=== PATIENT | female | born 1990 | race Caucasian/White ===

== ENCOUNTER 2019-09-05 18:17 | Emergency (ER) | payer BC, OTHER, SELFPAY ==
[2019-09-05 18:22] VITALS: BP 125/71; PULSE 98; RESP 18; TEMP 36.4; O2SAT 100
--- NOTE | 2019-09-05 18:31 | ED.GENADULT ---
HPI - General Adult General Chief complaint: Unspecified Stated complaint: Lupus Rash Pain Time Seen by Provider: 09/05/19 18:31 Source: patient Mode of arrival: ambulatory Limitations: no limitations History of Present Illness HPI narrative: Patient is a 29 yo female with a history of Lupus who presents to the ED for bilateral elbow rash and itching. Patient reports she used to be on Plaquenil for her SLE and has been on steroid bursts intermittently. Pt has been without her medications or reliable Rheumatology follow up since start of pandemic as office of Dr. Varma at [facility] has been moved to mostly tele health visits. Patient without any fever cough, shortness of breath, chest pain. She is reporting some right hand pain in her index finger without trauma to the hand. No redness, swelling, rash. No difficulty with movement. No weakness. Related Data Allergies Allergy/AdvReac Type Severity Reaction Status Date / Time amoxicillin Allergy Unknown Rash Verified 09/05/19 18:35 metoclopramide Allergy Unknown Other Verified 09/05/19 18:35 STATES SENSITIVE TO LOTS OF AdvReac Unknown Unknown Uncoded 09/05/19 18:35 MEDS Review of Systems Review of Systems: Narrative: CONSTITUTIONAL: Denies fever CARDIOVASCULAR: Denies chest pain RESPIRATORY: Denies cough or dyspnea. GASTROINTESTINAL: Denies abdominal pain SKIN: Reports bilateral elbow rash MUSCULOSKELETAL: Denies back pain NEUROLOGIC: Denies headache [facility] Past Medical History Medical History (Updated 09/05/19 @ 18:47 by Milka Sewell MD) Anxiety Depression Lupus Pancreatitis Pulmonary embolism Seizure Surgical History Surgical History (Updated 09/05/19 @ 18:43 by Milka Sewell MD) History of cholecystectomy Social History Social History (Updated 09/05/19 @ 18:43 by Milka Sewell MD) Smoking status: Never smoker Alcohol intake: never Substance use: never Gender identity (if verbalized by the patient): Female Exam Narrative: Exam Narrative: GENERAL: Awake, alert, conversant HEAD: Normocephalic, atraumatic. EYES: PERRLA and EOMI. ENT: Nares clear, no rhinorrhea or epistaxis. Mucous membranes moist. NECK: Supple. CHEST: No respiratory distress, breathing even and non labored HEART: Regular rate, sinus rhythm ABDOMEN:Non distended, non tender EXTREMITIES: Normal range of motion. No edema. Intact sensation in the right hand median, ulnar, radial nerve. 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 No deficits. No deformity. SKIN: Warm, dry, mild erythema to bilateral elbows, maculopapular rash, possibly early psoriasis versus eczematous changes. No herpetic lesions, blistering. Range of motion of the elbows without pain. NEURO:No focal deficits. Alert and oriented x3 Course Course Emergency Course: Patient presented for evaluation of rash and hand pain. Pain is atraumatic, exam is notable for bilateral elbow rash that seems most concerning for eczematous rash versus psoriatic rash and is probably likely related to the patient's lupus history. Patient has no sign of anaphylaxis or cellulitis. Patient is neurovascularly intact without injury or deformity. I reviewed the patient's laboratory work-up, she has been on Plaquenil in the past and we will restart this that she is currently on a's medication, we also start patient on a steroid burst and advised her she the importance of following up with her lupus doctor, Dr. Varma at [facility]. Vital Signs Vital signs: Vital Signs Temperature 36.4 C L 09/05/19 18:22 Pulse Rate 98 09/05/19 18:22 Respiratory Rate 18 09/05/19 18:22 Blood Pressure 125/71 09/05/19 18:22 Pulse Oximetry 100 09/05/19 18:22 Temperature 36.4 C L 09/05/19 18:22 Pulse Rate 98 09/05/19 18:22 Respiratory Rate 18 09/05/19 18:22 Blood Pressure 125/71 09/05/19 18:22 Pulse Oximetry 100 09/05/19 18:22 Medical Decision Making Vital Signs Vital Signs: Vital Signs Temperature 36.4 C L
[2019-09-05] MEDS: methylPREDNISolone SOD SUCC 125 MG VIAL IM (19:07)
== END 2019-09-05 19:12 | disposition home or self-care (01) ==
PROVIDERS: Emergency Provider Emergency Medicine
DX: R21 Rash and other nonspecific skin eruption (principal); M32.19 Other organ or system involvement in systemic lupus erythematosus; Z86.711 Personal history of pulmonary embolism
CPT/HCPCS: 96372; 99283; J2930

== ENCOUNTER 2019-11-09 21:03 | Emergency (ER) | payer BC, OTHER, SELFPAY ==
--- NOTE | ~2019-11-09 | CT_ITS ---
EXAMINATION: CTA chest PE abdomen pel EXAM DATE: 11/09/2019 22:18 INDICATION: Right flank pain. TECHNIQUE: Spiral CTA of the chest (pulmonary arteries) was performed with 100 cc Omnipaque 350 intr avenous contrast injection. Images were acquired during the pulmonary arterial phase. Coronal maxi mum intensity projection 3D-reconstructions were created by the technologist on dedicated workstation . Axial, coronal and sagittal reformatted images were reviewed. Spiral CT of the abdomen and pelvis was then performed with the same intravenous contrast injection. Axial, coronal and sagittal reform atted images were reviewed. The dose-length product (DLP) for this examination was 607.91 mGy-cm. T he exposure was tailored according to patient size (auto mA exposure control), and iterative reconst ruction (ASIR) was used as additional dose reduction technique. Correlation is made to CT abdomen pel vis 2014. FINDINGS: CHEST: Pulmonary arteries are well opacified and without intraluminal filling defects. No thoracic aortic dissection. Several small pulmonary nodules up to about 4 mm likely postinfectious. There i s trace right pleural effusion. Tracheobronchial tree is patent. There is no mediastinal, hilar or axillary lymphadenopathy. There is no pneumothorax. Heart normal in size. No evidence of coron melissa arterial calcification. ABDOMEN PELVIS: The liver, spleen, adrenal glands and pancreas are unremarkable. There are cholecyst ectomy clips. Previously seen biliary common bile duct stent has been removed. Portal and splenic vei ns are patent. Kidneys enhance symmetrically. There is no hydronephrosis. Numerous small renal cyst s bilaterally. No suspicious renal lesions. There is an IVC filter without evidence of thrombus below . The uterus is anteverted and morphologically normal. Previously seen IUD has been removed. Physiol ogic right ovarian cyst. The bladder is unremarkable. There is a lymph node just deep to the left inguinal canal measuring 1.5 x 1.2 cm, the largest lymph node identified. Other scattered pelvic lymp h nodes upper limits of normal in size. Nodes have increased in conspicuity, size compared to 2014. The appendix is normal. The stomach and small bowel are unremarkable. There is expected amount of c olonic stool. No free intraperitoneal gas. There are no osteoblastic or osteolytic lesions identi fied. IMPRESSION: 1. No pulmonary emboli or acute intra-abdominal findings. 2. Single mildly enlarged left external iliac lymph node, with other scattered bilateral pelvic lymp h nodes and axillary lymph nodes upper limits of normal in size. Probably reactive. Optional follow- up [address] pelvis. 3. Several small pulmonary nodules likely postinfectious. Optional one-year follow-up low-dose chest CT. Reviewed, dictated and finalized at location A. IMPRESSION: 1. No pulmonary emboli or acute intra-abdominal findings. 2. Single mildly enlarged left external iliac lymph node, with other scattered bilateral pelvic lymph nodes and axillary lymph nodes upper limits of normal i n size. Probably reactive. Optional follow-up [address] pelvis. 3. Several small pulmonary nodules likely postinfectious. Optional one-year fo llow-up low-dose chest CT.
[2019-11-09 21:08] VITALS: BP 115/75; PULSE 78; RESP 20; TEMP 37.1; O2SAT 100
[2019-11-09 21:27] LABS: Basophils Percent Auto 0.5 % (0.2-1.2); Eosinophils Absolute Auto 0.1 K/mm3 (0-0.3); Eosinophils Percent Auto 1.1 % (0-4.4); Hematocrit 35.1 % (37.0-47.0); Hemoglobin 12.2 g/dL (12.0-15.0); Immature Granulocyte Absolute 0.02 K/mm3 (0.00-0.031); Immature Granulocyte Percent A 0.4 % (0-0.5); Lymphocytes Absolute Auto 1.76 K/mm3 (0.9-3.2); Mean Corpuscular HGB Conc 34.8 g/dl (32-36); Mean Corpuscular Hemoglobin 29.3 pg (26-34); Mean Corpuscular Volume 84.4 fl (80-100); Mean Platelet Volume 10.1 fl (7.4-10.4); Monocytes Absolute Auto 0.5 K/mm3 (0.1-0.6); Monocytes Percent Auto 9.3 % (2.6-8.5); Neutrophils Absolute Auto 3.3 K/mm3 (1.3-6.7); Neutrophils Percent Auto 57.7 % (45.5-73.1); Platelet Count Result 237 k/mm3 (150-375); Red Blood Count 4.16 M/mm3 (4.2-5.4); Red Cell Distribution Width 13.7 % (11.5-14.5); White Blood Count 5.7 K/mm3 (4.5-10.0)
[2019-11-09 21:31] LABS: Add Urine Microscopic? YES; Appearance Urine Clear (Clear); Bacteria Urine Trace /hpf; Bilirubin Urine Negative (Negative); Blood Urine Negative (Negative); Color Urine Yellow (Yellow); Glucose Urine UA Negative (Negative); Ketones Urine Negative (Negative); Leukocyte Esterase Ur Negative LEU/UL (Negative); Mucus Urine Moderate /lpf; Nitrate Urine Negative (Negative); Protein Urine 1+ mg/dL (Negative); RBC Urine 0-2 /hpf (0-2); Specific Grav Ur 1.029 (1.001-1.035); Squamous Epithelial Cell Urine Few /hpf (Few)
--- NOTE | 2019-11-09 21:31 | ED.ABDPAIN ---
HPI - Abdominal Pain General Chief Complaint: Abdominal Pain Stated Complaint: R FLANK PAIN Time Seen by Provider: 11/09/19 21:08 Source: RN notes reviewed History of Present Illness HPI narrative: Patient presents emergency department from home for flank pain. Patient states the pain began yesterday. Pain is located in the right flank described as sharp and stabbing in nature does not radiate. States the pain does improve when she lays down she denies any fevers or chills abdominal pain nausea vomiting diarrhea or any other symptoms. Patient does states she has a history of lupus and pulmonary embolism back in 2012 is no longer on blood thinners. States she took no pain medication today Related Data Allergies Allergy/AdvReac Type Severity Reaction Status Date / Time amoxicillin Allergy Unknown Rash Verified 09/05/19 18:35 metoclopramide Allergy Unknown Other Verified 09/05/19 18:35 STATES SENSITIVE TO LOTS OF AdvReac Unknown Unknown Uncoded 09/05/19 18:35 MEDS Review of Systems Review of Systems: Narrative: Gen.: Denies fevers or chills ENT: Denies congestion Respiratory: Denies shortness of breath or cough CV: Denies chest pain or palpitations GI: Denies abdominal pain nausea, emesis or diarrhe reports right flank pain denies burning, urgency, frequency or hematuria Musculoskeletal: Denies back pain or muscle pain Neuro: Denies numbness, tingling, weakness or focal weakness Skin: Denies rash Except as documented, all other systems reviewed and negative [facility] Past Medical History Medical History Anxiety Depression Lupus Pancreatitis Pulmonary embolism Seizure Surgical History Surgical History (Updated 09/05/19 @ 18:43 by Milka Sewell MD) History of cholecystectomy Social History Social History Smoking status: Never smoker Alcohol intake: never Substance use: never Gender identity (if verbalized by the patient): Female Exam Narrative: Exam Narrative: APPEARANCE: No acute distress, nontoxic, resting in bed EYES: EOMI HEENT: Normocephalic, atraumatic, OMM RESPIRATORY: No respiratory distress Clear to auscultation bilaterally with no rhonchi wheezing or rales. CARDIOVASCULAR: Regular rate and rhythm without murmurs rubs or gallops. ABDOMINAL: Soft, nontender, nondistended, no rebound or guarding tender in right flank no overlying rash Back: Normal MUSCULOSKELETAl: Moves all extremities. No clubbing, cyanosis or edema. NEURO: Awake and alert. Following commands, speech normal, no focal deficits SKIN:: Warm, dry. No rashes lesions or abrasions PSYCHIATRIC: Normal affect/mood, Course Course Emergency Course: Following CT scan again reexamined no tenderness in right lower quadrant believe this is musculoskeletal at this time Discussed with patient results of workup and diagnosis. Discussed need for follow-up with primary care, proper use of medication, and reasons to return to the emergency department. Patient understands and agrees to current treatment plan Vital Signs Vital signs: Vital Signs Temperature 98.8 F 11/09/19 21:08 Pulse Rate 78 11/09/19 21:08 Respiratory Rate 20 11/09/19 21:08 Blood Pressure 115/75 11/09/19 21:08 Pulse Oximetry 100 11/09/19 21:08 Temperature 98.8 F 11/09/19 21:08 Pulse Rate 78 11/09/19 23:23 Respiratory Rate 16 11/09/19 23:23 Blood Pressure 122/74 11/09/19 23:23 Pulse Oximetry 98 11/09/19 23:23 MDM - Abdominal Pain Lab Data Result diagrams: 11/09/19 21:21 11/09/19 21:21 Labs: Lab Results 11/09/19 11/09/19 11/09/19 Range/Units 21:21 21:21 21:21 WBC 5.7 (4.5-10.0) K/mm3 RBC 4.16 L (4.2-5.4) M/mm3 Hgb 12.2 (12.0-15.0) g/dL Hct 35.1 L (37.0-47.0) % MCV 84.4 (80-100) fl MCH 29.3 (26-34) pg MCHC 34.8 (32-36) g/dl RDW 13.7 (11.5-14.5)
--- NOTE | 2019-11-09 21:33 | ECG_ITS ---
Measurements Intervals [place] Rate: 72 P: 36 [place]: 140 QRS: 43 QRSD: 90 T: 29 QT: 389 QTc: 428 Interpretive Statements SINUS RHYTHM POSSIBLE LEFT ATRIAL ENLARGEMENT INCOMPLETE RIGHT BUNDLE BRANCH BLOCK BORDERLINE T WAVE ABNORMALITY- ANTERIOR LEADS BORDERLINE ECG Electronically Signed On 11-10-2019 7:33:04 CDT by Rina Mallory D.O.
[2019-11-09 21:38] LABS: Alanine Aminotransferase 39 U/L (4-35); Albumin Level 4.6 g/dL (3.5-5.1); Alkaline Phosphatase 64 U/L (38-126); Anion Gap 11.8 mmol/L (7-16); Aspartate Amino Transferase 49 U/L (14-36); Blood Urea Nitrogen 11 mg/dL (7-17); Calcium 9.3 mg/dL (8.4-10.2); Carbon Dioxide 27 mmol/L (22-30); Chloride 101 mmol/L (98-107); Estimated CRCL calculation 125 ml/min; Estimated Glomerular Filt Rate > 60; Glucose 102 mg/dL (65-105); Lipase 148 U/L (23-300); Potassium 3.8 mmol/L (3.4-5.0); Sodium 136 mmol/L (137-145)
[2019-11-09 21:48] LABS: INR 0.9; Partial Thromboplastin Time 27.5 SECONDS (22.3-36.8); Prothrombin Time 12.2 Seconds (11.1-14.7)
[2019-11-09] MEDS: ONDANSETRON INJ 4 MG/2 ML VIAL IV PUSH (22:31)
[2019-11-09] MEDS: MORPHINE SULFATE 4 MG/ML INJ IV PUSH (23:20)
[2019-11-09 23:23] VITALS: BP 122/74; PULSE 78; RESP 16; O2SAT 98
[2019-11-10 00:14] VITALS: BP 118/73; PULSE 81; RESP 16; O2SAT 99
== END 2019-11-10 00:15 | disposition home or self-care (01) ==
PROVIDERS: Emergency Provider Emergency Medicine
DX: R10.9 Unspecified abdominal pain (principal); Z86.711 Personal history of pulmonary embolism; R94.31 Abnormal electrocardiogram [ECG] [EKG]; I45.10 Unspecified right bundle-branch block
CPT/HCPCS: 36415; 71275; 74177; 80053; 81001; 81025; 83690; 85025; 85610; 85730; 93005; 96365; 96375; 99284; J0131; J2270; J2405; Q9967

== ENCOUNTER 2019-11-18 01:00 | Emergency (ER) | payer BC, OTHER, SELFPAY ==
--- NOTE | ~2019-11-18 | CT_ITS ---
EXAMINATION: CT soft tissue neck w con DATE: 11/18/2019 03:05 INDICATION: Right-sided neck pain. TECHNIQUE: Computed tomography (CT) of the neck was performed with 75 mL Omnipaque-350 intravenous co ntrast. Automated exposure control and iterative reconstruction technique were employed. The dose-nora gth product was 365.26 mGy-cm. COMPARISON: Chest CT 11/09/2019 FINDINGS: The palatine tonsils and lingual tonsils are enlarged. The epiglottis is normal. There are no pathologically enlarged lymph nodes. Tooth 5 is broken. There are carious lesions in teeth 3, 4, 1 9, and 20. IMPRESSION: 1. Enlarged palatine and lingual tonsils. No abscess. 2. Dental disease. Reviewed, dictated and finalized at location B.
[2019-11-18 01:03] VITALS: BP 114/73; PULSE 81; RESP 15; TEMP 37.3; O2SAT 100
--- NOTE | 2019-11-18 01:59 | ED.GENADULT ---
HPI - General Adult General Chief complaint: Ear Stated complaint: Intense ear pain Time Seen by Provider: 11/18/19 01:55 History of Present Illness HPI narrative: Patient presents with severe pain under and beneath her right ear. She also has a bad sore throat particularly on the right. She is never had a peritonsillar abscess. Started a couple days. She has had no fever chills or sweats. She has a hard time swallowing. Touching on the outside or swallowing makes it worse. She has lupus and she is on Plaquenil. 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. She is not on prednisone currently. She does not smoke cigarettes, drinks some alcohol, and does some marijuana. 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 Onset (ago): day(s) Location: neck Radiation: non-radiation Severity: severe Severity scale (1-10): 8 Quality: aching Pain Consistency: constant Relieving factors: none Exacerbating factors: other (Swallowing or palpitation) Associated symptoms: denies other symptoms Related Data Allergies Allergy/AdvReac Type Severity Reaction Status Date / Time amoxicillin Allergy Unknown Rash Verified 11/18/19 01:11 metoclopramide Allergy Unknown Other Verified 11/18/19 01:11 STATES SENSITIVE TO LOTS OF AdvReac Unknown Unknown Uncoded 11/18/19 01:11 MEDS Review of Systems Review of Systems: Narrative: CONSTITUTIONAL: Denies fever, chills, or sweats. EYES: Denies visual changes, redness, or discharge. ENT: Denies rhinorrhea, congestion, but does have sore throat, and ear pain. CARDIOVASCULAR: Denies chest pain, palpitations, or edema. RESPIRATORY: Denies cough or dyspnea. GASTROINTESTINAL: Denies abdominal pain, nausea, vomiting, or diarrhea. GENITOURINARY: Denies dysuria or hematuria. SKIN: Denies rash or itching. MUSCULOSKELETAL: Denies back pain, joint pain, or myalgia. NEUROLOGIC: Denies headache, numbness, or weakness. . All systems reviewed & are unremarkable except as noted in HPI and below PMFSH Past Medical History Medical History Anxiety Depression Lupus Pancreatitis Pulmonary embolism Seizure Surgical History Surgical History History of cholecystectomy Social History Social History Smoking status: Never smoker Alcohol intake: never Substance use: never Gender identity (if verbalized by the patient): Female Exam Narrative: Exam Narrative: GENERAL: Well-appearing, well-nourished, crying. HEAD: Normocephalic, atraumatic. EYES: PERRLA and EOMI. ENT: Nares clear, no rhinorrhea or epistaxis. Mucous membranes moist. Cannot see very well if the right soft palate is greater than the left. Tenderness beneath and behind the ear on the neck. NECK: Supple. CHEST: Clear to auscultation. No respiratory distress. HEART: Regular rate and rhythm. No murmur heard. Normal peripheral pulses. ABDOMEN: Soft, nontender, nondistended, normal active bowel sounds. EXTREMITIES: Normal range of motion. No edema. SKIN: Warm, dry, no rash. NEURO: No focal deficits. Alert and oriented x3. PSYCH: Sad and crying. Course Reevaluation(s) Reevaluation #1: Went in to tell the patient that there is no peritonsillar abscess. She does have tonsillitis. She tells me that she gets hives with amoxicillin. We will give clindamycin. She asked for a day off work. Date: 11/18/19 Time: 03:28 Vital Signs Vital signs: Vital Signs Temperature 99.2 F 11/18/19 01:03 Pulse Rate 81 11/18/19 01:03 Respiratory Rate 15 11/18/19 01:03 Blood Pressure 114/73 11/18/19 01:03 Pulse Oximetry 100 11/18/19 01:03 Temperature 99.2 F 11/18/19 01:03 Pulse Rate 81 11/18/19 01:03 Respiratory Rate 15 11/18/19 01:03 Blood Pressure 114/73 11/18/19 01:03 Pulse Oximetry 100 11/18/19 01:03 Medical Decision Making Medical Records Medical records rev
[2019-11-18] MEDS: MORPHINE SULFATE 4 MG/ML INJ IV PUSH (02:17)
[2019-11-18] MEDS: SODIUM CHLORIDE 0.9% IV 1,000 ML 999 ML IV CONT (02:18)
[2019-11-18 02:30] LABS: Basophils Percent Auto 0.2 % (0.2-1.2); Eosinophils Absolute Auto 0.1 K/mm3 (0-0.3); Eosinophils Percent Auto 1.5 % (0-4.4); Hematocrit 30.9 % (37.0-47.0); Hemoglobin 10.8 g/dL (12.0-15.0); Immature Granulocyte Absolute 0.02 K/mm3 (0.00-0.031); Immature Granulocyte Percent A 0.4 % (0-0.5); Lymphocytes Percent Auto 25.1 % (18.3-44.2); Mean Corpuscular Hemoglobin 29.3 pg (26-34); Mean Corpuscular Volume 83.7 fl (80-100); Mean Platelet Volume 10.2 fl (7.4-10.4); Monocytes Absolute Auto 0.5 K/mm3 (0.1-0.6); Monocytes Percent Auto 8.9 % (2.6-8.5); Neutrophils Absolute Auto 3.3 K/mm3 (1.3-6.7); Neutrophils Percent Auto 63.9 % (45.5-73.1); Platelet Count Result 233 k/mm3 (150-375); Red Blood Count 3.69 M/mm3 (4.2-5.4); Red Cell Distribution Width 13.3 % (11.5-14.5); White Blood Count 5.2 K/mm3 (4.5-10.0)
[2019-11-18 02:42] LABS: Lactic Acid 0.9 mmol/L (0.7-2.1)
[2019-11-18 02:43] LABS: Alanine Aminotransferase 31 U/L (4-35); Albumin Level 4.1 g/dL (3.5-5.1); Alkaline Phosphatase 70 U/L (38-126); Anion Gap 8 mmol/L (8-16); Aspartate Amino Transferase 41 U/L (14-36); Bilirubin,Total 0.6 mg/dL (0.2-1.3); Blood Urea Nitrogen 8 mg/dL (7-17); Calcium 9.1 mg/dL (8.4-10.2); Carbon Dioxide 23 mmol/L (22-30); Chloride 105 mmol/L (98-107); Estimated CRCL calculation 151 ml/min; Estimated Glomerular Filt Rate > 60; Glucose 109 mg/dL (65-105); Potassium 3.3 mmol/L (3.4-5.0); Sodium 136 mmol/L (137-145)
[2019-11-18] MEDS: CLINDAMYCIN HCL 150 MG CAP 300 MG PO (03:37)
[2019-11-18 03:40] VITALS: BP 122/79; PULSE 85; RESP 18; TEMP 36.8; O2SAT 98
== END 2019-11-18 03:41 | disposition home or self-care (01) ==
PROVIDERS: Emergency Provider Emergency Medicine
DX: J03.90 Acute tonsillitis, unspecified (principal); Z86.711 Personal history of pulmonary embolism
CPT/HCPCS: 36415; 70491; 80053; 83605; 85025; 87040; 87081; 87880; 96361; 96374; 99284; A9270; J2270; J7030; Q9967

== ENCOUNTER 2019-11-27 17:23 | Emergency (ER) | payer BC, OTHER, SELFPAY ==
--- NOTE | ~2019-11-27 | US_ITS ---
EXAMINATION: US pelvic complete w TV DATE: 11/27/2019 18:20 INDICATION: Low back and pelvic pain. TECHNIQUE: Multiple transabdominal and endovaginal sonographic images of the pelvis were obtained. COMPARISON: CT abdomen and pelvis dated 12/08/2013 FINDINGS: The anteverted uterus measures 6.5 x 3.9 x 4.3 cm. The endometrial complex measures 6 mm in thicknes s. A couple tiny nabothian cysts at the cervix. The right ovary measures 3.3 x 2.1 x 2.1 cm. The left ovary measures 3.0 x 2.4 x 2.6 cm. Bilateral anechoic ovarian cysts/follicles measuring 2.3 cm in th e left and 1.7 cm on the right. There is normal vascular flow in the ovaries. There is no free fluid in the pelvis. IMPRESSION: 1. Normal pelvic ultrasound. Reviewed, dictated and finalized at location A.
--- NOTE | ~2019-11-27 | CT_ITS ---
EXAMINATION: CT abdomen pelvis w con DATE: 11/27/2019 19:13 INDICATION: Left-sided abdominal and pelvic pain. TECHNIQUE: Computed tomography (CT) of the abdomen and pelvis was performed with 100 mL Omnipaque-350 intravenous contrast. Automated exposure control and iterative reconstruction technique were employe d. The dose-length product was 384.55 mGy-cm. COMPARISON: 11/09/2019 FINDINGS: Lung bases are clear. Heart size is normal. Indeterminate calcification along the inferior wall of th e right ventricle, unclear whether atherosclerotic or myocardial. No pericardial effusion. Cholecyste ctomy clips at the gallbladder fossa. Liver, spleen and bilateral adrenal glands are normal. There is likely inflammatory haziness to the fat surrounding the bilateral renal pelvises sees and ureters varner ggesting ascending urinary tract infections with pyelitis. Consider multiple bilateral low-attenuatio n renal cysts. Localized fatty atrophy to the tail of the pancreas with surrounding stranding which m ay represent sequela of prior pancreatitis cannot exclude acute interstitial pancreatitis. Infrarenal IVC filter. Bowels including the appendix are normal. Bilateral ovarian cysts/follicles measuring up to 2.2 cm on the left. Anteverted uterus is normal. Additional mild haziness surrounding the was nor mal-appearing bladder consistent with cystitis. No free intraperitoneal gas or fluid. No pathological ly enlarged abdominal or pelvic lymphadenopathy. Bones are unremarkable. IMPRESSION: 1. Inflammatory haziness to the fat surrounding the bladder, bilateral ureters and renal pelvises see s consistent with ascending urinary tract infection including cystitis and bilateral pyelitis. Correl ate with urinalysis. 2. Subtle stranding at the site of fatty atrophy of the tail of the pancreas likely sequela of chroni c pancreatitis although could not exclude acute pancreatitis. Correlate with clinical history and wit h amylase and lipase levels. Reviewed, dictated and finalized at location A. IMPRESSION: 1. Inflammatory haziness to the fat surrounding the bladder, bilateral ureters and renal pelvises sees consistent with ascending urinary tract infection inclu ding cystitis and bilateral pyelitis. Correlate with urinalysis. 2. Subtle stranding at the site of fatty atrophy of the tail of the pancreas karlos marrero sequela of chronic pancreatitis although could not exclude acute pancreati tis. Correlate with clinical history and with amylase and lipase levels.
[2019-11-27 17:45] VITALS: BP 104/64; PULSE 73; RESP 16; TEMP 36.7; O2SAT 98
--- NOTE | 2019-11-27 18:07 | ED.ABDPAIN ---
HPI - Abdominal Pain General Chief Complaint: Vaginal Bleeding <Holly Barkley PA-C - Last Filed: 11/27/19 21:28> Stated Complaint: Cyst On Ovary, Vag Bleeding <GARRETT Soto Last Filed: 11/27/19 21:28> Time Seen by Provider: 11/27/19 17:33 <Holly Barkley PA-C - Last Filed: 11/27/19 21:28> Source: patient <GARRETT Soto Last Filed: 11/27/19 21:28> Mode of arrival: ambulatory <GARRETT Soto Last Filed: 11/27/19 21:28> Limitations: no limitations <GARRETT Soto Last Filed: 11/27/19 21:28> History of Present Illness HPI narrative: This is a 29 year old female that presents to the ER for left lower back/pelvic pain since last night. Reports she started having vaginal spotting today. Reports she had just gotten off of her period. Reports dysuria. Denies fever, nausea, vomiting. <Holly Barkley PA-C - Last Filed: 11/27/19 21:28> Related Data Allergies/Adverse Reactions: Allergies Allergy/AdvReac Type Severity Reaction Status Date / Time amoxicillin Allergy Unknown Rash Verified 11/27/19 17:51 metoclopramide Allergy Unknown Other Verified 11/27/19 17:51 STATES SENSITIVE TO LOTS OF AdvReac Unknown Unknown Uncoded 11/18/19 01:11 MEDS <Holly Barkley PA-C - Last Filed: 11/27/19 21:28> Review of Systems Review of Systems: Narrative: CONSTITUTIONAL: Denies fever GASTROINTESTINAL: Reports abdominal/pelvic pain. Denies nausea, vomiting GENITOURINARY: Reports dysuria. Denies hematuria. MUSCULOSKELETAL: Reports back pain <GARRETT Soto Last Filed: 11/27/19 21:28> All systems reviewed & are unremarkable except as noted in HPI and below <GARRETT Soto Last Filed: 11/27/19 21:28> [facility], [facility] Social History Social History: Social History Smoking status: Never smoker Alcohol intake: never Substance use: never Gender identity (if verbalized by the patient): Female <Holly Barkley PA-C - Last Filed: 11/27/19 21:28> Exam Narrative: Exam Narrative: GENERAL: Well-appearing, well-nourished, and in no acute distress. HEAD: Normocephalic, atraumatic. EYES: EOMI. CHEST: Clear to auscultation. No respiratory distress. No wheezes rales or rhonchi HEART: Regular rate and rhythm. No murmur heard. Normal peripheral pulses. ABDOMEN: Soft, nondistended, normal active bowel sounds. Mild tenderness to palpation to the LLQ, without guarding. No CVA tenderness. EXTREMITIES: Normal range of motion. No edema. Strength equal in bilateral lower extremities (5/5) SKIN: Warm, dry, no rash. NEURO: No focal deficits. Alert and oriented x3. PSYCH: Normal mood and affect PELVIC: Normal external genitalia. Normal appearing cervix with mild white discharge. No CMT <Holly Barkley PA-C - Last Filed: 11/27/19 21:28> Course Vital Signs Vital signs: Vital Signs Temperature 36.7 C 11/27/19 17:45 Pulse Rate 73 11/27/19 17:45 Respiratory Rate 16 11/27/19 17:45 Blood Pressure 104/64 11/27/19 17:45 Pulse Oximetry 98 11/27/19 17:45 Temperature 36.8 C 11/27/19 21:41 Pulse Rate 78 11/27/19 21:41 Respiratory Rate 16 11/27/19 21:41 Blood Pressure 106/72 11/27/19 21:41 Pulse Oximetry 100 11/27/19 21:41 <Holly Barkley PA-C - Last Filed: 11/27/19 21:28> Vital Signs Temperature 36.7 C 11/27/19 17:45 Pulse Rate 73 11/27/19 17:45 Respiratory Rate 16 11/27/19 17:45 Blood Pressure 104/64 11/27/19 17:45 Pulse Oximetry 98 11/27/19 17:45 Temperature 36.8 C 11/27/19 21:41 Pulse Rate 78 11/27/19 21:41 Respiratory Rate 16 11/27/19 21:41 Blood Pressure 106/72 11/27/19 21:41 Pulse Oximetry 100 11/27/19 21:41 <Milka Sewell MD - Last Filed: 11/27/19 21:46> MDM - Abdominal Pain MDM Narrative Medical decision making narrative: Patient presents to the emergency department for left sided flank/abdomi
[2019-11-27] MEDS: SODIUM CHLORIDE 0.9% IV 1,000 ML 999 ML IV CONT (18:25)
[2019-11-27 18:30] LABS: Hematocrit 33.2 % (37.0-47.0); Hemoglobin 11.4 g/dL (12.0-15.0); Mean Corpuscular HGB Conc 34.3 g/dl (32-36); Mean Corpuscular Hemoglobin 29.3 pg (26-34); Mean Corpuscular Volume 85.3 fl (80-100); Mean Platelet Volume 10.3 fl (7.4-10.4); Platelet Count Result 245 k/mm3 (150-375); Red Blood Count 3.89 M/mm3 (4.2-5.4); Red Cell Distribution Width 13.9 % (11.5-14.5); White Blood Count 5.6 K/mm3 (4.5-10.0)
[2019-11-27 18:35] LABS: Add Urine Microscopic? YES; Appearance Urine Cloudy (Clear); Bacteria Urine 2+ /hpf; Bilirubin Urine Negative (Negative); Blood Urine 2+ (Negative); Color Urine Yellow (Yellow); Glucose Urine UA Negative (Negative); Ketones Urine Negative (Negative); Leukocyte Esterase Ur 2+ LEU/UL (Negative); Mucus Urine Rare /lpf; Nitrate Urine Positive (Negative); Protein Urine 2+ mg/dL (Negative); RBC Urine 21-50 /hpf (0-2); Specific Grav Ur 1.019 (1.001-1.035); Squamous Epithelial Cell Urine Occasional /hpf (Few); Urobilinogen Urine Negative mg/dL (<2.0); WBC Urine >75 /hpf
[2019-11-27 18:40] LABS: Prothrombin Time 12.4 Seconds (11.1-14.7)
[2019-11-27 18:41] LABS: Partial Thromboplastin Time 27.5 SECONDS (22.3-36.8)
[2019-11-27 18:43] LABS: Anion Gap 9 mmol/L (8-16); Blood Urea Nitrogen 11 mg/dL (7-17); Calcium 9.4 mg/dL (8.4-10.2); Carbon Dioxide 27 mmol/L (22-30); Chloride 105 mmol/L (98-107); Estimated CRCL calculation 124 ml/min; Estimated Glomerular Filt Rate > 60; Glucose 89 mg/dL (65-105); Potassium 3.8 mmol/L (3.4-5.0); Sodium 141 mmol/L (137-145)
[2019-11-27 18:48] LABS: Band Neutrophils Percent 3 % (0-6); Lymphocytes Absolute Manual 1.45 K/mm3 (1.1-4.5); Monocytes Absolute Manual 0.28 K/mm3 (0.1-0.90); Monocytes Percent Manual 5 % (3-9); Neutrophils Absolute Manual 3.86 K/mm3 (1.7-7.2); Neutrophils Percent Manual 66 % (46-73); Platelet Estimate Adequate (Adequate); Total Cells Counted 100
[2019-11-27 19:00] LABS: Beta HCG Quantitative < 2.39 mIU/ML
[2019-11-27] MEDS: ONDANSETRON INJ 4 MG/2 ML VIAL IV PUSH (19:22)
[2019-11-27] MEDS: MORPHINE SULFATE 4 MG/ML INJ IV PUSH (19:22)
[2019-11-27] MEDS: diphenhydrAMINE HCl INJ 50 MG/ML VIAL 25 MG IV PUSH (19:35)
--- NOTE | 2019-11-27 19:46 | PC.NURSE ---
pt c/o itching after morphine given, notified, benadryl IV given as ordered. pt stated immediate relief.
[2019-11-27 19:47] LABS: Lipase 82 U/L (23-300)
[2019-11-27 21:41] VITALS: BP 106/72; PULSE 78; RESP 16; TEMP 36.8; O2SAT 100
== END 2019-11-27 21:41 | disposition home or self-care (01) ==
PROVIDERS: Physician Assistant; Emergency Provider Emergency Medicine
DX: N12 Tubulo-interstitial nephritis, not specified as acute or chronic (principal)
CPT/HCPCS: 36415; 74177; 76830; 76856; 80048; 81001; 81025; 81479; 83690; 84702; 85025; 85610; 85730; 86850; 86860; 86870; 86880; 86900; 86901; 86902; 86970; 86978; 87070; 87077; 87086; 87088; 87186; 87491; 87591; 87808; 96365; 96367; 96375; 99284; J0131; J1200; J1956; J2270; J2405; J7030; Q9967

== ENCOUNTER 2019-12-13 18:16 | Emergency (ER) | payer BC, OTHER, SELFPAY ==
--- NOTE | ~2019-12-13 | CT_ITS ---
EXAMINATION: CTA chest DATE: 12/13/2019 21:54 INDICATION: Dizziness. Lupus. History of seizures. TECHNIQUE: Computed tomography angiography (CTA) of the chest was performed with 100 mL Omnipaque-350 intravenous contrast timed to evaluate the pulmonary arteries. Coronal maximum intensity projection 3D-reconstructions were created by the technologist. Automated exposure control and iterative reconst ruction technique were employed. Exam dose: 238.56 mGy-cm total exam DLP. COMPARISON: 11/09/2019 CTA chest abdomen pelvis 12/12/2021 view chest FINDINGS: There is diagnostic contrast enhancement of the pulmonary arteries and no evidence of pulmo nary embolism. The included portion of the thyroid gland is unremarkable. No hilar or mediastinal mass lesion or lym phadenopathy. No thoracic aortic aneurysm or dissection. Infrarenal IVC filter. Normal morphology of the adrenal glands. No renal mass lesion is evident. Status post cholecystectomy. The spleen measures within upper limits of normal size at 11.5 cm height, with 14 cm being upper limi ts of normal. Normal caliber of the abdominal aorta. 3 mm nodule along the lateral aspect of the greater fissure, right lower lobe, series 4 image 45. Calcified 5 mm nodule at the lateral aspect of the left greater fissure (series 4 image 62). Small calcified left lower lobe peripheral pulmonary granuloma (image 63). No pulmonary infiltrate or consolidation. IMPRESSION: No evidence of pulmonary embolism IVC filter Status post cholecystectomy Reviewed, dictated and finalized at [facility]. Reviewed, dictated and finalized at [facility].
--- NOTE | ~2019-12-13 | XR_ITS ---
XR chest 2V DATE: 12/13/2019 20:23 INDICATION: Dizziness. Nausea and vomiting. Lupus. History of seizures. TECHNIQUE: PA and lateral views COMPARISON: 11/09/2019 CT pulmonary scan 12/06/2012 two-view chest FINDINGS: IVC filter device is noted Status post cholecystectomy. Borderline heart size. No hilar or mediastinal enlargement. No pulmonary infiltrate or consolidation, pleural effusion or pulmonary vascular congestion or pneumo thorax. IMPRESSION: Borderline heart size No active pulmonary disease IVC filter Status post cholecystectomy Reviewed, dictated and finalized at [facility].
--- NOTE | 2019-12-13 18:25 | ECG_ITS ---
Measurements Intervals [place] Rate: 80 P: 40 [place]: 131 QRS: 28 QRSD: 86 T: 7 QT: 371 QTc: 428 Interpretive Statements SINUS RHYTHM BORDERLINE ST-T WAVE ABNORMALITY- ANT/INF LEADS BASELINE ARTIFACT- V5 BORDERLINE ECG Electronically Signed On 12-14-2019 6:44:46 CDT by Rian Mallory D.O.
[2019-12-13 18:26] VITALS: BP 109/77; PULSE 84; RESP 16; TEMP 36.7; O2SAT 99
--- NOTE | 2019-12-13 18:40 | PC.NURSE ---
unable to draw pt's blood x 2 attempts
--- NOTE | 2019-12-13 19:59 | ED.DIZZY ---
HPI - Dizziness General Chief Complaint: Dizziness Stated Complaint: dizziness, near syncope Time Seen by Provider: 12/13/19 19:43 Source: patient Mode of arrival: ambulatory Limitations: no limitations History of Present Illness HPI Narrative: This patient is a 29 year old female who presents for evaluation of dizzinesss. Patient reports she developed dizziness with nasuea and vomiting around 4 pm today. She reports her dizziness is worse with standing and if she would have stood up longer she would have passed out. She reports lower back pain, headache, nausea and sob with her dizziness. She is also concerned that she started her menstrual cycle 1 week early and it has been heavier than normal. She reports going through 2 super tampons in 4 hours. MD elicited complaint: dizziness and lightheadedness Onset (ago): hour(s) Timing: sudden onset Context: change in body position Related Data Allergies Allergy/AdvReac Type Severity Reaction Status Date / Time amoxicillin Allergy Unknown Rash Verified 12/13/19 18:48 metoclopramide Allergy Unknown Other Verified 12/13/19 18:48 sulfamethoxazole Allergy Unknown Verified 12/13/19 20:02 [From Bactrim] trimethoprim [From Bactrim] Allergy Unknown Verified 12/13/19 20:02 Review of Systems Review of Systems: All systems reviewed & are unremarkable except as noted in HPI and below Constitutional: Constitutional: Denies chills and Denies fever(s) Eyes: Eyes: Reports change in vision ENT: Reports dizziness and Denies sore throat Cardiovascular: Cardiovascular: Denies chest pain and Denies radiating jaw, neck or arm pain Respiratory: Respiratory: Denies cough and Reports dyspnea Gastrointestinal: Gastrointestinal: Denies abdominal pain, Reports nausea and Denies vomiting Genitourinary: Genitourinary: Reports abnormal vaginal bleeding Musculoskeletal: Musculoskeletal: Reports back pain Neurologic: Reports dizziness and Reports headache(s) [facility] Social History Social History Smoking status: Never smoker Alcohol intake: never Substance use: never Gender identity (if verbalized by the patient): Female Exam Narrative: Exam Narrative: GENERAL: Well-appearing, well-nourished, and in no acute distress. HEAD: Normocephalic, atraumatic EYES: PERRLA and EOMI, conjunctiva clear without discharge, no nystagmus EARS: TM's clear bilaterally without erythema or dullness NOSE: Nares clear, no rhinorrhea or epistaxis THROAT:Mucous membranes moist, Oropharynx normal without erythema, exudate, peritonsillar swelling or fluctuance NECK: Supple, without lymphadenopathy or mass RESPIRATORY: No respiratory distress, Airway patent, Respirations non-labored, Clear to auscultation without rales, rhonchi or wheeze HEART: Regular rate and rhythm. No murmur heard. Normal peripheral pulses. ABDOMEN: Soft, nontender, nondistended, normal active bowel sounds. No masses. No rebound or guarding, No organomegaly. EXTREMITIES: No edema, normal strength with full range of motion. SKIN: Warm, dry, normal color without rash NEURO: Alert and oriented x3. CN 2-12 grossly intact. No focal deficits.normal finger to nose. normal gait PSYCH: Normal mood and affect. Course Reevaluation(s) Reevaluation #1: PAtient has been ambulating to the bathroom with out difficulty. Evaluation has been unremarkable. Date: 12/13/19 Time: 23:05 Vital Signs Vital signs: Vital Signs Temperature 98.1 F 12/13/19 18:26 Pulse Rate 84 12/13/19 18:26 Respiratory Rate 16 12/13/19 18:26 Blood Pressure 109/77 12/13/19 18:26 Pulse Oximetry 99 12/13/19 18:26 Temperature 98.1 F 12/13/19 18:26 Pulse Rate 68 12/13/19 23:05 Respiratory Rate 15 12/13/19 23:05 Blood Pressure 123/88 12/13/19 23:05 Pulse Oximetry 97 12/13/19 23:05 MDM - Dizziness Lab Data Attestation: I reviewed the patient's lab results. Result diagr
[2019-12-13 20:05] VITALS: BP 121/80; BP 128/73; PULSE 69; PULSE 70
[2019-12-13 20:06] VITALS: BP 111/84; PULSE 77
[2019-12-13 20:12] LABS: Basophils Percent Auto 0.6 % (0.2-1.2); Eosinophils Absolute Auto 0.1 K/mm3 (0-0.3); Eosinophils Percent Auto 1.5 % (0-4.4); Hematocrit 36.4 % (37.0-47.0); Hemoglobin 12.3 g/dL (12.0-15.0); Immature Granulocyte Absolute 0.01 K/mm3 (0.00-0.031); Immature Granulocyte Percent A 0.2 % (0-0.5); Lymphocytes Absolute Auto 1.49 K/mm3 (0.9-3.2); Lymphocytes Percent Auto 27.8 % (18.3-44.2); Mean Corpuscular HGB Conc 33.8 g/dl (32-36); Mean Corpuscular Hemoglobin 28.9 pg (26-34); Mean Corpuscular Volume 85.6 fl (80-100); Mean Platelet Volume 10.1 fl (7.4-10.4); Monocytes Absolute Auto 0.4 K/mm3 (0.1-0.6); Monocytes Percent Auto 7.3 % (2.6-8.5); Neutrophils Absolute Auto 3.4 K/mm3 (1.3-6.7); Neutrophils Percent Auto 62.6 % (45.5-73.1); Platelet Count Result 261 k/mm3 (150-375); Red Blood Count 4.25 M/mm3 (4.2-5.4); Red Cell Distribution Width 13.7 % (11.5-14.5); White Blood Count 5.4 K/mm3 (4.5-10.0)
[2019-12-13 20:27] LABS: Partial Thromboplastin Time 28.6 SECONDS (22.3-36.8); Prothrombin Time 12.7 Seconds (11.1-14.7)
[2019-12-13 20:29] LABS: Add Urine Microscopic? YES; Appearance Urine Clear (Clear); Bacteria Urine Trace /hpf; Bilirubin Urine Negative (Negative); Blood Urine 2+ (Negative); Color Urine Yellow (Yellow); Glucose Urine UA Negative (Negative); Ketones Urine Negative (Negative); Leukocyte Esterase Ur Negative LEU/UL (Negative); Mucus Urine Few /lpf; Nitrate Urine Negative (Negative); Protein Urine 1+ mg/dL (Negative); RBC Urine 0-2 /hpf (0-2); Specific Grav Ur 1.024 (1.001-1.035); Squamous Epithelial Cell Urine Occasional /hpf (Few); Urobilinogen Urine Negative mg/dL (<2.0); WBC Urine 0-3 /hpf
[2019-12-13 20:30] LABS: D Dimer 0.71 ug/mL (<0.48)
--- NOTE | 2019-12-13 20:44 | PC.NURSE ---
CALL RECEIVED FROM LAB. STATES GREEN TOP NEEDS TO BE REDRAWN. AUTOMATIC BEADING LATHE OPERATOR AT BEDSIDE TO DRAW BLOOD
[2019-12-13] MEDS: ONDANSETRON INJ 4 MG/2 ML VIAL IV PUSH (20:52)
[2019-12-13] MEDS: LACTATED RINGERS 1,000 ML 999 ML IV CONT ×2 (20:52→22:09)
[2019-12-13 20:57] VITALS: BP 111/71; PULSE 60; RESP 20; O2SAT 100
[2019-12-13 21:14] LABS: Alanine Aminotransferase 38 U/L (4-35); Albumin Level 4.7 g/dL (3.5-5.1); Alkaline Phosphatase 81 U/L (38-126); Anion Gap 9 mmol/L (8-16); Aspartate Amino Transferase 54 U/L (14-36); Bilirubin,Total 0.8 mg/dL (0.2-1.3); Blood Urea Nitrogen 7 mg/dL (7-17); Calcium 9.5 mg/dL (8.4-10.2); Carbon Dioxide 27 mmol/L (22-30); Chloride 100 mmol/L (98-107); Estimated CRCL calculation 127 ml/min; Estimated Glomerular Filt Rate > 60; Glucose 92 mg/dL (65-105); Potassium 3.7 mmol/L (3.4-5.0); Sodium 136 mmol/L (137-145)
[2019-12-13 22:10] VITALS: BP 121/71; PULSE 78; RESP 20; O2SAT 100
[2019-12-13 23:05] VITALS: BP 123/88; PULSE 68; RESP 15; O2SAT 97
== END 2019-12-13 23:05 | disposition home or self-care (01) ==
PROVIDERS: Emergency Medicine; Emergency Provider General Practice
DX: R42 Dizziness and giddiness (principal); R94.31 Abnormal electrocardiogram [ECG] [EKG]
CPT/HCPCS: 36415; 71046; 71275; 80053; 81001; 81025; 85025; 85380; 85610; 85730; 93005; 96361; 96374; 99284; J2405; J7120; Q9967

== ENCOUNTER 2020-02-24 10:41 | Emergency (ER) | payer OTHER, SELFPAY ==
[2020-02-24 10:47] VITALS: BP 115/60; PULSE 79; RESP 16; TEMP 35.9; O2SAT 100
--- NOTE | 2020-02-24 11:59 | ED.BACK ---
HPI - Back Pain/Injury General Chief Complaint: Back Pain/Injury Stated Complaint: back pain Time Seen by Provider: 02/24/20 11:32 History of Present Illness HPI Narrative: Right lower back pain for a few days. radiates around to the RLQ and down the back of the right leg. Worse when lying on that side. Better with nothing. She has never had this pain before. No weakness, numbness, dysuria, fever, trauma. Related Data Allergies Allergy/AdvReac Type Severity Reaction Status Date / Time amoxicillin Allergy Unknown Rash Verified 02/24/20 11:34 metoclopramide Allergy Unknown Other Verified 02/24/20 11:34 sulfamethoxazole Allergy Unknown Verified 02/24/20 11:34 [From Bactrim] trimethoprim [From Bactrim] Allergy Unknown Verified 02/24/20 11:34 Review of Systems Review of Systems: All systems reviewed & are unremarkable except as noted in HPI and below Constitutional: Constitutional: Denies chills, Denies fever(s) and Denies weakness Cardiovascular: Cardiovascular: Denies chest pain Respiratory: Respiratory: Denies dyspnea Gastrointestinal: Gastrointestinal: Denies abdominal pain, Denies nausea and Denies vomiting Genitourinary: Genitourinary: Denies hematuria and Denies dysuria Musculoskeletal: Musculoskeletal: Reports back pain Neurologic: Denies dizziness, Denies focal weakness, Denies numbness and Denies weakness PMFSH Past Medical History Medical History Anxiety Depression Lupus Pancreatitis Pulmonary embolism Seizure Surgical History Surgical History History of cholecystectomy Social History Social History Smoking status: Never smoker Alcohol intake: never Substance use: never Gender identity (if verbalized by the patient): Female Exam Const: General: healthy appearing, no acute distress and alert Nutritional Appearance: well nourished Orientation/consciousness: patient oriented x3 HENMT: Head: normal to inspection Resp: Effort & Inspection: normal respiratory effort Auscultation: clear to auscultation bilaterally Cardio: Rate: regular rate Rhythm: regular rhythm GI: GI Palp: Yes Soft to palpation and Yes Tenderness to palpation present (GI) (minimal suprapubic tenderness) Back/Spine/Pelvis: Other: Tenderness in right gluteal muscles. Straight leg raise negative bilaterally Skin: General skin exam: normal color Rashes: no rashes Wounds: no wounds Neuro: General: patient oriented x3, moves all extremities and CN's II-XI intact bilaterally Speech: normal speech Gait exam (Neuro): Normal gait present Other: 5/5 strength throughout Extrem: General: normal to inspection and edema Course Vital Signs Vital signs: Vital Signs Temperature 35.9 C L 02/24/20 10:47 Pulse Rate 79 02/24/20 10:47 Respiratory Rate 16 02/24/20 10:47 Blood Pressure 115/60 02/24/20 10:47 Pulse Oximetry 100 02/24/20 10:47 Temperature 35.9 C L 02/24/20 10:47 Pulse Rate 79 02/24/20 10:47 Respiratory Rate 16 02/24/20 10:47 Blood Pressure 115/60 02/24/20 10:47 Pulse Oximetry 100 02/24/20 10:47 MDM - Back Pain/Injury MDM Narrative Medical decision making narrative: UA negative. Exam benign. I will start symptomatic treatment. Differential Diagnosis Differential diagnosis: Likely sciatica, strain of lumbar region and pyelonephritis Medical Records Attestation: I reviewed the patient's medical records. Lab Data Attestation: I reviewed the patient's lab results. Labs: Lab Results 02/24/20 Range/Units 12:07 Urine Color Yellow (Yellow) Urine Appearance Clear (Clear) Urine pH 6.0 (5.0-9.0) Ur Specific [place] 1.021 (1.001-1.035) Urine Protein 1+ H (Negative) mg/dL Urine Glucose (UA) Negative (Negative) mg/dL Urine Ketones Negative (Negative) mg/dL Ur Blood (Man) Nega
[2020-02-24] MEDS: KETOROLAC (*BKC) 60 MG/2 ML VIAL IM (12:07)
[2020-02-24] MEDS: CYCLOBENZAPRINE HCL 10 MG TABLET PO (12:11)
[2020-02-24 12:21] LABS: Add Urine Microscopic? YES; Appearance Urine Clear (Clear); Bilirubin Urine Negative (Negative); Blood Urine Negative (Negative); Color Urine Yellow (Yellow); Glucose Urine UA Negative (Negative); Ketones Urine Negative (Negative); Leukocyte Esterase Ur Negative LEU/UL (Negative); Mucus Urine Moderate /lpf; Nitrate Urine Negative (Negative); Protein Urine 1+ mg/dL (Negative); RBC Urine 0-2 /hpf (0-2); Specific Grav Ur 1.021 (1.001-1.035); Squamous Epithelial Cell Urine Few /hpf (Few); Urobilinogen Urine Negative mg/dL (<2.0)
--- NOTE | 2020-02-24 14:09 | PC.NURSE ---
pt noted to be angry about lack of testing, explained to pt, that urine has destiny sent for testing. pt angry with dx, it was explained that s/s were typical of provider dx pt angry on dc from emergency room explained to pt what to expect over next couple of weeks TO BE DISCHARGED FROM ED, STABLE AT THIS TIME, AWARE TOF DC INSTRUCTIONS AND FOLLOW UP REQUESTS. HAD ALL QUESTIONS ANSWERED PRIOR TO LEAVING THE ED. UNDERSTANDS ALL PRESCRIBED MEDICATIONS. AMBULATORY OUT OF ED.
== END 2020-02-24 14:01 | disposition home or self-care (01) ==
PROVIDERS: Emergency Provider Emergency Medicine
DX: S39.012A Strain of muscle, fascia and tendon of lower back, initial encounter (principal); Z86.711 Personal history of pulmonary embolism; X58.XXXA Exposure to other specified factors, initial encounter
CPT/HCPCS: 81001; 96372; 99283; A9270; J1885

== ENCOUNTER 2020-04-26 13:03 | Emergency (ER) | payer OTHER, SELFPAY ==
--- NOTE | ~2020-04-26 | US_ITS ---
EXAMINATION: US OB <= 14 weeks fetus DATE: 04/26/2020 13:53 INDICATION: Low back pain during first trimester of . TECHNIQUE: Real-time pelvic ultrasound utilizing both a transvaginal and transabdominal probe was pe rformed. The interpreting radiologist was not present for the study. COMPARISON: None. FINDINGS: The uterus measures 8.0 x 4.1 x 5.6 cm. There is an intrauterine gestational sac. A-2 mm yolk sac is identified but no pole yet apparent. The sac diameter measures 8, which correlates with an est imated gestational age of 5 weeks and 3 days. The right ovary measures 2.2 x 2.7 x 2.3 cm. The left ovary measures 2.2 x 1.7 x 1.2 cm. Symmetric fl ow identified at both ovaries on color Doppler. There is no free fluid in the pelvis. IMPRESSION: 1. Single intrauterine gestational sac with yolk sac but no discernible pole yet apparent likel y due to early stage of . 2. Gestational age by ultrasound of 5 weeks 3 day(s) +/- 3 day(s) with ultrasound estimated date of delivery ([place]) of 12/24/2020. Reviewed, dictated and finalized at location [facility]. [facility] IMPRESSION: 1. Single intrauterine gestational sac with yolk sac but no discernible p ole yet apparent likely due to early stage of . 2. Gestational age by ultrasound of 5 weeks 3 day(s) +/- 3 day(s) with ultraso und estimated date of delivery ([place]) of 12/24/2020.
[2020-04-26 13:11] VITALS: BP 138/76; PULSE 86; RESP 14; TEMP 36.2; O2SAT 100
--- NOTE | 2020-04-26 13:42 | ED.GENADULT ---
HPI - General Adult General Chief complaint: Back Pain/Injury Stated complaint: back pain Time Seen by Provider: 04/26/20 13:21 Source: patient Mode of arrival: ambulatory Limitations: no limitations History of Present Illness HPI narrative: A 29-year-old female comes into the emergency department after referral from a local urgent care center. She states that she went there for low back pain. A test was performed and she was found to be . Patient was referred here for further evaluation secondary to possible ectopic . Patient states that she just found out she was today, notes that her last period was in mid March. She denies any vaginal bleeding or pelvic pain at this time just refers to her low back as a source of her pain. She denies any radiation of this pain. Related Data Allergies Allergy/AdvReac Type Severity Reaction Status Date / Time amoxicillin Allergy Unknown Rash Verified 04/26/20 13:11 metoclopramide Allergy Unknown Other Verified 04/26/20 13:11 sulfamethoxazole Allergy Unknown Verified 04/26/20 13:11 [From Bactrim] trimethoprim [From Bactrim] Allergy Unknown Verified 04/26/20 13:11 Review of Systems Review of Systems: Narrative: CONSTITUTIONAL: Denies fever, chills, or sweats. EYES: Denies visual changes, redness, or discharge. ENT: Denies rhinorrhea, congestion, sore throat, or otalgia. CARDIOVASCULAR: Denies chest pain, palpitations, or edema. RESPIRATORY: Denies cough or dyspnea. GASTROINTESTINAL: Denies abdominal pain, nausea, vomiting, or diarrhea. GENITOURINARY: Denies dysuria or hematuria. SKIN: Denies rash or itching. MUSCULOSKELETAL: Denies joint pain or myalgia. Endorses back pain. NEUROLOGIC: Denies headache, numbness, dizziness, or weakness. PSYCHIATRIC: Denies anxiety or depression. [facility] Past Medical History Medical History Anxiety Depression Lupus Pancreatitis Pulmonary embolism Seizure Surgical History Surgical History History of cholecystectomy (Unknown) Social History Social History Smoking status: Never smoker Alcohol intake: never Substance use: never Gender identity (if verbalized by the patient): Female Exam Narrative: Exam Narrative: GENERAL: Well-appearing, well-nourished, and in no acute distress. HEAD: Normocephalic, atraumatic. EYES: PERRLA and EOMI. ENT: Nares clear, no rhinorrhea or epistaxis. Mucous membranes moist. Oropharynx without tonsillar hypertrophy exudate or other lesions. Bilateral TMs pearly barber nonbulging NECK: Supple. No adenopathy or masses. No carotid bruits or JVD CHEST: Clear to auscultation. No respiratory distress. No wheezes rales or rhonchi HEART: Regular rate and rhythm. No murmur heard. Normal peripheral pulses. ABDOMEN: Soft, nontender, nondistended, normal active bowel sounds. EXTREMITIES: Normal range of motion. No edema. SKIN: Warm, dry, no rash. NEURO: No focal deficits. Alert and oriented x3. PSYCH: Normal mood and affect. Course Reevaluation(s) Reevaluation #1: Patient reevaluated and provided care update. Informed her of her intrauterine, early gestation. No heart tone definitively seen however this is likely due to early gestation. Patient counseled on pelvic rest. Encouraged to use only Tylenol for low back pain and encouraged to stay away from NSAIDs such as ibuprofen or naproxen. Time: 14:46 Vital Signs Vital signs: Vital Signs Temperature 36.2 C L 04/26/20 13:11 Pulse Rate 86 04/26/20 13:11 Respiratory Rate 14 04/26/20 13:11 Blood Pressure 138/76 04/26/20 13:11 Pulse Oximetry 100 04/26/20 13:11 Temperature 36.2 C L 04/26/20 13:11 Pulse Rate 86 04/26/20 13:11 Respiratory Rate 14 04/26/20 13:11 Blood Pressure 138/76 04/26/20 13:11 Pulse Oximetry 100 04/26/20 13:11
[2020-04-26 14:12] LABS: Basophils Percent Auto 0.5 % (0.2-1.2); Eosinophils Absolute Auto 0.1 K/mm3 (0-0.3); Eosinophils Percent Auto 2.6 % (0-4.4); Hematocrit 35.8 % (37.0-47.0); Hemoglobin 12.3 g/dL (12.0-15.0); Immature Granulocyte Absolute 0.02 K/mm3 (0.00-0.031); Immature Granulocyte Percent A 0.5 % (0-0.5); Lymphocytes Absolute Auto 1.43 K/mm3 (0.9-3.2); Lymphocytes Percent Auto 36.5 % (18.3-44.2); Mean Corpuscular HGB Conc 34.4 g/dl (32-36); Mean Corpuscular Hemoglobin 29.1 pg (26-34); Mean Corpuscular Volume 84.8 fl (80-100); Mean Platelet Volume 9.7 fl (7.4-10.4); Monocytes Absolute Auto 0.4 K/mm3 (0.1-0.6); Monocytes Percent Auto 8.9 % (2.6-8.5); Platelet Count Result 214 k/mm3 (150-375); Red Blood Count 4.22 M/mm3 (4.2-5.4); White Blood Count 3.9 K/mm3 (4.5-10.0)
[2020-04-26 14:18] LABS: Add Urine Microscopic? YES; Appearance Urine Clear (Clear); Bacteria Urine Trace /hpf; Bilirubin Urine Negative (Negative); Blood Urine Negative (Negative); Color Urine Yellow (Yellow); Glucose Urine UA Negative (Negative); Ketones Urine Negative (Negative); Leukocyte Esterase Ur Negative LEU/UL (Negative); Mucus Urine Few /lpf; Nitrate Urine Negative (Negative); Protein Urine 2+ mg/dL (Negative); RBC Urine 0-2 /hpf (0-2); Specific Grav Ur 1.025 (1.001-1.035); Squamous Epithelial Cell Urine Few /hpf (Few); Urobilinogen Urine Negative mg/dL (<2.0); WBC Urine 0-3 /hpf
[2020-04-26 14:23] LABS: Platelet Estimate Adequate (Adequate)
[2020-04-26 14:24] LABS: Anion Gap 7 mmol/L (8-16); Atypical Lymphocytes Present; Blood Urea Nitrogen 9 mg/dL (7-17); Calcium 9.3 mg/dL (8.4-10.2); Carbon Dioxide 22 mmol/L (22-30); Chloride 107 mmol/L (98-107); Estimated CRCL calculation 129 ml/min; Estimated Glomerular Filt Rate > 60; Glucose 92 mg/dL (65-105); Potassium 4.2 mmol/L (3.4-5.0); Sodium 136 mmol/L (137-145)
[2020-04-26 14:54] VITALS: BP 128/68; PULSE 84; RESP 14; O2SAT 98
== END 2020-04-26 14:54 | disposition home or self-care (01) ==
PROVIDERS: Emergency Provider Emergency Medicine
DX: O9A.211 Injury, poisoning and certain other consequences of external causes complicating pregnancy, first trimester (principal); S39.012A Strain of muscle, fascia and tendon of lower back, initial encounter; Z86.711 Personal history of pulmonary embolism; Z3A.01 Less than 8 weeks gestation of pregnancy; X58.XXXA Exposure to other specified factors, initial encounter
CPT/HCPCS: 36415; 76801; 80048; 81001; 84702; 85025; 86850; 86880; 86900; 86901; 86902; 99284

== ENCOUNTER 2020-07-09 14:58 | Emergency (ER) | payer OTHER, SELFPAY ==
[2020-07-09] VITALS (12 sets, daily range): BP systolic 116–122; BP diastolic 67–77; PULSE 91–108; RESP 18–36; TEMP 36.8; O2SAT 99–100
--- NOTE | ~2020-07-09 | XR_ITS ---
EXAMINATION: XR chest 2V 07/09/2020 15:24 INDICATION: Midsternal chest pain PROCEDURE: 2 view chest COMPARISON: Comparison to multiple prior studies sequentially, with oldest reviewed study dated 10/02. FINDINGS: The lungs are clear. The cardiomediastinal silhouette is within normal limits. There are no pleural effusions. There is no pneumothorax suspected. IMPRESSION: 1: NO ACUTE CARDIOPULMONARY DISEASE. Reviewed, dictated and finalized at location [facility].
--- NOTE | 2020-07-09 15:10 | ECG_ITS ---
Measurements Intervals [place] Rate: 100 P: 48 CA: 121 QRS: 20 QRSD: 89 T: 5 QT: 352 QTc: 455 Interpretive Statements SINUS TACHYCARDIA NONSPECIFIC T-WAVE ABNORMALITY- ANT/INF LEADS BASELINE ARTIFACT- I, II, III, V4-V6 BORDERLINE ECG Electronically Signed On 07-09-2020 17:17:36 CDT by Rian Mallory D.O.
[2020-07-09 15:18] LABS: Basophils Percent Auto 0.2 % (0.2-1.2); Eosinophils Absolute Auto 0.1 K/mm3 (0-0.3); Eosinophils Percent Auto 2.2 % (0-4.4); Hematocrit 30.4 % (37.0-47.0); Hemoglobin 10.4 g/dL (12.0-15.0); Immature Granulocyte Absolute 0.03 K/mm3 (0.00-0.031); Immature Granulocyte Percent A 0.6 % (0-0.5); Lymphocytes Absolute Auto 1.14 K/mm3 (0.9-3.2); Lymphocytes Percent Auto 23.3 % (18.3-44.2); Mean Corpuscular HGB Conc 34.2 g/dl (32-36); Mean Corpuscular Hemoglobin 29.9 pg (26-34); Mean Corpuscular Volume 87.4 fl (80-100); Mean Platelet Volume 9.6 fl (7.4-10.4); Monocytes Absolute Auto 0.3 K/mm3 (0.1-0.6); Monocytes Percent Auto 5.9 % (2.6-8.5); Neutrophils Absolute Auto 3.3 K/mm3 (1.3-6.7); Neutrophils Percent Auto 67.8 % (45.5-73.1); Platelet Count Result 255 k/mm3 (150-375); Red Blood Count 3.48 M/mm3 (4.2-5.4); White Blood Count 4.9 K/mm3 (4.5-10.0)
[2020-07-09 15:28] LABS: INR 0.9; Prothrombin Time 12.2 Seconds (11.1-14.7)
[2020-07-09 15:29] LABS: Partial Thromboplastin Time 29.6 SECONDS (22.3-36.8)
[2020-07-09 15:35] LABS: Anion Gap 6 mmol/L (8-16); Blood Urea Nitrogen 6 mg/dL (7-17); Calcium 8.7 mg/dL (8.4-10.2); Carbon Dioxide 24 mmol/L (22-30); Chloride 108 mmol/L (98-107); Estimated CRCL calculation 161 ml/min; Estimated Glomerular Filt Rate > 60; Glucose 90 mg/dL (65-105); Potassium 3.5 mmol/L (3.4-5.0); Sodium 138 mmol/L (137-145)
[2020-07-09 15:47] LABS: Troponin I < 0.012 ng/mL (0.000-0.034)
--- NOTE | 2020-07-09 15:48 | ED.CHESTPAIN ---
HPI - Chest Pain General Chief Complaint: Chest Pain Stated Complaint: Chest Pain Time Seen by Provider: 07/09/20 15:16 Source: patient and family Limitations: no limitations History of Present Illness HPI narrative: Patient is 30 years old white female with 2-hour ago with sharp pain across the chest, worse with deep breathing and certain movement, better if she remaining still. Patient did not take any pain medication since. Patient is 16 weeks , history of systemic lupus, and pulmonary embolism 2012, stopped blood thinner at 2014, started on Lovenox once a day for the last 12 weeks. History of seizure. Patient does not smoke or drink, uses marijuana occasionally. 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[facility] [employer] Related Data Home Medications Medication Instructions Recorded Confirmed enoxaparin 07/09/20 21-iron fu-folic acid tablet PO 07/09/20 [ Complete] sertraline mg 07/09/20 Allergies Allergy/AdvReac Type Severity Reaction Status Date / Time amoxicillin Allergy Unknown Rash Verified 07/09/20 15:10 metoclopramide Allergy Unknown Other Verified 07/09/20 15:10 sulfamethoxazole Allergy Unknown Verified 07/09/20 15:10 [From Bactrim] trimethoprim [From Bactrim] Allergy Unknown Verified 07/09/20 15:10 Review of Systems Review of Systems: Narrative: CONSTITUTIONAL: Denies fever, chills, or sweats. EYES: Denies visual changes, redness, or discharge. ENT: Denies rhinorrhea, congestion, sore throat, or otalgia. CARDIOVASCULAR: Denies chest pain, palpitations, or edema. RESPIRATORY: Denies cough or dyspnea. GASTROINTESTINAL: Denies abdominal pain, nausea, vomiting, or diarrhea. GENITOURINARY: Denies dysuria or hematuria. SKIN: Denies rash or itching. MUSCULOSKELETAL: Denies back pain, joint pain, or myalgia. NEUROLOGIC: Denies headache, numbness, or weakness. PSYCHIATRIC: Denies anxiety or depression. [facility] Past Medical History Medical History Anxiety Depression Lupus Pancreatitis Pulmonary embolism Seizure Surgical History Surgical History History of cholecystectomy (Unknown) Social History Social History Smoking status: Never smoker Alcohol intake: never Substance use: never Gender identity (if verbalized by the patient): Female Exam Narrative: Exam Narrative: General appearance: Well-developed, well-nourished Skin: Normal color Head: Normocephalic, nontraumatic Eyes: Clear conjunctiva ENT: Oropharynx normal, ears normal, nose normal Neck: Supple, nontender Chest and respiratory: Airway patent, no respiratory distress, no accessory muscle use, diffuse tenderness across the chest with light palpation, no bruises, no rash Heart: Regular rate/rhythm Abdomen: Soft, nontender, no organomegaly, quiet bowel sounds Vascular: Normal peripheral pulses, normal capillary refill. Musculoskeletal: Normal range of motion, nontender back Neurologic: Alert and oriented ?3, WHARFINGER CHIEF is normal as tested, no gross motor deficit Course Course Emergency Course: Stable Consultations Consultation #1: DR BEE. Transferred to [facility], women evaluation unit. Date: 07/09/20 Time: 18:05 Vital Signs Vital signs: Vital Signs Temperature 36.8 C 07/09/20 15:16 Pulse Rate 98 07/09/20 15:16 Respiratory Rate 28 H 07/09/20 15:16 Blood Pressure 118/74 07/09/20 15:16 Pulse Oximetry 100 07/09/20 15:16 Temperature 36.8 C 07/09/20 15:16 Pulse Rate 98 07/09/20 15:19 Respiratory Rate 28 H 07/09/20 1
[2020-07-09 16:46] LABS: CRP 0.9 mg/dL (<1.0)
[2020-07-09 16:47] LABS: Erythrocyte Sedimentation Rate 82 mm/hr (0-20)
[2020-07-09] MEDS: MORPHINE SULFATE (*CRX) 4 MG/ML INJ IV PUSH (18:35)
[2020-07-09] MEDS: ONDANSETRON INJ 4 MG/2 ML VIAL IV PUSH (18:35)
[2020-07-09] MEDS: ENOXAPARIN 80 MG/0.8 ML SYRINGE SUB-Q (18:35)
--- NOTE | 2020-07-09 19:15 | PC.NURSE ---
[facility] has arrived
--- NOTE | 2020-07-09 19:25 | PC.NURSE ---
To [place] via [facility].
[2020-07-09 19:29] LABS: Troponin I < 0.012 ng/mL (0.000-0.034)
== END 2020-07-09 19:28 | disposition short-term general hospital (02) ==
PROVIDERS: Emergency Provider Emergency Medicine
DX: O26.892 Other specified pregnancy related conditions, second trimester (principal); R07.9 Chest pain, unspecified; O99.891 Other specified diseases and conditions complicating pregnancy; M32.9 Systemic lupus erythematosus, unspecified; Z87.11 Personal history of peptic ulcer disease; F41.9 Anxiety disorder, unspecified; F32.9 Major depressive disorder, single episode, unspecified; O99.342 Other mental disorders complicating pregnancy, second trimester; Z3A.16 16 weeks gestation of pregnancy; R00.0 Tachycardia, unspecified; R94.31 Abnormal electrocardiogram [ECG] [EKG]
CPT/HCPCS: 36415; 71046; 80048; 84484; 85025; 85610; 85652; 85730; 86140; 93005; 96372; 96374; 96375; 99285; J1650; J2270; J2405

== ENCOUNTER 2020-11-14 12:20 | Emergency (ER) | payer OTHER, SELFPAY ==
--- NOTE | ~2020-11-14 | US_ITS ---
EXAMINATION: US venous doppler UE RT DATE: 11/14/2020 14:35 INDICATION: Right upper limb swelling and pain. TECHNIQUE: Grayscale ultrasound images without and with compression and Doppler ultrasound images of the right upper extremity veins were obtained. COMPARISON: None. FINDINGS: The visualized portions of the right internal jugular vein, subclavian vein, axillary vein, brachial veins, basilic vein, radial vein, and ulnar vein are patent. There is thrombus in right cephalic vein . IMPRESSION: 1. No deep venous thrombosis. 2. Thrombus in right cephalic vein, which is a superficial vein. Reviewed, dictated and finalized at location A.
--- NOTE | ~2020-11-14 | XR_ITS ---
EXAMINATION: XR chest 1V DATE: 11/14/2020 14:47 INDICATION: Chest pain. TECHNIQUE: A single frontal view of the chest was obtained. COMPARISON: Chest 2 views 07/09/2020, chest CT 12/13/2019 FINDINGS: The chest demonstrates clear lungs without pneumonia, pleural effusion, or pneumothorax. Th e heart size is normal. IMPRESSION: 1. No acute cardiopulmonary disease. Reviewed, dictated and finalized at location A.
[2020-11-14 12:22] VITALS: BP 127/62; PULSE 120; RESP 20; TEMP 37; O2SAT 100
[2020-11-14 13:38] VITALS: BP 118/76; PULSE 112; RESP 18; TEMP 36.4; O2SAT 99
--- NOTE | 2020-11-14 14:09 | ECG_ITS ---
Measurements Intervals [place] Rate: 106 P: 48 UT: 170 QRS: 29 QRSD: 94 T: -5 QT: 350 QTc: 465 Interpretive Statements SINUS TACHYCARDIA BORDERLINE ST-T WAVE ABNORMALITY- ANTEROLAT/INF LEADS BASELINE ARTIFACT- V3-V4 ABNORMAL ECG Electronically Signed On 11-14-2020 16:55:58 CDT by Rian Mallory D.O.
--- NOTE | 2020-11-14 14:12 | ED.GENADULT ---
HPI - General Adult General Chief complaint: Extremity Injury, Upper Stated complaint: RIGHT WRIST SWELLING Time Seen by Provider: 11/14/20 12:51 Source: patient Mode of arrival: ambulatory Limitations: no limitations History of Present Illness HPI narrative: Patient presents for evaluation of swelling and redness to the right forearm. She noted some redness in the affected area last evening. Today she woke from sleep and noticed progressively worsening swelling in the affected area. She has a history of a PE in 2012 at which time she was anticoagulated. She states she is currently , 34 weeks gestation. She is under the management of high risk group at [facility]. During her previous she was placed on Lovenox therapy. She has been on 40 mg of Lovenox subcutaneously daily during this . On Monday of this week she experienced some contractions so went to the women's evaluation center at [place]. She was monitored there and her Lovenox was switched to heparin as previously planned for the end of her . Unfortunately, patient has not been able to administer heparin since Monday of this week as the pharmacy did not have syringes available for her. Of note, she reports sternal chest pain as of today, still present. She also has some shortness of breath but is unable to discern whether this is related to her . She also indicates that she had an IV placed in the area of the swelling and redness Related Data Home Medications Medication Instructions Recorded Confirmed 21-iron fu-folic acid tablet PO 07/09/20 [ Complete] sertraline mg 07/09/20 heparin (porcine) 11/14/20 prochlorperazine maleate 11/14/20 Allergies Allergy/AdvReac Type Severity Reaction Status Date / Time amoxicillin Allergy Severe Hives Verified 11/14/20 13:48 metoclopramide Allergy Severe Other Verified 11/14/20 13:48 sulfamethoxazole Allergy Severe Confusion Verified 11/14/20 13:48 [From Bactrim] trimethoprim [From Bactrim] Allergy Severe Confusion Verified 11/14/20 13:48 iron AdvReac Severe Vomiting Verified 11/14/20 13:48 Review of Systems Review of Systems: CONSTITUTIONAL: Denies fever, chills, or sweats. EYES: Denies visual changes, redness, or discharge. ENT: Denies rhinorrhea, congestion, sore throat, or otalgia. CARDIOVASCULAR: Reports chest pain. Denies palpitations RESPIRATORY: Reports SOB. Denies cough GASTROINTESTINAL: Denies abdominal pain, nausea, vomiting, or diarrhea. GENITOURINARY: Denies dysuria or hematuria. SKIN: Reports redness to right forearm MUSCULOSKELETAL: Reports swelling and pain in right forerm. Denies back pain NEUROLOGIC: Denies headache, numbness, dizziness, or weakness. PSYCHIATRIC: Denies anxiety or depression. [facility] Past Medical History Medical History Anxiety Depression Lupus Pancreatitis Pulmonary embolism Seizure Surgical History Surgical History History of cholecystectomy (Unknown) Family History Family History Grandparent DVT (deep venous thrombosis) Social History Social History Smoking status: Never smoker Alcohol intake: never Substance use: never Gender identity (if verbalized by the patient): Female Sexual Orientation (if Verbalized by the Patient): Straight or Heterosexual Spiritual care concerns: No Exam Narrative: GENERAL: Well-appearing, well-nourished, and in no acute distress. HEAD: Normocephalic, atraumatic. EYES: PERRLA and EOMI. ENT: Nares clear, no rhinorrhea or epistaxis. Mucous membranes moist. Oropharynx without tonsillar hypertrophy exudate or other lesions. Bilateral TMs pearly barber nonbulging NECK: Supple. No adenopathy or masses. No carotid brui
[2020-11-14 15:31] LABS: Hematocrit 29.9 % (37.0-47.0); Hemoglobin 9.5 g/dL (12.0-15.0); Mean Corpuscular HGB Conc 31.8 g/dl (32-36); Mean Corpuscular Hemoglobin 27.6 pg (26-34); Mean Corpuscular Volume 86.9 fl (80-100); Mean Platelet Volume 9.7 fl (7.4-10.4); Platelet Count Result 235 k/mm3 (150-375); Red Blood Count 3.44 M/mm3 (4.2-5.4); Red Cell Distribution Width 18.3 % (11.5-14.5); White Blood Count 7.3 K/mm3 (4.5-10.0)
[2020-11-14 15:41] LABS: INR 0.9; Prothrombin Time 11.9 Seconds (11.1-14.7)
[2020-11-14 15:42] LABS: Partial Thromboplastin Time 28.4 SECONDS (22.3-36.8)
[2020-11-14 15:43] LABS: Alanine Aminotransferase 25 U/L (4-35); Albumin Level 3.2 g/dL (3.5-5.1); Alkaline Phosphatase 93 U/L (38-126); Anion Gap 8 mmol/L (8-16); Aspartate Amino Transferase 61 U/L (14-36); Bilirubin,Total 0.4 mg/dL (0.2-1.3); Blood Urea Nitrogen 3 mg/dL (7-17); Calcium 8.4 mg/dL (8.4-10.2); Carbon Dioxide 17 mmol/L (22-30); Chloride 107 mmol/L (98-107); Estimated CRCL calculation 153 ml/min; Estimated Glomerular Filt Rate > 60; Glucose 82 mg/dL (65-110); Potassium 3.5 mmol/L (3.4-5.0); Sodium 132 mmol/L (137-145)
[2020-11-14 15:46] LABS: Band Neutrophils Percent 12 % (0-6); Lymphocytes Absolute Manual 0.65 K/mm3 (1.1-4.5); Monocytes Absolute Manual 0.43 K/mm3 (0.1-0.90); Monocytes Percent Manual 6 % (3-9); Neutrophils Percent Manual 73 % (46-73); Platelet Estimate Adequate (Adequate); Total Cells Counted 100
--- NOTE | 2020-11-14 15:50 | PC.NURSE ---
OB RN finished non-stress test, reports that baby did well. No contractions noted.
[2020-11-14 15:54] LABS: Troponin I < 0.012 ng/mL (0.000-0.034)
[2020-11-14 17:06] VITALS: BP 114/70; PULSE 100; RESP 18; O2SAT 97
== END 2020-11-14 17:08 | disposition home or self-care (01) ==
PROVIDERS: Emergency Provider Nurse Practitioner
DX: O99.413 Diseases of the circulatory system complicating pregnancy, third trimester (principal); I82.611 Acute embolism and thrombosis of superficial veins of right upper extremity; Z86.711 Personal history of pulmonary embolism; O99.343 Other mental disorders complicating pregnancy, third trimester; F41.9 Anxiety disorder, unspecified; F32.9 Major depressive disorder, single episode, unspecified; R00.0 Tachycardia, unspecified; R94.31 Abnormal electrocardiogram [ECG] [EKG]; Z3A.34 34 weeks gestation of pregnancy
CPT/HCPCS: 36415; 71045; 80053; 84484; 85025; 85610; 85730; 93005; 93971; 99284

== ENCOUNTER 2020-12-12 15:00 | Emergency (ER) | payer OTHER, SELFPAY ==
[2020-12-12 15:04] VITALS: BP 118/69; PULSE 92; RESP 18; TEMP 37; O2SAT 100
--- NOTE | 2020-12-12 16:43 | PC.NURSE ---
patient states that the wait is too long and stated she was leaving
== END 2020-12-12 16:43 | disposition left against medical advice (07) ==
LOC: ANHED 16:54
DX: R10.9 Unspecified abdominal pain (principal)
CPT/HCPCS: 99199

== ENCOUNTER 2021-03-19 14:40 | Emergency (ER) | payer OTHER, SELFPAY ==
--- NOTE | ~2021-03-19 | CT_ITS ---
EXAMINATION: CT abdomen pelvis w con EXAM DATE: 03/19/2021 17:22 INDICATION: L abd pain . TECHNIQUE: Spiral CT of the abdomen and pelvis was performed following intravenous injection of 100 m L Omnipaque 350. Axial, coronal and sagittal images of the abdomen and pelvis were reviewed. The do se-length product (DLP) for this examination was 361.13 mGy-cm. The exposure was tailored according to patient size (auto mA exposure control), and iterative reconstruction (ASIR) was used as additiona l dose reduction technique. Comparison is made to prior examination from 11/27/2019. FINDINGS: The liver, spleen, adrenal glands and pancreas are unremarkable. Gallbladder not identifie d, patient likely has had cholecystectomy. Portal and splenic veins are patent. Kidneys enhance sym metrically. There is no hydronephrosis. Multiple renal cysts, and hypodensities which are too small to characterize by CT but statistically most likely cysts. The uterus is anteverted and morphologica lly normal. The bladder is unremarkable. There is no retroperitoneal or pelvic lymphadenopathy. Probable section scar. The appendix is normal. The stomach and small bowel are unremarkable. There is expected amount of c olonic stool. No free intraperitoneal gas. The heart is normal in size. There are no pericardial or pleural effusions. Several bibasilar nodules unchanged, granulomata. There are no osteoblastic or osteolytic lesions identified. IVC filter. IMPRESSION: 1. No acute intra-abdominal findings. Reviewed, dictated and finalized at location A. F STOCKER
[2021-03-19 15:07] VITALS: BP 102/63; PULSE 88; RESP 18; TEMP 36.6; O2SAT 99
--- NOTE | 2021-03-19 15:55 | ED.BACK ---
HPI - Back Pain/Injury General Chief Complaint: Back Pain/Injury Stated Complaint: flank pain Time Seen by Provider: 03/19/21 15:42 Source: RN notes reviewed History of Present Illness HPI Narrative: Patient presents emergency department from home for right flank pain. Patient states the pain began approximately 3 weeks ago and was initially intermittent but has become more consistent over the past several days the pain radiates around to the right side the abdomen is described as sharp and stabbing. She denies fever chills chest pain, shortness of breath nausea vomiting diarrhea or any other symptoms. States she took Tylenol at home this morning with minimal relief Related Data Home Medications Medication Instructions Recorded Confirmed 21-iron fu-folic acid tablet PO 07/09/20 [ Complete] sertraline mg 07/09/20 heparin (porcine) 11/14/20 prochlorperazine maleate 11/14/20 Allergies Allergy/AdvReac Type Severity Reaction Status Date / Time amoxicillin Allergy Severe Hives Verified 11/14/20 13:48 metoclopramide Allergy Severe Other Verified 11/14/20 13:48 sulfamethoxazole Allergy Severe Confusion Verified 11/14/20 13:48 [From Bactrim] trimethoprim [From Bactrim] Allergy Severe Confusion Verified 11/14/20 13:48 iron AdvReac Severe Vomiting Verified 11/14/20 13:48 Review of Systems Review of Systems: Gen.: Denies fevers or chills ENT: Denies congestion Respiratory: Denies shortness of breath or cough CV: Denies chest pain or palpitations GI: See HPI denies burning, urgency, frequency or hematuria Musculoskeletal: Denies back pain or muscle pain Neuro: Denies numbness, tingling, weakness or focal weakness Skin: Denies rash Except as documented, all other systems reviewed and negative PMF Past Medical History Medical History Anxiety Depression Lupus Pancreatitis Pulmonary embolism Seizure Surgical History Surgical History History of cholecystectomy (Unknown) Family History Family History Grandparent DVT (deep venous thrombosis) Social History Social History Smoking status: Never smoker Alcohol intake: never Substance use: never Gender identity (if verbalized by the patient): Female Sexual Orientation (if Verbalized by the Patient): Straight or Heterosexual Spiritual care concerns: No Exam Narrative: APPEARANCE: No acute distress, nontoxic, resting in bed HEENT: Normocephalic, atraumatic, OMM RESPIRATORY: No respiratory distress, clear to auscultation bilaterally with no rhonchi wheezing or rales CARDIOVASCULAR: RRR s murmur ABDOMINAL: Soft nondistended tender palpation right quadrant right lower quadrant no tenderness in left lower quadrant left lower quadrant no rebound or guarding MUSCULOSKELETAl: Moves all extremities. No clubbing, cyanosis or edema. NEURO: Awake and alert. Following commands, speech normal, no focal deficits SKIN:: Warm, dry. Normal Color PSYCHIATRIC: Normal affect/mood Course Course Emergency Course: Patient states that they are feeling much better at this time. States abdominal pain has improved repeat abdominal exam shows the patient's abdomen to be soft with no surgical abdomen present discussed with patient results of workup and diagnosis. Discussed need for follow-up with primary care physician, reasons to return to the emergency department in proper use of medication. Patient understands and agrees to current treatment plan Vital Signs Vital signs: Vital Signs Temperature 98 F 03/19/21 15:07 Pulse Rate 88 03/19/21 15:07 Respiratory Rate 18 03/19/21 15:07 Blood Pressure 102/63 03/19/21 15:07 Pulse Oximetry 99 03/19/21 15:07 Temperature 98 F 03/19/21 16:47 Pulse Rate 88 03/10
[2021-03-19 16:02] LABS: Basophils Percent Auto 0.5 % (0.2-1.2); Eosinophils Absolute Auto 0.2 K/mm3 (0-0.3); Eosinophils Percent Auto 3.7 % (0-4.4); Hematocrit 35.1 % (37.0-47.0); Hemoglobin 11.9 g/dL (12.0-15.0); Immature Granulocyte Absolute 0.01 K/mm3 (0.00-0.031); Immature Granulocyte Percent A 0.2 % (0-0.5); Lymphocytes Absolute Auto 1.45 K/mm3 (0.9-3.2); Lymphocytes Percent Auto 35.5 % (18.3-44.2); Mean Corpuscular HGB Conc 33.9 g/dl (32-36); Mean Corpuscular Hemoglobin 29.5 pg (26-34); Mean Corpuscular Volume 87.1 fl (80-100); Mean Platelet Volume 9.4 fl (7.4-10.4); Monocytes Absolute Auto 0.3 K/mm3 (0.1-0.6); Monocytes Percent Auto 8.1 % (2.6-8.5); Neutrophils Absolute Auto 2.1 K/mm3 (1.3-6.7); Platelet Count Result 299 k/mm3 (150-375); Red Blood Count 4.03 M/mm3 (4.2-5.4); Red Cell Distribution Width 13.2 % (11.5-14.5); White Blood Count 4.1 K/mm3 (4.5-10.0)
[2021-03-19] MEDS: KETOROLAC 30 MG/ML VIAL (*BKC) IV PUSH (16:17)
[2021-03-19] MEDS: SODIUM CHLORIDE 0.9% IV 1,000 ML 999 ML IV CONT (16:17)
[2021-03-19 16:21] LABS: Add Urine Microscopic? NO; Appearance Urine Clear (Clear); Bilirubin Urine Negative (Negative); Blood Urine Negative (Negative); Color Urine Yellow (Yellow); Glucose Urine UA Negative (Negative); Ketones Urine Negative (Negative); Leukocyte Esterase Ur Negative LEU/UL (Negative); Nitrate Urine Negative (Negative); Protein Urine Negative (Negative); Specific Grav Ur 1.019 (1.001-1.035); Urobilinogen Urine Negative mg/dL (<2.0)
[2021-03-19 16:47] VITALS: TEMP 36.6
[2021-03-19 17:06] LABS: Alanine Aminotransferase 34 U/L (4-35); Albumin Level 4.5 g/dL (3.5-5.1); Alkaline Phosphatase 85 U/L (38-126); Anion Gap 10 mmol/L (8-16); Aspartate Amino Transferase 35 U/L (14-36); Bilirubin,Total 0.4 mg/dL (0.2-1.3); Blood Urea Nitrogen 10 mg/dL (7-17); Calcium 9.1 mg/dL (8.4-10.2); Carbon Dioxide 22 mmol/L (22-30); Chloride 102 mmol/L (98-107); Estimated CRCL calculation 101 ml/min; Estimated Glomerular Filt Rate > 60; Glucose 85 mg/dL (65-110); Lipase 53 U/L (23-300); Potassium 3.6 mmol/L (3.4-5.0); Sodium 134 mmol/L (137-145)
--- NOTE | 2021-03-19 17:13 | PC.NURSE ---
Patient to radiology.
[2021-03-19 18:24] VITALS: BP 119/83; PULSE 82; RESP 18; O2SAT 98
== END 2021-03-19 18:52 | disposition home or self-care (01) ==
PROVIDERS: Emergency Provider Emergency Medicine
DX: R10.31 Right lower quadrant pain (principal); F41.9 Anxiety disorder, unspecified; F32.A Depression, unspecified; Z86.711 Personal history of pulmonary embolism
CPT/HCPCS: 36415; 74177; 80053; 81003; 81025; 83690; 85025; 96361; 96374; 99284; J1885; J7030; Q9967

== ENCOUNTER 2021-07-26 22:26 | Emergency (ER) | payer OTHER, SELFPAY ==
[2021-07-26 22:28] VITALS: BP 137/95; PULSE 75; RESP 19; TEMP 36.6; O2SAT 98
--- NOTE | 2021-07-26 23:06 | ED.BACK ---
HPI - Back Pain/Injury General Chief Complaint: Back Pain/Injury Stated Complaint: right lower back pain Time Seen by Provider: 07/26/21 22:47 Source: patient and RN notes reviewed Mode of arrival: ambulatory Limitations: no limitations History of Present Illness HPI Narrative: 31-year-old female with history of kidney stones presenting to the emerge department for evaluation of lower back pain. Patient states over the last 2 days she has had worsening lower back pain. Patient has been taking Tylenol and ibuprofen for this with no significant improvement. 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 Patient denies any falls or injuries. Patient denies any eliciting event. Patient reports bilateral low back pain that does not radiate to her legs. Patient denies any associated nausea or vomiting. Patient denies any pain with urination. Patient denies any abdominal pain. Patient denies any loss of bowel or bladder control. Patient is tearful upon arrival to the ED secondary to her back pain. Related Data Home Medications Medication Instructions Recorded Confirmed 21-iron fu-folic acid tablet PO 07/09/20 [ Complete] sertraline mg 07/09/20 heparin (porcine) 11/14/20 prochlorperazine maleate 11/14/20 Allergies Allergy/AdvReac Type Severity Reaction Status Date / Time amoxicillin Allergy Severe Hives Verified 07/26/21 22:27 metoclopramide Allergy Severe Other Verified 07/26/21 22:27 sulfamethoxazole Allergy Severe Confusion Verified 07/26/21 22:27 [From Bactrim] trimethoprim [From Bactrim] Allergy Severe Confusion Verified 07/26/21 22:27 iron AdvReac Severe Vomiting Verified 07/26/21 22:27 Review of Systems Review of Systems: CONSTITUTIONAL: Denies fever, chills, or sweats. EYES: Denies visual changes, redness, or discharge. ENT: Denies rhinorrhea, congestion, sore throat, or otalgia. CARDIOVASCULAR: Denies chest pain, palpitations, or edema. RESPIRATORY: Denies cough or dyspnea. GASTROINTESTINAL: Denies abdominal pain, nausea, vomiting, or diarrhea. GENITOURINARY: Denies dysuria or hematuria. SKIN: Denies rash or itching. MUSCULOSKELETAL: Back pain NEUROLOGIC: Denies headache, numbness, or weakness. [facility] Past Medical History Medical History Anxiety Depression Lupus Pancreatitis Pulmonary embolism Seizure Surgical History Surgical History History of cholecystectomy (Unknown) Family History Family History Grandparent DVT (deep venous thrombosis) Social History Social History Smoking status: Never smoker Alcohol intake: never Substance use: never Gender identity (if verbalized by the patient): Female Sexual Orientation (if Verbalized by the Patient): Straight or Heterosexual Spiritual care concerns: No Exam Narrative: APPEARANCE: Tearful HEAD: normocephalic, atraumatic. EYES: PERRLA/EOMI, conjunctivae clear. NECK: Supple. No adenopathy, no masses. RESPIRATORY: Airway patent, respirations nonlabored. Clear to auscultation bilaterally, no rales, rhonchi, wheezing. CARDIOVASCULAR: Regular rate and rhythm without murmurs rubs or gallops. ABDOMINAL: Soft, nontender, nondistended, normal bowel sounds MUSCULOSKELETAL: Paraspinal muscle tenderness to palpation. No midline deformity or step-offs. No ecchymosis. NEURO: Alert. Cranial nerves II through XII intact. Grossly intact. SKIN: Warm, dry. Normal Color Course Course Emergency Course: Patient did have some improvement with her pain with the medications. No blood in her urine, return for ureteral calculi as the cause of her pain. Patient was educated on pain control at home. All questions concerns were addressed. Patient was comfortable with the plan for discharge and close follow-up.
[2021-07-26] MEDS: CYCLOBENZAPRINE HCL 10 MG TABLET PO (23:44)
[2021-07-26] MEDS: HYDROcodone/acetaminophen (*CRX) 5-325 MG TABLET 1 TAB PO (23:44)
[2021-07-27 00:16] LABS: Appearance Urine Slightly Cloudy (Clear); Bilirubin Urine 1+ (Negative); Color Urine Yellow (Yellow); Glucose Urine UA Negative (Negative); Ketones Urine Trace mg/dL (Negative); Leukocyte Esterase Ur Negative LEU/UL (Negative); Nitrate Urine Negative (Negative); Protein Urine 2+ mg/dL (Negative); Specific Grav Ur >= 1.030 (1.001-1.035); Urobilinogen Urine 0.2 mg/dL (<2.0); pH Urine 5.5 (5.0-9.0)
[2021-07-27 00:19] LABS: Bacteria Urine Trace /hpf; Mucus Urine Moderate /lpf; RBC Urine 0-2 /hpf (0-2); Squamous Epithelial Cell Urine Few /hpf (Few)
[2021-07-27 00:23] LABS: Add Urine Microscopic? YES; Blood Urine Trace (Negative)
[2021-07-27 01:30] VITALS: BP 123/88; PULSE 96; RESP 18; O2SAT 98
== END 2021-07-27 01:30 | disposition home or self-care (01) ==
PROVIDERS: Emergency Provider Emergency Medicine
DX: M54.50 Low back pain, unspecified (principal); F41.9 Anxiety disorder, unspecified; F32.A Depression, unspecified; Z87.442 Personal history of urinary calculi; Z86.711 Personal history of pulmonary embolism
CPT/HCPCS: 81001; 81025; 99283; A9270

== ENCOUNTER 2021-12-22 15:51 | Emergency (ER) | payer OTHER, SELFPAY ==
[2021-12-22 16:00] VITALS: BP 97/60; PULSE 99; RESP 16; TEMP 36.2; O2SAT 100
--- NOTE | 2021-12-22 17:31 | ED.FEMALEGU ---
HPI - Female Genitourinary General Chief complaint: Urogenital-Female Stated complaint: uti Time Seen by Provider: 12/22/21 16:30 Source: patient, RN notes reviewed and old records reviewed Mode of arrival: ambulatory Limitations: no limitations History of Present Illness HPI Narrative: 31-year-old female who presents to express care with complaints of 2 day history of burning with urination, painful urination with some back pain. Patient denies any fevers, chills or sweats. Patient has history of Lupus and is followed at [facility] by Dr Varma. Patient also is requesting test. MD elicited complaint: dysuria and UTI Pertinent past history: other (UTI's) Onset (ago): day(s) (2) Related Data Home Medications Medication Instructions Recorded Confirmed aripiprazole 5 mg tablet 5 mg PO DIRECTED 12/22/21 12/22/21 azathioprine 50 mg tablet 50 mg PO DIRECTED 12/22/21 12/22/21 buspirone 5 mg tablet 5 mg PO DAILY 12/22/21 12/22/21 dextroamphetamine-amphetamine ER 30 mg PO DAILY 12/22/21 12/22/21 30 mg 24hr capsule,extend release hydroxychloroquine 200 mg tablet 200 mg PO DIRECTED 12/22/21 12/22/21 Allergies Allergy/AdvReac Type Severity Reaction Status Date / Time amoxicillin Allergy Severe Hives Verified 07/26/21 22:27 metoclopramide Allergy Severe Other Verified 07/26/21 22:27 sulfamethoxazole Allergy Severe Confusion Verified 07/26/21 22:27 [From Bactrim] trimethoprim [From Bactrim] Allergy Severe Confusion Verified 07/26/21 22:27 iron AdvReac Severe Vomiting Verified 07/26/21 22:27 Review of Systems Review of Systems: CONSTITUTIONAL: Denies fever, chills, or sweats. EYES: Denies visual changes, redness, or discharge. ENT: Denies rhinorrhea, congestion, sore throat, or otalgia. CARDIOVASCULAR: Denies chest pain, palpitations, or edema. RESPIRATORY: Denies cough or dyspnea. GASTROINTESTINAL: Denies abdominal pain, nausea, vomiting, or diarrhea. GENITOURINARY: positive for dysuria no visible hematuria. SKIN: Denies rash or itching. MUSCULOSKELETAL: Denies back pain, joint pain, or myalgia, positive for CVA tenderness ilaterally NEUROLOGIC: Denies headache, numbness, or weakness. PSYCHIATRIC: positive for history of anxiety or depression. All systems reviewed & are unremarkable except as noted in HPI and below PMFSH Past Medical History Medical History (Updated 12/23/21 @ 00:00 by Jaun Tony) Anxiety Depression Lupus Pancreatitis Pulmonary embolism Seizure Surgical History Surgical History (Updated 12/24/21 @ 15:44 by Milka Olguin NP) History of cholecystectomy (Unknown) Previous section Family History Family History Grandparent DVT (deep venous thrombosis) Social History Social History Smoking status: Never smoker Alcohol intake: never Substance use: never Gender identity (if verbalized by the patient): Female Sexual Orientation (if Verbalized by the Patient): Straight or Heterosexual Spiritual care concerns: No Comments At time of signature, agree with nursing past medical, surgical, social and family history. There is no relevant family history pertinent to the presenting complaint Exam Narrative: GENERAL: Well-appearing, well-nourished, and in no acute distress. HEAD: Normocephalic, atraumatic. EYES: PERRLA and EOMI. ENT: Nares clear, no rhinorrhea or epistaxis. Mucous membranes moist.TM's normal with good light reflex, throat pink with no lesions or exudates or tonsil swelling. NECK: Supple.no lymphadenopathy CHEST: Clear to auscultation. No respiratory distress.SAO2 100% on room air HEART: Regular rate and rhythm. No murmur heard. Normal peripheral pulses. ABDOMEN: Soft, perineal tenderness, no abdominal pain, nondistended, normal active bowel sounds.positive for CVA tenderness EXTREMITIES: Normal range of motion. No edema. SKIN: Warm,
== END 2021-12-22 17:51 | disposition home or self-care (01) ==
PROVIDERS: Emergency Provider Registered Nurse
DX: O23.40 Unspecified infection of urinary tract in pregnancy, unspecified trimester (principal); N39.0 Urinary tract infection, site not specified; Z3A.00 Weeks of gestation of pregnancy not specified; O99.891 Other specified diseases and conditions complicating pregnancy; M32.9 Systemic lupus erythematosus, unspecified; O99.340 Other mental disorders complicating pregnancy, unspecified trimester; F41.9 Anxiety disorder, unspecified
CPT/HCPCS: 81003; 81025; 87086; 99213; G0463

== ENCOUNTER 2022-05-12 09:16 | Emergency (ER) | payer OTHER, SELFPAY ==
[2022-05-12 09:26] VITALS: BP 122/87; PULSE 72; RESP 16; TEMP 36.6; O2SAT 100
--- NOTE | 2022-05-12 09:46 | ED.FEMALEGU ---
HPI - Female Genitourinary General Chief complaint: Urogenital-Female Stated complaint: back pain Time Seen by Provider: 05/12/22 09:46 Source: patient, RN notes reviewed and old records reviewed Mode of arrival: ambulatory Limitations: no limitations History of Present Illness HPI Narrative: 31-year-old female who presents to [facility] Care with complaints of lower back pain for about 3 weeks with some burning with urination and also some white vaginal discharge. Patient reports that she has history of kidney stones and also UTI's. Patient reports that she had kidney stone in April and was seen at [facility] and she passed it. Patient reports that she had urine and labs [facility] and she had no blood in her urine shown on her labs. Patient has history of Lupus and sees specialist at [facility] Dr Varma for her Lupus which patient states was diagnosed when she was 16 years old.Information about STD testing reviewed with patient and she wishes to go to facility where she can get comprehensive testing done states no unprotected intercourse since January but was told by previous partner of possible chlamydia. MD elicited complaint: UTI Pertinent past history: recurrent UTIs and other (kidney stone,lupus) Onset (ago): week(s) (3weeks) Location of symptoms: urethra and flank Related Data Home Medications Medication Instructions Recorded Confirmed azathioprine 50 mg tablet 50 mg PO DIRECTED 12/22/21 05/12/22 dextroamphetamine-amphetamine ER 30 mg PO DAILY 12/22/21 05/12/22 30 mg 24hr capsule,extend release hydroxychloroquine 200 mg tablet 200 mg PO DIRECTED 12/22/21 05/12/22 lurasidone 40 mg tablet (Latuda) 40 mg DAILY 05/12/22 05/12/22 quetiapine 25 mg tablet 25 mg DAILY 05/12/22 05/12/22 Allergies Allergy/AdvReac Type Severity Reaction Status Date / Time amoxicillin Allergy Severe Hives Verified 05/12/22 09:35 metoclopramide Allergy Severe Other Verified 05/12/22 09:35 sulfamethoxazole Allergy Severe Confusion Verified 05/12/22 09:35 [From Bactrim] trimethoprim [From Bactrim] Allergy Severe Confusion Verified 05/12/22 09:35 lamotrigine Allergy Hives Verified 05/12/22 09:35 iron AdvReac Severe Vomiting Verified 05/12/22 09:35 Review of Systems Review of Systems: CONSTITUTIONAL: Denies fever, chills, or sweats. CARDIOVASCULAR: Denies chest pain, palpitations, or edema. RESPIRATORY: Denies cough or dyspnea. GASTROINTESTINAL: Denies abdominal pain, nausea, vomiting, or diarrhea. GENITOURINARY: Reports dysuria,no frequency, urgency. Reports flank pain bilateral no hematuria.white vaginal discharge SKIN: Denies rash or itching. MUSCULOSKELETAL: Denies back pain or myalgia. positive for CVA tenderness NEUROLOGIC: Denies headache All systems reviewed & are unremarkable except as noted in HPI and below PMFSH Past Medical History Medical History (Updated 05/13/22 @ 00:01 by Jaun Tony) Anxiety Depression Lupus Pancreatitis Pulmonary embolism Seizure Surgical History Surgical History (Updated 12/24/21 @ 15:44 by Milka Olguin NP) History of cholecystectomy (Unknown) Previous section Family History Family History Grandparent DVT (deep venous thrombosis) Social History Social History Smoking status: Never smoker Alcohol intake: never Substance use: never Gender identity (if verbalized by the patient): Female Sexual Orientation (if Verbalized by the Patient): Straight or Heterosexual Spiritual care concerns: No Comments At time of signature, agree with nursing past medical, surgical, social and family history. There is no relevant family history pertinent to the presenting complaint Exam Narrative: GENERAL: Well-appearing, well-nourished, and in no acute distress. HEAD: Normocephalic, atraumatic. NECK: Supple. no lymphadenopathy CHEST: Clear to auscultation. No res
== END 2022-05-12 10:21 | disposition home or self-care (01) ==
PROVIDERS: Emergency Provider Registered Nurse
DX: N39.0 Urinary tract infection, site not specified (principal); Z86.711 Personal history of pulmonary embolism; F32.A Depression, unspecified; M32.9 Systemic lupus erythematosus, unspecified; F90.9 Attention-deficit hyperactivity disorder, unspecified type
CPT/HCPCS: 81003; 87086; 99213; G0463

== ENCOUNTER 2022-11-05 12:53 | Emergency (ER) | payer OTHER, SELFPAY ==
--- NOTE | ~2022-11-05 | CT_ITS ---
EXAMINATION: CT brain wo con DATE: 11/05/2022 14:49 INDICATION: fall . TECHNIQUE: Computed tomography (CT) of the head was performed without intravenous contrast. The mA wa s adjusted according to patient size. Iterative reconstruction technique was employed. The dose-lengt h product was 529.67 mGy-cm. COMPARISON: 08/08/2018. FINDINGS: No acute intracranial hemorrhage or extra-axial fluid collection. No hydrocephalus, mass, or herniation. No acute ischemic infarct. Unremarkable dural venous sinus attenuation. No acute osseous abnormality. The aerated spaces are clear. Prominent bilateral basal ganglia calcifications. IMPRESSION: No acute intracranial process. Reviewed, dictated and finalized at location K.
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
[2022-11-05 12:55] VITALS: BP 126/89; PULSE 107; RESP 18; TEMP 36.8; O2SAT 100
[2022-11-05] MEDS: KETOROLAC 30 MG/ML VIAL (*BKC) IM (14:39)
[2022-11-05] MEDS: ONDANSETRON HCL ODT 4 MG TABLET PO (14:39)
[2022-11-05] MEDS: ACETAMINOPHEN 500 MG TABLET 1000 MG PO (14:39)
[2022-11-05] MEDS: CYCLOBENZAPRINE HCL 10 MG TABLET PO (14:40)
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
[2022-11-05 15:55] LABS: Appearance Urine Cloudy (Clear); Bacteria Urine Rare /hpf; Bilirubin Urine Negative (Negative); Blood Urine Negative (Negative); Color Urine Dark Yellow (Yellow); Glucose Urine UA Negative (Negative); Ketones Urine Trace mg/dL (Negative); Leukocyte Esterase Ur 1+ LEU/UL (Negative); Nitrate Urine Negative (Negative); Non Pathogenic Casts 0-2; Protein Urine Trace mg/dL (Negative); RBC Urine 0-2 /hpf (0-2); Specific Grav Ur 1.023 (1.001-1.035); Squamous Epithelial Cell Urine Few /hpf (Few)
[2022-11-05 16:06] LABS: Add Urine Microscopic? YES
== END 2022-11-05 17:39 | disposition home or self-care (01) ==
PROVIDERS: Emergency Provider Nurse Practitioner Family
DX: S06.0X0A Concussion without loss of consciousness, initial encounter (principal); S80.212A Abrasion, left knee, initial encounter; N39.0 Urinary tract infection, site not specified; F41.9 Anxiety disorder, unspecified; F32.A Depression, unspecified; Z86.711 Personal history of pulmonary embolism; Z90.49 Acquired absence of other specified parts of digestive tract; Y04.8XXA Assault by other bodily force, initial encounter
CPT/HCPCS: 70450; 73564; 81001; 81025; 87086; 87088; 96372; 99284; A9270; J1885

== ENCOUNTER 2022-11-13 12:07 | Emergency (ER) | payer OTHER, SELFPAY ==
[2022-11-13] VITALS (13 sets, daily range): BP systolic 97–134; BP diastolic 70–92; PULSE 92–113; RESP 16–25; TEMP 36.6–37; O2SAT 96–100
--- NOTE | ~2022-11-13 | XR_ITS ---
Left Hand Technique: PA, oblique, and lateral views were obtained. Clinical History: Pain Findings: There is a probable oblique, nondisplaced fracture of the fourth metacarpal shaft. No other fracture or dislocation seen. Joint spaces are preserved. Dorsal soft tissue swelling the hand noted . Impression: Probable oblique, nondisplaced fracture the fourth metacarpal shaft. Dorsal soft tissue swelling. Reviewed, dictated and finalized at location . Impression: Probable oblique, nondisplaced fracture the fourth metacarpal shaft. Dorsal soft tissue swelling.
[2022-11-13 12:58] LABS: Basophils Percent Auto 0.1 % (0.2-1.2); Hematocrit 28.3 % (37.0-47.0); Hemoglobin 9.2 g/dL (12.0-15.0); Immature Granulocyte Absolute 0.03 K/mm3 (0.00-0.031); Immature Granulocyte Percent A 0.3 % (0-0.5); Lymphocytes Absolute Auto 0.42 K/mm3 (0.9-3.2); Lymphocytes Percent Auto 4.2 % (18.3-44.2); Mean Corpuscular HGB Conc 32.5 g/dl (32-36); Mean Corpuscular Hemoglobin 25.8 pg (26-34); Mean Corpuscular Volume 79.3 fl (80-100); Mean Platelet Volume 10.3 fl (7.4-10.4); Monocytes Absolute Auto 0.5 K/mm3 (0.1-0.6); Monocytes Percent Auto 4.9 % (2.6-8.5); Neutrophils Percent Auto 90.5 % (45.5-73.1); Platelet Count Result 250 k/mm3 (150-375); Red Blood Count 3.57 M/mm3 (4.2-5.4); Red Cell Distribution Width 16.6 % (11.5-14.5); White Blood Count 9.9 K/mm3 (4.5-10.0)
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
[2022-11-13 13:08] LABS: Alanine Aminotransferase 20 U/L (6-35); Albumin Level 4.5 g/dL (3.5-5.1); Alkaline Phosphatase 70 U/L (38-126); Anion Gap 15 mmol/L (8-16); Aspartate Amino Transferase 28 U/L (14-36); Bilirubin,Total 0.5 mg/dL (0.2-1.3); Blood Urea Nitrogen 10 mg/dL (7-17); Calcium 9.6 mg/dL (8.4-10.2); Carbon Dioxide 16 mmol/L (22-30); Chloride 110 mmol/L (98-107); Estimated CRCL calculation 103 ml/min; Estimated Glomerular Filt Rate > 60; Glucose 99 mg/dL (65-110); Potassium 3.3 mmol/L (3.4-5.0); Sodium 141 mmol/L (137-145)
[2022-11-13 13:09] LABS: Acetaminophen < 10 ug/mL (10-30); Salicylate < 1.0 mg/dL (2-20)
[2022-11-13 13:09] LABS: Bacteria Urine None Seen /hpf; Need Manual Microscopic Reviewed; Non Pathogenic Casts 0-2; RBC Urine >100 /hpf (0-2); Squamous Epithelial Cell Urine Few /hpf (Few); WBC Urine 0-5 /hpf
[2022-11-13 13:09] LABS: Ethanol < 10 mg/dL (<10)
[2022-11-13 13:12] LABS: Appearance Urine Cloudy (Clear); Bilirubin Urine Negative (Negative); Blood Urine 3+ (Negative); Color Urine Orange (Yellow); Glucose Urine UA Negative (Negative); Ketones Urine Negative (Negative); Leukocyte Esterase Ur 1+ LEU/UL (Negative); Nitrate Urine Negative (Negative); Protein Urine 2+ mg/dL (Negative); Specific Grav Ur 1.019 (1.001-1.035)
[2022-11-13 13:16] LABS: Amphetamine Screen Urine Positive (Negative); Barbiturate Screen Urine Negative (Negative); Benzodiazepines Screen Urine Negative (Negative); Cannabinoid Screen Urine Positive (Negative); Cocaine Screen Urine Negative (Negative); Methadone Screen Urine Negative (Negative); Opiate Screen Urine Negative (Negative); Phencyclidine Screen Urine Negative (Negative)
[2022-11-13 13:17] LABS: Add Urine Microscopic? YES
--- NOTE | 2022-11-13 13:21 | PC.NURSE ---
PT'S FATHER PATRICIA ESPOSITO CALLED [phone]. HE IS AWARE OF PT BEING HERE FOR EVALUATION AND STATES WILL COME UP TO BE WITH HER LATER THIS AFTERNOON.
[2022-11-13 13:35] LABS: Influenza A QL RT-PCR Negative (Negative); Influenza B QL RT-PCR Negative (Negative); SARS-CoV-2 RNA PCR Negative (Negative)
[2022-11-13 13:43] LABS: Thyroid Stimulating Hormone 0.909 uIU/mL (0.465-4.680)
--- NOTE | 2022-11-13 13:51 | ECG_ITS ---
Measurements Intervals [place] Rate: 106 P: 62 OR: 156 QRS: 53 QRSD: 97 T: -3 QT: 369 QTc: 492 Interpretive Statements SINUS TACHYCARDIA POSSIBLE LEFT ATRIAL ENLARGEMENT [-0.1mV P WAVE IN V1/V2] POSSIBLE RIGHT VENTRICULAR CONDUCTION DELAY [RSR (QR) IN V1/V2] NONSPECIFIC ST & T-WAVE ABNORMALITY ABNORMAL RHYTHM ECG COMPARED TO ECG 11/14/2020 15:12:36 No significant change Electronically Signed On 11-13-2022 14:55:50 CDT by Renee Pringle M.D.
--- NOTE | 2022-11-13 18:25 | PC.NURSE ---
Patient becoming agitated. EDP made aware. Patient agreeable to PO medication. VORB from Dr. Hernandez for 0.5mg ativan received.
[2022-11-13] MEDS: LORazepam (*CRX) 0.5 MG TABLET PO (18:35)
--- NOTE | 2022-11-13 19:54 | PC.NURSE ---
Pt has been medically cleared per EDP David
[2022-11-13 20:30] LABS: Magnesium 1.6 mg/dL (1.6-2.3)
--- NOTE | 2022-11-13 20:35 | PC.NURSE ---
Pt uncooperative with [place] Screening questions, but states she does not have any thoughts of hurting herself. Able to be redirected.
--- NOTE | 2022-11-13 20:46 | PC.NURSE ---
Chart refaxed to [facility] per request.
--- NOTE | 2022-11-13 21:19 | PC.NURSE ---
Received call from [facility], spoke with Ranjana, who states pts acuity is too high for available beds.
--- NOTE | 2022-11-14 01:11 | PC.NURSE ---
Pt has been accepted to [facility], with accepting physician Dr. Cummings. Pt can arrive at accepting facility after 10am on 11/14/2022. Nurse to nurse report can be called at [phone] after 8am.
--- NOTE | 2022-11-14 04:49 | PC.NURSE ---
Pt /o L hand pain. EDP notified.
--- NOTE | 2022-11-14 06:32 | PC.NURSE ---
This RN received call from [facility], who states they are rescinding the bed for pt due to pt not being voluntary. Can call intake tool machine shop supervisor at [phone] after 8am to speak about the issue further
--- NOTE | 2022-11-14 07:15 | PC.NURSE ---
This RN assumed care of pt from DANILO Coy at this time.
[2022-11-14 07:42] VITALS: BP 115/77; PULSE 101; RESP 22; TEMP 37.6; O2SAT 100
--- NOTE | 2022-11-14 11:22 | PC.NURSE ---
Christine rivera/ [facility] called to ask records to be faxed to [facility] at [phone] due to fax issues with previous fax number given. Full records faxed at this time by this RN as requested.
[2022-11-14 12:50] VITALS: BP 106/70; PULSE 72; RESP 20; TEMP 37.5; O2SAT 99
[2022-11-14] MEDS: POTASSIUM CHLORIDE 20 MEQ ER TABLET PO (13:24)
== END 2022-11-14 15:27 ==
PROVIDERS: Emergency Medicine; Emergency Provider Emergency Medicine
DX: T50.902A Poisoning by unspecified drugs, medicaments and biological substances, intentional self-harm, initial encounter (principal); F32.A Depression, unspecified; F29 Unspecified psychosis not due to a substance or known physiological condition; S62.355A Nondisplaced fracture of shaft of fourth metacarpal bone, left hand, initial encounter for closed fracture; Z20.822 Contact with and (suspected) exposure to COVID-19; F41.9 Anxiety disorder, unspecified; Z86.711 Personal history of pulmonary embolism; Z90.49 Acquired absence of other specified parts of digestive tract; R00.0 Tachycardia, unspecified; R94.31 Abnormal electrocardiogram [ECG] [EKG]; X58.XXXA Exposure to other specified factors, initial encounter
CPT/HCPCS: 36415; 73130; 80053; 80307; 81001; 81025; 83735; 84443; 85025; 87636; 93005; 99285; A9270

== ENCOUNTER 2022-11-27 11:01 | Emergency (ER) | payer OTHER, SELFPAY ==
--- NOTE | ~2022-11-27 | XR_ITS ---
EXAMINATION: XR hand LT min 3V DATE: 11/27/2022 11:33 INDICATION: Left hand pain. TECHNIQUE: 4 views of left hand were obtained. COMPARISON: Left hand radiographs 11/14/2022 FINDINGS: Bone alignment is normal. There is a nondisplaced oblique fracture of diaphysis of fourth m etacarpal. Joint spaces are normal. IMPRESSION: 1. Unchanged nondisplaced oblique fracture of diaphysis of fourth metacarpal. Reviewed, dictated and finalized at location A.
[2022-11-27 11:02] VITALS: BP 117/74; PULSE 87; RESP 16; TEMP 36.3; O2SAT 99
[2022-11-27] MEDS: KETOROLAC (*BKC) 60 MG/2 ML VIAL IM (12:12)
--- NOTE | 2022-11-27 12:16 | ED.UPPEXIN ---
HPI - Extremity Injury (Upper) General Chief Complaint: Extremity Injury, Upper Stated Complaint: re-injnured left hand injury Time Seen by Provider: 11/27/22 11:30 Source: patient and old records reviewed Mode of arrival: ambulatory Limitations: no limitations History of Present Illness HPI narrative: Patient is a 72-year-old female who presents to the ED with report of left hand pain. Patient reports she was diagnosed with a fracture of her left fourth metacarpal on 11/13. She was placed in an ulnar gutter splint at that time. She has since followed up with Dr. Medina with plastics/hand surgery. She was given a removable ulnar gutter splint that she has been doing well with. Last night patient did not have her splint on and tripped. She tried catching herself with her left hand and complains of worsening pain to her left hand since then. She is concerned she worsened the fracture. She was unable to put her splint back on due to the swelling. Denies any other injuries. Denies numbness or tingling. She has not taken anything for pain today. Related Data Home Medications Medication Instructions Recorded Confirmed azathioprine 50 mg tablet 50 mg PO DAILY 12/22/21 11/21/22 dextroamphetamine-amphetamine ER 30 mg PO DAILY 12/22/21 11/21/22 30 mg 24hr capsule,extend release hydroxychloroquine 200 mg tablet 300 mg PO DAILY 12/22/21 11/21/22 lurasidone 40 mg tablet (Latuda) 40 mg DAILY 05/12/22 11/21/22 quetiapine 25 mg tablet 50 mg PO PRN PRN (Drug) Ingestion 05/12/22 11/21/22 gabapentin 100 mg capsule 100 mg PO TID 11/14/22 11/21/22 prazosin 1 mg capsule 1 mg PO DAILY 11/14/22 11/21/22 quetiapine 200 mg tablet 400 mg PO HS 11/14/22 11/21/22 Allergies Allergy/AdvReac Type Severity Reaction Status Date / Time amoxicillin Allergy Severe Hives Verified 11/21/22 09:24 metoclopramide Allergy Severe Other Verified 11/21/22 09:24 sulfamethoxazole Allergy Severe Confusion Verified 11/21/22 09:24 [From Bactrim] trimethoprim [From Bactrim] Allergy Severe Confusion Verified 11/21/22 09:24 lamotrigine Allergy Hives Verified 11/21/22 09:24 iron AdvReac Severe Vomiting Verified 11/21/22 09:24 Review of Systems Review of Systems: CONSTITUTIONAL: Denies fever, chills, or sweats. MUSCULOSKELETAL: See HPI. NEUROLOGIC: Denies tingling, numbness, or weakness. All systems reviewed & are unremarkable except as noted in HPI and below PMFSH Past Medical History Medical History Anxiety Depression Lupus Pancreatitis Pulmonary embolism Seizure Surgical History Surgical History History of cholecystectomy (Unknown) Previous section Family History Family History Grandparent DVT (deep venous thrombosis) Social History Social History Smoking status: Never smoker Alcohol intake: never Substance use: never Substance use type: marijuana and methamphetamine Lack of Transportation: No Lack of Food: Never True Current Housing: I Have Housing Concerned About Future Housing: No Difficulty Paying Gas/Electric Bills: No Difficulty Paying for Meds: No Currently Unemployed: No Education: High School Diploma/GED Difficulty w/ Childcare or Family Care: No Gender identity (if verbalized by the patient): Female Sexual Orientation (if Verbalized by the Patient): Straight or Heterosexual Spiritual care concerns: No Exam Narrative: GENERAL: Well appearing, obese with BMI of 30.0, non-toxic, in no acute distress. HEAD: Normocephalic, atraumatic. NECK: Supple. No adenopathy, no masses. RESPIRATORY: Airway patent, respirations nonlabored. CARDIOVASCULAR: Regular rate and rhythm without murmurs, rubs, or gallops. Radial pulses 2+ and equal bilaterally. MUSCU
== END 2022-11-27 12:39 | disposition home or self-care (01) ==
PROVIDERS: Emergency Provider Physician Assistant
DX: S62.355D Nondisplaced fracture of shaft of fourth metacarpal bone, left hand, subsequent encounter for fracture with routine healing (principal); F41.9 Anxiety disorder, unspecified; F32.A Depression, unspecified; Z86.711 Personal history of pulmonary embolism; Z90.49 Acquired absence of other specified parts of digestive tract; X58.XXXS Exposure to other specified factors, sequela
CPT/HCPCS: 29125; 73130; 96372; 99284; J1885

== ENCOUNTER 2022-12-02 17:27 | Emergency (ER) | payer OTHER, SELFPAY ==
[2022-12-02 17:45] VITALS: BP 149/80; PULSE 107; RESP 16; TEMP 37.5; O2SAT 98
--- NOTE | 2022-12-02 18:02 | ED.DENTAL ---
HPI - Dental/Oral General Chief complaint: Dental/Oral Stated complaint: Dental Pain Time Seen by Provider: 12/02/22 18:00 Source: patient, RN notes reviewed and old records reviewed Mode of arrival: ambulatory Limitations: no limitations History of Present Illness HPI Narrative: 32 year old female who presents to express care with complaints of awakening about 2 hours ago with severe dental pain.Patient is crying holding her jaw and reports severe pain to the right lower molar which is broken and also has redness and swelling of gum around tooth. Patient is very dramatic about her pain but has not taken anything over the counter. Patient reports that she has a dentist she thinks she can get into next week.Patient seen in ED on the for fracture of left 4th metacarpal and patient not wearing splint swelling of hand noted. Patient reports that she needs an antibiotic. MD Complaint: tooth pain Location: Tooth # (30) Onset (ago): hour(s) (severe for past 2 hours) Duration: constant Severity scale (1-10): 10 Treatment prior to arrival: none Related Data Home Medications Medication Instructions Recorded Confirmed azathioprine 50 mg tablet 50 mg PO DAILY 12/22/21 12/02/22 dextroamphetamine-amphetamine ER 30 mg PO DAILY 12/22/21 12/02/22 30 mg 24hr capsule,extend release hydroxychloroquine 200 mg tablet 300 mg PO DAILY 12/22/21 12/02/22 lurasidone 40 mg tablet (Latuda) 40 mg DAILY 05/12/22 12/02/22 quetiapine 25 mg tablet 50 mg PO PRN PRN (Drug) Ingestion 05/12/22 12/02/22 gabapentin 100 mg capsule 100 mg PO TID 11/14/22 12/02/22 prazosin 1 mg capsule 1 mg PO DAILY 11/14/22 12/02/22 quetiapine 200 mg tablet 400 mg PO HS 11/14/22 12/02/22 levothyroxine 50 mcg tablet 50 mcg PO DAILY 12/02/22 12/02/22 lorazepam 1 mg tablet See Rx Instructions .Route .COMPLEX 12/02/22 12/02/22 magnesium oxide 400 mg (241.3 mg 400 mg PO DAILY 12/02/22 12/02/22 magnesium) tablet topiramate 25 mg tablet 25 mg PO BID 12/02/22 12/02/22 Allergies Allergy/AdvReac Type Severity Reaction Status Date / Time amoxicillin Allergy Severe Hives Verified 12/02/22 17:36 metoclopramide Allergy Severe Other Verified 12/02/22 17:36 sulfamethoxazole Allergy Severe Confusion Verified 12/02/22 17:36 [From Bactrim] trimethoprim [From Bactrim] Allergy Severe Confusion Verified 12/02/22 17:36 lamotrigine Allergy Hives Verified 12/02/22 17:36 iron AdvReac Severe Vomiting Verified 12/02/22 17:36 Review of Systems Review of Systems: CONSTITUTIONAL: Denies fever, chills, or sweats. ENT: Denies rhinorrhea, congestion, sore throat, or otalgia. Reports dental pain right lower molar crying CARDIOVASCULAR: Denies chest pain, palpitations, or edema. RESPIRATORY: Denies cough or dyspnea. SKIN: Denies rash or itching. MUSCULOSKELETAL: Denies myalgia.pain to left dorsal 4th metacarpal from recent fracture stated not wearing splint. NEUROLOGIC: Denies headache All systems reviewed & are unremarkable except as noted in HPI and below PMFSH Past Medical History Medical History (Updated 12/04/22 @ 11:30 by Milak Olguin NP) Anxiety Bipolar 1 disorder, mixed, moderate Depression Lupus Pancreatitis Pulmonary embolism Seizure Surgical History Surgical History History of cholecystectomy (Unknown) Previous section Family History Family History Grandparent DVT (deep venous thrombosis) Social History Social History Smoking status: Never smoker Alcohol intake: never Substance use: never Substance use type: marijuana and methamphetamine Lack of Transportation: No Lack of Food: Never True Current Housing: I Have Housing Concerned About Future Housing: No Difficulty Paying Gas/Electric Bills: No Difficulty Paying for Meds: No Currently Unemployed: No Education: High
== END 2022-12-02 18:23 | disposition home or self-care (01) ==
PROVIDERS: Emergency Provider Registered Nurse
DX: K04.7 Periapical abscess without sinus (principal); S02.5XXA Fracture of tooth (traumatic), initial encounter for closed fracture; X58.XXXA Exposure to other specified factors, initial encounter; F31.9 Bipolar disorder, unspecified; F41.9 Anxiety disorder, unspecified; Z86.711 Personal history of pulmonary embolism; G40.909 Epilepsy, unspecified, not intractable, without status epilepticus
CPT/HCPCS: 99213; G0463

== ENCOUNTER 2023-01-31 05:44 | Emergency (ER) | payer OTHER, SELFPAY ==
[2023-01-31 05:44] VITALS: BP 134/72; PULSE 126; RESP 22; TEMP 37; O2SAT 99
--- NOTE | 2023-01-31 06:07 | ED.GENADULT ---
HPI - General Adult General Chief complaint: Dental/Oral Stated complaint: L lower dental pain Time Seen by Provider: 01/31/23 06:01 History of Present Illness HPI narrative: Patient is a 32-year-old female who presents the emergency department with chief complaint of dental pain. The patient reports that she has a tooth that she needs to have a root canal on but reports that she has been unable to afford the root canal. Patient denies fever denies trismus reports the area is exquisitely painful and her lower mandible is slightly swollen Related Data Home Medications Medication Instructions Recorded Confirmed azathioprine 50 mg tablet 50 mg PO DAILY 12/22/21 12/05/22 dextroamphetamine-amphetamine ER 30 mg PO DAILY 12/22/21 12/05/22 30 mg 24hr capsule,extend release hydroxychloroquine 200 mg tablet 300 mg PO DAILY 12/22/21 12/05/22 lurasidone 40 mg tablet (Latuda) 40 mg DAILY 05/12/22 12/05/22 quetiapine 25 mg tablet 50 mg PO PRN PRN (Drug) Ingestion 05/12/22 12/05/22 gabapentin 100 mg capsule 100 mg PO TID 11/14/22 12/05/22 prazosin 1 mg capsule 1 mg PO DAILY 11/14/22 12/05/22 quetiapine 200 mg tablet 400 mg PO HS 11/14/22 12/05/22 levothyroxine 50 mcg tablet 50 mcg PO DAILY 12/02/22 12/05/22 lorazepam 1 mg tablet See Rx Instructions .Route .COMPLEX 12/02/22 12/05/22 magnesium oxide 400 mg (241.3 mg 400 mg PO DAILY 12/02/22 12/05/22 magnesium) tablet topiramate 25 mg tablet 25 mg PO BID 12/02/22 12/05/22 Allergies Allergy/AdvReac Type Severity Reaction Status Date / Time amoxicillin Allergy Severe Hives Verified 12/05/22 09:45 metoclopramide Allergy Severe Other Verified 12/05/22 09:45 sulfamethoxazole Allergy Severe Confusion Verified 12/05/22 09:45 [From Bactrim] trimethoprim [From Bactrim] Allergy Severe Confusion Verified 12/05/22 09:45 lamotrigine Allergy Hives Verified 12/05/22 09:45 iron AdvReac Severe Vomiting Verified 12/05/22 09:45 Review of Systems Review of Systems: A 10 system review of systems was completed on the patient and is negative except for what is stated in the HPI. Nursing and ancillary documentation was reviewed. [facility] Past Medical History Medical History Anxiety Bipolar 1 disorder, mixed, moderate Depression Lupus Pancreatitis Pulmonary embolism Seizure Surgical History Surgical History History of cholecystectomy (Unknown) Previous section Family History Family History Grandparent DVT (deep venous thrombosis) Social History Social History Smoking status: Never smoker Alcohol intake: never Substance use: never Substance use type: marijuana and methamphetamine Lack of Transportation: No Lack of Food: Never True Current Housing: I Have Housing Concerned About Future Housing: No Difficulty Paying Gas/Electric Bills: YES Difficulty Paying for Meds: No Currently Unemployed: No Education: High School Diploma/GED Difficulty w/ Childcare or Family Care: No Gender identity (if verbalized by the patient): Female Sexual Orientation (if Verbalized by the Patient): Straight or Heterosexual Spiritual care concerns: No Exam Narrative: GENERAL: Well-appearing, well-nourished, and in no acute distress. HEAD: Normocephalic, atraumatic. EYES: PERRLA and EOMI. ENT: Nares clear, no rhinorrhea or epistaxis. Mucous membranes moist. There is swelling present in the lower mandible, there is no fluctuance no crepitance no necrotic tissue. There are multiple carious teeth NECK: Supple. CHEST: Clear to auscultation. No respiratory distress. HEART: Regular rate and rhythm. No murmur heard. Normal peripheral pulses. ABDOMEN: Soft, nontender, nondistended, normal active bowel sounds. EXTREMITIES: N
[2023-01-31] MEDS: CLINDAMYCIN HCL 150 MG CAP 300 MG PO (06:12)
[2023-01-31] MEDS: HYDROcodone/acetaminophen (*CRX) 5-325 MG TABLET 1 TAB PO (06:12)
== END 2023-01-31 06:25 | disposition home or self-care (01) ==
PROVIDERS: Emergency Provider Emergency Medicine
DX: K04.7 Periapical abscess without sinus (principal); F41.9 Anxiety disorder, unspecified; F32.A Depression, unspecified
CPT/HCPCS: 99283; A9270

== ENCOUNTER 2023-03-07 15:57 | Emergency (ER) | payer OTHER, SELFPAY ==
--- NOTE | 2023-03-07 16:04 | ED.NAVMDI ---
HPI - Nausea/Vomiting/Diarrhea General Chief complaint: Nausea/Vomiting/Diarrhea Stated complaint: throwing up,diarrhea,stomach pains Time Seen by Provider: 03/07/23 16:50 Source: patient and RN notes reviewed Mode of arrival: ambulatory Limitations: no limitations History of Present Illness HPI Narrative: 32-year-old female presents with concern for 5 day history of nausea, vomiting, diarrhea, stomach cramping. She reports epigastric cramping before she has diarrhea. She reports she has been having diarrhea for 5 days and started vomiting today. She reports she is drinking fluids and is urinating a normal amount. She denies fever, aches, chills. Denies any known sick contacts. Reports she took Pepto-Bismol but it did not work so she is not taking. Reports normal menstrual periods, her last menstrual period was 2 weeks ago MD elicited complaint: nausea, vomiting and diarrhea Related Data Home Medications Medication Instructions Recorded Confirmed azathioprine 50 mg tablet 50 mg PO DAILY 12/22/21 03/07/23 dextroamphetamine-amphetamine ER 10 mg PO DAILY 12/22/21 03/07/23 30 mg 24hr capsule,extend release hydroxychloroquine 200 mg tablet 300 mg PO DAILY 12/22/21 03/07/23 lurasidone 40 mg tablet (Latuda) 40 mg DAILY 05/12/22 03/07/23 quetiapine 25 mg tablet 50 mg PO PRN PRN (Drug) Ingestion 05/12/22 03/07/23 prazosin 1 mg capsule 1 mg PO DAILY 11/14/22 03/07/23 levothyroxine 50 mcg tablet 50 mcg PO DAILY 12/02/22 03/07/23 lorazepam 1 mg tablet See Rx Instructions .Route .COMPLEX 12/02/22 03/07/23 topiramate 25 mg tablet 25 mg PO BID 12/02/22 03/07/23 Allergies Allergy/AdvReac Type Severity Reaction Status Date / Time amoxicillin Allergy Severe Hives Verified 03/07/23 16:26 lamotrigine Allergy Severe Hives Verified 03/07/23 16:26 metoclopramide Allergy Severe Other Verified 03/07/23 16:26 sulfamethoxazole Allergy Severe Confusion Verified 03/07/23 16:26 [From Bactrim] trimethoprim [From Bactrim] Allergy Severe Confusion Verified 03/07/23 16:26 iron AdvReac Severe Vomiting Verified 03/07/23 16:26 Review of Systems Review of Systems: CONSTITUTIONAL: Denies malaise, chills, sweats, or fever. ENT: Denies rhinorrhea, congestion, sinus pain, otalgia or sore throat. CARDIOVASCULAR: Denies chest pain, palpitations, or edema. RESPIRATORY: Denies cough or dyspnea. GASTROINTESTINAL: Reports epigastric cramping, nausea, vomiting, diarrhea. Denies bloody or mucous stools. GENITOURINARY: Denies dysuria or hematuria. MUSCULOSKELETAL: Denies myalgia. NEUROLOGIC: Denies headache. All systems reviewed & are unremarkable except as noted in HPI and below PMFSH Past Medical History Medical History Anxiety Bipolar 1 disorder, mixed, moderate Depression Lupus Pancreatitis Pulmonary embolism Seizure Surgical History Surgical History History of cholecystectomy (Unknown) Previous section Family History Family History Grandparent DVT (deep venous thrombosis) Social History Social History Smoking status: Never smoker Alcohol intake: never Substance use: never Substance use type: marijuana and methamphetamine Lack of Transportation: No Lack of Food: Never True Current Housing: I Have Housing Concerned About Future Housing: No Difficulty Paying Gas/Electric Bills: YES Difficulty Paying for Meds: No Currently Unemployed: No Education: High School Diploma/GED Difficulty w/ Childcare or Family Care: No Gender identity (if verbalized by the patient): Female Sexual Orientation (if Verbalized by the Patient): Straight or Heterosexual Spiritual care concerns: No Comments At time of signature, agree with nursing past medical, surgical, social and
[2023-03-07 16:19] VITALS: BP 137/71; PULSE 90; RESP 16; TEMP 36.9; O2SAT 100
== END 2023-03-07 17:15 | disposition home or self-care (01) ==
PROVIDERS: Emergency Provider Nurse Practitioner
DX: R11.2 Nausea with vomiting, unspecified (principal); R19.7 Diarrhea, unspecified; Z79.899 Other long term (current) drug therapy
CPT/HCPCS: 99213; G0463

== ENCOUNTER 2023-03-15 19:26 | Emergency (ER) | payer OTHER, SELFPAY ==
--- NOTE | ~2023-03-15 | US_ITS ---
EXAMINATION: US venous doppler UE DATE: 03/15/2023 21:01 INDICATION: Redness and firmness in the left forearm. TECHNIQUE: Grayscale ultrasound images without and with compression and Doppler ultrasound images of the left upper extremity veins were obtained. COMPARISON: None. FINDINGS: The distal cephalic vein is noncompressible, with no flow. The visualized portions of the left video editing intern al jugular vein, subclavian vein, axillary vein, brachial veins, basilic vein, radial vein, and ulnar vein are patent. IMPRESSION: Acute occlusive thrombosis in the distal cephalic vein. Reviewed, dictated and finalized at location K. L [facility]ER
[2023-03-15 19:30] VITALS: BP 122/68; PULSE 75; RESP 14; TEMP 36.6; O2SAT 100
[2023-03-15 19:45] LABS: Basophils Percent Auto 0.2 % (0.2-1.2); Eosinophils Absolute Auto 0.1 K/mm3 (0-0.3); Eosinophils Percent Auto 1.3 % (0-4.4); Hematocrit 30.5 % (37.0-47.0); Hemoglobin 9.5 g/dL (12.0-15.0); Immature Granulocyte Absolute 0.01 K/mm3 (0.00-0.031); Immature Granulocyte Percent A 0.2 % (0-0.5); Lymphocytes Absolute Auto 1.01 K/mm3 (0.9-3.2); Lymphocytes Percent Auto 21.4 % (18.3-44.2); Mean Corpuscular HGB Conc 31.1 g/dl (32-36); Mean Corpuscular Hemoglobin 24.9 pg (26-34); Mean Corpuscular Volume 79.8 fl (80-100); Mean Platelet Volume 10.1 fl (7.4-10.4); Monocytes Absolute Auto 0.3 K/mm3 (0.1-0.6); Monocytes Percent Auto 7.2 % (2.6-8.5); Neutrophils Absolute Auto 3.3 K/mm3 (1.3-6.7); Neutrophils Percent Auto 69.7 % (45.5-73.1); Platelet Count Result 259 k/mm3 (150-375); Red Blood Count 3.82 M/mm3 (4.2-5.4); White Blood Count 4.7 K/mm3 (4.5-10.0)
[2023-03-15 19:57] LABS: Partial Thromboplastin Time 31.7 SECONDS (22.3-36.8); Prothrombin Time 13.3 Seconds (11.1-14.7)
[2023-03-15 20:01] LABS: Alanine Aminotransferase 24 U/L (6-35); Albumin Level 4.3 g/dL (3.5-5.1); Alkaline Phosphatase 94 U/L (38-126); Anion Gap 10 mmol/L (8-16); Aspartate Amino Transferase 38 U/L (14-36); Bilirubin,Total 0.6 mg/dL (0.2-1.3); Blood Urea Nitrogen 8 mg/dL (7-17); CRP < 0.5 mg/dL (<1.0); Carbon Dioxide 25 mmol/L (22-30); Chloride 103 mmol/L (98-107); Estimated CRCL calculation 121 ml/min; Estimated Glomerular Filt Rate > 60; Glucose 87 mg/dL (65-110); Potassium 3.6 mmol/L (3.4-5.0); Sodium 138 mmol/L (137-145)
--- NOTE | 2023-03-15 23:30 | PC.NURSE ---
pt. to desk stating i have to go home. pt. ambulated out of ed w/ steady gait.
== END 2023-03-16 01:01 | disposition left against medical advice (07) ==
PROVIDERS: Emergency Provider Physician Assistant
DX: I82.612 Acute embolism and thrombosis of superficial veins of left upper extremity (principal)
CPT/HCPCS: 36415; 80053; 85025; 85610; 85730; 86140; 93971; 99199

== ENCOUNTER 2024-06-12 15:36 | Emergency (ER) | payer OTHER, SELFPAY ==
--- NOTE | ~2024-06-12 | CT_ITS ---
CLINICAL INDICATION: Right buttock hematoma after blunt trauma. COMPARISON: None. TECHNIQUE: Computed tomography (CT) of the pelvis was performed following the administration of intra venous contrast. The dose-length product was 397.71 mGy-cm. FINDINGS/OBSERVATIONS: Within the soft tissues of right buttock, superficial to the gluteus musculature is a focus of mixed attenuation measuring 4.5 x 9.6 x 12.0 cm, consistent with patient's history of hematoma. Blunting of different ages are identified. No rim enhancement is present. No asymmetry of the underlying musculature is appreciated. The bladder is minimally distended, and otherwise unremarkable. The uterus is anteverted and anteflexed. Intrauterine device is identified in good position. Bowel loops are unremarkable. No fracture deformity within the visualized osseous structures. IMPRESSION: Large right buttock hematoma, as detailed above. Reviewed, dictated and finalized at location A. S OFFICER
[2024-06-12 15:39] VITALS: BP 104/72; PULSE 117; RESP 18; TEMP 36.3; O2SAT 100
--- NOTE | 2024-06-12 16:10 | ED_ITS ---
HPI - General Adult General Chief complaint: Fall Stated complaint: Swollen right Buttock-fell 2 wks ago Time Seen by Provider: 06/12/24 15:57 History of Present Illness HPI narrative: Patient is a 34-year-old female who presents ER with a swollen buttock on the right side. Fell down steps at work 2 weeks ago and struck [address]. She has developed swelling and pain and cannot sit on right side. No fevers or chills. No drainage. Pain is only worsened by not lying on the affected side. Related Data Home Medications ?Medication ?Instructions ?Recorded ?Confirmed ?Last Taken ?Type azathioprine 50 mg tablet 50 mg PO DAILY 12/22/21 03/07/23 Unknown History dextroamphetamine-amphetamine ER 10 mg PO DAILY 12/22/21 03/07/23 Unknown History 30 mg 24hr capsule,extend release hydroxychloroquine 200 mg tablet 300 mg PO DAILY 12/22/21 03/07/23 Unknown History lurasidone 40 mg tablet (Latuda) 40 mg DAILY 05/12/22 03/07/23 Unknown History quetiapine 25 mg tablet 50 mg PO PRN PRN (Drug) Ingestion 05/12/22 03/07/23 Unknown History prazosin 1 mg capsule 1 mg PO DAILY 11/14/22 03/07/23 Unknown History levothyroxine 50 mcg tablet 50 mcg PO DAILY 12/02/22 03/07/23 Unknown History lorazepam 1 mg tablet See Rx Instructions .Route .COMPLEX 12/02/22 03/07/23 Unknown History topiramate 25 mg tablet 25 mg PO BID 12/02/22 03/07/23 Unknown History Allergies Allergy/AdvReac Type Severity Reaction Status Date / Time amoxicillin Allergy Severe Hives Verified 06/12/24 15:38 lamotrigine Allergy Severe Hives Verified 06/12/24 15:38 metoclopramide Allergy Severe Other Verified 06/12/24 15:38 sulfamethoxazole (From Allergy Severe Confusion Verified 06/12/24 15:38 Bactrim) trimethoprim (From Bactrim) Allergy Severe Confusion Verified 06/12/24 15:38 iron AdvReac Severe Vomiting Verified 06/12/24 15:38 Review of Systems 2 Constitutional: Constitutional: Reports no additional constitutional complaints Musculoskeletal: Musculoskeletal: Reports no additional musculoskeletal complaints Integumentary/Breasts: Skin/Breast: Reports system reviewed and no additional complaints, except as docu PMFSH Past Medical History Medical History Anxiety Bipolar 1 disorder, mixed, moderate Depression Lupus Pancreatitis Pulmonary embolism Seizure Surgical History Surgical History History of cholecystectomy (Unknown) Previous section Family History Family History Grandparent DVT (deep venous thrombosis) Social History Social History Smoking status: Never smoker Alcohol intake: never Substance use: never Substance use type: marijuana and methamphetamine Lack of Transportation: No Lack of Food: Never True Current Housing: I Have Housing Concerned About Future Housing: No Difficulty Paying Gas/Electric Bills: YES Difficulty Paying for Meds: No Currently Unemployed: No Education: High School Diploma/GED Difficulty w/ Childcare or Family Care: No Gender identity (if verbalized by the patient): Female Sexual Orientation (if Verbalized by the Patient): Straight or Heterosexual Spiritual care concerns: No Exam 2 Narrative: GENERAL: Well-appearing, well-nourished, and in no acute distress. HEAD: Normocephalic, atraumatic. ENT: Mucous membranes moist. EXTREMITIES: Normal range of motion. No edema. Firm induration of the right buttock without significant bruising. SKIN: Warm, dry, no rash. NEURO: Alert and oriented x3. PSYCH: Normal mood and affect. Course Course Emergency Course: Patient informed of results. Discussed with General surgery. Okay to follow-up in clinic. Patient chronically anemic. Reports she cannot tolerate taking oral iron and has had to get iron infusions in the past. Recommend she follow-up with her PCP in regards to this. Vital Signs Vital signs: Vital Signs Temperature 97.4 F L 06/12/24 15:39 Pulse Rate 117 H 06/12/24 15:39 Respiratory Rate 18 06/12/24 15:39 Blood Pressure 104/72 06/12/24 15:39 Pulse Oximetry 100 06/12/24 15:39 Temperature 97.4 F L 06/12/24 15:39 Pulse Rate 91 06/12/24 19:58 Respiratory Rate 16 06/12/24 19:58 Blood Pressure 132/89 06/12/24 19:58 Pulse Oximetry 100 06/12/24 19:58 Medical Decision Making Vital Signs Vital Signs: Vital Signs Temperature 97.4 F L 06/12/24 15:39 Pulse Rate 117 H 06/12/24 15:39 Respiratory Rate 18 06/12/24 15:39 Blood Pressure 104/72 06/12/24 15:39 Pulse Oximetry 100 06/12/24 15:39 Temperature 97.4 F L 06/12/24 15:39 Pulse Rate 91 06/12/24 19:58 Respiratory Rate 16 06/12/24 19:58 Blood Pressure 132/89 06/12/24 19:58 Pulse Oximetry 100 06/12/24 19:58 Lab Data 06/12/24 16:31 06/12/24 16:31 Labs: Lab Results 06/12/24 06/12/24 06/12/24 Range/Units 16:31 16:34 16:58 WBC 4.4 L (4.5-10.0) K/mm3 RBC 3.32 L (4.2-5.4) M/mm3 Hgb 8.3 L (12.0-15.0) g/dL Hct 26.5 L (37.0-47.0) % MCV 79.8 L (80-100) fl MCH 25.0 L (26-34) pg MCHC 31.3 L (32-36) g/dl RDW 15.2 H (11.5-14.5) % Plt Count 300 (150-375) k/mm3 MPV 9.8 (7.4-10.4) fl Immature Gran % (Auto) 0.5 (0-0.5) % Neut % (Auto) 64.2 (45.5-73.1) % Lymph % (Auto) 25.6 (18.3-44.2) % Crisp % (Auto) 6.6 (2.6-8.5) % Eos % (Auto) 2.9 (0-4.4) % Baso % (Auto) 0.2 (0.2-1.2) % Lymph # (Auto) 1.13 (0.9-3.2) K/mm3 Crisp # (Auto) 0.3 (0.1-0.6) K/mm3 Eos # (Auto) 0.1 (0-0.3) K/mm3 Baso # (Auto) 0.0 (0.0-0.1) K/mm3 Abs Immat Gran (auto) 0.02 (0.00-0.031) K/mm3 Absolute Neuts (auto) 2.8 (1.3-6.7) K/mm3 Absolute Nucleated RBC 0.000 (0.0-0.012) K/mm3 Nucleated RBC % 0.0 (0.0-0.2) % Sodium 138 (137-145) mmol/L Potassium 3.1 L (3.4-5.0) mmol/L Chloride 105 (98-107) mmol/L Carbon Dioxide 23 (22-30) mmol/L Anion Gap 10 (4-12) mmol/L BUN 8 (7-17) mg/dL Creatinine 0.56 L (0.7-1.0) mg/dL Estim Creat Clear Calc 115 ml/min Estimated GFR > 60 (59 - ) Glucose 107 (65-110) mg/dL Calcium 9.3 (8.4-10.2) mg/dL Total Bilirubin 0.8 (0.2-1.3) mg/dL AST 53 H (14-36) U/L ALT 23 (6-35) U/L Alkaline Phosphatase 93 (38-126) U/L Total Protein 8.0 (6.3-8.2) g/dL Albumin 4.1 (3.5-5.1) g/dL Urine Color Yellow (Yellow) Urine Appearance Clear (Clear) Urine pH 6.0 (5.0-9.0) Ur Specific [place] 1.011 (1.001-1.035) Urine Protein Negative (Negative) mg/dL Urine Glucose (UA) Negative (Negative) mg/dL Urine Ketones Negative (Negative) mg/dL Ur Blood (Man) Negative (Negative) Urine Nitrate Positive H (Negative) Urine Bilirubin Negative (Negative) Urine Urobilinogen 0.2 (<2.0) mg/dL Leukocyte Esterase Rfl Trace H (Negative) TIFFANI/UL Urine RBC 0-2 (0-2) /hpf Urine WBC 11-20 H (0-3) /hpf Ur Squamous Epith Cells Occasional (Few) /hpf Urine Bacteria 4+ H /hpf Urine Casts 0-2 POC Urine HCG, Qual Negative (Negative) Imaging Data Radiologist's impression: ITS Impressions Pelvis CT 06/12/24 18:23 IMPRESSION: Large right buttock hematoma, as detailed above. Discharge Plan Discharge Clinical Impression: Hematoma of right buttock Patient Disposition: Home, Self-Care Condition: Stable Instructions: Hematoma (ED) Additional Instructions: Follow-up with general surgery for further evaluation. He may require drainage of this large hematoma of your buttock. Take Tylenol with hydrocodone for pain. Sit on a cushion to help with discomfort. Patient Language: [place] Zealander Prescriptions: New hydrocodone-acetaminophen 5-325 mg tablet 1 tablet PO Q6H PRN (Reason: pain) Qty: 14 0RF docusate sodium [Colace] 100 mg capsule 100 mg PO BID Qty: 14 0RF No Action quetiapine 25 mg tablet 50 mg PO PRN PRN (Reason: (Drug) Ingestion) lurasidone [Latuda] 40 mg tablet 40 mg DAILY lorazepam 1 mg tablet See Rx Instructions .ROUTE .COMPLEX Rx Instructions: Rx topiramate 25 mg tablet 25 mg PO BID levothyroxine 50 mcg tablet 50 mcg PO DAILY azathioprine 50 mg tablet 50 mg PO DAILY hydroxychloroquine 200 mg tablet 300 mg PO DAILY dextroamphetamine-amphetamine 30 mg capsule,extended release 24hr 10 mg PO DAILY ondansetron 4 mg tablet,disintegrating 4 mg PO Q8H PRN (Reason: nausea and vomiting) Qty: 10 0RF Probiotic 15 billion cell capsule 1 cap PO DAILY Qty: 30 0RF prazosin 1 mg capsule 1 mg PO DAILY Follow-up/Referrals: PHYSICIAN,[facility] INSTALLER [Non-Staff] - Tanvir Benz MD [Physician] - 3 Days
[2024-06-12] MEDS: HYDROcodone/acetaminophen (*CRX) 5-325 MG TABLET 1 TAB PO ×2 (16:26→19:57)
[2024-06-12 16:41] LABS: Basophils Percent Auto 0.2 % (0.2-1.2); Eosinophils Absolute Auto 0.1 K/mm3 (0-0.3); Eosinophils Percent Auto 2.9 % (0-4.4); Hematocrit 26.5 % (37.0-47.0); Hemoglobin 8.3 g/dL (12.0-15.0); Immature Granulocyte Absolute 0.02 K/mm3 (0.00-0.031); Immature Granulocyte Percent A 0.5 % (0-0.5); Lymphocytes Absolute Auto 1.13 K/mm3 (0.9-3.2); Lymphocytes Percent Auto 25.6 % (18.3-44.2); Mean Corpuscular HGB Conc 31.3 g/dl (32-36); Mean Corpuscular Volume 79.8 fl (80-100); Mean Platelet Volume 9.8 fl (7.4-10.4); Monocytes Absolute Auto 0.3 K/mm3 (0.1-0.6); Monocytes Percent Auto 6.6 % (2.6-8.5); Neutrophils Absolute Auto 2.8 K/mm3 (1.3-6.7); Neutrophils Percent Auto 64.2 % (45.5-73.1); Platelet Count Result 300 k/mm3 (150-375); Red Blood Count 3.32 M/mm3 (4.2-5.4); Red Cell Distribution Width 15.2 % (11.5-14.5); White Blood Count 4.4 K/mm3 (4.5-10.0)
[2024-06-12 16:53] LABS: Alanine Aminotransferase 23 U/L (6-35); Albumin Level 4.1 g/dL (3.5-5.1); Alkaline Phosphatase 93 U/L (38-126); Anion Gap 10 mmol/L (4-12); Aspartate Amino Transferase 53 U/L (14-36); Bilirubin,Total 0.8 mg/dL (0.2-1.3); Blood Urea Nitrogen 8 mg/dL (7-17); Calcium 9.3 mg/dL (8.4-10.2); Carbon Dioxide 23 mmol/L (22-30); Chloride 105 mmol/L (98-107); Estimated CRCL calculation 115 ml/min; Estimated Glomerular Filt Rate > 60; Glucose 107 mg/dL (65-110); Potassium 3.1 mmol/L (3.4-5.0); Sodium 138 mmol/L (137-145)
[2024-06-12 17:00] LABS: BEDSIDEPREGUCG Negative (Negative)
[2024-06-12 17:00] LABS: Add Urine Microscopic? YES; Appearance Urine Clear (Clear); Bacteria Urine 4+ /hpf; Bilirubin Urine Negative (Negative); Blood Urine Negative (Negative); Color Urine Yellow (Yellow); Glucose Urine UA Negative (Negative); Ketones Urine Negative (Negative); Leukocyte Esterase Ur Trace LEU/UL (Negative); Nitrate Urine Positive (Negative); Non Pathogenic Casts 0-2; Protein Urine Negative (Negative); RBC Urine 0-2 /hpf (0-2); Specific Grav Ur 1.011 (1.001-1.035); Squamous Epithelial Cell Urine Occasional /hpf (Few); Urobilinogen Urine 0.2 mg/dL (<2.0)
--- OUTSIDE RECORDS SUMMARY | 2024-06-12 17:15 | XMS_ITS | Encounter Summary ---
Author Organization [facility] Health Address [address] [place] [address] Care Team Providers Care Emergency Management Program Specialist Name Role Phone Aurea Lott DO Primary Care Provider [phone] Jim Moreland MD Unavailable [phone] Encounter Details Date Type Department Care Team (Latest Contact Info) Description 06/11/2024 Travel Social History Tobacco Use Types Packs/Day Years Used Date Smoking Tobacco: Never Smokeless Tobacco: Never Comments:Tried a few times, less than 1 pack Alcohol Use Standard Drinks/Week Comments Yes 0 (1 standard drink = 0.6 oz pur e alcohol) monthly 5 drinks AUDIT-C Answer Date Recorded Q1: How often do you have a drink containing alc ohol? Never 02/01/2022 Average Number of Drinks Not on file 022 Frequency of Binge Drinking Not on file 01/09 PHQ-2 Answer Date Recorded Patient Health Questionnaire-2 Score 2 01/01/2024 Education Answer Date Recorded What is the highest level of school you have completed or the highest degree you have received? Some college, no degree 05/11/2022 Sex and Gender Information Value Date Recorded Sex Assigned at Female 07/13/2021 8:56 AM CDT Gender Identity Female 07/13/2021 8:56 AM CDT Sexual Orientation Bisexual 07/13/2021 8: 56 AM CDT documented as of this encounter Functional Status Functional Status Response Date of Assess ment Is person deaf or have serious hearing difficult y? No 02/01/2022 Is person blind or have serious difficulty seein g? No 02/01/2022 Does person have serious dif ficulty walking/climbing stairs? No 02/01/2022 Does person have difficulty dressing/bathing? No 02/01/2022 Does person have difficulty doing errands alone? No 02/01/2022 Cognitive Status Response Date of Assessm ent Does person have difficulty concentrating/remembering/making decisions? No 02/01/2022 documented as of this encounter Plan of Treatment Upcoming Encounters Date Type Department Care Team (Late st Contact Info) Description 06/13/2024 8:30 AM THREAD TRIMMER Office Visit [facility] - Internal Med [address] [place] [phone] 11/12/2024 10:20 AM CDT Office Visit [facility] - Internal Med [address] [place] [phone] Aurea Lott DO [address] [facility] [address] [place] [phone] documented as of this encounter Visit Diagnoses Not on filedocumented in this encounter Care Teams Emergency Management Program Specialist Relationship Specialty Start Date End Date Aurea Lott DO [address] [facility] [address] [place] [address] PCP - General 10/14/21 Jim Moreland MD [address] [place] [address] Resident - PCP Internal Medicine 10/14/21 documented as of this encounter
--- OUTSIDE RECORDS SUMMARY | 2024-06-12 17:15 | XMS_ITS | Data Portability ---
Author Organization [facility], [facility] Address [address] [place] [address] Assessment No assessment recorded. Plan of Treatment Reminders Order Date Submit Date Provider Last Modified By Organization Details Last Modified Time Details Appointments None record ed. Lab None record ed. Referral None record ed. Procedures None record ed. Surgeries None record ed. Imaging None record ed. Medication Orders None record ed. Patient TargetsNo targets recorded. Patient InstructionsNo instructions recorded. Reason for Referral None Reported. Problems Name Problem SNOMED Code Status Onset Date Resolution Date Notes Provider Name and Address Organization Details Recorded Time Depressive disorder 81433995 [facility] Anxiety 40915224 Active 2021 [facility] 14:[facility]11 Attention deficit hyperactivity disorder 257796053 Active 2021 [facility] 2 14:53:18 Lupus erythematosus 611636831 Active 2021 [facility] 2 14:53:29 Insomnia 572555484 Active 2021 [facility] 14:53:40 Problem Notes None recorded. Procedures Surgical History Date Name Laterality Status Provider Name and Address Organization Details Recorded Time 2 [id number] reporting statement for [facility] completed Susiekerri Hawthornekaitlyn [facility] 03/21/2022 09:11:03 2 HOLD CODE: TELE completed Susiekerri Segovia [facility] 03/21/2022 09:11:03 1 Date of Last Pap Smear completed Susie Segovia [facility] 03/21/2022 14:54:07 section completed [facility] 03/21/2022 14:55:55 Gallbladder Surgery completed [facility] 03/21/2022 14:56:08 Imaging Results None recorded. Procedure Notes None recorded. Medical Equipment None Reported. Allergies Allergen ID Allergen Name Allergen Category Reaction Reaction Severity Criticality Documentation Date Start Date Code Code System Note Provider Name and Address Organization Details Recorded Time 259264 amoxicill in medicatio n itching rash Not available Not available Not available 03/21/2022 723 [facility] 2 14:50:31 092278 Product containin g penicilli n (product) medicatio n itching rash Not available Not available Not available 03/21/2022 76603 8001 SNOMED [facility] 2 14:50:31 Medications Name Sig Start Date Stop Date Status Note LastModified by Organization Details LastModified Time cyclobenzaprin e 10 mg tablet TAKE 1 TABLET BY MOUTH TWICE DAILY active Not Available Not Available No t Available buspirone 5 mg tablet TAKE 1 TABLET BY MOUTH TWICE DAILY active Not Available Not Available No t Available doxycycline hyclate 100 mg capsule active Not Available Not Available Not Available clindamycin HCl 300 mg capsule TAKE 1 CAPSULE BY MOUTH THREE TIMES DAILY active Not Available Not Available No t Available hydrocodone 5 mg-acetaminoph en 325 mg tablet TAKE 1 TABLET BY MOUTH EVERY 6 HOURS NEEDED FOR PAIN active Not Available Not Available No t Available ondansetron HCl 4 mg tablet active Not Available Not Available Not Available clonazepam 0.5 mg tablet TAKE 1 TABLET BY MOUTH TWICE DAILY NEEDED FOR ANXIETY active Not Available Not Available No t Available sertraline 100 mg tablet TAKE 1 TABLET BY MOUTH EVERY DAY active Not Available Not Available No t Available azathioprine 50 mg tablet TAKE 1 TABLET BY MOUTH EVERY DAY active Not Available Not Available No t Available tramadol 50 mg tablet TAKE 1 TABLET BY MOUTH EVERY 8 HOURS NEEDED active Not Available Not Available No t Available ketorolac 10 mg tablet active Not Available Not Available No t Available meloxicam 7.5 mg tablet TAKE 2 TABLETS BY MOUTH EVERY DAY active Not Available Not Available No t Available oxycodone-acet aminophen 5 mg-325 mg tablet TAKE 1-2 TABLETS BY MOUTH EVERY 6 HOURS NEEDED FOR PAIN. active Not Available Not Available No t Available gentamicin 0.3 % eye drops active Not Available Not Available Not Available dextroamphetam ine-amphetamin e ER 20 mg 24hr capsule,extend release TAKE 1 CAPSULE BY MOUTH IN THE MORNING active Not Available Not Available No t Available dicyclomine 20 mg tablet TAKE 1 TABLET BY MOUTH THREE TIMES DAILY active Not Available Not Available No t Available cephalexin 500 mg capsule active Not Available Not Available N ot Available lidocaine 5 % topical patch PLACE 1 PATCH ONTO THE SKIN DAILY FOR 30 DAYS REMOVE AND DISCARD PATCH WITHIN 12 HOURS OR DIRECTED BY MD active Not Available Not Available No t Available hydroxyzine HCl 25 mg tablet TAKE 1 TABLET BY MOUTH FOUR TIMES DAILY NEEDED FOR ITCHING active Not Available Not Available No t Available hydroxychloroq uine 200 mg tablet TAKE 1 & 1/2 (ONE & ONE-HALF) TABLETS BY MOUTH ONCE DAILY active Not Available Not Available No t Available ibuprofen 600 mg tablet TAKE 1 TABLET BY MOUTH EVERY 6 HOURS NEEDED FOR PAIN active Not Available Not Available No t Available dextroamphetam ine-amphetamin e ER 30 mg 24hr capsule,extend release TAKE 1 CAPSULE BY MOUTH IN THE MORNING active Not Available Not Available No t Available doxycycline hyclate 100 mg tablet TAKE 1 TABLET BY MOUTH TWICE DAILY FOR 7 DAYS active Not Available Not Available No t Available naproxen 500 mg tablet TAKE 1 TABLET BY MOUTH TWICE DAILY active Not Available Not Available No t Available Adderall 10 mg tablet Take 1 tablet every day by oral route. active Not Available Not Available No t Available oxycodone 5 mg tablet active Not Available Not Available Not Available aripiprazole 10 mg tablet TAKE 1 TABLET BY MOUTH DAILY active Not Available Not Available No t Available aripiprazole 5 mg tablet TAKE 1 TABLET BY MOUTH ONCE DAILY active Not Available Not Available No t Available nitrofurantoin monohydrate/ma crocrystals 100 mg capsule TAKE 1 CAPSULE BY MOUTH EVERY 12 HOURS FOR 10 DAYS active Not Available Not Available No t Available eszopiclone 2 mg tablet TAKE 1 TABLET BY MOUTH EVERY DAY AT BEDTIME active Not Available Not Available No t Available eszopiclone 1 mg tablet TAKE 1 TABLET BY MOUTH ONCE DAILY AT BEDTIME active Not Available Not Available No t Available aripiprazole 2 mg tablet TAKE 1 TABLET BY MOUTH AT BEDTIME active Not Available Not Available No t Available Vitals Date Recorded Body height Body mass index (BMI) Body weight Heart rate Provider Name and Address Organization Details Last Updated DateTime 03/21/2022 154.94 cm 24.6 kg/m2 31043.01 g 86 /min Susie Hawthornekaitlyn [facility] 03/21/2022 14:50:08 Social History Question Answer Notes LastModified by Organizat ion Details LastModified Time Tobacco Smoking Status Never Smoker Susie Segovia maikel [facility] 03/21/2022 14:50:33 Do You Have An Advance Directive? No Information not available 03/21/2022 What Is Your Level Of Alcohol Consumption? Occasional Information not available 03/21/2022 Are You Currently Employed? No Information not available 03/21/2022 What Type Of Diet Are You Following? REGULAR Information not available 03/21/2022 What Is The Highest Grade Or Level Of School You Have Completed Or The Highest Degree You Have Received? [id number] Information not available 03/21/2022 How Many Days Of Moderate To Strenuous Exercise, Like A Brisk Walk, Did You Do In The Last 7 Days? 1 Information not available 03/21/2022 Have You Had An Unplanned Hospital Admission In The Last Year? No Information not available 03/21/2022 Have You Had An Unplanned Hospital Admission In The Last 30 Days? No Information not available 03/21/2022 Have You Had An ER Visit Since You Were Last Seen? No Information not available 03/21/2022 Do You Have A Medical Power Of Anthropology Instructor? Yes Information not available 03/21/2022 How Many Children Do You Have? 2 Information not available 03/21/2022 Do You Use Protection During Sex? No Information not available 03/21/2022 What Is Your Relationship Status? Information not available 03/21/2022 Do You Use Your Seat Belt Or Car Seat Routinely? Yes Information not available 03/21/2022 Are You Sexually Active? Yes Information not available 03/21/2022 Are There Any Smokers In Your House? No Information not available 03/21/2022 Do You Feel Stressed (tense, Restless, Nervous, Or Anxious, Or Unable To Sleep At Night)? [id number] Information not available 03/21/2022 Do You Use Any Illicit Or Recreational Drugs? Yes Information not available 03/21/2022 Do You Use Sunscreen Routinely? No Information not available 03/21/2022 How Many Days In The Past Year Have You Consumed 4 Or More Drinks? 7 Information no t available 03/21/2022 Sex: Unknown Functional Status None recorded. Mental Status None recorded. Family History Relationship Description Onset Age of this Age Resolved Age Notes LastModified by Organization Details LastModified Time Maternal Grandmother Diabetes mellitus ebole Not available 2021 14:50:32 Maternal Grandmother Arthritis ebole Not available 03/10 14:50:32 Paternal Grandfather Arthritis ebole Not available 03/10 14:50:32 Father Diabetes mellitus ebole Not available 2021 14:50:32 Father Obesity ebole Not available 14:50:32 Mother BRCA2 mutation carrier detection test ebole Not available 2021 14:50:32 Mother Mental disorder ebole Not available 2021 14:50:32 Maternal Grandfather Arthritis ebole Not available 03/10 14:50:32 Brother Anxiety disorder ebole Not available 2021 14:50:32 Paternal Grandmother Heart disease ebole Not available 2021 14:50:32 Paternal Grandmother Arthritis ebole Not available 03/10 14:50:32 Medical History Condition Response Muscle, Joint, or Bone Problems Y Autoimmune Disorders Y Anemia Y Vision or Eye Problems Y Kidney Disease/Disorder Y Bipolar Disorder Y Seizures/Epilepsy Y Anxiety Y Blood Clot (DVT/PE) Y Depression Y Gynecological History Statement/Question Response Abnormal Pap N Date of LMP 03/14/2022 Sexually Active? Y Breast Lump or Nipple Discharge N STIs/STDs N HPV Vaccine N Date of Last Pap Smear 05/11/2020 Bleeding Between Periods N Sexual Problems? N Current Control Method IUD Hormone Replacement Therapy N Obstetrics History GPAL:G 2 P 0 0 0 2 Type Value Living 2 Total 2 Past Encounters Encounter ID Performer Location Encounter Start Date Encounter Closed Date Diagnosis/Indication Diagnosis SNOMED-CT Code Diagnosis ICD10 Code Diagnosis Note [id number] Zayda Mike _[place] [address] [place] [address] 03/21/2022 14:47:21 03/21/2022 16:00:52 Depression screening positive [id number] 90912 R45.89 Z13.31 Depression screening positive. No suicidal or homicidal thoughts. 1. Medication Plan: {{medicati on therapy initiated NO changes* m edications adjusted n o medication needed at this time patie nt refused medication therapy - all risks outlined.} }.2. Follow up Plan: {{follow up NOT INDICATED at this time. rehan ent DECLINED F/U visit. pt will schedule follow-up with PcP pt will schedule an [facility]men t with [facility] p t will schedule an appointmen t with [facility] and follow up with her psychiatri st. #}}.3. All treatment plan options discussed with patient including medication s, counsellin g, and specialist referral.4 . Patient was advised to call office if symptoms worsen.5. Patient verbalized understand ing. Long discussion with patient on seeking immediate help and calling 911 if she has suicidal thoughts. Patient will be following up with her psychiatri st for resources near her for a therapist. Body mass index 20-24 - normal 441094863 Z68.24 Patient ne w to provider [id number] 41293 Z76.89 Health Concerns Section Related Observation LastModified by Organization Detai ls LastModified Time None Recorded Concern Status LastModified by Organization Details LastModified Time None Recorded Advance Directives Directive N: Payers Encounter Date Sequence Insurance Name Policy Number Policy Barfield Covered Member ID Barfield Member ID Guarantor Name 03/21/2022 1 [facility] (MEDICARE REPLACEMENT/ ADVANTAGE - HMO) Thalia Steele [id number] Thalia Steele Notes Date Note Type Note Provider Name and Address Organization Details Recorded Time 03/21/2022 text/html I confirm that I received verbal consent from the patient for the virtual visit. This telemedicine encounter was performed with video enabled for full/partial visit. Location of the Patient: {{home* other:}}Loc ation of the Provider: {{office* home}}Nam es of people participating in the visit: The patient's blood pressure was self-reported by using a digitally automated BP cuff. {{Yes No*}} 31 y/o female a new patient being seen via televisit. The patient made the appointment on [employer] and thought I was a behavioral therapist. She has an established PCP and psychiatrist [facility] in [facility] that she follows regularly. She wanted to be seen for worsening depression. She has an appointment with her psychiatrist in a few weeks but they are trying to get her in sooner. She denies SI/HI at this time but did have thoughts without a plan 1 week ago. Patient states she is safe currently and support around her. ADIEL [facility]/ADIEL 03/22/2022 12:45:51 OBGyn Episode No OBEpisode recorded.
--- OUTSIDE RECORDS SUMMARY | 2024-06-12 17:15 | XMS_ITS | Encounter Summary ---
Author Organization [facility] Address [address] [place] [address] Care Team Providers Care Director [employer] Name Role Phone Estephania Moise APRN-MANAGER MEDICAL Primary Care Provider Aurea Lott DO Primary Care Provider Jim Moreland MD Unavailable [phone] Reason for Visit * Reason Onset Date Comments POST COMPLICATIONS 10/09/2017 post p artum depression symptoms Encounter Details Date Type Department Care Team (Late st Contact Info) Description 10/09/2017 Nurse Triage [facility] General Internal Medicine [address] [facility] [address] [place] [address] Estephania Moise APRN-CNP [address] OF [facility] [place] [address] POST COMPLICATIONS (post depression symptoms ) Social History Tobacco Use Types Packs/Day Years Used Date Smoking Tobacco: Never Smokeless Tobacco: Never Alcohol Use Standard Drinks/Week Comments No 0 (1 standard drink = 0.6 oz pur e alcohol) Sex and Gender Information Value Date Recorded Sex Assigned at Female 07/13/2021 8:56 AM CDT Gender Identity Female 07/13/2021 8:56 AM CDT Sexual Orientation Bisexual 07/13/2021 8: 56 AM CDT documented as of this encounter Functional Status Functional Status Response Date of Assess ment Is person deaf or have serious hearing difficult y? No 09/27/2017 Is person blind or have serious difficulty seein g? No 09/27/2017 Does person have serious dif ficulty walking/climbing stairs? No 09/27/2017 Does person have difficulty dressing/bathing? No 09/27/2017 Does person have difficulty doing errands alone? No 09/27/2017 Cognitive Status Response Date of Assessm ent Does person have difficulty concentrating/remembering/making decisions? No 09/27/2017 documented as of this encounter Miscellaneous Notes * Telephone Encounter - Thalia Peng - 10/09/2017 1:02 PM CDT Patient reports that she is having increased episodes of sadness and finds herself crying for no reason. Patient reports HX of depression and patient just gave on September 29, 2017. Patient denies any thoughts or feelings of harming herself, the baby or anyone else at this time. Patient reports that she is also experiencing difficulty with ADL's and does not have the desire tocomplete ADL s for herself. Patient reports that she does not have a therapist and attempted to provide patient with suicide hotline and resources and patient verbalized that she has the those number handy. Care advice provided, patient verbalized understanding. Scheduled 10-10-17 @ 2:00 with DISASTER OR DAMAGE CONTROL SPECIALIST Scheduled 10-10-17 @ 9:20am [facility] Reason for Disposition Depression symptoms occurring > 1 month after delivery Answer Assessment - Initial Assessment Questions 1. CONCERN: What happened that made you call today? Patient reports that she is experiencing post depression. Patient reports that she has a HX of depression patient has increased episodes of crying. 2. DEPRESSION SYMPTOM SCREENING: How are you feeling overall? (e.g., decreased energy, increased sleeping or difficulty sleeping, difficulty concentrating, feelings of sadness, guilt, hopelessness,or worthlessness; problems caring for baby) Patient reports that she is having decreased energy and feeling sadness. 3. RISK OF HARM - SUICIDAL IDEATION: Do you ever have thoughts of hurting yourself or the baby? (e.g., yes, no; details). - INTENT: Do you have thoughts of hurting yourself or the baby right NOW? (e.g., yes, no, N/A) - PLAN: Do you have a specific plan for how you would do this? (e.g., gun, knife, overdose, no plan, N/A) Patient denies feeling of harming herself or anyone else at this time. 4. RISK OF HARM - HOMICIDAL IDEATION: Do you ever have thoughts of hurting or killing someone else? (e.g., yes, no, no but preoccupation with thoughts about ) - INTENT: Do you have thoughts of hurting or killing someone right NOW? (e.g., yes, no, N/A) - PLAN: Do you have a specific plan for how you would do this? (e.g., gun, knife, no plan, N/A) Patient denies at this time. 5. FUNCTIONAL IMPAIRMENT: How have things been going for you overall in your life? Have you had any more difficulties than usual doing your normal daily activities? (e.g., better, same, worse; self-care, school, work, interactions) Patient reports that its harder for her to do her normal acitvities don't have the want to do normal activities 6. SUPPORT: Who is with you now? Who do you live with? Do you have family or friends nearby who you can talk to? Patient reports that she has good support sym stem at home. 7. THERAPIST: Do you have a counselor or therapist? Name? Patient denies a this time. 8. STRESSORS: Has there been any new stress or recent changes in your life? Patient denies at this time. 9. DRUG ABUSE/ALCOHOL: Do you drink alcohol or use any illegal drugs? Patient denies at this time. 10. OTHER: Do you have any other health or medical symptoms right now? (e.g., fever) Patient denies at this time. 11. DELIVERY DATE: When was your delivery date? Patient reports September 29 Protocols used: - [id number] Disposition provided to be seen in acute care clinic within 3 days per protocol. Patient warm transfered to [facility] scheduling team for assistance with scheduling an appointment..If anything new develops,if anything gets worse or if you become increasingly concerned for any reason, please seek out immediate medical Attention. documented in this encounter Plan of Treatment Upcoming Encounters Date Type Department Care Team (Late st Contact Info) Description 06/13/2024 8:30 AM MATERIAL MANAGER Office Visit [facility] - Internal Med [address] [place] [address], [place] [address] 11/12/2024 10:20 AM CDT Office Visit [facility] - Internal Med [address] [place] [phone] Aurea Lott DO [address] [facility] [address] OF [facility] [place] [address] documented as of this encounter Visit Diagnoses Not on filedocumented in this encounter Care Teams Director [employer] Relationship Specialty Start Date End Date Estephania Moise, HUMAN RESOURCES MANAGER-MANAGER MEDICAL [address] [place] [address] PCP - General 08/15/17 10/13/21 Aurea Lott DO [address] [facility] [address] [address] PCP - General 10/14/21 Jim Moreland MD [address] [facility] [place] [address] Resident - PCP Internal Medicine 10/14/21 documented as of this encounter
--- OUTSIDE RECORDS SUMMARY | 2024-06-12 17:16 | XMS_ITS | Encounter Summary ---
Author Organization [facility] Address [address] [place] [address] Care Team Providers Care Manager Corporate Responsibility Name Role Phone Estephania Moise APRN-CRYSTAL MOUNTER Primary Care Provider Aurea Lott DO Primary Care Provider [phone] Jim Moreland MD Unavailable [phone] Encounter Details Date Type Department Care Team (Late st Contact Info) Description 01/23/2018 Telephone [facility] Internal Medicine [address] [facility] [address] [place] [address] Estephania Moise APRN-CRYSTAL MOUNTER [address] [facility] [place] [address] Social History Tobacco Use Types Packs/Day Years [...] encounter Miscellaneous Notes * Telephone Encounter - Xochitl Regalado RN - 01/23/2018 9:57 AM CDT Encounter created in error. documented in this encounter Plan of Treatment Upcoming Encounters Date Type Department Care Team (Late st Contact Info) Description 06/13/2024 8:30 AM CAFE COOK Office Visit [facility] - Internal Med [address] [place] [phone] 11/12/2024 10:20 AM CDT Office Visit [facility] - Internal Med [address] [place] [phone] Aurea Lott DO [address] [facility] [address] [place] [address] documented as of this encounter Visit Diagnoses Not on filedocumented in this encounter Care Teams Manager Corporate Responsibility Relationship Specialty Start Date End Date Estephania Moise, WAXER TENDER-CRYSTAL MOUNTER [address] [place] [address] PCP - General 08/15/17 10/13/21 Aurea Lott DO [address] [facility] [address] [place] [address] PCP - General 10/14/21 Jim Moreland MD [address] [place] [address] Resident - PCP Internal Medicine 10/14/21 documented as of this encounter
--- OUTSIDE RECORDS SUMMARY | 2024-06-12 17:16 | XMS_ITS | Encounter Summary ---
Author Organization [facility] Health Address [address] [place] [address] Care Team Providers Care Ironworker Name Role Phone Aurea Lott DO Primary Care Provider Jim Moreland MD Unavailable [phone] Reason for Visit * Reason Onset Date Comments Question 10/18/2021 Encounter Details Date Type Department Care Team (Late st Contact Info) Description 10/18/2021 Telephone [facility] [address] [place] [id number] Kimberly Balbuena MD [address] [place] [address] Question Social History Tobacco Use Types Packs/Day Years Used Date Smoking Tobacco: Former Smokeless Tobacco: Never Alcohol Use Standard Drinks/Week Comments Not Currently 0 (1 standard drink = 0.6 oz pur e alcohol) twice a month AUDIT-C Answer Date Recorded Q1: How often do you have a drink containing alc ohol? Never 10/15/2021 Q2: How many drinks containi ng alcohol do you have on a typical day when you are drinking? 1 or 2 10/15/2021 Q3: How often do you have six or more drinks on one occasion? Never 10/15/2021 PHQ-2 Answer Date Recorded PHQ2 TOTAL SCORE 6 09/16/2021 Sex and Gender Information Value Date Recorded Sex Assigned at Female 07/13/2021 8:56 AM CDT Gender Identity Female 07/13/2021 8:56 AM CDT Sexual Orientation Bisexual 07/13/2021 8: 56 AM CDT documented as of this encounter Functional Status Functional Status Response Date of Assess ment Is person deaf or have serious hearing difficult y? No 12/12/2020 Is person blind or have serious difficulty seein g? No 12/12/2020 Does person have serious dif ficulty walking/climbing stairs? No 12/12/2020 Does person have difficulty dressing/bathing? No 12/12/2020 Does person have difficulty doing errands alone? No 12/12/2020 Cognitive Status Response Date of Assessm ent Does person have difficulty concentrating/remembering/making decisions? No 12/12/2020 documented as of this encounter Miscellaneous Notes * Telephone Encounter - Kimberly Balbuena MD - 10/19/2021 2:49 PM CDT See detailed mychart message. * Telephone Encounter - Neha Yadav RN - 10/18/2021 3:41 PM CDT RN returned call to pt. Pt was seen in ER on 10/16/21 for pelvic and back pain. CT done results for pelvis Pelvic Structures: Irregular cystic lesion with hyperenhancing thick gaona in the right pelvis (series 6 image 123), most likely represents a corpus luteum cyst. Small volume of free pelvic fluid is likely physiologic. Pt would like a f/u appt and US. RN does not see any open appts. Will send to MD to advise RN gave bleeding and pain precautions ?? * Telephone Encounter - Kim Cole - 10/18/2021 1:29 PM CDT Pt in ER on Fri and with kidney and ovarian pain (er did not look at ovaries) and she wants to comein and have a US to just check on things. Please contact CB# [phone] documented in this encounter Plan of Treatment Upcoming Encounters Date Type Department Care Team (Late st Contact Info) Description 06/13/2024 8:30 AM GENERAL OFFICE CLERK Office Visit [facility] - Internal Med [address] [place] [address], [place] [address] 11/12/2024 10:20 AM CDT Office Visit [facility] - Internal Med [address] [place] [address], [place] [address] [place] [address] [place] [address] [address] [facility] [place] [address] documented as of this encounter Visit Diagnoses Not on filedocumented in this encounter Care Teams Ironworker Relationship Specialty Start [place] [address] [place] [address] [address] [place] [address] PCP - General 10/14/21 Jim Moreland MD [address] [facility] [place] [address] Resident - PCP Internal Medicine 10/14/21 documented as of this encounter
--- OUTSIDE RECORDS SUMMARY | 2024-06-12 17:16 | XMS_ITS | Patient Health Summary ---
Author Organization [facility] Address [address] [place] [address] Care Team Providers Care Laboratory [facility] Name Role Phone Aurea Lott DO Primary Care Provider [phone] Jim Moreland MD Unavailable [phone] Note from [facility],non-owned Affiliates and Associated Physician Practices is amultiple site organization consisting of ambulatory clinics and hospital sitesin [place], [place], [place] and [place]. This disclosure is being madepursuant to the Care Everywhere program and may not contain all information available regarding this patient. Last updated 17.[facility] Allergies * Amoxicillin(Urticaria) -Medium Criticality * Sulfamethoxazole W-Trimethoprim(LEVEL VIAL MARKER Dysfunction) * Iron(Vomiting) * Lamotrigine(Itching) * Penicillins(Urticaria,Unknown) -Medium Criticality * Metoclopramide(LEVEL VIAL MARKER Dysfunction) * Azathioprine(Urticaria) -Medium Criticality,Inactive Medications * Be aware that medications may not be up to date on this document. Alwaysverify current medications with the patient. * hydroxychloroquine (Plaquenil) 200 MG tablet(Started 12/21/2021) Take 1.5 (one and one-half) tablets by mouth once daily 5 refills by 12/21/2022 * famotidine (Pepcid) 20 MG tablet(Started 04/18/2022) Take 1 (one) tablet by mouth every 12 hours * diphenhydrAMINE (Benadryl) 25 MG capsule(Started 04/18/2022) Take 1 (one) capsule by mouth every 4 hours as needed for Itching * methocarbamol (Robaxin) 500 MG tablet(Started 04/19/2022) Take 1 (one) tablet by mouth every 6 hours as needed for Muscle Spasms * topiramate (Topamax) 25 MG tablet(Started 05/16/2022) Take 1 (one) tablet by mouth 2 times daily 11 refills by 05/16/2023 * rizatriptan (Maxalt) 5 MG tablet(Started 05/16/2022) Take 1 tab by mouth once at first sign of migraine. May repeat one time after 2 hours if needed. 11 refills by 05/16/2023 * levothyroxine (Synthroid) 50 MCG tablet(Started 10/13/2022) Take 1 (one) tablet by mouth once daily 4 refills by 10/13/2023 * azaTHIOprine (Imuran) 50 MG tablet(Started 11/23/2022) Take 1 (one) tablet by mouth 2 times daily * gabapentin (Neurontin) 100 MG capsule(Started 12/13/2022) Take 1 (one) capsule by mouth at bedtime 2 refills by 12/13/2023 * amphetamine-dextroamphetamine XR 24hr (Adderall XR) 30 MG capsule(Started 06/10/2024) Take 1 (one) capsule by mouth once daily for 30 days Reasons: Attention Deficit Hyperactivity Disorder * amphetamine-dextroamphetamine XR 24hr (Adderall XR) 30 MG capsule(Started 07/10/2024) Take 1 (one) capsule by mouth once daily for 30 days Reasons: Attention Deficit Hyperactivity Disorder * amphetamine-dextroamphetamine XR 24hr (Adderall XR) 30 MG capsule(Started 08/09/2024) Take 1 (one) capsule by mouth once daily Reasons: Attention Deficit Hyperactivity Disorder * amphetamine-dextroamphetamine (Adderall) 10 MG tablet(Started 06/10/2024) Take 1 (one) tablet by mouth once daily as needed Reasons: Attention Deficit Hyperactivity Disorder * amphetamine-dextroamphetamine (Adderall) 10 MG tablet(Started 07/10/2024) Take 1 (one) tablet by mouth once daily as needed Reasons: Attention Deficit Hyperactivity Disorder * amphetamine-dextroamphetamine (Adderall) 10 MG tablet(Started 08/04/2024) Take 1 (one) tablet by mouth once daily as needed Reasons: Attention Deficit Hyperactivity Disorder * QUEtiapine (SEROquel) 50 MG tablet(Started 06/10/2024) Take 1 (one) tablet by mouth at bedtime 1 refill by 06/10/2025 Ended Medications* amphetamine-dextroamphetamine XR 24hr (Adderall XR) 30 MG capsule(Started 02/03/2023)(Discontinued) Take 1 (one) capsule by mouth once daily * amphetamine-dextroamphetamine (Adderall) 10 MG tablet(Started 01/23/2023) (Discontinued) Take 1 (one) tablet by mouth once daily after lunch * amphetamine-dextroamphetamine XR 24hr (Adderall XR) 30 MG capsule(Started 06/26/2023)(Discontinued) Take 1 (one) capsule by mouth once daily * amphetamine-dextroamphetamine (Adderall) 10 MG tablet(Started 06/26/2023) (Discontinued) Take 1 (one) tablet by mouth once daily after lunch * amphetamine-dextroamphetamine XR 24hr (Adderall XR) 30 MG capsule(Started 10/23/2023)(Discontinued) Take 1 (one) capsule by mouth once daily * amphetamine-dextroamphetamine (Adderall) 10 MG tablet(Started 10/23/2023) (Discontinued) Take 1 (one) tablet by mouth once daily as needed * QUEtiapine (SEROquel) 50 MG tablet(Started 01/01/2024)(Discontinued) Take 1 (one) tablet by mouth at bedtime 1 refill by 12/31/2024 * amphetamine-dextroamphetamine (Adderall) 10 MG tablet(Started 05/07/2024) () Take 1 (one) tablet by mouth once daily as needed Reasons: Attention Deficit Hyperactivity Disorder * amphetamine-dextroamphetamine XR 24hr (Adderall XR) 30 MG capsule(Started 05/07/2024)(Discontinued) Take 1 (one) capsule by mouth once daily Reasons: Attention Deficit Hyperactivity Disorder Active Problems Problem Noted Date Diagnosed Date PTSD (post-traumatic stress disorder) 08/29/2023 Hypothyroidism, acquired 10/13/2022 Antiphospholipid syndrome 05/11/2022 Bipolar 2 disorder 11/10/2021 Panic attack 11/10/2021 Normocytic anemia 11/10/2021 Other chronic pain 11/10/2021 Systemic lupus erythematosus with lung involvement, unspecified SLE type 09/16/2021 Nausea and vomiting 11/20/2020 Iron deficiency anemia during 10/21/19 21 Warm reactive antibody 09/25/2020 Transaminitis 06/22/2020 Migraine without aura or status migrainosus 07/09 Necrotizing pancreatitis 08/09/2017 SSA antibodies 08/09/2017 Restrictive lung disease 08/09/2017 History of pulmonary embolism 08/09/2017 Anxiety 07/31/2017 half-way current use of immunosuppressive drug 07/31/2017 SLE (systemic lupus erythematosus) 12/06/2012 Resolved Problems Problem Noted Date Diagnosed Date Resolved Date Recurrent major depressive d isorder, in remission 09/05/2017 08/29/2023 Immunizations * INFLUENZA VACCINE, TRIV. (AFLURIA, FLUZONE TRIVALENT; 6MO+) (IIV3)(Given 01/15/2013) * Covid Pfizer primary monovalent 12+ yr 0.3mL Purple cap(Given 09/09/2020, 08/19/2020) * DTP HIB, HISTORIC VACCINE(Given 08/26/1993) * FLU VACCINE TRI IIV3 SPLIT PF IM (FLUVIRIN)(Given 05/10/2016) * Human Papilloma Virus Ninevalent Vaccine(Given 01/17/2018) * INFLUENZA VACCINE(Given 04/13/2021) * INFLUENZA VACCINE, CELL CULTURE, QUADR. (FLUCELVAX QUADRIVALENT; 6MO+) (CCIIV4)(Given 11/22/2016) * INFLUENZA VACCINE, QUADR. (FLUZONE; FLULAVAL; FLUARIX; AFLURIA QUADRIVALENT; 6MO+), 0.5 ML (IIV4)(Given 01/16/2021, 12/02/2017) * MMR(Given 12/09/2020, 05/27/1993) * PNEUMOCOCCAL PCV20 CONJ VAC IM(Given 11/10/2021) * PNEUMOCOCCAL PPSV23(Given 12/23/2012) * POLIO OPV(Given 05/27/1993) * TDAP (7yrs+)(Given 10/20/2020, 08/23/2017) Social History Tobacco Use Types Packs/Day Years Used Date Smoking Tobacco: Never Smokeless Tobacco: Never Tobacco Cessation:Counseling Given: Not Answered Comments:Tried a few times, less than 1 [...] Orientation Bisexual 07/13/2021 8: 56 AM CDT Last Filed Vital Signs Vital Sign Reading Time Taken Comments Blood Pressure 101/64 01/01/2024 3:28 PM CDT Pulse 79 01/01/2024 3:28 PM CDT Temperature 37.1 C (98.7 F) 11/23/2022 3:13 PM CDT Respiratory Rate 18 10/13/2022 9:58 AM CDT Oxygen Saturation 99% 11/23/2022 3:13 PM CDT Inhaled Oxygen Concentration - - Weight 77.6 kg (171 lb) 01/01/2024 3:28 PM CDT Height 154.9 cm (5' 1 ) 01/01/2024 3:28 PM CDT Body Mass Index 32.31 01/01/2024 3:28 PM CDT Procedures * CT CHEST WO CONT AND HIRES(Performed 11/02/2022) Performed for ILD (interstitial lung disease) (HCC) * T4 FREE(Performed 10/15/2022) Performed for Hypothyroidism, acquired * TSH(Performed 10/15/2022) Performed for Hypothyroidism, acquired * C-REACTIVE PROTEIN(Performed 10/15/2022) * CBC W AUTO DIFFERENTIAL(Performed 10/15/2022) * ERYTHROCYTE SEDIMENTATION RATE(Performed 10/15/2022) * COMPREHENSIVE METABOLIC PANEL(Performed 10/15/2022) * CARDIAC EKG ORDER(Performed 10/13/2022) * HCG BLOOD QUALITATIVE(Performed 10/12/2022) * LIPASE BLOOD(Performed 10/12/2022) * TROPONIN I(Performed 10/12/2022) * CBC W AUTO DIFFERENTIAL(Performed 10/12/2022) * COMPREHENSIVE METABOLIC PANEL(Performed 10/12/2022) * EKG 12-LEAD(Performed 10/12/2022) Performed for Anxiety states * LAB RESULTS ORDER(Performed 07/22/2022) * EEG AWAKE OR DROWSY ROUTINE(Performed 07/20/2022) Performed for Seizure disorder ([facility]) * MRI ANGIO BRAIN ARTERIAL WO CONT(Performed 07/20/2022) Performed for H/O head injury, Altered mental status, unspecified altered mental status type, Rightthalamic infarction ([facility]), Syncope, unspecified syncope type * SYPHILIS ANTIBODY CASCADING REFLEX(Performed 05/16/2022) Performed for Memory change * T4 FREE(Performed 05/16/2022) Performed for Memory changes * HOMOCYSTEINE BLOOD QUANTITATIVE(Performed 05/16/2022) Performed for Memory changes * THYROID AB PANEL (TPO AB+THYROGLOB AB)(Performed 05/16/2022) Performed for Memory changes * TSH REFLEX FREE T4(Performed 05/16/2022) Performed for Memory change * VITAMIN D 25-HYDROXY(Performed 05/11/2022) Performed for Vitamin D deficiency * VITAMIN B12(Performed 05/11/2022) Performed for Anemia, unspecified type * METHYLMALONIC ACID BLOOD(Performed 05/11/2022) Performed for Anemia, unspecified type * FOLATE(Performed 05/11/2022) Performed for Anemia, unspecified type * IRON + TIBC + FERRITIN(Performed 05/11/2022) Performed for Anemia, unspecified type * URINALYSIS W/MICROSCOPIC REFLEX TO CULTURE(Performed 05/11/2022) Performed for Systemic lupus erythematosus (SLE) in adult ([facility]), terminal gauger current use of immunosuppressive drug * CBC W AUTO DIFFERENTIAL(Performed 05/11/2022) Performed for Systemic lupus erythematosus (SLE) in adult ([facility]), terminal gauger current use of immunosuppressive drug * ERYTHROCYTE SEDIMENTATION RATE(Performed 05/11/2022) Performed for Systemic lupus erythematosus (SLE) in adult ([facility]), half-way current use of immunosuppressive drug * C-REACTIVE PROTEIN(Performed 05/11/2022) Performed for Systemic lupus erythematosus (SLE) in adult ([facility]), half-way current use of immunosuppressive drug * COMPREHENSIVE METABOLIC PANEL(Performed 05/11/2022) Performed for Systemic lupus erythematosus (SLE) in adult ([facility]), half-way current use of immunosuppressive drug * CULTURE URINE(Performed 05/11/2022) * CULTURE URINE REFLEXED II(Performed 05/11/2022) * CULTURE URINE(Performed 04/22/2022) * URINALYSIS W/MICROSCOPIC NO CULTURE(Performed 04/22/2022) * CBC W AUTO DIFFERENTIAL(Performed 04/22/2022) * BASIC METABOLIC PANEL (CALCIUM TOTAL)(Performed 04/22/2022) * CT RENAL STONE(Performed 04/19/2022) Performed for Right flank pain * SYPHILIS ANTIBODY CASCADING REFLEX(Performed 04/19/2022) * HCG BETA BLOOD QUANTITATIVE(Performed 04/19/2022) * URINALYSIS W/MICROSCOPIC NO CULTURE(Performed 04/19/2022) * CBC W AUTO DIFFERENTIAL(Performed 02/04/2022) Performed for Neck pain on right side * IR IVC FILTER REMOVAL(Performed 02/01/2022) Performed for S/P IVC filter, History of pulmonary embolism * ENDOTRACHEAL TUBE NOTE(Performed 02/01/2022) * BLOOD TYPE VERIFICATION(Performed 02/01/2022) * HCG BETA BLOOD QUANTITATIVE(Performed 02/01/2022) Performed for Preop examination * HCG URINE QUALITATIVE - POCT (IP) INTERFACED(Performed 02/01/2022) * TYPE + SCREEN PANEL(Performed 02/01/2022) Performed for Antiphospholipid syndrome complicating , antepartum ([facility]) * HCG URINE QUALITATIVE - POCT (IP) INTERFACED(Performed 02/01/2022) * HCG URINE QUAL POCT NOTIFICATION(Performed 02/01/2022) Performed for S/P IVC filter * PT-INR SLH(Performed 02/01/2022) Performed for Presence of IVC filter * CBC W AUTO DIFFERENTIAL(Performed 02/01/2022) Performed for Presence of IVC filter * BLOOD TYPE VERIFICATION(Performed 02/01/2022) * SIX MINUTE WALK(Performed 01/21/2022) Performed for Dyspnea on exertion, ILD (interstitial lung disease) ([facility]), Restrictive lung disease,Diffusion capacity of lung (dl), decreased * COMPLETE PFT W/WO BRONCHODILATOR(Performed 01/21/2022) Performed for Dyspnea on exertion, ILD (interstitial lung disease) ([facility]), Restrictive lung disease,Diffusion capacity of lung (dl), decreased * ECHO COMPLETE(Performed 01/21/2022) Performed for Dyspnea on exertion, ILD (interstitial lung disease) ([facility]), Restrictive lung disease,Diffusion capacity of lung (dl), decreased * ALDOLASE(Performed 01/17/2022) * DNA ANTIBODY DS CRITHIDIA W/REFLEX TITER(Performed 01/17/2022) * DNA ANTIBODY DOUBLE STRANDED(Performed 01/17/2022) * URINALYSIS W/MICROSCOPIC NO CULTURE(Performed 01/17/2022) * CK BLOOD(Performed 01/17/2022) * LDH BLOOD(Performed 01/17/2022) * CBC W AUTO DIFFERENTIAL(Performed 01/17/2022) Performed for Systemic lupus erythematosus (SLE) in adult ([facility]), half-way current use of immunosuppressive drug * ERYTHROCYTE SEDIMENTATION RATE(Performed 01/17/2022) Performed for Systemic lupus erythematosus (SLE) in adult ([facility]), half-way current use of immunosuppressive drug * C-REACTIVE PROTEIN(Performed 01/17/2022) Performed for Systemic lupus erythematosus (SLE) in adult ([facility]), half-way current use of immunosuppressive drug * COMPREHENSIVE METABOLIC PANEL(Performed 01/17/2022) Performed for Systemic lupus erythematosus (SLE) in adult ([facility]), terminal gauger current use of immunosuppressive drug * LDH BLOOD(Performed 11/16/2021) Performed for Systemic lupus erythematosus (SLE) in adult ([facility]), terminal gauger current use of immunosuppressive drug, Therapeutic drug monitoring * ALDOLASE(Performed 11/16/2021) Performed for Systemic lupus erythematosus (SLE) in adult ([facility]), half-way current use of immunosuppressive drug, Therapeutic drug monitoring * CK BLOOD(Performed 11/16/2021) Performed for Systemic lupus erythematosus (SLE) in adult ([facility]), terminal gauger current use of immunosuppressive drug, Therapeutic drug monitoring * URINALYSIS W/MICROSCOPIC NO CULTURE(Performed 11/16/2021) Performed for Systemic lupus erythematosus (SLE) in adult ([facility]), half-way current use of immunosuppressive drug, Therapeutic drug monitoring * ERYTHROCYTE SEDIMENTATION RATE(Performed 11/16/2021) Performed for Systemic lupus erythematosus (SLE) in adult ([facility]), terminal gauger current use of immunosuppressive drug, Therapeutic drug monitoring * C-REACTIVE PROTEIN(Performed 11/16/2021) Performed for Systemic lupus erythematosus (SLE) in adult ([facility]), half-way current use of immunosuppressive drug, Therapeutic drug monitoring * COMPREHENSIVE METABOLIC PANEL(Performed 11/16/2021) Performed for Systemic lupus erythematosus (SLE) in adult ([facility]), half-way current use of immunosuppressive drug, Therapeutic drug monitoring * CBC W AUTO DIFFERENTIAL(Performed 11/16/2021) Performed for Systemic lupus erythematosus (SLE) in adult ([facility]), terminal gauger current use of immunosuppressive drug, Therapeutic drug monitoring * DNA ANTIBODY DOUBLE STRANDED(Performed 11/16/2021) Performed for Systemic lupus erythematosus (SLE) in adult ([facility]), half-way current use of immunosuppressive drug, Therapeutic drug monitoring * PROTEIN CREATININE RATIO URINE RANDOM PNL(Performed 11/16/2021) Performed for Systemic lupus erythematosus (SLE) in adult ([facility]), terminal gauger current use of immunosuppressive drug, Therapeutic drug monitoring * COMPLEMENT C3(Performed 11/16/2021) Performed for Systemic lupus erythematosus (SLE) in adult ([facility]), half-way current use of immunosuppressive drug, Therapeutic drug monitoring * COMPLEMENT C4(Performed 11/16/2021) Performed for Systemic lupus erythematosus (SLE) in adult ([facility]), half-way current use of immunosuppressive drug, Therapeutic drug monitoring * CT CHEST PE W ABD PELVIS W CONT(Performed 10/16/2021) Performed for Chest pressure * HCG URINE QUALITATIVE(Performed 10/15/2021) * URINALYSIS W/MICROSCOPIC NO CULTURE(Performed 10/15/2021) * D-DIMER(Performed 10/15/2021) * TROPONIN I(Performed 10/15/2021) * LIPASE BLOOD(Performed 10/15/2021) * COMPREHENSIVE METABOLIC PANEL(Performed 10/15/2021) * CBC W AUTO DIFFERENTIAL(Performed 10/15/2021) * EKG 12-LEAD(Performed 10/15/2021) Performed for Chest pressure * XR CHEST 2VW(Performed 10/15/2021) Performed for Chest pressure * LIPASE BLOOD(Performed 10/13/2021) * COMPREHENSIVE METABOLIC PANEL(Performed 10/13/2021) * CBC W AUTO DIFFERENTIAL(Performed 10/13/2021) * HCG URINE QUALITATIVE(Performed 10/13/2021) * URINALYSIS REFLEX TO MICROSCOPIC NO CULTURE(Performed 10/13/2021) * MD SONO EXAM, TRANSVAGINAL(Performed 09/23/2021) Performed for Cyst of ovary, unspecified laterality * IMAGING/RADIOLOGY/XRAY RESULTS ORDER(Performed 09/23/2021) * ROGERS (SM) ANTIBODY KARTHIKEYAN(Performed 09/13/2021) * CHROMATIN ANTIBODY(Performed 09/13/2021) * DNA ANTIBODY DOUBLE STRANDED(Performed 09/13/2021) * JEAN-PAUL BLOOD TITER(Performed 09/13/2021) * ERYTHROCYTE SEDIMENTATION RATE(Performed 09/13/2021) Performed for Systemic lupus erythematosus (SLE) in adult ([facility]) * C-REACTIVE PROTEIN(Performed 09/13/2021) Performed for Systemic lupus erythematosus (SLE) in adult ([facility]) * COMPREHENSIVE METABOLIC PANEL(Performed 09/13/2021) Performed for Systemic lupus erythematosus (SLE) in adult ([facility]) * CK BLOOD(Performed 09/13/2021) Performed for Systemic lupus erythematosus (SLE) in adult ([facility]) * CBC W AUTO DIFFERENTIAL(Performed 09/13/2021) Performed for Systemic lupus erythematosus (SLE) in adult ([facility]) * ALDOLASE(Performed 09/13/2021) Performed for Systemic lupus erythematosus (SLE) in adult ([facility]) * IMMUNOGLOBULINS IGG/IGM/IGA PANEL(Performed 09/13/2021) Performed for Systemic lupus erythematosus (SLE) in adult ([facility]) * COMPLEMENT C4(Performed 09/13/2021) Performed for Systemic lupus erythematosus (SLE) in adult ([facility]) * COMPLEMENT C3(Performed 09/13/2021) Performed for Systemic lupus erythematosus (SLE) in adult ([facility]) * JEAN-PAUL SCREEN IFA+LUPUS PANEL(Performed 09/13/2021) Performed for Systemic lupus erythematosus (SLE) in adult ([facility]) * CARDIAC EKG ORDER(Performed 07/27/2021) * CT ANGIO CHEST PULM EMBOLISM(Performed 07/24/2021) Performed for Chest pain, unspecified type, History of lupus anticoagulant disorder, History of pulmonary embolism * XR CHEST 2VW(Performed 07/24/2021) Performed for Chest pain, unspecified type * HCG URINE QUALITATIVE(Performed 07/24/2021) * URINALYSIS REFLEX TO MICROSCOPIC NO CULTURE(Performed 07/24/2021) * TROPONIN I(Performed 07/24/2021) * COMPREHENSIVE METABOLIC PANEL(Performed 07/24/2021) * CBC W AUTO DIFFERENTIAL(Performed 07/24/2021) * EKG 12-LEAD(Performed 07/24/2021) Performed for Chest pain, unspecified type * CT CHEST WO CONT AND HIRES(Performed 07/22/2021) Performed for Systemic lupus erythematosus (SLE) in adult ([facility]), Restrictive lung disease, Systemiclupus complicating ([facility]), SSA antibodies, terminal gauger current use of immunosuppressive drug, High risk medications (not anticoagulants) long-term use, Therapeutic drug monitoring * PROTEIN ELECTROPHORESIS BLOOD(Performed 07/13/2021) Performed for Systemic lupus erythematosus (SLE) in adult ([facility]) * THIOPURINE METHYLTRANSFERASE(Performed 07/13/2021) Performed for Systemic lupus erythematosus (SLE) in adult ([facility]) * PROTEIN CREATININE RATIO URINE RANDOM PNL(Performed 07/13/2021) Performed for Systemic lupus erythematosus (SLE) in adult ([facility]) * DNA ANTIBODY DOUBLE STRANDED(Performed 07/13/2021) Performed for Systemic lupus erythematosus (SLE) in adult ([facility]) * IGA BLOOD(Performed 07/13/2021) Performed for Systemic lupus erythematosus (SLE) in adult ([facility]) * IGG BLOOD(Performed 07/13/2021) Performed for Systemic lupus erythematosus (SLE) in adult ([facility]) * IGM BLOOD(Performed 07/13/2021) Performed for Systemic lupus erythematosus (SLE) in adult ([facility]) * COMPLEMENT C3(Performed 07/13/2021) Performed for Systemic lupus erythematosus (SLE) in adult ([facility]) * COMPLEMENT C4(Performed 07/13/2021) Performed for Systemic lupus erythematosus (SLE) in adult ([facility]) * URINALYSIS W/MICROSCOPIC NO CULTURE(Performed 07/13/2021) Performed for Systemic lupus erythematosus (SLE) in adult ([facility]) * ERYTHROCYTE SEDIMENTATION RATE(Performed 07/13/2021) Performed for Systemic lupus erythematosus (SLE) in adult ([facility]) * C-REACTIVE PROTEIN(Performed 07/13/2021) Performed for Systemic lupus erythematosus (SLE) in adult ([facility]) * COMPREHENSIVE METABOLIC PANEL(Performed 07/13/2021) Performed for Systemic lupus erythematosus (SLE) in adult ([facility]) * CBC W AUTO DIFFERENTIAL(Performed 07/13/2021) Performed for Systemic lupus erythematosus (SLE) in adult ([facility]) * PTT(Performed 07/12/2021) * HEPATIC FUNCTION PANEL(Performed 07/12/2021) * IMAGING/RADIOLOGY/XRAY RESULTS ORDER(Performed 12/11/2020) * IMAGING/RADIOLOGY/XRAY RESULTS ORDER(Performed 12/08/2020) * COMPREHENSIVE METABOLIC PANEL(Performed 12/07/2020) * CBC W/O DIFFERENTIAL(Performed 12/07/2020) * PATHOLOGY TISSUE EXAM (STL)(Performed 12/06/2020) Performed for Diagnosis unknown * BLOOD GASES CORD SEVERIANO(Performed 12/06/2020) * BLOOD GASES CORD ARTERIAL(Performed 12/06/2020) * NEURAXIAL BLOCK(Performed 12/06/2020) * SECTION (EMERGENCY)(Performed 12/06/2020) * US ABDOMEN LIMITED(Performed 12/06/2020) Performed for Nausea and vomiting, intractability of vomiting not specified, unspecified vomiting type * PROTEIN URINE QUALITATIVE AUTO(Performed 12/06/2020) * KETONES QUALITATIVE URINE AUTO(Performed 12/06/2020) * US RETROPERITONEAL COMPLETE(Performed 12/06/2020) Performed for Other acute back pain * AMYLASE BLOOD(Performed 12/05/2020) * CBC W AUTO DIFFERENTIAL(Performed 12/05/2020) Performed for Other acute back pain * COMPREHENSIVE METABOLIC PANEL(Performed 12/05/2020) Performed for Other acute back pain * LIPASE BLOOD(Performed 12/05/2020) Performed for Other acute back pain * TYPE + SCREEN PANEL(Performed 12/05/2020) * URINE MICROSCOPIC ONLY REFLEX TO CULTURE(Performed 12/05/2020) Performed for Supervision of high risk , antepartum ([facility]) * URINALYSIS REFLEX MICROSCOPIC REFLEX CULTURE(Performed 12/05/2020) Performed for Supervision of high risk , antepartum ([facility]) * CULTURE URINE(Performed 12/05/2020) Performed for Supervision of high risk , antepartum ([facility]) * TRICHOMONAS RAPID TEST(Performed 12/01/2020) Performed for Supervision of high risk in third trimester ([facility]) * CHLAMYDIA + GC AMPLIFIED PROBE(Performed 12/01/2020) Performed for Supervision of high risk in third trimester ([facility]) * CBC W/O DIFFERENTIAL(Performed 12/01/2020) Performed for Supervision of high risk in third trimester ([facility]) * URINE MICROSCOPIC ONLY REFLEX TO CULTURE(Performed 12/01/2020) Performed for Supervision of high risk in third trimester ([facility]) * URINALYSIS REFLEX MICROSCOPIC REFLEX CULTURE(Performed 12/01/2020) Performed for Supervision of high risk in third trimester ([facility]) * CULTURE URINE(Performed 12/01/2020) Performed for Supervision of high risk in third trimester ([facility]) * MD SONO FU OR REPEAT(Performed 12/01/2020) Performed for Supervision of high risk in third trimester ([facility]), Systemic lupus erythematosus (SLE) affecting , antepartum ([facility]), Maternal pulmonary embolus (PE), history of, Previous delivery, antepartum ([facility]) * MD BIOPHYSICAL PROFILE(Performed 12/01/2020) Performed for Supervision of high risk in third trimester ([facility]), Systemic lupus erythematosus (SLE) affecting , antepartum ([facility]), Maternal pulmonary embolus (PE), history of, Previous delivery, antepartum ([facility]) * IMAGING/RADIOLOGY/XRAY RESULTS ORDER(Performed 12/01/2020) * URINALYSIS - POINT OF CARE (AMB) [facility](Performed 11/27/2020) Performed for , unspecified gestational age ([facility]) * MD BIOPHYSICAL PROFILE(Performed 11/24/2020) Performed for Systemic lupus erythematosus affecting in third trimester ([facility]), Maternal pulmonary embolus (PE), history of, Supervision of high risk in third trimester ([facility]) * MD OB US, LIMITED, FETUS(S)(Performed 11/24/2020) Performed for Systemic lupus erythematosus affecting in third trimester ([facility]), Maternal pulmonary embolus (PE), history of, Supervision of high risk in third trimester ([facility]) * IMAGING/RADIOLOGY/XRAY RESULTS ORDER(Performed 11/24/2020) * NON-STRESS TEST(Performed 11/20/2020) * CBC W/O DIFFERENTIAL(Performed 11/20/2020) Performed for Nausea and vomiting, intractability of vomiting not specified, unspecified vomiting type * PHOSPHORUS BLOOD(Performed 11/20/2020) Performed for Nausea and vomiting, intractability of vomiting not specified, unspecified vomiting type * MAGNESIUM BLOOD(Performed 11/20/2020) Performed for Nausea and vomiting, intractability of vomiting not specified, unspecified vomiting type * COMPREHENSIVE METABOLIC PANEL(Performed 11/20/2020) Performed for Nausea and vomiting, intractability of vomiting not specified, unspecified vomiting type * URINALYSIS REFLEX MICROSCOPIC REFLEX CULTURE(Performed 11/20/2020) Performed for Nausea and vomiting, intractability of vomiting not specified, unspecified vomiting type * GLUCOSE - POINT OF CARE(Performed 11/20/2020) * MD BIOPHYSICAL PROFILE(Performed 11/17/2020) Performed for Supervision of high risk in third trimester ([facility]), Systemic lupus erythematosus affecting in third trimester ([facility]), Maternal pulmonary embolus (PE), history of, History of delivery * MD OB US, LIMITED, FETUS(S)(Performed 11/17/2020) Performed for Supervision of high risk in third trimester ([facility]), Systemic lupus erythematosus affecting in third trimester ([facility]), Maternal pulmonary embolus (PE), history of, History of delivery * IMAGING/RADIOLOGY/XRAY RESULTS ORDER(Performed 11/17/2020) * NONSTRESS TEST(Performed 11/15/2020) * PROTEIN CREATININE RATIO URINE RANDOM PNL(Performed 11/15/2020) Performed for Supervision of high risk in third trimester ([facility]) * URINALYSIS REFLEX MICROSCOPIC REFLEX CULTURE(Performed 11/15/2020) Performed for Supervision of high risk in third trimester ([facility]) * CBC W AUTO DIFFERENTIAL(Performed 11/15/2020) Performed for Supervision of high risk in third trimester ([facility]) * COMPREHENSIVE METABOLIC PANEL(Performed 11/15/2020) Performed for Supervision of high risk in third trimester ([facility]) * NONSTRESS TEST(Performed 11/13/2020) Performed for Supervision of high risk in third trimester ([facility]) * URINALYSIS REFLEX MICROSCOPIC REFLEX CULTURE(Performed 11/13/2020) Performed for Supervision of high risk in third trimester ([facility]) * GLUCOSE PROTEIN KETONE URINE - POINT OF CAR(Performed 11/13/2020) * AIMEE DIRECT(Performed 11/09/2020) * ANTIBODY IDENTIFICATION(Performed 11/09/2020) * TYPE + SCREEN PANEL(Performed 11/09/2020) * DIFFERENTIAL MANUAL(Performed 11/09/2020) Performed for Supervision of high risk in third trimester ([facility]) * CBC W AUTO DIFFERENTIAL(Performed 11/09/2020) Performed for Supervision of high risk in third trimester ([facility]) * URINE MICROSCOPIC ONLY REFLEX TO CULTURE(Performed 11/09/2020) Performed for Supervision of high risk in third trimester ([facility]) * URINALYSIS REFLEX MICROSCOPIC REFLEX CULTURE(Performed 11/09/2020) Performed for Supervision of high risk in third trimester ([facility]) * CULTURE URINE(Performed 11/09/2020) Performed for Supervision of high risk in third trimester ([facility]) * NONSTRESS TEST(Performed 11/03/2020) * URINE MICROSCOPIC ONLY REFLEX TO CULTURE(Performed 11/03/2020) Performed for Anemia affecting in third trimester ([facility]) * URINALYSIS REFLEX MICROSCOPIC REFLEX CULTURE(Performed 11/03/2020) Performed for Anemia affecting in third trimester ([facility]) * CULTURE URINE(Performed 11/03/2020) Performed for Anemia affecting in third trimester ([facility]) * TRICHOMONAS RAPID TEST(Performed 11/03/2020) Performed for Anemia affecting in third trimester ([facility]) * CHLAMYDIA + GC AMPLIFIED PROBE(Performed 11/03/2020) Performed for Anemia affecting in third trimester ([facility]) * MD SONO FU OR REPEAT(Performed 11/03/2020) Performed for Systemic lupus erythematosus affecting in third trimester ([facility]), Supervision of high risk in third trimester ([facility]), Maternal pulmonary embolus (PE), history of * MD BIOPHYSICAL PROFILE(Performed 11/03/2020) Performed for Systemic lupus erythematosus affecting in third trimester ([facility]), Supervision of high risk in third trimester ([facility]), Maternal pulmonary embolus (PE), history of * IMAGING/RADIOLOGY/XRAY RESULTS ORDER(Performed 11/03/2020) * URINALYSIS - POINT OF CARE (AMB) [facility](Performed 11/03/2020) Performed for , unspecified gestational age ([facility]) * NONSTRESS TEST(Performed 10/30/2020) * PHOSPHORUS BLOOD(Performed 10/29/2020) Performed for Supervision of high risk in third trimester ([facility]) * MAGNESIUM BLOOD(Performed 10/29/2020) Performed for Supervision of high risk in third trimester ([facility]) * COMPREHENSIVE METABOLIC PANEL(Performed 10/29/2020) Performed for Supervision of high risk in third trimester ([facility]) * CBC W AUTO DIFFERENTIAL(Performed 10/29/2020) Performed for Supervision of high risk in third trimester ([facility]) * EKG 12-LEAD(Performed 10/29/2020) Performed for Chest pain, unspecified type * NONSTRESS TEST(Performed 10/24/2020) * URINE MICROSCOPIC ONLY REFLEX TO CULTURE(Performed 10/24/2020) Performed for Supervision of high risk in third trimester ([facility]) * URINALYSIS REFLEX MICROSCOPIC REFLEX CULTURE(Performed 10/24/2020) Performed for Supervision of high risk in third trimester ([facility]) * CULTURE URINE(Performed 10/24/2020) Performed for Supervision of high risk in third trimester ([facility]) * TRICHOMONAS RAPID TEST(Performed 10/24/2020) Performed for Supervision of high risk in third trimester ([facility]) * CHLAMYDIA + GC AMPLIFIED PROBE(Performed 10/24/2020) Performed for Supervision of high risk in third trimester ([facility]) * IRON + TIBC + FERRITIN(Performed 10/20/2020) Performed for 30 weeks gestation of ([facility]), Anemia during in third trimester ([facility]) * URINALYSIS - POINT OF CARE (AMB) [facility](Performed 10/20/2020) Performed for 30 weeks gestation of ([facility]) * IMAGING/RADIOLOGY/XRAY RESULTS ORDER(Performed 10/16/2020) * GLUCOSE PROTEIN KETONE URINE - POINT OF CAR(Performed 10/15/2020) * MD SONO FU OR REPEAT(Performed 10/09/2020) Performed for Supervision of high risk in third trimester ([facility]), History of delivery, Systemic lupus erythematosus (SLE) affecting , antepartum ([facility]), Encounter for ultrasound to assess growth ([facility]), Current maternal condition affecting ([facility]) * IMAGING/RADIOLOGY/XRAY RESULTS ORDER(Performed 10/09/2020) * HEPATITIS C AB W/RFLX TO HCV RNA QN PCR(Performed 10/09/2020) Performed for Supervision of high risk in second trimester ([facility]) * GLUCOSE CHALLENGE(Performed 10/09/2020) Performed for Supervision of high risk in second trimester ([facility]) * SYPHILIS ANTIBODY CASCADING REFLEX(Performed 10/09/2020) Performed for Supervision of high risk in second trimester ([facility]) * CBC W AUTO DIFFERENTIAL(Performed 10/09/2020) Performed for Supervision of high risk in second trimester ([facility]) * HIV-1 HIV-2 ANTIBODY + HIV P24 AG PANEL(Performed 10/09/2020) Performed for Supervision of high risk in second trimester ([facility]) * MD SONO HEART(Performed 09/25/2020) Performed for Systemic lupus erythematosus (SLE) affecting , antepartum ([facility]), Encounter for screening for congenital cardiac abnormalities ([facility]), Evaluate anatomy not seen on prior sonogram * MD DOPPLER ECHO PULSED WAVE &/CONT WAVE; CMPL(Performed 09/25/2020) Performed for Systemic lupus erythematosus (SLE) affecting , antepartum ([facility]), Encounter for screening for congenital cardiac abnormalities ([facility]), Evaluate anatomy not seen on prior sonogram * MD DOPPLER COLOR FLOW VELOCITY MAP(Performed 09/25/2020) Performed for Systemic lupus erythematosus (SLE) affecting , antepartum ([facility]), Encounter for screening for congenital cardiac abnormalities ([facility]), Evaluate anatomy not seen on prior sonogram * MD OB US, LIMITED, FETUS(S)(Performed 09/25/2020) Performed for Systemic lupus erythematosus (SLE) affecting , antepartum ([facility]), Encounter for screening for congenital cardiac abnormalities ([facility]), Evaluate anatomy not seen on prior sonogram * IMAGING/RADIOLOGY/XRAY RESULTS ORDER(Performed 09/25/2020) * URINALYSIS - POINT OF CARE (AMB) [facility](Performed 09/25/2020) Performed for Supervision of high risk in second trimester ([facility]) * MD SONO FU OR REPEAT(Performed 09/11/2020) Performed for History of maternal deep vein thrombosis (DVT), Systemic lupus erythematosus, unspecified SLE type, unspecified organ involvement status ([facility]), Systemic lupus erythematosus (SLE) affecting , antepartum ([facility]), Maternal pulmonary embolus (PE), history of, Evaluate anatomy not seen on prior sonogram * MD SONO HEART F/U(Performed 09/11/2020) Performed for History of maternal deep vein thrombosis (DVT), Systemic lupus erythematosus, unspecified SLE type, unspecified organ involvement status ([facility]), Systemic lupus erythematosus (SLE) affecting , antepartum ([facility]), Maternal pulmonary embolus (PE), history of, Evaluate anatomy not seen on prior sonogram * IMAGING/RADIOLOGY/XRAY RESULTS ORDER(Performed 09/11/2020) * MD DOPPLER ECHO PULSE WAVE&/CONT WAVE; REPEAT(Performed 08/28/2020) Performed for SS-A antibody positive, Systemic lupus erythematosus (SLE) affecting , antepartum (HCC), Maternal pulmonary embolus (PE), history of * MD OB US, LIMITED, FETUS(S)(Performed 08/28/2020) Performed for SS-A antibody positive, Systemic lupus erythematosus (SLE) affecting , antepartum (HCC), Maternal pulmonary embolus (PE), history of * IMAGING/RADIOLOGY/XRAY RESULTS ORDER(Performed 08/28/2020) * URINALYSIS - POINT OF CARE (AMB) [facility](Performed 08/28/2020) Performed for , unspecified gestational age ([facility]) * PFT-LAB(Performed 08/25/2020) Performed for Systemic lupus erythematosus, unspecified SLE type, unspecified organ involvement status ([facility]), Restrictive lung disease * ECHOCARDIOGRAM 2D WITH DOPPLER(Performed 08/25/2020) Performed for Systemic lupus erythematosus, unspecified SLE type, unspecified organ involvement status ([facility]) * URINALYSIS - POINT OF CARE (AMB) [facility](Performed 08/24/2020) Performed for , unspecified gestational age ([facility]) * CULTURE URINE(Performed 08/14/2020) Performed for Painful urination * SURESWAB VAGINOSIS/VAGINITIS PLUS(Performed 08/14/2020) Performed for Vaginal discharge * MD ULTRASND,PREG UTERUS,IMAGE DOC(Performed 08/14/2020) Performed for Systemic lupus erythematosus (SLE) affecting , antepartum (HCC), SS-A antibody positive, Maternal pulmonary embolus (PE), history of, High-risk , second trimester ([facility]), SLE (systemic lupus erythematosus related syndrome) ([facility]), Encounter for anatomic survey ([facility]) * MD DOPPLER ECHO PULSE WAVE&/CONT WAVE; REPEAT(Performed 08/14/2020) Performed for Systemic lupus erythematosus (SLE) affecting , antepartum (HCC), SS-A antibody positive, Maternal pulmonary embolus (PE), history of, High-risk , second trimester ([facility]), SLE (systemic lupus erythematosus related syndrome) ([facility]), Encounter for anatomic survey ([facility]) * IMAGING/RADIOLOGY/XRAY RESULTS ORDER(Performed 08/14/2020) * URINALYSIS - POINT OF CARE (AMB) [facility](Performed 08/14/2020) Performed for , unspecified gestational age ([facility]) * WET PREP - POINT OF CARE (AMB) [facility](Performed 08/14/2020) Performed for Vaginal discharge * PROC US ECHOGRAPHY TRANSVAGINAL(Performed 07/31/2020) Performed for Systemic lupus erythematosus, unspecified SLE type, unspecified organ involvement status (HCC), Systemic lupus erythematosus (SLE) affecting , antepartum (HCC) * IMAGING/RADIOLOGY/XRAY RESULTS ORDER(Performed 07/31/2020) * IMAGING/RADIOLOGY/XRAY RESULTS ORDER(Performed 07/17/2020) * IMAGING/RADIOLOGY/XRAY RESULTS ORDER(Performed 07/17/2020) * URINALYSIS - POINT OF CARE (AMB) [facility](Performed 07/17/2020) Performed for , unspecified gestational age (HCC) * CARDIAC EKG ORDER(Performed 07/10/2020) * NM LUNG SCAN PERFUSION ONLY(Performed 07/09/2020) Performed for History of pulmonary embolism, Chest pain on breathing * ANTIBODY IDENTIFICATION(Performed 06/23/2020) Performed for ASCUS of cervix with negative high risk HPV * ANTIBODY SCREEN(Performed 06/23/2020) Performed for ASCUS of cervix with negative high risk HPV * IMAGING/RADIOLOGY/XRAY RESULTS ORDER(Performed 06/15/2020) * ANTIBODY SCREEN(Performed 06/12/2020) Performed for Long-term use of immunosuppressant medication * PROTEIN CREATININE RATIO URINE RANDOM PNL(Performed 06/12/2020) Performed for Long-term use of immunosuppressant medication * COMPREHENSIVE METABOLIC PANEL(Performed 06/12/2020) Performed for Long-term use of immunosuppressant medication * HEMOGLOBIN A1C(Performed 06/12/2020) Performed for Long-term use of immunosuppressant medication * LUPUS ANTICOAGULANT PANEL(Performed 06/12/2020) Performed for Long-term use of immunosuppressant medication * MD US NUCHAL TRANSLUCENCY 1ST GESTATION(Performed 06/12/2020) Performed for History of pulmonary embolism, Systemic lupus erythematosus with lung involvement, unspecified SLE type (HCC), History of maternal deep vein thrombosis (DVT), Nuchal translucency of fetus on ultrasound (HCC), Maternal systemic lupus erythematosus, antepartum (HCC) * QNATAL ADVANCED(Performed 06/12/2020) Performed for , unspecified gestational age (HCC), History of pulmonary embolism * URINALYSIS - POINT OF CARE (AMB) [facility](Performed 06/12/2020) Performed for , unspecified gestational age (HCC) * IMAGING/RADIOLOGY/XRAY RESULTS ORDER(Performed 05/20/2020) * MD ULTRASOUND, UTERUS(Performed 05/15/2020) Performed for ASCUS of cervix with negative high risk HPV, Systemic lupus erythematosus, unspecified SLE type, unspecified organ involvement status (HCC), History of maternal deep vein thrombosis (DVT), size consistent with dates during in first trimester ([facility]) * PAP IMAGE-GUIDED RFLX HPV+CT/NG+TRICH(Performed 05/15/2020) Performed for Screening for cervical cancer, Screen for STD (sexually transmitted disease) * C. TRACHOMATIS + N. GONORRHOEAE + TRICH DAT(Performed 05/15/2020) Performed for Screening for cervical cancer, Screen for STD (sexually transmitted disease) * AIMEE DIRECT RFLX ANTI C3 AND ANTI IGG(Performed 05/15/2020) * ANTIBODY IDENTIFICATION(Performed 05/15/2020) * URINALYSIS - POINT OF CARE (AMB) [facility](Performed 05/15/2020) Performed for , unspecified gestational age (HCC) * JEAN-PAUL BLOOD TITER(Performed 05/15/2020) * COMPLEMENT C3 AB+IGG AB(Performed 05/15/2020) * DIFFERENTIAL MANUAL RFLXED(Performed 05/15/2020) * PROFILE I W/ HBSAG(Performed 05/15/2020) Performed for , unspecified gestational age (HCC), History of pulmonary embolism, Chronic anticoagulation, Systemic lupus erythematosus with lung involvement, unspecified SLE type ([facility]) * ROGERS (SM)+MEDICAL ASSEMBLY ANTIBODY PANEL(Performed 05/15/2020) Performed for , unspecified gestational age (HCC), History of pulmonary embolism, Chronic anticoagulation, Systemic lupus erythematosus with lung involvement, unspecified SLE type (HCC) * RIBOSOMAL P PROTEIN ANTIBODY(Performed 05/15/2020) Performed for , unspecified gestational age (HCC), History of pulmonary embolism, Chronic anticoagulation, Systemic lupus erythematosus with lung involvement, unspecified SLE type (HCC) * DNA ANTIBODY DOUBLE STRANDED(Performed 05/15/2020) Performed for , unspecified gestational age (HCC), History of pulmonary embolism, Chronic anticoagulation, Systemic lupus erythematosus with lung involvement, unspecified SLE type ([facility]) * COMPLEMENT C3 C4 PANEL(Performed 05/15/2020) Performed for , unspecified gestational age (HCC), History of pulmonary embolism, Chronic anticoagulation, Systemic lupus erythematosus with lung involvement, unspecified SLE type (HCC) * CHROMATIN ANTIBODY(Performed 05/15/2020) Performed for , unspecified gestational age (HCC), History of pulmonary embolism, Chronic anticoagulation, Systemic lupus erythematosus with lung involvement, unspecified SLE type (HCC) * CARDIOLIPIN ANTIBODY IGA/IGG/IGM PANEL(Performed 05/15/2020) Performed for , unspecified gestational age (HCC), History of pulmonary embolism, Chronic anticoagulation, Systemic lupus erythematosus with lung involvement, unspecified SLE type (HCC) * BETA-2 GLYCOPROTEIN 1 ANTIBODY IGG/IGM/IGA PANEL(Performed 05/15/2020) Performed for , unspecified gestational age (HCC), History of pulmonary embolism, Chronic anticoagulation, Systemic lupus erythematosus with lung involvement, unspecified SLE type (HCC) * JEAN-PAUL BLOOD SCREEN W/REFLEX TITER(Performed 05/15/2020) Performed for , unspecified gestational age (HCC), History of pulmonary embolism, Chronic anticoagulation, Systemic lupus erythematosus with lung involvement, unspecified SLE type (HCC) * HIV-1 HIV-2 ANTIBODY + HIV P24 AG PANEL(Performed 05/15/2020) Performed for , unspecified gestational age (HCC), History of pulmonary embolism, Chronic anticoagulation, Systemic lupus erythematosus with lung involvement, unspecified SLE type (HCC) * SS-A/SS-B (SJOGREN'S) ANTIBODY PANEL(Performed 05/15/2020) Performed for , unspecified gestational age (HCC), History of pulmonary embolism, Chronic anticoagulation, Systemic lupus erythematosus with lung involvement, unspecified SLE type (HCC) * CT ABDOMEN PELVIS W CONTRAST(Performed 04/01/2019) Performed for Non-intractable vomiting with nausea, unspecified vomiting type, Acute bilateral low back pain without sciatica * HCG URINE QUALITATIVE - POINT OF CARE(Performed 04/01/2019) * LIPASE BLOOD(Performed 04/01/2019) * URINALYSIS W/MICROSCOPIC NO CULTURE(Performed 04/01/2019) * COMPREHENSIVE METABOLIC PANEL(Performed 04/01/2019) * CBC W AUTO DIFFERENTIAL(Performed 04/01/2019) * SKIN TEST PPD - POINT OF CARE(Performed 09/14/2018) Performed for Encounter for PPD skin test reading * TUBERCULOSIS (PPD) INTRADERMAL(Performed 09/11/2018) Performed for Screening for tuberculosis * MONITOR STRIP(Performed 01/10/2018) * JEAN-PAUL BLOOD TITER(Performed 12/05/2017) * CHROMATIN ANTIBODY(Performed 12/05/2017) Performed for Systemic lupus erythematosus with lung involvement, unspecified SLE type (HCC), half-way current use of immunosuppressive drug, SSA antibodies, Restrictive lung disease, Anxiety, Anti-phospholipid syndrome (HCC) * MEDICAL ASSEMBLY ANTIBODY(Performed 12/05/2017) Performed for Systemic lupus erythematosus with lung involvement, unspecified SLE type (HCC), terminal gauger current use of immunosuppressive drug, SSA antibodies, Restrictive lung disease, Anxiety, Anti-phospholipid syndrome (HCC) * ROGERS (SM) ANTIBODY KARTHIKEYAN(Performed 12/05/2017) Performed for Systemic lupus erythematosus with lung involvement, unspecified SLE type (HCC), terminal gauger current use of immunosuppressive drug, SSA antibodies, Restrictive lung disease, Anxiety, Anti-phospholipid syndrome (HCC) * SS-B (SJOGREN'S) ANTIBODY(Performed 12/05/2017) Performed for Systemic lupus erythematosus with lung involvement, unspecified SLE type (HCC), terminal gauger current use of immunosuppressive drug, SSA antibodies, Restrictive lung disease, Anxiety, Anti-phospholipid syndrome (HCC) * SS-A (SJOGREN'S) ANTIBODY(Performed 12/05/2017) Performed for Systemic lupus erythematosus with lung involvement, unspecified SLE type (HCC), terminal gauger current use of immunosuppressive drug, SSA antibodies, Restrictive lung disease, Anxiety, Anti-phospholipid syndrome (HCC) * JEAN-PAUL BLOOD SCREEN W/REFLEX TITER(Performed 12/05/2017) Performed for Systemic lupus erythematosus with lung involvement, unspecified SLE type (HCC), terminal gauger current use of immunosuppressive drug, SSA antibodies, Restrictive lung disease, Anxiety, Anti-phospholipid syndrome (HCC) * MONITOR STRIP(Performed 10/27/2017) * MONITOR STRIP(Performed 10/27/2017) * IMAGING/RADIOLOGY/XRAY RESULTS ORDER(Performed 10/04/2017) * HEPARIN ANTI-XA LMWH(Performed 10/02/2017) * DIFFERENTIAL MANUAL(Performed 09/30/2017) * CBC W AUTO DIFFERENTIAL(Performed 09/30/2017) * NEURAXIAL BLOCK(Performed 09/29/2017) * DIFFERENTIAL MANUAL(Performed 09/29/2017) * CBC W AUTO DIFFERENTIAL(Performed 09/29/2017) * BLOOD GASES CORD SEVERIANO (ISTAT)(Performed 09/29/2017) * PATHOLOGY TISSUE EXAM (STL)(Performed 09/29/2017) Performed for Diagnosis unknown * PREPARE RBC LEUKOREDUCED UNIT(Performed 09/28/2017) * IMAGING/RADIOLOGY/XRAY RESULTS ORDER(Performed 09/28/2017) * URINE MICROSCOPIC ONLY REFLEX TO CULTURE(Performed 09/27/2017) Performed for Systemic lupus erythematosus with other organ involvement, unspecified SLE type (HCC), Restrictive lung disease, Lupus cerebritis (HCC), Anti-phospholipid antibody syndrome (HCC), Encounter for therapeutic drug monitoring, Long-term use of immunosuppressant medication * URINALYSIS REFLEX MICROSCOPIC REFLEX CULTURE(Performed 09/27/2017) Performed for Systemic lupus erythematosus with other organ involvement, unspecified SLE type (HCC), Restrictive lung disease, Lupus cerebritis (HCC), Anti-phospholipid antibody syndrome (HCC), Encounter for therapeutic drug monitoring, Long-term use of immunosuppressant medication * CULTURE URINE(Performed 09/27/2017) Performed for Systemic lupus erythematosus with other organ involvement, unspecified SLE type (HCC), Restrictive lung disease, Lupus cerebritis (HCC), Anti-phospholipid antibody syndrome (HCC), Encounter for therapeutic drug monitoring, Long-term use of immunosuppressant medication * TYPE + SCREEN PANEL(Performed 09/27/2017) Performed for Oligohydramnios in third trimester, single or unspecified fetus (HCC) * COMPLEMENT C4(Performed 09/27/2017) * COMPLEMENT C3(Performed 09/27/2017) * COMPREHENSIVE METABOLIC PANEL(Performed 09/27/2017) * CBC W AUTO DIFFERENTIAL(Performed 09/27/2017) Performed for Oligohydramnios in third trimester, single or unspecified fetus (HCC) * US OB LIMITED(Performed 09/27/2017) Performed for Depression affecting (HCC), SSA antibodies, Necrotizing pancreatitis (HCC),Antiphospholipid antibody positive * MD BIOPHYSICAL PROFILE(Performed 09/27/2017) Performed for Depression affecting (HCC), SSA antibodies, Necrotizing pancreatitis (HCC),Antiphospholipid antibody positive * URINALYSIS - POINT OF CARE (AMB) SLU(Performed 09/27/2017) Performed for Depression affecting (HCC) * US BIOPHYSICAL PROFILE W/ NST(Performed 09/21/2017) Performed for , unspecified gestational age (HCC), Systemic lupus erythematosus (SLE) in adult (HCC) * MD SONO FU OR REPEAT(Performed 09/21/2017) Performed for , unspecified gestational age (HCC), Systemic lupus erythematosus (SLE) in adult ([facility]) * CULTURE STREP B(Performed 09/20/2017) Performed for Screening, , for Streptococcus B ([facility]) * URINALYSIS - POINT OF CARE (AMB) SLU(Performed 09/20/2017) Performed for , unspecified gestational age (HCC), Systemic lupus erythematosus (SLE) in adult ([facility]) * MONITOR STRIP(Performed 09/15/2017) * MONITOR STRIP(Performed 09/15/2017) * IMAGING/RADIOLOGY/XRAY RESULTS ORDER(Performed 09/15/2017) * MONITOR STRIP(Performed 09/14/2017) * MONITOR STRIP(Performed 09/14/2017) * MONITOR STRIP(Performed 09/14/2017) * MONITOR STRIP(Performed 09/13/2017) * MONITOR STRIP(Performed 09/13/2017) * US BIOPHYSICAL PROFILE W/ NST(Performed 09/13/2017) Performed for , unspecified gestational age ([facility]), Systemic lupus erythematosus (SLE) in adult ([facility]) * MD OB US, LIMITED, FETUS(S)(Performed 09/13/2017) Performed for , unspecified gestational age (HCC), Systemic lupus erythematosus (SLE) in adult ([facility]) * US BIOPHYSICAL PROFILE W/ NST(Performed 09/12/2017) Performed for , unspecified gestational age (HCC), Systemic lupus erythematosus (SLE) in adult ([facility]) * US OB LIMITED(Performed 09/12/2017) Performed for , unspecified gestational age ([facility]), Systemic lupus erythematosus (SLE) in adult ([facility]) * MICROALBUMIN URINE RANDOM(Performed 09/05/2017) Performed for Systemic lupus erythematosus with other organ involvement, unspecified SLE type ([facility]), Systemic lupus complicating ([facility]) * US BIOPHYSICAL PROFILE W/ NST(Performed 09/05/2017) Performed for , unspecified gestational age ([facility]), Systemic lupus erythematosus (SLE) in adult ([facility]) * MD OB US, LIMITED, FETUS(S)(Performed 09/05/2017) Performed for , unspecified gestational age ([facility]), Systemic lupus erythematosus (SLE) in adult ([facility]) * DNA ANTIBODY DOUBLE STRANDED(Performed 09/05/2017) Performed for Systemic lupus erythematosus with other organ involvement, unspecified SLE type (HCC), Systemic lupus complicating (HCC) * COMPREHENSIVE METABOLIC PANEL(Performed 09/05/2017) Performed for Systemic lupus erythematosus with other organ involvement, unspecified SLE type (HCC), Systemic lupus complicating (HCC), Poor weight gain of , third trimester (HCC),Gastroesophageal reflux disease without esophagitis * CBC W/O DIFFERENTIAL(Performed 09/05/2017) Performed for Systemic lupus erythematosus with other organ involvement, unspecified SLE type (HCC), Systemic lupus complicating (HCC), Poor weight gain of , third trimester (HCC),Gastroesophageal reflux disease without esophagitis * COMPLEMENT C4(Performed 09/05/2017) Performed for Systemic lupus erythematosus with other organ involvement, unspecified SLE type (HCC), Systemic lupus complicating (HCC) * COMPLEMENT C3(Performed 09/05/2017) Performed for Systemic lupus erythematosus with other organ involvement, unspecified SLE type (HCC), Systemic lupus complicating (HCC) * COMPLEMENT TOTAL(Performed 09/05/2017) Performed for Systemic lupus erythematosus with other organ involvement, unspecified SLE type (HCC), Systemic lupus complicating (HCC) * URINALYSIS - POINT OF CARE (AMB) SLU(Performed 09/05/2017) Performed for , unspecified gestational age ([facility]), Systemic lupus complicating ([facility]) * NON-STRESS TEST(Performed 09/01/2017) Performed for Systemic lupus erythematosus (SLE) in adult ([facility]) * MONITOR STRIP(Performed 08/28/2017) * US BIOPHYSICAL PROFILE W/ NST(Performed 08/28/2017) Performed for , unspecified gestational age (HCC), Systemic lupus erythematosus (SLE) in adult ([facility]) * MONITOR STRIP(Performed 08/24/2017) * MD SONO HEART F/U(Performed 08/23/2017) Performed for Systemic lupus complicating ([facility]) * MD SONO FU OR REPEAT(Performed 08/23/2017) Performed for Systemic lupus complicating ([facility]) * URINALYSIS - POINT OF CARE (AMB) SLU(Performed 08/23/2017) Performed for , unspecified gestational age (HCC), Systemic lupus erythematosus (SLE) in adult ([facility]) * CULTURE URINE(Performed 08/23/2017) Performed for Abnormal urinalysis * IMAGING/RADIOLOGY/XRAY RESULTS ORDER(Performed 08/11/2017) * IMAGING/RADIOLOGY/XRAY RESULTS ORDER(Performed 08/11/2017) * PROC US ECHO W/2D IMAGE, W/WO M MODE(Performed 08/09/2017) Performed for Systemic lupus complicating (HCC) * URINALYSIS - POINT OF CARE (AMB) SLU(Performed 08/09/2017) Performed for , unspecified gestational age (HCC), Systemic lupus erythematosus (SLE) in adult (HCC) * CBC W AUTO DIFFERENTIAL(Performed 08/09/2017) Performed for , unspecified gestational age (HCC), Systemic lupus erythematosus (SLE) in adult (HCC) * CULTURE URINE(Performed 08/09/2017) Performed for , unspecified gestational age (HCC), Systemic lupus erythematosus (SLE) in adult (HCC) * PROC US ECHO W/2D IMAGE, W/WO M MODE(Performed 08/09/2017) Performed for Systemic lupus complicating (HCC) * US OB LIMITED(Performed 07/24/2017) Performed for Systemic lupus complicating (HCC) * PROC US ECHO W/2D IMAGE, W/WO M MODE(Performed 07/24/2017) Performed for Systemic lupus complicating (HCC) * MD OB US, LIMITED, FETUS(S)(Performed 07/17/2017) Performed for Systemic lupus complicating (HCC) * LDH BLOOD(Performed 07/12/2017) * GLUCOSE CHALLENGE(Performed 07/12/2017) * RPR W REFLEX CONFIRM(Performed 07/12/2017) * HIV-1 HIV-2 ANTIGEN/ANTIBODY(Performed 07/12/2017) * URINALYSIS - POINT OF CARE (AMB) SLU(Performed 07/12/2017) * URINALYSIS - POINT OF CARE (AMB) SLU(Performed 06/27/2017) * ECHO CONSULT - (Performed 06/19/2017) Performed for arrhythmia affecting , antepartum (HCC) * LAB RESULTS ORDER(Performed 06/08/2017) * BLOOD TYPE VERIFICATION(Performed 06/06/2017) Performed for Supervision of normal first , antepartum (HCC), Maternal atypical antibody affecting in first trimester, single or unspecified fetus (HCC) * AIMEE DIRECT(Performed 06/06/2017) Performed for Supervision of normal first , antepartum (HCC), Maternal atypical antibody affecting in first trimester, single or unspecified fetus (HCC) * ANTIBODY SCREEN(Performed 06/06/2017) Performed for Supervision of normal first , antepartum (HCC), Maternal atypical antibody affecting in first trimester, single or unspecified fetus (HCC) * ECHOCARDIOGRAM 2D WITH DOPPLER(Performed 06/06/2017) Performed for Supervision of elderly multigravida in second trimester (HCC) * PAP IMAGE-GUIDED W HPV(Performed 06/06/2017) * URINALYSIS - POINT OF CARE (AMB) SLU(Performed 06/06/2017) * WET PREP - POINT OF CARE (AMB) SLU(Performed 06/06/2017) * FUNGUS MARION - POINT OF CARE (AMB) SLU(Performed 06/06/2017) * PATHOLOGY/GENETICS HISTORICAL-ONBASE(Performed 06/06/2017) * ALPHA FETOPROTEIN BLOOD MATERNAL QUAD PANEL(Performed 05/29/2017) * CBC W AUTO DIFFERENTIAL(Performed 05/29/2017) * CBC W AUTO DIFFERENTIAL(Performed 05/29/2017) * ANTIBODY IDENTIFICATION(Performed 05/29/2017) * AIMEE DIRECT(Performed 05/29/2017) * HEPATITIS C AB W/RFLX TO HCV RNA QN PCR(Performed 05/29/2017) * PROTEIN CREATININE RATIO URINE TIMED PNL(Performed 05/29/2017) * SS-A/SS-B (SJOGREN'S) ANTIBODY PANEL(Performed 05/29/2017) * CREATININE CLEARANCE URINE TIMED + BLOOD(Performed 05/29/2017) * PROFILE I W/ HBSAG(Performed 05/29/2017) * HIV-1 HIV-2 ANTIGEN/ANTIBODY(Performed 05/29/2017) * COMPLEMENT C3 AB+IGG AB(Performed 05/29/2017) * CHLAMYDIA+GC DAT PAP VIAL(Performed 05/10/2017) * CULTURE URINE(Performed 05/10/2017) * URINALYSIS - POINT OF CARE (AMB) SLU(Performed 05/09/2017) * DNA ANTIBODY DS CRITHIDIA IFA(Performed 04/26/2017) * C-REACTIVE PROTEIN(Performed 04/26/2017) * COMPLEMENT C3(Performed 04/26/2017) * COMPLEMENT C4(Performed 04/26/2017) * ERYTHROCYTE SEDIMENTATION RATE(Performed 04/26/2017) * COMPREHENSIVE METABOLIC PANEL(Performed 04/26/2017) * URINALYSIS W/MICROSCOPIC REFLEX TO CULTURE(Performed 04/26/2017) * CBC W AUTO DIFFERENTIAL(Performed 04/26/2017) * BASIC METABOLIC PANEL (CALCIUM TOTAL)(Performed 05/10/2016) * MAGNESIUM BLOOD(Performed 05/10/2016) * CBC W AUTO DIFFERENTIAL(Performed 05/10/2016) * CBC W AUTO DIFFERENTIAL(Performed 05/10/2016) * MAGNESIUM BLOOD(Performed 05/09/2016) * CBC W AUTO DIFFERENTIAL(Performed 05/09/2016) * CBC W AUTO DIFFERENTIAL(Performed 05/09/2016) * ERYTHROCYTE SEDIMENTATION RATE(Performed 05/08/2016) * CBC W AUTO DIFFERENTIAL(Performed 05/08/2016) * COMPLEMENT C4(Performed 05/08/2016) * COMPLEMENT C3(Performed 05/08/2016) * FERRITIN(Performed 05/08/2016) * C-REACTIVE PROTEIN(Performed 05/08/2016) * IRON BLOOD(Performed 05/08/2016) * TRANSFERRIN(Performed 05/08/2016) * COMPREHENSIVE METABOLIC PANEL(Performed 05/08/2016) * MAGNESIUM BLOOD(Performed 05/08/2016) * DNA ANTIBODY DOUBLE STRANDED(Performed 05/08/2016) * CBC W AUTO DIFFERENTIAL(Performed 05/08/2016) * CT ABDOMEN PELVIS W CONTRAST(Performed 05/07/2016) * COMPREHENSIVE METABOLIC PANEL(Performed 05/07/2016) * CBC W AUTO DIFFERENTIAL(Performed 05/07/2016) * LIPASE BLOOD(Performed 05/07/2016) * URINALYSIS W/MICROSCOPIC NO CULTURE(Performed 05/07/2016) * HCG URINE QUALITATIVE - POCT (IP) SL(Performed 05/07/2016) * CBC W AUTO DIFFERENTIAL(Performed 05/07/2016) * DNA (DS) ANTIBODY RFLEX IFA(Performed 01/18/2016) * ALDOLASE(Performed 01/18/2016) * ERYTHROCYTE SEDIMENTATION RATE(Performed 01/18/2016) * C-REACTIVE PROTEIN(Performed 01/18/2016) * LDH BLOOD(Performed 01/18/2016) * CK BLOOD(Performed 01/18/2016) * COMPREHENSIVE METABOLIC PANEL(Performed 01/18/2016) * URINALYSIS W/MICROSCOPIC NO CULTURE(Performed 01/18/2016) * CBC W AUTO DIFFERENTIAL(Performed 01/18/2016) * DNA ANTIBODY DS CRITHIDIA TITER(Performed 01/18/2016) * CBC W AUTO DIFFERENTIAL(Performed 01/18/2016) * JEAN-PAUL BLOOD TITER(Performed 12/03/2015) * DNA ANTIBODY DS CRITHIDIA TITER(Performed 12/03/2015) * ERYTHROCYTE SEDIMENTATION RATE(Performed 12/03/2015) * COMPREHENSIVE METABOLIC PANEL(Performed 12/03/2015) * URINALYSIS W/MICROSCOPIC REFLEX TO CULTURE(Performed 12/03/2015) * CBC W AUTO DIFFERENTIAL(Performed 12/03/2015) * C-REACTIVE PROTEIN(Performed 12/03/2015) * VITAMIN D 25-HYDROXY(Performed 12/03/2015) * RIBOSOMAL P PROTEIN ANTIBODY(Performed 12/03/2015) * DNA ANTIBODY DS CRITHIDIA IFA(Performed 12/03/2015) * LUPUS ERYTHEMATOSUS PANEL(Performed 12/03/2015) * C-REACTIVE PROTEIN(Performed 05/25/2015) * COMPLEMENT C4(Performed 05/25/2015) * CBC W AUTO DIFFERENTIAL(Performed 05/25/2015) * URINALYSIS W/MICROSCOPIC REFLEX TO CULTURE(Performed 05/25/2015) * COMPREHENSIVE METABOLIC PANEL(Performed 05/25/2015) * ERYTHROCYTE SEDIMENTATION RATE(Performed 05/25/2015) * DNA ANTIBODY DOUBLE STRANDED(Performed 05/25/2015) * DNA ANTIBODY DS CRITHIDIA IFA(Performed 05/25/2015) * COMPREHENSIVE METABOLIC PANEL(Performed 05/13/2015) * CBC W AUTO DIFFERENTIAL(Performed 05/13/2015) * C-REACTIVE PROTEIN(Performed 05/13/2015) * DNA ANTIBODY DOUBLE STRANDED(Performed 05/13/2015) * COMPLEMENT C4(Performed 05/13/2015) * ERYTHROCYTE SEDIMENTATION RATE(Performed 05/13/2015) * URINALYSIS W/MICROSCOPIC REFLEX TO CULTURE(Performed 05/13/2015) * DNA ANTIBODY DS CRITHIDIA IFA(Performed 05/13/2015) * HISTONE ANTIBODY(Performed 03/31/2015) * CARDIOLIPIN ANTIBODY IGA(Performed 03/31/2015) * CARDIOLIPIN ANTIBODY IGG(Performed 03/31/2015) * CARDIOLIPIN ANTIBODY IGM(Performed 03/31/2015) * BETA-2 GLYCOPROTEIN 1 ANTIBODY IGG(Performed 03/31/2015) * BETA-2 GLYCOPROTEIN 1 ANTIBODY IGM(Performed 03/31/2015) * DNA ANTIBODY DS CRITHIDIA TITER(Performed 03/31/2015) * QUANTIFERON TB-GOLD (CLIENT INCUBATED)(Performed 03/31/2015) * COMPLEMENT TOTAL(Performed 03/31/2015) * ALDOLASE(Performed 03/31/2015) * CHROMATIN ANTIBODY(Performed 03/31/2015) * LUPUS ANTICOAGULANT PANEL(Performed 03/31/2015) * SS-A (SJOGREN'S) ANTIBODY(Performed 03/31/2015) * MEDICAL ASSEMBLY ANTIBODY(Performed 03/31/2015) * SS-B (SJOGREN'S) ANTIBODY(Performed 03/31/2015) * ROGERS (SM) ANTIBODY KARTHIKEYAN(Performed 03/31/2015) * JEAN-PAUL W/REFLEX IFA PATTERN(Performed 03/31/2015) * DNA ANTIBODY DOUBLE STRANDED(Performed 03/31/2015) * SCLERODERMA 70 (SCL) ANTIBODY(Performed 03/31/2015) * VITAMIN D 25-HYDROXY(Performed 03/31/2015) * COMPLEMENT C3(Performed 03/31/2015) * COMPLEMENT C4(Performed 03/31/2015) * CK BLOOD(Performed 03/31/2015) * LDH BLOOD(Performed 03/31/2015) * COMPREHENSIVE METABOLIC PANEL(Performed 03/31/2015) * C-REACTIVE PROTEIN(Performed 03/31/2015) * ERYTHROCYTE SEDIMENTATION RATE(Performed 03/31/2015) * CBC W AUTO DIFFERENTIAL(Performed 03/31/2015) * URINALYSIS W/MICROSCOPIC NO CULTURE(Performed 03/31/2015) * CULTURE URINE(Performed 03/31/2015) * TY STAINING PATTERNS REFLEXED(Performed 03/31/2015) * JEAN-PAUL BLOOD SCREEN W/REFLEX TITER(Performed 03/31/2015) * CBC W AUTO DIFFERENTIAL(Performed 03/31/2015) * XR CHEST 2VW(Performed 03/31/2015) * US TRANSVAGINAL NON OB(Performed 03/25/2015) * US PELVIS COMPLETE(Performed 03/25/2015) * CT ABDOMEN PELVIS WO CONTRAST(Performed 03/25/2015) * HCG URINE QUALITATIVE - POCT (IP) SLH(Performed 03/25/2015) * HCG URINE QUALITATIVE - POCT (IP) SLH(Performed 03/25/2015) * URINALYSIS REFLEX TO MICROSCOPIC NO CULTURE(Performed 03/25/2015) * LIPASE BLOOD(Performed 03/25/2015) * COMPREHENSIVE METABOLIC PANEL(Performed 03/25/2015) * DRUG ABUSE PANEL 10-20+ETHANOL URINE NO CONFIRM(Performed 03/25/2015) * CBC W AUTO DIFFERENTIAL(Performed 03/25/2015) * CBC W AUTO DIFFERENTIAL(Performed 03/25/2015) * COMPREHENSIVE METABOLIC PANEL(Performed 08/23/2014) * PHOSPHORUS BLOOD(Performed 08/23/2014) * MAGNESIUM BLOOD(Performed 08/23/2014) * CBC W AUTO DIFFERENTIAL(Performed 08/23/2014) * CBC W AUTO DIFFERENTIAL(Performed 08/23/2014) * CBC W AUTO DIFFERENTIAL(Performed 08/22/2014) * CBC W AUTO DIFFERENTIAL(Performed 08/22/2014) * COMPREHENSIVE METABOLIC PANEL(Performed 08/22/2014) * PHOSPHORUS BLOOD(Performed 08/22/2014) * MAGNESIUM BLOOD(Performed 08/22/2014) * CULTURE BLOOD(Performed 08/22/2014) * LACTOFERRIN FECAL QUALITATIVE(Performed 08/21/2014) * CULTURE STOOL+ E COLI SHIGA-LIKE TOXIN(Performed 08/21/2014) * C DIFFICILE GDH AG + TOXIN A+B(Performed 08/21/2014) * CULTURE URINE(Performed 08/21/2014) * URINALYSIS W/MICROSCOPIC NO CULTURE(Performed 08/21/2014) * CK + CKMB PANEL(Performed 08/21/2014) * TROPONIN I(Performed 08/21/2014) * PHOSPHORUS BLOOD(Performed 08/21/2014) * MAGNESIUM BLOOD(Performed 08/21/2014) * LIPASE BLOOD(Performed 08/21/2014) * COMPREHENSIVE METABOLIC PANEL(Performed 08/21/2014) * PT-INR SLH(Performed 08/21/2014) * CBC W AUTO DIFFERENTIAL(Performed 08/21/2014) * CBC W AUTO DIFFERENTIAL(Performed 08/21/2014) * ECHO COMPLETE(Performed 08/21/2014) * EKG 12-LEAD(Performed 08/21/2014) * HCG URINE QUALITATIVE - POCT (IP) SLH(Performed 08/18/2014) * MRI ABDOMEN W MRCP WWO CONT W3D(Performed 08/07/2014) * C-REACTIVE PROTEIN(Performed 07/16/2014) * COMPLEMENT C4(Performed 07/16/2014) * DNA ANTIBODY DOUBLE STRANDED(Performed 07/16/2014) * CBC W AUTO DIFFERENTIAL(Performed 07/16/2014) * URINALYSIS W/MICROSCOPIC REFLEX TO CULTURE(Performed 07/16/2014) * ERYTHROCYTE SEDIMENTATION RATE(Performed 07/16/2014) * DNA ANTIBODY DS CRITHIDIA IFA(Performed 07/16/2014) * COMPREHENSIVE METABOLIC PANEL(Performed 07/16/2014) * DNA ANTIBODY DOUBLE STRANDED(Performed 07/16/2014) * C-REACTIVE PROTEIN(Performed 07/16/2014) * COMPLEMENT C4(Performed 07/16/2014) * URINALYSIS W/MICROSCOPIC REFLEX TO CULTURE(Performed 07/16/2014) * ERYTHROCYTE SEDIMENTATION RATE(Performed 07/16/2014) * COMPREHENSIVE METABOLIC PANEL(Performed 07/16/2014) * CBC W AUTO DIFFERENTIAL(Performed 07/16/2014) * CULTURE URINE(Performed 07/16/2014) * CULTURE URINE REFLEXED(Performed 07/16/2014) * HCG URINE QUALITATIVE - POCT (IP) SLH(Performed 06/20/2014) * URINALYSIS REFLEX TO MICROSCOPIC NO CULTURE(Performed 06/20/2014) * LIPASE BLOOD(Performed 06/20/2014) * COMPREHENSIVE METABOLIC PANEL(Performed 06/20/2014) * LACTIC ACID BLOOD(Performed 06/20/2014) * PTT [facility](Performed 06/20/2014) * PT-INR [facility](Performed 06/20/2014) * CBC W AUTO DIFFERENTIAL(Performed 06/20/2014) * CBC W AUTO DIFFERENTIAL(Performed 06/20/2014) * XR CHEST 2VW(Performed 06/20/2014) * DNA ANTIBODY DS CRITHIDIA TITER(Performed 10/07/2013) * DNA (DS) ANTIBODY RFLEX IFA(Performed 10/07/2013) * C-REACTIVE PROTEIN(Performed 10/07/2013) * ERYTHROCYTE SEDIMENTATION RATE(Performed 10/07/2013) * URINALYSIS W/MICROSCOPIC NO CULTURE(Performed 10/07/2013) * COMPLEMENT C4(Performed 10/07/2013) * COMPREHENSIVE METABOLIC PANEL(Performed 10/07/2013) * CBC W AUTO DIFFERENTIAL(Performed 10/07/2013) * CBC W AUTO DIFFERENTIAL(Performed 10/07/2013) * DNA ANTIBODY DS CRITHIDIA TITER(Performed 08/21/2013) * DNA ANTIBODY DOUBLE STRANDED(Performed 08/21/2013) * DNA (DS) ANTIBODY RFLEX IFA(Performed 08/21/2013) * ERYTHROCYTE SEDIMENTATION RATE(Performed 08/21/2013) * C-REACTIVE PROTEIN(Performed 08/21/2013) * COMPREHENSIVE METABOLIC PANEL(Performed 08/21/2013) * COMPLEMENT C4(Performed 08/21/2013) * COMPLEMENT C3(Performed 08/21/2013) * URINALYSIS W/MICROSCOPIC NO CULTURE(Performed 08/21/2013) * CBC W AUTO DIFFERENTIAL(Performed 08/21/2013) * CBC W AUTO DIFFERENTIAL(Performed 08/21/2013) * PT-INR [facility](Performed 08/21/2013) * DNA ANTIBODY DOUBLE STRANDED(Performed 08/07/2013) * C-REACTIVE PROTEIN(Performed 08/07/2013) * COMPLEMENT C4(Performed 08/07/2013) * COMPLEMENT C3(Performed 08/07/2013) * PT-INR [facility](Performed 08/07/2013) * ERYTHROCYTE SEDIMENTATION RATE(Performed 08/07/2013) * COMPREHENSIVE METABOLIC PANEL(Performed 08/07/2013) * URINALYSIS W/MICROSCOPIC REFLEX TO CULTURE(Performed 08/07/2013) * CBC W AUTO DIFFERENTIAL(Performed 08/07/2013) * CULTURE URINE(Performed 08/07/2013) * CULTURE URINE REFLEXED(Performed 08/07/2013) * DNA ANTIBODY DOUBLE STRANDED(Performed 07/24/2013) * ERYTHROCYTE SEDIMENTATION RATE(Performed 07/24/2013) * C-REACTIVE PROTEIN(Performed 07/24/2013) * COMPLEMENT C4(Performed 07/24/2013) * COMPLEMENT C3(Performed 07/24/2013) * COMPREHENSIVE METABOLIC PANEL(Performed 07/24/2013) * CBC W AUTO DIFFERENTIAL(Performed 07/24/2013) * CBC W AUTO DIFFERENTIAL(Performed 07/24/2013) * URINALYSIS W/MICROSCOPIC NO CULTURE(Performed 07/24/2013) * DNA ANTIBODY DOUBLE STRANDED(Performed 07/10/2013) * C-REACTIVE PROTEIN(Performed 07/10/2013) * ERYTHROCYTE SEDIMENTATION RATE(Performed 07/10/2013) * COMPLEMENT C4(Performed 07/10/2013) * COMPLEMENT C3(Performed 07/10/2013) * COMPREHENSIVE METABOLIC PANEL(Performed 07/10/2013) * URINALYSIS W/MICROSCOPIC NO CULTURE(Performed 07/10/2013) * CBC W AUTO DIFFERENTIAL(Performed 07/10/2013) * DNA ANTIBODY DOUBLE STRANDED(Performed 06/26/2013) * ERYTHROCYTE SEDIMENTATION RATE(Performed 06/26/2013) * PT-INR [facility](Performed 06/26/2013) * C-REACTIVE PROTEIN(Performed 06/26/2013) * COMPREHENSIVE METABOLIC PANEL(Performed 06/26/2013) * URINALYSIS W/MICROSCOPIC NO CULTURE(Performed 06/26/2013) * COMPLEMENT C4(Performed 06/26/2013) * COMPLEMENT C3(Performed 06/26/2013) * CBC W AUTO DIFFERENTIAL(Performed 06/26/2013) * CULTURE URINE(Performed 06/26/2013) * DNA ANTIBODY DOUBLE STRANDED(Performed 06/12/2013) * C-REACTIVE PROTEIN(Performed 06/12/2013) * COMPLEMENT C4(Performed 06/12/2013) * COMPLEMENT C3(Performed 06/12/2013) * COMPREHENSIVE METABOLIC PANEL(Performed 06/12/2013) * URINALYSIS W/MICROSCOPIC REFLEX TO CULTURE(Performed 06/12/2013) * CBC W AUTO DIFFERENTIAL(Performed 06/12/2013) * PT-INR [facility](Performed 06/12/2013) * ERYTHROCYTE SEDIMENTATION RATE(Performed 06/12/2013) * CULTURE URINE REFLEXED(Performed 06/12/2013) * DNA ANTIBODY DS CRITHIDIA IFA(Performed 05/29/2013) * C-REACTIVE PROTEIN(Performed 05/29/2013) * COMPLEMENT C4(Performed 05/29/2013) * COMPREHENSIVE METABOLIC PANEL(Performed 05/29/2013) * ERYTHROCYTE SEDIMENTATION RATE(Performed 05/29/2013) * URINALYSIS W/MICROSCOPIC REFLEX TO CULTURE(Performed 05/29/2013) * PT-INR [facility](Performed 05/29/2013) * CBC W AUTO DIFFERENTIAL(Performed 05/29/2013) * CULTURE URINE REFLEXED(Performed 05/29/2013) * DNA ANTIBODY DOUBLE STRANDED(Performed 05/13/2013) * C-REACTIVE PROTEIN(Performed 05/13/2013) * COMPLEMENT C4(Performed 05/13/2013) * COMPLEMENT C3(Performed 05/13/2013) * URINALYSIS W/MICROSCOPIC REFLEX TO CULTURE(Performed 05/13/2013) * ERYTHROCYTE SEDIMENTATION RATE(Performed 05/13/2013) * PT-INR [facility](Performed 05/13/2013) * COMPREHENSIVE METABOLIC PANEL(Performed 05/13/2013) * CBC W AUTO DIFFERENTIAL(Performed 05/13/2013) * CULTURE URINE REFLEXED(Performed 05/13/2013) * PT-INR [facility](Performed 05/08/2013) * PT-INR [facility](Performed 05/01/2013) * DNA ANTIBODY DS CRITHIDIA IFA(Performed 04/24/2013) * C-REACTIVE PROTEIN(Performed 04/24/2013) * DNA ANTIBODY DOUBLE STRANDED(Performed 04/24/2013) * COMPLEMENT C3(Performed 04/24/2013) * COMPLEMENT C4(Performed 04/24/2013) * ERYTHROCYTE SEDIMENTATION RATE(Performed 04/24/2013) * COMPREHENSIVE METABOLIC PANEL(Performed 04/24/2013) * URINALYSIS W/MICROSCOPIC REFLEX TO CULTURE(Performed 04/24/2013) * PT-INR [facility](Performed 04/24/2013) * CBC W AUTO DIFFERENTIAL(Performed 04/24/2013) * CULTURE URINE REFLEXED(Performed 04/24/2013) * MICROALB/CREAT RATIO URINE RANDOM PANEL(Performed 04/24/2013) * DNA ANTIBODY DS CRITHIDIA IFA(Performed 04/17/2013) * C-REACTIVE PROTEIN(Performed 04/17/2013) * COMPLEMENT C4(Performed 04/17/2013) * URINALYSIS W/MICROSCOPIC REFLEX TO CULTURE(Performed 04/17/2013) * COMPREHENSIVE METABOLIC PANEL(Performed 04/17/2013) * ERYTHROCYTE SEDIMENTATION RATE(Performed 04/17/2013) * PT-INR SLH(Performed 04/17/2013) * CBC W AUTO DIFFERENTIAL(Performed 04/17/2013) * CULTURE URINE(Performed 04/17/2013) * CULTURE URINE REFLEXED(Performed 04/17/2013) * BASIC METABOLIC PANEL (CALCIUM TOTAL)(Performed 03/06/2013) * PHOSPHORUS BLOOD(Performed 03/06/2013) * MAGNESIUM BLOOD(Performed 03/06/2013) * CBC W/O DIFFERENTIAL(Performed 03/06/2013) * LIPASE BLOOD(Performed 03/05/2013) * AMYLASE BLOOD(Performed 03/05/2013) * BASIC METABOLIC PANEL (CALCIUM TOTAL)(Performed 03/05/2013) * PHOSPHORUS BLOOD(Performed 03/05/2013) * MAGNESIUM BLOOD(Performed 03/05/2013) * PT-INR SLH(Performed 03/05/2013) * CBC W/O DIFFERENTIAL(Performed 03/05/2013) * EKG 12-LEAD(Performed 03/05/2013) * GLUCOSE ACCUCHECK(Performed 03/04/2013) * VAS BILATERAL VENOUS DUPLEX LE(Performed 03/04/2013) * GLUCOSE ACCUCHECK(Performed 03/04/2013) * TRANSFERRIN(Performed 03/04/2013) * C-REACTIVE PROTEIN(Performed 03/04/2013) * PREALBUMIN(Performed 03/04/2013) * BASIC METABOLIC PANEL (CALCIUM TOTAL)(Performed 03/04/2013) * PHOSPHORUS BLOOD(Performed 03/04/2013) * MAGNESIUM BLOOD(Performed 03/04/2013) * PT-INR SLH(Performed 03/04/2013) * CBC W/O DIFFERENTIAL(Performed 03/04/2013) * GLUCOSE ACCUCHECK(Performed 03/03/2013) * GLUCOSE ACCUCHECK(Performed 03/03/2013) * GLUCOSE ACCUCHECK(Performed 03/03/2013) * GLUCOSE ACCUCHECK(Performed 03/03/2013) * LIPASE BLOOD(Performed 03/03/2013) * AMYLASE BLOOD(Performed 03/03/2013) * PHOSPHORUS BLOOD(Performed 03/03/2013) * MAGNESIUM BLOOD(Performed 03/03/2013) * BASIC METABOLIC PANEL (CALCIUM TOTAL)(Performed 03/03/2013) * PT-INR SLH(Performed 03/03/2013) * CBC W/O DIFFERENTIAL(Performed 03/03/2013) * GLUCOSE ACCUCHECK(Performed 03/02/2013) * GLUCOSE ACCUCHECK(Performed 03/02/2013) * C DIFFICILE GDH AG + TOXIN A+B(Performed 03/02/2013) * GLUCOSE ACCUCHECK(Performed 03/02/2013) * GLUCOSE ACCUCHECK(Performed 03/02/2013) * BASIC METABOLIC PANEL (CALCIUM TOTAL)(Performed 03/02/2013) * PHOSPHORUS BLOOD(Performed 03/02/2013) * MAGNESIUM BLOOD(Performed 03/02/2013) * CBC W/O DIFFERENTIAL(Performed 03/02/2013) * PT-INR SLH(Performed 03/02/2013) * GLUCOSE ACCUCHECK(Performed 03/01/2013) * GLUCOSE ACCUCHECK(Performed 03/01/2013) * GLUCOSE ACCUCHECK(Performed 03/01/2013) * GLUCOSE ACCUCHECK(Performed 03/01/2013) * PHOSPHORUS BLOOD(Performed 03/01/2013) * MAGNESIUM BLOOD(Performed 03/01/2013) * BASIC METABOLIC PANEL (CALCIUM TOTAL)(Performed 03/01/2013) * PT-INR SLH(Performed 03/01/2013) * CBC W/O DIFFERENTIAL(Performed 03/01/2013) * GLUCOSE ACCUCHECK(Performed 02/28/2013) * GLUCOSE ACCUCHECK(Performed 02/28/2013) * EKG 12-LEAD(Performed 02/28/2013) * EKG 12-LEAD(Performed 02/28/2013) * GLUCOSE ACCUCHECK(Performed 02/28/2013) * DNA ANTIBODY DOUBLE STRANDED(Performed 02/28/2013) * C-REACTIVE PROTEIN(Performed 02/28/2013) * COMPLEMENT C4(Performed 02/28/2013) * COMPLEMENT C3(Performed 02/28/2013) * ERYTHROCYTE SEDIMENTATION RATE(Performed 02/28/2013) * GLUCOSE ACCUCHECK(Performed 02/28/2013) * CBC W/O DIFFERENTIAL(Performed 02/28/2013) * LACTIC ACID BLOOD(Performed 02/28/2013) * GLUCOSE ACCUCHECK(Performed 02/27/2013) * GLUCOSE ACCUCHECK(Performed 02/27/2013) * GLUCOSE ACCUCHECK(Performed 02/27/2013) * GLUCOSE ACCUCHECK(Performed 02/27/2013) * PHOSPHORUS BLOOD(Performed 02/27/2013) * MAGNESIUM BLOOD(Performed 02/27/2013) * COMPREHENSIVE METABOLIC PANEL(Performed 02/27/2013) * LACTIC ACID BLOOD(Performed 02/27/2013) * CBC W/O DIFFERENTIAL(Performed 02/27/2013) * PT-INR SLH(Performed 02/27/2013) * GLUCOSE ACCUCHECK(Performed 02/26/2013) * GLUCOSE ACCUCHECK(Performed 02/26/2013) * GLUCOSE ACCUCHECK(Performed 02/26/2013) * VAS BILATERAL VENOUS DUPLEX LE(Performed 02/26/2013) * PT-INR [facility](Performed 02/26/2013) * PHOSPHORUS BLOOD(Performed 02/26/2013) * MAGNESIUM BLOOD(Performed 02/26/2013) * COMPREHENSIVE METABOLIC PANEL(Performed 02/26/2013) * CBC W/O DIFFERENTIAL(Performed 02/26/2013) * LACTIC ACID BLOOD(Performed 02/26/2013) * GLUCOSE ACCUCHECK(Performed 02/26/2013) * GLUCOSE ACCUCHECK(Performed 02/26/2013) * GLUCOSE ACCUCHECK(Performed 02/25/2013) * GLUCOSE ACCUCHECK(Performed 02/25/2013) * IR US GUIDE VASCULAR ACCESS(Performed 02/25/2013) * IR PICC LINE INSERT(Performed 02/25/2013) * IR PICC LINE INSERT(Performed 02/25/2013) * GLUCOSE ACCUCHECK(Performed 02/25/2013) * C-REACTIVE PROTEIN(Performed 02/25/2013) * GLUCOSE ACCUCHECK(Performed 02/25/2013) * PHOSPHORUS BLOOD(Performed 02/25/2013) * MAGNESIUM BLOOD(Performed 02/25/2013) * COMPREHENSIVE METABOLIC PANEL(Performed 02/25/2013) * LACTIC ACID BLOOD(Performed 02/25/2013) * TRANSFERRIN(Performed 02/25/2013) * PREALBUMIN(Performed 02/25/2013) * CBC W/O DIFFERENTIAL(Performed 02/25/2013) * PT-INR [facility](Performed 02/25/2013) * GLUCOSE ACCUCHECK(Performed 02/24/2013) * GLUCOSE ACCUCHECK(Performed 02/24/2013) * GLUCOSE ACCUCHECK(Performed 02/24/2013) * LACTIC ACID BLOOD(Performed 02/24/2013) * PHOSPHORUS BLOOD(Performed 02/24/2013) * MAGNESIUM BLOOD(Performed 02/24/2013) * COMPREHENSIVE METABOLIC PANEL(Performed 02/24/2013) * PT-INR [facility](Performed 02/24/2013) * CBC W/O DIFFERENTIAL(Performed 02/24/2013) * GLUCOSE ACCUCHECK(Performed 02/23/2013) * GLUCOSE ACCUCHECK(Performed 02/23/2013) * GLUCOSE ACCUCHECK(Performed 02/23/2013) * PHOSPHORUS BLOOD(Performed 02/23/2013) * MAGNESIUM BLOOD(Performed 02/23/2013) * COMPREHENSIVE METABOLIC PANEL(Performed 02/23/2013) * LACTIC ACID BLOOD(Performed 02/23/2013) * PT-INR [facility](Performed 02/23/2013) * CBC W/O DIFFERENTIAL(Performed 02/23/2013) * GLUCOSE ACCUCHECK(Performed 02/22/2013) * EKG 12-LEAD(Performed 02/22/2013) * GLUCOSE ACCUCHECK(Performed 02/22/2013) * GLUCOSE ACCUCHECK(Performed 02/22/2013) * GLUCOSE ACCUCHECK(Performed 02/22/2013) * LIPASE BLOOD(Performed 02/22/2013) * AMYLASE BLOOD(Performed 02/22/2013) * CBC W/O DIFFERENTIAL(Performed 02/22/2013) * PHOSPHORUS BLOOD(Performed 02/22/2013) * MAGNESIUM BLOOD(Performed 02/22/2013) * COMPREHENSIVE METABOLIC PANEL(Performed 02/22/2013) * LACTIC ACID BLOOD(Performed 02/22/2013) * PT-INR SLH(Performed 02/22/2013) * GLUCOSE ACCUCHECK(Performed 02/21/2013) * GLUCOSE ACCUCHECK(Performed 02/21/2013) * GLUCOSE ACCUCHECK(Performed 02/21/2013) * GLUCOSE ACCUCHECK(Performed 02/21/2013) * BLOOD GASES ARTERIAL(Performed 02/21/2013) * GLUCOSE ACCUCHECK(Performed 02/21/2013) * XR CHEST 1VW PORTABLE(Performed 02/21/2013) * GLUCOSE ACCUCHECK(Performed 02/21/2013) * PHOSPHORUS BLOOD(Performed 02/21/2013) * MAGNESIUM BLOOD(Performed 02/21/2013) * COMPREHENSIVE METABOLIC PANEL(Performed 02/21/2013) * CBC W/O DIFFERENTIAL(Performed 02/21/2013) * LACTIC ACID BLOOD(Performed 02/21/2013) * PT-INR [facility](Performed 02/21/2013) * CALCIUM IONIZED WHOLE BLOOD(Performed 02/21/2013) * BLOOD GASES ARTERIAL(Performed 02/21/2013) * GLUCOSE ACCUCHECK(Performed 02/20/2013) * BLOOD GASES ARTERIAL(Performed 02/20/2013) * GLUCOSE ACCUCHECK(Performed 02/20/2013) * XR CHEST 1VW PORTABLE(Performed 02/20/2013) * BLOOD GASES ARTERIAL(Performed 02/20/2013) * PHOSPHORUS BLOOD(Performed 02/20/2013) * MAGNESIUM BLOOD(Performed 02/20/2013) * COMPREHENSIVE METABOLIC PANEL(Performed 02/20/2013) * LACTIC ACID BLOOD(Performed 02/20/2013) * PT-INR [facility](Performed 02/20/2013) * CBC W/O DIFFERENTIAL(Performed 02/20/2013) * GLUCOSE ACCUCHECK(Performed 02/20/2013) * XR ABDOMEN KUB PORTABLE(Performed 02/20/2013) * XR CHEST 1VW PORTABLE(Performed 02/20/2013) * GLUCOSE ACCUCHECK(Performed 02/20/2013) * XR CHEST 1VW PORTABLE(Performed 02/20/2013) * CBC W/O DIFFERENTIAL(Performed 02/20/2013) * BLOOD GASES ARTERIAL(Performed 02/20/2013) * GLUCOSE ACCUCHECK(Performed 02/20/2013) * GLUCOSE ACCUCHECK(Performed 02/20/2013) * COMPREHENSIVE METABOLIC PANEL(Performed 02/20/2013) * PHOSPHORUS BLOOD(Performed 02/20/2013) * MAGNESIUM BLOOD(Performed 02/20/2013) * CBC W/O DIFFERENTIAL(Performed 02/20/2013) * LACTIC ACID BLOOD(Performed 02/20/2013) * PT-INR [facility](Performed 02/20/2013) * CALCIUM IONIZED WHOLE BLOOD(Performed 02/20/2013) * BLOOD GASES ARTERIAL(Performed 02/20/2013) * GLUCOSE ACCUCHECK(Performed 02/19/2013) * BLOOD GASES ARTERIAL(Performed 02/19/2013) * URINALYSIS W/MICROSCOPIC NO CULTURE(Performed 02/19/2013) * CULTURE BLOOD(Performed 02/19/2013) * CULTURE URINE(Performed 02/19/2013) * CULTURE SPUTUM+GRAM STAIN(Performed 02/19/2013) * CULTURE BLOOD(Performed 02/19/2013) * GLUCOSE ACCUCHECK(Performed 02/19/2013) * EKG 12-LEAD(Performed 02/19/2013) * BLOOD GASES ARTERIAL(Performed 02/19/2013) * CALCIUM IONIZED WHOLE BLOOD(Performed 02/19/2013) * COMPREHENSIVE METABOLIC PANEL(Performed 02/19/2013) * PHOSPHORUS BLOOD(Performed 02/19/2013) * MAGNESIUM BLOOD(Performed 02/19/2013) * LACTIC ACID BLOOD(Performed 02/19/2013) * PT-INR [facility](Performed 02/19/2013) * CBC W/O DIFFERENTIAL(Performed 02/19/2013) * GLUCOSE ACCUCHECK(Performed 02/19/2013) * BLOOD GASES ARTERIAL(Performed 02/19/2013) * GLUCOSE ACCUCHECK(Performed 02/19/2013) * XR CHEST 1VW PORTABLE(Performed 02/19/2013) * GLUCOSE ACCUCHECK(Performed 02/19/2013) * LACTIC ACID BLOOD(Performed 02/19/2013) * COMPREHENSIVE METABOLIC PANEL(Performed 02/19/2013) * PHOSPHORUS BLOOD(Performed 02/19/2013) * MAGNESIUM BLOOD(Performed 02/19/2013) * PT-INR [facility](Performed 02/19/2013) * CBC W/O DIFFERENTIAL(Performed 02/19/2013) * CALCIUM IONIZED WHOLE BLOOD(Performed 02/19/2013) * BLOOD GASES ARTERIAL(Performed 02/19/2013) * GLUCOSE ACCUCHECK(Performed 02/18/2013) * BLOOD GASES ARTERIAL(Performed 02/18/2013) * LACTIC ACID BLOOD(Performed 02/18/2013) * PT-INR [facility](Performed 02/18/2013) * CBC W/O DIFFERENTIAL(Performed 02/18/2013) * PHOSPHORUS BLOOD(Performed 02/18/2013) * MAGNESIUM BLOOD(Performed 02/18/2013) * COMPREHENSIVE METABOLIC PANEL(Performed 02/18/2013) * BLOOD GASES SEVERIANO(Performed 02/18/2013) * CALCIUM IONIZED WHOLE BLOOD(Performed 02/18/2013) * CHLORIDE WHOLE BLOOD(Performed 02/18/2013) * POTASSIUM WHOLE BLD(Performed 02/18/2013) * GLUCOSE WHOLE BLOOD(Performed 02/18/2013) * LACTIC ACID WHOLE BLOOD(Performed 02/18/2013) * SODIUM WHOLE BLOOD(Performed 02/18/2013) * BLOOD GASES ARTERIAL(Performed 02/18/2013) * EKG 12-LEAD(Performed 02/18/2013) * GLUCOSE ACCUCHECK(Performed 02/18/2013) * CT HEAD WO CONTRAST(Performed 02/18/2013) * BLOOD GASES ARTERIAL(Performed 02/18/2013) * TRANSFERRIN(Performed 02/18/2013) * C-REACTIVE PROTEIN(Performed 02/18/2013) * PREALBUMIN(Performed 02/18/2013) * GLUCOSE ACCUCHECK(Performed 02/18/2013) * XR CHEST 1VW PORTABLE(Performed 02/18/2013) * CALCIUM IONIZED WHOLE BLOOD(Performed 02/18/2013) * BLOOD GASES ARTERIAL(Performed 02/18/2013) * PT-INR SLH(Performed 02/18/2013) * COMPREHENSIVE METABOLIC PANEL(Performed 02/18/2013) * PHOSPHORUS BLOOD(Performed 02/18/2013) * MAGNESIUM BLOOD(Performed 02/18/2013) * LACTIC ACID BLOOD(Performed 02/18/2013) * CBC W/O DIFFERENTIAL(Performed 02/18/2013) * GLUCOSE ACCUCHECK(Performed 02/18/2013) * ECHO COMPLETE(Performed 02/18/2013) * GLUCOSE ACCUCHECK(Performed 02/17/2013) * BLOOD GASES ARTERIAL(Performed 02/17/2013) * CALCIUM IONIZED WHOLE BLOOD(Performed 02/17/2013) * BLOOD GASES ARTERIAL(Performed 02/17/2013) * PT-INR [facility](Performed 02/17/2013) * PHOSPHORUS BLOOD(Performed 02/17/2013) * MAGNESIUM BLOOD(Performed 02/17/2013) * COMPREHENSIVE METABOLIC PANEL(Performed 02/17/2013) * LACTIC ACID BLOOD(Performed 02/17/2013) * CBC W/O DIFFERENTIAL(Performed 02/17/2013) * GLUCOSE ACCUCHECK(Performed 02/17/2013) * BLOOD GASES ARTERIAL(Performed 02/17/2013) * XR CHEST 1VW PORTABLE(Performed 02/17/2013) * GLUCOSE ACCUCHECK(Performed 02/17/2013) * SVO2 FOR RECALIBRATION(Performed 02/17/2013) * COMPREHENSIVE METABOLIC PANEL(Performed 02/17/2013) * PHOSPHORUS BLOOD(Performed 02/17/2013) * MAGNESIUM BLOOD(Performed 02/17/2013) * LACTIC ACID BLOOD(Performed 02/17/2013) * PT-INR SLH(Performed 02/17/2013) * CBC W/O DIFFERENTIAL(Performed 02/17/2013) * BLOOD GASES ARTERIAL(Performed 02/17/2013) * CALCIUM IONIZED WHOLE BLOOD(Performed 02/17/2013) * BLOOD GASES ARTERIAL(Performed 02/16/2013) * GLUCOSE ACCUCHECK(Performed 02/16/2013) * GLUCOSE ACCUCHECK(Performed 02/16/2013) * BLOOD GASES ARTERIAL(Performed 02/16/2013) * PHOSPHORUS BLOOD(Performed 02/16/2013) * MAGNESIUM BLOOD(Performed 02/16/2013) * COMPREHENSIVE METABOLIC PANEL(Performed 02/16/2013) * PT-INR [facility](Performed 02/16/2013) * CBC W/O DIFFERENTIAL(Performed 02/16/2013) * LACTIC ACID BLOOD(Performed 02/16/2013) * CALCIUM IONIZED WHOLE BLOOD(Performed 02/16/2013) * BLOOD GASES ARTERIAL(Performed 02/16/2013) * GLUCOSE ACCUCHECK(Performed 02/16/2013) * PT-INR [facility](Performed 02/16/2013) * MAGNESIUM BLOOD(Performed 02/16/2013) * COMPREHENSIVE METABOLIC PANEL(Performed 02/16/2013) * PHOSPHORUS BLOOD(Performed 02/16/2013) * CBC W/O DIFFERENTIAL(Performed 02/16/2013) * CALCIUM IONIZED WHOLE BLOOD(Performed 02/16/2013) * BLOOD GASES ARTERIAL(Performed 02/16/2013) * GLUCOSE ACCUCHECK(Performed 02/16/2013) * LACTIC ACID BLOOD(Performed 02/16/2013) * LACTIC ACID BLOOD(Performed 02/16/2013) * COMPREHENSIVE METABOLIC PANEL(Performed 02/16/2013) * PHOSPHORUS BLOOD(Performed 02/16/2013) * MAGNESIUM BLOOD(Performed 02/16/2013) * CALCIUM IONIZED WHOLE BLOOD(Performed 02/16/2013) * BLOOD GASES ARTERIAL(Performed 02/16/2013) * PT-INR [facility](Performed 02/16/2013) * CBC W/O DIFFERENTIAL(Performed 02/16/2013) * GLUCOSE ACCUCHECK(Performed 02/15/2013) * GLUCOSE ACCUCHECK(Performed 02/15/2013) * TYPE + SCREEN PANEL(Performed 02/15/2013) * CROSSMATCH RBC LEUKOREDUCED(Performed 02/15/2013) * TYPE + SCREEN PANEL(Performed 02/15/2013) * LACTIC ACID BLOOD(Performed 02/15/2013) * PHOSPHORUS BLOOD(Performed 02/15/2013) * MAGNESIUM BLOOD(Performed 02/15/2013) * COMPREHENSIVE METABOLIC PANEL(Performed 02/15/2013) * PT-INR [facility](Performed 02/15/2013) * CBC W/O DIFFERENTIAL(Performed 02/15/2013) * CALCIUM IONIZED WHOLE BLOOD(Performed 02/15/2013) * BLOOD GASES ARTERIAL(Performed 02/15/2013) * GLUCOSE ACCUCHECK(Performed 02/15/2013) * BLOOD GASES ARTERIAL(Performed 02/15/2013) * CALCIUM IONIZED WHOLE BLOOD(Performed 02/15/2013) * LACTIC ACID BLOOD(Performed 02/15/2013) * COMPREHENSIVE METABOLIC PANEL(Performed 02/15/2013) * PHOSPHORUS BLOOD(Performed 02/15/2013) * MAGNESIUM BLOOD(Performed 02/15/2013) * PT-INR [facility](Performed 02/15/2013) * CBC W/O DIFFERENTIAL(Performed 02/15/2013) * GLUCOSE ACCUCHECK(Performed 02/15/2013) * SVO2 FOR RECALIBRATION(Performed 02/15/2013) * LACTIC ACID BLOOD(Performed 02/15/2013) * COMPREHENSIVE METABOLIC PANEL(Performed 02/15/2013) * PHOSPHORUS BLOOD(Performed 02/15/2013) * MAGNESIUM BLOOD(Performed 02/15/2013) * CBC W/O DIFFERENTIAL(Performed 02/15/2013) * PT-INR [facility](Performed 02/15/2013) * BLOOD GASES ARTERIAL(Performed 02/15/2013) * XR CHEST 1VW PORTABLE(Performed 02/15/2013) * BLOOD GASES ARTERIAL(Performed 02/15/2013) * BLOOD GASES SEVERIANO(Performed 02/15/2013) * CALCIUM IONIZED WHOLE BLOOD(Performed 02/15/2013) * GLUCOSE ACCUCHECK(Performed 02/15/2013) * GLUCOSE ACCUCHECK(Performed 02/15/2013) * GLUCOSE ACCUCHECK(Performed 02/15/2013) * CALCIUM IONIZED WHOLE BLOOD(Performed 02/15/2013) * CBC W/O DIFFERENTIAL(Performed 02/15/2013) * BLOOD GASES ARTERIAL(Performed 02/15/2013) * LACTIC ACID BLOOD(Performed 02/15/2013) * COMPREHENSIVE METABOLIC PANEL(Performed 02/15/2013) * PHOSPHORUS BLOOD(Performed 02/15/2013) * MAGNESIUM BLOOD(Performed 02/15/2013) * PT-INR [facility](Performed 02/15/2013) * BLOOD GASES SEVERIANO(Performed 02/14/2013) * BLOOD GASES ARTERIAL(Performed 02/14/2013) * GLUCOSE ACCUCHECK(Performed 02/14/2013) * BLOOD GASES SEVERIANO(Performed 02/14/2013) * BLOOD GASES ARTERIAL(Performed 02/14/2013) * BLOOD GASES ARTERIAL(Performed 02/14/2013) * BLOOD GASES SEVERIANO(Performed 02/14/2013) * BLOOD GASES ARTERIAL(Performed 02/14/2013) * CALCIUM IONIZED WHOLE BLOOD(Performed 02/14/2013) * CBC W/O DIFFERENTIAL(Performed 02/14/2013) * PT-INR [facility](Performed 02/14/2013) * COMPREHENSIVE METABOLIC PANEL(Performed 02/14/2013) * PHOSPHORUS BLOOD(Performed 02/14/2013) * MAGNESIUM BLOOD(Performed 02/14/2013) * LACTIC ACID BLOOD(Performed 02/14/2013) * BLOOD GASES ARTERIAL(Performed 02/14/2013) * BLOOD GASES ARTERIAL(Performed 02/14/2013) * BLOOD GASES ARTERIAL(Performed 02/14/2013) * BLOOD GASES ARTERIAL(Performed 02/14/2013) * COMPREHENSIVE METABOLIC PANEL(Performed 02/14/2013) * PHOSPHORUS BLOOD(Performed 02/14/2013) * MAGNESIUM BLOOD(Performed 02/14/2013) * LACTIC ACID BLOOD(Performed 02/14/2013) * PT-INR SLH(Performed 02/14/2013) * CBC W/O DIFFERENTIAL(Performed 02/14/2013) * BLOOD GASES ARTERIAL(Performed 02/14/2013) * GLUCOSE ACCUCHECK(Performed 02/14/2013) * BLOOD GASES ARTERIAL(Performed 02/14/2013) * LACTIC ACID BLOOD(Performed 02/14/2013) * CBC W/O DIFFERENTIAL(Performed 02/14/2013) * COMPREHENSIVE METABOLIC PANEL(Performed 02/14/2013) * PHOSPHORUS BLOOD(Performed 02/14/2013) * MAGNESIUM BLOOD(Performed 02/14/2013) * PT-INR [facility](Performed 02/14/2013) * CALCIUM IONIZED WHOLE BLOOD(Performed 02/14/2013) * XR CHEST 1VW PORTABLE(Performed 02/14/2013) * GLUCOSE ACCUCHECK(Performed 02/14/2013) * LACTIC ACID BLOOD(Performed 02/14/2013) * PHOSPHORUS BLOOD(Performed 02/14/2013) * MAGNESIUM BLOOD(Performed 02/14/2013) * COMPREHENSIVE METABOLIC PANEL(Performed 02/14/2013) * CBC W/O DIFFERENTIAL(Performed 02/14/2013) * PT-INR [facility](Performed 02/14/2013) * CALCIUM IONIZED WHOLE BLOOD(Performed 02/14/2013) * BLOOD GASES ARTERIAL(Performed 02/14/2013) * GLUCOSE ACCUCHECK(Performed 02/13/2013) * SVO2 FOR RECALIBRATION(Performed 02/13/2013) * GLUCOSE ACCUCHECK(Performed 02/13/2013) * LIPASE BLOOD(Performed 02/13/2013) * COMPREHENSIVE METABOLIC PANEL(Performed 02/13/2013) * PHOSPHORUS BLOOD(Performed 02/13/2013) * MAGNESIUM BLOOD(Performed 02/13/2013) * LACTIC ACID BLOOD(Performed 02/13/2013) * PTT SLH(Performed 02/13/2013) * PT-INR [facility](Performed 02/13/2013) * CBC W/O DIFFERENTIAL(Performed 02/13/2013) * BLOOD GASES ARTERIAL(Performed 02/13/2013) * BLOOD GASES ARTERIAL(Performed 02/13/2013) * GLUCOSE ACCUCHECK(Performed 02/13/2013) * BLOOD GASES ARTERIAL(Performed 02/13/2013) * CBC W/O DIFFERENTIAL(Performed 02/13/2013) * LACTIC ACID BLOOD(Performed 02/13/2013) * COMPREHENSIVE METABOLIC PANEL(Performed 02/13/2013) * PHOSPHORUS BLOOD(Performed 02/13/2013) * MAGNESIUM BLOOD(Performed 02/13/2013) * PTT [facility](Performed 02/13/2013) * PT-INR [facility](Performed 02/13/2013) * GLUCOSE ACCUCHECK(Performed 02/13/2013) * IR PULMONARY ANGIOGRAM BILAT(Performed 02/13/2013) * IR IVC FILTER PLACEMENT(Performed 02/13/2013) * IR VASCULAR CLOSURE DEVICE(Performed 02/13/2013) * IR VISCERAL ANGIO(Performed 02/13/2013) * IR ANGIO EXTREMITY PROCEDURAL CODE(Performed 02/13/2013) * IR ANGIO EXTREMITY PROCEDURAL CODE(Performed 02/13/2013) * IR VISCERAL ANGIO(Performed 02/13/2013) * IR PULMONARY ANGIO PROCEDURAL CODE(Performed 02/13/2013) * PT-INR [facility](Performed 02/13/2013) * PTT [facility](Performed 02/13/2013) * CBC W/O DIFFERENTIAL(Performed 02/13/2013) * BLOOD GASES ARTERIAL(Performed 02/13/2013) * PT-INR [facility](Performed 02/13/2013) * PTT [facility](Performed 02/13/2013) * SVO2 FOR RECALIBRATION(Performed 02/13/2013) * BLOOD GASES ARTERIAL(Performed 02/13/2013) * COMPREHENSIVE METABOLIC PANEL(Performed 02/13/2013) * PHOSPHORUS BLOOD(Performed 02/13/2013) * MAGNESIUM BLOOD(Performed 02/13/2013) * LACTIC ACID BLOOD(Performed 02/13/2013) * CBC W/O DIFFERENTIAL(Performed 02/13/2013) * FIBRINOGEN CLAUSS(Performed 02/13/2013) * PT-INR [facility](Performed 02/13/2013) * PTT [facility](Performed 02/13/2013) * CBC W/O DIFFERENTIAL(Performed 02/13/2013) * PATHOLOGY TISSUE(Performed 02/13/2013) * CULTURE AFB(Performed 02/13/2013) * CULTURE FUNGUS OTHER+FUNGUS SMEAR(Performed 02/13/2013) * VIRAL CULTURE MISC(Performed 02/13/2013) * CULTURE ANAEROBE(Performed 02/13/2013) * CULTURE AEROBIC(Performed 02/13/2013) * FUNGUS SMEAR(Performed 02/13/2013) * AFB SMEAR(Performed 02/13/2013) * GRAM STAIN SMEAR(Performed 02/13/2013) * CULTURE BLOOD(Performed 02/13/2013) * GLUCOSE ACCUCHECK(Performed 02/13/2013) * BLOOD GASES ARTERIAL(Performed 02/13/2013) * LACTIC ACID WHOLE BLOOD(Performed 02/13/2013) * CALCIUM IONIZED WHOLE BLOOD(Performed 02/13/2013) * XR CHEST 1VW PORTABLE(Performed 02/13/2013) * PTT [facility](Performed 02/13/2013) * PT-INR [facility](Performed 02/13/2013) * XR ABDOMEN KUB PORTABLE(Performed 02/13/2013) * XR CHEST 1VW PORTABLE(Performed 02/13/2013) * ECHO COMPLETE(Performed 02/13/2013) * BLOOD GASES ARTERIAL(Performed 02/12/2013) * CBC W AUTO DIFFERENTIAL(Performed 02/12/2013) * LACTIC ACID BLOOD(Performed 02/12/2013) * PT-INR [facility](Performed 02/12/2013) * PTT [facility](Performed 02/12/2013) * PHOSPHORUS BLOOD(Performed 02/12/2013) * MAGNESIUM BLOOD(Performed 02/12/2013) * COMPREHENSIVE METABOLIC PANEL(Performed 02/12/2013) * CULTURE BLOOD(Performed 02/12/2013) * ANTIBODY SCREEN(Performed 02/12/2013) * ANTIBODY SCREEN(Performed 02/12/2013) * BLOOD TYPE ABO+ RH PANEL(Performed 02/12/2013) * CROSSMATCH RBC LEUKOREDUCED(Performed 02/12/2013) * BLOOD TYPE ABO+ RH PANEL(Performed 02/12/2013) * CROSSMATCH RBC LEUKOREDUCED(Performed 02/12/2013) * PREPARE PLATELET PHERESIS UNIT(S)(Performed 02/12/2013) * PREPARE FFP UNIT(S)(Performed 02/12/2013) * CT CHEST ABDOMEN PELVIS W CONT(Performed 02/12/2013) * HCG URINE QUALITATIVE - POCT (IP) [facility](Performed 02/12/2013) * PT-INR [facility](Performed 02/12/2013) * URINALYSIS W/MICROSCOPIC NO CULTURE(Performed 02/12/2013) * BLOOD GASES ARTERIAL(Performed 02/12/2013) * B-TYPE NATRIURETIC PEPTIDE(Performed 02/12/2013) * CK + CKMB PANEL(Performed 02/12/2013) * TROPONIN I(Performed 02/12/2013) * COMPREHENSIVE METABOLIC PANEL(Performed 02/12/2013) * CBC W AUTO DIFFERENTIAL(Performed 02/12/2013) * XR CHEST 1VW PORTABLE(Performed 02/12/2013) * LIPASE BLOOD(Performed 02/12/2013) * AMYLASE BLOOD(Performed 02/12/2013) * BASIC METABOLIC PANEL (CALCIUM TOTAL)(Performed 02/09/2013) * PHOSPHORUS BLOOD(Performed 02/09/2013) * MAGNESIUM BLOOD(Performed 02/09/2013) * PT-INR [facility](Performed 02/09/2013) * PTT [facility](Performed 02/09/2013) * CBC W AUTO DIFFERENTIAL(Performed 02/09/2013) * CBC W AUTO DIFFERENTIAL(Performed 02/08/2013) * FERRITIN(Performed 02/08/2013) * TRANSFERRIN(Performed 02/08/2013) * IRON BLOOD(Performed 02/08/2013) * LACTIC ACID BLOOD(Performed 02/08/2013) * BASIC METABOLIC PANEL (CALCIUM TOTAL)(Performed 02/08/2013) * PHOSPHORUS BLOOD(Performed 02/08/2013) * MAGNESIUM BLOOD(Performed 02/08/2013) * PTT [facility](Performed 02/08/2013) * PT-INR [facility](Performed 02/08/2013) * PT-INR [facility](Performed 02/07/2013) * PTT [facility](Performed 02/07/2013) * CBC W AUTO DIFFERENTIAL(Performed 02/07/2013) * PHOSPHORUS BLOOD(Performed 02/07/2013) * MAGNESIUM BLOOD(Performed 02/07/2013) * BASIC METABOLIC PANEL (CALCIUM TOTAL)(Performed 02/07/2013) * HEMATOCRIT(Performed 02/06/2013) * HEMOGLOBIN(Performed 02/06/2013) * VAS BILATERAL VENOUS DUPLEX LE(Performed 02/06/2013) * PT-INR [facility](Performed 02/06/2013) * PTT [facility](Performed 02/06/2013) * CBC W AUTO DIFFERENTIAL(Performed 02/06/2013) * CK + CKMB PANEL(Performed 02/06/2013) * TROPONIN I(Performed 02/06/2013) * BASIC METABOLIC PANEL (CALCIUM TOTAL)(Performed 02/06/2013) * MAGNESIUM BLOOD(Performed 02/06/2013) * PHOSPHORUS BLOOD(Performed 02/06/2013) * XR ABDOMEN KUB PORTABLE(Performed 02/05/2013) * URINALYSIS REFLEX TO MICROSCOPIC NO CULTURE(Performed 02/05/2013) * URINALYSIS REFLEX TO MICROSCOPIC NO CULTURE(Performed 02/05/2013) * HCG URINE QUALITATIVE(Performed 02/05/2013) * CT ANGIO CHEST PULM EMBOLISM(Performed 02/04/2013) * CT ABDOMEN PELVIS W CONTRAST(Performed 02/04/2013) * LIPASE BLOOD(Performed 02/04/2013) * COMPREHENSIVE METABOLIC PANEL(Performed 02/04/2013) * PT-INR [facility](Performed 02/04/2013) * XR CHEST 2VW(Performed 02/04/2013) * CBC W AUTO DIFFERENTIAL(Performed 02/04/2013) * CBC W AUTO DIFFERENTIAL(Performed 02/02/2013) * PHOSPHORUS BLOOD(Performed 02/02/2013) * MAGNESIUM BLOOD(Performed 02/02/2013) * HEPATIC FUNCTION PANEL(Performed 02/02/2013) * BASIC METABOLIC PANEL (CALCIUM TOTAL)(Performed 02/02/2013) * GLUCOSE ACCUCHECK(Performed 02/01/2013) * CBC W AUTO DIFFERENTIAL(Performed 02/01/2013) * PHOSPHORUS BLOOD(Performed 02/01/2013) * MAGNESIUM BLOOD(Performed 02/01/2013) * HEPATIC FUNCTION PANEL(Performed 02/01/2013) * BASIC METABOLIC PANEL (CALCIUM TOTAL)(Performed 02/01/2013) * GLUCOSE ACCUCHECK(Performed 02/01/2013) * GLUCOSE ACCUCHECK(Performed 01/31/2013) * GLUCOSE ACCUCHECK(Performed 01/31/2013) * GLUCOSE ACCUCHECK(Performed 01/31/2013) * HEPATIC FUNCTION PANEL(Performed 01/31/2013) * BASIC METABOLIC PANEL (CALCIUM TOTAL)(Performed 01/31/2013) * PHOSPHORUS BLOOD(Performed 01/31/2013) * MAGNESIUM BLOOD(Performed 01/31/2013) * CBC W AUTO DIFFERENTIAL(Performed 01/31/2013) * GLUCOSE ACCUCHECK(Performed 01/31/2013) * GLUCOSE ACCUCHECK(Performed 01/30/2013) * GLUCOSE ACCUCHECK(Performed 01/30/2013) * GLUCOSE ACCUCHECK(Performed 01/30/2013) * XR ABDOMEN 2VW(Performed 01/30/2013) * CBC W AUTO DIFFERENTIAL(Performed 01/30/2013) * PHOSPHORUS BLOOD(Performed 01/30/2013) * MAGNESIUM BLOOD(Performed 01/30/2013) * HEPATIC FUNCTION PANEL(Performed 01/30/2013) * BASIC METABOLIC PANEL (CALCIUM TOTAL)(Performed 01/30/2013) * GLUCOSE ACCUCHECK(Performed 01/30/2013) * CBC W/O DIFFERENTIAL(Performed 01/30/2013) * GLUCOSE ACCUCHECK(Performed 01/29/2013) * MAGNESIUM BLOOD(Performed 01/29/2013) * CBC W/O DIFFERENTIAL(Performed 01/29/2013) * OSMOLALITY URINE(Performed 01/29/2013) * SODIUM URINE RANDOM(Performed 01/29/2013) * GLUCOSE ACCUCHECK(Performed 01/29/2013) * CBC W AUTO DIFFERENTIAL(Performed 01/29/2013) * GLUCOSE ACCUCHECK(Performed 01/29/2013) * CBC W AUTO DIFFERENTIAL(Performed 01/29/2013) * PHOSPHORUS BLOOD(Performed 01/29/2013) * MAGNESIUM BLOOD(Performed 01/29/2013) * LIPASE BLOOD(Performed 01/29/2013) * AMYLASE BLOOD(Performed 01/29/2013) * HEPATIC FUNCTION PANEL(Performed 01/29/2013) * BASIC METABOLIC PANEL (CALCIUM TOTAL)(Performed 01/29/2013) * GLUCOSE ACCUCHECK(Performed 01/29/2013) * GLUCOSE ACCUCHECK(Performed 01/28/2013) * EKG 12-LEAD(Performed 01/28/2013) * GLUCOSE ACCUCHECK(Performed 01/28/2013) * GLUCOSE ACCUCHECK(Performed 01/28/2013) * CBC W AUTO DIFFERENTIAL(Performed 01/28/2013) * PHOSPHORUS BLOOD(Performed 01/28/2013) * MAGNESIUM BLOOD(Performed 01/28/2013) * LIPASE BLOOD(Performed 01/28/2013) * AMYLASE BLOOD(Performed 01/28/2013) * HEPATIC FUNCTION PANEL(Performed 01/28/2013) * BASIC METABOLIC PANEL (CALCIUM TOTAL)(Performed 01/28/2013) * GLUCOSE ACCUCHECK(Performed 01/28/2013) * GLUCOSE ACCUCHECK(Performed 01/27/2013) * GLUCOSE ACCUCHECK(Performed 01/27/2013) * GLUCOSE ACCUCHECK(Performed 01/27/2013) * CBC W AUTO DIFFERENTIAL(Performed 01/27/2013) * BASIC METABOLIC PANEL (CALCIUM TOTAL)(Performed 01/27/2013) * HEPATIC FUNCTION PANEL(Performed 01/27/2013) * PHOSPHORUS BLOOD(Performed 01/27/2013) * MAGNESIUM BLOOD(Performed 01/27/2013) * LIPASE BLOOD(Performed 01/27/2013) * AMYLASE BLOOD(Performed 01/27/2013) * GLUCOSE ACCUCHECK(Performed 01/27/2013) * GLUCOSE ACCUCHECK(Performed 01/26/2013) * GLUCOSE ACCUCHECK(Performed 01/26/2013) * CBC W AUTO DIFFERENTIAL(Performed 01/26/2013) * PHOSPHORUS BLOOD(Performed 01/26/2013) * MAGNESIUM BLOOD(Performed 01/26/2013) * LIPASE BLOOD(Performed 01/26/2013) * AMYLASE BLOOD(Performed 01/26/2013) * HEPATIC FUNCTION PANEL(Performed 01/26/2013) * BASIC METABOLIC PANEL (CALCIUM TOTAL)(Performed 01/26/2013) * GLUCOSE ACCUCHECK(Performed 01/26/2013) * GLUCOSE ACCUCHECK(Performed 01/26/2013) * GLUCOSE ACCUCHECK(Performed 01/25/2013) * GLUCOSE ACCUCHECK(Performed 01/25/2013) * JEAN-PAUL TITER AND PATTERN RFLXD(Performed 01/25/2013) * COMPLEMENT C4(Performed 01/25/2013) * COMPLEMENT C3(Performed 01/25/2013) * ROGERS (SM) ANTIBODY KARTHIKEYAN(Performed 01/25/2013) * DNA ANTIBODY DOUBLE STRANDED(Performed 01/25/2013) * JEAN-PAUL BLOOD SCREEN(Performed 01/25/2013) * ERYTHROCYTE SEDIMENTATION RATE(Performed 01/25/2013) * C-REACTIVE PROTEIN(Performed 01/25/2013) * GLUCOSE ACCUCHECK(Performed 01/25/2013) * CBC W AUTO DIFFERENTIAL(Performed 01/25/2013) * PHOSPHORUS BLOOD(Performed 01/25/2013) * MAGNESIUM BLOOD(Performed 01/25/2013) * LIPASE BLOOD(Performed 01/25/2013) * AMYLASE BLOOD(Performed 01/25/2013) * HEPATIC FUNCTION PANEL(Performed 01/25/2013) * BASIC METABOLIC PANEL (CALCIUM TOTAL)(Performed 01/25/2013) * GLUCOSE ACCUCHECK(Performed 01/24/2013) * GLUCOSE ACCUCHECK(Performed 01/24/2013) * HEMATOCRIT(Performed 01/24/2013) * HEMOGLOBIN(Performed 01/24/2013) * GLUCOSE ACCUCHECK(Performed 01/24/2013) * GLUCOSE ACCUCHECK(Performed 01/24/2013) * GLUCOSE ACCUCHECK(Performed 01/24/2013) * HEMATOCRIT(Performed 01/24/2013) * HEMOGLOBIN(Performed 01/24/2013) * HEMATOCRIT(Performed 01/24/2013) * HEMOGLOBIN(Performed 01/24/2013) * LIPASE BLOOD(Performed 01/24/2013) * CBC W AUTO DIFFERENTIAL(Performed 01/24/2013) * LIPASE BLOOD(Performed 01/24/2013) * HEPATIC FUNCTION PANEL(Performed 01/24/2013) * AMYLASE BLOOD(Performed 01/24/2013) * PHOSPHORUS BLOOD(Performed 01/24/2013) * MAGNESIUM BLOOD(Performed 01/24/2013) * BASIC METABOLIC PANEL (CALCIUM TOTAL)(Performed 01/24/2013) * LACTIC ACID BLOOD(Performed 01/24/2013) * GLUCOSE ACCUCHECK(Performed 01/23/2013) * HEMATOCRIT(Performed 01/23/2013) * HEMOGLOBIN(Performed 01/23/2013) * GLUCOSE ACCUCHECK(Performed 01/23/2013) * CROSSMATCH RBC LEUKOREDUCED(Performed 01/23/2013) * TYPE + SCREEN PANEL(Performed 01/23/2013) * CT PARACENTESIS(Performed 01/23/2013) * AMYLASE BODY FLUID(Performed 01/23/2013) * TRIGLYCERIDES FLUID(Performed 01/23/2013) * CELL COUNT CSF(Performed 01/23/2013) * CULTURE AEROBIC(Performed 01/23/2013) * CULTURE ANAEROBE(Performed 01/23/2013) * GRAM STAIN SMEAR(Performed 01/23/2013) * LIPASE BLOOD(Performed 01/23/2013) * GLUCOSE ACCUCHECK(Performed 01/23/2013) * HEMOGLOBIN(Performed 01/23/2013) * HEMATOCRIT(Performed 01/23/2013) * GLUCOSE ACCUCHECK(Performed 01/23/2013) * LIPASE BLOOD(Performed 01/23/2013) * HEPATIC FUNCTION PANEL(Performed 01/23/2013) * AMYLASE BLOOD(Performed 01/23/2013) * PHOSPHORUS BLOOD(Performed 01/23/2013) * MAGNESIUM BLOOD(Performed 01/23/2013) * BASIC METABOLIC PANEL (CALCIUM TOTAL)(Performed 01/23/2013) * LACTIC ACID BLOOD(Performed 01/23/2013) * CBC W AUTO DIFFERENTIAL(Performed 01/23/2013) * MAGNESIUM BLOOD(Performed 01/22/2013) * HEMATOCRIT(Performed 01/22/2013) * HEMOGLOBIN(Performed 01/22/2013) * GLUCOSE ACCUCHECK(Performed 01/22/2013) * MAGNESIUM BLOOD(Performed 01/22/2013) * CBC W/O DIFFERENTIAL(Performed 01/22/2013) * GLUCOSE ACCUCHECK(Performed 01/22/2013) * CBC W AUTO DIFFERENTIAL(Performed 01/22/2013) * HEPATIC FUNCTION PANEL(Performed 01/22/2013) * LIPASE BLOOD(Performed 01/22/2013) * PHOSPHORUS BLOOD(Performed 01/22/2013) * MAGNESIUM BLOOD(Performed 01/22/2013) * BASIC METABOLIC PANEL (CALCIUM TOTAL)(Performed 01/22/2013) * IR PICC LINE INSERT(Performed 01/21/2013) * IR US GUIDE VASCULAR ACCESS(Performed 01/21/2013) * IR PICC LINE INSERT(Performed 01/21/2013) * EKG 12-LEAD(Performed 01/21/2013) * CBC W AUTO DIFFERENTIAL(Performed 01/21/2013) * AMYLASE BLOOD(Performed 01/21/2013) * PHOSPHORUS BLOOD(Performed 01/21/2013) * MAGNESIUM BLOOD(Performed 01/21/2013) * BASIC METABOLIC PANEL (CALCIUM TOTAL)(Performed 01/21/2013) * LIPASE BLOOD(Performed 01/21/2013) * HEPATIC FUNCTION PANEL(Performed 01/21/2013) * LACTIC ACID BLOOD(Performed 01/21/2013) * CBC W AUTO DIFFERENTIAL(Performed 01/20/2013) * LACTIC ACID BLOOD(Performed 01/20/2013) * AMYLASE BLOOD(Performed 01/20/2013) * PHOSPHORUS BLOOD(Performed 01/20/2013) * MAGNESIUM BLOOD(Performed 01/20/2013) * HEPATIC FUNCTION PANEL(Performed 01/20/2013) * BASIC METABOLIC PANEL (CALCIUM TOTAL)(Performed 01/20/2013) * LIPASE BLOOD(Performed 01/20/2013) * CT ABDOMEN PELVIS WO CONTRAST(Performed 01/19/2013) * CT ANGIO CHEST PULM EMBOLISM(Performed 01/19/2013) * LACTIC ACID BLOOD(Performed 01/19/2013) * CBC W AUTO DIFFERENTIAL(Performed 01/19/2013) * LIPASE BLOOD(Performed 01/19/2013) * HEPATIC FUNCTION PANEL(Performed 01/19/2013) * LIPASE BLOOD(Performed 01/19/2013) * PHOSPHORUS BLOOD(Performed 01/19/2013) * MAGNESIUM BLOOD(Performed 01/19/2013) * BASIC METABOLIC PANEL (CALCIUM TOTAL)(Performed 01/19/2013) * AMYLASE BLOOD(Performed 01/19/2013) * LACTIC ACID BLOOD(Performed 01/18/2013) * CBC W AUTO DIFFERENTIAL(Performed 01/18/2013) * PHOSPHORUS BLOOD(Performed 01/18/2013) * AMYLASE BLOOD(Performed 01/18/2013) * MAGNESIUM BLOOD(Performed 01/18/2013) * BASIC METABOLIC PANEL (CALCIUM TOTAL)(Performed 01/18/2013) * LIPASE BLOOD(Performed 01/18/2013) * HEPATIC FUNCTION PANEL(Performed 01/18/2013) * CBC W AUTO DIFFERENTIAL(Performed 01/17/2013) * LIPASE BLOOD(Performed 01/17/2013) * MAGNESIUM BLOOD(Performed 01/17/2013) * BASIC METABOLIC PANEL (CALCIUM TOTAL)(Performed 01/17/2013) * AMYLASE BLOOD(Performed 01/17/2013) * PHOSPHORUS BLOOD(Performed 01/17/2013) * HEPATIC FUNCTION PANEL(Performed 01/17/2013) * LIPASE BLOOD(Performed 01/17/2013) * LACTIC ACID BLOOD(Performed 01/17/2013) * LIPASE BLOOD(Performed 01/16/2013) * LIPASE BLOOD(Performed 01/16/2013) * HEPATIC FUNCTION PANEL(Performed 01/16/2013) * AMYLASE BLOOD(Performed 01/16/2013) * PHOSPHORUS BLOOD(Performed 01/16/2013) * MAGNESIUM BLOOD(Performed 01/16/2013) * BASIC METABOLIC PANEL (CALCIUM TOTAL)(Performed 01/16/2013) * LACTIC ACID BLOOD(Performed 01/16/2013) * CBC W AUTO DIFFERENTIAL(Performed 01/16/2013) * AMYLASE BODY FLUID(Performed 01/15/2013) * BILIRUBIN TOTAL FLUID(Performed 01/15/2013) * LIPASE BLOOD(Performed 01/15/2013) * HEPATIC FUNCTION PANEL(Performed 01/15/2013) * AMYLASE BLOOD(Performed 01/15/2013) * PHOSPHORUS BLOOD(Performed 01/15/2013) * MAGNESIUM BLOOD(Performed 01/15/2013) * BASIC METABOLIC PANEL (CALCIUM TOTAL)(Performed 01/15/2013) * CBC W AUTO DIFFERENTIAL(Performed 01/15/2013) * LACTIC ACID BLOOD(Performed 01/15/2013) * CULTURE TISSUE+GRAM STAIN(Performed 01/14/2013) * IR DRAIN W CATH PLACEMENT(Performed 01/14/2013) * US PARACENTESIS(Performed 01/14/2013) * LIPASE BLOOD(Performed 01/14/2013) * HEPATIC FUNCTION PANEL(Performed 01/14/2013) * AMYLASE BLOOD(Performed 01/14/2013) * PHOSPHORUS BLOOD(Performed 01/14/2013) * MAGNESIUM BLOOD(Performed 01/14/2013) * BASIC METABOLIC PANEL (CALCIUM TOTAL)(Performed 01/14/2013) * CBC W AUTO DIFFERENTIAL(Performed 01/14/2013) * PREALBUMIN(Performed 01/14/2013) * LACTIC ACID BLOOD(Performed 01/14/2013) * PT-INR SLH(Performed 01/14/2013) * CROSSMATCH RBC LEUKOREDUCED(Performed 01/13/2013) * TYPE + SCREEN PANEL(Performed 01/13/2013) * CBC W/O DIFFERENTIAL(Performed 01/13/2013) * CULTURE BLOOD(Performed 01/13/2013) * CULTURE BLOOD(Performed 01/13/2013) * LACTIC ACID BLOOD(Performed 01/13/2013) * LIPASE BLOOD(Performed 01/13/2013) * CBC W AUTO DIFFERENTIAL(Performed 01/13/2013) * PHOSPHORUS BLOOD(Performed 01/13/2013) * MAGNESIUM BLOOD(Performed 01/13/2013) * BASIC METABOLIC PANEL (CALCIUM TOTAL)(Performed 01/13/2013) * HEPATIC FUNCTION PANEL(Performed 01/13/2013) * LACTIC ACID BLOOD(Performed 01/13/2013) * CT ABDOMEN PELVIS WO CONTRAST(Performed 01/12/2013) * EKG 12-LEAD(Performed 01/12/2013) * CBC W AUTO DIFFERENTIAL(Performed 01/12/2013) * LACTIC ACID BLOOD(Performed 01/12/2013) * CULTURE BLOOD(Performed 01/12/2013) * CULTURE BLOOD(Performed 01/12/2013) * CBC W AUTO DIFFERENTIAL(Performed 01/12/2013) * PHOSPHORUS BLOOD(Performed 01/12/2013) * MAGNESIUM BLOOD(Performed 01/12/2013) * BASIC METABOLIC PANEL (CALCIUM TOTAL)(Performed 01/12/2013) * HEPATIC FUNCTION PANEL(Performed 01/12/2013) * CBC W AUTO DIFFERENTIAL(Performed 01/11/2013) * PHOSPHORUS BLOOD(Performed 01/11/2013) * MAGNESIUM BLOOD(Performed 01/11/2013) * BASIC METABOLIC PANEL (CALCIUM TOTAL)(Performed 01/11/2013) * HEPATIC FUNCTION PANEL(Performed 01/11/2013) * CELL COUNT CSF(Performed 01/10/2013) * AMYLASE BODY FLUID(Performed 01/10/2013) * CULTURE AFB(Performed 01/10/2013) * CULTURE FUNGUS OTHER+FUNGUS SMEAR(Performed 01/10/2013) * CULTURE ANAEROBE(Performed 01/10/2013) * CULTURE AEROBIC(Performed 01/10/2013) * FUNGUS SMEAR(Performed 01/10/2013) * AFB SMEAR(Performed 01/10/2013) * GRAM STAIN SMEAR(Performed 01/10/2013) * CT PARACENTESIS(Performed 01/10/2013) * CBC W AUTO DIFFERENTIAL(Performed 01/10/2013) * HEPATIC FUNCTION PANEL(Performed 01/10/2013) * PHOSPHORUS BLOOD(Performed 01/10/2013) * MAGNESIUM BLOOD(Performed 01/10/2013) * BASIC METABOLIC PANEL (CALCIUM TOTAL)(Performed 01/10/2013) * MRI ABDOMEN W MRCP WWO CONT W3D(Performed 01/09/2013) * HEPATIC FUNCTION PANEL(Performed 01/09/2013) * PHOSPHORUS BLOOD(Performed 01/09/2013) * MAGNESIUM BLOOD(Performed 01/09/2013) * BASIC METABOLIC PANEL (CALCIUM TOTAL)(Performed 01/09/2013) * CBC W AUTO DIFFERENTIAL(Performed 01/09/2013) * OCCULT BLOOD FECES(Performed 01/08/2013) * TYPE + SCREEN PANEL(Performed 01/08/2013) * LIPID PROFILE(Performed 01/08/2013) * HEPATIC FUNCTION PANEL(Performed 01/08/2013) * CBC W AUTO DIFFERENTIAL(Performed 01/08/2013) * PTT [facility](Performed 01/08/2013) * PT-INR [facility](Performed 01/08/2013) * PHOSPHORUS BLOOD(Performed 01/08/2013) * MAGNESIUM BLOOD(Performed 01/08/2013) * BASIC METABOLIC PANEL (CALCIUM TOTAL)(Performed 01/08/2013) * PHOSPHORUS BLOOD(Performed 01/07/2013) * MAGNESIUM BLOOD(Performed 01/07/2013) * BASIC METABOLIC PANEL (CALCIUM TOTAL)(Performed 01/07/2013) * CBC W AUTO DIFFERENTIAL(Performed 01/07/2013) * PTT [facility](Performed 01/07/2013) * PT-INR [facility](Performed 01/07/2013) * CBC W AUTO DIFFERENTIAL(Performed 01/06/2013) * PTT [facility](Performed 01/06/2013) * PT-INR [facility](Performed 01/06/2013) * PHOSPHORUS BLOOD(Performed 01/06/2013) * MAGNESIUM BLOOD(Performed 01/06/2013) * BASIC METABOLIC PANEL (CALCIUM TOTAL)(Performed 01/06/2013) * CT ABDOMEN PELVIS W CONTRAST(Performed 01/06/2013) * URINALYSIS W/MICROSCOPIC NO CULTURE(Performed 01/06/2013) * HCG URINE QUALITATIVE(Performed 01/06/2013) * CULTURE URINE(Performed 01/06/2013) * CULTURE BLOOD(Performed 01/05/2013) * COMPLEMENT TOTAL(Performed 01/05/2013) * DNA ANTIBODY DOUBLE STRANDED(Performed 01/05/2013) * ERYTHROCYTE SEDIMENTATION RATE(Performed 01/05/2013) * CBC W AUTO DIFFERENTIAL(Performed 01/05/2013) * COMPLEMENT C3(Performed 01/05/2013) * COMPLEMENT C4(Performed 01/05/2013) * PHOSPHORUS BLOOD(Performed 01/05/2013) * BASIC METABOLIC PANEL (CALCIUM TOTAL)(Performed 01/05/2013) * MAGNESIUM BLOOD(Performed 01/05/2013) * HEPATIC FUNCTION PANEL(Performed 01/05/2013) * GGT(Performed 01/05/2013) * AMYLASE BLOOD(Performed 01/05/2013) * LDH BLOOD(Performed 01/05/2013) * LIPASE BLOOD(Performed 01/05/2013) * C-REACTIVE PROTEIN(Performed 01/05/2013) * PTT [facility](Performed 01/05/2013) * PT-INR [facility](Performed 01/05/2013) * CULTURE BLOOD(Performed 01/05/2013) * EKG 12-LEAD(Performed 12/30/2012) * CBC W AUTO DIFFERENTIAL(Performed 12/23/2012) * PHOSPHORUS BLOOD(Performed 12/23/2012) * MAGNESIUM BLOOD(Performed 12/23/2012) * LIPASE BLOOD(Performed 12/23/2012) * COMPREHENSIVE METABOLIC PANEL(Performed 12/23/2012) * AMYLASE BLOOD(Performed 12/23/2012) * GLUCOSE ACCUCHECK(Performed 12/22/2012) * CBC W AUTO DIFFERENTIAL(Performed 12/22/2012) * AMYLASE BLOOD(Performed 12/22/2012) * PHOSPHORUS BLOOD(Performed 12/22/2012) * MAGNESIUM BLOOD(Performed 12/22/2012) * LIPASE BLOOD(Performed 12/22/2012) * COMPREHENSIVE METABOLIC PANEL(Performed 12/22/2012) * MRI ANGIO NECK W CONTRAST(Performed 12/21/2012) * MRI ANGIO BRAIN ARTERIAL WO CONT(Performed 12/21/2012) * MRI BRAIN WWO CONTRAST(Performed 12/21/2012) * PROTEIN ELECTROPHORESIS WO INTERP BLOOD(Performed 12/21/2012) * FL LUMBAR PUNCTURE(Performed 12/21/2012) * OLIGOCLONAL BANDS CSF+BLOOD PANEL(Performed 12/21/2012) * HERPES SIMPLEX 1+2 ANTIBODY IGM CSF(Performed 12/21/2012) * HERPES SIMPLEX 1+2 ANTIBODY IGG CSF(Performed 12/21/2012) * VARICELLA ZOSTER ANTIBODY IGM CSF(Performed 12/21/2012) * VARICELLA ZOSTER ANTIBODY IGG CSF(Performed 12/21/2012) * CELL COUNT W DIFF CSF(Performed 12/21/2012) * VIRAL CULTURE NON-RESPIRATORY(Performed 12/21/2012) * CULTURE CSF+GRAM STAIN(Performed 12/21/2012) * PROTEIN CSF(Performed 12/21/2012) * GLUCOSE CSF(Performed 12/21/2012) * CBC W AUTO DIFFERENTIAL(Performed 12/21/2012) * AMYLASE BLOOD(Performed 12/21/2012) * PHOSPHORUS BLOOD(Performed 12/21/2012) * MAGNESIUM BLOOD(Performed 12/21/2012) * LIPASE BLOOD(Performed 12/21/2012) * COMPREHENSIVE METABOLIC PANEL(Performed 12/21/2012) * GLUCOSE ACCUCHECK(Performed 12/20/2012) * THIOPURINE METHYLTRANSFERASE(Performed 12/20/2012) * CBC W AUTO DIFFERENTIAL(Performed 12/20/2012) * AMYLASE BLOOD(Performed 12/20/2012) * PHOSPHORUS BLOOD(Performed 12/20/2012) * MAGNESIUM BLOOD(Performed 12/20/2012) * LIPASE BLOOD(Performed 12/20/2012) * COMPREHENSIVE METABOLIC PANEL(Performed 12/20/2012) * LACTIC ACID BLOOD(Performed 12/20/2012) * PROTEIN ELECTROPHORESIS WO INTERP BLOOD(Performed 12/19/2012) * CULTURE FUNGUS OTHER+FUNGUS SMEAR(Performed 12/19/2012) * CULTURE CSF+GRAM STAIN(Performed 12/19/2012) * FUNGUS SMEAR(Performed 12/19/2012) * PERIPHERAL BLOOD SMEAR PATH REVIEW(Performed 12/19/2012) * CELL COUNT W DIFF CSF(Performed 12/19/2012) * PROTEIN CSF(Performed 12/19/2012) * GLUCOSE CSF(Performed 12/19/2012) * POTASSIUM URINE RANDOM(Performed 12/19/2012) * CREATININE URINE RANDOM(Performed 12/19/2012) * AIMEE DIRECT(Performed 12/19/2012) * RIBOSOMAL P PROTEIN ANTIBODY(Performed 12/19/2012) * HAPTOGLOBIN(Performed 12/19/2012) * LDH BLOOD(Performed 12/19/2012) * CT HEAD WO CONTRAST(Performed 12/19/2012) * CBC W AUTO DIFFERENTIAL(Performed 12/19/2012) * AMYLASE BLOOD(Performed 12/19/2012) * PHOSPHORUS BLOOD(Performed 12/19/2012) * MAGNESIUM BLOOD(Performed 12/19/2012) * LIPASE BLOOD(Performed 12/19/2012) * COMPREHENSIVE METABOLIC PANEL(Performed 12/19/2012) * LACTIC ACID BLOOD(Performed 12/19/2012) * CK BLOOD(Performed 12/19/2012) * GLUCOSE ACCUCHECK(Performed 12/19/2012) * CBC W AUTO DIFFERENTIAL(Performed 12/18/2012) * AMYLASE BLOOD(Performed 12/18/2012) * PHOSPHORUS BLOOD(Performed 12/18/2012) * MAGNESIUM BLOOD(Performed 12/18/2012) * LIPASE BLOOD(Performed 12/18/2012) * COMPREHENSIVE METABOLIC PANEL(Performed 12/18/2012) * POTASSIUM BLOOD(Performed 12/17/2012) * CREATININE URINE RANDOM(Performed 12/17/2012) * CHLORIDE URINE RANDOM(Performed 12/17/2012) * SODIUM URINE RANDOM(Performed 12/17/2012) * POTASSIUM URINE RANDOM(Performed 12/17/2012) * OSMOLALITY URINE(Performed 12/17/2012) * EOSINOPHIL URINE SMEAR(Performed 12/17/2012) * ERYTHROCYTE SEDIMENTATION RATE(Performed 12/17/2012) * AMYLASE BLOOD(Performed 12/17/2012) * PHOSPHORUS BLOOD(Performed 12/17/2012) * MAGNESIUM BLOOD(Performed 12/17/2012) * LIPASE BLOOD(Performed 12/17/2012) * COMPREHENSIVE METABOLIC PANEL(Performed 12/17/2012) * PREALBUMIN(Performed 12/17/2012) * C-REACTIVE PROTEIN(Performed 12/17/2012) * CBC W AUTO DIFFERENTIAL(Performed 12/17/2012) * POTASSIUM BLOOD(Performed 12/16/2012) * OSMOLALITY BLOOD(Performed 12/16/2012) * SODIUM URINE RANDOM(Performed 12/16/2012) * CREATININE URINE RANDOM(Performed 12/16/2012) * POTASSIUM URINE RANDOM(Performed 12/16/2012) * URINALYSIS W/MICROSCOPIC NO CULTURE(Performed 12/16/2012) * CULTURE URINE(Performed 12/16/2012) * PHOSPHORUS BLOOD(Performed 12/16/2012) * MAGNESIUM BLOOD(Performed 12/16/2012) * LIPASE BLOOD(Performed 12/16/2012) * AMYLASE BLOOD(Performed 12/16/2012) * COMPREHENSIVE METABOLIC PANEL(Performed 12/16/2012) * CBC W AUTO DIFFERENTIAL(Performed 12/16/2012) * BASIC METABOLIC PANEL (CALCIUM TOTAL)(Performed 12/15/2012) * PROTEIN URINE TIMED QUANTITATIVE(Performed 12/15/2012) * CREATININE URINE TIMED(Performed 12/15/2012) * COMPLEMENT C4(Performed 12/15/2012) * COMPLEMENT C3(Performed 12/15/2012) * AMYLASE BLOOD(Performed 12/15/2012) * PHOSPHORUS BLOOD(Performed 12/15/2012) * MAGNESIUM BLOOD(Performed 12/15/2012) * LIPASE BLOOD(Performed 12/15/2012) * COMPREHENSIVE METABOLIC PANEL(Performed 12/15/2012) * CBC W AUTO DIFFERENTIAL(Performed 12/15/2012) * XR ABDOMEN KUB PORTABLE(Performed 12/15/2012) * XR ABDOMEN KUB PORTABLE(Performed 12/14/2012) * XR ABDOMEN KUB PORTABLE(Performed 12/14/2012) * IGG SUBCLASS 4(Performed 12/14/2012) * CBC W AUTO DIFFERENTIAL(Performed 12/14/2012) * AMYLASE BLOOD(Performed 12/14/2012) * PHOSPHORUS BLOOD(Performed 12/14/2012) * MAGNESIUM BLOOD(Performed 12/14/2012) * LIPASE BLOOD(Performed 12/14/2012) * COMPREHENSIVE METABOLIC PANEL(Performed 12/14/2012) * C DIFFICILE GDH AG + TOXIN A+B(Performed 12/14/2012) * CT CHEST WO CONT AND HIRES(Performed 12/13/2012) * COMPLETE PFT W/WO BRONCHODILATOR(Performed 12/13/2012) * PROTEIN URINE RANDOM QUANTITATIVE(Performed 12/13/2012) * CREATININE URINE RANDOM(Performed 12/13/2012) * CBC W AUTO DIFFERENTIAL(Performed 12/13/2012) * AMYLASE BLOOD(Performed 12/13/2012) * PHOSPHORUS BLOOD(Performed 12/13/2012) * MAGNESIUM BLOOD(Performed 12/13/2012) * LIPASE BLOOD(Performed 12/13/2012) * COMPREHENSIVE METABOLIC PANEL(Performed 12/13/2012) * ECHO COMPLETE(Performed 12/13/2012) * HISTONE ANTIBODY(Performed 12/12/2012) * JEAN-PAUL TITER AND PATTERN RFLXD(Performed 12/12/2012) * ALDOLASE(Performed 12/12/2012) * COMPLEMENT TOTAL(Performed 12/12/2012) * BETA-2 GLYCOPROTEIN 1 ANTIBODY IGG(Performed 12/12/2012) * CARDIOLIPIN ANTIBODY IGM(Performed 12/12/2012) * CARDIOLIPIN ANTIBODY IGG(Performed 12/12/2012) * BETA-2 GLYCOPROTEIN 1 ANTIBODY IGM(Performed 12/12/2012) * CHROMATIN ANTIBODY(Performed 12/12/2012) * CYCLIC CITRULLINATED PEPTIDE(CCP) AB IGG(Performed 12/12/2012) * CBC W AUTO DIFFERENTIAL(Performed 12/12/2012) * ERYTHROCYTE SEDIMENTATION RATE(Performed 12/12/2012) * SS-A (SJOGREN'S) ANTIBODY(Performed 12/12/2012) * SS-B (SJOGREN'S) ANTIBODY(Performed 12/12/2012) * SCLERODERMA 70 (SCL) ANTIBODY(Performed 12/12/2012) * MEDICAL ASSEMBLY ANTIBODY(Performed 12/12/2012) * ROGERS (SM) ANTIBODY KARTHIKEYAN(Performed 12/12/2012) * DNA ANTIBODY DOUBLE STRANDED(Performed 12/12/2012) * JEAN-PAUL BLOOD SCREEN(Performed 12/12/2012) * LUPUS ANTICOAGULANT PANEL(Performed 12/12/2012) * CK BLOOD(Performed 12/12/2012) * PHOSPHORUS BLOOD(Performed 12/12/2012) * MAGNESIUM BLOOD(Performed 12/12/2012) * LIPASE BLOOD(Performed 12/12/2012) * COMPREHENSIVE METABOLIC PANEL(Performed 12/12/2012) * AMYLASE BLOOD(Performed 12/12/2012) * C-REACTIVE PROTEIN(Performed 12/12/2012) * RHEUMATOID FACTOR BLOOD QUANTITATIVE(Performed 12/12/2012) * CREATININE URINE RANDOM(Performed 12/11/2012) * PROTEIN URINE RANDOM QUANTITATIVE(Performed 12/11/2012) * URINALYSIS NO MICROSCOPIC NO CULTURE(Performed 12/11/2012) * C DIFFICILE GDH AG + TOXIN A+B(Performed 12/11/2012) * MRI ABDOMEN W MRCP WWO CONT W3D(Performed 12/11/2012) * CBC W AUTO DIFFERENTIAL(Performed 12/11/2012) * LIPASE BLOOD(Performed 12/11/2012) * PHOSPHORUS BLOOD(Performed 12/11/2012) * MAGNESIUM BLOOD(Performed 12/11/2012) * COMPREHENSIVE METABOLIC PANEL(Performed 12/11/2012) * AMYLASE BLOOD(Performed 12/11/2012) * LIPASE BLOOD(Performed 12/10/2012) * CBC W AUTO DIFFERENTIAL(Performed 12/10/2012) * COMPREHENSIVE METABOLIC PANEL(Performed 12/10/2012) * AMYLASE BLOOD(Performed 12/10/2012) * PHOSPHORUS BLOOD(Performed 12/10/2012) * MAGNESIUM BLOOD(Performed 12/10/2012) * LACTIC ACID BLOOD(Performed 12/09/2012) * US ABDOMEN LIMITED(Performed 12/09/2012) * D-DIMER(Performed 12/09/2012) * FIBRINOGEN ACTIVITY(Performed 12/09/2012) * LACTIC ACID BLOOD(Performed 12/09/2012) * LIPASE BLOOD(Performed 12/09/2012) * CULTURE BLOOD(Performed 12/09/2012) * BILIRUBIN DIRECT(Performed 12/09/2012) * PT-INR SLH(Performed 12/09/2012) * CULTURE BLOOD(Performed 12/09/2012) * LIPASE BLOOD(Performed 12/09/2012) * AMYLASE BLOOD(Performed 12/09/2012) * PHOSPHORUS BLOOD(Performed 12/09/2012) * MAGNESIUM BLOOD(Performed 12/09/2012) * CBC W AUTO DIFFERENTIAL(Performed 12/09/2012) * COMPREHENSIVE METABOLIC PANEL(Performed 12/09/2012) * LIPASE BLOOD(Performed 12/08/2012) * AMYLASE BLOOD(Performed 12/08/2012) * HEPATIC FUNCTION PANEL(Performed 12/08/2012) * BASIC METABOLIC PANEL (CALCIUM TOTAL)(Performed 12/08/2012) * CBC W AUTO DIFFERENTIAL(Performed 12/08/2012) * LIPASE BLOOD(Performed 12/08/2012) * MAGNESIUM BLOOD(Performed 12/08/2012) * HEPATIC FUNCTION PANEL(Performed 12/08/2012) * BASIC METABOLIC PANEL (CALCIUM TOTAL)(Performed 12/08/2012) * AMYLASE BLOOD(Performed 12/08/2012) * PHOSPHORUS BLOOD(Performed 12/08/2012) * CBC W/O DIFFERENTIAL(Performed 12/07/2012) * PHOSPHORUS BLOOD(Performed 12/07/2012) * MAGNESIUM BLOOD(Performed 12/07/2012) * BASIC METABOLIC PANEL (CALCIUM TOTAL)(Performed 12/07/2012) * HEPATIC FUNCTION PANEL(Performed 12/07/2012) * PT-INR [facility](Performed 12/07/2012) * URINALYSIS W/MICROSCOPIC NO CULTURE(Performed 12/07/2012) * CULTURE URINE(Performed 12/07/2012) * ANTIBODY SCREEN(Performed 12/07/2012) * BLOOD TYPE ABO+ RH PANEL(Performed 12/07/2012) * PTT [facility](Performed 12/07/2012) * PT-INR [facility](Performed 12/07/2012) * CT ABDOMEN PELVIS W CONTRAST(Performed 12/07/2012) * HCG URINE QUALITATIVE(Performed 12/07/2012) * GGT(Performed 12/07/2012) * AMYLASE BLOOD(Performed 12/07/2012) * HEPATIC FUNCTION PANEL(Performed 12/07/2012) * CBC W AUTO DIFFERENTIAL(Performed 12/07/2012) * BASIC METABOLIC PANEL (CALCIUM TOTAL)(Performed 12/07/2012) * CULTURE BLOOD(Performed 12/07/2012) * CULTURE BLOOD(Performed 12/07/2012) * ERYTHROCYTE SEDIMENTATION RATE(Performed 12/07/2012) * C-REACTIVE PROTEIN(Performed 12/07/2012) * HEPATITIS SCREEN ACUTE(Performed 12/07/2012) * LIPID PROFILE(Performed 12/07/2012) * LIPASE BLOOD(Performed 12/07/2012) * CHLAMYDIA TRACHOMATIS DAT(Performed 11/19/2012) * NEISSERIA GONORRHOEAE DAT(Performed 11/19/2012) * CULTURE URINE(Performed 11/19/2012) * URINALYSIS REFLEX TO MICROSCOPIC NO CULTURE(Performed 11/19/2012) * HCG URINE QUALITATIVE - POCT (IP) [facility](Performed 11/19/2012) * COMPREHENSIVE METABOLIC PANEL(Performed 11/19/2012) * CBC W AUTO DIFFERENTIAL(Performed 11/19/2012) * CHLAMYDIA + GC AMPLIFIED PROBE(Performed 10/28/2011) * US ABDOMEN LIMITED(Performed 10/28/2011) Performed for Abdominal pain, right upper quadrant * LIPASE BLOOD(Performed 10/28/2011) * AMYLASE BLOOD(Performed 10/28/2011) * COMPREHENSIVE METABOLIC PANEL(Performed 10/28/2011) * URINALYSIS REFLEX TO MICROSCOPIC NO CULTURE(Performed 10/28/2011) * CBC W AUTO DIFFERENTIAL(Performed 10/28/2011) * URINE MICROSCOPIC ONLY(Performed 10/28/2011) * HCG URINE QUALITATIVE - POCT (IP) BEAKER(Performed 10/28/2011) * ERYTHROCYTE SEDIMENTATION RATE(Performed 06/02/2011) Performed for SLE (systemic lupus erythematosus) ([facility]) * C-REACTIVE PROTEIN(Performed 06/02/2011) Performed for SLE (systemic lupus erythematosus) ([facility]) * COMPLEMENT C4(Performed 06/02/2011) Performed for SLE (systemic lupus erythematosus) ([facility]) * COMPLEMENT C3(Performed 06/02/2011) Performed for SLE (systemic lupus erythematosus) ([facility]) * COMPREHENSIVE METABOLIC PANEL(Performed 06/02/2011) Performed for SLE (systemic lupus erythematosus) ([facility]) * CBC W AUTO DIFFERENTIAL(Performed 06/02/2011) Performed for SLE (systemic lupus erythematosus) ([facility]) * DNA ANTIBODY DOUBLE STRANDED(Performed 06/02/2011) Performed for SLE (systemic lupus erythematosus) ([facility]) * RIBOSOMAL P PROTEIN ANTIBODY(Performed 06/02/2011) Performed for SLE (systemic lupus erythematosus) ([facility]) * URINALYSIS REFLEX MICROSCOPIC REFLEX CULTURE(Performed 06/02/2011) Performed for SLE (systemic lupus erythematosus) ([facility]) * CULTURE URINE(Performed 06/02/2011) * LAB RESULTS ORDER(Performed 02/08/2011) * IMAGING/RADIOLOGY/XRAY RESULTS ORDER(Performed 02/08/2011) * ERYTHROCYTE SEDIMENTATION RATE(Performed 02/03/2011) * C-REACTIVE PROTEIN(Performed 02/03/2011) * COMPLEMENT C4(Performed 02/03/2011) * COMPLEMENT C3(Performed 02/03/2011) * COMPREHENSIVE METABOLIC PANEL(Performed 02/03/2011) * CBC W AUTO DIFFERENTIAL(Performed 02/03/2011) * DNA ANTIBODY DOUBLE STRANDED(Performed 02/03/2011) * URINALYSIS REFLEX MICROSCOPIC REFLEX CULTURE(Performed 02/03/2011) * CULTURE URINE(Performed 02/03/2011) * DNA ANTIBODY DS CRITHIDIA TITER(Performed 10/17/2010) * C-REACTIVE PROTEIN(Performed 10/17/2010) * ERYTHROCYTE SEDIMENTATION RATE(Performed 10/17/2010) * DNA ANTIBODY DOUBLE STRANDED(Performed 10/17/2010) * COMPLEMENT C4(Performed 10/17/2010) * COMPLEMENT C3(Performed 10/17/2010) * CBC W AUTO DIFFERENTIAL(Performed 10/17/2010) * XR CHEST 2VW(Performed 10/17/2010) Performed for SLE (systemic lupus erythematosus) (HCC) * MRI BRAIN WWO CONTRAST(Performed 06/07/2010) Performed for Lupus (Hcc) * ERYTHROCYTE SEDIMENTATION RATE(Performed 04/15/2010) * C-REACTIVE PROTEIN(Performed 04/15/2010) * COMPLEMENT C4(Performed 04/15/2010) * COMPLEMENT C3(Performed 04/15/2010) * MEDICAL ASSEMBLY ANTIBODY(Performed 04/15/2010) * DNA ANTIBODY DOUBLE STRANDED(Performed 04/15/2010) * URINALYSIS REFLEX MICROSCOPIC REFLEX CULTURE(Performed 04/15/2010) * CARDIAC ECHOCARDIOGRAM COMPLETE ORDER(Performed 03/30/2010) * CARDIAC ECHOCARDIOGRAM COMPLETE ORDER(Performed 03/24/2010) * LAB RESULTS ORDER(Performed 03/24/2010) * DIFFERENTIAL MANUAL(Performed 03/11/2010) * LACTIC ACID BLOOD(Performed 03/11/2010) * LDH BLOOD(Performed 03/11/2010) * ERYTHROCYTE SEDIMENTATION RATE(Performed 03/11/2010) * C-REACTIVE PROTEIN(Performed 03/11/2010) * CK BLOOD(Performed 03/11/2010) * COMPLEMENT C4(Performed 03/11/2010) * COMPLEMENT C3(Performed 03/11/2010) * COMPREHENSIVE METABOLIC PANEL(Performed 03/11/2010) * CBC W AUTO DIFFERENTIAL(Performed 03/11/2010) * ALDOLASE(Performed 03/11/2010) * DNA ANTIBODY DOUBLE STRANDED(Performed 03/11/2010) * LIPASE BLOOD(Performed 03/11/2010) Performed for Abdominal pain, generalized * AMYLASE BLOOD(Performed 03/11/2010) Performed for Abdominal pain, generalized * URINALYSIS REFLEX MICROSCOPIC REFLEX CULTURE(Performed 03/11/2010) * LAB RESULTS ORDER(Performed 03/11/2010) * IMAGING/RADIOLOGY/XRAY RESULTS ORDER(Performed 03/11/2010) * ECHO CONSULT - PEDIATRIC(Performed 03/11/2010) Performed for Myocardial degeneration (HCC) * CT CHEST WO CONTRAST(Performed 03/11/2010) Performed for Systemic lupus erythematosus (HCC) * US ABDOMEN LIMITED(Performed 03/02/2010) Performed for Abdominal pain, acute * URINALYSIS REFLEX TO MICROSCOPIC NO CULTURE(Performed 03/02/2010) * HCG URINE QUALITATIVE(Performed 03/02/2010) * CULTURE URINE(Performed 03/02/2010) * DIFFERENTIAL MANUAL(Performed 01/21/2010) * URINALYSIS REFLEX MICROSCOPIC REFLEX CULTURE(Performed 01/21/2010) * VITAMIN D 1,25 DIHYDROXY(Performed 01/21/2010) * RIBOSOMAL P PROTEIN ANTIBODY(Performed 01/21/2010) * LUPUS ANTICOAGULANT PANEL W RFLX(Performed 01/21/2010) * LDH BLOOD(Performed 01/21/2010) * ERYTHROCYTE SEDIMENTATION RATE(Performed 01/21/2010) * C-REACTIVE PROTEIN(Performed 01/21/2010) * CK BLOOD(Performed 01/21/2010) * COMPLEMENT C4(Performed 01/21/2010) * COMPLEMENT C3(Performed 01/21/2010) * COMPREHENSIVE METABOLIC PANEL(Performed 01/21/2010) * CBC W AUTO DIFFERENTIAL(Performed 01/21/2010) * CARDIOLIPIN ANTIBODY IGG/IGM PANEL(Performed 01/21/2010) * BETA-2 GLYCOPROTEIN 1 ANTIBODY IGG/IGM PANEL(Performed 01/21/2010) * ALDOLASE(Performed 01/21/2010) * SS-B (SJOGREN'S) ANTIBODY(Performed 01/21/2010) * SS-A (SJOGREN'S) ANTIBODY(Performed 01/21/2010) * ROGERS (SM) ANTIBODY KARTHIKEYAN(Performed 01/21/2010) * SCLERODERMA 70 (SCL) ANTIBODY(Performed 01/21/2010) * MEDICAL ASSEMBLY ANTIBODY(Performed 01/21/2010) * DNA ANTIBODY DOUBLE STRANDED(Performed 01/21/2010) * CARDIOLIPIN ANTIBODY IGA(Performed 07/09/2009) Performed for Syst Lupus Erythematosus * LUPUS ANTICOAGULANT PANEL W RFLX(Performed 07/09/2009) Performed for Syst Lupus Erythematosus * BETA-2 GLYCOPROTEIN 1 ANTIBODY IGA(Performed 07/09/2009) Performed for Syst Lupus Erythematosus * COMPLEMENT TOTAL(Performed 07/09/2009) Performed for Syst Lupus Erythematosus * DNA ANTIBODY DOUBLE STRANDED(Performed 07/09/2009) Performed for Syst Lupus Erythematosus * ALDOLASE(Performed 07/09/2009) Performed for Syst Lupus Erythematosus * JEAN-PAUL BLOOD TITER(Performed 07/09/2009) Performed for Syst Lupus Erythematosus * JEAN-PAUL BLOOD SCREEN W/REFLEX TITER(Performed 07/09/2009) Performed for Syst Lupus Erythematosus * ERYTHROCYTE SEDIMENTATION RATE(Performed 07/09/2009) Performed for Syst Lupus Erythematosus * C-REACTIVE PROTEIN(Performed 07/09/2009) Performed for Syst Lupus Erythematosus * COMPLEMENT C4(Performed 07/09/2009) Performed for Syst Lupus Erythematosus * COMPREHENSIVE METABOLIC PANEL(Performed 07/09/2009) Performed for Syst Lupus Erythematosus * LDH BLOOD(Performed 07/09/2009) Performed for Syst Lupus Erythematosus * COMPLEMENT C3(Performed 07/09/2009) Performed for Syst Lupus Erythematosus * CK BLOOD(Performed 07/09/2009) Performed for Syst Lupus Erythematosus * CBC W MANUAL DIFFERENTIAL(Performed 07/09/2009) Performed for Syst Lupus Erythematosus * CULTURE URINE(Performed 07/09/2009) Performed for Syst Lupus Erythematosus * PFT-LAB(Performed 07/09/2009) * DIFFERENTIAL MANUAL(Performed 06/23/2009) * CBC W AUTO DIFFERENTIAL(Performed 06/23/2009) * CULTURE FUNGUS SKIN HAIR NAILS(Performed 06/22/2009) * MRI LOWER EXT RT WWO CONT NON JT(Performed 06/22/2009) * SS-B (SJOGREN'S) ANTIBODY(Performed 06/22/2009) * SS-A (SJOGREN'S) ANTIBODY(Performed 06/22/2009) * MEDICAL ASSEMBLY ANTIBODY(Performed 06/22/2009) * SCLERODERMA 70 (SCL) ANTIBODY(Performed 06/22/2009) * DNA ANTIBODY DOUBLE STRANDED(Performed 06/22/2009) * CREATININE CLEARANCE URINE TIMED + BLOOD(Performed 06/22/2009) * CREATININE BLOOD(Performed 06/22/2009) * PROTEIN URINE TIMED QUANTITATIVE(Performed 06/22/2009) * CREATININE URINE TIMED(Performed 06/22/2009) * ECHO CONSULT - PEDIATRIC(Performed 06/22/2009) * VITAMIN D 1,25 DIHYDROXY(Performed 06/22/2009) * DIFFERENTIAL MANUAL(Performed 06/22/2009) * CBC W AUTO DIFFERENTIAL(Performed 06/22/2009) * DIFFERENTIAL MANUAL(Performed 06/21/2009) * CBC W AUTO DIFFERENTIAL(Performed 06/21/2009) * COMPREHENSIVE METABOLIC PANEL(Performed 06/21/2009) * JEAN-PAUL BLOOD TITER(Performed 06/21/2009) * JEAN-PAUL BLOOD SCREEN W/REFLEX TITER(Performed 06/21/2009) * MPO/MD 3 AUTOANTIBODIES PANEL(Performed 06/21/2009) * ERYTHROCYTE SEDIMENTATION RATE(Performed 06/21/2009) * TROPONIN I(Performed 06/21/2009) * COMPLEMENT TOTAL(Performed 06/21/2009) * C-REACTIVE PROTEIN(Performed 06/21/2009) * COMPLEMENT C4(Performed 06/21/2009) * COMPLEMENT C3(Performed 06/21/2009) * URINALYSIS REFLEX TO MICROSCOPIC NO CULTURE(Performed 06/21/2009) * XR TIBIA FIBULA RIGHT 2VW(Performed 06/21/2009) * SECTION (EMERGENCY) Performed for Failure to progress Results * CT CHEST WO CONT AND HIRES (11/02/2022 10:04 AM CDT) Only the most recent of3 resultswithin the time period is included. Anatomical Region Laterality Modality Chest Computed Tomogra phy 11/02/2022 10:4 0 AM CDT Impressions 11/02/2022 6:57 PM CDT Impression: 1.No CT evidence of interstitial lung disease. 2.Pericardial calcifications along the inferior heart border. > Dictated by Tyra Mcguire MD (residential remodeling subcontractor). I, Donte Acuña MD have personally reviewed and interpreted this examination/study. > Interpreting Provider: Donte Acuña MD on 11/02/2022 6:57 PM Narrative 11/02/2022 6:57 PM CDT EXAMINATION: CT CHEST WO CONT AND HIRES DATE/TIME OF EXAM: 11/02/2022 10:07 AM, LOCATION [facility] HISTORY: J84.9: ILD (interstitial lung disease) (CMS/HCC) ILD- restrictive ventilatory limitation on PFTs. Inspiratory and Expiratory films. COMPARISON: No prior study is available for comparison. TECHNIQUE: CT of the chest was performed without contrast according to standard protocol. Then, utilizing a high-resolution algorithm, 1 mm noncontiguous axial images of the chest were obtained in inspiration and expiration. Findings: Evaluation of visceral and vascular structures is degraded due to lack of intravenous contrast administration. Lines and tubes: None. Lower Neck and Axillae: The thyroid gland enhances homogenously. No abnormal supraclavicular or axillary lymphadenopathy is seen. Airway, Lungs and pleura: The central airway is patent. Bilateral lungs are clear. No suspicious pulmonary nodule is identified. No bronchial wall thickening or bronchiectasis is seen. There is no evidence of reticulation or groundglass opacities. No architectural distortion or honeycombing is visible. No air trapping is seen on expiratory images. No pleural effusion or focal pleural thickening is identified. There is no evidence of pneumothorax. Heart and Pericardium: The heart size is normal. No pericardial effusion is present. There are pericardial calcifications along the inferior heart border. Mediastinum and Alexandra: No enlarged lymph nodes are present. No mediastinal mass is identified. Thoracic Vasculature: The aorta and main pulmonary artery are normal in course and caliber. Bones and Chest Wall: Bone windows demonstrate no suspicious lytic or blastic lesions. The visible osseous structures are intact. Upper Abdomen: The visible portions of the upper abdominal organs are normal. Procedure Note Donte Acuña MD - 11/02/2022 EXAMINATION: CT CHEST WO ANNE INGRID KUNZ DATE/TIME OF EXAM: 11/02/2022 10:07 AM, LOCATION [facility] HISTORY: J84.9: ILD (interstitial lung disease) (CMS/HCC) ILD-restrictive ventilatory limitation on PFTs. Inspiratory and Expiratory films. COMPARISON: No prior study is available for comparison. TECHNIQUE: CT of the chest was performed without contrast according to standard protocol. Then, utilizing a high-resolution algorithm, 1 mm noncontiguous axial images of the chest were obtained in inspiration and expiration. Findings: Evaluation of visceral and vascular structures is degraded due to lackof intravenous contrast administration. Lines and tubes: None. Lower Neck and Axillae: The thyroid gland enhances homogenously. No abnormal supraclavicular or axillary lymphadenopathy is seen. Airway, Lungs and pleura: The central airway is patent. Bilateral lungs are clear. No suspicious pulmonary nodule is identified. No bronchial wall thickening or bronchiectasis is seen. There is no evidence of reticulation orgroundglass opacities. No architectural distortion or honeycombing is visible. Noair trapping is seen on expiratory images. No pleural effusion or focalpleural thickening is identified. There is no evidence of pneumothorax. Heart and Pericardium: The heart size is normal. No pericardial effusion is present. There are pericardial calcifications along the inferior heart border. Mediastinum and Alexandra: No enlarged lymph nodes are present. No mediastinal mass is identified. Thoracic Vasculature: The aorta and main pulmonary artery are normal in course and caliber. Bones and Chest Wall: Bone windows demonstrate no suspicious lytic or blastic lesions. The visible osseous structures are intact. Upper Abdomen: The visible portions of the upper abdominal organs are normal. Impression: 1.No CT evidence of interstitial lung disease. 2.Pericardial calcifications along the inferior heart border. > Dictated by Tyra Mcguire MD (residential remodeling subcontractor). I, Donte Acuña MD have personally reviewed and interpreted this examination/study. > Interpreting Provider: Donte Acuña MD on 11/02/2022 6:57 PM Michael Mariscal MD CT ORDERABLES * TSH (10/15/2022 7:16 AM CDT) TSH 1.80 mIU/L [employer] Comment: Reference Range > or = 20 Years 0.40-4.50 Ranges First trimester 0.26-2.66 Second trimester 0.55-2.73 Third trimester 0.43-2.91 REPORT COMMENT: AN UPDATE OR CORRECTION HAS BEEN MADE TO NAME Test Performed at: [employer] [address] [address] LUNA BARRAZA MD Blood BLOOD SPECIMEN / Unknown 10/15/2022 7:16 AM CDT 10/15/2022 7:16 AM CDT Yasmany Berg MD LAB - CHEMISTRY ORDJose G POPE [facility] Organization Address City/State/ZIP Co de Phone Number [facility] [address] [place] [address] * (ABNORMAL) T4 FREE (10/15/2022 7:16 AM CDT) Only the most recent of2 resultswithin the time period is included. T4 Free 0.5(L) 0.8 - 1.8 ng/dL [facility] Comment: Test Performed at: [email or web address] [place] [address] LUNA BARRAZA MD Blood BLOOD SPECIMEN / Unknown 10/15/2022 7:16 AM CDT 10/15/2022 7:16 AM CDT Yasmany Berg MD LAB - CHEMISTRY [place] [facility] Performing Organization Address [facility]/[place] Co de Phone Number [facility] [id number] [place] [address] * C-REACTIVE PROTEIN (10/15/2022 7:13 AM CDT) Only the most recent of43 resultswithin the time period is included. [facility] C-Reactive Protein 0.5 <8.0 mg/L [facility] Comment: REPORT COMMENT: PATIENT UNABLE TO VOID; ADVISED TO RETURN FOR COLLECTION. Test Performed at: [email or web address] [address] LUNA BARRAZA MD 10/15/2022 7:13 AM CDT 10/15/2022 7:14 AM CDT Bob Varma MD LAB - CHEMISTRY TOSHIA POPE Performing Organization Address [facility]/[place] Co de Phone Number [facility] [phone] [place] [id number] * (ABNORMAL) ERYTHROCYTE SEDIMENTATION RATE (10/15/2022 7:13 AM CDT) Only the most recent of40 resultswithin the time period is included. Pathologist [facility] Erythrocyte Sedimentation Rate Westergren 56(H) < OR = 20 mm/h [facility] Comment: Test Performed at: [email or web address] [address] LUNA BARRAZA MD 10/15/2022 7:13 AM CDT 10/15/2022 7:14 AM CDT Bob Varma MD LAB - HEMATOLOGY ORD [facility] Organization Address City/State/ZIP Co de Phone Number [facility] [address] [place] [address] * (ABNORMAL) CBC WITH DIFFERENTIAL (10/15/2022 7:13 AM CDT) Only the most recent of132 resultswithin the time period is included. White Blood Cell Count 3.2(L) 3.8 - 10.8 Thousand/ uL [facility] RBC 3.81 3.80 - 5.10 Million/u L [facility] Hemoglobin 9.6(L) 11.7 - 15.5 g/dL [facility] Hematocrit 30.6(L) 35.0 - 45.0 % [facility] MCV 80.3 80.0 - 100.0 fL [facility] MCH 25.2(L) 27.0 - 33.0 pg [facility] MCHC 31.4(L) 32.0 - 36.0 g/dL [facility] RDW 16.8(H) 11.0 - 15.0 % [facility] Platelet Count 249 140 - 400 Thousand/ uL [facility] MPV 12.1 7.5 - 12.5 fL [facility] Neutrophil Absolute 9 1500 - 7800 cells/uL [facility] Absolute Bands [facility] Metamyelocytes Absolute [facility] Myelocytes Absolute [facility] Absolute Prolymphocytes [facility] Lymphocytes Absolute 842(L) 850 - 3900 cells/uL [facility] Absolute Monocytes 250 200 - 950 cells/uL [facility] Eosinophils Absolute 70 15 - 500 cells/uL [facility] Basophils Absolute 10 0 - 200 cells/uL [facility] Absolute Blasts [facility] nRBC Absolute [facility] Granulocytes % 63.4 % [facility] Band Neutrophil [facility] Metamyelocytes [facility] Myelocytes [facility] Promyelocytes [facility] Lymphocytes % 26.3 % [facility] Lymphocyte Reactive [facility] Monocytes % 7.8 % [facility] Eosinophils % 2.2 % [facility] Basophils % 0.3 % [facility] Comment: Test Performed at: [facility] [id number] [employer] [address] LUNA BARRAZA MD Blasts [facility] nRBC [facility] Comments [facility] Comment: Test Performed at: [facility] [id number] [employer] [place] [employer] [address] LUNA BARRAZA MD 10/15/2022 7:13 AM CDT 10/15/2022 7:14 AM CDT Bob Varma MD LAB - HEMATOLOGY ORD [place] Performing Organization Address [facility]/[place] Co de Phone Number [facility] [phone] [place] [address] * COMPREHENSIVE METABOLIC PANEL (10/15/2022 7:13 AM CDT) Only the most recent of100 resultswithin the time period is included. Glucose 87 65 - 99 mg/dL [facility] Comment: Fasting reference interval BUN 10 7 - 25 mg/dL [facility] Creatinine 0.79 0.50 - 0.97 mg/dL [facility] eGFR by Cystatin C 103 > OR = 60 mL/min/1. 73m2 [facility] Comment: The eGFR is based on the CKD-EPI 2020 equation. To calculate the new eGFR from a previous Creatinine or Cystatin C result, go to https://www.kidney.org/professionals/ kdoqi/gfr%5Fcalculator BUN/Creatinine Ratio NOT APPLICABLE 6 - 22 (calc) [facility] Sodium 137 135 - 146 mmol/L [facility] Potassium 4.1 3.5 - 5.3 mmol/L [facility] Chloride 105 98 - 110 mmol/L [facility] CO2 23 20 - 32 mmol/L [facility] Calcium 8.9 8.6 - 10.2 mg/dL [facility] Protein Total 7.2 6.1 - 8.1 g/dL [facility] Albumin 4.3 3.6 - 5.1 g/dL [facility] Globulin Total 2.9 1.9 - 3.7 g/dL (calc) [facility] Albumin/Globuli n Ratio 1.5 1.0 - 2.5 (calc) [facility] Bilirubin Total 0.6 0.2 - 1.2 mg/dL [facility] Alkaline Phosphatase 85 31 - 125 U/L [facility] AST 21 10 - 30 U/L [facility] ALT 16 6 - 29 U/L [facility] Comment: Test Performed at: [facility] [id number] [facility] [address] LUNA BARRAZA MD 10/15/2022 7:13 AM CDT 10/15/2022 7:14 AM CDT Bob Varma MD LAB - CHEMISTRY TOSHIA POPE Performing Organization Address [facility]/ZIP Co de Phone Number [facility] [phone] [place] [address] * CARDIAC EKG ORDER (10/13/2022 8:18 PM CDT) Only the most recent of3 resultswithin the time period is included. Narrative 10/13/2022 8:18 PM CDT Ordered by an unspecified provider. Scanned Document CARDIAC SERVICES ORD ERABLES * LIPASE BLOOD (10/12/2022 12:52 PM CDT) Only the most recent of59 resultswithin the time period is included. [facility] Lipase 25 8 - 78 U/L 10/12/2022 1:15 PM CDT [facility] Blood BLOOD SPECIMEN / Unknown Venipuncture / Unknown 10/12/2022 12:52 PM CDT 10/12/2022 12:55 PM CDT Mark Brown MD LAB - CHEMISTRY OR DERABLES Performing Organization Address [facility]/[place] Co de Phone Number [facility] [address] [facility] [place] [address] * HCG BLOOD QUALITATIVE (10/12/2022 12:52 PM CDT) [facility] HCG Qual Serum Negative Negative 10/12/2022 1:09 PM CDT [facility] Blood BLOOD SPECIMEN / Unknown Venipuncture / Unknown 10/12/2022 12:52 PM CDT 10/12/2022 12:55 PM CDT Narrative [facility] - 10/12/2022 1:09 PM CDT Specimens containing heterophilic antibodies may demonstrate false positive results. Specimens containing human anti-mouse antibodies may exhibit false positive or false negative results. If qualitative interpretation is inconsistant with clinical evaluation, consider confirmation by an alternative hCG method. Mark Brown MD LAB - CHEMISTRY OR DERABLES Performing Organization Address City/[facility]/ZIP Co de Phone Number [facility] [address] [place] [address] * TROPONIN I (10/12/2022 12:26 PM CDT) Only the most recent of7 resultswithin the time period is included. [facility] Troponin I <0.010 <0.038 ng/mL 10/12/2022 1:07 PM CDT [facility] Blood BLOOD SPECIMEN / Unknown Venipuncture / Unknown 10/12/2022 12:26 PM CDT 10/12/2022 12:43 PM CDT Mark Brown MD LAB - CHEMISTRY OR DERABLES Performing Organization Address City/[facility]/ZIP Co de Phone Number [facility] [address] [address] * EKG 12-LEAD (10/12/2022 9:40 AM CDT) Only the most recent of15 resultswithin the time period is included. Pathologist [facility] Ventricular Rate 103 BPM [facility] MUSE Atrial Rate 103 BPM [facility] P-R Interval 124 ms [facility] QRS Duration ms 82 ms [facility] Q-T Interval ms 346 ms [facility] QTC Calculation (Bezet) 453 ms [facility] MUSE Calculated P Emily 53 degrees [facility] MUSE Calculated R Emily 46 degrees [facility] MUSE Calculated T Emily 45 degrees [facility] M[facility] Interpretation EKG Sinus tachycardia Cannot rule out Anterior infarct , age undetermined Abnormal ECG No previous ECGs available Confirmed by TRANG AVILEZ MD ([id number]) on 10/13/2022 5:29:27 PM [facility] 10/12/2022 9:40 AM CDT 10/13/2022 5:29 PM CDT Trang Painter MD ECG ORDERABLES Performing Organization Address City/[facility]/[place] Co de Phone Number [facility] * LAB RESULTS ORDER (07/22/2022) Only the most recent of5 resultswithin the time period is included. 07/22/2022 Narrative 07/22/2022 Ordered by an unspecified provider. Scanned Document LAB - THERAPEUTIC DR UG MONITORING ORDERABLES * EEG AWAKE OR DROWSY ROUTINE (07/20/2022 4:43 PM CDT) Narrative Luda Navarro MD - 07/20/2022 4:43 PM uLda Muniz MD 07/20/2022 4:52 PM Patient Name: Thalia Esposito Date: 07/20/22 EEG#: [id number] Start Time: 07/20/2022 14:10 PM Stop Time: 07/20/2022 14:31 PM Clinical History: Thalia Esposito is 32 year old female with history of spells of decreased attentiveness. This EEG is ordered to rule out seizures. Current medications amphetamine-dextroamphetamine (Adderall) 10 MG tablet amphetamine-dextroamphetamine XR 24hr (Adderall XR) 30 MG capsule azaTHIOprine (Imuran) 50 MG tablet diphenhydrAMINE (Benadryl) 25 MG capsule famotidine (Pepcid) 20 MG tablet hydroxychloroquine (Plaquenil) 200 MG tablet lurasidone (Latuda) 40 MG tablet methocarbamol (Robaxin) 500 MG tablet QUEtiapine (SEROquel) 100 MG tablet QUEtiapine (SEROquel) 25 MG tablet rizatriptan (Maxalt) 5 MG tablet topiramate (Topamax) 25 MG tablet Description This is a routine 21-channel EEG tracing consisting of 20 channels of EEG obtained from electrodes placed on the scalp according to the international 10-20 system and one channel of EKG monitoring. It captures the awake state. It is a good quality study. Background The background consists of a posterior dominant alpha rhythm 8 - 9 Hz, 10- 15 microvolt. This is symmetric and attenuates with eye opening. Central and frontal low amplitude patterns were of 18 to 25 cycles per second, 5- 7 microvolt, and were symmetric. Activation Procedures Activation procedures were performed. Stepwise photic stimulation from 1 Hz up to 30 Hz did not produce any response. Hyperventilation was not performed. Sleep Sleep patterns were not observed. EKG was observed throughout the recording. IMPRESSION This is a normal awake routine EEG. No evidence of encephalopathy was observed. No epileptiform discharges were observed. Please note a normal interictal EEG does not rule out epilepsy. I personally reviewed this EEG with the resident and formulated the report. Luda Navarro M.D. Professor of Neurology Fidel Puri APRN-CABLE FERRY OPERATOR NEUROLOGY ORDERA BLES * MRI ANGIO BRAIN ARTERIAL WO CONT (07/20/2022 4:10 PM CDT) Only the most recent of2 resultswithin the time period is included. Anatomical Region Laterality Modality Head Magnetic Resonan ce 07/21/2022 2:39 PM CDT Impressions 07/24/2022 8:12 AM CDT IMPRESSION: 1. No large vessel occlusion, aneurysms, or hemodynamically significant stenosis in the head. > Interpreting Provider: Brooke Santa MD on 07/24/2022 8:12 AM Narrative 07/24/2022 8:12 AM CDT MRI ANGIO BRAIN ARTERIAL WO CONT Exam Date: 07/20/2022 4:10 PM EXAMINATION: Magnetic resonance angiography (MRA) of the head without contrast HISTORY: Z87.828: H/O head injury R41.82: Altered mental status, unspecified altered mental status type I63.81: Right thalamic infarction (CMS/HCC) R55: Syncope, unspecified syncope type TECHNIQUE: MR arteriography of the head was performed without contrast utilizing time of flight technique. COMPARISON: CT of the head from 02/18/2013. MRI of the brain and MRA of the head and neck from 12/21/2012. FINDINGS: The distal internal carotid arteries appear normal. The left A1 is hypoplastic, similar to the prior study. The remaining anterior and middle cerebral arteries appear otherwise grossly patent. The distal vertebral arteries appear normal. The basilar artery and posterior cerebral arteries appear normal. No aneurysms, vascular occlusions, or intracranial stenoses are identified. Procedure Note Brooke Santa MD - 07/24/2022 MRI ANGIO BRAIN ARTERIAL WO CONT Exam Date: 07/20/2022 4:10 PM EXAMINATION: Magnetic resonance angiography (MRA) of the head without contrast HISTORY: Z87.828: H/O head injury R41.82: Altered mental status, unspecified altered mental status type I63.81: Right thalamic infarction (CMS/HCC) R55: Syncope, unspecified syncope type TECHNIQUE: MR arteriography of the head was performed without contrast utilizing time of flight technique. COMPARISON: CT of the head from 02/18/2013. MRI of the brain and MRA of the head and neck from 12/21/2012. FINDINGS: The distal internal carotid arteries appear normal. The left A1 is hypoplastic, similar to the prior study. The remaining anterior andmiddle cerebral arteries appear otherwise grossly patent. The distal vertebral arteries appear normal. The basilar artery and posterior cerebralarteries appear normal. No aneurysms, vascular occlusions, or intracranialstenoses are identified. IMPRESSION: 1. No large vessel occlusion, aneurysms, or hemodynamically significant stenosis in the head. > Interpreting Provider: Brooke Santa MD on 07/24/2022 8:12 AM Fidel Puri FINANCIAL RISK MANAGER-CABLE FERRY OPERATOR MR ORDERABLES * SYPHILIS ANTIBODY CASCADING REFLEX (05/16/2022 1:33 PM ACTING INSTRUCTOR) Only the most recent of3 resultswithin the time period is included. Treponema pallidum Antibody Non-react javad Non-react javad 05/16/2022 3:49 PM ACTING INSTRUCTOR [facility] Comment: No Laboratory evidence of syphilis infection. Note: Circulating antibodies may be low or undetectable in early infection. If recent exposure is suspected, re-draw sample in 2-4 weeks and repeat testing. Blood BLOOD SPECIMEN / Unknown Lab Venipuncture / Unknown 05/16/2022 1:33 PM ACTING INSTRUCTOR 05/16/2022 3:06 PM ACTING INSTRUCTOR Aurea Lott DO LAB - SEROLOGY ORDER HEATHER [address] [address], [facility] [phone] * (ABNORMAL) TSH REFLEX FREE T4 (05/16/2022 10:33 AM ACTING INSTRUCTOR) TSH 10.782(H) 0.350 - 4.940 uIU/mL 05/16/2022 12:03 PM ACTING INSTRUCTOR [facility] Blood BLOOD SPECIMEN / Unknown Lab Venipuncture / Unknown 05/16/2022 10:33 AM ACTING INSTRUCTOR 05/16/2022 11:05 AM ACTING INSTRUCTOR Fidel Puri APRN-CABLE FERRY OPERATOR LAB - CHEMISTRY ORDERABLES [facility] [address] [place] [address], [facility] [phone] * (ABNORMAL) THYROID AB PANEL (TPO AB+THYROGLOB AB) (05/16/2022 10:33 AM ACTING INSTRUCTOR) Thyroid Peroxidase TPO Antibody 24 0 - 34 IU/mL 05/19/2022 2:11 PM ACTING INSTRUCTOR [facility] ([facility]) Thyroglobulin Antibody 2.2(H) 0.0 - 0.9 IU/mL 05/19/2022 2:11 PM ACTING INSTRUCTOR [facility] ([facility]) Comment:Thyroglobulin Antibo dy measured by Cory Chandler Methodology Blood BLOOD SPECIMEN / Unknown Lab Venipuncture / Unknown 05/16/2022 10:33 AM ACTING INSTRUCTOR 05/16/2022 10:55 AM ACTING INSTRUCTOR Narrative [facility] ([facility]) - 05/19/2022 2:11 PM ACTING INSTRUCTOR Performed at: [address] [place] [address] [id number] Skilled Nursing Case Manager: Get Oglesby PhD, Phone: [phone] Fidel Puri [facility] LAB - CHEMISTRY ORDERABLES Performing Organization Address City/[facility]/ZIP Co de Phone Number [facility] ([facility]) [address] [place] [address], [facility] * HOMOCYSTEINE BLOOD QUANTITATIVE (05/16/2022 10:33 AM ACTING INSTRUCTOR) [facility] Homocysteine 10.4 4.4 - 16.2 umol/L 05/16/2022 11:55 AM ACTING INSTRUCTOR [facility] Blood BLOOD SPECIMEN / Unknown Lab Venipuncture / Unknown 05/16/2022 10:33 AM ACTING INSTRUCTOR 05/16/2022 11:05 AM ACTING INSTRUCTOR Fidel Oconnoramisha [facility] LAB - CHEMISTRY ORDERABLES Performing Organization Address City/[facility]/ZIP Co de Phone Number [facility] [address] [place] [address], [facility] [phone] * (ABNORMAL) IRON + TIBC + FERRITIN (05/11/2022 11:49 AM ACTING INSTRUCTOR) Only the most recent of2 resultswithin the time period is included. Iron 33(L) 40 - 190 mcg/dL [facility] TIBC 469(H) 250 - 450 mcg/dL (calc) [facility] % Saturation 7(L) 16 - 45 % (calc) [facility] Ferritin 8(L) 16 - 154 ng/mL [facility] Comment: Test Performed at: [facility] [id number] [place] [address] LUNA BARRAZA MD Blood BLOOD SPECIMEN / Unknown 05/11/2022 11:49 AM ACTING INSTRUCTOR 05/11/2022 11:52 AM ACTING INSTRUCTOR [facility] LAB - EMISTRY ORDERABLES Performing Organization Address [facility] de Phone Number [address] [address] * METHYLMALONIC ACID BLOOD (05/11/2022 11:49 AM ACTING INSTRUCTOR) Pathologist [facility] Methylmalonic Acid 152 87 - 318 nmol/L [facility] Comment: This test was developed and its analytical performance characteristics have been determined by [employer] [place], [place]. It has not been cleared or approved by the U.S. Food and Drug Administration. This assay has been validated pursuant to the CLIA regulations and is used for clinical purposes. Test Performed at: [facility] [address] [place], [place] PARAS LOPEZ MD,PHD Blood BLOOD SPECIMEN / Unknown 05/11/2022 11:49 AM ACTING INSTRUCTOR 05/11/2022 11:52 AM ACTING INSTRUCTOR [facility] LAB - CH EMISTRY ORDERABLES Performing Organization Address [facility] Co de Phone Number [address] [address] * (ABNORMAL) VITAMIN D 25-HYDROXY (05/11/2022 11:49 AM ACTING INSTRUCTOR) Only the most recent of3 resultswithin the time period is included. Pathologist [facility] Vitamin D, 25 Hydroxy 14(L) 30 - 100 ng/mL [facility] Comment: Vitamin D Status 25-OH Vitamin D: Deficiency: <20 ng/mL Insufficiency: 20 - 29 ng/mL Optimal: > or = 30 ng/mL For 25-OH Vitamin D testing on patients on D2-supplementation and patients for whom quantitation of D2 and D3 fractions is required, the QuestAssureD(TM) 25-OH VIT D, (D2,D3), LC/MS/MS is recommended: order code 01140 (patients >2yrs). See Note 1 Note 1 For additional information, please refer to http://education.[email or web address]/faq/PQR467 (This link is being provided for informational/ educational purposes only.) REPORT COMMENT: FASTING:NO Test Performed at: [email or web address] [address] LUNA BARRAZA MD Blood BLOOD SPECIMEN / Unknown 05/11/2022 11:49 AM ACTING INSTRUCTOR 05/11/2022 11:52 AM ACTING INSTRUCTOR Nancy A [facility] LAB - CH EMISTRY ORDERABLES Performing Organization Address [facility]/[place] Co de Phone Number [facility] [address] [place] [address] * FOLATE (05/11/2022 11:49 AM ACTING INSTRUCTOR) Pathologist [facility] Folate 8.3 ng/mL [employer] Comment: Reference Range Low: <3.4 Borderline: 3.4-5.4 Normal: >5.4 Test Performed at: [email or web address] [place] [address] LUNA BARRAZA MD Blood BLOOD SPECIMEN / Unknown 05/11/2022 11:49 AM ACTING INSTRUCTOR 05/11/2022 11:52 AM ACTING INSTRUCTOR Nancy [facility] LAB - CH EMISTRY ORDERABLES Performing Organization Address [facility]/[place] Co de Phone Number [facility] [address] [place] [address] * VITAMIN B12 (05/11/2022 11:49 AM ACTING INSTRUCTOR) Pathologist [facility] Vitamin B12 274 200 - 1100 pg/mL [facility] Comment: Please Note: Although the reference range for vitamin B12 is 200-1100 pg/mL, it has been reported that between 5 and 10% of patients with values between 200 and 400 pg/mL may experience neuropsychiatric and hematologic abnormalities due to occult B12 deficiency; less than 1% of patients with values above 400 pg/mL will have symptoms. Test Performed at: [facility] [address] [place] [address] LUNA BARRAZA MD Blood BLOOD SPECIMEN / Unknown 05/11/2022 11:49 AM ACTING INSTRUCTOR 05/11/2022 11:52 AM ACTING INSTRUCTOR [facility] LAB - CH EMISTRY ORDERABLES Performing Organization Address [facility] de Phone Number [address] [address] * CULTURE URINE REFLEXED II (05/11/2022 11:42 AM ACTING INSTRUCTOR) [facility] Reflexive Urine Culture See Below [facility] Comment: CULTURE INDICATED - RESULTS TO FOLLOW Test Performed at: [facility] [address] LUNA BARRAZA MD 05/11/2022 11:4 2 AM ACTING INSTRUCTOR 05/11/2022 11:45 AM ACTING INSTRUCTOR Bob Varma MD LAB - MICROBIOLOGY O RDERABLES Performing Organization Address [facility]/[place] Co de Phone Number [address] [address] * (ABNORMAL) URINALYSIS W/MICROSCOPIC REFLEX TO CULTURE (05/11/2022 11:42 AM ACTING INSTRUCTOR) Only the most recent of13 resultswithin the time period is included. Pathologist [facility] Color UA YELLOW YELLOW [facility] Appearance CLEAR CLEAR [facility] Specific Llewellyn UA 1.011 1.001 - 1.035 [facility] pH UA 6.5 5.0 - 8.0 [facility] Glucose UA NEGATIVE NEGATIVE [facility] Bilirubin UA NEGATIVE NEGATIVE [facility] Ketone UA NEGATIVE NEGATIVE [facility] Blood UA NEGATIVE NEGATIVE [facility] Protein UA NEGATIVE NEGATIVE [facility] Nitrite NEGATIVE NEGATIVE [facility] Leukocyte Esterase 2+(A) NEGATIVE [facility] WBC UA 6-10(A) < OR = 5 /HPF [facility] RBC UA NONE SEEN < OR = 2 /HPF [facility] Epithelial Cell UA 0-5 < OR = 5 /HPF [facility] Bacteria UA NONE SEEN NONE SEEN /HPF [facility] Hyaline Casts NONE SEEN NONE SEEN /LPF [facility] Comment: Test Performed at: [address] [address] LUNA BARRAZA MD Urine URINE SPECIMEN OBTAINED BY CLEAN CATCH PROCEDURE / Unknown 05/11/2022 11:42 AM ACTING INSTRUCTOR 05/11/2022 11:45 AM ACTING INSTRUCTOR Bob Varma MD LAB - URINALYSIS ORD ERABLES Performing Organization Address [facility]/[place] Co de Phone Number [address] [address] * CULTURE URINE (05/11/2022 11:42 AM ACTING INSTRUCTOR) Only the most recent of27 resultswithin the time period is included. Culture [facility] Comment: CULTURE, URINE, ROUTINE Micro Number: [id number] Test Status: Final Specimen Source: Urine Specimen Quality: Adequate Result: No Growth REPORT COMMENT: FASTING:NO Test Performed at: [address] [address] LUNA BARRAZA MD 05/11/2022 11:4 2 AM ACTING INSTRUCTOR 05/11/2022 11:45 AM ACTING INSTRUCTOR Bob Varma MD LAB - MICROBIOLOGY O RDERABLES Performing Organization Address City/[facility]/ZIP Co de Phone Number [address] [address] * (ABNORMAL) URINALYSIS W/MICROSCOPIC NO CULTURE (04/22/2022 10:19 AM ACTING INSTRUCTOR) Only the most recent of21 resultswithin the time period is included. Color UA Arline(A) Straw, Yellow 04/22/2022 10:45 AM [facility] Clarity UA Slt Cloudy(A) Clear 04/22/2022 10:45 AM ACTING INSTRUCTOR [facility] Specific Llewellyn UA 1.025 1.005 - 1.030 04/22/2022 10:45 AM [facility] pH UA 5.0 5.0 - 8.0 pH 04/22/2022 10:45 AM [facility] Protein UA 2+(A) Negative 04/22/2022 10:45 AM [facility] Glucose UA Negative Negative 04/22/2022 10:45 AM [facility] Ketone UA Negative Negative 04/22/2022 10:45 AM [facility] Bilirubin UA Negative Negative 04/22/2022 10:45 AM [facility] Blood UA Negative Negative 04/22/2022 10:45 AM [facility] Nitrite UA Negative Negative 04/22/2022 10:45 AM [facility] Leukocyte Esterase Negative Negative 04/22/2022 10:45 AM [facility] Urobilinogen UA Negative Negative mg/dL 04/22/2022 10:45 AM [facility] RBC UA 11-20(A) None Seen, 0-2, 3-5 /HPF 04/22/2022 10:45 AM [facility] WBC UA 11-20(A) None Seen, 0-5 /HPF 04/22/2022 10:45 AM [facility] Bacteria UA Trace(A) None /HPF 04/22/2022 10:45 AM [facility] Squamous Epithelial Cells UA 0-2 None Seen, 0-2, 3-5 /HPF 04/22/2022 10:45 AM [facility] Mucus UA 3+ /LPF 04/22/2022 10:45 AM [facility] Urine URINE SPECIMEN OBTAINED BY SINGLE CATHETERIZATION OF URINARY BLADDER / Unknown Collection / Unknown 04/22/2022 10:19 AM ACTING INSTRUCTOR 04/22/2022 10:28 AM [facility] - 04/22/2022 10:45 AM [facility] Antonina Perales PA-C LAB - URINALYSIS OR DERABLES [facility] [address] [place] [address], [facility] [phone] * (ABNORMAL) BASIC METABOLIC PANEL (CALCIUM TOTAL) (04/22/2022 10:03 AM ACTING INSTRUCTOR) Only the most recent of46 resultswithin the time period is included. BUN 12 7 - 26 mg/dL 04/22/2022 10:49 AM [facility] Creatinine 0.69 0.56 - 0.96 mg/dL 04/22/2022 10:49 AM [facility] Sodium 133(L) 136 - 145 mmol/L 04/22/2022 10:49 AM [facility] Potassium 3.4(L) 3.5 - 4.5 mmol/L 04/22/2022 10:49 AM [facility] Chloride 103 98 - 107 mmol/L 04/22/2022 10:49 AM [facility] CO2 17(L) 22 - 29 mmol/L 04/22/2022 10:49 AM [facility] Glucose 97 70 - 115 mg/dL 04/22/2022 10:49 AM [facility] Calcium 8.7 8.4 - 10.2 mg/dL 04/22/2022 10:49 AM [facility] Anion Gap 16 8 - 18 04/22/2022 10:49 AM [facility] BUN/Creatinine Ratio 17 7 - 23 04/22/2022 10:49 AM [facility] Osmolality Calculated 276 270 - 300 mOsm/kg 04/22/2022 10:49 AM [facility] eGFR by CKD-EPI >90 >=90 mL/min/1.7 3 m2 04/22/2022 10:49 AM [facility] Blood BLOOD SPECIMEN / Unknown Venipuncture / Unknown 04/22/2022 10:03 AM ACTING INSTRUCTOR 04/22/2022 10:19 AM ACTING INSTRUCTOR Antonina Perales PA-C LAB - CHEMISTRY ORD ERABLES [facility] [address] [place] [address], [facility] [phone] * CT RENAL STONE (04/19/2022 2:04 PM ACTING INSTRUCTOR) Anatomical Region Laterality Modality Abdomen Computed Tomogra phy 04/19/2022 2:17 PM ACTING INSTRUCTOR Impressions 04/19/2022 4:30 PM ACTING INSTRUCTOR Impression: 1.5 mm nonobstructing renal stone in the right kidney lower pole. No hydronephrosis or hydroureter. 2.No acute abnormality in the abdomen or pelvis. 3.Multiple bilateral subcentimeter hyperattenuating renal lesions likely represent high density cysts. 4.Mild splenomegaly. > Dictated by Tyra Mcguire MD (residential remodeling subcontractor). I, Vishnu Roque MD have personally reviewed and interpreted this examination/study. > Interpreting Provider: Vishnu Roque MD on 04/19/2022 4:30 PM Narrative 04/19/2022 4:30 PM ACTING INSTRUCTOR EXAMINATION: CT RENAL STONE DATE/TIME OF EXAM: 04/19/2022 2:07 PM, LOCATION [facility] HISTORY: R10.9: Right flank pain, 31-year-old female, evaluate Renal stone COMPARISON: CTPA abdomen pelvis with contrast dated 10/16/2021 TECHNIQUE: CT of the abdomen and pelvis was performed without contrast according to standard protocol. Findings: Evaluation of visceral and vascular structures is degraded due to lack of intravenous contrast administration. Lower Chest: The visible lung bases are clear. There is a 2 mm pleural-based nodular opacity along the anterior aspect of left major fissure (series 3 image 8) that may represent a small lymph node or atelectasis. The heart size is normal without pericardial effusion. Scattered calcifications along the anterior diaphragm/inferior pericardium. Liver: The liver appears normal. Gallbladder and Bile Ducts: The gallbladder is absent. The intrahepatic and extrahepatic bile ducts are nondilated. Spleen: Mild splenomegaly measuring 14.4 cm anteroposteriorly (series 3 image 35).. Pancreas: Normal. Adrenals: Normal in morphology. Kidneys: Multiple bilateral subcentimeter hyperattenuating renal lesions likely represent hemorrhagic or proteinaceous cysts. Otherwise the kidneys appear normal in size and configuration. 5 mm nonobstructing stone is noted in the right kidney lower pole (series 3 image 63). There is no evidence of hydronephrosis or hydroureter. Gastrointestinal: The distal esophagus and stomach appear normal. The small bowel and colon are normal in caliber without evidence of wall thickening or obstruction. The appendix appears normal without appendicolith or surrounding inflammatory changes. Mesentery/Peritoneum/Retroperitoneum: No free intraperitoneal air. No free fluid in the abdomen or pelvis. Multiple subcentimeter retroperitoneal lymph nodes measuring up to 7 mm in the left periaortic region (series 3 image 45) are nonspecific. No enlarged abdominopelvic lymph nodes. Bladder: The bladder is decompressed. Reproductive Organs: An intrauterine device is in appropriate positioning. A dominant left ovarian follicle is noted (series 3 image 111). The right ovary is unremarkable. Vasculature: No vascular abnormality is present. Bones: No suspicious lytic or blastic lesions. The visible osseous structures are intact. Soft tissues: Normal. Procedure Note Vishnu Roque MD - 04/19/2022 EXAMINATION: CT RENAL STONE DATE/TIME OF EXAM: 04/19/2022 2:07 PM, LOCATION [facility] HISTORY: R10.9: Right flank pain, 31-year-old female, evaluate Renalstone COMPARISON: CTPA abdomen pelvis with contrast dated 10/16/2021 TECHNIQUE: CT of the abdomen and pelvis was performed without contrast according to standard protocol. Findings: Evaluation of visceral and vascular structures is degraded due to lackof intravenous contrast administration. Lower Chest: The visible lung bases are clear. There is a 2 mm pleural-based nodular opacity along the anterior aspect of left major fissure (series 3 image8) that may represent a small lymph node or atelectasis. The heart size is normal without pericardial effusion. Scattered calcifications along the anterior diaphragm/inferior pericardium. Liver: The liver appears normal. Gallbladder and Bile Ducts: The gallbladder is absent. The intrahepatic and extrahepatic bile ductsare nondilated. Spleen: Mild splenomegaly measuring 14.4 cm anteroposteriorly (series 3 image35).. Pancreas: Normal. Adrenals: Normal in morphology. Kidneys: Multiple bilateral subcentimeter hyperattenuating renal lesions likely represent hemorrhagic or proteinaceous cysts. Otherwise the kidneysappear normal in size and configuration. 5 mm nonobstructing stone is noted inthe right kidney lower pole (series 3 image 63). There is no evidence of hydronephrosis or hydroureter. Gastrointestinal: The distal esophagus and stomach appear normal. The small bowel andcolon are normal in caliber without evidence of wall thickening orobstruction. The appendix appears normal without appendicolith or surrounding inflammatory changes. Mesentery/Peritoneum/Retroperitoneum: No free intraperitoneal air. No free fluid in the abdomen or pelvis. Multiple subcentimeter retroperitoneal lymph nodes measuring up to 7 mmin the left periaortic region (series 3 image 45) are nonspecific. Noenlarged abdominopelvic lymph nodes. Bladder: The bladder is decompressed. Reproductive Organs: An intrauterine device is in appropriate positioning. A dominant left ovarian follicle is noted (series 3 image 111). The right ovary is unremarkable. Vasculature: No vascular abnormality is present. Bones: No suspicious lytic or blastic lesions. The visible osseous structuresare intact. Soft tissues: Normal. Impression: 1.5 mm nonobstructing renal stone in the right kidney lower pole. No hydronephrosis or hydroureter. 2.No acute abnormality in the abdomen or pelvis. 3.Multiple bilateral subcentimeter hyperattenuating renal lesions likely represent high density cysts. 4.Mild splenomegaly. > Dictated by Tyra Mcguire MD (residential remodeling subcontractor). I, Vishnu Roque MD have personally reviewed and interpreted this examination/study. > Interpreting Provider: Vishnu Roque MD on 34:30 PM Magdaleno Beltrán PA-C CT ORDERAB LES * HCG BETA BLOOD QUANTITATIVE (04/19/2022 11:47 AM ACTING INSTRUCTOR) Only the most recent of2 resultswithin the time period is included. Beta-hCG Total Quantitative <3 mIU/mL 04/19/2022 12:31 PM ACTING INSTRUCTOR [facility] Comment: This assay is cleared for use in the early detection of only. It is not approved for any other uses such as tumor marker screening, tumor marker monitoring, etc. and should not be used for any other purposes. HCG Numeric Result Interpretation: Non- Females: < 5 mIU/mL Post-Menopausal Females: < 7 mIU/mL Blood BLOOD SPECIMEN / Unknown Venipuncture / Unknown 04/19/2022 11:47 AM ACTING INSTRUCTOR 04/19/2022 11:52 AM ACTING INSTRUCTOR Magdaleno Beltrán PA-C LAB - CHEM ISTRY ORDERABLES [facility] [address] [place] [address], [facility] [phone] * IR IVC FILTER REMOVAL (02/01/2022 2:53 PM CDT) Anatomical Region Laterality Modality Abdomen, Pelvis X-Ray Angiograph y 02/01/2022 2:58 PM CDT Impressions 02/04/2022 3:27 PM CDT Impression: Removal of a retrievable infrarenal Bard Halley IVC filter under fluoroscopic guidance, as described above. I, Dr. Herrera, was present and performed/supervised the entire procedure. > Dictated by Dr. Eddie Meadows, IR resident. I, Eddie Herrera MD have personally reviewed and interpreted this examination/study. > Interpreting Provider: Eddie Herrera MD on 02/04/2022 3:27 PM Narrative 02/04/2022 3:27 PM CDT History: 31 year old female with bipolar II disorder, restrictive lung disease, systemic lupus erythematous, antiphospholipid syndrome, history of massive PEduring pregnancywith IVC filter placement in 2013 at OSH.She presents for removal of the IVC filter. Operators: 1.Attending - Eddie Herrera 2.Resident - Eddie Meadows Anesthesia: 1.Local anesthesia - 5 mL of 1% lidocaine 2.Monitored anesthesia care Procedure: 1.Ultrasound-guided access of the right internal jugular vein. 2.Inferior venacavogram. 3.Retrieval of an infrarenal Bard Marathon inferior vena cava filter under fluoroscopic guidance. 4.Post-retrieval inferior venacavogram. Fluoroscopic time: 8.2 minutes Contrast: 20 mL of Isovue 300 Procedure in detail: The procedure, risks, and possible complications were explained to the patient in detail, and informed consent was obtained. The patient was placed supine on the angiographic table. The right neck was prepped and draped in the usual sterile manner. A pool nurse film of the abdomen was obtained, which demonstrated an IVC filter in the mid abdomen. The filter was intact, and there was no evidence of migration or tilt. Limited ultrasound of the right neck demonstrated a patent and compressible right internal jugular vein. A barber scale image was documented. After instillation of 1% local lidocaine, a small incision was made in the right lower neck. Using a micropuncture needle, the right internal jugular vein was accessed under realtime ultrasound guidance. The needle entry was documented. Following a series of exchanges, an 16 Gambian vascular sheath was placed and advanced into the lower IVC over an 0.035 inch guidewire.An inferior venacavogram was then obtained through the sheath. The study revealed a patent inferior vena cava without any clot burden or congenital abnormality. The IVC filter was in good position without tilt or penetration. A 10 mm gooseneck snare was advanced into the IVC and the filter hook was engaged. Attempts were made to capture the filter within the 16 Gambian vascular sheath, which were unsuccessful. Next a 14 Gambian laser sheath was advanced over a wire into the IVC through the 16 Gambian parent sheath. The wire was exchanged for the 10 mm gooseneck snare. The filter hook was again snared and the 14 Gambian laser sheath was advanced over the filter, successfully capturing the entire filter. 3 laser pulse trains were used during the process. The laser sheath and captured filter removed in their entirety, and complete removal was confirmed on the back table. A post-retrieval inferior venacavogram was performed which demonstrated no focal abnormalities. The vascular sheath was then removed and hemostasis was achieved with manual compression. Sterile dressing was applied. The patient tolerated the procedure well and was transferred to the holding area in stable condition. There were no immediate complications associated with the procedure. Procedure Note Eddie Herrera MD - 02/07/2022 History: 31 year old female with bipolar II disorder, restrictive lung disease, systemic lupus erythematous, antiphospholipid syndrome, historyof massive PEduring pregnancywith IVC filter placement in 2013 at OSH.She presents for removal of the IVC filter. Operators: 1.Attending - Eddie Herrera 2.Resident - Eddie Meadows Anesthesia: 1.Local anesthesia - 5 mL of 1% lidocaine 2.Monitored anesthesia care Procedure: 1.Ultrasound-guided access of the right internal jugular vein. 2.Inferior venacavogram. 3.Retrieval of an infrarenal Bard Marathon inferior vena cava filter under fluoroscopic guidance. 4.Post-retrieval inferior venacavogram. Fluoroscopic time: 8.2 minutes Contrast: 20 mL of Isovue 300 Procedure in detail: The procedure, risks, and possible complications were explained to the patient in detail, and informed consent was obtained. The patient was placed supine on the angiographic table. The right neck was prepped and draped in the usual sterile manner. A pool nurse film of the abdomen was obtained, which demonstrated an IVC filter in the mid abdomen. Thefilter was intact, and there was no evidence of migration or tilt. Limited ultrasound of the right neck demonstrated a patent andcompressible right internal jugular vein. A barber scale image was documented. After instillation of 1% local lidocaine, a small incision was made in theright lower neck. Using a micropuncture needle, the right internal jugularvein was accessed under realtime ultrasound guidance. The needle entry was documented. Following a series of exchanges, an 16 Gambian vascular sheath was placed and advanced into the lower IVC over an 0.035 inch guidewire.An inferior venacavogram was then obtained through the sheath. The study revealed a patent inferior vena cava without any clot burden or congenital abnormality. The IVC filter was in good position without tilt or penetration. A 10 mm gooseneck snare was advanced into the IVC and the filter hookwas engaged. Attempts were made to capture the filter within the 16 Gambian vascular sheath, which were unsuccessful. Next a 14 Gambian laser sheath was advanced over a wire into the IVCthrough the 16 Gambian parent sheath. The wire was exchanged for the 10 mmgooseneck snare. The filter hook was again snared and the 14 Gambian laser sheathwas advanced over the filter, successfully capturing the entire filter. 3laser pulse trains were used during the process. The laser sheath and captured filter removed in their entirety, and complete removal was confirmed onthe back table. A post-retrieval inferior venacavogram was performed which demonstratedno focal abnormalities. The vascular sheath was then removed and hemostasis was achieved with manual compression. Sterile dressing was applied. The patient tolerated the procedure well and [facility]. There were no immediate complicationsassociated with the procedure. Impression: Removal of a retrievable infrarenal Bard Marathon IVC filter under fluoroscopic guidance, as described above. Dr. Javier Gregg, was present and performed/supervised the entire procedure. > Dictated by Dr. Eddie Meadows, IR resident. Eddie Gregg MD have personally reviewed and interpreted this examination/study. > Interpreting Provider: Eddie Herrera MD on 02/04/2022 3:27 PM Eddie Herrera MD IR ORDERABLES * ETT LINE PERFORMABLE (02/01/2022 1:39 PM CDT) Narrative Javon Miranda Anes Asst - 02/01/2022 1:39 PM CDT Javon Miranda Anes Asst 02/01/2022 1:55 PM Endotracheal Tube Placement: Patient Location: OR. Intubation Event Date/Time: 02/01/2022 1:39 PM Procedure: intubation (60069). Procedure Section: Sedation: under general anesthesia. Indications for Airway Management: anesthesia Induction: standard IV Patient Position: sniffing Mask Ventilation: easy. Blade Type: Chloé Blade Size: 3 Laryngoscopy View: grade 1 (full cords) Intubation Adjuncts: stylet Tube: endotracheal tube Placement: oral Tube Size (MM): 7 Depth of Insertion (CM): 21 Measured From: teeth Cuff Inflated With: air Number of Attempts: 1. Placement Verified By: direct visualization, bilateral breath sounds, chest auscultation, CO2 monitor and CO2 detector Tube secured with: adhesive tape. Dentition unchanged? Yes Difficult Airway? No. Procedure Start Time: 02/01/2022 1:39 PM. Staff Section Anesthesia Provider: Javon Miranda Anes Asst, Performed the procedure Provider #1: Guru Wheeler MD. Additional Comments: Atraumatic intubation, dentition as in pre-op. Guru Wheeler MD GENERAL ANESTHESIA O RDERABLES * BLOOD TYPE VERIFICATION (02/01/2022 11:52 AM CDT) Only the most recent of3 resultswithin the time period is included. ABO Rh A POS 02/01/2022 12:25 PM CDT [facility] Blood Bank BLOOD SPECIMEN / Unknown Venipuncture / Unknown 02/01/2022 11:52 AM CDT 02/01/2022 11:56 AM CDT Fannie Jiang MD LAB - BLOOD BANK ORD ERABLES [facility] [address] [place] [address], [facility] [phone] * (ABNORMAL) HCG URINE QUALITATIVE - POCT (IP) INTERFACED (02/01/2022 10:48 AM CDT) Only the most recent of2 resultswithin the time period is included. HCG Qual Urine Positive(A ) Negative 02/01/2022 2:19 PM CDT [facility] Urine URINE / Unknown 02/01/2022 1 0:48 AM CDT 02/01/2022 2:19 PM CDT Eddie Herrera MD LAB - POINT OF CARE ORDERABLES [facility] [address] [place] [id number], [facility] [phone] * TYPE + SCREEN PANEL (02/01/2022 10:22 AM CDT) Only the most recent of9 resultswithin the time period is included. Antibody Screen NEG 11:21 AM CDT [facility] ABO Rh A POS 02/01/2022 11:21 AM CDT [facility] Blood Bank BLOOD SPECIMEN / Unknown Venipuncture / Unknown 02/01/2022 10:22 AM CDT 02/01/2022 10:31 AM CDT Provider Unknown LAB - BLOOD BANK ORD ERABLES [facility] [address] [place] [address], [facility] [phone] * HCG URINE QUAL POCT NOTIFICATION (02/01/2022 10:16 AM CDT) Comment Notification Label Only - See Separate Report 02/01/2022 11:30 AM CDT [facility] Urine URINE / Unknown 02/01/2022 1 0:16 AM CDT 02/01/2022 10:16 AM CDT Eddie Herrera MD LAB - URINALYSIS ORD ERABLES Performing Organization Address [facility]/ZIP Co de Phone Number [facility] [address] [place] [address], [facility] [phone] * PT-INR [facility] (02/01/2022 9:48 AM CDT) Only the most recent of65 resultswithin the time period is included. PT 12.7 12.1 - 14.8 Seconds 02/01/2022 10:27 AM CDT [facility] INR 1.0 See Comment 02/01/2022 10:27 AM CDT [facility] Comment:The suggested therap eutic range for standard coumadin (warfarin) therapy is an INR of 2.0-3.0. For high-risk patients (Mechanical Mitral Valve Prosthesis, etc.), the suggested prophylactic therapeutic range is an INR of 2.5-3.5. Blood BLOOD SPECIMEN / Unknown Venipuncture / Unknown 02/01/2022 9:48 AM CDT 02/01/2022 9:54 AM CDT Eddie Herrera MD LAB - COAGULATION OR DERABLES Performing Organization Address [facility] Co de Phone Number [address] [address], [facility] [phone] * SIX MINUTE WALK (01/21/2022 4:07 PM CDT) Impressions Markus Whittaker MD - 01/21/2022 4:07 PM CDT [facility] DEPARTMENT OF PULMONARY, CRITICAL CARE, AND SLEEP MEDICINE SIX MINUTE WALK TEST Thalia Esposito 01/21/2022 Interpretation: The patient walked for 6 minutes on room air (O2) and covered total distance of 495 meters. On the Inderjit scale at baseline, reported dyspnea was 0.5 and fatigue was 6. At the end of the study, the Inderjit reported dyspnea was 5 and fatigue was 8. There were no additional symptoms reported and oxygen saturation remained above 98% throughout the test. IMPRESSION: 1. Total 6 minute walk distance is 495 meters, which is below the lower limit of normal of 548 meters for this patient. 2. There is no available study for comparison. Jayda Rick DO Pulmonary & Critical Care Fellow I have personally reviewed the fellow's interpretation of the test and made any necessary changes when needed. Markus Whittaker MD [facility] Division of Pulmonary, Critical Care and Sleep Medicine [facility] Pager: [phone] Narrative Markus Whittaker MD - 01/21/2022 4:07 PM CDT Jayda Rick DO 01/21/2022 4:24 PM Michael Mariscal MD RESPIRATORY [facility] ORDERABLES * COMPLETE PFT W/WO BRONCHODILATOR (01/21/2022 4:02 PM CDT) Impressions Markus Whittaker MD - 01/21/2022 4:02 PM CDT [facility] DEPARTMENT OF PULMONARY, CRITICAL CARE, AND SLEEP MEDICINE PULMONARY FUNCTION TEST Please see technologist's comments mentioned in the report. INTERPRETATION: SPIROMETRY: FVC: decreased FEV1: decreased FEV1/FVC ratio is normal. BRONCHODILATOR RESPONSE: There is no significant response to bronchodilator therapy however does not mean the patient would not benefit from bronchodilator therapy FLOW-VOLUME LOOPS: small flow-volume loops Lung volumes: Lung volumes show reduced total lung capacity and normal residual volume. DLCO: Unadjusted for Hb and COHb is decreased. DLCO: Corrected for Hb and COHb is not able to perform. AIRWAY RESISTANCE: The airway resistance is normal and the specific conductance is normal ARTERIAL BLOOD GAS ANALYSIS: Not performed IMPRESSION: - Moderate Restrictive ventilatory limitation - There is decreased uncorrected DLCO. Consider adjusting for hemoglobin if clinically indicated. - No significant positive bronchodilator response, however this does not preclude the use of bronchodilators. - Compared with previous study on 12/2012, there is a 920 mL increase in FEV1, 1.01 L increase in FVC, 1.34 L increase in TLC, and 4.79 ml/min/mmHg increase in DLCO. Jayda Rick DO Pulmonary/Critical Care Medicine Fellow I have personally reviewed the fellow's interpretation of the test and made any necessary changes when needed. Markus Whittaker MD [facility] Division of Pulmonary, Critical Care and Sleep Medicine [facility] Pager: [phone] Narrative Markus Whittaker MD - 01/21/2022 4:02 PM CDT Jayda Rick DO 01/21/2022 4:24 PM Michael Mariscal MD RESPIRATORY [facility] ORDERABLES * ECHO COMPLETE (01/21/2022 1:39 PM CDT) Only the most recent of5 resultswithin the time period is included. Anatomical Region Laterality Modality Chest Echo 01/21/2022 1:06 PM CDT Narrative Procedure Note Sheila Mckinley MD - 01/21/2022 Michael Mariscal MD ECHOCARDIOGRAPH Y RADIANT * DNA ANTIBODY DS CRITHIDIA W/REFLEX TITER (01/17/2022 8:38 AM CDT) dsDNA Antibody Crithidia IFA NEGATIVE NEGATIVE [facility] Comment: Test Performed at: [facility] [address] [phone] RADHA ROSADO MD 01/17/2022 8:38 AM CDT 01/17/2022 8:40 AM CDT Bob Varma MD LAB - HEMATOLOGY ORD ERABLES [employer] [address] [place] [address] * (ABNORMAL) DNA ANTIBODY DOUBLE STRANDED (01/17/2022 8:38 AM CDT) Only the most recent of32 resultswithin the time period is included. dsDNA Antibody 53(H) IU/mL [facility] Comment: IU/mL Interpretation < or = 4 Negative 5-9 Indeterminate > or = 10 Positive Test Performed at: [facility] [address] [place] [address] WESLEY ARAUJO DO,MPH 01/17/2022 8:38 AM CDT 01/17/2022 8:40 AM CDT Bob Varma MD LAB - HEMATOLOGY ORD ERABLES Performing Organization Address [facility] de Phone Number [facility] [phone] [place] [phone] * ALDOLASE (01/17/2022 8:38 AM CDT) Only the most recent of9 resultswithin the time period is included. Aldolase 3.5 < OR = 8.1 U/L [facility] Comment: Test Performed at: [facility] [place] [id number] WESLEY ARAUJO DO,MPH 01/17/2022 8:38 AM CDT 01/17/2022 8:40 AM CDT Bob Varma MD LAB - CHEMISTRY TOSHIA POPE Performing Organization Address [facility] de Phone Number [facility] [phone] [place] [address] * LDH BLOOD (01/17/2022 8:38 AM CDT) Only the most recent of10 resultswithin the time period is included. LD-Total 133 100 - 200 U/L [facility] Comment: Test Performed at: [facility] [place] [address] WESLEY ARAUJO DO,MPH 01/17/2022 8:38 AM CDT 01/17/2022 8:40 AM CDT Bob Varma MD LAB - CHEMISTRY TOSHIA POPE Performing Organization Address [facility] de Phone Number [facility] [phone] [place], [place] [phone] * CK BLOOD (01/17/2022 8:38 AM CDT) Only the most recent of10 resultswithin the time period is included. CK 81 29 - 143 U/L [facility] Comment: Test Performed at: [facility] [place] [address] WESLEY ARAUJO DO,MPH 01/17/2022 8:38 AM CDT 01/17/2022 8:40 AM CDT Bob Varma MD LAB - CHEMISTRY ORDE NIKO Performing Organization Address [facility] Co de Phone Number [facility] [phone] [place] [address] * COMPLEMENT C4 (11/16/2021 12:24 PM CDT) Only the most recent of35 resultswithin the time period is included. Complement C4 16 15 - 57 mg/dL [facility] Comment: Test Performed at: [facility] [id number] WESLEY ARAUJO DO,MPH Blood BLOOD SPECIMEN / Unknown 11/16/2021 12:24 PM CDT 11/16/2021 12:26 PM CDT Bob Varma MD LAB - SEROLOGY ORDER HEATHER Performing Organization Address [facility] de Phone Number [facility] [address] [place] [address] * PROTEIN CREATININE RATIO URINE RANDOM PNL (11/16/2021 12:24 PM CDT) Only the most recent of4 resultswithin the time period is included. Creatinine Urine 179 20 - 275 mg/dL [facility] Protein/Creatini ne Ratio 112 21 - 161 mg/g creat [facility] Protein/Creatini ne Ratio 0.112 0.021 - 0.161 mg/mg creat [facility] Protein Random Urine 20 5 - 24 mg/dL [facility] Comment: REPORT COMMENT: FASTING:YES Test Performed at: [facility] [id number] WESLEY ARAUJO DO,MPH Urine URINE SPECIMEN OBTAINED BY CLEAN CATCH PROCEDURE / Unknown 11/16/2021 12:24 PM CDT 11/16/2021 12:26 PM CDT Bob Varma MD LAB - URINE CHEMISTR Y ORDERABLES Performing Organization Address [facility] Co de Phone Number [facility] [address] [place] [address] * COMPLEMENT C3 (11/16/2021 12:24 PM CDT) Only the most recent of28 resultswithin the time period is included. Complement C3 105 83 - 193 mg/dL [facility] Comment: Test Performed at: [facility] [address] [place] [address] WESLEY ARAUJO DO,MPH Blood BLOOD SPECIMEN / Unknown 11/16/2021 12:24 PM CDT 11/16/2021 12:26 PM CDT Bob Varma MD LAB - CHEMISTRY TOSHIA POPE [facility] [address] [place] [address] * CT CHEST PE W ABD PELVIS W CONT (10/16/2021 4:21 AM CDT) Anatomical Region Laterality Modality Chest, Abdomen, Pelvis Computed Tomography 10/16/2021 4:28 AM CDT Impressions 10/16/2021 4:27 PM CDT Impression: 1.No evidence of pulmonary embolism. 2.No acute cardiopulmonary process. 3.No acute process in the abdomen or pelvis. 4.Redemonstrated 1.2 cm hypoattenuating lesion in the right kidney lower pole measuring higher than simple fluid density. Further evaluation with renal ultrasound may be considered. Report drafted by Tyra Mcguire (resident) I, Dr. RUBI DOSHI have personally reviewed and interpreted this examination/study. This report was electronically signed by RUBI DOSHI on 10/16/2021 4:27 PM . Narrative 10/16/2021 4:27 PM CDT Procedure Information DATE: 10/16/2021 4:21 AM EXAMINATION: 1. Computed tomography (CT) of the chest with contrast 2. CT of the abdomen and pelvis with contrast TECHNIQUE: CT of the chest was performed following the uneventful administration of 100 mL of Isovue 370 intravenous contrast according to a pulmonary embolism protocol. CT of the abdomen and pelvis was also performed during the portal venous phase according to standard protocol. Multiplanar reconstructions were produced. Clinical Information HISTORY: R07.89: Chest pressure, history of pulmonary embolism and lupus anticoagulant disorder COMPARISON: CT PE protocol dated 07/24/2021, CT abdomen pelvis with contrast dated 04/01/2019. Findings Chest: Study Quality This examination for the diagnosis of pulmonary embolism is: adequate. Lines/Tubes: None. Pulmonary Vessels: No evidence of pulmonary embolism is seen. Pulmonary artery is not enlarged. Lower neck and axillae: The thyroid gland is normal. Unchanged prominent left axillary lymph nodes measuring up to 1.0 cm (series 5 image 52). Mediastinum and Alexandra: No enlarged lymph nodes are present. Heart and Pericardium: The cardiac chambers are normal in size. Trace pericardial fluid is present. Lung Parenchyma, Airways, and Pleural Spaces: The central airway is patent. Mild bibasilar atelectasis. 3mm nodule in th right lower lobe (series 7, image 47). Unchanged 3 mm pleural-based nodule along the left major fissure (series 7 image 60). There is also a 2 mm pleural-based nodule in the left lower lobe (series 7 image 60), corresponding to a previously demonstrated linear atelectasis. No suspicious lung nodule is identified. There is no pleural effusion or pneumothorax. Abdomen/pelvis: Hepatobiliary: The liver is normal. There is a small calcification adjacent to the inferior border of right hemiliver (series 6 image 64). The gallbladder is surgically absent. The portal vein is patent. No intra or extrahepatic biliary dilatation. Pancreas: Normal. Spleen: Normal. Kidneys: Several bilateral hypoattenuating renal lesions, including a 1.1 cm cyst in the left kidney interpolar region (series 6 image 53) and 1.2 cm hypoattenuating lesion in the right kidney lower pole (series 12 image 59) measuring higher than simple fluid density. Otherwise bilateral kidneys enhance symmetrically. No nephrolithiasis or hydronephrosis. Adrenals: Normal. Retroperitoneum: Normal. Peritoneum: No free intraperitoneal air. Gastrointestinal: The stomach and visualized loops of bowel are unremarkable. Appendix: Normal. Pelvic Structures: Irregular cystic lesion with hyperenhancing thick gaona in the right pelvis (series 6 image 123), most likely represents a corpus luteum cyst. Small volume of free pelvic fluid is likely physiologic. Vasculature: Inferiorly vena cava filter is present. Bones: The visible osseous structures are intact. Soft tissues: Normal. Procedure Note Rubi Doshi MD - 10/16/2021 Procedure Information DATE: 10/16/2021 4:21 AM EXAMINATION: 1. Computed tomography (CT) of the chest with contrast 2. CT of the abdomen and pelvis with contrast TECHNIQUE: CT of the chest was performed following the uneventful administration of 100 mL of Isovue 370 intravenous contrast according to a pulmonary embolism protocol. CT of the abdomen and pelvis was also performedduring the portal venous phase according to standard protocol. Multiplanar reconstructions were produced. Clinical Information HISTORY: R07.89: Chest pressure, history of pulmonary embolism and lupus anticoagulant disorder COMPARISON: CT PE protocol dated 07/24/2021, CT abdomen pelvis with contrast dated 04/01/2019. Findings Chest: Study Quality This examination for the diagnosis of pulmonary embolism is: adequate. Lines/Tubes: None. Pulmonary Vessels: No evidence of pulmonary embolism is seen. Pulmonary artery is not enlarged. Lower neck and axillae: The thyroid gland is normal. Unchanged prominent left axillary lymphnodes measuring up to 1.0 cm (series 5 image 52). Mediastinum and Alexandra: No enlarged lymph nodes are present. Heart and Pericardium: The cardiac chambers are normal in size. Trace pericardial fluid is present. Lung Parenchyma, Airways, and Pleural Spaces: The central airway is patent. Mild bibasilar atelectasis. 3mm nodule inth right lower lobe (series 7, image 47). Unchanged 3 mm pleural-basednodule along the left major fissure (series 7 image 60). There is also a 2 mm pleural-based nodule in the left lower lobe (series 7 image 60), corresponding to a previously demonstrated linear atelectasis. No suspicious lung nodule is identified. There is no pleural effusion or pneumothorax. Abdomen/pelvis: Hepatobiliary: The liver is normal. There is a small calcification adjacent to the inferior border of right hemiliver (series 6 image 64). The gallbladderis surgically absent. The portal vein is patent. No intra or extrahepatic biliary dilatation. Pancreas: Normal. Spleen: Normal. Kidneys: Several bilateral hypoattenuating renal lesions, including a 1.1 cm cyst in the left kidney interpolar region (series 6 image 53) and 1.2 cm hypoattenuating lesion in the right kidney lower pole (series 12 image59) measuring higher than simple fluid density. Otherwise bilateral kidneys enhance symmetrically. No nephrolithiasis or hydronephrosis. Adrenals: Normal. Retroperitoneum: Normal. Peritoneum: No free intraperitoneal air. Gastrointestinal: The stomach and visualized loops of bowel are unremarkable. Appendix: Normal. Pelvic Structures: Irregular cystic lesion with hyperenhancing thick gaona in the right pelvis (series 6 image 123), most likely represents a corpus luteumcyst. Small volume of free pelvic fluid is likely physiologic. Vasculature: Inferiorly vena cava filter is present. Bones: The visible osseous structures are intact. Soft tissues: Normal. Impression: 1.No evidence of pulmonary embolism. 2.No acute cardiopulmonary process. 3.No acute process in the abdomen or pelvis. 4.Redemonstrated 1.2 cm hypoattenuating lesion in the right kidney lower pole measuring higher than simple fluid density. Further evaluation with renal ultrasound may be considered. Report drafted by Tyra Mcguire (resident) I, Dr. RUBI DOSHI have personally reviewed and interpreted this examination/study. This report was electronically signed by RUBI DOSHI on 10/16/2021 4:27 PM . Silvestre Fairchild MD CT ORDERABLES * HCG URINE QUALITATIVE (10/15/2021 9:32 PM CDT) Only the most recent of7 resultswithin the time period is included. Pathologist [facility] Test Urine Negative Negative 10/15/2021 10:05 PM CDT [facility] Urine URINE / Unknown Collection / Unknown 10/15/2021 9:32 PM CDT 10/15/2021 9:39 PM CDT Amira Murdock FINANCIAL RISK MANAGER-CABLE FERRY OPERATOR LAB - URINALYS IS ORDERABLES [facility] [address] [place] [address], [facility] [phone] * (ABNORMAL) D-DIMER (10/15/2021 7:42 PM CDT) Only the most recent of2 resultswithin the time period is included. Pathologist [facility] D-Dimer Quantitative 0.65(H) <=0.50 mcg/mL FEU 10/15/2021 8:15 PM CDT [facility] Comment: In the absence of clinical symptoms, a value less than or equal to 0.5 mcg/mL FEU significantly decreases the probability of PE/DVT (negative predictive value >95%). 1 mcg/mL FEU = 1 Fibrinogen Equivalent Unit (approximates 0.5 mcg/ml of D- Dimer). ISTH DIAGNOSTIC SCORING SYSTEM FOR DIC Score 0 1 2 3 Platelet Count(x10^3/uL) > 100 < 100 < 50 N/A PT Prolongation above upper limit of normal 0-3 3-6 > 6 N/A range (seconds) Fibrinogen (mg/dL) > 100 < 100 N/A N/A D-Dimer (mcg/mL FEU) < 0.50 N/A 0.50-5.0 > 5 Calculate Cumulative Score: > or = 5 :compatible with overt DIC < 5 :suggestive for non-overt DIC N/A = Non applicable Reference: Br. J. Haematol. 145:24-33,2009. Blood BLOOD SPECIMEN / Unknown Venipuncture / Unknown 10/15/2021 7:42 PM CDT 10/15/2021 7:51 PM CDT Amira Murdock FINANCIAL RISK MANAGER-CABLE FERRY OPERATOR LAB - COAGULAT ION ORDERABLES Performing Organization Address [facility]/State/[place] Co de Phone Number [facility] [address] [address], [facility] [phone] * XR CHEST 2VW (10/15/2021 6:58 PM CDT) Only the most recent of6 resultswithin the time period is included. Anatomical Region Laterality Modality Chest Radiographic Nick ging 10/15/2021 7:28 PM CDT Impressions 10/15/2021 7:40 PM CDT FINDINGS/IMPRESSION: *There is an IVC filter in place. *Surgical clips are seen in the right upper quadrant. There is no focal consolidation, pleural effusion, or pneumothorax. The cardiomediastinal silhouette is normal. The visible bony thorax is intact. Report dictated by Kvng Guerrero MD (residential remodeling subcontractor). I, Dr. JUNAID CRAVEN MD have personally reviewed and interpreted this examination/study. This report was electronically signed by JUNAID CRAVEN MD on 10/15/2021 7:40 PM . Narrative 10/15/2021 7:40 PM CDT EXAMINATION: XR CHEST 2VW, 10/15/2021 6:58 PM HISTORY: R07.89: Chest pressure COMPARISON: None. Procedure Note Junaid Craven MD - 10/15/2021 EXAMINATION: XR CHEST 2VW, 10/15/2021 6:58 PM HISTORY: R07.89: Chest pressure COMPARISON: None. FINDINGS/IMPRESSION: *There is an IVC filter in place. *Surgical clips are seen in the right upper quadrant. There is no focal consolidation, pleural effusion, or pneumothorax. The cardiomediastinal silhouette is normal. The visible bony thorax is intact. Report dictated by Kvng Guerrero MD (residential remodeling subcontractor). I, Dr. JUNAID CRAVEN MD have personally reviewed and interpreted this examination/study. This report was electronically signed by JUNAID CRAVEN MD on 10/15/2021 7:40 PM . Amira Murdock FINANCIAL RISK MANAGER-CABLE FERRY OPERATOR DIAGNOSTIC NICK GING ORDERABLES * (ABNORMAL) URINALYSIS REFLEX TO MICROSCOPIC NO CULTURE (10/13/2021 6:42 PM CDT) Only the most recent of10 resultswithin the time period is included. Color UA Yellow Straw, Yellow 10/13/2021 7:12 PM T [facility] Clarity UA Clear Clear 10/13/2021 7:12 PM [facility] Specific Llewellyn UA 1.016 1.005 - 1.030 10/13/2021 7:12 PM [facility] pH UA 6.0 5.0 - 8.0 pH 10/13/2021 7:12 PM [facility] Protein UA Negative Negative 10/13/2021 7:12 PM [facility] Glucose UA Negative Negative 10/13/2021 7:12 PM [facility] Ketone UA Negative Negative 10/13/2021 7:12 PM [facility] Bilirubin UA Negative Negative 10/13/2021 7:12 PM [facility] Blood UA 2+(A) Negative 10/13/2021 7:12 PM [facility] Nitrite UA Negative Negative 10/13/2021 7:12 PM [facility] Leukocyte Esterase Negative Negative 10/13/2021 7:12 PM [facility] Urobilinogen UA Negative Negative mg/dL 10/13/2021 7:12 PM [facility] RBC UA 3-5 None Seen, 0-2, 3-5 /HPF 10/13/2021 7:12 PM [facility] WBC UA 6-10(A) None Seen, 0-5 /HPF 10/13/2021 7:12 PM [facility] Bacteria UA Trace(A) None /HPF 10/13/2021 7:12 PM CDT [facility] Squamous Epithelial Cells UA 0-2 None Seen, 0-2, 3-5 /HPF 10/13/2021 7:12 PM CDT [facility] Mucus UA 1+ /LPF 10/13/2021 7:12 PM CDT [facility] Urine URINE SPECIMEN OBTAINED BY CLEAN CATCH PROCEDURE / Unknown Collection / Unknown 10/13/2021 6:42 PM CDT 10/13/2021 6:51 PM CDT Narrative [facility] - 10/13/2021 7:12 PM CDT Caitlin Jaime PA-C LAB - URINALYSIS ORD ERABLES [facility] [address] [place] [address], [facility] [phone] * MD SONO EXAM, TRANSVAGINAL (09/23/2021 11:54 AM CDT) Narrative Renae Devine - 09/23/2021 11:54 AM CDT Renae Devine 09/23/2021 11:55 AM Documentation in digisonics Kimberly Balbuena MD PROCEDURE/SD NOR SURGICAL ORDERABLES * IMAGING RADIOLOGY XRAY RESULTS ORDER (09/23/2021) Only the most recent of25 resultswithin the time period is included. Anatomical Region Laterality Modality Other Narrative 09/23/2021 Ordered by an unspecified provider. Scanned Document IMAGING * (ABNORMAL) JEAN-PAUL SCREEN IFA+LUPUS PANEL (09/13/2021 8:31 AM CDT) Pathologist [facility] JEAN-PAUL Screen POSITIVE( A) NEGATIVE [facility] Comment: JEAN-PAUL IFA is a first line screen for detecting the presence of up to approximately 150 autoantibodies in various autoimmune diseases. A positive JEAN-PAUL IFA result is suggestive of autoimmune disease and reflexes to titer and pattern. Further laboratory testing may be considered if clinically indicated. For additional information, please refer to http://education.Sravnikupi/faq/YNL719 (This link is being provided for informational/ educational purposes only.) Test Performed at: [facility] [address] [place] [address] WESLEY ARAUJO DO,MPH Blood BLOOD SPECIMEN / Unknown 09/13/2021 8:31 AM CDT 09/13/2021 8:32 AM CDT Bob Varma MD LAB - SEROLOGY ORDER HEATHER Performing Organization Address [facility]/[place] Co de Phone Number [facility] [phone] [place] [phone] * (ABNORMAL) CHROMATIN ANTIBODY (09/13/2021 8:31 AM CDT) Only the most recent of5 resultswithin the time period is included. Chromatin Nucleosomal Antibody >8.0 POS(A) <1.0 NEG AI [facility] Comment: Test Performed at: [facility] [address] WESLEY ARAUJO DO,MPH 09/13/2021 8:31 AM CDT 09/13/2021 8:32 AM CDT Bob Varma MD LAB - SEROLOGY ORDER HEATHER Performing Organization Address [facility]/[place] Co de Phone Number [facility] [phone] [place] [address] * ROGERS (SM) ANTIBODY KARTHIKEYAN (09/13/2021 8:31 AM CDT) Only the most recent of6 resultswithin the time period is included. SM Antibody <1.0 NEG <1.0 NEG AI [facility] Comment: Test Performed at: [facility] [address] WESLEY ARAUJO DO,MPH 09/13/2021 8:31 AM CDT 09/13/2021 8:32 AM CDT Bob Varma MD LAB - CHEMISTRY TOSHIA POPE Performing Organization Address [facility]/[place] Co de Phone Number [facility] [address] [place] [address] * (ABNORMAL) JEAN-PAUL BLOOD TITER (09/13/2021 8:31 AM CDT) Only the most recent of6 resultswithin the time period is included. JEAN-PAUL 1:1280(H) titer [facility] Comment: Reference Range <1:40 Negative 1:40-1:80 Low Antibody Level >1:80 Elevated Antibody Level JEAN-PAUL Pattern Nuclear, Speckled( A) [facility] Comment: Speckled pattern is associated with mixed connective tissue disease (MCTD), systemic lupus erythematosus (SLE), Sjogren's syndrome, dermatomyositis, and systemic sclerosis/polymyositis overlap. AC-2,4,5,29: Speckled International Consensus on JEAN-PAUL Patterns (https://doi.org/10.1515/mqnt-3492-3419) Test Performed at: [facility] [address] [facility] [place] [address] WESLEY ARAUJO DO,MPH 09/13/2021 8:31 AM CDT 09/13/2021 8:32 AM CDT Bob Varma MD LAB - CHEMISTRY TOSHIA POPE Performing Organization Address [facility]/[place] Co de Phone Number [employer] [address] [place] [address] * (ABNORMAL) IMMUNOGLOBULINS IGG/IGM/IGA PANEL (09/13/2021 8:31 AM CDT) IgA 537(H) 47 - 310 mg/dL [facility] IgG 1564 600 - 1640 mg/dL [facility] IgM 91 50 - 300 mg/dL [facility] Comment: Test Performed at: [facility] [address] [place] [address] WESLEY ARAUJO DO,MPH Blood BLOOD SPECIMEN / Unknown 09/13/2021 8:31 AM CDT 09/13/2021 8:32 AM CDT Bob Varma MD LAB - CHEMISTRY TOSHIA POPE Performing Organization Address [facility]/[place] Co de Phone Number [employer] [address] [place] [address] * CT ANGIO CHEST PULM EMBOLISM (07/24/2021 5:08 PM CDT) Only the most recent of3 resultswithin the time period is included. Anatomical Region Laterality Modality Chest Computed Tomogra phy 07/24/2021 5:10 PM CDT Impressions 07/25/2021 8:34 AM CDT Impression: 1.No evidence of acute pulmonary embolism. 2.Trace pericardial effusion. Report drafted by Otf Medina (resident) Dr. Kvgn Gregg M.D. have personally reviewed and interpreted this examination/study. This report was electronically signed by Kvng PAREKH M.D. on 07/25/2021 8:34 AM . Narrative 07/25/2021 8:34 AM CDT Procedure Information DATE: 07/24/2021 5:09 PM EXAMINATION: Computed tomography (CT) of the chest with contrast TECHNIQUE: CT of the chest was performed following the uneventful administration of 75 mL of Isovue 370 intravenous contrast according to a pulmonary embolism protocol. Multiplanar reconstructions were created. Clinical Information HISTORY: R07.9: Chest pain, unspecified type Z86.2: History of lupus anticoagulant disorder Z86.711: History of pulmonary embolism COMPARISON: CT chest 07/22/2021 Findings Study Quality This examination for the diagnosis of pulmonary embolism is: adequate. Lines/Tubes: None. Pulmonary Vessels: No evidence of pulmonary embolism is seen. Lower neck and axillae: The thyroid enhances homogeneously. Prominent lymph nodes are seen in the left greater than right axilla, largest measuring approximately 1 cm in short axis (series 5 image 51), nonspecific. Mediastinum and Alexandra: No enlarged lymph nodes are present. Heart and Pericardium: The cardiac chambers are normal in size. Trace pericardial effusion is present. Lung Parenchyma, Airways, and Pleural Spaces: No pulmonary parenchymal or airway process is present. Minimal streaky atelectasis in the bilateral lung bases. 3 mm pulmonary nodules are seen along the left major fissure (image 30, series 6 and along the right major fissure (image 35 and 37, series 6) likely representing perifissural nodules. There is no pleural effusion or pneumothorax. Bones and Soft Tissue: The visible osseous structures are intact. Upper Abdomen: The gallbladder is surgically absent. Otherwise, the visible upper abdominal viscera are unremarkable. Procedure Note Katty Parekh MD - 07/25/2021 Procedure Information DATE: 07/24/2021 5:09 PM EXAMINATION: Computed tomography (CT) of the chest with contrast TECHNIQUE: CT of the chest was performed following the uneventful administration of 75 mL of Isovue 370 intravenous contrast according to a pulmonaryembolism protocol. Multiplanar reconstructions were created. Clinical Information HISTORY: R07.9: Chest pain, unspecified type Z86.2: History of lupus anticoagulant disorder Z86.711: History of pulmonary embolism COMPARISON: CT chest 07/22/2021 Findings Study Quality This examination for the diagnosis of pulmonary embolism is: adequate. Lines/Tubes: None. Pulmonary Vessels: No evidence of pulmonary embolism is seen. Lower neck and axillae: The thyroid enhances homogeneously. Prominent lymph nodes are seen inthe left greater than right axilla, largest measuring approximately 1 cm in short axis (series 5 image 51), nonspecific. Mediastinum and Alexandra: No enlarged lymph nodes are present. Heart and Pericardium: The cardiac chambers are normal in size. Trace pericardial effusion is present. Lung Parenchyma, Airways, and Pleural Spaces: No pulmonary parenchymal or airway process is present. Minimal streaky atelectasis in the bilateral lung bases. 3 mm pulmonary nodules are seen along the left major fissure (image 30, series 6 and along the rightmajor fissure (image 35 and 37, series 6) likely representing perifissural nodules. There is no pleural effusion or pneumothorax. Bones and Soft Tissue: The visible osseous structures are intact. Upper Abdomen: The gallbladder is surgically absent. Otherwise, the visible upper abdominal viscera are unremarkable. Impression: 1.No evidence of acute pulmonary embolism. 2.Trace pericardial effusion. Report drafted by Otf Medina (resident) Dr. Kvng Gregg M.D. have personally reviewed and interpretedthis examination/study. This report was electronically signed by Kvng PRAEKH M.D. on 07/25/2021 8:34 AM . Cait Denise MD CT ORDERABLES * THIOPURINE METHYLTRANSFERASE (07/13/2021 2:22 PM CDT) Only the most recent of2 resultswithin the time period is included. TPMT Activity 16 nmol/hr/mL RBC [facility] Comment: Reference Range for TPMT Activity: >12 Normal 4-12 Heterozygote or low metabolizer <4 Homozygote Deficient Range This test was developed and its analytical performance characteristics have been determined by [facility]. It has not been cleared or approved by FDA. This assay has been validated pursuant to the CLIA regulations and is used for clinical purposes. REPORT COMMENT: COLLECTION KIT GIVEN TO PATIENT. PATIENT ADVISED TO RETURN. Test Performed at: [facility] [address] [place] [address] MARIO IZQUIERDO MD,PHD,JASON Blood BLOOD SPECIMEN / Unknown 07/13/2021 2:22 PM CDT 07/13/2021 2:24 PM CDT Bob Varma MD LAB - CHEMISTRY TOSHIA POPE Performing Organization Address [facility]/[place] Co de Phone Number [facility] [address] [place] [address] * PROTEIN ELECTROPHORESIS BLOOD (07/13/2021 2:22 PM CDT) Protein Total 7.9 6.1 - 8.1 g/dL [facility] Albumin 4.3 3.8 - 4.8 g/dL [facility] Alpha-1 Globulin 0.3 0.2 - 0.3 g/dL [facility] Askck-3-Sncvqbcd 0.9 0.5 - 0.9 g/dL [facility] Beta-1 Globulin g/dL 0.5 0.4 - 0.6 g/dL [facility] Beta-2 Globulin 0.5 0.2 - 0.5 g/dL [facility] Gamma Globulin 1.4 0.8 - 1.7 g/dL [facility] Abnormal Protein Band [facility] Abnormal Protein Band 2 [facility] Abnormal Protein Band 3 [facility] Interpretation [facility] Comment: No restricted band (M-spike) seen. Test Performed at: [facility] [address] [place] [address] WESLEY ARAUJO DO,MPH Blood BLOOD SPECIMEN / Unknown 07/13/2021 2:22 PM CDT 07/13/2021 2:24 PM CDT Bob Varma MD LAB - CHEMISTRY TOSHIA POPE Performing Organization Address [facility]/[place] Co de Phone Number [facility] [address] [place] [address] * IGM BLOOD (07/13/2021 2:22 PM CDT) IgM 85 50 - 300 mg/dL [facility] Comment: REPORT COMMENT: COLLECTION KIT GIVEN TO PATIENT. PATIENT ADVISED TO RETURN. Test Performed at: [facility] [place] [address] WESLEY ARAUJO DO,MPH Blood BLOOD SPECIMEN / Unknown 07/13/2021 2:22 PM CDT 07/13/2021 2:24 PM CDT Bob Varma MD LAB - CHEMISTRY TOSHIA POPE Performing Organization Address City/[facility]/ZIP Co de Phone Number [facility] [address] [place] [address] * IGG BLOOD (07/13/2021 2:22 PM CDT) Pathologist [facility] IgG 1485 600 - 1640 mg/dL [facility] Comment: Test Performed at: [facility] [place] [address] WESLEY ARAUJO DO,MPH Blood BLOOD SPECIMEN / Unknown 07/13/2021 2:22 PM CDT 07/13/2021 2:24 PM CDT Bob Varma MD LAB - CHEMISTRY TOSHIA POPE Performing Organization Address City/[facility]/[place] Co de Phone Number [facility] [address] [place] [address] * (ABNORMAL) IGA BLOOD (07/13/2021 2:22 PM CDT) IgA 489(H) 47 - 310 mg/dL [facility] Comment: Test Performed at: [facility] [place] [address] WESLEY ARAUJO DO,MPH Blood BLOOD SPECIMEN / Unknown 07/13/2021 2:22 PM CDT 07/13/2021 2:24 PM CDT Bob Varma MD LAB - CHEMISTRY TOSHIA POPE Performing Organization Address City/[facility]/ZIP Co de Phone Number [facility] [address] [place] [address] * PTT (07/12/2021 9:58 AM CDT) Pathologist [facility] PTT 28 23 - 32 sec [facility] Comment: This test has not been validated for monitoring unfractionated heparin therapy. For testing that is validated for this type of therapy, please refer to the Heparin Anti-Xa assay (test code 62978). For additional information, please refer to http://education.Sravnikupi/faq/SFA592 (This link is being provided for informational/educational purposes only.) Test Performed at: [facility] [address] LUNA BARRAZA MD 07/12/2021 9:58 AM CDT 07/12/2021 9:58 AM CDT Isa Rutledge MD LAB - COAGULATION O RDERABLES [address] [address] * HEPATIC FUNCTION PANEL (07/12/2021 9:58 AM CDT) Only the most recent of32 resultswithin the time period is included. Pathologist [facility] Protein Total 7.7 6.1 - 8.1 g/dL [facility] Albumin 4.3 3.6 - 5.1 g/dL [facility] Globulin Total 3.4 1.9 - 3.7 g/dL (calc) [facility] Albumin/Globulin Ratio 1.3 1.0 - 2.5 (calc) [facility] Bilirubin Total 0.3 0.2 - 1.2 mg/dL [facility] Bilirubin Direct 0.1 < OR = 0.2 mg/dL [facility] Bilirubin Indirect 0.2 0.2 - 1.2 mg/dL (calc) [facility] Alkaline Phosphatase 77 31 - 125 U/L [facility] AST 17 10 - 30 U/L [facility] ALT 11 6 - 29 U/L [facility] Comment: Test Performed at: [facility] [place] [address] [place] [address] WESLEY ARAUJO DO,MPH 07/12/2021 9:58 AM CDT 07/12/2021 9:58 AM CDT Isa Rutledge MD LAB - CHEMISTRY ORD ERABLES [facility] [address] [place] [address] * (ABNORMAL) CBC W/O DIFFERENTIAL (12/07/2020 9:44 AM CDT) Only the most recent of48 resultswithin the time period is included. WBC 6.8 4.4 - 10.7 x10E9/L 12/07/2020 10:17 AM CDT [facility] RBC 3.08(L) 3.80 - 5.20 x10E12/L 12/07/2020 10:17 AM CDT [facility] Hemoglobin 8.8(L) 12.0 - 15.6 gm/dL 12/07/2020 10:17 AM CDT [facility] Hematocrit 26.7(L) 35.9 - 45.5 % 12/07/2020 10:17 AM CDT [facility] MCV 86.7 80.7 - 98.3 fl 12/07/2020 10:17 AM CDT [facility] MCH 28.6 26.7 - 34.0 pg 12/07/2020 10:17 AM CDT [facility] MCHC 33.0 30.8 - 35.9 gm/dL 12/07/2020 10:17 AM CDT [facility] Platelet Count 206 153 - 416 x10E9/L 12/07/2020 10:17 AM CDT [facility] RDW-CV 19.0(H) 12.1 - 14.9 % 12/07/2020 10:17 AM CDT [facility] MPV 9.2(L) 9.4 - 12.9 fl 12/07/2020 10:17 AM CDT [facility] Blood BLOOD SPECIMEN / Unknown Lab Venipuncture / Unknown 12/07/2020 9:44 AM CDT 12/07/2020 10:06 AM CDT Ricardo Cagle MD LAB - HEMATOLO GY ORDERABLES [facility] [address] [place] [address] * PATHOLOGY TISSUE EXAM (STL) (12/06/2020 1:45 PM CDT) Only the most recent of2 resultswithin the time period is included. Case Report Surgical Pathology Report Case: [id number] Authorizing Provider: Viviana Hinkle MD Collected: 12/06/2020 01:45 PM Ordering Location: [address] Received: 12/07/2020 08:33 AM Pathologist: Isa Dixon MD Specimen: Placenta 3rd Trimester, placenta with numerous calicifications 12/08/2020 3:42 PM CDT [facility] Final Diagnosis Placenta, delivery - Large, mature placenta (weight >90th percentile for gestational age) - Increased perivillous fibrin deposition with associated placental infarction and focal calcifications (<10% of disc volume) - membranes with no histopathologic abnormality - Three-vessel umbilical cord with no histopathologic abnormality 12/08/2020 3:42 PM CDT [facility] Clinical History The patient is a 30-year-old woman at 37 weeks, 1 day gestation, with decreased movement and history of lupus. Operative procedure: section. 12/08/2020 3:42 PM CDT [facility] Gross Description The requisition and specimen are identified with the patient's name, Thalia Sam Received in formalin, specimen placenta with numerous calcifications is a 674.3 gram corado, discoid shaped placenta measuring 16.2 x 15.5 x 3.2 cm with a white conte umbilical cord 14.2 cm in length and 1.2 in diameter that inserts paracentrally 4.4 cm from closest margin. The umbilical cord is trivascular, appropriately coiled, and without gross abnormalities. The brown conte membranes insert marginally. The surface is brown conte, and the maternal surface is brown conte with intact cotyledons. The parenchyma is red conte and with interspersed white conte lesions throughout the specimen (<10% of total placental volume) predominantly on half. Consultant Internship sections submitted as follows: A1 - umbilical cord and membranes; A2-3 placenta. /DJS 12/08/2020 3:42 PM CDT [facility] Microscopic Description Microscopic examination substantiates the above diagnosis. 12/08/2020 3:42 PM CDT [facility] Disclaimer All histochemical and/or immunohistochemical results are interpreted with controls that demonstrate appropriate staining reactions before reporting results. Note on use of immunocytochemistry reagents: This test was developed and its performance characteristic determined by [facility], Department of Laboratory Medicine. It has not been cleared or approved by the U.S. Food and Drug Administration (FDA). The FDA has determined that such clearance or approval is not necessary. The test is used for clinical purpose. It should not be regarded as investigational or for research. This laboratory is certified to perform high complexity testing. The performance characteristics of the IHC/YNES assays have been validated on formalin-fixed paraffin embedded tissues only. The assays have not been validated on decalcified tissues. Results should be interpreted with caution. 12/08/2020 3:42 PM CDT [facility] Embedded Images 12/08/2020 3:42 PM CDT [facility] Pathology/Cytolo gy ENTIRE PLACENTA / Unknown 12/06/2020 1:45 PM CDT 12/07/2020 8:33 AM CDT Viviana Hinkle MD LAB - PATHOLOGY/CYTO LOGY ORDERABLES [facility] [address], [place] [id number] * (ABNORMAL) BLOOD GASES CORD SEVERIANO (12/06/2020 1:43 PM CDT) pH Cord Venous 7.29 7.28 - 7.40 pH 12/06/2020 1:46 PM CDT [facility] pCO2 Cord Venous 44 35 - 45 mm hg 12/06/2020 1:46 PM CDT [facility] pO2 Cord Venous 20(L) 22 - 33 mm hg 12/06/2020 1:46 PM CDT [facility] HCO3 Cord Venous 21(L) 22 - 24 mmol/L 12/06/2020 1:46 PM CDT [facility] BE Cord Venous -5.3 mmol/L 12/06/2020 1:46 PM CDT [facility] O2 Saturation Cord Venous 44 % 12/06/2020 1:46 PM CDT [facility] Sample Site [facility] 12/06/2020 1:46 PM CDT [facility] Denial Resolution Specialist ID Bulmaro hernandez 12/06/2020 1:46 PM CDT [facility] Blood CORD BLOOD SPECIMEN / Unknown 12/06/2020 1:43 PM CDT 12/06/2020 1:43 PM CDT Viviana Hinkle MD LAB - BLOOD GASES OR DERABLES Performing Organization Address [facility] Co de Phone Number [facility] [address] [place] [address] * (ABNORMAL) BLOOD GASES CORD ARTERIAL (12/06/2020 1:43 PM CDT) pH Cord Arterial 7.17(L) 7.20 - 7.34 pH 12/06/2020 1:48 PM CDT [facility] pCO2 Cord Arterial 59(H) 45 - 55 mm hg 12/06/2020 1:48 PM CDT [facility] pO2 Cord Arterial 13 12 - 25 mm hg 12/06/2020 1:48 PM CDT [facility] HCO3 Cord Arterial 21.5(L) 22.0 - 24.0 mmol/L 12/06/2020 1:48 PM CDT [facility]AP[facility] BE Cord Arterial -7.7 mmol/L 12/06/2020 1:48 PM CDT [facility] O2 Saturation Cord Arterial 23 % 12/06/2020 1:48 PM CDT [facility] Sample Site [facility] 12/06/2020 1:48 PM CDT [facility] Denial Resolution Specialist ID Bulmaro hernandez 12/06/2020 1:48 PM CDT [facility] Blood, arterial CORD BLOOD SPECIMEN / Unknown 12/06/2020 1:43 PM CDT 12/06/2020 1:43 PM CDT Viviana Hinkle MD LAB - BLOOD GASES OR DERABLES Performing Organization Address [facility]/ZIP Co de Phone Number [facility] [address] [place] [address] * Neuraxial Block (12/06/2020 1:02 PM CDT) Narrative Jacinda Lerma APRN-CRNA - 12/06/2020 1:02 PM CDT Jacinda Lrema APRN-CRNA 12/06/2020 1:14 PM Neuraxial Block Note Pre-Procedure: Procedure Name: Neuraxial Block Patient Location: OB Indications: surgical anesthesia Pre-Anesthetic Checklist: Patient identified, IV Checked, Risks and benefits discussed, Surgical consent verified, Monitors and equipment, Site examined, Pre-op evaluation done, Time-out performed, Informed consent obtained, Questions answered/anesthesia questions answered and Allergies reviewed Anticoagulation/ Anti-thrombosis status confirmed? Yes Supplemental O2: room air Monitors: continuous pluse ox and BP Patient Condition: awake Patient Sedated? No Procedure: Block Type: Spinal Prep: Betadine Sterile Field: mask, cap/hat, sterile established and sterile gloves Approach: midline Skin was localized? Yes Skin localized with: lidocaine (XYLOCAINE) 1 % injection, 1 mL Spinal Block: Needle Type: spinal needle Needle Gauge: 25 Needle Length: 90 mm Placement Site: L4-5 Number of Attempts: 1 CSF: free flow, aspiration before injection, aspiration during injection, aspiration after injection Local anesthetics used? Yes Spinal local anesthetics/Additives: bupivacaine 0.75 % in dextrose (SENSORCAINE) injection, 13.5 mg (5mcg precedex intrathecal with spinal) Degree of difficulty: none Procedure Tolerance: tolerated well Sensory Level: T4 Motor Blockade: Yes Position post procedure: left uterine displacement Vital Signs: Vital signs monitored and stable throughout. See anesthesia record for details. Staff: Anesthesia Provider: Jacinda Lerma APRN-CRNA - performed the procedure Provider #1: Darby Elliott MD Darby Elliott MD GENERAL ANESTHESIA O RDERABLES * US ABDOMEN LIMITED (12/06/2020 11:27 AM CDT) Only the most recent of4 resultswithin the time period is included. Anatomical Region Laterality Modality Abdomen Ultrasound 12/06/2020 11:5 4 AM CDT Impressions 12/06/2020 11:58 AM CDT 1. Cholecystectomy. No biliary dilatation. 2. Mild right hydronephrosis. This might be physiologic from *Reading Radiologist: Lorrie Roy on 12/06/2020 at 11:58 AM Narrative 12/06/2020 11:58 AM CDT Abdominal ultrasound, limited DATE: 12/06/2020. INDICATION: Nausea and vomiting, third trimester . History of cholecystectomy and partial pancreectomy. COMPARISONS: Abdominal ultrasound from 10/28/2011. FINDINGS: The liver has normal size and echogenicity measuring up to 14.2 cm. No mass or cyst. The gallbladder is absent. The common duct measures 3 to 4 mm which is normal. The main portal and hepatic veins are patent. The pancreas is not well seen. The right kidney measures 12.1 x 6.1 x 5.8 cm. The collecting system is mildly dilated which could be physiologic from . No shadowing stone. Procedure Note Lorrie Roy MD - 12/06/2020 Abdominal ultrasound, limited DATE: 12/06/2020. INDICATION: Nausea and vomiting, third trimester . History of cholecystectomy and partial pancreectomy. COMPARISONS: Abdominal ultrasound from 10/28/2011. FINDINGS: The liver has normal size and echogenicity measuring up to 14.2 cm. No mass or cyst. The gallbladder is absent. The common duct measures 3 to 4 mm which is normal. The main portal and hepatic veins are patent. The pancreas is not well seen. The right kidney measures 12.1 x 6.1 x 5.8 cm. The collecting system is mildly dilated which could be physiologic from . No shadowing stone. IMPRESSION 1. Cholecystectomy. No biliary dilatation. 2. Mild right hydronephrosis. This might be physiologic from *Reading Radiologist: Lorrie Roy on 12/06/2020 at 11:58 AM Ricardo Cagle MD ORDERABLES * PROTEIN URINE QUALITATIVE AUTO (12/06/2020 11:14 AM CDT) Protein UA Negative Negative 12/06/2020 11:44 AM CDT [facility] Urine URINE / Unknown Collection / Unknown 12/06/2020 11:14 AM CDT 12/06/2020 11:20 AM CDT Narrative [facility] - 12/06/2020 11:44 AM CDT Ricardo Cagle MD LAB - URINALYS IS ORDERABLES [facility] [address] [place] [address] * (ABNORMAL) KETONES QUALITATIVE URINE AUTO (12/06/2020 11:14 AM CDT) Ketone UA Trace(A) Negative 12/06/2020 11:44 AM CDT [facility] Urine URINE / Unknown Collection / Unknown 12/06/2020 11:14 AM CDT 12/06/2020 11:20 AM CDT Narrative [facility] - 12/06/2020 11:44 AM CDT Ricardo Cagle MD LAB - URINALYS IS ORDERABLES Performing Organization Address [facility] Co de Phone Number [facility] [address] [place] [address] * US RETROPERITONEAL COMPLETE (12/06/2020 11:00 AM CDT) Anatomical Region Laterality Modality Abdomen Ultrasound 12/06/2020 11:5 8 AM CDT Impressions 12/06/2020 12:01 PM CDT 1. Right hydronephrosis. This might be physiologic from . 2. Unremarkable left kidney *Reading Radiologist: Lorrie Roy on 12/06/2020 at 12:01 PM Narrative 12/06/2020 12:01 PM CDT Renal ultrasound, complete DATE: 12/06/2020. INDICATION: Back pain, 37 weeks COMPARISONS: Abdominal ultrasound from 2011. FINDINGS: The right kidney measures 12.0 x 7.5 x 5.7 cm. There is moderate dilatation of the renal collecting system and renal pelvis indicating hydronephrosis. No visible stone or mass. There is a possible simple midpole cyst measuring 1.6 x 1.2 cm although this could also be a portion of the collecting system. The left kidney measures 12.3 x 6.2 x 5.7 cm and has normal cortical thickness and echogenicity. There are several simple cysts measuring up to 1.2 cm. The urinary bladder is anechoic and partially obscured due to the . Procedure Note Lorrie Roy MD - 12/06/2020 Renal ultrasound, complete DATE: 12/06/2020. INDICATION: Back pain, 37 weeks COMPARISONS: Abdominal ultrasound from 2012. FINDINGS: The right kidney measures 12.0 x 7.5 x 5.7 cm. There is moderate dilatation of the renal collecting system and renal pelvis indicating hydronephrosis. No visible stone or mass. There is a possible simple midpole cyst measuring 1.6 x 1.2 cm although this could also be a portion of the collecting system. The left kidney measures 12.3 x 6.2 x 5.7 cm and has normal cortical thickness and echogenicity. There are several simple cysts measuring up to 1.2 cm. The urinary bladder is anechoic and partially obscured due to the . IMPRESSION 1. Right hydronephrosis. This might be physiologic from . 2. Unremarkable left kidney *Reading Radiologist: Lorrie Roy on 12/06/2020 at 12:01 PM Ricardo Cagle MD US ORDERABLES * AMYLASE BLOOD (12/05/2020 10:26 PM CDT) Only the most recent of41 resultswithin the time period is included. Amylase 60 25 - 125 U/L 12/06/2020 10:49 AM CDT [facility] Blood BLOOD SPECIMEN / Unknown Lab Venipuncture / Unknown 12/05/2020 10:26 PM CDT 12/05/2020 10:31 PM CDT Ricardo Cagle MD LAB - CHEMISTR Y ORDERABLES [facility] [address] [place] [address] * URINE MICROSCOPIC ONLY REFLEX TO CULTURE (12/05/2020 4:39 PM CDT) Only the most recent of6 resultswithin the time period is included. Reflex Status Culture to follow 12/05/2020 5:03 PM CDT [facility] RBC UA None Seen None Seen, 0-2, 3-5 # /hpf 12/05/2020 5:03 PM CDT [facility] WBC UA 0-5 None Seen, 0-5 # /hpf 12/05/2020 5:03 PM CDT [facility] Bacteria UA None Seen None Seen 12/05/2020 5:03 PM CDT [facility] Squamous Epithelial Cells 0-2 None Seen, 0-2, 3-5 /hpf 12/05/2020 5:03 PM CDT [facility] Mucus UA 1+ /LPF 12/05/2020 5:03 PM CDT [facility] Urine URINE SPECIMEN OBTAINED BY CLEAN CATCH PROCEDURE / Unknown Collection / Unknown 12/05/2020 4:39 PM CDT 12/05/2020 4:45 PM CDT Narrative [facility] - 12/05/2020 5:03 PM CDT Ricardo Cagle MD LAB - URINALYS IS ORDERABLES [facility] [address] [place] [address] * (ABNORMAL) URINALYSIS REFLEX MICROSCOPIC REFLEX CULTURE (12/05/2020 4:39 PM CDT) Only the most recent of14 resultswithin the time period is included. Color UA Yellow Straw, Yellow 12/05/2020 4:59 PM CDT [facility] Clarity UA Slt Cloudy(A) Clear 12/05/2020 4:59 PM CDT [facility] Glucose UA Negative Negative 12/05/2020 4:59 PM CDT [facility] Bilirubin UA Negative Negative 12/05/2020 4:59 PM CDT [facility] Ketone UA Negative Negative 12/05/2020 4:59 PM CDT [facility] Specific Llewellyn UA 1.012 1.005 - 1.030 12/05/2020 4:59 PM CDT [facility] Blood UA Negative Negative 12/05/2020 4:59 PM CDT [facility] pH UA 7.0 5.0 - 8.0 pH 12/05/2020 4:59 PM CDT [facility] Protein UA Negative Negative 12/05/2020 4:59 PM CDT [facility] Urobilinogen UA Negative Negative mg/dL 12/05/2020 4:59 PM CDT [facility] Nitrite UA Negative Negative 12/05/2020 4:59 PM CDT [facility] Leukocyte UA Trace(A) Negative 12/05/2020 4:59 PM CDT [facility] Urine Microscopy Urine microscopy to follow 12/05/2020 4:59 PM CDT [facility] Reflex Status Culture to follow 12/05/2020 4:59 PM CDT [facility] Urine URINE SPECIMEN OBTAINED BY CLEAN CATCH PROCEDURE / Unknown Collection / Unknown 12/05/2020 4:39 PM CDT 12/05/2020 4:45 PM CDT Narrative [facility] - 12/05/2020 4:59 PM CDT Ricardo Cagle MD LAB - URINALYS IS ORDERABLES Performing Organization Address City/[facility]/ZIP Co de Phone Number [facility] [address] [place] [address] * CHLAMYDIA + GC AMPLIFIED PROBE (STL) (12/01/2020 12:33 PM CDT) Only the most recent of3 resultswithin the time period is included. Chlamydia Amplified Probe Negative Negative 12/01/2020 8:[address] [facility]CRO[facility] GC Amplified Probe Negative Negative 12/01/2020 8:[address] [facility]CRO[facility] Microbiology ENTIRE VAGINA / Unknown Collection / Unknown 12/01/2020 12:33 PM CDT 12/01/2020 1:[address] [facility]CRO[facility] - 12/01/2020 8:58 PM CDT Results based on detection/no detection of ribosomal RNA by amplified method. Garrick Farley MD LAB - MICROBIOLOGY O RDERABLES [facility]CROBIOLOG[facility] [address] [place] [phone] * TRICHOMONAS RAPID TEST (12/01/2020 12:33 PM CDT) Only the most recent of3 resultswithin the time period is included. Trichomonas Rapid Test Negative Negative 12/01/2020 1:38 PM CDT [facility] Microbiology VAGINAL SWAB / Unknown Collection / Unknown 12/01/2020 12:33 PM CDT 12/01/2020 1:08 PM CDT Garrick Farley MD LAB - MICROBIOLOGY O RDERABLES [facility] [address], [place] [id number] * MD BIOPHYSICAL PROFILE, MD SONO FU OR REPEAT (12/01/2020 9:17 AM CDT) Narrative Neha Atkins - 12/01/2020 9:17 AM CDT Neha Atkins 12/01/2020 9:18 AM Documentation in digisonics. See NST Flowsheet. Oriana Stringer MD PROCEDURE/KARINE R SURGICAL ORDERABLES * URINALYSIS - POINT OF CARE (AMB) [facility] (11/27/2020) Only the most recent of19 resultswithin the time period is included. Specific Llewellyn UA 1.020 pH UA 6 WBC UA n Nitrite UA n Protein UA n Glucose UA n Ketones UA POCT n Urobilinogen UA n Bilirubin UA POCT n Blood Urine POCT n Urine URINE / Unknown 11/27/2020 Garrick Farley MD LAB - POINT OF CARE ORDERABLES * MD OB US, LIMITED, FETUS(S), MD BIOPHYSICAL PROFILE (11/24/2020 9:44 AM CDT) Narrative Neha Atkins - 11/24/2020 9:44 AM CDT Neha Atkins 11/24/2020 9:44 AM Documentation in digisonics. See NST Flowsheet. Oriana Stringer MD PROCEDURE/KARINE R SURGICAL ORDERABLES * NON-STRESS TEST (11/20/2020 8:33 PM CDT) Only the most recent of2 resultswithin the time period is included. Anatomical Region Laterality Modality Other Narrative 11/20/2020 8:33 PM CDT Marlene Bass MD 11/20/2020 9:41 PM Name: Thalia Esposito Date of : 1990 Today's Date: 11/20/2020 34w6d NST RESULTS (CORADO) OBJECTIVE FINDINGS Temp: 98.4 F (36.9 C), Pulse: 89, Resp: 18, BP: 114/56 NST Indication(s): Other (Comment) (N/v) Uterine Irritability: No Contractions: Not present Frequency: None per toco Duration (sec) Range: None per toco OBJECTIVE FINDINGS Movement: Present Monitoring Mode: External Baseline: 125 BPM Variability: Moderate Decelerations: None Accelerations: Yes, Prolonged OTHER INFORMATION Inpatient Interventions: N/A Estephania Manuel RN Non-Stress Test [facility] Patient Name: Thalia Esposito LMP: Patient's last menstrual period was 03/21/2020. Indications: nausea/vomiting NST date: 11/20/2020 NST duration: >20 mins Interpretation: Baseline: 150 beats/minute mod variability Reactive Contractions: none Decelerations: none Impression and Plan: FWB reassuring, continue monitoring as scheduled. Marlene Bass MD 11/20/2020 9:39 PM Cami Mendoza MD [facility] ORD ERABLES * PHOSPHORUS BLOOD (11/20/2020 5:56 PM CDT) Only the most recent of91 resultswithin the time period is included. Phosphorus 4.1 2.3 - 4.7 mg/dL 11/20/2020 6:31 PM CDT [facility] Blood BLOOD SPECIMEN / Unknown Venipuncture / Unknown 11/20/2020 5:56 PM CDT 11/20/2020 6:11 PM CDT Cami Mendoza MD LAB - C HEMISTRY ORDERABLES [facility] [address] [place] [address] * (ABNORMAL) MAGNESIUM BLOOD (11/20/2020 5:56 PM CDT) Only the most recent of97 resultswithin the time period is included. Magnesium 1.5(L) 1.6 - 2.6 mg/dL 11/20/2020 6:31 PM CDT [facility] Blood BLOOD SPECIMEN / Unknown Venipuncture / Unknown 11/20/2020 5:56 PM CDT 11/20/2020 6:11 PM CDT Cami Mendoza MD LAB - C HEMISTRY ORDERABLES [facility] [address] [place] [address] * (ABNORMAL) GLUCOSE - POINT OF CARE (11/20/2020 5:34 PM CDT) Glucose WB/POC 63(L) 70 - 106 mg/dL 11/20/2020 5:41 PM CDT [facility] Specimen Type Venous 11/20/2020 5:41 PM CDT [facility] Blood BLOOD SPECIMEN / Unknown 11/20/2020 5:34 PM CDT 11/20/2020 5:41 PM CDT Cami Mendoza MD LAB - P OINT OF CARE ORDERABLES [facility] [address] [place] [address] * MD OB US, LIMITED, FETUS(S), MD BIOPHYSICAL PROFILE (11/17/2020 9:09 AM CDT) Narrative Renae Devine - 11/17/2020 9:09 AM CDT Renae Devine 11/17/2020 9:09 AM Documentation in digisonics Isa Rutledge MD PROCEDURE/MINOR DORA GICAL ORDERABLES * NONSTRESS TEST (11/15/2020 10:00 PM CDT) Narrative Cami Mendoza MD - 11/15/2020 10:00 PM CDT Trang Leal MD 11/15/2020 11:50 PM Name: Thalia Esposito Date of : 1990 Today's Date: 11/15/2020 34w1d NST RESULTS (CORADO) OBJECTIVE FINDINGS , , , BP: 112/60 NST Indication(s): (WEU visit) Uterine Irritability: No Contractions: Irregular Frequency: 6-7 Duration (sec) Range: 40-120 Perceived Intensity: Mild OBJECTIVE FINDINGS Movement: Present Monitoring Mode: External Baseline: 120 BPM Variability: Moderate Decelerations: None Accelerations: Yes OTHER INFORMATION Familia Dolan RN Non-Stress Test [facility] Patient Name: Thalia Esposito LMP: Patient's last menstrual period was 03/21/2020. Indications: Rule out labor NST date: 11/15/2020 NST duration: >20 mins Interpretation: Baseline: 130 beats/minute moderate variability Reactive Contractions: Irregular, q2-6 minutes Decelerations: One late deceleration at 19:40 Impression and Plan: FWB reassuring, continue monitoring as scheduled. Trang Leal MD 11/15/2020 11:48 PM Garrick Farley MD OB GYNE ORDERABLES * NONSTRESS TEST (11/13/2020 3:38 PM CDT) Narrative Alem Alvarez MD - 11/13/2020 3:38 PM CDT Amira Ventura MD 11/13/2020 10:26 PM Non-Stress Test [facility] Patient Name: Thalia Esposito LMP: Patient's last menstrual period was 03/21/2020. Indications: Other Deceleration on NST NST date: 11/13/2020 NST duration: >20 mins Interpretation: Baseline: 140 beats/minute moderate variability Reactive Contractions: every 2-5 minutes, mild strength Decelerations: variable Impression and Plan: FWB reassuring, continue monitoring as scheduled. Amira Ventura MD 11/13/2020 10:23 PM Name: Thalia Esposito Date of : 1990 Today's Date: 11/13/2020 33w6d NST RESULTS (CORADO) OBJECTIVE FINDINGS , , , BP: 100/53 NST Indication(s): Other (Comment) (HR ) Uterine Irritability: Yes Contractions: Irregular Frequency: 9 Duration (sec) Range: 70 Perceived Intensity: Moderate OBJECTIVE FINDINGS Movement: Present Monitoring Mode: External Baseline: 135 BPM Variability: Moderate Decelerations: None Accelerations: Yes OTHER INFORMATION Luanne Garcia, DANILO Renae Maciel FINANCIAL RISK MANAGER-CABLE FERRY OPERATOR OB GYNE ORDER HEATHER * GLUCOSE PROTEIN KETONE URINE - POINT OF CARE (11/13/2020 10:40 AM CDT) Only the most recent of2 resultswithin the time period is included. Glucose UA n/a Negative [facility] POCT TESTING Protein UA n/a Negative [facility] POCT TESTING Ketone UA neg Negative [facility] POCT TESTING QC Verified Yes Yes [facility] POC T TESTING Urine URINE / Unknown 11/13/2020 1 0:40 AM CDT Alem Alvarez MD LAB - POINT OF CARE ORDERABLES Performing Organization Address [facility] de Phone Number [facility] POCT TESTING [address] [place] [address] * AIMEE DIRECT (11/09/2020 7:15 PM CDT) Only the most recent of4 resultswithin the time period is included. Pathologist [facility] Direct Aimee (BENSON) NEG 11/11/2020 12:14 PM CDT [facility] BLOOD BANK LAB Blood Bank BLOOD SPECIMEN / Unknown Venipuncture / Unknown 11/09/2020 7:15 PM CDT 11/09/2020 7:20 PM CDT Alem Alvarez MD LAB - BLOOD BANK OR DERABLES Performing Organization Address [facility] de Phone Number [facility] BLOOD BANK LAB [address] [place] [address] * ANTIBODY IDENTIFICATION (11/09/2020 7:15 PM CDT) Only the most recent of4 resultswithin the time period is included. Antibody 1 POS, Ab of Undetermined Specificity 11/11/2020 12:13 PM CDT [facility] BLOOD BANK LAB Comment:This is a corrected result. Previous result was POS, Warm Autoantibody on 11/09/2020 at 2040 CDT Antibody 2 POS, Ab of Undetermined Specificity 11/11/2020 12:13 PM CDT [facility] BLOOD BANK LAB Blood Bank BLOOD SPECIMEN / Unknown Venipuncture / Unknown 11/09/2020 7:15 PM CDT 11/09/2020 7:20 PM CDT Alem Alvarez MD LAB - BLOOD BANK OR DERABLES [facility] BLOOD BANK LAB [address] [phone] * (ABNORMAL) DIFFERENTIAL MANUAL (11/09/2020 7:15 PM CDT) Only the most recent of8 resultswithin the time period is included. WBC Auto 7.2 x10E9/L 11/09/2020 8:00 PM CDT [facility] WBC Corrected 11/09/2020 8:00 PM CDT [facility] nRBC 11/09/2020 8:00 PM CDT [facility] Neutrophil % Manual 70 44 - 73 % 11/09/2020 8:00 PM CDT [facility] Lymphocytes % Manual 11(L) 20 - 43 % 11/09/2020 8:00 PM CDT [facility] Monocytes % Manual 6 5 - 13 % 2020 8:00 PM CDT [facility] Eosinophils % Manual 1 0 - 6 % 11/09/2020 8:00 PM CDT [facility] Basophils % Manual 1 0 - 2 % 2020 8:00 PM CDT [facility] Neutrophils Absolute Manual 5.54 2.01 - 7.14 x10E9/L 11/09/2020 8:00 PM CDT [facility] Lymphocytes Absolute Manual 0.79(L) 1.07 - 3.94 x10E9/L 11/09/2020 8:00 PM CDT [facility] Monocytes Absolute Manual 0.43 0.26 - 1.07 x10E9/L 11/09/2020 8:00 PM CDT [facility] Eosinophils Absolute Manual 0.07 0.00 - 0.47 x10E9/L 11/09/2020 8:00 PM CDT [facility] Basophils Absolute Manual 0.07 0.00 - 0.08 x10E9/L 11/09/2020 8:00 PM CDT [facility] Metamyelocytes Absolute Manual 0.07(H) <=0.00 x10E9/L 11/09/2020 8:00 PM CDT [facility] Myelocytes Absolute Manual 0.07(H) <=0.00 x10E9/L 11/09/2020 8:00 PM CDT [facility] Atypical Lymphocytes Absolute Manual 0.14(H) <=0.00 x10E9/L 11/09/2020 8:00 PM CDT [facility] Band % Manual 7 0 - 11 % 11/09/2020 8:00 PM CDT [facility] [place] Manual 1(H) <=0 % 11/09/2020 8:00 PM CDT [facility] Myelocytes % Manual 1(H) <=0 % 11/09/2020 8:00 PM CDT [facility] Atypical Lymphocyte % Manual 2(H) <=0 % 11/09/2020 8:00 PM CDT [facility] Cells Counted 100 # cells 11/09/2020 8:00 PM CDT [facility] RBC Morphology Normal 11/09/2020 8:00 PM CDT [facility] WBC Morph Normal 11/09/2020 8:00 PM CDT [facility] Platelet Estimation Normal 11/09/2020 8:00 PM CDT [facility] Blood BLOOD SPECIMEN / Unknown Venipuncture / Unknown 11/09/2020 7:15 PM CDT 11/09/2020 7:20 PM CDT Alem Alvarez MD LAB - HEMATOLOGY OR DERABLES [facility] [address] [place] [address] * NONSTRESS TEST (11/03/2020 4:21 PM CDT) Narrative Handy Esquivel MD - 11/03/2020 4:21 PM CDT Marlene Bass MD 11/04/2020 8:10 AM Name: Thalia Esposito Date of : 1990 Today's Date: 11/03/2020 32w3d NST RESULTS (CORADO) OBJECTIVE FINDINGS , , , BP: 107/59 NST Indication(s): labor Uterine Irritability: Yes Contractions: Irregular Frequency: 3-6 Duration (sec) Range: 60-90 Perceived Intensity: Mild OBJECTIVE FINDINGS Movement: Present Monitoring Mode: External Baseline: 135 BPM Variability: Moderate Decelerations: None Accelerations: Yes OTHER INFORMATION Keli Reyes RN Non-Stress Test [facility] Patient Name: Thalia Esposito LMP: Patient's last menstrual period was 03/21/2020. Indications: Rule out labor NST date: 11/03/2020 NST duration: >20 mins Interpretation: Baseline: 141 beats/minute mod variability Reactive Contractions: every 2-5 minutes Decelerations: none Impression and Plan: FWB reassuring, continue monitoring as scheduled. Marlene Bass MD 11/04/2020 8:08 AM Alem Alvarez MD OB GYNE ORDERABLES * MD BIOPHYSICAL PROFILE, MD SONO FU OR REPEAT (11/03/2020 9:17 AM CDT) Narrative Neha Atkins - 11/03/2020 9:17 AM CDT Neha Atkins 11/03/2020 9:17 AM Documentation in digisonics. See NST Flowsheet. Oriana Stringer MD PROCEDURE/KARINE R SURGICAL ORDERABLES * NONSTRESS TEST (10/30/2020 1:34 AM CDT) Narrative Handy Esquivel MD - 10/30/2020 1:34 AM CDT Marisol Barlow MD 10/30/2020 4:51 AM Name: Thalia Esposito Date of : 1990 Today's Date: 10/30/2020 31w6d NST RESULTS ([place]) OBJECTIVE FINDINGS , , Resp: 18, BP: 119/74 NST Indication(s): (dizziness, cramps) Uterine Irritability: No Contractions: Not present OBJECTIVE FINDINGS Movement: Present Monitoring Mode: External Baseline: 135 BPM Variability: Moderate Decelerations: None Accelerations: Yes OTHER INFORMATION PGY1 Addendum Non-Stress Test [facility] Patient Name: Thalia Esposito LMP: Patient's last menstrual period was 03/21/2020. Indications: dizziness NST date: 10/30/2020 NST duration: >20 mins Interpretation: Baseline: 130 beats/minute moderate variability Reactive Contractions: rare Decelerations: none Impression and Plan: FWB reassuring, continue monitoring as scheduled. Marisol Barlow MD 10/30/2020 4:49 AM Handy Esquivel MD OB GYNE ORDERABLES * NONSTRESS TEST (10/24/2020 6:17 PM CDT) Narrative Handy Esquivel MD - 10/24/2020 6:17 PM CDT Trang Leal MD 10/25/2020 8:33 PM Name: Thalia Esposito Date of : 1990 Today's Date: 10/24/2020 31w0d NST RESULTS ([place]) OBJECTIVE FINDINGS Temp: 98.5 F (36.9 C), , Resp: 20, BP: 125/61 NST Indication(s): Other (Comment) (pelvic pain) Uterine Irritability: Yes Contractions: Not present OBJECTIVE FINDINGS Movement: Present Monitoring Mode: External Baseline: 135 BPM Variability: Moderate Decelerations: None Accelerations: Yes OTHER INFORMATION Josselin Treviño RN Non-Stress Test [facility] Patient Name: Thalia Esposito LMP: Patient's last menstrual period was 03/21/2020. Indications: Other r/o PTL in the setting of abdominal pain NST date: 10/24/2020 NST duration: >20 mins Interpretation: Baseline: 135 beats/minute moderate variability Reactive Contractions: none Decelerations: variable Impression and Plan: FWB reassuring, continue monitoring as scheduled. Trang Leal MD 10/25/2020 8:31 PM Garrick Farley MD OB GYNE ORDERABLES * MD SONO FU OR REPEAT (10/09/2020 4:16 PM CDT) Narrative Dina Dockery, RDWI - 10/09/2020 4:16 PM CDT Dina Dockery, RDMS 10/09/2020 4:16 PM Documentation in digisonics. Isa Rutledge MD PROCEDURE/MINOR DORA GICAL ORDERABLES * HEPATITIS C AB W/RFLX TO HCV RNA QN PCR (10/09/2020) Only the most recent of2 resultswithin the time period is included. Hepatitis C Antibody NON-REACTI VE NON-REACT JAVAD [facility] Signal to Cut-Off 0.02 <1.00 [facility] Comment: HCV antibody was non-reactive. There is no laboratory evidence of HCV infection. In most cases, no further action is required. However, if recent HCV exposure is suspected, a test for HCV RNA (test code 91793) is suggested. For additional information please refer to http://education.Fast Society/faq/AXU30h9 (This link is being provided for informational/ educational purposes only.) REPORT COMMENT: FASTING:NO Test Performed at: [facility] [address] [place] [address] WESLEY ARAUJO DO,MPH Blood BLOOD SPECIMEN / Unknown 10/09/2020 10/09/2020 2:07 PM CDT Isa Rutledge MD LAB - CHEMISTRY ORD ERABLES Performing Organization Address City/State/[place] Co de Phone Number [facility] [address] [place] [address] * HIV-1 HIV-2 ANTIBODY + HIV P24 AG PANEL (10/09/2020) Only the most recent of2 resultswithin the time period is included. HIV Screen 4th Generation w Reflex NON-REACT JAVAD NON-REACT JAVAD [facility] Comment: HIV-1 antigen and HIV-1/HIV-2 antibodies were not detected. There is no laboratory evidence of HIV infection. PLEASE NOTE: This information has been disclosed to you from records whose confidentiality may be protected by state law. If your state requires such protection, then the state law prohibits you from making any further disclosure of the information without the specific written consent of the person to whom it pertains, or as otherwise permitted by law. A general authorization for the release of medical or other information is NOT sufficient for this purpose. For additional information please refer to http://education.[employer].[place]edo/faq/GHQ253 (This link is being provided for informational/ educational purposes only.) The performance of this assay has not been clinically validated in patients less than 2 years old. Test Performed at: [facility] [address] [place] [address] WESLEY ARAUJO DO,MPH Blood BLOOD SPECIMEN / Unknown 10/09/2020 10/09/2020 2:07 PM CDT Isa Rutledge MD LAB - CHEMISTRY ORD ERABLES Performing Organization Address [facility]/[place] Co de Phone Number [place] [phone] [place] [address] * GLUCOSE CHALLENGE (10/09/2020) Only the most recent of2 resultswithin the time period is included. GTT 1Hr 113 <135 mg/dL [facility] Comment: Test Performed at: [facility] [address] [place] [address] WESLEY ARAUJO DO,MPH Blood BLOOD SPECIMEN / Unknown 10/09/2020 10/09/2020 2:07 PM CDT Isa Rutledge MD LAB - CHEMISTRY ORD ERABLES Performing Organization Address [facility]/[place] [address] * MD OB US, LIMITED, FETUS(S), MD DOPPLER COLOR FLOW VELOCITY MAP, MD DOPPLER ECHO PULSED WAVE &/CONT WAVE; CMPL, MD SONO HEART (09/25/2020 4:59 PM CDT) Narrative Neha Atkins - 09/25/2020 4:59 PM CDT Neha Atkins 09/25/2020 5:00 PM Documentation in digisonics. Isa Rutledge MD PROCEDURE/MINOR DORA GICAL ORDERABLES * MD SONO HEART F/U, MD SONO FU OR REPEAT (09/11/2020 3:59 PM CDT) Narrative Renae Devine - 09/11/2020 3:59 PM CDT Estiven Devineelle 09/11/2020 3:59 PM Documentation in digisonics Ricardo Cagle MD PROCEDURE/KARINE R SURGICAL ORDERABLES * MD OB US, LIMITED, FETUS(S), MD DOPPLER ECHO PULSE WAVE&/CONT WAVE; REPEAT (08/28/2020 3:40 PM CDT) Narrative LeanderRenae - 08/28/2020 3:40 PM CDT LeanderRenae 08/28/2020 3:41 PM Documentation in digisonics Isa Rutledge MD PROCEDURE/MINOR DORA GICAL ORDERABLES * COMPLETE PFT (08/25/2020 4:22 PM CDT) Narrative [facility] - 08/25/2020 4:22 PM CDT Estiven Conklin MD 08/25/2020 4:30 PM PULMONARY FUNCTION TEST FVC: 1.95 L, 61 % predicted. Post bronchodilators 1.89 L, 59 % predicted. FEV1: 1.61 L, 58 % predicted. Post bronchodilator 1.64 L, 59 % predicted. FEV1/ FVC ratio: 83 %. FEF 25-75: 1.88 L/sec, 56 % of predicted T.68 L, 59 % of predicted RV/ TLC ratio: 26 %, 90 % of predicted. DLCO: 9.1 mL / min/ mmHg, 38 % of predicted. DLCO/VA: 3.96 mL / min/ mmHg/ L, 86 % of predicted. Interpretation: The flow volume loops and the volume time loops were reviewed and they were acceptable. The results show moderate reduction in forced vital capacity, moderately severe reduction in forced expiratory volume in the 1st second, and normal FEV1/ FVC ratio. Lung volumes show decreased total lung capacity and normal residual volume/total lung capacity ratio. Diffusion capacity is decreased, but when adjusted for lung volumes the results were normal. Impression: Moderately severe restrictive with no obstructive defect. There is no significant response to bronchodilators, but that does not preclude their clinical use. The reduction in diffusion capacity with normal DLCO/ VA could be due to the reduction in lung volumes during the measurement maneuver. However emphysema, interstitial lung disease and pulmonary vascular disease can also decrease diffusion capacity. Please correlate clinically. Estiven Conklin MD, [facility] Be advised that voice recognition software was used in the production of this record. Errors in interpretation may have been inadvertently missed during review. Procedure Note Estiven Conklin MD - 08/25/2020 4:22 PM CDT PULMONARY FUNCTION TEST FVC: 1.95 L, 61 % predicted. Post bronchodilators 1.89 L, 59 %predicted. FEV1: 1.61 L, 58 % predicted. Post bronchodilator 1.64 L, 59 %predicted. FEV1/ FVC ratio: 83 %. FEF 25-75: 1.88 L/sec, 56 % of predicted T.68 L, 59 % of predicted RV/ TLC ratio: 26 %, 90 % of predicted. DLCO: 9.1 mL / min/ mmHg, 38 % of predicted. DLCO/VA: 3.96 mL / min/ mmHg/ L, 86 % of predicted. Interpretation: The flow volume loops and the volume time loops were reviewed and theywere acceptable. The results show moderate reduction in forced vitalcapacity, moderately severe reduction in forced expiratory volume in the1st second, and normal FEV1/ FVC ratio. Lung volumes show decreased total lung capacity and normal residualvolume/total lung capacity ratio. Diffusion capacity is decreased, but when adjusted for lung volumes theresults were normal. Impression: Moderately severe restrictive with no obstructive defect. There is nosignificant response to bronchodilators, but that does not preclude theirclinical use. The reduction in diffusion capacity with normal DLCO/ VA could be due tothe reduction in lung volumes during the measurement maneuver. Howeveremphysema, interstitial lung disease and pulmonary vascular disease canalso decrease diffusion capacity. Please correlate clinically. Estiven Conklin MD, [facility] Be advised that voice recognition software was used in the production ofthis record. Errors in interpretation may have been inadvertently missedduring review. Isa Rutledge MD RESPIRATORY THERAPY ORDERABLES [facility] * ECHOCARDIOGRAM 2D WITH DOPPLER (08/25/2020 1:40 PM CDT) Only the most recent of2 resultswithin the time period is included. 08/25/2020 1:40 PM CDT Narrative Procedure Note Марина Bustamante DO - 08/25/2020 . [facility] [address] [place] [id number] Echocardiography Examination Transthoracic Name: THALIA ESPOSITO MPI#: [id number] MR#: [id number] Admission Number: [id number] Study Date: 08/25/2020 Study Time: 01:40 PM Date Of : 1990 Age: 30 years Height: 61 in. (154.9 cm) Weight: 156.99 lbs. (71.21 kg) BSA: 1.7 m2 Gender: Female Blood Pressure: 109 mmHg / 62 mmHg Heart Rate: Exam Details Procedure Ordered: ECHOCARDIOGRAM 2D W/DOPPLER Procedure Components: Complete 2D, M-mode, complete spectral Doppler, color Doppler Procedure Status: Routine study Facility Location: [facility] Indication: Systemic Lupus Erythematosus Procedure Psychopaedic Nurse: Radha Chicas RDCS Ordering Provider: ISA RUTLEDGE Reading Physician: Марина Bustamante DO Conclusions Left Ventricle: Left ventricle is normal in size. Normal global systolic left ventricular function. EF range is 60 % -65 %. Left ventricle wall thickness is normal. There are no regional wall motion abnormalities. Left ventricular diastolic function parameters are normal. Right Ventricle: Normal size right ventricle. Right ventricular systolic function is normal. Follow up: Findings Patient: THALIA ESPOSITO Study Date: 08/25/2020 01:40 PM Page 1 of 3 Left Ventricle: Left ventricle is normal in size. Normal global systolic left ventricular function. EF evaluated by biplane method of disks. Left ventricle wall thickness is normal. There are no regional wall motion abnormalities. Left ventricular diastolic function parameters are normal. Right Ventricle: Normal size right ventricle. Right ventricular wall thickness is normal. Right ventricular systolic function is normal. Pulmonary artery pressure not obtained due inadequate doppler jet; however no secondary evidence of pulmonary hypertension. Left Atrium: The left atrium is normal in size. Right Atrium: The right atrium is normal in size. Mitral Valve: Mitral leaflets exhibit normal cuspal separation. No mitral regurgitation. No mitral valve stenosis. Aortic Valve: Aortic leaflets exhibit normal cuspal separation. No aortic valve regurgitation. There is no aortic stenosis. Tricuspid Valve: Tricuspid valve leaflets are normal. Trivial tricuspid regurgitation. No tricuspid valve stenosis. Pulmonic Valve: Pulmonic leaflets exhibit normal cuspal separation. No pulmonic valve regurgitation is evident. There is no pulmonic valve stenosis. Aorta: The aorta is normal. No dilation of the ascending aorta. The aortic root exhibits normal size. Great Vessels: IVC: The inferior vena cava is normal in size and course. There is inspiratory collapse of the IVC. Pericardium: The pericardium is normal in appearance. No pericardial effusion. Measurements Anatomy Label Value Normal Value Aorta AoRoot, 2D 2.9 cm (1.4cm - 2.6cm) Aortic Valve AV Vmean 1.09 m/s Aortic Valve AV VTI 28.13 cm Aortic Valve AV PGmax 8 mmHg Aortic Valve AV PGmean 5 mmHg Aortic Valve AV Vmax, Curve 1.37 m/s (1m/s - 1.7m/s) Aortic Valve LVOT VTI / AV VTI 0.67 Aortic Valve NILS D (continuity eq. VTI) 2.1 cm Aortic Valve NILS Index (continuity 1.29 cm /m eq.Vmax) Aortic Valve LVOT Vmax / AV Vmax 0.72 Interventricular septum IVSd, 2D 1 cm (0.6cm - 1.1cm) Left Atrium LADs, 2D 3.4 cm (2.7cm - 3.8cm) Left Atrium LA Area s, A4C 16.2 cm (0cm - 20cm ) Left Atrium LA Area s, A2C 15.3 cm (0cm - 20cm ) Left Atrium LAESV, MOD4 43 ml (22ml - 52ml) Left Atrium LAESV, MOD2 43 ml (22ml - 52ml) Left Atrium LAESV index, MOD4 25.3 ml/m Left Atrium LAESV index, MOD2 25.3 ml/m Left Atrium LAESV index, AL4 26.5 ml/m Patient: THALIA ESPOSITO Study Date: 08/25/2020 01:40 PM Page 2 of 3 Left Atrium LAESV index, AL2 25.9 ml/m Left Ventricle LVOT Vmax 0.98 m/s (0.7m/s - 1.1m/s) Left Ventricle LVOTd 2 cm (1.8cm - 2cm) Left Ventricle LVOT VTI 18.94 cm (18cm - 22cm) Left Ventricle LVOT PGmax 4 mmHg Left Ventricle LVDd, 2D 4.2 cm (3.7cm - 5.2cm) Left Ventricle LVDs, 2D 2.9 cm (2.2cm - 3.5cm) Left Ventricle LVPWd, 2D 1 cm (0.6cm - 0.9cm) Left Ventricle FS, 2D 30.95 % Left Ventricle LVOT PGmean 2 mmHg Left Ventricle LVOT Vmean 0.6 m/s Left Ventricle EF lower range (%) 60 % Left Ventricle EF upper range (%) 65 % Left Ventricle Diastolic MV E Vmax 0.89 m/s Function Left Ventricle Diastolic MV A Vmax 0.61 m/s Function Left Ventricle Diastolic MV E/A 1.46 Function Left Ventricle Diastolic MV DT 199 ms Function Mitral Valve MV Dec [place] 4.5 m/s Pulmonic Valve PV PGmax 4 mmHg Pulmonic Valve PV Vmax, [place] 1 m/s (0.6m/s - 0.9m/s) Pulmonic Valve MD End arellano [place] 0.83 cm/s Right Ventricle Diastolic MD P diast. 3 mmHg Function Right Ventricle Diastolic Diast. PAP (MD P diast. + 6 mmHg Function CVP) Tricuspid Valve RA Pressure 3 mmHg (No Signature Object) Patient: THALIA ESPOSITO Study Date: 08/25/2020 01:40 PM Page 3 of 3 Isa Rutledge MD ECHO ORDERABLES [facility] [address] [place] [address] * (ABNORMAL) SURESWAB VAGINOSIS/VAGINITIS PLUS (08/14/2020 4:07 PM CDT) Chlamydia trachomatis RNA NOT DETECTED [facility] GC RNA NOT DETECTED [facility] Comment: REFERENCE RANGE: NOT DETECTED Methodology: Job Training Supervisor Mediated Amplification (TMA) to detect RNA. The analytical performance characteristics of this assay, when used to test SurePath(TM) specimens have been determined by [facility]. The modifications have not been cleared or approved by the FDA. This assay has been validated pursuant to the CLIA regulations and is used for clinical purposes. For additional information, please refer to https://education.[employer].[place]edo/faq/OXQ262 (This link is being provided for informational/ educational purposes only.) Lactobacillus species NOT DETECTED Log (cells/m L) [facility] Atopobium vaginae NOT DETECTED Log (cells/m L) [facility] Megasphera species NOT DETECTED Log (cells/m L) [facility] Gardnerella vaginalis 6.7 Log (cells/m L) [facility] BV Category SUPPORTIVE(A ) [facility] Comment: REFERENCE RANGE: BV Category: NOT SUPPORTIVE Methodology: Real-Time PCR NOT SUPPORTIVE OF BV: The pattern of results is not supportive of a diagnosis of BV: 1) Presence of Lactobacillus spp., G. vaginalis levels less than 6.0 log cells/mL, and absence of A. vaginae and Megasphaera spp; or 2) Absence of all targeted organisms; or 3) Absence of Lactobacillus spp. plus G. vaginalis detected at levels less than 6.0 log cells/mL and absence of A. vaginae and Megasphaera spp. EQUIVOCAL FOR BV: The pattern of results is neither supportive nor not supportive of a diagnosis of BV. The patient may be in transition into or out of BV: Presence of Lactobacillus spp. plus G. vaginalis (greater or equal to 6.0 log cells/mL) and/or one of the other BV-associated pathogens. SUPPORTIVE OF BV: The pattern of results is supportive of a diagnosis of BV: Absence of Lactobacillus spp. and presence of G. vaginalis greater than or equal to 6.0 log cells/mL and/or one or both of the other BV-associated pathogens. Concentration for Lactobacilli (L. acidophilus/crispatus, L. jensenii) are collectively reported under the term Lactobacillus spp. , as these species are among the peroxide producing Lactobacilli thought to be protective against bacterial vaginosis. Atopobium vaginae, Megasphaera spp., and Gardnerella (greater than 6.0 log cells/mL) have been associated with vaginosis when present in the absence of peroxidase producing Lactobacilli. This test was developed and its analytical performance characteristics have been determined by [facility]. It has not been cleared or approved by FDA. This assay has been validated pursuant to the CLIA regulations and is used for clinical purposes. Trichomonas vaginalis RNA Qualitative NOT DETECTED [facility] Comment: REFERENCE RANGE: NOT DETECTED Methodology: Job Training Supervisor Mediated Amplification (TMA) For additional information, please refer to http://education.Fast Society/faq/Trichomonastma (This link is being provided for informational/educational purposes only.) Tess albicans DNA DETECTED(A) [facility] Tess glabrata DNA NOT DETECTED [facility] Tess tropicalis DNA NOT DETECTED [facility] Tess parapsilosis DNA NOT DETECTED [facility] Comment: REFERENCE RANGE: NOT DETECTED Methodology: Real-Time PCR This test was developed and its analytical performance characteristics have been determined by [facility]. It has not been cleared or approved by FDA. This assay has been validated pursuant to the CLIA regulations and is used for clinical purposes. Test Performed at: [facility] [address] [place] [id number] Radha LANDRY Microbiology VAGINAL SWAB / Unknown 08/14/2020 4:07 PM CDT 08/15/2020 2:20 AM CDT Isa Rutledge MD LAB - MICROBIOLOGY ORDERABLES [facility] [address] [place] [address] * MD DOPPLER ECHO PULSE WAVE&/CONT WAVE; REPEAT, MD ULTRASND,PREG UTERUS,IMAGE DOC (08/14/2020 3:16 PM CDT) Narrative Mikaelaapr - 08/14/2020 3:16 PM CDT Mikaela, 08/14/2020 3:16 PM Documentation in Digisonics. Isa Rutledge MD PROCEDURE/MINOR DORA GICAL ORDERABLES * WET PREP - POINT OF CARE (AMB) [facility] (08/14/2020) Only the most recent of2 resultswithin the time period is included. pH Wet Prep 4.5 Yeast Wet Prep y Trichomonas Wet Prep Absent Bacteria Wet Prep n Whiff Test n BODY FLUID SPECIMEN / Unknown 08/14/2020 Isa Rutledge MD LAB - POINT OF CARE ORDERABLES * PROC US ECHOGRAPHY TRANSVAGINAL (07/31/2020 3:33 PM CDT) Narrative Neha Atkins - 07/31/2020 3:33 PM CDT Neha Atkins 07/31/2020 3:34 PM Documentation in digisonics. Garrick Farley MD PROCEDURE/MINOR SURG ICAL ORDERABLES * NM LUNG SCAN PERFUSION ONLY (07/09/2020 11:00 PM CDT) Anatomical Region Laterality Modality Lung, Chest Nuclear Medicine 07/10/2020 10:5 4 AM CDT Impressions 07/10/2020 10:59 AM CDT No evidence of pulmonary embolism. A preliminary report was provided by [facility] on 07/09/2020 at 11:21 PM. *Reading Radiologist: Shahriar Ballesteros on 07/10/2020 at 10:59 AM Narrative 07/10/2020 10:59 AM CDT Perfusion only lung scan HISTORY: 30 year-old female with chest pain. TECHNIQUE: Following the intravenous injection of 3.15 mCi Tc-99m MAA, static images of the chest are obtained in the anterior, posterior, LPO, RPO, left lateral and right lateral views. FINDINGS: No recent x-ray is available for comparison. Perfusion images demonstrate heterogeneous distribution of radiopharmaceutical throughout both lungs. No definite segmental or subsegmental-appearing defects are noted. Procedure Note Shahriar Ballesteros DO - 07/10/2020 Perfusion only lung scan HISTORY: 30 year-old female with chest pain. TECHNIQUE: Following the intravenous injection of 3.15 mCi Tc-99m MAA, static images of the chest are obtained in the anterior, posterior, LPO, RPO, left lateral and right lateral views. FINDINGS: No recent x-ray is available for comparison. Perfusion images demonstrate heterogeneous distribution of radiopharmaceutical throughout both lungs. No definite segmental or subsegmental-appearing defects are noted. IMPRESSION No evidence of pulmonary embolism. A preliminary report was provided by [facility] on 07/09/2020 at 11:21 PM. *Reading Radiologist: Shahriar Ballesteros on 07/10/2020 at 10:59 AM Leia Winslow MD NM ORDERABLES * ANTIBODY SCREEN (06/23/2020 3:20 PM CDT) Only the most recent of6 resultswithin the time period is included. Antibody Screen POS 4:34 PM CDT [facility] Comment:History checked. Blood BLOOD SPECIMEN / Unknown Lab Venipuncture / Unknown 06/23/2020 3:20 PM CDT 06/23/2020 3:25 PM CDT Isa Rutledge MD LAB - BLOOD BANK OR DERABLES [facility] [address] [place] [address] * LUPUS ANTICOAGULANT PANEL (06/12/2020 4:54 PM ACTING INSTRUCTOR) Only the most recent of3 resultswithin the time period is included. Pathologist [facility] APTT 32.1 23.0 - 38.4 Seconds 06/16/2020 10:53 AM [facility] PT 12.5 12.1 - 14.8 Seconds 06/16/2020 10:53 AM [facility] INR 1.0 See Comment 06/16/2020 10:53 AM [facility] [place] Buffer 46.4 Seconds 021 10:53 AM [facility] [place] Phospholipid 43.8 Seconds 06/16/2020 10:53 AM [facility] [place] Delta 2.6 <8.0 Seconds 06/16/2020 10:53 AM [facility] Interpretation [place] Negative 06/16/2020 10:53 AM [facility] Comment:Up to 15-20% of rehan ents with lupus anticoagulant associated with antiphospholipid antibody syndrome (APAS) will have negative [place] results. For these patients we recommend additional testing to include the Dilute David Viper Venom Time (DRVVT) test. Immunoassay measurements of anti-cardiolipin and anti-beta-2 glycoprotein 1 are recommended if the DRVVT, and [place] tests are negative and there is clinical suspicion of APAS. Blood BLOOD SPECIMEN / Unknown Lab Venipuncture / Unknown 06/12/2020 4:54 PM ACTING INSTRUCTOR 06/12/2020 4:54 PM ACTING INSTRUCTOR Isa Rutledge MD LAB - HEMATOLOGY OR DERABLES [facility] [place] [id number] [place] [address], [facility] [phone] * HEMOGLOBIN A1C (06/12/2020 4:54 PM ACTING INSTRUCTOR) Hemoglobin A1c 4.9 4.2 - 5.6 % 06/12/2020 5:26 PM ACTING INSTRUCTOR [facility] Estimated Average Glucose 94 mg/dL 06/12/2020 5:26 PM ACTING INSTRUCTOR [facility] Blood BLOOD SPECIMEN / Unknown Lab Venipuncture / Unknown 06/12/2020 4:54 PM ACTING INSTRUCTOR 06/12/2020 4:53 PM ACTING INSTRUCTOR Narrative [facility] - 06/12/2020 5:26 PM ACTING INSTRUCTOR The following cutoff levels are recommended by [place] [employer]. A1c > 6.5% : considered as diabetes if two separate tests >6.5% or in an appropriate clinical setting. A1c 5.7% - 6.4% : considered as prediabetes (suggest increased risk for diabetes and cardiovascular disease) Control target level: Should be individualized. < 7 for general (non-) , < 8% less stringent goal, < 6.5 more stringent goal. Hemoglobin A1c measurements are used as an aid in the diagnosis of diabetic mellitus, as an aid to identify patients who may be at the risk for developing diabetic mellitus, and for the monitoring long-term blood glucose control in individuals with diabetes mellitus. This test should not replace glucose testing for patients with Type 1 diabetes, pediatric patients, or women. Falsely low HbA1c results may be observed in patients with clinical conditions that shorten erythrocyte life span or decrease mean erythrocyte age such as the presence of unstable hemoglobin variants, elevated hemoglobin F level or other causes of hemolytic anemia . HbA1c may not accurately reflect glycemic control when clinical conditions that affect erythrocyte survival are present. Severe Iron deficiency anemia may yield falsely high results. Hemoglobin A1c assay should not be used to diagnose or monitor diabetes in patients with malignancy, recent blood transfusion, chronic kidney or liver disease. This method may yield falsely low results when hemoglobin (HbF) exceeds 5% in the specimen. Isa Rutledge MD LAB - CHEMISTRY ORD ERABLES [facility] [address] [place], [place] [id number] * MD US NUCHAL TRANSLUCENCY 1ST GESTATION (06/12/2020 2:46 PM ACTING INSTRUCTOR) Narrative Renae Devine - 06/12/2020 2:46 PM ACTING INSTRUCTOR Renae Devine 06/12/2020 2:46 PM Documentation in digisonics Isa Rutledge MD PROCEDURE/MINOR DORA GICAL ORDERABLES * QNATAL ADVANCED (06/12/2020 1:43 PM ACTING INSTRUCTOR) Number of Fetuses 1 [facility] Advanced Maternal Age NO [facility] Abnormal NOEL NO [facility] Abnormal US NO [facility] Family History NOT GIVEN [facility] Interpretation Qnatal Advanced SEE NOTE [facility] Comment: This specimen showed expected representation of chromosome 21, 18, and 13 material. Trisomy 21 (Down Syndrome) Negative [facility] Trisomy 18 Negative [facility] Trisomy 13 Negative [facility] Y Chromosome Not detected [facility] Y Chromosome Interp SEE NOTE [facility] Comment:Consistent with a fe male fetus. Chromosome Sex No aneuploidy [facility] Interpretation Chromosome Sex SEE NOTE [facility] Comment: No apparent abnormality was detected. See Limitations below. Microdeletion Not detected [facility] Interpretation Microdeletion SEE NOTE [facility] Comment: No apparent abnormality was detected. See Limitations below. Gestational Age Weeks 11 [facility] Gestational Age Days 6 [facility] Fraction 12.55% [facility] Lab Comments Qnatal Advanced SEE NOTE [facility] Comment: Laboratory results and submitted clinical information reviewed by Maria Eugenia Zhang, Ph.D., [facility], [facility]. Limitations Qnatal Advanced SEE NOTE [facility] Comment: This test has been validated on women with a corado that is >=10 weeks gestational age. As such, the accuracy of this test for specimens drawn at less than 10 weeks gestation is unknown. In addition, there are limited data available for the performance of this test in multiple gestation pregnancies and for the detection of microdeletions. Specimens are analyzed for aneuploidies involving chromosomes 21, 18, 13, X, and Y, and microdeletions of the specified regions only. The Y chromosome is analyzed for the determination of sex, and the sensitivity and specificity of this analysis may be less than that of the autosome analysis. Sex chromosome aneuploidy analysis is not performed for multiple gestation pregnancies. Aneuploidies involving chromosomes other than those specified above or abnormalities involving chromosomal regions other than those specified are not included in this testing. While the results of this test are highly accurate, not all of the chromosome abnormalities interrogated may be detected due to maternal, placental, or mosaicism, or other unexplained causes. The accuracy of the test results may also be affected by the presence of chromosome abnormalities or copy number variations that are maternal in origin, or by vanishing twin syndrome in a multiple gestation . Circulating cell-free DNA screening does not replace the precision of diagnosis using chorionic villus sampling or amniocentesis. It does not assess the risk of anomalies such as neural tube defects or ventral wall defects, and should not be considered in isolation from other clinical findings and laboratory test results. Management decisions, including termination, should not be based solely on the results of cell-free DNA screening. A negative test result does not ensure an unaffected . The healthcare provider is responsible for the use of this information in the management of his/her patient. Health care providers, please contact your local [facility] genetic counselor or call [facility] [employer] [facility] [employer] [facility] at [email or web address] ([phone]) for assistance with interpretation of these results. Specifications [employer]One SEE NOTE [facility] Comment: Sensitivity Specificity T21 >99.9% >99.9% T18 >99.9% >99.9% T13 >99.9% >99.9% Accuracy Y >99.9% Performance of the [employer] laboratory-developed test (LDT) has been determined based on internal analytical assessment. Methodology [employer] SEE NOTE [facility] Comment: Circulating cell-free (cf) DNA was isolated from plasma. It was then detected on a massively parallel sequencing platform. Bioinformatic analysis was performed to determine the representation of DNA in the specimen, especially material from chromosomes 21, 18, and 13. The representation of other material, including the sex chromosomes (X and Y) and select chromosomal regions (22q, 15q, 11q, 8q, 5p, 4p 1p), was also evaluated and will only be reported as Additional Chromosome Results when an abnormality is detected. This test was developed and its performance characteristics have been determined by [facility]. It has not been cleared or approved by the U.S. Food and Drug Administration. The FDA has determined that such clearance or approval is not necessary. Performance characteristics refer to the analytical performance of the test. This test is performed pursuant to a license agreement with [employer]. This test was developed and its analytical performance characteristics have been determined by [facility]. It has not been cleared or approved by FDA. This assay has been validated pursuant to the CLIA regulations and is used for clinical purposes. Test Performed at: [facility] [facility] [address] [place] [address] MARIO IZQUIERDO MD,PHD,JASON Blood BLOOD SPECIMEN / Unknown 06/12/2020 1:43 PM ACTING INSTRUCTOR 06/12/2020 1:44 PM ACTING INSTRUCTOR Garrick Farley MD LAB - CHEMISTRY [facility] Organization Address City/State/ZIP Co de Phone Number [facility] [address] [place] [address] * MD ULTRASOUND, UTERUS (05/15/2020 3:40 PM ACTING INSTRUCTOR) Narrative Dina Dockery RDMS - 05/15/2020 3:40 PM ACTING INSTRUCTOR Dina Dockery RDMS 05/15/2020 3:40 PM Documentation in digisonics. Garrick Farley MD PROCEDURE/MINOR SURG ICAL ORDERABLES * C. TRACHOMATIS + N. GONORRHOEAE + TRICH DAT (05/15/2020 3:11 PM ACTING INSTRUCTOR) Chlamydia Trachomatis DAT Not detected Not detected 05/18/2020 4:35 PM ACTING INSTRUCTOR [facility] Neisseria Gonorrhoeae DAT Not detected Not detected 05/18/2020 4:35 PM ACTING INSTRUCTOR [facility] Trichomonas Vaginalis DAT Not detected Not detected 05/18/2020 4:35 PM ACTING INSTRUCTOR [facility] Pathology/Cytolo gy VAGINA AND CERVIX, CS / Unknown 05/15/2020 3:11 PM ACTING INSTRUCTOR 05/18/2020 12:24 PM ACTING INSTRUCTOR Narrative [facility] - 05/18/2020 4:35 PM ACTING INSTRUCTOR This analysis was performed using Gen-Probe Aptima Combo 2 and Gen-Probe Aptima Assay. These methodologies are U.S. FDA approved for Chlamydia trachomatis, Neisseria gonorrhoeae testing for urine and urogenital swabs from men and women, and cervical cells submitted in ThinPrep vials. Performance characteristics of testing for Trichomonas vaginalis on specimens using the Gen-Probe Aptima Trichomonas vaginalis Assay on the [place] system and rectal and pharyngeal swabs with Gen-Probe Aptima combo 2 were determined by the [facility] at [facility]. They have not been cleared or approved by the U.S Food and Drug Administration (FDA). The FDA has determined that such clearance approval is not necessary. This test is used for clinical purposes and should not be regarded as investigational or for research. This laboratory is certified under the Clinical Laboratory Improvements Amendments of 1988 (CLIA 1988), as qualified to perform high complexity laboratory testing. Garrick Farley MD [facility] - [facility] [address] [phone] * PAP IMAGE-GUIDED RFLX HPV+CT/NG+TRICH (05/15/2020 3:11 PM ACTING INSTRUCTOR) Case Report Gynecologic Cytology Report Case: [id number] Authorizing Provider: Garrick Farley MD Collected: 05/15/2020 03:11 PM Ordering Location: [facility] Obstetrics Received: 05/18/2020 12:24 PM [facility] Screen: Guru Ellis Specimen: THINPREP - IMAGE GUIDED, Cervicovaginal 05/19/2020 3:44 PM ACTING INSTRUCTOR [facility] LMP preg 05/19/2020 3:44 PM ACTING INSTRUCTOR [facility] Menstrual Status 05/19/19 3:44 PM ACTING INSTRUCTOR [facility] Comment:[id number] Specimen Adequacy Satisfactory for evaluation, endocervical/trans formation zone component present. 05/19/2020 3:44 PM ACTING INSTRUCTOR [facility] Categorization Negative for intraepithelial lesion or malignancy. 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 05/19/2020 3:44 PM [facility] Other Predominance of Coccobacilli consistent with shift in vaginal nenita (vaginosis). Inflammation present. 05/19/2020 3:44 PM [facility] Pap Footnote The Pap Smear is a screening test. False positive and false negative results occur. Negative results do not preclude abnormalities, thus clinical correlation is required. This specimen was evaluated by the ThinPrep Imaging System along with an additional manual rescreening by a vehicle dynamics engineer and/or pathologist. 05/19/2020 3:44 PM [facility] Embedded Images 3:44 PM [facility] Pathology/Cytolo gy VAGINA AND CERVIX, CS / Unknown 05/15/2020 3:11 PM ACTING INSTRUCTOR 05/18/2020 12:24 PM ACTING INSTRUCTOR Garrick Farley MD LAB - PATHOLOGY/CYTO LOGY ORDERABLES [facility] [address] [phone] * (ABNORMAL) AIMEE DIRECT RFLX ANTI C3 AND ANTI IGG (05/15/2020) Direct Antiglobulin w/refl Anti C3, Anti IgG POSITIVE( A) NEGATIVE [facility] Comment: Test Performed at: [facility] [address] [place] [address] WESLEY ARAUJO DO,MPH 05/15/2020 05/15/2020 3:2 0 PM ACTING INSTRUCTOR Garrick Farley MD LAB - BLOOD BANK ORD ERABLES [facility] [address] [place] [address] * (ABNORMAL) COMPLEMENT C3 AB+IGG AB (05/15/2020) Only the most recent of2 resultswithin the time period is included. Pathologist [facility] Anti-Complement POSITIVE( A) NEGATIVE [facility] Anti-IgE POSITIVE( A) NEGATIVE [facility] Comment: Test Performed at: [facility] [address] [facility] [place] [address] WESLEY ARAUJO DO,MPH 05/15/2020 05/15/2020 3:2 0 PM ACTING INSTRUCTOR Garrick Farley MD LAB - COAGULATION OR DERABLES [employer] [address] [place] [address] * (ABNORMAL) OB Panel W/ HBSAG (05/15/2020) Only the most recent of2 resultswithin the time period is included. Pathologist [facility] White Blood Cell Count 3.9 3.8 - 10.8 Thousand/ uL [facility] RBC 3.99 3.80 - 5.10 Million/u L [facility] Hemoglobin 11.8 11.7 - 15.5 g/dL [facility] Hematocrit 33.7(L) 35.0 - 45.0 % [facility] MCV 84.5 80.0 - 100.0 fL [facility] MCH 29.6 27.0 - 33.0 pg [facility] MCHC 35.0 32.0 - 36.0 g/dL [facility] RDW 14.3 11.0 - 15.0 % [facility] Platelet Count 268 140 - 400 Thousand/ uL [facility] MPV 11.3 7.5 - 12.5 fL [facility] Antibody Screen POSITIVE(A) [facility] Comment: Identification and titer to follow Reference range No antibodies detected This assay is a screening test for the detection of red blood cell antibodies. The test is not to be used for pretransfusion screening or for the medical management of an alloimmunized . ABO A [facility] Rh Type RH(D) POSITIVE [facility] Comment: For additional information, please refer to http://education.Sravnikupi/faq/FTX780 (This link is being provided for informational/ educational purposes only.) RPR NON-REACTIVE NON-REACT JAVAD [facility] Hepatitis B Virus Surface Antigen NON-REACTIVE NON-REACT JAVAD [facility] Rubella Antibody <0.90(L) Index [facility] Comment: Index Interpretation ----- <0.90 Not consistent with immunity 0.90-0.99 Equivocal > or = 1.00 Consistent with immunity The presence of rubella IgG antibody suggests immunization or past or current infection with rubella virus. Test Performed at: [facility] [address] [place] [address] WESLEY ARAUJO DO,MPH Blood BLOOD SPECIMEN / Unknown 05/15/2020 05/15/2020 3:20 PM ACTING INSTRUCTOR Garrick Farley MD LAB - CHEMISTRY ORDE [facility] Performing Organization Address [facility] Co de Phone Number [facility] [address] [place] [address] * (ABNORMAL) ROGERS (SM)+MEDICAL ASSEMBLY ANTIBODY PANEL (05/15/2020) [facility] SM Antibody <1.0 NEG <1.0 NEG AI [facility] SM/MEDICAL ASSEMBLY Antibody >8.0 POS(A) <1.0 NEG AI [facility] Comment: Test Performed at: [facility] [address] [place] [address] WESLEY ARAUJO DO,MPH Blood BLOOD SPECIMEN / Unknown 05/15/2020 05/15/2020 3:20 PM ACTING INSTRUCTOR Garrick Farley MD LAB - SEROLOGY ORDER HEATHER Performing Organization Address [facility] Co de Phone Number [facility] [address] [place] [address] * (ABNORMAL) DIFFERENTIAL MANUAL RFLXED (05/15/2020) Pathologist [facility] Neutrophil Absolute 2379 1500 - 7800 cells/uL [facility] Lymphocytes Absolute 1131 850 - 3900 cells/uL [facility] Absolute Monocytes 195(L) 200 - 950 cells/uL [facility] Eosinophils Absolute 195 15 - 500 cells/uL [facility] Basophils Absolute 0 0 - 200 cells/uL [facility] Granulocytes % 61 % [facility] Lymphocytes % 29 % [facility] Monocytes % 5 % [facility] Eosinophils % 5 % [facility] Basophils % 0 % [facility] Platelet Estimation ADEQUATE ADEQUATE [facility] CBC Morphology NORMAL [facility] Comment:Ovalocytes 1 + See Note See Below [facility] Comment: Although an automated CBC was ordered, our instrumentation detected an abnormality on your patient's specimen requiring us to perform a manual review. Test Performed at: [email or web address] [place] [address] WESLEY ARAUJO DO,MPH 05/15/2020 05/15/2020 3:2 0 PM ACTING INSTRUCTOR Garrick Farley MD LAB - HEMATOLOGY ORD ERABLES [facility] [address] [place] [address] * CARDIOLIPIN ANTIBODY IGA/IGG/IGM PANEL (05/15/2020) Cardiolipin Antibody IgA <11 APL [facility] Cardiolipin Antibody IgG <14 GPL [facility] Cardiolipin Antibody IgM <12 MPL [facility] Comment: The antiphospholipid antibody syndrome (APS) is a clinical-pathologic correlation that includes a clinical event (e.g. thrombosis, loss, thrombocytopenia) and persistent positive antiphospholipid antibodies (IgM or IgG FAREED >40 MPL/GPL,IgM or IgG anti-b2GPI antibodies or a lupus anticoagulant). International consensus guidelines for APS suggest waiting at least 12 weeks before retesting to confirm antibody persistence. The Systemic Lupus International Collaborating Clinics immunological classification criteria for systemic lupus erythematosus (SLE) include testing for isotype IgA, which has yet to be incorporated into APS criteria. Low level antiphospholipid antibodies may sometimes be detected in the setting of infection, drug therapy or aging. Cardiolipin Ab (IgA) Value Interpretation ----- < or = 11 Negative 12-20 Indeterminate 21-80 Low to Medium Positive >80 High Positive Cardiolipin Ab (IgG) Value Interpretation ----- < or = 14 Negative 15-20 Indeterminate 21-80 Low to Medium Positive >80 High Positive >40 GPL is a risk factor for thrombosis and loss. Cardiolipin Ab (IgM) Value Interpretation ----- < or = 12 Negative 13-20 Indeterminate 21-80 Low to Medium Positive >80 High Positive >40 MPL is a risk factor for thrombosis and loss. REPORT COMMENT: FASTING:NO Test Performed at: [facility] [address] [place] [address] MARIO IZQUIERDO MD,PHD,JASON Blood BLOOD SPECIMEN / Unknown 05/15/2020 05/15/2020 3:20 PM ACTING INSTRUCTOR Garrick Farley MD LAB - SEROLOGY ORDER HEATHER Performing Organization Address [facility] Co de Phone Number [facility] [address] [place] [address] * BETA-2 GLYCOPROTEIN 1 ANTIBODY IGG/IGM/IGA PANEL (05/15/2020) Beta-2 Glycoprotein I Antibody IgG <9 <=20 [facility] Beta-2 Glycoprotein I Antibody IgM <9 <=20 [facility] Beta-2 Glycoprotein I Antibody IgA 11 <=20 [facility] Comment: The antiphospholipid antibody syndrome (APS) is a clinical-pathologic correlation that includes a clinical event (e.g. thrombosis, loss, thrombocytopenia) and persistent positive antiphospho- lipid antibodies (IgM or IgG FAREED >40 MPL/GPL, IgM or IgG anti-b2GPI antibodies or a lupus anticoagulant). International consensus guidelines for APS suggest waiting at least 12 weeks before retesting to confirm antibody persistence. The Systemic Lupus International Collaborating Clinics immunological classification criteria for systemic lupus erythematosus (SLE) include testing for isotype IgA, which has yet to be incorpo- rated into APS criteria. Low level antiphospholipid antibodies may sometimes be detected in the setting of infection, drug therapy or aging. Test Performed at: [facility]/[address] PARAS LOPEZ MD,PHD Blood BLOOD SPECIMEN / Unknown 05/15/2020 05/15/2020 3:20 PM ACTING INSTRUCTOR Garrick Farley MD LAB - SEROLOGY ORDER HEATHER Performing Organization Address [facility] Co de Phone Number [facility] [address] [place] [address] * (ABNORMAL) JEAN-PAUL BLOOD SCREEN W/REFLEX TITER (05/15/2020) Only the most recent of5 resultswithin the time period is included. JEAN-PAUL Screen POSITIVE( A) NEGATIVE [facility] Comment: JEAN-PAUL IFA is a first line screen for detecting the presence of up to approximately 150 autoantibodies in various autoimmune diseases. A positive JEAN-PAUL IFA result is suggestive of autoimmune disease and reflexes to titer and pattern. Further laboratory testing may be considered if clinically indicated. For additional information, please refer to http://education.Sravnikupi/faq/MFR901 (This link is being provided for informational/ educational purposes only.) Test Performed at: [facility] [address] [place] [address] WESLEY ARAUJO DO,MPH Blood BLOOD SPECIMEN / Unknown 05/15/2020 05/15/2020 3:20 PM ACTING INSTRUCTOR Garrick Farley MD LAB - CHEMISTRY TOSHIA POPE Performing Organization Address [facility] de Phone Number [address] [address] * (ABNORMAL) SS-A/SS-B (SJOGREN'S) ANTIBODY PANEL (05/15/2020) Only the most recent of2 resultswithin the time period is included. Sjogren's Antibodies (SSA) >8.0 POS(A) <1.0 NEG AI [facility] Sjogren's Antibodies (SSB) <1.0 NEG <1.0 NEG AI [facility] Comment: Test Performed at: [facility] [address] [address] WESLEY ARAUJO DO,MPH Blood BLOOD SPECIMEN / Unknown 05/15/2020 05/15/2020 3:20 PM ACTING INSTRUCTOR Garrick Farley MD LAB - CHEMISTRY TOSHIA POPE Performing Organization Address [facility] Co de Phone Number [address] [address] * RIBOSOMAL P PROTEIN ANTIBODY (05/15/2020) Only the most recent of5 resultswithin the time period is included. Ribosomal P Protein Antibody <1.0 NEG <1.0 NEG AI [facility] Comment: Test Performed at: [facility] [address] [address] WESLEY ARAUJO DO,MPH Blood BLOOD SPECIMEN / Unknown 05/15/2020 05/15/2020 3:20 PM ACTING INSTRUCTOR Garrick Farley MD LAB - CHEMISTRY TOSHIA POPE Performing Organization Address [facility] Co de Phone Number [facility] [address] [place] [address] * (ABNORMAL) COMPLEMENT C3 C4 PANEL (05/15/2020) Complement C3 91 83 - 193 mg/dL [facility] Complement C4 9(L) 15 - 57 mg/dL [facility] Comment: Test Performed at: [facility] [address] [place] [address] WESLEY ARAUJO DO,MPH Blood BLOOD SPECIMEN / Unknown 05/15/2020 05/15/2020 3:20 PM ACTING INSTRUCTOR Garrick Farley MD LAB - CHEMISTRY TOSHIA POPE Performing Organization Address [facility] Co de Phone Number [facility] [address] [place] [address] * CT ABDOMEN PELVIS W CONTRAST (04/01/2019 4:57 PM ACTING INSTRUCTOR) Only the most recent of5 resultswithin the time period is included. Anatomical Region Laterality Modality Abdomen, Pelvis Computed Tomogra phy 04/01/2019 5:15 PM ACTING INSTRUCTOR Impressions 04/02/2019 8:45 AM ACTING INSTRUCTOR IMPRESSION: 1. 3.5 x 2.7 x 3.9 cm septated hypoattenuating lesion with water attenuation in the area of the right adnexa. This may represent a cyst versus a dominant follicle depending on the current stage of the patient's menstrual cycle, please correlate clinically. 2. Multiple hypoattenuating lesions in both kidneys measuring up to 1.6 cm the right kidney with greater than simple fluid attenuation. These appear minimally increased in size without significant increase in number when compared with the previous exam dated 05/07/2016. These may represent hemorrhagic or proteinaceous cyst. If clinically indicated, a nonemergent renal ultrasound may be obtained for further evaluation. Dictated by Tone Johnson DO (residential remodeling subcontractor). I, Dr. PENELOPE JOY M.D. have personally reviewed and interpreted this examination/study. This report was electronically signed by PENELOPE JOY M.D. on 04/02/2019 8:45 AM . Narrative 04/02/2019 8:45 AM ACTING INSTRUCTOR EXAMINATION: Computed tomography (CT) of the abdomen and pelvis with contrast HISTORY: R11.2: Non-intractable vomiting with nausea, unspecified vomiting type M54.5: Acute bilateral low back pain without sciatica Rule out small bowel obstruction Small renal cysts, TECHNIQUE: CT of the abdomen and pelvis was performed following the uneventful administration of 100 mL of Isovue 370 intravenous contrast according to standard protocol. COMPARISON: CT abdomen pelvis with contrast dated 05/07/2016. FINDINGS: The visible lung bases are clear. The heart size is normal without pericardial effusion. The liver appears normal without focal lesion. The gallbladder is surgically absent. The intrahepatic and extrahepatic bile ducts are nondilated. The spleen enhances homogenously without focal lesion. The pancreas and adrenal glands are normal. Multiple hypoattenuating lesions are again seen in both kidneys measuring up to 1.6 cm in the right kidney with greater than simple fluid attenuation. These are minimally increased in size without increase in number when compared with previous exam dated 05/07/2016. Otherwise the kidneys demonstrate symmetric enhancement without evidence of renal calculus or hydronephrosis. A clip is seen posterior to the liver inferiorly. A second clip is seen in the pelvic cul-de-sac. The distal esophagus and stomach appear normal. The small bowel and large bowel are normal in caliber without evidence of wall thickening or obstruction. The appendix appears normal without appendicolith or surrounding inflammatory changes. No free air or free fluid is identified within the abdomen. There is no abdominal lymphadenopathy. The abdominal aorta is normal in course and caliber. Infrarenal inferior vena cava filter is seen with the struts extending beyond the gaona of the vessel. The urinary bladder is partially distended with fluid and appears normal. A septated hypoattenuating lesion is seen in the area of the right adnexa measuring approximately 3.5 x 2.7 x 3.9 cm (series 3 image 122 and series 5 image 59). This has water attenuation and may represent a cyst versus dominant follicle depending on the current stage of the patient's menstrual cycle. Trace free fluid is seen within the pelvis. A 1.4 cm left inguinal lymph node is demonstrated (series 3 image 135), previously 9 mm. Other subcentimeter lymph nodes are seen bilaterally also slightly larger compared to prior. Bone windows demonstrate no suspicious lytic or blastic lesions. The visible osseous structures are intact. Procedure Note Penelope Joy MD - 04/02/2019 EXAMINATION: Computed tomography (CT) of the abdomen and pelvis with contrast HISTORY: R11.2: Non-intractable vomiting with nausea, unspecifiedvomiting type M54.5: Acute bilateral low back pain without sciatica Rule out small bowel obstruction Small renal cysts, TECHNIQUE: CT of the abdomen and pelvis was performed following the uneventful administration of 100 mL of Isovue 370 intravenous contrast according to standard protocol. COMPARISON: CT abdomen pelvis with contrast dated 05/07/2016. FINDINGS: The visible lung bases are clear. The heart size is normal without pericardial effusion. The liver appears normal without focal lesion. The gallbladder is surgically absent. The intrahepatic and extrahepatic bile ducts are nondilated. The spleen enhances homogenously without focal lesion. The pancreas and adrenal glands are normal. Multiple hypoattenuating lesions are again seen in both kidneys measuring up to 1.6 cm in the rightkidney with greater than simple fluid attenuation. These are minimallyincreased in size without increase in number when compared with previous examdated 05/07/2016. Otherwise the kidneys demonstrate symmetric enhancementwithout evidence of renal calculus or hydronephrosis. A clip is seen posteriorto the liver inferiorly. A second clip is seen in the pelvic cul-de-sac. The distal esophagus and stomach appear normal. The small bowel andlarge bowel are normal in caliber without evidence of wall thickening or obstruction. The appendix appears normal without appendicolith or surrounding inflammatory changes. No free air or free fluid isidentified within the abdomen. There is no abdominal lymphadenopathy. The abdominal aorta is normal in course and caliber. Infrarenal inferior vena cava filter is seen with the struts extending beyond the gaona of the vessel. The urinary bladder is partially distended with fluid and appearsnormal. A septated hypoattenuating lesion is seen in the area of the rightadnexa measuring approximately 3.5 x 2.7 x 3.9 cm (series 3 image 122 andseries 5 image 59). This has water attenuation and may represent a cyst versus dominant follicle depending on the current stage of the patient's menstrual cycle. Trace free fluid is seen within the pelvis. A 1.4 cmleft inguinal lymph node is demonstrated (series 3 image 135), previously 9mm. Other subcentimeter lymph nodes are seen bilaterally also slightlylarger compared to prior. Bone windows demonstrate no suspicious lytic orblastic lesions. The visible osseous structures are intact. IMPRESSION: 1. 3.5 x 2.7 x 3.9 cm septated hypoattenuating lesion with water attenuation in the area of the right adnexa. This may represent a cyst versus a dominant follicle depending on the current stage of thepatient's menstrual cycle, please correlate clinically. 2. Multiple hypoattenuating lesions in both kidneys measuring up to 1.6cm the right kidney with greater than simple fluid attenuation. Theseappear minimally increased in size without significant increase in number when compared with the previous exam dated 05/07/2016. These may represent hemorrhagic or proteinaceous cyst. If clinically indicated, anonemergent renal ultrasound may be obtained for further evaluation. Dictated by Tone Johnson DO (residential remodeling subcontractor). I, Dr. PENELOPE JOY M.D. have personally reviewed and interpreted this examination/study. This report was electronically signed by PENELOPE JOY M.D. on04/02/2019 8:45 AM . Tad Lyons MD CT ORDERABLES * HCG URINE QUALITATIVE - POINT OF CARE (04/01/2019 2:32 PM ACTING INSTRUCTOR) HCG Qual Urine Negative Negative [facility] P OCT TESTING QC Verified Yes Yes [facility] POCT TESTING Urine URINE / Unknown 04/01/2019 2 :32 PM ACTING INSTRUCTOR Nusrat Alegre APRN-CABLE FERRY OPERATOR LAB - POINT OF CAR E ORDERABLES [facility] POCT TESTING [address] [phone] * SKIN TEST PPD - POINT OF CARE (09/14/2018) PPD 0 mm Comment:Negative Other MISCELLANEOUS SAMPLE S / Unknown 09/14/2018 Narrative IngridionMela schultz - 09/14/2018 3:18 PM CDT No redness, No induration on 09/14/18 when Thalia Esposito returned for PPD reading. Estephania ANDERS LAB - POINT OF CARE ORDERABLES * TUBERCULOSIS (PPD) INTRADERMAL (09/11/2018) 09/11/2018 Narrative Mela Dodson - 09/14/2018 3:13 PM CDT PPD placed on 09/11/18 and read on 09/14/18. Negative, no redness or induration. 0mm. Estephania ANDERS IMM-I [place] ORDERABLES * MONITOR STRIP (01/10/2018 1:04 PM CDT) Narrative 01/10/2018 1:04 PM CDT Ordered by an unspecified provider. Scanned Document SCANNING ONLY * (ABNORMAL) MEDICAL ASSEMBLY ANTIBODY (12/05/2017 2:23 PM CDT) Only the most recent of6 resultswithin the time period is included. MEDICAL ASSEMBLY Antibody 6.6 POS(A) <1.0 NEG [facility] [employer] Comment: Test Performed at: [facility] [address] [place] [address] WESLEY ARAUJO DO,MPH Blood BLOOD SPECIMEN / Unknown 12/05/2017 2:23 PM CDT 12/05/2017 2:25 PM CDT Jana Saenz DO LAB - CHEMISTRY TOSHIA POPE [employer] [address] [place] [address] * SS-B (SJOGRENS'S) ANTIBODY (12/05/2017 2:23 PM CDT) Only the most recent of5 resultswithin the time period is included. Sjogren's Antibodies (SSB) <1.0 NEG <1.0 NEG [employer] Comment: REPORT COMMENT: FASTING:NO Test Performed at: [facility] [id number] [address] WESLEY ARAUJO DO,MPH Blood BLOOD SPECIMEN / Unknown 12/05/2017 2:23 PM CDT 12/05/2017 2:25 PM CDT Jana Chaudharigail [facility] - CHEMISTRY TOSHIA POPE Performing Organization Address [facility] [place] [address] * (ABNORMAL) SS-A (SJOGREN'S) ANTIBODY (12/05/2017 2:23 PM CDT) Only the most recent of5 resultswithin the time period is included. Sjogren's Antibodies (SSA) >8.0 POS(A) <1.0 NEG [facility] Comment: Test Performed at: [place] [address] WESLEY ARAUJO DO,MPH Blood BLOOD SPECIMEN / Unknown 12/05/2017 2:23 PM CDT 12/05/2017 2:25 PM CDT Jana Chaudharigail [facility] - CHEMISTRY TOSHIA POPE Performing Organization Address [facility] [place] [address] * MONITOR STRIP (10/27/2017 9:45 AM CDT) Narrative 10/27/2017 9:45 AM CDT Ordered by an unspecified provider. Scanned Document SCANNING ONLY * MONITOR STRIP (10/27/2017 9:45 AM CDT) Narrative 10/27/2017 9:45 AM CDT Ordered by an unspecified provider. Scanned Document SCANNING ONLY * HEPARIN ANTI-XA LMWH (10/02/2017 9:38 AM CDT) Heparin Anti Xa (LMWH) See Scanned Report 10/02/2017 1:45 PM CDT [facility] REF LAB NON INTERF Blood BLOOD SPECIMEN / Unknown Lab Venipuncture / Unknown 10/02/2017 9:38 AM CDT 10/02/2017 9:46 AM CDT Garrick Farley MD LAB - SEROLOGY ORDER HEATHER [facility] REF LAB NON INTERF [address] [place] [address] * NEURAXIAL BLOCK (09/29/2017 10:53 AM CDT) Narrative Tiera Capps MD - 09/29/2017 10:53 AM CDT Pat Hirsch APRN-ORTHOPEDIC SHOES SALESPERSON 09/28/2017 2:30 AM Neuraxial Block Note Procedure Name: Neuraxial Block Patient Location: OB Pre-Procedure: Indications: at patient's request Pre-Anesthetic Checklist: Patient identified, IV Checked, Risks and benefits discussed, Surgical consent verified, Monitors and equipment, Site examined, Pre-op evaluation done, Time-out performed, Informed consent obtained, Questions answered/anesthesia questions answered and Allergies reviewed Anticoagulation/ Anti-thrombosis status confirmed? Yes (Utilized recommended timeframe per ASA after lovenox and heparin dosing. ) Monitors: BP, continuous pluse ox, EKG and End tidal CO2 Patient Condition: awake Patient Position: sitting Procedure: Block Type: Epidural Prep: Betadine Sterile Field: mask, cap/hat, sterile established and sterile gloves Approach: midline Skin localized with: lidocaine 1%, 3 mL Epidural Block: Is this procedure for postop pain? No Needle Type: Tuohy Needle gauge: 18 G Needle length: 90 mm Placement Site: L3-L4 Number of Attempts: 1 Loss of Resistance: 5 saline Catheter length at skin (cm): 12 CSF Aspirated from catheter: No Blood Aspirated: No Test Dose: lidocaine 1.5% with 1-200,000 epinephrine 3 mL at 09/28/2017 2:06 AM Test Dose Response: No Epidural Infusion Medications: Ropivacaine: 0.2% with Fentanyl 2mcg/mL in NS , 150 cc (mL) at 10 mL/hr Degree of difficulty: none Procedure Tolerance: tolerated well Sensory Level: T6 Position post procedure: left uterine displacement Vital Signs: Vital signs moniitored and stable throughout. See nursing vitals flowsheet for details. Start Time: 09/28/2017 2:00 AM End Time: 09/28/2017 2:06 AM Total Time: 6 Staff: Anesthesia Provider: PAT HIRSCH performed the procedure Additional Notes: Patient understood indications and complications of epidural placement. Patient and family in room had no further questions about epidural placement before procedure started. Patient coached through steps of epidural placement and tolerated procedure well. Good LAI felt and epidural placed through 18g tuohy needle without pain or parasthesia. Patient indicated test dose negative of circumoral numbness, tinnitus or increased HR/BP at time noted. Tiera Capps MD GENERAL ANESTHESIA ORDERABLES * (ABNORMAL) BLOOD GASES CORD SEVERIANO (ISTAT) (09/29/2017 6:00 AM CDT) pH Cord Venous POCT 7.29 7.28 - 7.40 pH 09/29/2017 6:54 AM T [facility] pCO2 Cord Venous POCT 35 35 - 45 mmHg 09/29/2017 6:54 AM [facility] pO2 Cord Venous POCT 28 22 - 33 mmHg 09/29/2017 6:54 AM CDT [facility] HCO3 Cord Arterial POCT 17(L) 22 - 24 mmol/L 09/29/2017 6:54 AM T [facility] BE Cord Venous POCT Calc -9(L) -6.4 - 1.6 mmol/L 09/29/2017 6:54 AM T [facility] TCO2 Cord Venous POCT 18(L) 22 - 30 mmol/L 09/29/2017 6:54 AM [facility] O2 Saturation % Cord Venous Calc POCT 47 % 09/29/2017 6:54 AM CDT [facility] Site CORD SEVERIANO 09/29/2017 6:54 AM T [facility] Sample iSTAT CORD V 09/29/2017 6:54 AM [facility] Blood CORD BLOOD SPECIMEN / Unknown 09/29/2017 6:00 AM CDT 09/29/2017 6:54 AM CDT Garrick Farley MD LAB - POINT OF CARE ORDERABLES [facility] [address] [place] [address] * PREPARE (CROSSMATCH) RBC UNIT(S), 2 Units (09/28/2017 7:45 PM CDT) Product Code [id number] [facility] Unit Donor # [id number] S [facility] ABO Donor Type A [facility] Rh Type Unit NEG [facility] LAB Unit Status Ret'd HC BLO OD BANK LAB ABO Rh Type Unit ANEG [facility] Donor Unit Expiration Date [facility] Blood Type Barcode 0600 [facility] Product Code [id number] [facility] Unit Donor # [id number] [facility] BLOOD [facility] LAB ABO Donor Type A [facility] Rh Type Unit NEG HC BL OOD BANK LAB Unit Status Ret'd HC BLO OD BANK LAB ABO Rh Type Unit ANEG [facility] Donor Unit Expiration Date [facility] Blood Type Barcode 0600 [facility] Product Code [id number] [facility] Unit Donor # [id number] S [facility] BLOOD BANK LAB ABO Donor Type A [facility] Rh Type Unit NEG HC BL OOD BANK LAB Unit Status Ret'd [facility] OD [facility] ABO Rh Type Unit ANEG [facility] Donor Unit Expiration Date [facility] Blood Type Barcode 0600 [facility] Blood Bank BLOOD SPECIMEN / Unknown 09/28/2017 7:45 PM CDT Wesley Buck MD LAB - BLOOD BANK ORD ERABLES [facility] [address] [phone] * MD BIOPHYSICAL PROFILE, US OB LIMITED (09/27/2017 10:20 AM CDT) Anatomical Region Laterality Modality Abdomen, Pelvis Ultrasound Narrative 09/27/2017 10:20 AM CDT Alpa Fernandes 09/27/2017 10:20 AM Ready in [employer]. Alpa Fernandes Maile Mclain MD US ORDERABLES * MD SONO FU OR REPEAT, US BIOPHYSICAL PROFILE W/ NST (09/21/2017 2:48 PM CDT) Only the most recent of5 resultswithin the time period is included. Anatomical Region Laterality Modality Pelvis Ultrasound Narrative 09/21/2017 2:48 PM CDT Renae Devine 09/20/2017 8:55 AM Documentation in [employer]isonics Procedure Note Renae Devine - 09/20/2017 8:55 AM CDT Documentation in [employer] Cami Mendoza MD TOSHIA POPE * CULTURE STREP B (09/20/2017 9:00 AM CDT) [facility] Comment: STREPTOCOCCUS, GROUP B CULTURE MICRO NUMBER: [id number] TEST STATUS: FINAL SPECIMEN SOURCE: ANORECTUM/VAGINA SPECIMEN QUALITY: ADEQUATE RESULT: No group B Streptococcus isolated Note per CDC guidelines optimal recovery is achieved by swabbing both the lower vagina and rectum (through the anal sphincter). Test Performed at: [facility] [address] LUNA BARRAZA MD Microbiology MISCELLANEOUS SAMPLES / Unknown 09/20/2017 9:00 AM CDT 09/21/2017 3:09 AM CDT Cami Mendoza MD LAB - M ICROBIOLOGY ORDERABLES [address] [address] * MONITOR STRIP (09/15/2017 12:34 PM CDT) Narrative 09/15/2017 12:34 PM CDT Ordered by an unspecified provider. Scanned Document SCANNING ONLY * MONITOR STRIP (09/15/2017 12:34 PM CDT) Narrative 09/15/2017 12:34 PM CDT Ordered by an unspecified provider. Scanned Document SCANNING ONLY * MONITOR STRIP (09/14/2017 12:01 PM CDT) Narrative 09/14/2017 12:01 PM CDT Ordered by an unspecified provider. Scanned Document SCANNING ONLY * MONITOR STRIP (09/14/2017 10:45 AM CDT) Narrative 09/14/2017 10:45 AM CDT Ordered by an unspecified provider. Scanned Document SCANNING ONLY * MONITOR STRIP (09/14/2017 10:38 AM CDT) Narrative 09/14/2017 10:38 AM CDT Ordered by an unspecified provider. Scanned Document SCANNING ONLY * MONITOR STRIP (09/13/2017 11:43 AM CDT) Narrative 09/13/2017 11:43 AM CDT Ordered by an unspecified provider. Scanned Document SCANNING ONLY * MONITOR STRIP (09/13/2017 11:37 AM CDT) Narrative 09/13/2017 11:37 AM CDT Ordered by an unspecified provider. Scanned Document SCANNING ONLY * MICROALBUMIN URINE RANDOM (09/05/2017 2:01 PM CDT) [facility] Signature Microalbumin Urine 0.7 mg/dL [facility] Comment: Reference Range Not established SISI See Below [facility] Comment: The ADA defines abnormalities in albumin excretion as follows: Category Result (mcg/mg creatinine) Normal <30 Microalbuminuria 30-299 Clinical albuminuria > OR = 300 The ADA recommends that at least two of three specimens collected within a 3-6 month period be abnormal before considering a patient to be within a diagnostic category. REPORT COMMENT: SPLIT 09/05/2017 FROM [id number] Test Performed at: [facility] [address] [place] [address] WESLEY ARAUJO DO,MPH Urine URINE SPECIMEN OBTAINED BY CLEAN CATCH PROCEDURE / Unknown 09/05/2017 2:01 PM CDT 09/05/2017 2:01 PM CDT Cami Mehta MD LAB - URINE CHEMI STRY ORDERABLES [facility] [address] [place] [address] * (ABNORMAL) COMPLEMENT TOTAL (09/05/2017 11:59 AM CDT) Only the most recent of6 resultswithin the time period is included. Complement Total CH50 >60(H) 31 - 60 U/mL [facility] Comment: REPORT COMMENT: PATIENT UNABLE TO VOID; ADVISED TO RETURN FOR COLLECTION. Test Performed at: [facility] [address] [place] [address] WESLEY ARAUJO DO,MPH Blood BLOOD SPECIMEN / Unknown 09/05/2017 11:59 AM CDT 09/05/2017 12:05 PM CDT Cami Mehta MD LAB - CHEMISTRY O RDERABLES [facility] [address] [place] [address] * MONITOR STRIP (08/28/2017 9:37 AM CDT) Narrative 08/28/2017 9:37 AM CDT Ordered by an unspecified provider. Scanned Document SCANNING ONLY * MONITOR STRIP (08/24/2017 12:39 PM CDT) Narrative 08/24/2017 12:39 PM CDT Ordered by an unspecified provider. Scanned Document SCANNING ONLY * MD SONO FU OR REPEAT, MD SONO HEART F/U (08/23/2017 3:22 PM CDT) Narrative Alpa Fernandes - 08/23/2017 3:22 PM CDT Alpa Fernandes 08/23/2017 3:22 PM Ready in [employer]. Alpa Fernandes Maile Mclain MD PROCEDURE/MINOR SURG ICAL ORDERABLES * PROC US ECHO W/2D IMAGE, W/WO M MODE (08/09/2017 10:52 AM CDT) Narrative Kimberly Grigsby - 08/09/2017 10:52 AM CDT Kimberly Grigsby 08/09/2017 10:52 AM Ready in [employer]. Maile Mclain MD PROCEDURE/MINOR SURG ICAL ORDERABLES * PROC US ECHO W/2D IMAGE, W/WO M MODE (08/09/2017) Maile Mclain MD PROCEDURE/MINOR SURG ICAL ORDERABLES * US OB LIMITED (07/24/2017 10:53 AM CDT) Narrative AdrianivoneKimberly saucedo Eric - 07/24/2017 10:53 AM CDT AdrianivoneKimberly Eric 07/24/2017 10:53 AM Ready in [employer]. Procedure Note Kimberly Grigsby Eric - 07/24/2017 10:52 AM CDT Ready in [employer]. Maile Mclain MD PROCEDURE/MINOR SURG ICAL ORDERABLES * PROC US ECHO W/2D IMAGE, W/WO M MODE (07/24/2017) Maile Mclain MD PROCEDURE/MINOR SURG ICAL ORDERABLES * MD OB US, LIMITED, FETUS(S) (07/17/2017 2:09 PM CDT) Narrative AdrianolgaKimberly Eric - 07/17/2017 2:09 PM CDT AdrianivoneKimberly Eric 07/17/2017 2:09 PM Ready in [employer]. Procedure Note Kimberly Grigsby Eric - 07/17/2017 10:49 AM CDT Ready in [employer]. Maile Mclain MD PROCEDURE/MINOR SURG ICAL ORDERABLES * HIV-1 HIV-2 ANTIGEN/ANTIBODY (07/12/2017 10:34 AM CDT) Only the most recent of2 resultswithin the time period is included. HIV Antigen/Antibody 4th Generation NON-REACT JAVAD NON-REACT JAVAD [facility] ([facility]) Comment: HIV-1 antigen and HIV-1/HIV-2 antibodies were not detected. There is no laboratory evidence of HIV infection. PLEASE NOTE: This information has been disclosed to you from records whose confidentiality may be protected by state law. If your state requires such protection, then the state law prohibits you from making any further disclosure of the information without the specific written consent of the person to whom it pertains, or as otherwise permitted by law. A general authorization for the release of medical or other information is NOT sufficient for this purpose. For additional information please refer to http://education.Fast Society/faq/DHR623 (This link is being provided for informational/ educational purposes only.) The performance of this assay has not been clinically validated in patients less than 2 years old. Test Performed at: [facility] [address] [place] [address] WESLEY ARAUJO DO,MPH 07/12/2017 10:3 4 AM CDT 07/12/2017 10:35 AM CDT Nicolas Soto MD LAB - HEMATOLOGY ORD ERABLES Performing Organization Address [facility] de Phone Number [facility] ([facility]) [address] * RPR W REFLEX CONFIRM (07/12/2017 10:34 AM CDT) RPR NON-REACTI VE NON-REACT JAVAD [facility] ([facility]) Comment: REPORT COMMENT: PREFERRED LAB:->[facility] FASTING:YES Test Performed at: [facility] [address] [place] [address] WESLEY ARAUJO DO,MPH 07/12/2017 10:3 4 AM CDT 07/12/2017 10:35 AM CDT Nicolas Soto MD LAB - CHEMISTRY ORDE RABYVONNE Performing Organization Address [facility] de Phone Number [facility] ([facility]) [address] * ECHO CONSULT - (06/19/2017 10:14 AM CDT) 06/19/2017 10:1 4 AM CDT Narrative Procedure Note Mela Yeh MD - 06/19/2017 [facility] [place] [phone] Fax Echocardiogram Report Pat.Name: THALIA ESPOSITO Pat.ID: [id number] .Date: 06/19/2017 Exam Time: 10:14:00 AM Study Type: Echo Age: 4 1990,27Y Sex: FEMALE Sonogrphr: NARCISO Alonso. Stat.:Outpatient Reason for Study: arrhythmia Visit ID: [id number] SUMMARY: Study Data: GA: 22/3 weeks. NATANAEL: 10/20/2017 . : 1. Para: 0. Type: [place]. Lie: Vertex. Impression: The echocardiogram was within normal limits; however small atrial and ventricular septal defects and persistent ductus arteriosus cannot be excluded as findings. MD interval average 126 msec, 50th percentile norm is 121 msec. No ectopic beats. A single episode of bradycardia with scanning, resolves with maternal repositioning. Findings: Anatomic Relationships: Left sided cardiac apex (levocardia). There is normal visceral-cardiac situs, and normal segmental cardiac anatomical relationship. Systemic Veins: There is normal systemic venous return. Pulmonary Veins: The visualized pulmonary veins drain normally to the left atrium. Right Atrium: The right atrial size is normal. Left Atrium: The left atrial size is normal. Atrial Septum: Patent foramen ovale is seen with the foramen flap bowing from right to left and color flow is right to left. Tricuspid Valve: The tricuspid valve is structurally normal. The inflow pattern is normal. Tricuspid velocity is within the normal range. There is no regurgitation present. Mitral Valve: The mitral valve is structurally normal. The inflow pattern is normal. Mitral velocity is within the normal range. There is no regurgitation present. Right Ventricle: The cavity size is normal. The wall thickness is normal. The systolic function is normal. RV Outflow Tract: The outflow tract is normal. Left Ventricle: The cavity size is normal. The wall thickness is normal. The systolic function is normal. LV Outflow Tract: The outflow tract is normal. Ventricular Septum: There is no defect with no shunting. Pulmonary Valve: Leaflets exhibited normal mobility. The transpulmonic velocity is within the normal range. There is no regurgitation present. Aortic Valve: Leaflets exhibited normal mobility. The transaortic velocity is within the normal range. There is no regurgitation present. Pulmonary Artery: The MPA is normal with confluent branch pulmonary arteries. Aorta: aortic arch visualized and is without obstruction by 2D, color flow and Doppler. Ductus Arteriosus: The antegrade flow velocity and pattern in the ductal arch is normal. A normal ductus arteriosus is appreciated. Hydrops Assessment: No pericardial effusion. No evidence of ascites or pleural effusion. Rhythm: The rhythm is normal. There is 1:1 AV conduction. Dopplers: Flow in the ductus venosus is normal. The umbilical vein flow pattern is normal. The umbilical artery flow pattern is normal. MEASUREMENTS: DOPPLER Mitral Valve MV pkE 0.2 m/s MV E/A 0.5 no unit MV pkA 0.4 m/s Tricuspid Valve TV pkE 0.4 m/s TV E/A 0.8 no unit TV pkA 0.5 m/s Pulmonic Valve PV pkVel -0.8 m/s MD Interval MD Interval 137 ms Signed 06/19/2017 11:52 AM Mela Yeh MD Mela Yeh MD ECHO ORDERABLE S Performing Organization Address City/[facility]/ZIP Co de Phone Number [facility] [address] [place] [address] * PATHOLOGY/GENETICS HISTORICAL-ONBASE (06/06/2017) 06/06/2017 Historical Provider LAB - CHEMISTRY O RDERABLES Performing Organization Address City/[facility]/ZIP Co de Phone Number [facility] [address] [place] [address], [facility] * FUNGUS MARION - POINT OF CARE (AMB) [facility] (06/06/2017) MARION Prep positive [facility] Comment:budding paeudohyphae Vaginal swab (specimen) 06/06/2017 Oriana Stringer MD LAB - POINT OF CARE ORDERABLES Performing Organization Address [facility]/ZIP Co de Phone Number [facility] [address] [place] [address], [facility] * PAP IMAGE-GUIDED LIQUID BASE W HPV (06/06/2017 12:00 AM ACTING INSTRUCTOR) Pap Image-Guided Liquid-Based with HPV Accession No: [id number] Specimen:Endocervi betito ThinPrep Slides:1 SPECIMEN ADEQUACY: SATISFACTORY FOR EVALUATION - Endocervical / Transformation Zone Component Present INTERPRETATION: NEGATIVE FOR INTRAEPITHELIAL LESION OR MALIGNANCY OTHER FINDINGS: - Predominance of coccobacilli consistent with a shift in vaginal nenita - Fungal organisms morphologically consistent with Tess species NOTE(S): HPV DIRECT - HPV result to follow in separate report Interpretation performed by Starr SOTO (ASCP). Electronically signed 06/07/2017 [facility] Endocervical 06/06/2017 06/07/2017 11:41 AM ACTING INSTRUCTOR Oriana Stringer MD LAB - PATHOLOG Y/CYTOLOGY ORDERABLES Performing Organization Address [facility]/ZIP Co de Phone Number [facility] [address] [phone] * ALPHA FETOPROTEIN BLOOD MATERNAL QUAD PANEL (05/29/2017 1:44 PM ACTING INSTRUCTOR) Interpretation [facility] ([facility]) Comment: Screen negative for open NTD, Down syndrome and Trisomy 18. MSAFP Risk Open NTD 1 IN 1210 [facility] ([facility]) Age Risk Down Syndrome 1 IN 1044 [facility] ([facility]) Quad Risk Down Syndrome <1 IN 5000 [facility] ([facility]) MSS3 Trisomy 18 Risk <1 IN 5000 [facility] ([facility]) MSAFP 71.7 ng/mL [facility] ([facility]) Adjusted Multiple of Median 1.46 [facility] ([facility]) Estriol Unconjugated 1.88 ng/mL [facility] ([facility]) Adjusted Multiple of Median 1.19 [facility] ([facility]) Beta-hCG Total Quantitative 38.82 IU/mL [facility] ([facility]) Adjusted Multiple of Median 1.99 [facility] ([facility]) Inhibin A 229 pg/mL [facility] ([facility]) Adjusted Multiple of Median 1.33 [facility] ([facility]) Comment [facility] ([facility]) Comment: This patient's NATANAEL (estimated date of delivery) was used to calculate the gestational age. Performance of maternal serum AFP, hCG, estriol, and dimeric inhibin A provides a useful screening test for detection of open neural tube defects and some chromosomal abnormalities. It should be noted that normal results can never guarantee the of a normal baby and that 2 to 3 percent of newborns have some type of physical or mental defect, many of which are undetectable through any known diagnostic technique. See Note See Below [facility] ([facility]) Comment: This is a screening test, not a diagnostic test. No reagent system establishing the risk of chromosome abnormalities during has been approved by the FDA. This risk assessment report is based in part on demographic data provided by the ordering physician. It has been observed that patients who smoke cigarettes during may have a slightly increased risk of having a false positive NOEL screen for Down syndrome or trisomy 18. Please notify the laboratory promptly if any data are incorrect. For assistance with recalculations, please call your local [facility] laboratory. For assistance with interpretation of these results, please contact your local [facility] genetic counselor or call [phone]). Interpretive Cut-offs Screen Positive For Open NTD: > or = 2.50 adjusted MOM > or = 1.90 adjusted MOM for Insulin-dependent diabetics > or = 4.00 adjusted MOM for Twins > or = 3.50 adjusted MOM for Twins insulin-dependent Diabetics > or = 4.50 adjusted MOM for Triplets Screen Positive For Down Syndrome: QUAD Risk Down Syndrome that equals or exceeds 1 in 270 Screen Positive For Trisomy 18: MSS3 Trisomy 18 Risk that equals or exceeds 1 in 100 Gestational Age 19.4 weeks [facility] ([facility]) Maternal Weight 162 lbs [facility] ([facility]) Estimated Date of Delivery 10/20/2017 [facility] ([facility]) NATANAEL Determined By ULTRASOUND [facility] ([facility]) Mother's Ethnic Origin [facility] ([facility]) Number of Fetuses 1 [facility] ([facility]) Insulin Dependent Diabetic NO [facility] ([facility]) Repeat Specimen NO [facility] ([facility]) History of Neural Tube Defects NO [facility] ([facility]) History of Down Syndrome NO [facility] ([facility]) Donor Egg NO [facility] ([facility]) Donor Age or NOT GIVEN [facility] ([facility]) Cigarette Smoker NO [facility] ([facility]) Comment: REPORT COMMENT: GESTATIONAL AGE->16; EDC 10/20/17; PATIENT WEIGHT->162; * Test Performed at: [facility] [address] [place] [address] WESLEY ARAUJO DO,MPH 05/29/2017 1:44 PM ACTING INSTRUCTOR 05/29/2017 1:46 PM ACTING INSTRUCTOR Narrative [facility] ([facility]) - 05/30/2017 1:00 PM ACTING INSTRUCTOR Gestational Age->16 EDC 10/20/17 Patient Weight->162 lb Date Gestational Age Calculated?->05/09/17 NATANAEL Determined by->Ultrasound Mother's Ethnic Origin->Cauc[place] Number of Fetuses->1 Insulin Dependent Diabetic Mellitus->No Repeat Specimen?->No Family History of Neural Tube Defect->No Previous history of Down Syndrome?->No Donor Egg->No Garrick Farley MD LAB - CHEMISTRY TOSHIA POPE [facility] ([facility]) [address] * (ABNORMAL) PROTEIN CREATININE RATIO URINE TIMED PNL (05/29/2017 1:40 PM ACTING INSTRUCTOR) Creatinine 24 Hour Urine 1.48 0.63 - 2.50 g/24 h [facility] ([facility]) Protein 24 Hour Urine 104(H) < OR = 84 mg/g creat [facility] ([facility]) Protein 24 Hour Urine 154(H) <150 mg/24 h [facility] ([facility]) Comment: TOTAL URINE VOLUME: 700/24 Test Performed at: [email or web address] [place] [address] WESLYE ARAUJO DO,MPH Urine specimen (specimen) 05/29/2017 1:40 PM ACTING INSTRUCTOR 05/29/2017 1:42 PM ACTING INSTRUCTOR Garrick Farley MD LAB - URINE CHEMISTR Y ORDERABLES Performing Organization Address [facility]/RUST Co de Phone Number [facility] ([facility]) [address] * (ABNORMAL) CREATININE CLEARANCE URINE TIMED + BLOOD (05/29/2017 1:40 PM ACTING INSTRUCTOR) Only the most recent of2 resultswithin the time period is included. Creatinine 0.44(L) 0.50 - 1.10 mg/dL [facility] ([facility]) eGFR non- 140 > OR = 60 mL/min/1.7 3m2 [facility] ([facility]) eGFR 163 > OR = 60 mL/min/1.7 3m2 [facility] ([facility]) Creatinine 24 Hour Urine 1.48 0.63 - 2.50 g/24 h [facility] ([facility]) Body Surface Area 1.75 [facility] ([facility]) Creatinine Clearance 232(H) 75 - 115 mL/min [facility] ([facility]) Patient Height 5 ft [facility] ([facility]) Patient Height (Inches) 2 in [facility] ([facility]) WEIGHT POUNDS (SLH) 162 [facility] ([facility]) Comment: Test Performed at: [facility] [address] [place] [address] WESLEY ARAUJO DO,MPH Urine specimen (specimen) URINE SPECIMEN OBTAINED BY CLEAN CATCH PROCEDURE / Unknown 05/29/2017 1:40 PM ACTING INSTRUCTOR 05/29/2017 1:42 PM ACTING INSTRUCTOR Narrative [facility] ([facility]) - 05/31/2017 3:00 PM ACTING INSTRUCTOR Height (inches)->62 Weight (lbs)->162 Garrick Farley MD LAB - URINE CHEMISTR Y ORDERABLES Performing Organization Address [facility]/ZIP Co de Phone Number CLARA ([facility]) [address] * CHLAMYDIA+GC DAT PAP VIAL (05/10/2017 12:27 PM ACTING INSTRUCTOR) Chlamydia trachomatis RNA TMA NOT DETECTED NOT DETECTED [facility] ([facility]) Neisseria gonorrhoeae RNA TMA NOT DETECTED NOT DETECTED [facility] ([facility]) See Note [facility] ([facility]) Comment: This test was performed using the APTIMA COMBO2 Assay ([employer] The analytical performance characteristics of this assay, when used to test SurePath specimens have been determined by [facility]. Test Performed at: [facility] [place] [address] [facility] [place] [address] WESLEY ARAUJO DO,MPH 05/10/2017 12:2 7 PM ACTING INSTRUCTOR 05/11/2017 12:39 AM ACTING INSTRUCTOR Garrick Farley MD LAB - MICROBIOLOGY O RDERABLES Performing Organization Address City/[facility]/ZIP Co de Phone Number [facility] ([facility]) [address] [place] [address] * DNA ANTIBODY DS CRITHIDIA IFA (04/26/2017 1:43 PM ACTING INSTRUCTOR) Only the most recent of8 resultswithin the time period is included. dsDNA Antibody Crithidia IFA NEGATIVE NEGATIVE [facility] ([facility]) Comment: REPORT COMMENT: STANDING ORDER FOR 6 MONTHS, EVERY 2-6 WEEKS; COPY TO PCP, P Test Performed at: [facility] [address] [place] [address] SONAM WAHL MD PHD 04/26/2017 1:43 PM ACTING INSTRUCTOR 04/26/2017 1:43 PM ACTING INSTRUCTOR Bob Varma MD LAB - SEROLOGY ORDER HEATHER Performing Organization Address [facility]/RUST Co de Phone Number [facility] ([facility]) [address] [place] [address] * TRANSFERRIN (05/08/2016 6:20 AM ACTING INSTRUCTOR) Only the most recent of5 resultswithin the time period is included. Transferrin 267 174 - 382 mg/dL [facility] Transferrin Saturation % 16 16 - 50 % [facility] Blood specimen (specimen) BLOOD SPECIMEN / Unknown 05/08/2016 6:20 AM ACTING INSTRUCTOR 05/08/2016 6:54 AM ACTING INSTRUCTOR Trudy Patel MD LAB - CHEMISTRY TOSHIA POPE Performing Organization Address City/[facility]/ZIP Co de Phone Number [facility] [address] [place] [address] * IRON BLOOD (05/08/2016 6:20 AM ACTING INSTRUCTOR) Only the most recent of2 resultswithin the time period is included. Iron 52 40 - 150 mcg/dL [facility] Blood specimen (specimen) BLOOD SPECIMEN / Unknown 05/08/2016 6:20 AM ACTING INSTRUCTOR 05/08/2016 6:54 AM ACTING INSTRUCTOR Trudy Patel MD LAB - CHEMISTRY TOSHIA POPE Performing Organization Address [facility]/RUST Co de Phone Number [address] [phone] * FERRITIN (05/08/2016 6:20 AM ACTING INSTRUCTOR) Only the most recent of2 resultswithin the time period is included. Ferritin 55 13 - 204 ng/mL [facility] Blood specimen (specimen) BLOOD SPECIMEN / Unknown 05/08/2016 6:20 AM ACTING INSTRUCTOR 05/08/2016 6:54 AM ACTING INSTRUCTOR Trudy Patel MD LAB - CHEMISTRY TOSHIA POPE Performing Organization Address [facility]/[place]UST Co de Phone Number [address] [phone] * HCG URINE QUALITATIVE - POCT (IP) [facility] (05/07/2016 5:37 PM ACTING INSTRUCTOR) Only the most recent of7 resultswithin the time period is included. Pathologist [facility] Test Urine negative [facility] Urine specimen (specimen) 05/07/2016 5:37 PM ACTING INSTRUCTOR Norma Devine MD LAB - POINT OF CARE ORDERABLES Performing Organization Address [facility]/[place] Co de Phone Number [facility] * (ABNORMAL) DNA (DS) ANTIBODY RFLEX IFA (01/18/2016 2:33 PM CDT) Only the most recent of3 resultswithin the time period is included. Pathologist [facility] dsDNA Antibody 78(H) 0 - 29 IU/mL [facility] Comment: dsDNA Antibody Numeric Result Interpretation: 0 - 29 IU/mL: Negative 30 - 75 IU/mL: Borderline >75 IU/mL: Positive Blood specimen (specimen) BLOOD SPECIMEN / Unknown 01/18/2016 2:33 PM CDT 01/18/2016 3:34 PM CDT Bob Varma MD LAB - SEROLOGY ORDER HEATHER Performing Organization Address City/[facility]/[place]UST Co de Phone Number [facility] [address] [place] [address] * DNA ANTIBODY DS CRITHIDIA TITER (01/18/2016 2:33 PM CDT) Only the most recent of6 resultswithin the time period is included. dsDNA Antibody IgG IFA <1:10 <1:10 [facility] (BEAKER) Comment: INTERPRETIVE INFORMATION: Double-Stranded DNA (dsDNA) Antibody, IgG by IFA (using Crithidia luciliae) Positivity for anti-double stranded DNA (anti-dsDNA) IgG antibody is a diagnostic criterion of systemic lupus erythematosus (SLE). The presence of the anti-dsDNA IgG antibody is identified by IFA titer (Crithidia luciliae indirect fluorescent test [OTILIO]). OTILIO is highly specific for SLE with a sensitivity of 50-60 percent. Some patients with early or inactive SLE may be positive for anti-dsDNA IgG by VERENICE but negative by OTILIO. If the OTILIO result is negative but the patient has a positive VERENICE and clinical suspicion remains, consider antinuclear antibody (JEAN-PAUL) testing by IFA. Additional information and recommendations for testing may be found at http://[email or web address]/Topics/[email or web address]/[email or web address] ndex.[email or web address]. Performed by [employer], [address] [place] [id number] [email or web address], Piyush Rabago MD, Lab. Director Blood specimen (specimen) BLOOD SPECIMEN / Unknown 01/18/2016 2:33 PM CDT 01/20/2016 8:44 AM CDT Bob Varma MD LAB - SEROLOGY ORDER HEATHER Performing Organization Address City/[facility]/ZIP Co de Phone Number [facility] (NER[facility]) * (ABNORMAL) LUPUS ERYTHEMATOSUS PANEL (12/03/2015 12:32 PM CDT) JEAN-PAUL Screen POSITIVE( A) NEGATIVE [facility] ([facility]) dsDNA Antibody 17(H) IU/mL [facility] ([facility]) Comment: IU/mL Interpretation < or = 4 Negative 5-9 Indeterminate > or = 10 Positive Sjogren's Antibodies (SSA) 6.8 POS(A) <1.0 NEG AI [facility] ([facility]) Sjogren's Antibodies (SSB) <1.0 NEG <1.0 NEG AI [facility] ([facility]) KARTHIKEYAN Rogers (SM) Antibody <1.0 NEG <1.0 NEG AI [facility] ([facility]) KARTHIKEYAN [employer]ICAL [employer]SEMBLY Antibody 8.0 POS(A) <1.0 NEG AI [facility] ([facility]) Chromatin Nucleosomal 7.5 POS(A) <1.0 NEG AI [facility] ([facility]) Complement C3 101 90 - 180 mg/dL [facility] ([facility]) Complement C4 10(L) 16 - 47 mg/dL [facility] ([facility]) Complement Total CH50 53 31 - 60 U/mL [facility] ([facility]) Comment: Test Performed at: [facility] [address] [place] [address] WESLEY ARAUJO DO,MPH 12/03/2015 12:3 2 PM CDT 12/03/2015 12:37 PM CDT Bob Varma MD LAB - SEROLOGY ORDER HEATHER Performing Organization Address [facility]/ZIP Co de Phone Number [facility]) * (ABNORMAL) JEAN-PAUL W/REFLEX IFA PATTERN (03/31/2015 4:54 PM ACTING INSTRUCTOR) JEAN-PAUL Positive(A ) None Detected [facility] Blood specimen (specimen) BLOOD SPECIMEN / Unknown 03/31/2015 4:54 PM ACTING INSTRUCTOR 03/31/2015 5:21 PM ACTING INSTRUCTOR Bob Varma MD LAB - SEROLOGY ORDER HEATHER [facility] [address] [phone] * BETA-2 GLYCOPROTEIN 1 ANTIBODY IGG (03/31/2015 4:54 PM ACTING INSTRUCTOR) Only the most recent of2 resultswithin the time period is included. Beta-2 Glycoprotein I Antibody IgG <20.0 <20.0 [facility] Blood specimen (specimen) BLOOD SPECIMEN / Unknown 03/31/2015 4:54 PM ACTING INSTRUCTOR 03/31/2015 5:20 PM ACTING INSTRUCTOR Bob Varma MD LAB - SEROLOGY ORDER HEATHER Performing Organization Address City/[facility]/ZIP Co de Phone Number [address] [phone] * BETA-2 GLYCOPROTEIN 1 ANTIBODY IGM (03/31/2015 4:54 PM ACTING INSTRUCTOR) Only the most recent of2 resultswithin the time period is included. Pathologist [facility] Beta-2 Glycoprotein Antibody IgM <20.0 <20.0 [facility] Blood specimen (specimen) BLOOD SPECIMEN / Unknown 03/31/2015 4:54 PM ACTING INSTRUCTOR 03/31/2015 5:20 PM ACTING INSTRUCTOR Bob Varma MD LAB - SEROLOGY ORDER HEATHER Performing Organization Address City/[facility]/ZIP Co de Phone Number [address] [phone] * QUANTIFERON TB-GOLD INC (03/31/2015 4:54 PM ACTING INSTRUCTOR) Pathologist [facility] QuantiFERON TB Gold Negative Negative [facility] ([facility]) Comment: The specimen received for QuantiFERON testing was incubated by the ordering institution. Specific procedures outlined in our Directory of Services and in the package insert for the QuantiFERON Gold (In Tube) test must be followed to enable for proper stimulation of cells for the production of interferon gamma. QuantiFERON Criteria Comment [facility] (BEAKER) Comment: To be considered positive a specimen should have a TB Ag minus Nil value greater than or equal to 0.35 IU/mL and in addition the TB Ag minus Nil value must be greater than or equal to 25% of the Nil value. There may be insufficient information in these values to differentiate between some negative and some indeterminate test values. QuantiFERON TB Antigen Value 0.07 IU/mL [facility] ([facility]) QuantiFERON Nil Value 0.06 IU/mL [facility] ([facility]) QuantiFERON Mitogen Value 5.02 IU/mL [facility] ([facility]) QFT TB Ag minus Nil Value 0.01 IU/mL [facility] ([facility]) Interpretation Comment [facility] ([facility]) Comment: The QuantiFERON TB Gold (in Tube) assay is intended for use as an aid in the diagnosis of TB infection. Negative results suggest that there is no TB infection. In patients with high suspicion of exposure, a negative test should be repeated. A positive test indicates infection with Mycobacterium tuberculosis. Among individuals without tuberculosis infection, a positive test may be due to exposure to M. kansasii, M. szulgai or M. marinum. On the Internet, go to cdc.gov/tb for further details. Blood specimen (specimen) BLOOD SPECIMEN / Unknown 03/31/2015 4:54 PM ACTING INSTRUCTOR 03/31/2015 5:19 PM ACTING INSTRUCTOR Narrative [facility] ([facility]) - 04/03/2015 6:09 AM ACTING INSTRUCTOR Performed at: [address] [place] [id number] Skilled Nursing Case Manager: Get Oglesby PhD, Phone: [phone] Bob Varma MD LAB - SEROLOGY ORDER HEATHER Performing Organization Address [facility]/[place]UST Co de Phone Number [facility]) * CARDIOLIPIN ANTIBODY IGA (03/31/2015 4:54 PM ACTING INSTRUCTOR) Only the most recent of2 resultswithin the time period is included. Anticardiolipin Antibody IgA <15.0 <15.0 APL [facility] Blood specimen (specimen) BLOOD SPECIMEN / Unknown 03/31/2015 4:54 PM ACTING INSTRUCTOR 03/31/2015 5:20 PM ACTING INSTRUCTOR Bob Varma MD LAB - SEROLOGY ORDER HEATHER Performing Organization Address City/[facility]/ZIP Co de Phone Number [address] [phone] * CARDIOLIPIN ANTIBODY IGM (03/31/2015 4:54 PM ACTING INSTRUCTOR) Only the most recent of2 resultswithin the time period is included. Anticardiolipin Antibody IgM <15.0 <15.0 MPL [facility] Blood specimen (specimen) BLOOD SPECIMEN / Unknown 03/31/2015 4:54 PM ACTING INSTRUCTOR 03/31/2015 5:20 PM ACTING INSTRUCTOR Bob Varma MD LAB - SEROLOGY ORDER HEATHER Performing Organization Address [facility]/[place]UST Co de Phone Number [address] [phone] * CARDIOLIPIN ANTIBODY IGG (03/31/2015 4:54 PM ACTING INSTRUCTOR) Only the most recent of2 resultswithin the time period is included. Anticardiolipin Antibody IgG <15.0 <15.0 GPL [facility] Blood specimen (specimen) BLOOD SPECIMEN / Unknown 03/31/2015 4:54 PM ACTING INSTRUCTOR 03/31/2015 5:20 PM ACTING INSTRUCTOR Bob Varma MD LAB - SEROLOGY ORDER HEATHER Performing Organization Address [facility]UST Co de Phone Number [address] [phone] * (ABNORMAL) HISTONE ANTIBODY (03/31/2015 4:54 PM ACTING INSTRUCTOR) Only the most recent of2 resultswithin the time period is included. Anti-Histone Antibody 5.4(H) 0.0 - 0.9 Units [facility] (BEAKER) Comment: Negative <1.0 Weak Positive 1.0 - 1.5 Moderate Positive 1.6 - 2.5 Strong Positive >2.5 Blood specimen (specimen) BLOOD SPECIMEN / Unknown 03/31/2015 4:54 PM ACTING INSTRUCTOR 03/31/2015 5:20 PM ACTING INSTRUCTOR Narrative [facility] (NERI) - 04/07/2015 1:14 PM ACTING INSTRUCTOR Performed at: [address] [place] [address] [id number] Skilled Nursing Case Manager: Wesley Mercer MD, Phone: [phone] Bob Varma MD LAB - CHEMISTRY TOSHIA ALVINOYVONNE Performing Organization Address City/[facility]/ZIP Co de Phone Number [facility] ([facility]) * SCLERODERMA 70 (SCL) ANTIBODY (03/31/2015 4:54 PM ACTING INSTRUCTOR) Only the most recent of4 resultswithin the time period is included. Pathologist [facility] SCL-70 Antibody 2.1 0.0 - 19.9 Units [facility] Comment: KARTHIKEYAN Antibody Numeric Result Interpretation: <20.0 Units: Negative 20.0 - 39.0 Units: Weakly Positive >39.0 Units: Positive Blood specimen (specimen) BLOOD SPECIMEN / Unknown 03/31/2015 4:54 PM ACTING INSTRUCTOR 03/31/2015 5:21 PM ACTING INSTRUCTOR Bob Varma MD LAB - CHEMISTRY TOSHIA POPE Performing Organization Address City/[facility]/ZIP Co de Phone Number [address] [phone] * (ABNORMAL) TY STAINING PATTERNS REFLEXED (03/31/2015 4:54 PM ACTING INSTRUCTOR) Pathologist [facility] Homogeneous Pattern 1:1280(H) [facility] ([facility]) Note Comment [facility] Blood specimen (specimen) BLOOD SPECIMEN / Unknown 03/31/2015 4:54 PM ACTING INSTRUCTOR 04/01/2015 10:22 AM ACTING INSTRUCTOR Narrative [facility] ([facility]) - 04/02/2015 3:12 PM ACTING INSTRUCTOR A positive JEAN-PAUL result may occur in healthy individuals or be associated with a variety of diseases. See interpre- tation below: Pattern Antigen Detected Suggested Disease Association Homogeneous DNA(ds,ss,), High titers - SLE (Smooth) Histone Speckled Sm, MEDICAL ASSEMBLY, SCL-70, SLE,MCTD,Scleroderma,Sjogrens SS-A/SS-B Nucleolar SCL-70, PM-1/SCL High titers Scleroderma Poly- myositis/Scleroderma Overlap Centromere Centromere PSS w/Crest syndrome variable Bob Varma MD LAB - PATHOLOGY/CYTO LOGY ORDERABLES [facility] ([facility]) * US TRANSVAGINAL NON OB (03/25/2015 4:07 PM ACTING INSTRUCTOR) Anatomical Region Laterality Modality Abdomen Other Impressions 03/26/2015 3:04 PM ACTING INSTRUCTOR IMPRESSION: 1. No evidence of ovarian torsion. 2. A 2.7 x 2.4 x 2.0 cm cystic lesion without internal flow in the left ovary corresponds to the lesion seen on CT. This is likely benign and may represent a hemorrhagic cyst. Follow up ultrasound in 6-8 weeks is recommended. Report dictated by Paula Lin M.D. This report was approved by Paula Lin M.D. on 03/26/2015 9:43 AM . I, Dr. REYMUNDO BRAVO M.D. have personally reviewed and interpreted this examination/study. This report was electronically signed by REYMUNDO BRAVO M.D. on 03/26/2015 3:04 PM . Narrative 03/26/2015 3:04 PM ACTING INSTRUCTOR EXAMINATION: 1. Transabdominal ultrasound of the pelvis 2. Transvaginal ultrasound of the pelvis HISTORY: 24-year-old female with abdominal pain and left adnexal cystic lesion. LMP 03/09/2015. FINDINGS: Comparison is made with CT abdomen/pelvis from 03/25/2015. Transabdominal: Uterus: 6.0 x 3.1 x 4.6 cm Right ovary: 3.6 x 1.6 x 2.1 cm Left ovary: 4.3 x 3.4 x 3.0 cm Transvaginal: Multiple follicles are visible in both ovaries. A 2.7 x 2.4 x 2.0 cm cystic lesion without internal flow in the left ovary corresponds to the lesion seen on CT. This is heterogenous in echogenicity with areas of cystic and solid components and may represent a hemorrhagic cyst. Blood flow is seen within the ovaries bilaterally. There is no evidence of ovarian torsion. The uterus appears normal. No uterine masses are seen. The endometrial bilayer thickness measures 8 mm, which is within normal limits . Trace free fluid is present in the cul-de-sac, likely physiologic. Procedure Note Reymundo Bravo MD - 07/08/2017 EXAMINATION: 1. Transabdominal ultrasound of the pelvis 2. Transvaginal ultrasound of the pelvis HISTORY: 24-year-old female with abdominal pain and left adnexal cysticlesion. LMP 03/09/2015. FINDINGS: Comparison is made with CT abdomen/pelvis from 03/25/2015. Transabdominal: Uterus: 6.0 x 3.1 x 4.6 cm Right ovary: 3.6 x 1.6 x 2.1 cm Left ovary: 4.3 x 3.4 x 3.0 cm Transvaginal: Multiple follicles are visible in both ovaries. A 2.7 x 2.4 x 2.0 cmcystic lesion without internal flow in the left ovary corresponds to thelesion seen on CT. This is heterogenous in echogenicity with areas ofcystic and solid components and may represent a hemorrhagic cyst. Blood flow is seen within the ovariesbilaterally. There is no evidence of ovarian torsion. The uterus appears normal. No uterine masses are seen. The endometrialbilayer thickness measures 8 mm, which is within normal limits . Tracefree fluid is present in the cul-de-sac, likely physiologic. IMPRESSION IMPRESSION: 1. No evidence of ovarian torsion. 2. A 2.7 x 2.4 x 2.0 cm cystic lesion without internal flow in the leftovary corresponds to the lesion seen on CT. This is likely benign and mayrepresent a hemorrhagic cyst. Follow up ultrasound in 6-8 weeks isrecommended. Report dictated by Paula Lin M.D. This report was approved by Paula Lin M.D. on 03/26/2015 9:43AM . Dr. REYMUNDO Gregg M.D. have personally reviewed and interpreted thisexamination/study. This report was electronically signed by REYMUNDO BRAVO M.D. on03/26/2015 3:04 PM . Sesar Bhat DO US ORDERABLES * US PELVIS COMPLETE (03/25/2015 4:07 PM ACTING INSTRUCTOR) Anatomical Region Laterality Modality Pelvis Other Impressions 03/26/2015 3:04 PM ACTING INSTRUCTOR IMPRESSION: 1. No evidence of ovarian torsion. 2. A 2.7 x 2.4 x 2.0 cm cystic lesion without internal flow in the left ovary corresponds to the lesion seen on CT. This is likely benign and may represent a hemorrhagic cyst. Follow up ultrasound in 6-8 weeks is recommended. Report dictated by Paula Lin M.D. This report was approved by Paula Lin M.D. on 03/26/2015 9:[address] REYMUNDO Gregg M.D. have personally reviewed and interpreted this examination/study. This report was electronically signed by REYMUNDO BRAVO M.D. on 03/26/2015 3:04 PM . Narrative 03/26/2015 3:04 PM ACTING INSTRUCTOR EXAMINATION: 1. Transabdominal ultrasound of the pelvis 2. Transvaginal ultrasound of the pelvis HISTORY: 24-year-old female with abdominal pain and left adnexal cystic lesion. LMP 03/09/2015. FINDINGS: Comparison is made with CT abdomen/pelvis from 03/25/2015. Transabdominal: Uterus: 6.0 x 3.1 x 4.6 cm Right ovary: 3.6 x 1.6 x 2.1 cm Left ovary: 4.3 x 3.4 x 3.0 cm Transvaginal: Multiple follicles are visible in both ovaries. A 2.7 x 2.4 x 2.0 cm cystic lesion without internal flow in the left ovary corresponds to the lesion seen on CT. This is heterogenous in echogenicity with areas of cystic and solid components and may represent a hemorrhagic cyst. Blood flow is seen within the ovaries bilaterally. There is no evidence of ovarian torsion. The uterus appears normal. No uterine masses are seen. The endometrial bilayer thickness measures 8 mm, which is within normal limits . Trace free fluid is present in the cul-de-sac, likely physiologic. Procedure Note Reymundo Bravo MD - 07/08/2017 EXAMINATION: 1. Transabdominal ultrasound of the pelvis 2. Transvaginal ultrasound of the pelvis HISTORY: 24-year-old female with abdominal pain and left adnexal cysticlesion. LMP 03/09/2015. FINDINGS: Comparison is made with CT abdomen/pelvis from 03/25/2015. Transabdominal: Uterus: 6.0 x 3.1 x 4.6 cm Right ovary: 3.6 x 1.6 x 2.1 cm Left ovary: 4.3 x 3.4 x 3.0 cm Transvaginal: Multiple follicles are visible in both ovaries. A 2.7 x 2.4 x 2.0 cmcystic lesion without internal flow in the left ovary corresponds to thelesion seen on CT. This is heterogenous in echogenicity with areas ofcystic and solid components and may represent a hemorrhagic cyst. Blood flow is seen within the ovariesbilaterally. There is no evidence of ovarian torsion. The uterus appears normal. No uterine masses are seen. The endometrialbilayer thickness measures 8 mm, which is within normal limits . Tracefree fluid is present in the cul-de-sac, likely physiologic. IMPRESSION IMPRESSION: 1. No evidence of ovarian torsion. 2. A 2.7 x 2.4 x 2.0 cm cystic lesion without internal flow in the leftovary corresponds to the lesion seen on CT. This is likely benign and mayrepresent a hemorrhagic cyst. Follow up ultrasound in 6-8 weeks isrecommended. Report dictated by Paula Lin M.D. This report was approved by Paula Lin M.D. on 03/26/2015 9:43AM . Dr. REYMUNDO Gregg M.D. have personally reviewed and interpreted thisexamination/study. This report was electronically signed by REYMUNDO BRAVO M.D. on03/26/2015 3:04 PM . Sesar Bhat DO US ORDERABLES * CT ABDOMEN PELVIS WO CONTRAST (03/25/2015 1:46 PM ACTING INSTRUCTOR) Only the most recent of3 resultswithin the time period is included. Anatomical Region Laterality Modality Abdomen, Pelvis Other Impressions 03/25/2015 2:37 PM ACTING INSTRUCTOR IMPRESSION: 1. Minimal fat stranding adjacent to the pancreatic tail is unchanged from 08/20/2014 and likely represents sequela of chronic pancreatitis. No peripancreatic fluid collection. 2. Mild retroperitoneal and pelvic lymphadenopathy, stable. Otherwise, no acute process in the abdomen or pelvis. 3. A 3.8 cm cystic lesion of the left adnexa measuring 2.8 cm with density higher and simple fluid. This could represent a hemorrhagic cyst and can be further evaluated with a pelvic sonogram in 6-12 weeks. Report dictated by Timur Tanner M.D. (Wheel Mill Operator) Dr. INEZ Gregg M.D. have personally reviewed and interpreted this examination/study. This report was electronically signed by INEZ LEUNG M.D. on 03/25/2015 2:37 PM . Narrative 03/25/2015 2:37 PM ACTING INSTRUCTOR EXAMINATION: Computed tomography (CT) of the abdomen and pelvis without contrast HISTORY: 24-year-old female with history of SLE and pancreatitis presenting with abdominal pain. TECHNIQUE: CT of the abdomen and pelvis was performed without intravenous contrast according to standard protocol. COMPARISON: Comparison is made with a prior CT body dated February 12, 2013 as well as an outside institution CT study of the abdomen and pelvis dated August 20, 2014. FINDINGS: Evaluation of visceral and vascular structures is limited due to lack of intravenous contrast. The visualized lung bases are clear. The heart size is normal. Trace pericardial effusion is present. Within the limitations of this noncontrasted study, the liver appears normal. No focal intrahepatic lesions are seen within the limitation of a non-contrast enhanced examination. The gallbladder is surgically absent. Surgical clip is also identified adjacent to the inferior edge of the right hepatic lobe segment 6. The intrahepatic and extrahepatic bile ducts are nondilated. The spleen is mildly enlarged measuring 14 cm in AP dimension. No peripancreatic fluid collection is identified. There is minimal fat stranding adjacent to the pancreatic tail which is unchanged from the prior outside study of 08/20/2014 and likely represents sequela of prior pancreatitis. No adrenal glands are normal. There are multiple small hypoattenuating lesions within the kidneys measuring up to 1 cm in the lower pole of the left kidney which could represent hemorrhagic cysts (series 6 image 83. There is no evidence of renal calculi, hydronephrosis, or hydroureter. The esophagus and stomach appear normal. The small bowel and large bowel are normal in caliber without evidence of wall thickening or obstruction. The appendix appears normal without appendicolith or surrounding inflammatory changes. A metallic clip along the anterior aspect of the rectum is unchanged. No free air or free fluid is identified within the abdomen. Multiple slightly prominent retroperitoneal lymph nodes are present measuring up to 1 cm in the right para-aortic region (image 67 of series 5). Mildly enlarged bilateral iliac chain lymph nodes are also present measuring up to 1.9 x 1.1 cm along the right external iliac chain (image 192, series 5) and 1.8 x 1.2 cm along the left external iliac chain (image 180, series 5). These are unchanged since the prior outside CT of 08/20/2014. Multiple subcentimeter mesenteric and inguinal lymph nodes are present. The bladder is nondistended and appears normal. The uterus is present. There is a cystic lesion of the left adnexa with density higher than simple fluid measuring approximately 2.8 cm (image 22, series 5). No free fluid is seen within the pelvis. The unenhanced abdominal aorta is normal in course and caliber. An inferior vena cava filter is again seen. Bone windows demonstrate no suspicious lytic or blastic lesions. The visible osseous structures are intact. Procedure Note Inez Leung MD - 07/08/2017 EXAMINATION: Computed tomography (CT) of the abdomen and pelvis withoutcontrast HISTORY: 24-year-old female with history of SLE and pancreatitispresenting with abdominal pain. TECHNIQUE: CT of the abdomen and pelvis was performed without intravenouscontrast according to standard protocol. COMPARISON: Comparison is made with a prior CT body dated February as well as an outside institution CT study of the abdomen and pelvisdated August 20, 2014. FINDINGS: Evaluation of visceral and vascular structures is limited due to lack ofintravenous contrast. The visualized lung bases are clear. The heart size is normal. Tracepericardial effusion is present. Within the limitations of this noncontrasted study, the liver appearsnormal. No focal intrahepatic lesions are seen within the limitation of anon-contrast enhanced examination. The gallbladder is surgically absent.Surgical clip is also identified adjacent to the inferior edge of the right hepatic lobe segment 6. Theintrahepatic and extrahepatic bile ducts are nondilated. The spleen ismildly enlarged measuring 14 cm in AP dimension. No peripancreatic fluidcollection is identified. There is minimal fat stranding adjacent to the pancreatic tail which is unchangedfrom the prior outside study of 08/20/2014 and likely represents sequela ofprior pancreatitis. No adrenal glands are normal. There are multiple smallhypoattenuating lesions within the kidneys measuring up to 1 cm in the lower pole of the left kidneywhich could represent hemorrhagic cysts (series 6 image 83. There is noevidence of renal calculi, hydronephrosis, or hydroureter. The esophagus and stomach appear normal. The small bowel and large bowelare normal in caliber without evidence of wall thickening or obstruction.The appendix appears normal without appendicolith or surroundinginflammatory changes. A metallic clip along the anterior aspect of the rectum is unchanged. No free air or freefluid is identified within the abdomen. Multiple slightly prominentretroperitoneal lymph nodes are present measuring up to 1 cm in the rightpara-aortic region (image 67 of series 5). Mildly enlarged bilateral iliac chain lymph nodes are alsopresent measuring up to 1.9 x 1.1 cm along the right external iliac chain(image 192, series 5) and 1.8 x 1.2 cm along the left external iliac chain(image 180, series 5). These are unchanged since the prior outside CT of 08/20/2014. Multiple subcentimetermesenteric and inguinal lymph nodes are present. The bladder is nondistended and appears normal. The uterus is present.There is a cystic lesion of the left adnexa with density higher thansimple fluid measuring approximately 2.8 cm (image 22, series 5). No freefluid is seen within the pelvis. The unenhanced abdominal aorta is normal in course and caliber. Aninferior vena cava filter is again seen. Bone windows demonstrate no suspicious lytic or blastic lesions. Thevisible osseous structures are intact. IMPRESSION IMPRESSION: 1. Minimal fat stranding adjacent to the pancreatic tail is unchanged from08/20/2014 and likely represents sequela of chronic pancreatitis. Noperipancreatic fluid collection. 2. Mild retroperitoneal and pelvic lymphadenopathy, stable. Otherwise, noacute process in the abdomen or pelvis. 3. A 3.8 cm cystic lesion of the left adnexa measuring 2.8 cm with densityhigher and simple fluid. This could represent a hemorrhagic cyst and canbe further evaluated with a pelvic sonogram in 6-12 weeks. Report dictated by Timur Tanner M.D. (Wheel Mill Operator) I, Dr. INEZ LEUNG M.D. have personally reviewed and interpreted thisexamination/study. This report was electronically signed by INEZ LEUNG M.D. on 03/25/20152:37 PM . Sesar A Perlita DO CT ORDERABLES * (ABNORMAL) DRUG ABUSE PANEL 10-20+ETHANOL URINE NO CONFIRM (03/25/2015 1:03 PM ACTING INSTRUCTOR) Amphetamines Screen Urine Negative Negative : < 1000 ng/mL [facility] Barbiturates Screen Urine Negative Negative : < 200 ng/mL [facility] Benzodiazepine Screen Urine Negative Negative : < 200 ng/mL [facility] Opiates Urine Negative Negative : < 300 ng/mL [facility] Cocaine Metabolites Urine Negative Negative : < 300 ng/mL [facility] Phencyclidine Screen Urine Negative Negative : < 25 ng/ml [facility] Cannabinoids Screen Urine Positive(A) Negative : <50 ng/mL [facility] Comment: Positive urine cannabinoids (THC) screening results should be confirmed by another generally accepted non-immunological method such as gas chromatography or mass spectrometry. Methadone Screen Urine Negative Negative : < 300 ng/mL [facility] Urine specimen (specimen) 03/25/2015 1:03 PM ACTING INSTRUCTOR 03/25/2015 1:07 PM ACTING INSTRUCTOR Narrative [facility] - 03/25/2015 1:36 PM ACTING INSTRUCTOR The Urine Toxicology Screening Panel does not screen for Propoxyphene, Meprobamate, Carisoprodol, Trazodone, [id number] medications and/or volatiles (Acetone, Isopropanol, Methanol or Ethylene Glycol). Ethanol, Salicylate, Acetaminophen, Tricyclic Antidepressants and several therapeutic drugs may be individually assayed in serum or plasma specimen. Toxicology testing by the [facility] is an aid to medical diagnosis and treatment of patients. No documented chain of custody was maintained. Results are intended to be used for clinical purposes only. Sesar Bhat DO LAB - URINE CHEMISTR Y ORDERABLES Performing Organization Address City/[facility]/ZIP Co de Phone Number [address] [phone] * CULTURE BLOOD (08/22/2014 12:05 AM CDT) Only the most recent of15 resultswithin the time period is included. Culture Blood No Growth at 5 days [facility] Blood specimen (specimen) BLOOD SPECIMEN / Unknown 08/22/2014 12:05 AM CDT 08/22/2014 12:15 AM CDT Narrative [facility] - 08/27/2014 12:30 AM CDT Specimen Type->Blood Radha Gillette MD LAB - MICROBIOLOGY O RDERABLES Performing Organization Address City/[facility]/ZIP Co de Phone Number [address] [phone] * CULTURE STOOL+ E COLI SHIGA-LIKE TOXIN (08/21/2014 4:10 PM CDT) Culture Feces No Salmonella, Shigella, Yersinia, Campylobacter or Escherichia Coli 0157:H7 isolated. Negative for Shiga Toxin by Immunoassay. [facility] Stool specimen (specimen) STOOL SPECIMEN / Unknown 08/21/2014 4:10 PM CDT 08/21/2014 4:34 PM CDT Narrative [facility] - 08/24/2014 2:45 PM CDT Specimen Type->Stool Radha Gillette MD LAB - MICROBIOLOGY O RDERABLES Performing Organization Address [facility]/ZIP Co de Phone Number [address] [phone] * CLOSTRIDIUM DIFFICILE [facility] + TOXIN A+B (08/21/2014 4:10 PM CDT) Only the most recent of4 resultswithin the time period is included. C difficile Antigen Negative Negative [facility] C difficile Toxin Negative Negative [facility] Stool specimen (specimen) STOOL SPECIMEN / Unknown 08/21/2014 4:10 PM CDT 08/21/2014 4:34 PM CDT Narrative [facility] - 08/21/2014 6:01 PM CDT Specimen Type->Stool Radha Gillette MD LAB - MICROBIOLOGY O RDNAVA Performing Organization Address [facility]/[place] Co de Phone Number [address] [phone] * LACTOFERRIN FECAL QUALITATIVE (08/21/2014 4:10 PM CDT) Lactoferrin Fecal Negative Negative [facility] ([facility]) Comment: A negative result does not exclude the presence of intestinal inflammation. Stool specimen (specimen) STOOL SPECIMEN / Unknown 08/21/2014 4:10 PM CDT 08/21/2014 4:22 PM CDT Radha Gillette MD LAB - BODY FLUID ORD ERABLES Performing Organization Address City/[facility]/ZIP Co de Phone Number [facility] ([facility]) * CK + CKMB PANEL (08/21/2014 1:00 AM CDT) Only the most recent of3 resultswithin the time period is included. CK Total 36 30 - 200 Units/L [facility] CK-MB 0.5 0.0 - 6.6 ng/mL [facility] Blood specimen (specimen) BLOOD SPECIMEN / Unknown 08/21/2014 1:00 AM CDT 08/21/2014 1:29 PM CDT M Tera Gillette MD LAB - CHEMISTRY TOSHIA POPE [address] [phone] * MRI ABDOMEN W MRCP WWO CONT W3D (08/07/2014 7:17 AM CDT) Only the most recent of3 resultswithin the time period is included. Anatomical Region Laterality Modality Other Impressions 08/07/2014 12:03 PM CDT Impression: 1. Resolved peripancreatic walled off necrosis. Resolved ascites. 2. Mild focal dilation of the pancreatic duct only in the atrophic pancreatic tail . The remaining pancreas is normal without ductal dilation. 3. Normal common bile duct and no intrahepatic ductal dilation. Report dictated by Santiago Krishnamurthy M.D. (residential remodeling subcontractor). I, Dr. Kvng PAREKH M.D. have personally reviewed and interpreted this examination/study. This report was electronically signed by Kvng PAREKH M.D. on 08/07/2014 12:03 PM . 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 Patient reports continued left upper quadrant abdominal pain. Comparison: Comparison is made to an MRI of the abdomen dated 01/09/[address] on 02/12/2013. Technique: MRI of the abdomen was performed prior to and after administration of 20 mL Multihance according to standard protocol. This included dynamic imaging for MRCP. Image data was analyzed on a dedicated 3D workstation for the MRCP portion of the exam. Findings: The lung bases are clear. The large peripancreatic walled off necrosis has resolved since the previous exam. The liver is normal. No arterial enhancing focal intrahepatic lesion is visible. The portal vein and its major branches are patent. Conventional hepatic arterial anatomy is present. The spleen and adrenal glands are normal. There is a small amount of perisplenic fluid. Multiple bilateral renal cysts are again seen. Otherwise the kidneys are normal. The bowel loops are normal. No free intraperitoneal fluid is visible. An IVC filter causes susceptibility artifact in the inferior vena cava. The remaining vascular structures are normal. Subcentimeter retroperitoneal lymph nodes are noted. MRCP: The gallbladder is absent. There is no intrahepatic or extrahepatic biliary dilation. The pancreatic tail is atrophic with mild dilation of a short segment of the duct in the tail approximately 1.6 cm in length. The remaining pancreas is normal without ductal dilation. There is no peripancreatic fluid. Procedure Note Katty Parekh MD - 07/08/2017 Exam: MRI abdomen with and without contrast History: 24-year-old female with history of SLE and pancreatitis andwall necrosis with stent placement in 2012. Patient reports continued leftupper quadrant abdominal pain. Comparison: Comparison is made to an MRI of the abdomen dated 01/09/2013nd a body CT on 02/12/2013. Technique: MRI of the abdomen was performed prior to and afteradministration of 20 mL Multihance according to standard protocol. Thisincluded dynamic imaging for MRCP. Image data was analyzed on a [id number] workstation for the MRCP portion of the exam. Findings: The lung bases are clear. The large peripancreatic walled off necrosis has resolved since theprevious exam. The liver is normal. No arterial enhancing focal intrahepatic lesion isvisible. The portal vein and its major branches are patent. Conventionalhepatic arterial anatomy is present. The spleen and adrenal glands are normal. There is a small amount ofperisplenic fluid. Multiple bilateral renal cysts are again seen.Otherwise the kidneys are normal. The bowel loops are normal. No free intraperitoneal fluid is visible. AnIVC filter causes susceptibility artifact in the inferior vena cava. Theremaining vascular structures are normal. Subcentimeter retroperitoneallymph nodes are noted. MRCP: The gallbladder is absent. There is no intrahepatic or extrahepaticbiliary dilation. The pancreatic tail is atrophic with mild dilation of ashort segment of the duct in the tail approximately 1.6 cm in length. Theremaining pancreas is normal without ductal dilation. There is no peripancreatic fluid. IMPRESSION Impression: 1. Resolved peripancreatic walled off necrosis. Resolved ascites. 2. Mild focal dilation of the pancreatic duct only in the atrophicpancreatic tail . The remaining pancreas is normal without ductaldilation. 3. Normal common bile duct and no intrahepatic ductal dilation. Report dictated by Santiago Krishnamurthy M.D. (residential remodeling subcontractor). I, Dr. Kvng PAREKH M.D. have personally reviewed and interpreted thisexamination/study. This report was electronically signed by Kvng PAREKH M.D. on08/07/2014 12:03 PM . Morgan Dickey MD MR ORDERABLES * CULTURE URINE REFLEXED (07/16/2014 12:23 PM CDT) Only the most recent of7 resultswithin the time period is included. Culture Urine Comprehensive CULTURE INDICATED - RESULTS TO FOLLOW [facility] ([facility]) Comment: Test Performed at: [facility] [address] [place] [address] WESLEY ARAUJO DO,MPH 07/16/2014 12:2 3 PM CDT 07/16/2014 12:24 PM CDT Bob Varma MD LAB - MICROBIOLOGY O RDERABLES [facility] ([facility]) * PTT SLU (06/20/2014 9:55 PM CDT) Only the most recent of17 resultswithin the time period is included. APTT 34.0 23.0 - 38.4 Seconds [facility] Comment:Suggested therapeuti c range for full dose I.V. heparin therapy for venous thromboembolism is 66.0-91.0 seconds. Blood specimen (specimen) BLOOD SPECIMEN / Unknown 06/20/2014 9:55 PM CDT 06/20/2014 10:03 PM CDT Narrative [facility] - 06/20/2014 10:18 PM CDT Is patient on Heparin, Argatroban or Dabigatran?->N Zach Iverson MD LAB - COAGULATION OR DERABLES Performing Organization Address [facility]/ZIP Co de Phone Number [address] [phone] * LACTIC ACID BLOOD (06/20/2014 9:55 PM CDT) Only the most recent of51 resultswithin the time period is included. Lactic Acid-Stat 0.7 0.5 - 2.2 mmol/L [facility] Blood specimen (specimen) BLOOD SPECIMEN / Unknown 06/20/2014 9:55 PM CDT 06/20/2014 10:03 PM CDT Zach Iverson MD LAB - CHEMISTRY ORDE RABLES Performing Organization Address [facility]/[place] Co de Phone Number [address] [phone] * MICROALB/CREAT RATIO URINE RANDOM PANEL (04/24/2013 2:39 PM ACTING INSTRUCTOR) Creatinine Urine 108 20 - 320 mg/dL [facility] ([facility]) Microalbumin Urine 0.7 mg/dL [facility] ([facility]) Comment: Reference Range Not established Microalbumin/Creat inine Ratio 6 <30 mcg/mg creat [facility] ([facility]) Comment: The ADA defines abnormalities in albumin excretion as follows: Category Result (mcg/mg creatinine) Normal <30 Microalbuminuria 30-299 Clinical albuminuria > OR = 300 The ADA recommends that at least two of three specimens collected within a 3-6 month period be abnormal before considering a patient to be within a diagnostic category. Test Performed at: [facility] [address] [place] [address] WESLEY ARAUJO DO,MPH Urine specimen (specimen) URINE SPECIMEN OBTAINED BY CLEAN CATCH PROCEDURE / Unknown 04/24/2013 2:39 PM ACTING INSTRUCTOR 04/24/2013 2:39 PM ACTING INSTRUCTOR Bob Varma MD LAB - URINE CHEMISTR Y ORDERABLES Performing Organization Address City/[facility]/ZIP Co de Phone Number [facility] ([facility]) * (ABNORMAL) GLUCOSE ACCUCHECK (03/04/2013 11:22 AM ACTING INSTRUCTOR) Only the most recent of127 resultswithin the time period is included. Glucose, Fingerstick 115(H) 70 - 110 MG/DL [facility] Comment:PERFORMED BY: CONSTANCE ACEVEDO 03/04/2013 11:2 2 AM ACTING INSTRUCTOR 03/05/2013 9:11 AM ACTING INSTRUCTOR Cade Mills MD LAB - CHEMISTRY TOSHIA POPE Performing Organization Address [facility] de Phone Number [address] [phone] * VAS BILATERAL VENOUS DUPLEX LE (03/04/2013 10:43 AM ACTING INSTRUCTOR) Only the most recent of3 resultswithin the time period is included. Anatomical Region Laterality Modality Other Maura Hernandez MD VASCULAR LAB ORDERAB LES * PREALBUMIN (03/04/2013 2:48 AM ACTING INSTRUCTOR) Only the most recent of5 resultswithin the time period is included. Prealbumin 24 16 - 45 mg/dL [facility] Venous blood specimen (specimen) 03/04/2013 2:48 AM ACTING INSTRUCTOR 03/04/2013 3:07 AM ACTING INSTRUCTOR Maura Hernandez MD LAB - CHEMISTRY TOSHIA POPE Performing Organization Address [facility]/[place] Co de Phone Number [address] [phone] * IR PICC LINE INSERT (02/25/2013 12:30 PM ACTING INSTRUCTOR) Only the most recent of4 resultswithin the time period is included. Anatomical Region Laterality Modality Other Narrative 02/25/2013 3:57 PM ACTING INSTRUCTOR This is an interventional nephrology procedure performed on 02/25/2013 Denial Resolution Specialist: Rahul Denise Attending: Rahul Denise Procedures performed: 1. Insertion of PICC line 2. Fluoroscopic guidance for central venous catheter procedure 3. Ultrasound guidance for vascular access with permanent recording This patient was referred for placement of a PICC Line for the administration of medications to treat complications of necrotizing pancreatitis. Following informed consent the patient was taken to the angiography suite and placed on the fluoroscopy table. The skin of the right upper arm was prepared with chlorhexidine and sterile drapes were applied. Under real-time ultrasound guidance a basilic vein was cannulated with a micropuncture needle and a microfilament wire was advanced to the central veins under fluoroscopic guidance. This wire was utilized to measure an appropriate length of the catheter which in this case was 31 cm. Accordingly a 5 Gambian double- lumen power PICC line was trimmed to this length and advanced over the guidewire with the aid of the peel-away sheath which was then removed. All lumens flushed easily and were locked with heparinized saline. The catheter was fixed in place with a stat lock device and a sterile CHG dressing was applied. Fluoroscopy confirmed the presence of the catheter tip in the SVC near the right atrium. I was present throughout the procedure. This report was electronically signed by RAHUL DENISE M.D. on 02/25/2013 3:57 PM . Procedure Note Rahul Denise MD - 07/08/2017 This is an interventional nephrology procedure performed on 02/25/2013 Denial Resolution Specialist: Rahul Denise Attending: Rahul Denise Procedures performed: 1. Insertion of PICC line 2. Fluoroscopic guidance for central venous catheter procedure 3. Ultrasound guidance for vascular access with permanent recording This patient was referred for placement of a PICC Line for theadministration of medications to treat complications of necrotizingpancreatitis. Following informed consent the patient was taken to the angiography suiteand placed on the fluoroscopy table. The skin of the right upper arm was prepared with chlorhexidine andsterile drapes were applied. Under real-time ultrasound guidance a basilicvein was cannulated with a micropuncture needle and a microfilament wirewas advanced to the central veins under fluoroscopic guidance. This wire was utilized to measure anappropriate length of the catheter which in this case was 31 cm.Accordingly a 5 Gambian double-lumen power PICC line was trimmed to thislength and advanced over the guidewire with the aid of the peel-away sheath which was then removed. All lumens flushed easilyand were locked with heparinized saline. The catheter was fixed in placewith a stat lock device and a sterile CHG dressing was applied.Fluoroscopy confirmed the presence of the catheter tip in the SVC near the right atrium. I was present throughout the procedure. This report was electronically signed by RAHUL DENISE M.D. on 02/25/20133:57 PM . Maura Hernandez MD IR ORDERABLES * IR US GUIDE VASCULAR ACCESS (02/25/2013 12:30 PM ACTING INSTRUCTOR) Only the most recent of2 resultswithin the time period is included. Anatomical Region Laterality Modality Other Narrative 02/25/2013 3:57 PM ACTING INSTRUCTOR This is an interventional nephrology procedure performed on 02/25/2013 Denial Resolution Specialist: Rahul Denise Attending: Rahul Denise Procedures performed: 1. Insertion of PICC line 2. Fluoroscopic guidance for central venous catheter procedure 3. Ultrasound guidance for vascular access with permanent recording This patient was referred for placement of a PICC Line for the administration of medications to treat complications of necrotizing pancreatitis. Following informed consent the patient was taken to the angiography suite and placed on the fluoroscopy table. The skin of the right upper arm was prepared with chlorhexidine and sterile drapes were applied. Under real-time ultrasound guidance a basilic vein was cannulated with a micropuncture needle and a microfilament wire was advanced to the central veins under fluoroscopic guidance. This wire was utilized to measure an appropriate length of the catheter which in this case was 31 cm. Accordingly a 5 Gambian double- lumen power PICC line was trimmed to this length and advanced over the guidewire with the aid of the peel-away sheath which was then removed. All lumens flushed easily and were locked with heparinized saline. The catheter was fixed in place with a stat lock device and a sterile CHG dressing was applied. Fluoroscopy confirmed the presence of the catheter tip in the SVC near the right atrium. I was present throughout the procedure. This report was electronically signed by RAHUL DENISE M.D. on 02/25/2013 3:57 PM . Procedure Note Rahul Denise MD - 07/08/2017 This is an interventional nephrology procedure performed on 02/25/2013 Denial Resolution Specialist: Rahul Denise Attending: Rahul Denise Procedures performed: 1. Insertion of PICC line 2. Fluoroscopic guidance for central venous catheter procedure 3. Ultrasound guidance for vascular access with permanent recording This patient was referred for placement of a PICC Line for theadministration of medications to treat complications of necrotizingpancreatitis. Following informed consent the patient was taken to the angiography suiteand placed on the fluoroscopy table. The skin of the right upper arm was prepared with chlorhexidine andsterile drapes were applied. Under real-time ultrasound guidance a basilicvein was cannulated with a micropuncture needle and a microfilament wirewas advanced to the central veins under fluoroscopic guidance. This wire was utilized to measure anappropriate length of the catheter which in this case was 31 cm.Accordingly a 5 Gambian double-lumen power PICC line was trimmed to thislength and advanced over the guidewire with the aid of the peel-away sheath which was then removed. All lumens flushed easilyand were locked with heparinized saline. The catheter was fixed in placewith a stat lock device and a sterile CHG dressing was applied.Fluoroscopy confirmed the presence of the catheter tip in the SVC near the right atrium. I was present throughout the procedure. This report was electronically signed by RAHUL DENISE M.D. on 02/25/20133:57 PM . Maura Hernandez MD IR ORDERABLES * (ABNORMAL) BLOOD GASES ART (02/21/2013 5:30 AM ACTING INSTRUCTOR) Only the most recent of47 resultswithin the time period is included. pH Arterial 7.47(H) 7.35 - 7.45 [facility] pCO2 Arterial 32(L) 35 - 45 mmHg [facility] pO2 Arterial 195(H) 82 - 106 mmHg [facility] HCO3 Arterial 23.1 22 - 26 mEq/L [facility] TCO2 Arterial 24.1(L) 25 - 29 mEq/L [facility] Base Excess Arterial 0.1 -2 - 2 [facility] Hemoglobin Arterial 7.6(L) 12.0 - 15.5 g/dL [facility] Oxyhemoglobin Arterial 97.2 95.0 - 100.0 % [facility] Carboxyhemoglobin 1.6 0 - 3 % [facility] Methemoglobin 1.1 0 - 2.0 % [facility] FI O2 Arterial 21 [facility] Arterial blood specimen (specimen) 02/21/2013 5:30 AM ACTING INSTRUCTOR 02/21/2013 5:50 AM ACTING INSTRUCTOR Narrative [facility] - 02/21/2013 5:50 AM ACTING INSTRUCTOR FiO2->40% FIo2: 21 Maura Hernandez MD LAB - BLOOD GASES OR DERABLES [facility] [address] [phone] * XR CHEST 1VW PORTABLE (02/21/2013 4:39 AM ACTING INSTRUCTOR) Only the most recent of12 resultswithin the time period is included. Anatomical Region Laterality Modality Chest Other Impressions 02/21/2013 2:05 PM ACTING INSTRUCTOR Impression: The endotracheal tube is unchanged in position and terminates in the midthoracic trachea. The enteric tube terminates in the body of the stomach. A left internal jugular central venous catheter terminates in the superior vena cava. A right subclavian central venous catheter has been removed. Surgical drains and surgical clips are redemonstrated in the upper abdomen. Skin natalie overlying the midabdomen are unchanged. The lung volumes remain low. Left basilar atelectasis and/or airspace disease has decreased. There is no pneumothorax. The cardiomediastinal silhouette is stable. Report dictated by Nancy Solorio M.D. (residential remodeling subcontractor). Dr. Kvng Gregg M.D. have personally reviewed and interpreted this examination/study. This report was electronically signed by Kvng PAREKH M.D. on 02/21/2013 2:05 PM . Narrative 02/21/2013 2:05 PM ACTING INSTRUCTOR Exam: PX CHEST 1 VW Date: 02/21/2013 4:39 AM History: intubated Comparison: The presence made to prior study dated 02/20/2013 at 2:30 PM. Procedure Note Katty Parekh MD - 07/08/2017 Exam: PX CHEST 1 VW Date: 02/21/2013 4:39 AM History: intubated Comparison: The presence made to prior study dated 02/20/2013 at 2:30PM. IMPRESSION Impression: The endotracheal tube is unchanged in position and terminates in themidthoracic trachea. The enteric tube terminates in the body of thestomach. A left internal jugular central venous catheter terminates in thesuperior vena cava. A right subclavian central venous catheter has been removed. Surgical drains and surgicalclips are redemonstrated in the upper abdomen. Skin natalie overlying themidabdomen are unchanged. The lung volumes remain low. Left basilar atelectasis and/or airspacedisease has decreased. There is no pneumothorax. The cardiomediastinalsilhouette is stable. Report dictated by Nancy Solorio M.D. (residential remodeling subcontractor). I, Dr. Kvng PAREKH M.D. have personally reviewed and interpreted thisexamination/study. This report was electronically signed by Kvng PAREKH M.D. on02/21/2013 2:05 PM . Maura Hernandez MD DIAGNOSTIC IMAGING O RDERABLES * (ABNORMAL) CALCIUM IONIZED WHOLE BLOOD (02/21/2013 12:00 AM ACTING INSTRUCTOR) Only the most recent of19 resultswithin the time period is included. Ionized Calcium Whole Blood 1.16 MMOL/L [facility] Whole Blood PH 7.49(H) 7.35 - 7.45 [facility] Adjusted Ionized Calcium 1.21 1.19 - 1.34 mmol/L [facility] 02/21/2013 02/21/2013 12: 54 AM ACTING INSTRUCTOR Maura Hernandez MD LAB - CHEMISTRY TOSHIA POPE [address] [phone] * XR ABDOMEN KUB PORTABLE (02/20/2013 10:48 AM ACTING INSTRUCTOR) Only the most recent of6 resultswithin the time period is included. Anatomical Region Laterality Modality Other Impressions 02/20/2013 11:14 AM ACTING INSTRUCTOR Impression: The enteric tube terminates in the proximal stomach. Several surgical drains are now seen overlying the abdomen. Surgical clips are seen superimposing the right upper quadrant. A radiopaque linear density is identified overlying the right flank. An IVC filter has been placed. Several skin natalie are present in the midline. Report dictated by Nancy Solorio M.D. (residential remodeling subcontractor). This report was approved by Nancy Solorio M.D. on 02/20/2013 11:[address] REYMUNDO Gregg MD have personally reviewed and interpreted this examination/study. This report was electronically signed by Dr. REYMUNDO JONES MD on 02/20/2013 11:14 AM . Narrative 02/20/2013 11:14 AM ACTING INSTRUCTOR Exam: PX ABDOMEN 1 VW Date: 02/20/2013 10:48 AM History: NG Placement Comparison: Comparison is made to prior study dated 02/13/2013. Procedure Note Reymundo Jones MD - 07/08/2017 Exam: PX ABDOMEN 1 VW Date: 02/20/2013 10:48 AM History: NG Placement Comparison: Comparison is made to prior study dated 02/13/2013. IMPRESSION Impression: The enteric tube terminates in the proximal stomach. Several surgicaldrains are now seen overlying the abdomen. Surgical clips are seensuperimposing the right upper quadrant. A radiopaque linear density isidentified overlying the right flank. An IVC filter has been placed. Several skin natalie are present in the midline. Report dictated by Nnacy Solorio M.D. (residential remodeling subcontractor). This report was approved by Nancy Solorio M.D. on 02/20/2013 11:14AM . Dr. Dr. REYMUNDO Gregg MD have personally reviewed and interpreted thisexamination/study. This report was electronically signed by Dr. REYMUNDO JONES MD on02/20/2013 11:14 AM . Maura Hernandez MD DIAGNOSTIC IMAGING O RDERABLES * CULTURE SPUTUM+GRAM STAIN (02/19/2013 5:20 PM ACTING INSTRUCTOR) Gram Stain MODERATE POLYMORPHONUCLEAR CELLS; RARE EPITHELIAL CELLS; MODERATE YEAST AND PSEUDOHYPHAE SEEN. GRAM STAINS ARE ROUTINELY SCREENED FOR THE PRESENCE OF POLYMORPHONUCLEAR CELLS. [facility] Culture Results [facility] Culture Sputum and Smear NO GROWTH AFTER 24 HOURS. AFTER 48 HOURS, MODERATE GROWTH OF YEAST. [facility] Culture Results [facility] Sputum specimen (specimen) URINE SPECIMEN COLLECTION, CATHETERIZED / Unknown 02/19/2013 5:20 PM ACTING INSTRUCTOR 02/19/2013 5:49 PM ACTING INSTRUCTOR Narrative [facility] - 02/21/2013 10:46 AM ACTING INSTRUCTOR Specimen Type->Sputum Maura Hernandez MD LAB - MICROBIOLOGY O SOCRATES Performing Organization Address City/[facility]/ZIP Co de Phone Number [address] [phone] * LACTIC ACID WHOLE BLOOD (02/18/2013 11:30 AM ACTING INSTRUCTOR) Only the most recent of2 resultswithin the time period is included. Pathologist [facility] Lactic Acid-Stat 2.1 0.5 - 3.4 mmol/L [facility] Blood specimen (specimen) 02/18/2013 11:30 AM ACTING INSTRUCTOR 02/18/2013 11:44 AM ACTING INSTRUCTOR Anushka Peter MD LAB - CHEMISTRY TOSHIA POPE Performing Organization Address City/[facility]/ZIP Co de Phone Number [address] [phone] * CHLORIDE WHOLE BLOOD (02/18/2013 11:30 AM ACTING INSTRUCTOR) Pathologist [facility] Whole Blood CL 106 101 - 111 MMOL/L [facility] 02/18/2013 11:3 0 AM ACTING INSTRUCTOR 02/18/2013 11:44 AM ACTING INSTRUCTOR Anushka Peter MD LAB - CHEMISTRY TOSHIA POPE Performing Organization Address [facility]/ZIP Co de Phone Number [address] [phone] * (ABNORMAL) BLOOD GASES SEVERIANO (02/18/2013 11:30 AM ACTING INSTRUCTOR) Only the most recent of5 resultswithin the time period is included. pH Venous 7.48(H) 7.30 - 7.40 [facility] pCO2 Venous 37(L) 40 - 46 mmHg [facility] pO2 Venous 42 35 - 42 mmHg [facility] HCO3 Venous 27.5(H) 22.0 - 26.0 mEq/L [facility] TCO2 Mixed Venous 28.6 25.0 - 29.0 mEq/L [facility] Base Excess Venous 4.3(H) -2 - 2 [facility] Hemoglobin Mixed Venous 11.4(L) 12 - 15 g/dL [facility] Oxyhemoglobin Mixed Venous 81.1(H) 66.0 - 77.0 % [facility] Carboxyhemoglobin 1.6 0.0 - 3.0 % [facility] Methemoglobin 1.7 0.0 - 2.0 % [facility] FI O2 Mixed Venous [address] [facility] Venous blood specimen (specimen) 02/18/2013 11:30 AM ACTING INSTRUCTOR 02/18/2013 5:03 PM ACTING INSTRUCTOR Narrative [facility] - 02/18/2013 5:07 PM ACTING INSTRUCTOR FIO2->100% FIo2: 100 Maura Hernandez MD LAB - BLOOD GASES OR DERABLES [address] [phone] * (ABNORMAL) POTASSIUM WHOLE BLD (02/18/2013 11:30 AM ACTING INSTRUCTOR) Potassium 3.0(L) 3.5 - 5.5 mmol/L [facility] 02/18/2013 11:3 0 AM ACTING INSTRUCTOR 02/18/2013 11:44 AM ACTING INSTRUCTOR Anushka Peter MD LAB - CHEMISTRY TOSHIA POPE [address] [phone] * SODIUM WHOLE BLOOD (02/18/2013 11:30 AM ACTING INSTRUCTOR) Sodium Whole Blood 139 135 - 145 mmol/L [facility] 02/18/2013 11:3 0 AM ACTING INSTRUCTOR 02/18/2013 11:44 AM ACTING INSTRUCTOR Anushka Peter MD LAB - CHEMISTRY TOSHIA POPE Performing Organization Address [facility]/[place] Co de Phone Number [address] [phone] * (ABNORMAL) GLUCOSE WHOLE BLOOD (02/18/2013 11:30 AM ACTING INSTRUCTOR) Glucose 199(H) 70 - 110 mg/dL [facility] 02/18/2013 11:3 0 AM ACTING INSTRUCTOR 02/18/2013 11:44 AM ACTING INSTRUCTOR Anushka Peter MD LAB - CHEMISTRY TOSHIA POPE Performing Organization Address [facility] de Phone Number [address] [phone] * CT HEAD WO CONTRAST (02/18/2013 6:06 AM ACTING INSTRUCTOR) Only the most recent of2 resultswithin the time period is included. Anatomical Region Laterality Modality Head Other Impressions 02/18/2013 7:24 AM ACTING INSTRUCTOR IMPRESSION: 1. No acute intracranial process. 2. Mild cerebral atrophy and basal ganglia calcifications which may reflect sequela of long-standing small vessel vasculopathy in this patient with systemic lupus erythematosus. This report was electronically signed by PRERNA WOODS M.D. on 02/18/2013 7:24 AM . Narrative 02/18/2013 7:24 AM ACTING INSTRUCTOR EXAMINATION: Computed tomography (CT) of the head without contrast HISTORY: Change in pupillary size TECHNIQUE: CT of the head was performed without contrast according to standard protocol. FINDINGS: Comparison is made with a study from 19 December 2012. No acute intra- or extra-axial fluid collections are identified. There is mild cerebral volume loss with associated ex vacuo ventricular dilatation. The basilar cisterns are patent. No mass effect or midline shift is seen. The barber-white matter differentiation is normal. Calcifications are noted in the basal ganglia bilaterally. Other than mild paranasal sinus disease, the visualized portions of the orbits, paranasal sinuses, and mastoids appear normal. No acute fracture is identified. Procedure Note Prerna Woods MD - 07/08/2017 EXAMINATION: Computed tomography (CT) of the head without contrast HISTORY: Change in pupillary size TECHNIQUE: CT of the head was performed without contrast according tostandard protocol. FINDINGS: Comparison is made with a study from 19 December 2012. No acute intra- or extra-axial fluid collections are identified. There ismild cerebral volume loss with associated ex vacuo ventricular dilatation.The basilar cisterns are patent. No mass effect or midline shift is seen.The barber-white matter differentiation is normal. Calcifications are noted in the basal gangliabilaterally. Other than mild paranasal sinus disease, the visualizedportions of the orbits, paranasal sinuses, and mastoids appear normal. Noacute fracture is identified. IMPRESSION IMPRESSION: 1. No acute intracranial process. 2. Mild cerebral atrophy and basal ganglia calcifications which mayreflect sequela of long-standing small vessel vasculopathy in this patientwith systemic lupus erythematosus. This report was electronically signed by PRERNA WOODS M.D. on02/18/2013 7:24 AM . Maura Hernandez MD CT ORDERABLES * (ABNORMAL) SVO2 FOR RECALIBRATION (02/17/2013 2:15 AM ACTING INSTRUCTOR) Only the most recent of4 resultswithin the time period is included. SVO2 for Recalibration 61.9(L) 66.0 - 77.0 % [facility] 02/17/2013 2:15 AM ACTING INSTRUCTOR 02/17/2013 2:35 AM ACTING INSTRUCTOR Chidi Zaragoza MD LAB - CHEMISTRY [facility]OSHIA [facility]OPE [address] [phone] * CROSSMATCH RBC LEUKOREDUCED (02/15/2013 5:00 PM ACTING INSTRUCTOR) Only the most recent of5 resultswithin the time period is included. Blood Product [id number] A+ RBC-WBCD TRANSFUSED 02/18/13 1139 [id number] A+ RBC-WBCD XM COMPATIBLE [id number] A+ RBC-WBCD XM COMPATIBLE [id number] A+ RBC-WBCD XM COMPATIBLE [facility] 02/15/2013 5:00 PM ACTING INSTRUCTOR 02/15/2013 5:12 PM ACTING INSTRUCTOR Chidi Zaragoza MD LAB - BLOOD BANK ORD ERABLES [address] [phone] * IR VASCULAR CLOSURE DEVICE (02/13/2013 11:00 AM ACTING INSTRUCTOR) Anatomical Region Laterality Modality Other Impressions 02/21/2013 5:27 PM ACTING INSTRUCTOR Impression: Pulmonary angiogram from main pulmonary artery demonstrated no obvious filling defect suggesting massive pulmonary thrombus. The perforation on both sides appear to be normal. Note was made of diffuse infiltrative process seen on both lung jones, which could suggest underlying ARDS. Placement of a retrievable IVC filter below the level of renal veins. The celiac and superior mesenteric angiogram failed to demonstrate any obvious extravasation. Note: It is recommended to retrieve the temporary IVC filter within 3 months, if it is no longer needed. Otherwise, it potentially becomes irretrievable and permanent. Dr. Sara Kennedy was present and performed/supervised the entire procedure. This report was electronically signed by JERARDO KENNEDY M.D. on 02/21/2013 5:27 PM . Narrative 02/21/2013 5:27 PM ACTING INSTRUCTOR History: Patient with necrotizing pancreatitis underwent surgical necrosectomy. Patient was hypotensive and her recent KEYANNA, there was suggestion for large saddle embolus, was referred for mechanical thrombectomy and if needed thrombolysis. Also, there was suspicion for continued bleeding intra-abdominally. The team was requesting for emergency thrombectomy, IVC filter placement and mesenteric angiography. Operators: 1. Dr. Sara Kennedy, Attending Physician Anesthesia: 1. General Anesthesia Procedure: 1. Ultrasound-guided access of right common femoral vein. 2. Selective catheterization of main pulmonary artery and angiogram. 3. Inferior venacavogram. 4. Placement of a retrievable Marathon IVC filter below the level of renal veins. 5. Ultrasound guided access of right common femoral artery 6. Selective catheterization of celiac artery with VS2 catheter and angiogram. 7. Selective catheterization of SMA with VS2 catheter and angiogram. Duration of the procedure: Appx 60 minutes. Fluoroscopy time: 9.3 minutes. Contrast used: 130 mL of Omnipaque-240. Procedure in detail: An emergency informed consent was obtained. The patient was already intubated and was managed by anesthesia service. The patient was placed supine on the angiographic table. The right groin was prepped and draped in the usual sterile manner. A pool nurse film of chest demonstrated the tracheostomy tube in place and note was diffuse infiltrative process involving both lung jones. Otherwise, the chest was unremarkable. Limited ultrasound of right groin demonstrated a patent and compressible right common femoral vein. A barber scale image was documented. Under real time ultrasound guidance, using a micropuncture needle, the right common femoral vein was accessed. The needle entry was documented on barber scale ultrasound imaging. Following a series of exchanges, a 0.035 inch wire was advanced into the IVC and an 6 Gambian vascular sheath was placed. Using a 6 Gambian MPA catheter and Glidewire combination the catheter was advanced into the main pulmonary artery. The catheter was then exchanged for a pigtail catheter and pulmonary angiography was obtained in two different projection. The pulmonary angiogram demonstrated normal opacification of main pulmonary artery as well as right and left pulmonary arteries. There is no noticeable filling defect noted in the main as well as proximal right and left pulmonary arteries. Also, the perfusion to both lung jones was uniform. Since there was no filling defect or significant clot burden, no further intervention was planned. The findings were discussed with referring team. Since the patient was bleeding from pancreatic bed, team requested to perform mesenteric angiography for possible embolization of bleeding site, if found. Also, the team was requesting to place an IVC filter as there was reason clot detected on the recent CAT scan. Inferior venacavogram was obtained, which demonstrated normal IVC caliber. There is normal flow-voids noted from the renal veins as well as from left common iliac vein. After, series of exchanges, an IVC delivery sheath was advanced. An retrievable Marathon IVC filter was deployed below the level of renal veins under fluoroscopic guidance. Followup venogram demonstrated satisfactory position of the IVC filter below the level of renal veins. The sheath was removed and hemostasis was achieved with manual compression. Under ultrasound guidance, the right common femoral artery was accessed using a micropuncture needle. The needle entry was documented. A wrist series of exchanges a 5 Gambian vascular sheath was placed. Using a VS 2 catheter the celiac artery was catheterized. The angiogram of celiac artery demonstrated normal celiac artery, splenic artery as well as common hepatic arteries. There was no obvious extravasation of contrast noted, including the territory The superior mesenteric artery was then selectively catheterized with VS 2 catheter and an angiogram was obtained. The angiogram demonstrated normal superior mesenteric artery caliber with its main branches including digital, a new correlate and ileal branches. No obvious extravasation was noted in the vicinity of the pancreas. Findings were discussed with the primary team and the sheath was removed and hemostasis was achieved with manual compression. The patient tolerated the procedure well and was transferred to ICU in stable condition. Procedure Note Jerardo Kennedy MD - 07/08/2017 History: Patient with necrotizing pancreatitis underwent surgicalnecrosectomy. Patient was hypotensive and her recent KEYANNA, there wassuggestion for large saddle embolus, was referred for mechanicalthrombectomy and if needed thrombolysis. Also, there was suspicion for continued bleeding intra-abdominally. The team wasrequesting for emergency thrombectomy, IVC filter placement and mesentericangiography. Operators: 1. Dr. Sara Kennedy, Attending Physician Anesthesia: 1. General Anesthesia Procedure: 1. Ultrasound-guided access of right common femoral vein. 2. Selective catheterization of main pulmonary artery and angiogram. 3. Inferior venacavogram. 4. Placement of a retrievable Marathon IVC filter below the level of renalveins. 5. Ultrasound guided access of right common femoral artery 6. Selective catheterization of celiac artery with VS2 catheter andangiogram. 7. Selective catheterization of SMA with VS2 catheter and angiogram. Duration of the procedure: Appx 60 minutes. Fluoroscopy time: 9.3 minutes. Contrast used: 130 mL of Omnipaque-240. Procedure in detail: An emergency informed consent was obtained. Thepatient was already intubated and was managed by anesthesia service. The patient was placed supine on the angiographic table. The right groinwas prepped and draped in the usual sterile manner. A pool nurse film of chestdemonstrated the tracheostomy tube in place and note was diffuseinfiltrative process involving both lung jones. Otherwise, the chest was unremarkable. Limited ultrasound of right groin demonstrated a patent and compressibleright common femoral vein. A barber scale image was documented. Under realtime ultrasound guidance, using a micropuncture needle, the right commonfemoral vein was accessed. The needle entry was documented on barber scale ultrasound imaging. Following aseries of exchanges, a 0.035 inch wire was advanced into the IVC and an 6French vascular sheath was placed. Using a 6 Gambian MPA catheter and Glidewire combination the catheter wasadvanced into the main pulmonary artery. The catheter was then exchangedfor a pigtail catheter and pulmonary angiography was obtained in twodifferent projection. The pulmonary angiogram demonstrated normal opacification of main pulmonary artery aswell as right and left pulmonary arteries. There is no noticeable fillingdefect noted in the main as well as proximal right and left pulmonaryarteries. Also, the perfusion to both lung jones was uniform. Since there was no filling defect or significantclot burden, no further intervention was planned. The findings were discussed with referring team. Since the patient wasbleeding from pancreatic bed, team requested to perform mesentericangiography for possible embolization of bleeding site, if found. Also,the team was requesting to place an IVC filter as there was reason clot detected on the recent CAT scan. Inferior venacavogram was obtained, which demonstrated normal IVC caliber.There is normal flow-voids noted from the renal veins as well as from leftcommon iliac vein. After, series of exchanges, an IVC delivery sheath wasadvanced. An retrievable Halley IVC filter was deployed below the level of renal veins underfluoroscopic guidance. Followup venogram demonstrated satisfactoryposition of the IVC filter below the level of renal veins. The sheath wasremoved and hemostasis was achieved with manual compression. Under ultrasound guidance, the right common femoral artery was accessedusing a micropuncture needle. The needle entry was documented. A wristseries of exchanges a 5 Gambian vascular sheath was placed. Using a VS 2 catheter the celiac artery was catheterized. The angiogram ofceliac artery demonstrated normal celiac artery, splenic artery as wellas common hepatic arteries. There was no obvious extravasation of contrastnoted, including the territory The superior mesenteric artery was then selectively catheterized with VS 2catheter and an angiogram was obtained. The angiogram demonstrated normalsuperior mesenteric artery caliber with its main branches includingdigital, a new correlate and ileal branches. No obvious extravasation was noted in the vicinity of thepancreas. Findings were discussed with the primary team and the sheath was removedand hemostasis was achieved with manual compression. The patient toleratedthe procedure well and was transferred to ICU in stable condition. IMPRESSION Impression: Pulmonary angiogram from main pulmonary artery demonstrated noobvious filling defect suggesting massive pulmonary thrombus. Theperforation on both sides appear to be normal. Note was made of diffuseinfiltrative process seen on both lung jones, which could suggest underlying ARDS. Placement of a retrievable IVC filter below the level of renal veins. The celiac and superior mesenteric angiogram failed to demonstrate anyobvious extravasation. Note: It is recommended to retrieve the temporary IVC filter within 3months, if it is no longer needed. Otherwise, it potentially becomesirretrievable and permanent. Dr. Sara Kennedy was present and performed/supervised the entireprocedure. This report was electronically signed by JERARDO KENNEDY M.D. on02/21/2013 5:27 PM . Cade Mills MD IR ORDERABLES * IR PULMONARY ANGIO PROCEDURAL CODE (02/13/2013 11:00 AM ACTING INSTRUCTOR) Anatomical Region Laterality Modality Other Impressions 02/21/2013 5:27 PM ACTING INSTRUCTOR Impression: Pulmonary angiogram from main pulmonary artery demonstrated no obvious filling defect suggesting massive pulmonary thrombus. The perforation on both sides appear to be normal. Note was made of diffuse infiltrative process seen on both lung jones, which could suggest underlying ARDS. Placement of a retrievable IVC filter below the level of renal veins. The celiac and superior mesenteric angiogram failed to demonstrate any obvious extravasation. Note: It is recommended to retrieve the temporary IVC filter within 3 months, if it is no longer needed. Otherwise, it potentially becomes irretrievable and permanent. Dr. Sara Kennedy was present and performed/supervised the entire procedure. This report was electronically signed by JERARDO KENNEDY M.D. on 02/21/2013 5:27 PM . Narrative 02/21/2013 5:27 PM ACTING INSTRUCTOR History: Patient with necrotizing pancreatitis underwent surgical necrosectomy. Patient was hypotensive and her recent KEYANNA, there was suggestion for large saddle embolus, was referred for mechanical thrombectomy and if needed thrombolysis. Also, there was suspicion for continued bleeding intra-abdominally. The team was requesting for emergency thrombectomy, IVC filter placement and mesenteric angiography. Operators: 1. Dr. Sara Kennedy, Attending Physician Anesthesia: 1. General Anesthesia Procedure: 1. Ultrasound-guided access of right common femoral vein. 2. Selective catheterization of main pulmonary artery and angiogram. 3. Inferior venacavogram. 4. Placement of a retrievable Marathon IVC filter below the level of renal veins. 5. Ultrasound guided access of right common femoral artery 6. Selective catheterization of celiac artery with VS2 catheter and angiogram. 7. Selective catheterization of SMA with VS2 catheter and angiogram. Duration of the procedure: Appx 60 minutes. Fluoroscopy time: 9.3 minutes. Contrast used: 130 mL of Omnipaque-240. Procedure in detail: An emergency informed consent was obtained. The patient was already intubated and was managed by anesthesia service. The patient was placed supine on the angiographic table. The right groin was prepped and draped in the usual sterile manner. A pool nurse film of chest demonstrated the tracheostomy tube in place and note was diffuse infiltrative process involving both lung jones. Otherwise, the chest was unremarkable. Limited ultrasound of right groin demonstrated a patent and compressible right common femoral vein. A barber scale image was documented. Under real time ultrasound guidance, using a micropuncture needle, the right common femoral vein was accessed. The needle entry was documented on barber scale ultrasound imaging. Following a series of exchanges, a 0.035 inch wire was advanced into the IVC and an 6 Gambian vascular sheath was placed. Using a 6 Gambian MPA catheter and Glidewire combination the catheter was advanced into the main pulmonary artery. The catheter was then exchanged for a pigtail catheter and pulmonary angiography was obtained in two different projection. The pulmonary angiogram demonstrated normal opacification of main pulmonary artery as well as right and left pulmonary arteries. There is no noticeable filling defect noted in the main as well as proximal right and left pulmonary arteries. Also, the perfusion to both lung jones was uniform. Since there was no filling defect or significant clot burden, no further intervention was planned. The findings were discussed with referring team. Since the patient was bleeding from pancreatic bed, team requested to perform mesenteric angiography for possible embolization of bleeding site, if found. Also, the team was requesting to place an IVC filter as there was reason clot detected on the recent CAT scan. Inferior venacavogram was obtained, which demonstrated normal IVC caliber. There is normal flow-voids noted from the renal veins as well as from left common iliac vein. After, series of exchanges, an IVC delivery sheath was advanced. An retrievable Halley IVC filter was deployed below the level of renal veins under fluoroscopic guidance. Followup venogram demonstrated satisfactory position of the IVC filter below the level of renal veins. The sheath was removed and hemostasis was achieved with manual compression. Under ultrasound guidance, the right common femoral artery was accessed using a micropuncture needle. The needle entry was documented. A wrist series of exchanges a 5 Gambian vascular sheath was placed. Using a VS 2 catheter the celiac artery was catheterized. The angiogram of celiac artery demonstrated normal celiac artery, splenic artery as well as common hepatic arteries. There was no obvious extravasation of contrast noted, including the territory The superior mesenteric artery was then selectively catheterized with VS 2 catheter and an angiogram was obtained. The angiogram demonstrated normal superior mesenteric artery caliber with its main branches including digital, a new correlate and ileal branches. No obvious extravasation was noted in the vicinity of the pancreas. Findings were discussed with the primary team and the sheath was removed and hemostasis was achieved with manual compression. The patient tolerated the procedure well and was transferred to ICU in stable condition. Procedure Note Jerardo Kennedy MD - 07/08/2017 History: Patient with necrotizing pancreatitis underwent surgicalnecrosectomy. Patient was hypotensive and her recent KEYANNA, there wassuggestion for large saddle embolus, was referred for mechanicalthrombectomy and if needed thrombolysis. Also, there was suspicion for continued bleeding intra-abdominally. The team wasrequesting for emergency thrombectomy, IVC filter placement and mesentericangiography. Operators: 1. Dr. Sara Kennedy, Attending Physician Anesthesia: 1. General Anesthesia Procedure: 1. Ultrasound-guided access of right common femoral vein. 2. Selective catheterization of main pulmonary artery and angiogram. 3. Inferior venacavogram. 4. Placement of a retrievable Marathon IVC filter below the level of renalveins. 5. Ultrasound guided access of right common femoral artery 6. Selective catheterization of celiac artery with VS2 catheter andangiogram. 7. Selective catheterization of SMA with VS2 catheter and angiogram. Duration of the procedure: Appx 60 minutes. Fluoroscopy time: 9.3 minutes. Contrast used: 130 mL of Omnipaque-240. Procedure in detail: An emergency informed consent was obtained. Thepatient was already intubated and was managed by anesthesia service. The patient was placed supine on the angiographic table. The right groinwas prepped and draped in the usual sterile manner. A pool nurse film of chestdemonstrated the tracheostomy tube in place and note was diffuseinfiltrative process involving both lung jones. Otherwise, the chest was unremarkable. Limited ultrasound of right groin demonstrated a patent and compressibleright common femoral vein. A barber scale image was documented. Under realtime ultrasound guidance, using a micropuncture needle, the right commonfemoral vein was accessed. The needle entry was documented on barber scale ultrasound imaging. Following aseries of exchanges, a 0.035 inch wire was advanced into the IVC and an 6French vascular sheath was placed. Using a 6 Gambian MPA catheter and Glidewire combination the catheter wasadvanced into the main pulmonary artery. The catheter was then exchangedfor a pigtail catheter and pulmonary angiography was obtained in twodifferent projection. The pulmonary angiogram demonstrated normal opacification of main pulmonary artery aswell as right and left pulmonary arteries. There is no noticeable fillingdefect noted in the main as well as proximal right and left pulmonaryarteries. Also, the perfusion to both lung jones was uniform. Since there was no filling defect or significantclot burden, no further intervention was planned. The findings were discussed with referring team. Since the patient wasbleeding from pancreatic bed, team requested to perform mesentericangiography for possible embolization of bleeding site, if found. Also,the team was requesting to place an IVC filter as there was reason clot detected on the recent CAT scan. Inferior venacavogram was obtained, which demonstrated normal IVC caliber.There is normal flow-voids noted from the renal veins as well as from leftcommon iliac vein. After, series of exchanges, an IVC delivery sheath wasadvanced. An retrievable Halley IVC filter was deployed below the level of renal veins underfluoroscopic guidance. Followup venogram demonstrated satisfactoryposition of the IVC filter below the level of renal veins. The sheath wasremoved and hemostasis was achieved with manual compression. Under ultrasound guidance, the right common femoral artery was accessedusing a micropuncture needle. The needle entry was documented. A wristseries of exchanges a 5 Gambian vascular sheath was placed. Using a VS 2 catheter the celiac artery was catheterized. The angiogram ofceliac artery demonstrated normal celiac artery, splenic artery as wellas common hepatic arteries. There was no obvious extravasation of contrastnoted, including the territory The superior mesenteric artery was then selectively catheterized with VS 2catheter and an angiogram was obtained. The angiogram demonstrated normalsuperior mesenteric artery caliber with its main branches includingdigital, a new correlate and ileal branches. No obvious extravasation was noted in the vicinity of thepancreas. Findings were discussed with the primary team and the sheath was removedand hemostasis was achieved with manual compression. The patient toleratedthe procedure well and was transferred to ICU in stable condition. IMPRESSION Impression: Pulmonary angiogram from main pulmonary artery demonstrated noobvious filling defect suggesting massive pulmonary thrombus. Theperforation on both sides appear to be normal. Note was made of diffuseinfiltrative process seen on both lung jones, which could suggest underlying ARDS. Placement of a retrievable IVC filter below the level of renal veins. The celiac and superior mesenteric angiogram failed to demonstrate anyobvious extravasation. Note: It is recommended to retrieve the temporary IVC filter within 3months, if it is no longer needed. Otherwise, it potentially becomesirretrievable and permanent. Dr. Sara Kennedy was present and performed/supervised the entireprocedure. This report was electronically signed by JERARDO KENNEDY M.D. on02/21/2013 5:27 PM . Cade Mills MD IR ORDERABLES * IR ANGIO EXTREMITY PROCEDURAL CODE (02/13/2013 11:00 AM ACTING INSTRUCTOR) Only the most recent of2 resultswithin the time period is included. Anatomical Region Laterality Modality Other Impressions 02/21/2013 5:27 PM ACTING INSTRUCTOR Impression: Pulmonary angiogram from main pulmonary artery demonstrated no obvious filling defect suggesting massive pulmonary thrombus. The perforation on both sides appear to be normal. Note was made of diffuse infiltrative process seen on both lung jones, which could suggest underlying ARDS. Placement of a retrievable IVC filter below the level of renal veins. The celiac and superior mesenteric angiogram failed to demonstrate any obvious extravasation. Note: It is recommended to retrieve the temporary IVC filter within 3 months, if it is no longer needed. Otherwise, it potentially becomes irretrievable and permanent. Dr. Sara Kennedy was present and performed/supervised the entire procedure. This report was electronically signed by JERARDO KENNEDY M.D. on 02/21/2013 5:27 PM . Narrative 02/21/2013 5:27 PM ACTING INSTRUCTOR History: Patient with necrotizing pancreatitis underwent surgical necrosectomy. Patient was hypotensive and her recent KEYANNA, there was suggestion for large saddle embolus, was referred for mechanical thrombectomy and if needed thrombolysis. Also, there was suspicion for continued bleeding intra-abdominally. The team was requesting for emergency thrombectomy, IVC filter placement and mesenteric angiography. Operators: 1. Dr. Sara Kennedy, Attending Physician Anesthesia: 1. General Anesthesia Procedure: 1. Ultrasound-guided access of right common femoral vein. 2. Selective catheterization of main pulmonary artery and angiogram. 3. Inferior venacavogram. 4. Placement of a retrievable Halley IVC filter below the level of renal veins. 5. Ultrasound guided access of right common femoral artery 6. Selective catheterization of celiac artery with VS2 catheter and angiogram. 7. Selective catheterization of SMA with VS2 catheter and angiogram. Duration of the procedure: Appx 60 minutes. Fluoroscopy time: 9.3 minutes. Contrast used: 130 mL of Omnipaque-240. Procedure in detail: An emergency informed consent was obtained. The patient was already intubated and was managed by anesthesia service. The patient was placed supine on the angiographic table. The right groin was prepped and draped in the usual sterile manner. A pool nurse film of chest demonstrated the tracheostomy tube in place and note was diffuse infiltrative process involving both lung jones. Otherwise, the chest was unremarkable. Limited ultrasound of right groin demonstrated a patent and compressible right common femoral vein. A barber scale image was documented. Under real time ultrasound guidance, using a micropuncture needle, the right common femoral vein was accessed. The needle entry was documented on barber scale ultrasound imaging. Following a series of exchanges, a 0.035 inch wire was advanced into the IVC and an 6 Gambian vascular sheath was placed. Using a 6 Gambian MPA catheter and Glidewire combination the catheter was advanced into the main pulmonary artery. The catheter was then exchanged for a pigtail catheter and pulmonary angiography was obtained in two different projection. The pulmonary angiogram demonstrated normal opacification of main pulmonary artery as well as right and left pulmonary arteries. There is no noticeable filling defect noted in the main as well as proximal right and left pulmonary arteries. Also, the perfusion to both lung jones was uniform. Since there was no filling defect or significant clot burden, no further intervention was planned. The findings were discussed with referring team. Since the patient was bleeding from pancreatic bed, team requested to perform mesenteric angiography for possible embolization of bleeding site, if found. Also, the team was requesting to place an IVC filter as there was reason clot detected on the recent CAT scan. Inferior venacavogram was obtained, which demonstrated normal IVC caliber. There is normal flow-voids noted from the renal veins as well as from left common iliac vein. After, series of exchanges, an IVC delivery sheath was advanced. An retrievable Halley IVC filter was deployed below the level of renal veins under fluoroscopic guidance. Followup venogram demonstrated satisfactory position of the IVC filter below the level of renal veins. The sheath was removed and hemostasis was achieved with manual compression. Under ultrasound guidance, the right common femoral artery was accessed using a micropuncture needle. The needle entry was documented. A wrist series of exchanges a 5 Gambian vascular sheath was placed. Using a VS 2 catheter the celiac artery was catheterized. The angiogram of celiac artery demonstrated normal celiac artery, splenic artery as well as common hepatic arteries. There was no obvious extravasation of contrast noted, including the territory The superior mesenteric artery was then selectively catheterized with VS 2 catheter and an angiogram was obtained. The angiogram demonstrated normal superior mesenteric artery caliber with its main branches including digital, a new correlate and ileal branches. No obvious extravasation was noted in the vicinity of the pancreas. Findings were discussed with the primary team and the sheath was removed and hemostasis was achieved with manual compression. The patient tolerated the procedure well and was transferred to ICU in stable condition. Procedure Note Jerardo Kennedy MD - 07/08/2017 History: Patient with necrotizing pancreatitis underwent surgicalnecrosectomy. Patient was hypotensive and her recent KEYANNA, there wassuggestion for large saddle embolus, was referred for mechanicalthrombectomy and if needed thrombolysis. Also, there was suspicion for continued bleeding intra-abdominally. The team wasrequesting for emergency thrombectomy, IVC filter placement and mesentericangiography. Operators: 1. Dr. aSra Kennedy, Attending Physician Anesthesia: 1. General Anesthesia Procedure: 1. Ultrasound-guided access of right common femoral vein. 2. Selective catheterization of main pulmonary artery and angiogram. 3. Inferior venacavogram. 4. Placement of a retrievable Halley IVC filter below the level of renalveins. 5. Ultrasound guided access of right common femoral artery 6. Selective catheterization of celiac artery with VS2 catheter andangiogram. 7. Selective catheterization of SMA with VS2 catheter and angiogram. Duration of the procedure: Appx 60 minutes. Fluoroscopy time: 9.3 minutes. Contrast used: 130 mL of Omnipaque-240. Procedure in detail: An emergency informed consent was obtained. Thepatient was already intubated and was managed by anesthesia service. The patient was placed supine on the angiographic table. The right groinwas prepped and draped in the usual sterile manner. A pool nurse film of chestdemonstrated the tracheostomy tube in place and note was diffuseinfiltrative process involving both lung jones. Otherwise, the chest was unremarkable. Limited ultrasound of right groin demonstrated a patent and compressibleright common femoral vein. A barber scale image was documented. Under realtime ultrasound guidance, using a micropuncture needle, the right commonfemoral vein was accessed. The needle entry was documented on barber scale ultrasound imaging. Following aseries of exchanges, a 0.035 inch wire was advanced into the IVC and an 6French vascular sheath was placed. Using a 6 Gambian MPA catheter and Glidewire combination the catheter wasadvanced into the main pulmonary artery. The catheter was then exchangedfor a pigtail catheter and pulmonary angiography was obtained in twodifferent projection. The pulmonary angiogram demonstrated normal opacification of main pulmonary artery aswell as right and left pulmonary arteries. There is no noticeable fillingdefect noted in the main as well as proximal right and left pulmonaryarteries. Also, the perfusion to both lung jones was uniform. Since there was no filling defect or significantclot burden, no further intervention was planned. The findings were discussed with referring team. Since the patient wasbleeding from pancreatic bed, team requested to perform mesentericangiography for possible embolization of bleeding site, if found. Also,the team was requesting to place an IVC filter as there was reason clot detected on the recent CAT scan. Inferior venacavogram was obtained, which demonstrated normal IVC caliber.There is normal flow-voids noted from the renal veins as well as from leftcommon iliac vein. After, series of exchanges, an IVC delivery sheath wasadvanced. An retrievable Marathon IVC filter was deployed below the level of renal veins underfluoroscopic guidance. Followup venogram demonstrated satisfactoryposition of the IVC filter below the level of renal veins. The sheath wasremoved and hemostasis was achieved with manual compression. Under ultrasound guidance, the right common femoral artery was accessedusing a micropuncture needle. The needle entry was documented. A wristseries of exchanges a 5 Gambian vascular sheath was placed. Using a VS 2 catheter the celiac artery was catheterized. The angiogram ofceliac artery demonstrated normal celiac artery, splenic artery as wellas common hepatic arteries. There was no obvious extravasation of contrastnoted, including the territory The superior mesenteric artery was then selectively catheterized with VS 2catheter and an angiogram was obtained. The angiogram demonstrated normalsuperior mesenteric artery caliber with its main branches includingdigital, a new correlate and ileal branches. No obvious extravasation was noted in the vicinity of thepancreas. Findings were discussed with the primary team and the sheath was removedand hemostasis was achieved with manual compression. The patient toleratedthe procedure well and was transferred to ICU in stable condition. IMPRESSION Impression: Pulmonary angiogram from main pulmonary artery demonstrated noobvious filling defect suggesting massive pulmonary thrombus. Theperforation on both sides appear to be normal. Note was made of diffuseinfiltrative process seen on both lung jones, which could suggest underlying ARDS. Placement of a retrievable IVC filter below the level of renal veins. The celiac and superior mesenteric angiogram failed to demonstrate anyobvious extravasation. Note: It is recommended to retrieve the temporary IVC filter within 3months, if it is no longer needed. Otherwise, it potentially becomesirretrievable and permanent. Dr. Sara Kennedy was present and performed/supervised the entireprocedure. This report was electronically signed by JERARDO KENNEDY M.D. on02/21/2013 5:27 PM . Cade Mills MD IR ORDERABLES * IR IVC FILTER PLACEMENT (02/13/2013 11:00 AM ACTING INSTRUCTOR) Anatomical Region Laterality Modality Abdomen Other Impressions 02/21/2013 5:27 PM ACTING INSTRUCTOR Impression: Pulmonary angiogram from main pulmonary artery demonstrated no obvious filling defect suggesting massive pulmonary thrombus. The perforation on both sides appear to be normal. Note was made of diffuse infiltrative process seen on both lung jones, which could suggest underlying ARDS. Placement of a retrievable IVC filter below the level of renal veins. The celiac and superior mesenteric angiogram failed to demonstrate any obvious extravasation. Note: It is recommended to retrieve the temporary IVC filter within 3 months, if it is no longer needed. Otherwise, it potentially becomes irretrievable and permanent. Dr. Sara Kennedy was present and performed/supervised the entire procedure. This report was electronically signed by JERARDO KENNEDY M.D. on 02/21/2013 5:27 PM . Narrative 02/21/2013 5:27 PM ACTING INSTRUCTOR History: Patient with necrotizing pancreatitis underwent surgical necrosectomy. Patient was hypotensive and her recent KEYANNA, there was suggestion for large saddle embolus, was referred for mechanical thrombectomy and if needed thrombolysis. Also, there was suspicion for continued bleeding intra-abdominally. The team was requesting for emergency thrombectomy, IVC filter placement and mesenteric angiography. Operators: 1. Dr. Sara Kennedy, Attending Physician Anesthesia: 1. General Anesthesia Procedure: 1. Ultrasound-guided access of right common femoral vein. 2. Selective catheterization of main pulmonary artery and angiogram. 3. Inferior venacavogram. 4. Placement of a retrievable Marathon IVC filter below the level of renal veins. 5. Ultrasound guided access of right common femoral artery 6. Selective catheterization of celiac artery with VS2 catheter and angiogram. 7. Selective catheterization of SMA with VS2 catheter and angiogram. Duration of the procedure: Appx 60 minutes. Fluoroscopy time: 9.3 minutes. Contrast used: 130 mL of Omnipaque-240. Procedure in detail: An emergency informed consent was obtained. The patient was already intubated and was managed by anesthesia service. The patient was placed supine on the angiographic table. The right groin was prepped and draped in the usual sterile manner. A pool nurse film of chest demonstrated the tracheostomy tube in place and note was diffuse infiltrative process involving both lung jones. Otherwise, the chest was unremarkable. Limited ultrasound of right groin demonstrated a patent and compressible right common femoral vein. A barber scale image was documented. Under real time ultrasound guidance, using a micropuncture needle, the right common femoral vein was accessed. The needle entry was documented on barber scale ultrasound imaging. Following a series of exchanges, a 0.035 inch wire was advanced into the IVC and an 6 Gambian vascular sheath was placed. Using a 6 Gambian MPA catheter and Glidewire combination the catheter was advanced into the main pulmonary artery. The catheter was then exchanged for a pigtail catheter and pulmonary angiography was obtained in two different projection. The pulmonary angiogram demonstrated normal opacification of main pulmonary artery as well as right and left pulmonary arteries. There is no noticeable filling defect noted in the main as well as proximal right and left pulmonary arteries. Also, the perfusion to both lung jones was uniform. Since there was no filling defect or significant clot burden, no further intervention was planned. The findings were discussed with referring team. Since the patient was bleeding from pancreatic bed, team requested to perform mesenteric angiography for possible embolization of bleeding site, if found. Also, the team was requesting to place an IVC filter as there was reason clot detected on the recent CAT scan. Inferior venacavogram was obtained, which demonstrated normal IVC caliber. There is normal flow-voids noted from the renal veins as well as from left common iliac vein. After, series of exchanges, an IVC delivery sheath was advanced. An retrievable Marathon IVC filter was deployed below the level of renal veins under fluoroscopic guidance. Followup venogram demonstrated satisfactory position of the IVC filter below the level of renal veins. The sheath was removed and hemostasis was achieved with manual compression. Under ultrasound guidance, the right common femoral artery was accessed using a micropuncture needle. The needle entry was documented. A wrist series of exchanges a 5 Gambian vascular sheath was placed. Using a VS 2 catheter the celiac artery was catheterized. The angiogram of celiac artery demonstrated normal celiac artery, splenic artery as well as common hepatic arteries. There was no obvious extravasation of contrast noted, including the territory The superior mesenteric artery was then selectively catheterized with VS 2 catheter and an angiogram was obtained. The angiogram demonstrated normal superior mesenteric artery caliber with its main branches including digital, a new correlate and ileal branches. No obvious extravasation was noted in the vicinity of the pancreas. Findings were discussed with the primary team and the sheath was removed and hemostasis was achieved with manual compression. The patient tolerated the procedure well and was transferred to ICU in stable condition. Procedure Note Jerardo Kennedy MD - 07/08/2017 History: Patient with necrotizing pancreatitis underwent surgicalnecrosectomy. Patient was hypotensive and her recent KEYANNA, there wassuggestion for large saddle embolus, was referred for mechanicalthrombectomy and if needed thrombolysis. Also, there was suspicion for continued bleeding intra-abdominally. The team wasrequesting for emergency thrombectomy, IVC filter placement and mesentericangiography. Operators: 1. Dr. Sara Kennedy, Attending Physician Anesthesia: 1. General Anesthesia Procedure: 1. Ultrasound-guided access of right common femoral vein. 2. Selective catheterization of main pulmonary artery and angiogram. 3. Inferior venacavogram. 4. Placement of a retrievable Halley IVC filter below the level of renalveins. 5. Ultrasound guided access of right common femoral artery 6. Selective catheterization of celiac artery with VS2 catheter andangiogram. 7. Selective catheterization of SMA with VS2 catheter and angiogram. Duration of the procedure: Appx 60 minutes. Fluoroscopy time: 9.3 minutes. Contrast used: 130 mL of Omnipaque-240. Procedure in detail: An emergency informed consent was obtained. Thepatient was already intubated and was managed by anesthesia service. The patient was placed supine on the angiographic table. The right groinwas prepped and draped in the usual sterile manner. A pool nurse film of chestdemonstrated the tracheostomy tube in place and note was diffuseinfiltrative process involving both lung jones. Otherwise, the chest was unremarkable. Limited ultrasound of right groin demonstrated a patent and compressibleright common femoral vein. A barber scale image was documented. Under realtime ultrasound guidance, using a micropuncture needle, the right commonfemoral vein was accessed. The needle entry was documented on barber scale ultrasound imaging. Following aseries of exchanges, a 0.035 inch wire was advanced into the IVC and an 6French vascular sheath was placed. Using a 6 Gambian MPA catheter and Glidewire combination the catheter wasadvanced into the main pulmonary artery. The catheter was then exchangedfor a pigtail catheter and pulmonary angiography was obtained in twodifferent projection. The pulmonary angiogram demonstrated normal opacification of main pulmonary artery aswell as right and left pulmonary arteries. There is no noticeable fillingdefect noted in the main as well as proximal right and left pulmonaryarteries. Also, the perfusion to both lung jones was uniform. Since there was no filling defect or significantclot burden, no further intervention was planned. The findings were discussed with referring team. Since the patient wasbleeding from pancreatic bed, team requested to perform mesentericangiography for possible embolization of bleeding site, if found. Also,the team was requesting to place an IVC filter as there was reason clot detected on the recent CAT scan. Inferior venacavogram was obtained, which demonstrated normal IVC caliber.There is normal flow-voids noted from the renal veins as well as from leftcommon iliac vein. After, series of exchanges, an IVC delivery sheath wasadvanced. An retrievable Marathon IVC filter was deployed below the level of renal veins underfluoroscopic guidance. Followup venogram demonstrated satisfactoryposition of the IVC filter below the level of renal veins. The sheath wasremoved and hemostasis was achieved with manual compression. Under ultrasound guidance, the right common femoral artery was accessedusing a micropuncture needle. The needle entry was documented. A wristseries of exchanges a 5 Gambian vascular sheath was placed. Using a VS 2 catheter the celiac artery was catheterized. The angiogram ofceliac artery demonstrated normal celiac artery, splenic artery as wellas common hepatic arteries. There was no obvious extravasation of contrastnoted, including the territory The superior mesenteric artery was then selectively catheterized with VS 2catheter and an angiogram was obtained. The angiogram demonstrated normalsuperior mesenteric artery caliber with its main branches includingdigital, a new correlate and ileal branches. No obvious extravasation was noted in the vicinity of thepancreas. Findings were discussed with the primary team and the sheath was removedand hemostasis was achieved with manual compression. The patient toleratedthe procedure well and was transferred to ICU in stable condition. IMPRESSION Impression: Pulmonary angiogram from main pulmonary artery demonstrated noobvious filling defect suggesting massive pulmonary thrombus. Theperforation on both sides appear to be normal. Note was made of diffuseinfiltrative process seen on both lung jones, which could suggest underlying ARDS. Placement of a retrievable IVC filter below the level of renal veins. The celiac and superior mesenteric angiogram failed to demonstrate anyobvious extravasation. Note: It is recommended to retrieve the temporary IVC filter within 3months, if it is no longer needed. Otherwise, it potentially becomesirretrievable and permanent. Dr. Sara Kennedy was present and performed/supervised the entireprocedure. This report was electronically signed by JERARDO KENNEDY M.D. on02/21/2013 5:27 PM . Cade Mills MD IR ORDERABLES * IR PULMONARY ANGIOGRAM BILAT (02/13/2013 11:00 AM ACTING INSTRUCTOR) Anatomical Region Laterality Modality Lung Other Impressions 02/21/2013 5:27 PM ACTING INSTRUCTOR Impression: Pulmonary angiogram from main pulmonary artery demonstrated no obvious filling defect suggesting massive pulmonary thrombus. The perforation on both sides appear to be normal. Note was made of diffuse infiltrative process seen on both lung jones, which could suggest underlying ARDS. Placement of a retrievable IVC filter below the level of renal veins. The celiac and superior mesenteric angiogram failed to demonstrate any obvious extravasation. Note: It is recommended to retrieve the temporary IVC filter within 3 months, if it is no longer needed. Otherwise, it potentially becomes irretrievable and permanent. Dr. Sara Kennedy was present and performed/supervised the entire procedure. This report was electronically signed by JERARDO KENNEDY M.D. on 02/21/2013 5:27 PM . Narrative 02/21/2013 5:27 PM ACTING INSTRUCTOR History: Patient with necrotizing pancreatitis underwent surgical necrosectomy. Patient was hypotensive and her recent KEYANNA, there was suggestion for large saddle embolus, was referred for mechanical thrombectomy and if needed thrombolysis. Also, there was suspicion for continued bleeding intra-abdominally. The team was requesting for emergency thrombectomy, IVC filter placement and mesenteric angiography. Operators: 1. Dr. Sara Kennedy, Attending Physician Anesthesia: 1. General Anesthesia Procedure: 1. Ultrasound-guided access of right common femoral vein. 2. Selective catheterization of main pulmonary artery and angiogram. 3. Inferior venacavogram. 4. Placement of a retrievable Halley IVC filter below the level of renal veins. 5. Ultrasound guided access of right common femoral artery 6. Selective catheterization of celiac artery with VS2 catheter and angiogram. 7. Selective catheterization of SMA with VS2 catheter and angiogram. Duration of the procedure: Appx 60 minutes. Fluoroscopy time: 9.3 minutes. Contrast used: 130 mL of Omnipaque-240. Procedure in detail: An emergency informed consent was obtained. The patient was already intubated and was managed by anesthesia service. The patient was placed supine on the angiographic table. The right groin was prepped and draped in the usual sterile manner. A pool nurse film of chest demonstrated the tracheostomy tube in place and note was diffuse infiltrative process involving both lung jones. Otherwise, the chest was unremarkable. Limited ultrasound of right groin demonstrated a patent and compressible right common femoral vein. A barber scale image was documented. Under real time ultrasound guidance, using a micropuncture needle, the right common femoral vein was accessed. The needle entry was documented on barber scale ultrasound imaging. Following a series of exchanges, a 0.035 inch wire was advanced into the IVC and an 6 Gambian vascular sheath was placed. Using a 6 Gambian MPA catheter and Glidewire combination the catheter was advanced into the main pulmonary artery. The catheter was then exchanged for a pigtail catheter and pulmonary angiography was obtained in two different projection. The pulmonary angiogram demonstrated normal opacification of main pulmonary artery as well as right and left pulmonary arteries. There is no noticeable filling defect noted in the main as well as proximal right and left pulmonary arteries. Also, the perfusion to both lung jones was uniform. Since there was no filling defect or significant clot burden, no further intervention was planned. The findings were discussed with referring team. Since the patient was bleeding from pancreatic bed, team requested to perform mesenteric angiography for possible embolization of bleeding site, if found. Also, the team was requesting to place an IVC filter as there was reason clot detected on the recent CAT scan. Inferior venacavogram was obtained, which demonstrated normal IVC caliber. There is normal flow-voids noted from the renal veins as well as from left common iliac vein. After, series of exchanges, an IVC delivery sheath was advanced. An retrievable Halley IVC filter was deployed below the level of renal veins under fluoroscopic guidance. Followup venogram demonstrated satisfactory position of the IVC filter below the level of renal veins. The sheath was removed and hemostasis was achieved with manual compression. Under ultrasound guidance, the right common femoral artery was accessed using a micropuncture needle. The needle entry was documented. A wrist series of exchanges a 5 Gambian vascular sheath was placed. Using a VS 2 catheter the celiac artery was catheterized. The angiogram of celiac artery demonstrated normal celiac artery, splenic artery as well as common hepatic arteries. There was no obvious extravasation of contrast noted, including the territory The superior mesenteric artery was then selectively catheterized with VS 2 catheter and an angiogram was obtained. The angiogram demonstrated normal superior mesenteric artery caliber with its main branches including digital, a new correlate and ileal branches. No obvious extravasation was noted in the vicinity of the pancreas. Findings were discussed with the primary team and the sheath was removed and hemostasis was achieved with manual compression. The patient tolerated the procedure well and was transferred to ICU in stable condition. Procedure Note Jerardo Kennedy MD - 07/08/2017 History: Patient with necrotizing pancreatitis underwent surgicalnecrosectomy. Patient was hypotensive and her recent KEYANNA, there wassuggestion for large saddle embolus, was referred for mechanicalthrombectomy and if needed thrombolysis. Also, there was suspicion for continued bleeding intra-abdominally. The team wasrequesting for emergency thrombectomy, IVC filter placement and mesentericangiography. Operators: 1. Dr. Sara Kennedy, Attending Physician Anesthesia: 1. General Anesthesia Procedure: 1. Ultrasound-guided access of right common femoral vein. 2. Selective catheterization of main pulmonary artery and angiogram. 3. Inferior venacavogram. 4. Placement of a retrievable Halley IVC filter below the level of renalveins. 5. Ultrasound guided access of right common femoral artery 6. Selective catheterization of celiac artery with VS2 catheter andangiogram. 7. Selective catheterization of SMA with VS2 catheter and angiogram. Duration of the procedure: Appx 60 minutes. Fluoroscopy time: 9.3 minutes. Contrast used: 130 mL of Omnipaque-240. Procedure in detail: An emergency informed consent was obtained. Thepatient was already intubated and was managed by anesthesia service. The patient was placed supine on the angiographic table. The right groinwas prepped and draped in the usual sterile manner. A pool nurse film of chestdemonstrated the tracheostomy tube in place and note was diffuseinfiltrative process involving both lung jones. Otherwise, the chest was unremarkable. Limited ultrasound of right groin demonstrated a patent and compressibleright common femoral vein. A barber scale image was documented. Under realtime ultrasound guidance, using a micropuncture needle, the right commonfemoral vein was accessed. The needle entry was documented on barber scale ultrasound imaging. Following aseries of exchanges, a 0.035 inch wire was advanced into the IVC and an 6French vascular sheath was placed. Using a 6 Gambian MPA catheter and Glidewire combination the catheter wasadvanced into the main pulmonary artery. The catheter was then exchangedfor a pigtail catheter and pulmonary angiography was obtained in twodifferent projection. The pulmonary angiogram demonstrated normal opacification of main pulmonary artery aswell as right and left pulmonary arteries. There is no noticeable fillingdefect noted in the main as well as proximal right and left pulmonaryarteries. Also, the perfusion to both lung jones was uniform. Since there was no filling defect or significantclot burden, no further intervention was planned. The findings were discussed with referring team. Since the patient wasbleeding from pancreatic bed, team requested to perform mesentericangiography for possible embolization of bleeding site, if found. Also,the team was requesting to place an IVC filter as there was reason clot detected on the recent CAT scan. Inferior venacavogram was obtained, which demonstrated normal IVC caliber.There is normal flow-voids noted from the renal veins as well as from leftcommon iliac vein. After, series of exchanges, an IVC delivery sheath wasadvanced. An retrievable Halley IVC filter was deployed below the level of renal veins underfluoroscopic guidance. Followup venogram demonstrated satisfactoryposition of the IVC filter below the level of renal veins. The sheath wasremoved and hemostasis was achieved with manual compression. Under ultrasound guidance, the right common femoral artery was accessedusing a micropuncture needle. The needle entry was documented. A wristseries of exchanges a 5 Gambian vascular sheath was placed. Using a VS 2 catheter the celiac artery was catheterized. The angiogram ofceliac artery demonstrated normal celiac artery, splenic artery as wellas common hepatic arteries. There was no obvious extravasation of contrastnoted, including the territory The superior mesenteric artery was then selectively catheterized with VS 2catheter and an angiogram was obtained. The angiogram demonstrated normalsuperior mesenteric artery caliber with its main branches includingdigital, a new correlate and ileal branches. No obvious extravasation was noted in the vicinity of thepancreas. Findings were discussed with the primary team and the sheath was removedand hemostasis was achieved with manual compression. The patient toleratedthe procedure well and was transferred to ICU in stable condition. IMPRESSION Impression: Pulmonary angiogram from main pulmonary artery demonstrated noobvious filling defect suggesting massive pulmonary thrombus. Theperforation on both sides appear to be normal. Note was made of diffuseinfiltrative process seen on both lung jones, which could suggest underlying ARDS. Placement of a retrievable IVC filter below the level of renal veins. The celiac and superior mesenteric angiogram failed to demonstrate anyobvious extravasation. Note: It is recommended to retrieve the temporary IVC filter within 3months, if it is no longer needed. Otherwise, it potentially becomesirretrievable and permanent. Dr. Saar Kennedy was present and performed/supervised the entireprocedure. This report was electronically signed by JERARDO KENNEDY M.D. on02/21/2013 5:27 PM . Cade Mills MD IR ORDERABLES * IR VISCERAL ANGIO (02/13/2013 11:00 AM ACTING INSTRUCTOR) Only the most recent of2 resultswithin the time period is included. Anatomical Region Laterality Modality Abdomen Other Impressions 02/21/2013 5:27 PM ACTING INSTRUCTOR Impression: Pulmonary angiogram from main pulmonary artery demonstrated no obvious filling defect suggesting massive pulmonary thrombus. The perforation on both sides appear to be normal. Note was made of diffuse infiltrative process seen on both lung jones, which could suggest underlying ARDS. Placement of a retrievable IVC filter below the level of renal veins. The celiac and superior mesenteric angiogram failed to demonstrate any obvious extravasation. Note: It is recommended to retrieve the temporary IVC filter within 3 months, if it is no longer needed. Otherwise, it potentially becomes irretrievable and permanent. Dr. Sara Kennedy was present and performed/supervised the entire procedure. This report was electronically signed by JERARDO KENNEDY M.D. on 02/21/2013 5:27 PM . Narrative 02/21/2013 5:27 PM ACTING INSTRUCTOR History: Patient with necrotizing pancreatitis underwent surgical necrosectomy. Patient was hypotensive and her recent KEYANNA, there was suggestion for large saddle embolus, was referred for mechanical thrombectomy and if needed thrombolysis. Also, there was suspicion for continued bleeding intra-abdominally. The team was requesting for emergency thrombectomy, IVC filter placement and mesenteric angiography. Operators: 1. Dr. Sara Kennedy, Attending Physician Anesthesia: 1. General Anesthesia Procedure: 1. Ultrasound-guided access of right common femoral vein. 2. Selective catheterization of main pulmonary artery and angiogram. 3. Inferior venacavogram. 4. Placement of a retrievable Marathon IVC filter below the level of renal veins. 5. Ultrasound guided access of right common femoral artery 6. Selective catheterization of celiac artery with VS2 catheter and angiogram. 7. Selective catheterization of SMA with VS2 catheter and angiogram. Duration of the procedure: Appx 60 minutes. Fluoroscopy time: 9.3 minutes. Contrast used: 130 mL of Omnipaque-240. Procedure in detail: An emergency informed consent was obtained. The patient was already intubated and was managed by anesthesia service. The patient was placed supine on the angiographic table. The right groin was prepped and draped in the usual sterile manner. A pool nurse film of chest demonstrated the tracheostomy tube in place and note was diffuse infiltrative process involving both lung jones. Otherwise, the chest was unremarkable. Limited ultrasound of right groin demonstrated a patent and compressible right common femoral vein. A barber scale image was documented. Under real time ultrasound guidance, using a micropuncture needle, the right common femoral vein was accessed. The needle entry was documented on barber scale ultrasound imaging. Following a series of exchanges, a 0.035 inch wire was advanced into the IVC and an 6 Gambian vascular sheath was placed. Using a 6 Gambian MPA catheter and Glidewire combination the catheter was advanced into the main pulmonary artery. The catheter was then exchanged for a pigtail catheter and pulmonary angiography was obtained in two different projection. The pulmonary angiogram demonstrated normal opacification of main pulmonary artery as well as right and left pulmonary arteries. There is no noticeable filling defect noted in the main as well as proximal right and left pulmonary arteries. Also, the perfusion to both lung jones was uniform. Since there was no filling defect or significant clot burden, no further intervention was planned. The findings were discussed with referring team. Since the patient was bleeding from pancreatic bed, team requested to perform mesenteric angiography for possible embolization of bleeding site, if found. Also, the team was requesting to place an IVC filter as there was reason clot detected on the recent CAT scan. Inferior venacavogram was obtained, which demonstrated normal IVC caliber. There is normal flow-voids noted from the renal veins as well as from left common iliac vein. After, series of exchanges, an IVC delivery sheath was advanced. An retrievable Marathon IVC filter was deployed below the level of renal veins under fluoroscopic guidance. Followup venogram demonstrated satisfactory position of the IVC filter below the level of renal veins. The sheath was removed and hemostasis was achieved with manual compression. Under ultrasound guidance, the right common femoral artery was accessed using a micropuncture needle. The needle entry was documented. A wrist series of exchanges a 5 Gambian vascular sheath was placed. Using a VS 2 catheter the celiac artery was catheterized. The angiogram of celiac artery demonstrated normal celiac artery, splenic artery as well as common hepatic arteries. There was no obvious extravasation of contrast noted, including the territory The superior mesenteric artery was then selectively catheterized with VS 2 catheter and an angiogram was obtained. The angiogram demonstrated normal superior mesenteric artery caliber with its main branches including digital, a new correlate and ileal branches. No obvious extravasation was noted in the vicinity of the pancreas. Findings were discussed with the primary team and the sheath was removed and hemostasis was achieved with manual compression. The patient tolerated the procedure well and was transferred to ICU in stable condition. Procedure Note Jerardo Kennedy MD - 07/08/2017 History: Patient with necrotizing pancreatitis underwent surgicalnecrosectomy. Patient was hypotensive and her recent KEYANNA, there wassuggestion for large saddle embolus, was referred for mechanicalthrombectomy and if needed thrombolysis. Also, there was suspicion for continued bleeding intra-abdominally. The team wasrequesting for emergency thrombectomy, IVC filter placement and mesentericangiography. Operators: 1. Dr. Sara Kennedy, Attending Physician Anesthesia: 1. General Anesthesia Procedure: 1. Ultrasound-guided access of right common femoral vein. 2. Selective catheterization of main pulmonary artery and angiogram. 3. Inferior venacavogram. 4. Placement of a retrievable Halley IVC filter below the level of renalveins. 5. Ultrasound guided access of right common femoral artery 6. Selective catheterization of celiac artery with VS2 catheter andangiogram. 7. Selective catheterization of SMA with VS2 catheter and angiogram. Duration of the procedure: Appx 60 minutes. Fluoroscopy time: 9.3 minutes. Contrast used: 130 mL of Omnipaque-240. Procedure in detail: An emergency informed consent was obtained. Thepatient was already intubated and was managed by anesthesia service. The patient was placed supine on the angiographic table. The right groinwas prepped and draped in the usual sterile manner. A pool nurse film of chestdemonstrated the tracheostomy tube in place and note was diffuseinfiltrative process involving both lung jones. Otherwise, the chest was unremarkable. Limited ultrasound of right groin demonstrated a patent and compressibleright common femoral vein. A barber scale image was documented. Under realtime ultrasound guidance, using a micropuncture needle, the right commonfemoral vein was accessed. The needle entry was documented on barber scale ultrasound imaging. Following aseries of exchanges, a 0.035 inch wire was advanced into the IVC and an 6French vascular sheath was placed. Using a 6 Gambian MPA catheter and Glidewire combination the catheter wasadvanced into the main pulmonary artery. The catheter was then exchangedfor a pigtail catheter and pulmonary angiography was obtained in twodifferent projection. The pulmonary angiogram demonstrated normal opacification of main pulmonary artery aswell as right and left pulmonary arteries. There is no noticeable fillingdefect noted in the main as well as proximal right and left pulmonaryarteries. Also, the perfusion to both lung jones was uniform. Since there was no filling defect or significantclot burden, no further intervention was planned. The findings were discussed with referring team. Since the patient wasbleeding from pancreatic bed, team requested to perform mesentericangiography for possible embolization of bleeding site, if found. Also,the team was requesting to place an IVC filter as there was reason clot detected on the recent CAT scan. Inferior venacavogram was obtained, which demonstrated normal IVC caliber.There is normal flow-voids noted from the renal veins as well as from leftcommon iliac vein. After, series of exchanges, an IVC delivery sheath wasadvanced. An retrievable Halley IVC filter was deployed below the level of renal veins underfluoroscopic guidance. Followup venogram demonstrated satisfactoryposition of the IVC filter below the level of renal veins. The sheath wasremoved and hemostasis was achieved with manual compression. Under ultrasound guidance, the right common femoral artery was accessedusing a micropuncture needle. The needle entry was documented. A wristseries of exchanges a 5 Gambian vascular sheath was placed. Using a VS 2 catheter the celiac artery was catheterized. The angiogram ofceliac artery demonstrated normal celiac artery, splenic artery as wellas common hepatic arteries. There was no obvious extravasation of contrastnoted, including the territory The superior mesenteric artery was then selectively catheterized with VS 2catheter and an angiogram was obtained. The angiogram demonstrated normalsuperior mesenteric artery caliber with its main branches includingdigital, a new correlate and ileal branches. No obvious extravasation was noted in the vicinity of thepancreas. Findings were discussed with the primary team and the sheath was removedand hemostasis was achieved with manual compression. The patient toleratedthe procedure well and was transferred to ICU in stable condition. IMPRESSION Impression: Pulmonary angiogram from main pulmonary artery demonstrated noobvious filling defect suggesting massive pulmonary thrombus. Theperforation on both sides appear to be normal. Note was made of diffuseinfiltrative process seen on both lung jones, which could suggest underlying ARDS. Placement of a retrievable IVC filter below the level of renal veins. The celiac and superior mesenteric angiogram failed to demonstrate anyobvious extravasation. Note: It is recommended to retrieve the temporary IVC filter within 3months, if it is no longer needed. Otherwise, it potentially becomesirretrievable and permanent. Dr. Sara Kennedy was present and performed/supervised the entireprocedure. This report was electronically signed by JERARDO KENNEDY M.D. on02/21/2013 5:27 PM . Cade Mills MD IR ORDERABLES * (ABNORMAL) FIBRINOGEN CLAUSS (02/13/2013 7:15 AM ACTING INSTRUCTOR) Fibrinogen Clauss 161(L) 170 - 400 mg/dL [facility] 02/13/2013 7:15 AM ACTING INSTRUCTOR 02/13/2013 7:15 AM ACTING INSTRUCTOR Narrative [facility] - 02/13/2013 7:30 AM ACTING INSTRUCTOR IS PATIENT ON HEPARIN? (Y OR N) N Maura Hernandez MD LAB - COAGULATION OR DERABLES [facility] [address] [phone] * PATHOLOGY TISSUE (02/13/2013 7:01 AM ACTING INSTRUCTOR) AP Surg () [facility] Comment: CLINICAL HISTORY: The patient is a 22 year old woman with a history of abdominal compartmental syndrome who underwent an exploratory laparotomy. FINAL DIAGNOSIS: OMENTUM, RESECTION: - ACUTE INFLAMMATION, HEMORRHAGE, FIBROSIS GROSS DESCRIPTION: The specimen is submitted fixed in formalin for gross and microscopic examination, labeled with two labels, Thuis, Thalia A. and omentum and the other label says inflammatory rind . The specimen consists of a hemorrhagic soft pink-conte fibrous tissue and blood clots with an aggregate measurement of 21 x 14 x 6.5 cm. Consultant Internship sections are submitted as A1. AJ/kaiden MICROSCOPIC DESCRIPTION: The adipose tissue has abundant fibrosis, acute inflammation, and hemorrhage. CLINICAL REVIEW NURSE/AJ/edk The performance characteristics of all immunohistochemical and indirect immunofluorescence stains (if any) cited in this report were determined by the [facility] in compliance with CLIA '88 regulations. Some of these tests rely on the use of analyte-specific reagents and are subject to specific labeling requirements by the FDA. Such tests were developed by the [facility] and have not been cleared or approved by the FDA. The FDA has determined that such clearance or approval is not necessary. These tests are used for clinical purposes and should not be regarded as investigational or for research. This case has been personally reviewed and interpreted by the attending (teaching) pathologist. Final Diagnosis performed by Leidy Cruz MD. Electronically signed 02/14/2013 02/13/2013 7:01 AM ACTING INSTRUCTOR 02/13/2013 11:02 AM ACTING INSTRUCTOR Narrative [facility] - 02/14/2013 5:46 PM ACTING INSTRUCTOR PRE-OP DIAGNOSIS: Abdominal Compartmental Sydrome OPERATIVE PROCEDURE / FINDINGS: Procedure(s) with comments: EXPLORATORY LAPAROTOMY POST-OP DIAGNOSIS: * No post-op diagnosis entered * Collection Date->02/13/13 Collection Time-> 7:01 AM Specimen A->Tissue omentum, inflammatory rind Maura Hernandez MD LAB - PATHOLOGY/CYTO LOGY ORDERABLES Performing Organization Address [facility]/[place] Co de Phone Number [address] [phone] * CULTURE AFB (02/13/2013 6:30 AM ACTING INSTRUCTOR) Only the most recent of2 resultswithin the time period is included. Culture Acid-Fast Bacilli NO GROWTH OF ACID FAST BACILLI AFTER 8 WEEKS. [facility] Fluid specimen (specimen) (Unspecified) 02/13/2013 6:30 AM ACTING INSTRUCTOR 02/13/2013 6:57 AM ACTING INSTRUCTOR Narrative [facility] - 04/17/2013 11:24 AM ACTING INSTRUCTOR PANCREATIC DEBRIDEMENT Specimen Type->Body fluid, unspecified Maura Hernandez MD LAB - MICROBIOLOGY O SOCRATES Performing Organization Address [facility]/[place] Co de Phone Number [address] [phone] * CULTURE FUNGUS OTHER+FUNGUS SMEAR (02/13/2013 6:30 AM ACTING INSTRUCTOR) Only the most recent of3 resultswithin the time period is included. Culture Fungus-Other NO GROWTH FUNGI. [facility] Fluid specimen (specimen) ENTIRE PANCREAS / Unknown 02/13/2013 6:30 AM ACTING INSTRUCTOR 02/13/2013 6:54 AM ACTING INSTRUCTOR Narrative [facility] - 03/19/2013 10:53 AM ACTING INSTRUCTOR PANCREATIC DEBRIDEMENT Specimen Type->Body fluid, unspecified FUNGUS SMEAR ADDED PER PROTOCOL Maura Hernandez MD LAB - MICROBIOLOGY O SOCRATES Performing Organization Address [facility]/[place] Co de Phone Number [address] [phone] * CULTURE AEROBIC (02/13/2013 6:30 AM ACTING INSTRUCTOR) Only the most recent of3 resultswithin the time period is included. Culture Routine NO GROWTH AFTER ONE WEEK. [facility] Fluid specimen (specimen) ENTIRE PANCREAS / Unknown 02/13/2013 6:30 AM ACTING INSTRUCTOR 02/13/2013 6:54 AM ACTING INSTRUCTOR Narrative [facility] - 02/20/2013 1:55 PM ACTING INSTRUCTOR PANCREATIC DEBRIDEMENT Specimen Type->Body fluid, unspecified FUNGUS SMEAR ADDED PER PROTOCOL Maura Hernandez MD LAB - MICROBIOLOGY O RDERABLES Performing Organization Address City/State/[place] Co de Phone Number [address] [phone] * VIRAL CULTURE MISC (02/13/2013 6:30 AM ACTING INSTRUCTOR) Viral Culture General No virus isolated. . [facility] Comment: Performed at: [address] [id number] Skilled Nursing Case Manager: Wesley Mercer MD, Phone: [phone] Preliminary Report: No virus isolated at 4 days. Next report to follow after 7 days. Performed at: [address] [id number] Skilled Nursing Case Manager: Wesley Mercer MD, Phone: [phone] Preliminary Report: No virus isolated at 24 hours. Next report to follow after 4 days. Performed at: [address] [id number] Skilled Nursing Case Manager: Wesley Mercer MD, Phone: [phone] !! EDITED OR CORRECTED RESULTS !! RESULT PREVIOUSLY REPORTED : Preliminary Report: No virus isolated at 24 hours. Next report to follow after 4 days. Performed at: [address] [id number] Skilled Nursing Case Manager: Wesley Mercer MD, Phone: [phone] NOTIFIED [] AT 1322 ON 02/18/13 !! EDITED OR CORRECTED RESULTS !! RESULT PREVIOUSLY REPORTED : Preliminary Report: No virus isolated at 4 days. Next report to follow after 7 days. Performed at: [address] [id number] Skilled Nursing Case Manager: Wesley Mercer MD, Phone: [phone] Preliminary Report: No virus isolated at 24 hours. Next report to follow after 4 days. Performed at: [facility] [address] [id number] Skilled Nursing Case Manager: Wesley Mercer MD, Phone: [phone] !! EDITED OR CORRECTED RESULTS !! RESULT PREVIOUSLY REPORTED : Preliminary Report: No virus isolated at 24 hours. Next report to follow after 4 days. Performed at: [facility] [address] [id number] Skilled Nursing Case Manager: Wesley Mercer MD, Phone: [phone] NOTIFIED [] AT 1322 ON 02/18/13 NOTIFIED [] AT 0829 ON 02/22/13 Fluid specimen (specimen) ENTIRE PANCREAS / Unknown 02/13/2013 6:30 AM ACTING INSTRUCTOR 02/13/2013 6:58 AM ACTING INSTRUCTOR Narrative [facility] - 02/22/2013 8:29 AM ACTING INSTRUCTOR PANCREATIC DEBRIDEMENT Specimen Type->Body fluid, unspecified SPECIMEN SOURCE? BODY FLUID Maura Hernandez MD LAB - MICROBIOLOGY O SOCRATES Performing Organization Address [facility] Co de Phone Number [address] [phone] * AFB SMEAR (02/13/2013 6:30 AM ACTING INSTRUCTOR) Only the most recent of2 resultswithin the time period is included. Acid-Fast Bacilli Smear NO ACID FAST BACILLI SEEN. [facility] Fluid specimen (specimen) (Unspecified) 02/13/2013 6:30 AM ACTING INSTRUCTOR 02/13/2013 6:57 AM ACTING INSTRUCTOR Narrative [facility] - 02/14/2013 3:37 PM ACTING INSTRUCTOR PANCREATIC DEBRIDEMENT Specimen Type->Body fluid, unspecified Maura Hernandez MD LAB - MICROBIOLOGY O SOCRATES Performing Organization Address [facility] Co de Phone Number [address] [phone] * GRAM STAIN SMEAR (02/13/2013 6:30 AM ACTING INSTRUCTOR) Only the most recent of3 resultswithin the time period is included. Gram Stain NO ORGANISMS SEEN. GRAM STAINS ARE ROUTINELY SCREENED FOR THE PRESENCE OF POLYMORPHONUC LEAR CELLS. [facility] Culture Results [facility] Fluid specimen (specimen) ENTIRE PANCREAS / Unknown 02/13/2013 6:30 AM ACTING INSTRUCTOR 02/13/2013 6:54 AM ACTING INSTRUCTOR Narrative [facility] - 02/13/2013 2:11 PM ACTING INSTRUCTOR PANCREATIC DEBRIDEMENT Specimen Type->Body fluid, unspecified FUNGUS SMEAR ADDED PER PROTOCOL Maura Hernandez MD LAB - MICROBIOLOGY O SOCRATES Performing Organization Address [facility] Co de Phone Number [address] [phone] * FUNGUS SMEAR (02/13/2013 6:30 AM ACTING INSTRUCTOR) Only the most recent of3 resultswithin the time period is included. Fungus Smear NO FUNGI SEEN. [facility] Fluid specimen (specimen) 02/13/2013 6:30 AM ACTING INSTRUCTOR 02/13/2013 6:54 AM ACTING INSTRUCTOR Narrative [facility] - 02/14/2013 3:48 PM ACTING INSTRUCTOR FUNGUS SMEAR ADDED PER PROTOCOL Maura Hernandez MD LAB - MICROBIOLOGY O SOCRATES Performing Organization Address [facility] Co de Phone Number [address] [phone] * CULTURE ANAEROBE (02/13/2013 6:30 AM ACTING INSTRUCTOR) Only the most recent of3 resultswithin the time period is included. Culture Anaerobic NO GROWTH AFTER 48 HOURS. NO GROWTH AFTER ONE WEEK. [facility] Culture Results [facility] Fluid specimen (specimen) ENTIRE PANCREAS / Unknown 02/13/2013 6:30 AM ACTING INSTRUCTOR 02/13/2013 6:54 AM ACTING INSTRUCTOR Narrative [facility] - 02/20/2013 6:30 PM ACTING INSTRUCTOR PANCREATIC DEBRIDEMENT Specimen Type->Body fluid, unspecified FUNGUS SMEAR ADDED PER PROTOCOL Maura Hernandez MD LAB - MICROBIOLOGY Keegan CROWELL Performing Organization Address [facility]/ZIP Co de Phone Number [address] [phone] * BLOOD TYPE ABO+ RH PANEL (02/12/2013 7:00 PM ACTING INSTRUCTOR) Only the most recent of3 resultswithin the time period is included. Interpretation ABO/Rh Patient A POS [facility] 02/12/2013 7:00 PM ACTING INSTRUCTOR 02/12/2013 7:12 PM ACTING INSTRUCTOR Sesar Bhat LAB - BLOOD BANK ORD ERABLES [address] [phone] * PREPARE PLATELET PHERESIS UNIT(S) (02/12/2013 6:45 PM ACTING INSTRUCTOR) Blood Product [id number] A+ SDP-WBCD TRANSFUSED 02/13/13 0001 [facility] 02/12/2013 6:45 PM ACTING INSTRUCTOR 02/12/2013 6:45 PM ACTING INSTRUCTOR Sesar Bhat LAB - BLOOD [place] [address], [facility] [phone] * PREPARE FFP UNIT(S) (02/12/2013 6:45 PM ACTING INSTRUCTOR) Blood Product [id number] AB- FFP-T TRANSFUSED 02/12/13 190 [id number] AB+ FFP-T TRANSFUSED 02/12/13 193 [id number] A+ FFP-T TRANSFUSED 02/13/13 0001 [id number] A+ FFP-T TRANSFUSED 02/13/13 0001 [id number] A+ FFP-T TRANSFUSED 02/13/13 0001 [id number] A- FFP-T TRANSFUSED 02/13/13521 [id number] A+ FFP-T TRANSFUSED 02/13/13 0001 [id number] A+ FFP-T TRANSFUSED 02/13/13521 [id number] A+ FFP-T TRANSFUSED 02/13/13 0522 [facility] 02/12/2013 6:45 PM ACTING INSTRUCTOR 02/12/2013 6:45 PM ACTING INSTRUCTOR Sesar Bhat DO LAB - BLOOD BANK ORD ERABLES [facility] [address] [place] [address] * CT CHEST ABDOMEN PELVIS W CONT (02/12/2013 5:55 PM ACTING INSTRUCTOR) Anatomical Region Laterality Modality Chest, Abdomen, Pelvis Other Impressions 02/13/2013 5:36 PM ACTING INSTRUCTOR IMPRESSION: 1. A large left abdominal hemorrhagic fluid collection, new since prior examination. A small blush of enhancement at the pancreatic tail may represent an area of active hemorrhage. 2. Hyperenhancing small bowel loops in the setting of a collapsed IVC and intra-abdominal hemorrhagic fluid collection is concerning for shock bowel. 3. Increased intraparenchymal and peripancreatic fluid collections with little residual enhancing pancreatic tissue, compatible with necrotizing pancreatitis. 4. Increased moderate volume intra-abdominal and pelvic free fluid demonstrating increased attenuation which may represent hemorrhagic ascites. 5. Residual right lower lobe segmental and subsegmental artery pulmonary embolus, decreased since 02/04/2013. The preliminary findings were discussed with Dr. Ambrocio by Dr. Craven on 02/12/2013 at 6:05 PM This report was approved by Danii AliciaO. on 02/13/2013 9:58 AM . I, Dr. REYMUNDO BRAVO M.D. have personally reviewed and interpreted this examination/study. This report was electronically signed by REYMUNDO BRAVO M.D. on 02/13/2013 5:36 PM . Narrative 02/13/2013 5:36 PM ACTING INSTRUCTOR EXAMINATION: Computed tomography of the chest, abdomen, and pelvis with contrast HISTORY: Chest and abdominal pain TECHNIQUE: Computed tomography of the chest, abdomen, and pelvis was performed following the uneventful administration of 100 mL Omnipaque 350 intravenous contrast according to standard protocol. FINDINGS: Comparison is made with CT chest, abdomen and pelvis on 02/04/2013 Chest: The lungs are free of focal consolidations. A 3 mm right lower lobe pulmonary nodule (image 61, series 6) is unchanged. There is no pleural effusion or pneumothorax. There is no supraclavicular, axillary, mediastinal or hilar lymphadenopathy. The left-sided aortic arch is normal in course and caliber. There is a residual right lower lobe segmental and subsegmental artery pulmonary embolus which is decreased since 02/04/2013. The remaining enhanced vascular structures are normal. The heart size is normal. There is no pericardial effusion. Abdomen and Pelvis: There has been interval development of 2 loculated fluid collections in the gastrohepatic ligamentous region measuring approximately 4.2 x 6.4 cm and 4.3 x 2.2 cm and may be subcapsular. The gallbladder is surgically absent. There is no intrahepatic or extrahepatic biliary ductal dilatation. Little residual pancreatic tissue is demonstrated which demonstrates decreased enhancement and increased heterogeneity since the prior examination. This is concerning for ongoing acute pancreatitis. A pancreatic duct stent is unchanged in position. The large fluid collection along the anterior pancreas now measures approximately 5.6 x 3.8 cm (previously measuring 5.0 x 3.0 cm). A fluid collection involving the head of the pancreas is new and measures approximately 2.4 x 2.7 cm (image 115, series 5). A large fluid collection along the inferior border of the spleen is new, demonstrates mixed attenuation, representing layering hematocrit, and measures approximately 12.4 x 8.8 cm (image 158, series 5), narrowing the splenic flexure of the colon. A small blush of enhancement at the pancreatic tail in this region may represent active hemorrhage. A loculated fluid collection in the anterior abdomen has slightly decreased and measures approximately 7.3 x 3.8 cm (previously measuring 7.6 x 4.4 cm). There is heterogeneous enhancement of the spleen. The splenic vein is markedly diminutive, previously normal in size. The adrenal glands are normal. Multiple bilateral renal cysts appear grossly unchanged. The kidneys otherwise enhance symmetrically bilaterally. There is no hydronephrosis or hydroureter. There is a rim-enhancing fluid collection along the superior aspect of the greater curvature of the stomach measuring fluid attenuation which is decreased in size since the prior examination and now measures approximately 2.4 x 4.4 cm (previously measuring 2.8 x 5.4 cm). Along the inferior aspect of the greater curvature, there are increased complex fluid collections resulting in mass effect on the stomach, particularly the distal gastric body and antrum. There is mild thickening of the distal esophagus, likely secondary to reflux esophagitis. There is increased enhancement of multiple small bowel loops suggesting shock bowel. The small and large bowel are somewhat compressed by the large intra-abdominal fluid collections. A normal appendix is seen in the right lower quadrant. Multiple subcentimeter mesenteric and retroperitoneal lymph nodes are noted. There is a moderate volume of intra- abdominal free fluid extending into the pelvis demonstrating slightly increased attenuation and may be hemorrhagic. There is stranding throughout the mesentery. The abdominal aorta is normal in course and caliber. The inferior vena cava is flattened, suggesting hypovolemia. The remaining enhanced abdominal vascular structures are normal. A Gorman catheter terminates in the urinary bladder which is decompressed. The uterus is normal. Bone windows demonstrate no suspicious lytic or blastic lesions. Procedure Note Reymundo Bravo MD - 07/08/2017 EXAMINATION: Computed tomography of the chest, abdomen, and pelvis withcontrast HISTORY: Chest and abdominal pain TECHNIQUE: Computed tomography of the chest, abdomen, and pelvis wasperformed following the uneventful administration of 100 mL Omnipaque 350intravenous contrast according to standard protocol. FINDINGS: Comparison is made with CT chest, abdomen and pelvis on02/04/2013 Chest: The lungs are free of focal consolidations. A 3 mm right lower lobepulmonary nodule (image 61, series 6) is unchanged. There is no pleuraleffusion or pneumothorax. There is no supraclavicular, axillary, mediastinal or hilarlymphadenopathy. The left-sided aortic arch is normal in course and caliber. There is aresidual right lower lobe segmental and subsegmental artery pulmonaryembolus which is decreased since 02/04/2013. The remaining enhancedvascular structures are normal. The heart size is normal. There is no pericardial effusion. Abdomen and Pelvis: There has been interval development of 2 loculated fluid collections inthe gastrohepatic ligamentous region measuring approximately 4.2 x 6.4 cmand 4.3 x 2.2 cm and may be subcapsular. The gallbladder is surgicallyabsent. There is no intrahepatic or extrahepatic biliary ductal dilatation. Little residual pancreatic tissue is demonstrated which demonstratesdecreased enhancement and increased heterogeneity since the priorexamination. This is concerning for ongoing acute pancreatitis. Apancreatic duct stent is unchanged in position. The large fluid collection along the anterior pancreas now measuresapproximately 5.6 x 3.8 cm (previously measuring 5.0 x 3.0 cm). A fluidcollection involving the head of the pancreas is new and measuresapproximately 2.4 x 2.7 cm (image 115, series 5). A large fluid collection along the inferior border of the spleen is new,demonstrates mixed attenuation, representing layering hematocrit, andmeasures approximately 12.4 x 8.8 cm (image 158, series 5), narrowing thesplenic flexure of the colon. A small blush of enhancement at the pancreatic tail in this region may representactive hemorrhage. A loculated fluid collection in the anterior abdomenhas slightly decreased and measures approximately 7.3 x 3.8 cm (previouslymeasuring 7.6 x 4.4 cm). There is heterogeneous enhancement of the spleen. The splenic vein ismarkedly diminutive, previously normal in size. The adrenal glands arenormal. Multiple bilateral renal cysts appear grossly unchanged. Thekidneys otherwise enhance symmetrically bilaterally. There is no hydronephrosis or hydroureter. There is a rim-enhancing fluid collection along the superior aspect of thegreater curvature of the stomach measuring fluid attenuation which isdecreased in size since the prior examination and now measuresapproximately 2.4 x 4.4 cm (previously measuring 2.8 x 5.4 cm). Along the inferior aspect of the greatercurvature, there are increased complex fluid collections resulting in masseffect on the stomach, particularly the distal gastric body and antrum.There is mild thickening of the distal esophagus, likely secondary to reflux esophagitis. There is increasedenhancement of multiple small bowel loops suggesting shock bowel. Thesmall and large bowel are somewhat compressed by the large intra-abdominalfluid collections. A normal appendix is seen in the right lower quadrant. Multiple subcentimeter mesenteric andretroperitoneal lymph nodes are noted. There is a moderate volume ofintra-abdominal free fluid extending into the pelvis demonstratingslightly increased attenuation and may be hemorrhagic. There is stranding throughout the mesentery. The abdominal aorta is normal in course and caliber. The inferior venacava is flattened, suggesting hypovolemia. The remaining enhancedabdominal vascular structures are normal. A Gorman catheter terminates in the urinary bladder which is decompressed.The uterus is normal. Bone windows demonstrate no suspicious lytic or blastic lesions. IMPRESSION IMPRESSION: 1. A large left abdominal hemorrhagic fluid collection, new since priorexamination. A small blush of enhancement at the pancreatic tail mayrepresent an area of active hemorrhage. 2. Hyperenhancing small bowel loops in the setting of a collapsed IVC andintra-abdominal hemorrhagic fluid collection is concerning for shockbowel. 3. Increased intraparenchymal and peripancreatic fluid collections withlittle residual enhancing pancreatic tissue, compatible with necrotizingpancreatitis. 4. Increased moderate volume intra-abdominal and pelvic free fluiddemonstrating increased attenuation which may represent hemorrhagicascites. 5. Residual right lower lobe segmental and subsegmental artery pulmonaryembolus, decreased since 02/04/2013. The preliminary findings were discussed with Dr. Ambrocio by Dr. Ramirez 02/12/2013 at 6:05 PM This report was approved by Alex Bowles D.O. on 02/13/2013 9:58 AM. I, Dr. REYMUNDO BRAVO M.D. have personally reviewed and interpreted thisexamination/study. This report was electronically signed by REYMUNDO BRAVO M.D. on02/13/2013 5:36 PM . Sesar Akua Perlita DO CT ORDERABLES * B-TYPE NATRIURETIC PEPTIDE (02/12/2013 3:15 PM ACTING INSTRUCTOR) BNP 14 SEE COMMENT pg/mL [facility] Comment: A decision threshold of 100 pg/mL has been demonstrated to provide the maximal combination of sensitivity, specificity and predictive value for the diagnosis of congestive heart failure (CHF). Virtually all patients with no evidence of CHF have BNP values less than 100 pg/mL. A BNP value greater than 100 pg/mL is consistent with the diagnosis of CHF in the appropriate clinical setting. In a study of 693 patients (male and female) with diagnosed CHF, the following values were determined based on the NYHA functional classification system. NYHA Mean Value % >100pg/mL Functional Class (pg/mL) I 320 58.1 II 432 73.0 III 656 79.0 IV 1635 98.3 02/12/2013 3:15 PM ACTING INSTRUCTOR 02/12/2013 3:17 PM ACTING INSTRUCTOR Historical Provider LAB - CHEMISTRY O RDNAVA Performing Organization Address [facility] Co de Phone Number [address] [phone] * (ABNORMAL) HEMATOCRIT (02/06/2013 10:35 PM CDT) Only the most recent of7 resultswithin the time period is included. Hematocrit 28.6(L) 35.0 - 45.0 % [facility] Venous blood specimen (specimen) 02/06/2013 10:35 PM CDT 02/06/2013 11:00 PM CDT Narrative [facility] - 02/06/2013 11:10 PM CDT UTO X 3 DANILO KUMAR IS AWARE..[id number] Weston Espinosa MD LAB - HEMATOLOGY ORD NAVA Performing Organization Address [facility] Co de Phone Number [address] [phone] * (ABNORMAL) HEMOGLOBIN (02/06/2013 10:35 PM CDT) Only the most recent of7 resultswithin the time period is included. Hemoglobin 9.3(L) 12.0 - 15.5 g/dL [facility] Venous blood specimen (specimen) 02/06/2013 10:35 PM CDT 02/06/2013 11:00 PM CDT Narrative [facility] - 02/06/2013 11:10 PM CDT UTO X 3 RN JOSÉ IS AWARE..[id number] Weston Espinosa MD LAB - HEMATOLOGY ORD ERABENITA Performing Organization Address [facility] Co de Phone Number [address] [phone] * XR ABDOMEN 2VW (01/30/2013 9:21 AM CDT) Anatomical Region Laterality Modality Other Impressions 01/30/2013 4:12 PM CDT IMPRESSION: Dilated proximal large bowel loops, likely localized ileus or partial obstruction, in the splenic flexure region, secondary to known diagnosis of pancreatitis. Report dictated by Paula Lin M.D. (resident) This report was approved by Paula Lin M.D. on 01/30/2013 4:[address] TIERA Gregg M.D. have personally reviewed and interpreted this examination/study. This report was electronically signed by TIERA BENITEZ M.D. on 01/30/2013 4:12 PM . Narrative 01/30/2013 4:12 PM CDT EXAM: Portable abdomen, AP supine view DATE: 01/30/2013 9:22 AM HISTORY: Abdominal pain COMPARISON: Portable abdomen on 12/15/2012; CT abdomen dated 01/19/2013 FINDINGS: An enteric tube is no longer present. No dilated small bowel loops are seen. The ascending and transverse colon are dilated. Gas is seen within more distal large bowel loops. No pathological calcifications are seen. Surgical clips are noted within the right upper quadrant. A short catheter in the right upper quadrant may represent a stent. The visible osseous structures are intact. Procedure Note Tiera Benitez MD - 07/09/2017 EXAM: Portable abdomen, AP supine view DATE: 01/30/2013 9:22 AM HISTORY: Abdominal pain COMPARISON: Portable abdomen on 12/15/2012; CT abdomen dated 01/19/2013 FINDINGS: An enteric tube is no longer present. No dilated small bowel loops areseen. The ascending and transverse colon are dilated. Gas is seen withinmore distal large bowel loops. No pathological calcifications are seen.Surgical clips are noted within the right upper quadrant. A short catheter in the right upper quadrant mayrepresent a stent. The visible osseous structures are intact. IMPRESSION IMPRESSION: Dilated proximal large bowel loops, likely localized ileus or partialobstruction, in the splenic flexure region, secondary to known diagnosisof pancreatitis. Report dictated by Paula Lin M.D. (resident) This report was approved by Paula Lin M.D. on 01/30/2013 4:01PM . Dr. TIERA Gregg M.D. have personally reviewed and interpretedthis examination/study. This report was electronically signed by TIERA BENITEZ M.D. on01/30/2013 4:12 PM . Loni Silva MD DIAGNOSTIC IMAGING O RDERABLES * SODIUM URINE RANDOM (01/29/2013 5:20 PM CDT) Only the most recent of3 resultswithin the time period is included. Sodium Urine 140 mmol/L [facility] Comment: REFERENCE RANGE: NONE ESTABLISHED FOR RANDOM URINE SPECIMENS. Urine specimen (specimen) URINE SPECIMEN OBTAINED BY CLEAN CATCH PROCEDURE / Unknown 01/29/2013 5:20 PM CDT 01/29/2013 5:28 PM CDT Loni Silva MD LAB - URINE CHEMISTR Y ORDERABLES Performing Organization Address [facility] Co de Phone Number [address] [phone] * (ABNORMAL) OSMOLALITY URINE (01/29/2013 5:20 PM CDT) Only the most recent of2 resultswithin the time period is included. Osmolality Urine 355(L) 500 - 800 MOSM/KG [facility] Urine specimen (specimen) URINE SPECIMEN OBTAINED BY CLEAN CATCH PROCEDURE / Unknown 01/29/2013 5:20 PM CDT 01/29/2013 5:28 PM CDT Loni Silva MD LAB - URINE CHEMISTR Y ORDERABLES Performing Organization Address [facility] Co de Phone Number [address] [phone] * (ABNORMAL) JEAN-PAUL TITER AND PATTERN RFLXD (01/25/2013 7:00 AM CDT) Only the most recent of2 resultswithin the time period is included. JEAN-PAUL IFA See patterns . [facility] Comment: Negative <1:80 Borderline 1:80 Positive >1:80 Speckled Pattern >1:1280(A) . [facility] JEAN-PAUL Note . [facility] Comment: A positive JEAN-PAUL result may occur in healthy individuals or be associated with a variety of diseases. See interpre- tation below: Pattern Antigen Detected Suggested Disease Association Homogeneous DNA(ds,ss,), High titers - SLE (Smooth) Histone Speckled Sm, [employer], SCL-70, SLE,MCTD,Scleroderma,Sjogrens SS-A/SS-B Nucleolar SCL-70, PM-1/SCL High titers Scleroderma Poly- myositis/Scleroderma Overlap Centromere Centromere PSS w/Crest syndrome variable Performed at: - [facility] [id number] Skilled Nursing Case Manager: Jean-Paul Johnson PhD, Phone: [phone] 01/25/2013 7:00 AM CDT 01/25/2013 7:16 AM CDT Loni Silva MD LAB - SEROLOGY ORDER HEATHER [place] [phone] * (ABNORMAL) JEAN-PAUL BLOOD SCREEN (01/25/2013 7:00 AM CDT) Only the most recent of2 resultswithin the time period is included. JEAN-PAUL POSITIVE( A) NONE DETECT [facility] Comment:SCREENING RESULT POS ITIVE, CONFIRMATION RESULT TO FOLLOW. Venous blood specimen (specimen) 01/25/2013 7:00 AM CDT 01/25/2013 7:16 AM CDT Narrative [facility] - 01/25/2013 3:20 PM CDT Draw from PICC Loni Silva MD LAB - CHEMISTRY TOSHIA POPE [facility] [address] [phone] * CT PARACENTESIS (01/23/2013 9:27 AM CDT) Only the most recent of2 resultswithin the time period is included. Anatomical Region Laterality Modality Other Impressions 01/23/2013 9:40 AM CDT Impression: Ultrasound-guided paracentesis of appx 900 ml of turbid straw- colored fluid, as described above. Dr. Kaye was present and performed/supervised the entire procedure. This report was electronically signed by HAIR KAYE M.D. on 01/23/2013 9:40 AM . Narrative 01/23/2013 9:40 AM CDT History: 22-year-old female with pancreatitis and ascites. Diagnostic and therapeutic paracentesis is requested. Operators: 1. Dr. Kaye, Attending Physician 2. Dr. Morgan, Resident Physician Anesthesia: Local anesthesia - 10 ml of 1 % lidocaine. Procedure: Ultrasound guided paracentesis. Procedure in Detail: The procedure and possible complications were explained to the patient in detail, and informed consent was obtained. The patient was placed in a supine on the ultrasound table. Limited ultrasound examination of the abdomen demonstrated presence of free fluid in the peritoneum (ascites). An image was recorded and a percutaneous entry point was marked in the right paraumbilical quadrant of abdomen. The marked site and skin around the region was prepped and draped in a sterile fashion. Local anesthesia was provided by the injection with 1% Lidocaine. Using ultrasound guidance, a 19-gauge coaxial needle was advanced into the peritoneal cavity. The needle entry was documented. Upon fluid return, the outer sheath was advanced over the needle in to the peritoneal cavity. The needle was removed and the sheath was then connected to a vacuuntainer bottle and?approximately 900 ml of turbid straw-colored fluid was drained. Appropriate amount of fluid was given for necessary laboratory evaluation.. Patient received appropriate amount of intravenous albumin replacement. The sheath was removed and sterile dressing was applied. The patient was transferred to the holding area in stable condition. There were no complications and the patient tolerated the procedure well.? Procedure Note Hair Kaye MD - 07/09/2017 History: 22-year-old female with pancreatitis and ascites. Diagnostic andtherapeutic paracentesis is requested. Operators: 1. Dr. Kaye, Attending Physician 2. Dr. Morgan, Resident Physician Anesthesia: Local anesthesia - 10 ml of 1 % lidocaine. Procedure: Ultrasound guided paracentesis. Procedure in Detail: The procedure and possible complications wereexplained to the patient in detail, and informed consent was obtained. Thepatient was placed in a supine on the ultrasound table. Limitedultrasound examination of the abdomen demonstrated presence of free fluid in the peritoneum (ascites). An imagewas recorded and a percutaneous entry point was marked in the rightparaumbilical quadrant of abdomen. The marked site and skin around the region was prepped and draped in asterile fashion. Local anesthesia was provided by the injection with 1%Lidocaine. Using ultrasound guidance, a 19-gauge coaxial needle wasadvanced into the peritoneal cavity. The needle entry was documented. Upon fluid return, the outer sheath wasadvanced over the needle in to the peritoneal cavity. The needle wasremoved and the sheath was then connected to a vacuuntainer bottleand?approximately 900 ml of turbid straw- colored fluid was drained. Appropriate amount of fluid was given for necessarylaboratory evaluation.. Patient received appropriate amount of intravenousalbumin replacement. The sheath was removed and sterile dressing was applied. The patient wastransferred to the holding area in stable condition. There were nocomplications and the patient tolerated the procedure well.? IMPRESSION Impression: Ultrasound-guided paracentesis of appx 900 ml of turbidstraw-colored fluid, as described above. Dr. Kaye was present and performed/supervised the entire procedure. This report was electronically signed by HAIR KAYE M.D. on01/23/2013 9:40 AM . Loni Silva MD CT ORDERABLES * AMYLASE BODY FLUID ([facility] ONLY) (01/23/2013 8:45 AM CDT) Only the most recent of3 resultswithin the time period is included. Amylase Fluid 02181 Units/L [facility] Comment: RESULT CONFIRMED BY DILUTION REFERENCE RANGE: NONE ESTABLISHED FOR FLUIDS Peritoneal dialysis fluid specimen (specimen) 01/23/2013 8:45 AM CDT 01/23/2013 10:41 AM CDT Loni Silva MD LAB - BODY FLUID ORD ERABLES Performing Organization Address [facility]/[place] Co de Phone Number [address] [phone] * TRIGLYCERIDES FLUID (01/23/2013 8:45 AM CDT) Triglycerides Fluid < 7 mg/dL [facility] Comment:REFERENCE RANGE: NON E ESTABLISHED FOR FLUIDS Fluid specimen (specimen) 01/23/2013 8:45 AM CDT 01/23/2013 10:41 AM CDT Loni Silva MD LAB - BODY FLUID ORD ERABLES Performing Organization Address City/[facility]/ZIP Co de Phone Number [address] [phone] * CELL COUNT CSF (01/23/2013 8:30 AM CDT) Only the most recent of2 resultswithin the time period is included. Fluid Type PERIT [facility] Color Fluid [facility] Clarity Fluid CLOUDY [facility] Volume Fluid 5 ML [facility] WBC, Fluid 12 MM3 [facility] RBC Fluid 24 /MM3 [facility] 01/23/2013 8:30 AM CDT 01/23/2013 10:42 AM CDT Narrative [facility] - 01/23/2013 11:37 AM CDT FLUID TYPE? OTHER FLUID Loni Silva MD LAB - BODY FLUID ORD ERABLES Performing Organization Address [facility]/[place] [address], [facility] [phone] * BILIRUBIN TOTAL FLUID (01/15/2013 2:45 PM CDT) Bilirubin Fluid 0.4 mg/dL [facility] Comment:REFERENCE RANGE: NON E ESTABLISHED FOR FLUIDS Fluid specimen (specimen) 01/15/2013 2:45 PM CDT 01/15/2013 3:25 PM CDT Loni Silva MD LAB - BODY FLUID ORD ERABLES Performing Organization Address [facility] [place] [address], [facility] [phone] * CULTURE TISSUE+GRAM STAIN (01/14/2013 3:15 PM CDT) Gram Stain MANY POLYMORPHONUCLEAR CELLS, NO ORGANISMS SEEN. GRAM STAINS ARE ROUTINELY SCREENED FOR THE PRESENCE OF POLYMORPHONUCLEAR CELLS. [facility] Culture Results [facility] Culture Tissue NO GROWTH AFTER ONE WEEK. [facility] Tissue (Unspecified) 01/14/2013 3:15 PM CDT 01/14/2013 3:30 PM CDT Narrative [facility] - 01/21/2013 11:38 AM CDT Specimen Type->Tissue unspecified abdominal fluid ABDOMINAL FLUID ONLY, NO TISSUE RECEIVED PLATES ONLY Lex Devine MD LAB - MICROBIOLOGY O RDERABENITA Performing Organization Address [facility]/[place] [address], [facility] [phone] * US PARACENTESIS (01/14/2013 2:55 PM CDT) Anatomical Region Laterality Modality Other Impressions 01/14/2013 4:26 PM CDT Impression: Ultrasound guided placement of an 12 [place] APDL (pigtail) catheter in the right lower quadrant, as described above. Follow up: The catheter is open for external drainage and record the output. Flush the catheters with 10 cc of saline once a day. If the output falls below 20 cc/day please schedule for a imaging guided tube-check follow up. Marysol Devine M.D., was present and performed/supervised the entire procedure. This report was electronically signed by LEX DEVINE M.D. on 01/14/2013 2:55 PM . Narrative 01/14/2013 4:26 PM CDT History: Lex Devine M.D. Operators: 1. Dr. Lex Devine M.D., Attending Physician 2. Dr. Alex Moreau M.D., Resident Physician Anesthesia: 1. Local anesthesia - 5 ml of 1 % lidocaine 2. Intravenous Conscious Sedation (Versed 2 mg and Fentanyl drip mcg). Procedure: 1. Limited sonographic examination of abdomen. 2. Ultrasound guided placement of 12 [place] APDL (pig tail) in the right lower quadrant. Duration of Procedure: Appx. 45 minutes. Procedure in Detail: The procedure and possible complications were explained to the patient in detail, and informed consent was obtained. The patient was placed in a supine position on the rwest point and a limited sonographic examination was performed to marybel over the region of interest. Sonographic exam demonstrated moderate volume peritoneal fluid. Patient received intravenous conscious sedation with Versed and Fentanyl. Patient?s vital signs were monitored by a qualified radiology nurse throughout the procedure. The marked site and skin around the region was prepped and draped in a sterile fashion. Local anesthesia was provided by the injection with 1% Lidocaine. A co-axial needle system was advanced in stages under ultrasound guidance. Upon aspiration, the out-sheath was advanced within the collection. A 0.035 wire was looped and following series of dilatation/exchanges a 12 [place] APDL (pigtail) catheter was advanced. The initial aspirate was yellowish and approximately 700 cc amount of fluid was drained. Appropriate amount of aspirate was sent for necessary laboratory work up. A final imaging showed the catheter in satisfactory position. There is no immediate complication like hemorrhage noted. The patient tolerated the procedure. The patient was transferred to the [facility] area in stable condition. Procedure Note Lex Devine MD - 07/09/2017 History: Lex Devine M.D. Operators: 1. Dr. Lex Devine M.D., Attending Physician 2. Dr. Alex Moreau M.D., Resident Physician Anesthesia: 1. Local anesthesia - 5 ml of 1 % lidocaine 2. Intravenous Conscious Sedation (Versed 2 mg and Fentanyl drip mcg). Procedure: 1. Limited sonographic examination of abdomen. 2. Ultrasound guided placement of 12 [place] APDL (pig tail) in the rightlower quadrant. Duration of Procedure: Appx. 45 minutes. Procedure in Detail: The procedure and possible complications wereexplained to the patient in detail, and informed consent was obtained. The patient was placed in a supine position on the rwest point and a limitedsonographic examination was performed to marybel over the region of interest.Sonographic exam demonstrated moderate volume peritoneal fluid. Patient received intravenous conscious sedation with Versed and Fentanyl.Patient?s vital signs were monitored by a qualified radiology nursethroughout the procedure. The marked site and skin around the region was prepped and draped in asterile fashion. Local anesthesia was provided by the injection with 1%Lidocaine. A co- axial needle system was advanced in stages underultrasound guidance. Upon aspiration, the out-sheath was advanced within the collection. A 0.035 wire was looped andfollowing series of dilatation/exchanges a 12 [place] APDL (pigtail)catheter was advanced. The initial aspirate was yellowish andapproximately 700 cc amount of fluid was drained. Appropriate amount of aspirate was sent for necessary laboratorywork up. A final imaging showed the catheter in satisfactory position.There is no immediate complication like hemorrhage noted. The patient tolerated the procedure. [facility]. IMPRESSION Impression: Ultrasound guided placement of an 12 [place] APDL (pigtail)catheter in the right lower quadrant, as described above. Follow up: The catheter is open for external drainage and record theoutput. Flush the catheters with 10 cc of saline once a day. If the outputfalls below 20 cc/day please schedule for a imaging guided tube-checkfollow up. Marysol Devine M.D., was present and performed/supervised the entireprocedure. This report was electronically signed by LEX DEVINE M.D. on01/14/2013 2:55 PM . Loni Silva MD US ORDERABLES * IR DRAIN W CATH PLACEMENT (01/14/2013 2:55 PM CDT) Anatomical Region Laterality Modality Abdomen Other Impressions 01/14/2013 4:26 PM CDT Impression: Ultrasound guided placement of an 12 [place] APDL (pigtail) catheter in the right lower quadrant, as described above. Follow up: The catheter is open for external drainage and record the output. Flush the catheters with 10 cc of saline once a day. If the output falls below 20 cc/day please schedule for a imaging guided tube-check follow up. Marysol Devine M.D., was present and performed/supervised the entire procedure. This report was electronically signed by LEX DEVINE M.D. on 01/14/2013 2:55 PM . Narrative 01/14/2013 4:26 PM CDT History: Lex Devine M.D. Operators: 1. Dr. Lex Devine M.D., Attending Physician 2. Dr. Alex Moreau M.D., Resident Physician Anesthesia: 1. Local anesthesia - 5 ml of 1 % lidocaine 2. Intravenous Conscious Sedation (Versed 2 mg and Fentanyl drip mcg). Procedure: 1. Limited sonographic examination of abdomen. 2. Ultrasound guided placement of 12 [place]ian APDL (pig tail) in the right lower quadrant. Duration of Procedure: Appx. 45 minutes. Procedure in Detail: The procedure and possible complications were explained to the patient in detail, and informed consent was obtained. The patient was placed in a supine position on the rney and a limited sonographic examination was performed to marybel over the region of interest. Sonographic exam demonstrated moderate volume peritoneal fluid. Patient received intravenous conscious sedation with Versed and Fentanyl. Patient?s vital signs were monitored by a qualified radiology nurse throughout the procedure. The marked site and skin around the region was prepped and draped in a sterile fashion. Local anesthesia was provided by the injection with 1% Lidocaine. A co-axial needle system was advanced in stages under ultrasound guidance. Upon aspiration, the out-sheath was advanced within the collection. A 0.035 wire was looped and following series of dilatation/exchanges a 12 [place] APDL (pigtail) catheter was advanced. The initial aspirate was yellowish and approximately 700 cc amount of fluid was drained. Appropriate amount of aspirate was sent for necessary laboratory work up. A final imaging showed the catheter in satisfactory position. There is no immediate complication like hemorrhage noted. The patient tolerated the procedure. The patient was transferred to the holding area in stable condition. Procedure Note Lex Devine MD - 07/09/2017 History: Lex Devine M.D. Operators: 1. Dr. Lex Devine M.D., Attending Physician 2. Dr. Alex Moreau M.D., Resident Physician Anesthesia: 1. Local anesthesia - 5 ml of 1 % lidocaine 2. Intravenous Conscious Sedation (Versed 2 mg and Fentanyl drip mcg). Procedure: 1. Limited sonographic examination of abdomen. 2. Ultrasound guided placement of 12 [place] APDL (pig tail) in the rightlower quadrant. Duration of Procedure: Appx. 45 minutes. Procedure in Detail: The procedure and possible complications wereexplained to the patient in detail, and informed consent was obtained. The patient was placed in a supine position on the rney and a limitedsonographic examination was performed to marybel over the region of interest.Sonographic exam demonstrated moderate volume peritoneal fluid. Patient received intravenous conscious sedation with Versed and Fentanyl.Patient?s vital signs were monitored by a qualified radiology nursethroughout the procedure. The marked site and skin around the region was prepped and draped in asterile fashion. Local anesthesia was provided by the injection with 1%Lidocaine. A co- axial needle system was advanced in stages underultrasound guidance. Upon aspiration, the out-sheath was advanced within the collection. A 0.035 wire was looped andfollowing series of dilatation/exchanges a 12 [place]ian APDL (pigtail)catheter was advanced. The initial aspirate was yellowish andapproximately 700 cc amount of fluid was drained. Appropriate amount of aspirate was sent for necessary laboratorywork up. A final imaging showed the catheter in satisfactory position.There is no immediate complication like hemorrhage noted. The patient tolerated the procedure. [facility]. IMPRESSION Impression: Ultrasound guided placement of an 12 [place] APDL (pigtail)catheter in the right lower quadrant, as described above. Follow up: The catheter is open for external drainage and record theoutput. Flush the catheters with 10 cc of saline once a day. If the outputfalls below 20 cc/day please schedule for a imaging guided tube-checkfollow up. I Lex Devine M.D., was present and performed/supervised the entireprocedure. This report was electronically signed by LEX DEVINE M.D. on01/14/2013 2:55 PM . Loni Silva MD IR ORDERABLES * OCCULT BLOOD FECES (01/08/2013 2:35 PM CDT) Pathologist [facility] Occult Blood 1 POSITIVE NEGATIVE [facility] 01/08/2013 2:35 PM CDT 01/08/2013 4:29 PM CDT Loni Silva MD LAB - BODY FLUID ORD ERABLES [address] [phone] * (ABNORMAL) LIPID PROFILE (01/08/2013 6:13 AM CDT) Only the most recent of2 resultswithin the time period is included. Cholesterol Total 102 <200 mg/dL [facility] HDL 18(L) > OR = 40 mg/dL [facility] Comment: ATP III classification of HDL cholesterol: <40 mg/dL Low; considered a major risk factor >60 mg/dL High; considered a negative risk factor Triglycerides 112 <150 mg/dL [facility] Comment: ATP III classification of Triglycerides: < 150 mg/dL Normal triglycerides 150-199 mg/dL Borderline-high triglycerides 200-400 mg/dL High triglycerides > 500 mg/dL Very high triglycerides LDL Calculated 62 0 - 100 mg/dL [facility] Comment: ATP III classification of LDL cholesterol: <100 mg/dL Optimal 100-129 Near optimal/above optimal 130-159 Borderline high 160-189 High >190 Very high 01/08/2013 6:13 AM CDT 01/08/2013 6:50 AM CDT Narrative [facility] - 01/08/2013 3:55 PM CDT Tests Added on:LIPID PANEL Add On per General Requisition to specimen #265 Tests Added on:HEPATIC FUNC Add On per General Requisition to specimen #265 IS PATIENT ON HEPARIN? (Y OR N) N Rohit Puentes MD LAB - CHEMISTRY TOSHIA POPE Performing Organization Address City/[facility]/[place] [address], [facility] [phone] * GGT (01/05/2013 10:15 PM CDT) Only the most recent of2 resultswithin the time period is included. GGT 48 9 - 64 Units/L [facility] Serum 01/05/2013 10:1 5 PM CDT 01/05/2013 11:09 PM CDT Rohit Puentes MD LAB - CHEMISTRY TOSHIA POPE Performing Organization Address [facility] [place] [address], [facility] [phone] * MRI ANGIO NECK W CONTRAST (12/21/2012 3:30 PM CDT) Anatomical Region Laterality Modality Head Other Impressions 12/21/2012 4:53 PM CDT IMPRESSION: 1. Punctate foci of T2/FLAIR hyperintensity in the subcortical white matter of the left frontal lobe and bilateral basal ganglia with diffuse periventricular T2/FLAIR hyperintensity without restricted diffusion or enhancement. Given the patient's history Lupus, this may represent the sequela of cerebral involvement of systemic lupus erythematosus. Other potential etiologies would include LEVEL VIAL MARKER vasculitis from other primary causes. 2. T2* hypointensities along the lateral aspect of the left lateral ventricle and along the medial right hippocampal surface are not well seen on other sequences and may represent foci of calcification or potentially old blood products. 3. Grossly normal MRA of the head and neck without aneurysm or significant vascular stenosis This report was approved by Ricardo Lilly M.D. on 12/21/2012 4:35 PM . I, Dr. HOWIE CRUZ M.D. have personally reviewed and interpreted this examination/study. This report was electronically signed by HOWIE CRUZ M.D. on 12/21/2012 4:53 PM . Narrative 12/21/2012 4:53 PM CDT EXAMINATION: 1. Magnetic resonance imaging (MRI) of the brain without and with contrast 2. Magnetic resonance angiography (MRA) of the head without contrast and neck with contrast HISTORY: Seizure. TECHNIQUE: MRI of the brain was performed prior to and following the uneventful administration of 6 mL Gadavist intravenous gadolinium contrast according to a seizure protocol. MRA of the hgyfiy-ig-Qrauoo was performed using a ylsf-lj-nctrst technique without contrast. Finally, contrast-enhanced MRA of the neck was performed. FINDINGS: Comparison is made to CT head dated 12/19/2012 Brain: No evidence of acute cerebral infarction is identified. T2* hypointensity along the lateral aspect of the left lateral ventricle and along the medial aspect of the right hippocampal surface may represent calcification or potentially old blood products. The ventricles are of normal size, shape, and morphology. No mass effect or midline shift is seen. Punctate foci of T2/FLAIR hyperintensity are present in the subcortical white matter of the left frontal lobe and bilateral basal ganglia and diffuse periventricular T2/FLAIR hyperintensity is also present. No enhancing lesions are identified. No heterotopia or malformations of cortical development are identified. The hippocampi are symmetric in size and signal. The corpus callosum and sella appear normal. The posterior fossa, brainstem, and craniocervical junction appear normal. The visualized portions of the orbits, paranasal sinuses, and mastoids appear normal. Normal flow voids are demonstrated in the carotid arteries and basilar artery. The calvarium and visualized cervical spine appear normal. Angiographic findings: The visualized aortic arch appears normal. The configuration of the brachiocephalic vessels is typical. The innominate artery and both subclavian arteries appear normal. The common carotid arteries and carotid bifurcations appear normal. The cervical internal carotid and vertebral arteries appear normal. The distal internal carotid arteries appear normal. Other than a hypoplastic left A1 segment, the anterior and middle cerebral arteries appear normal. The distal vertebral arteries appear normal. The basilar artery and posterior cerebral arteries appear normal. No aneurysms or intracranial stenoses are identified. Procedure Note Howie Cruz MD - 07/09/2017 EXAMINATION: 1. Magnetic resonance imaging (MRI) of the brain without and withcontrast 2. Magnetic resonance angiography (MRA) of the head without contrast andneck with contrast HISTORY: Seizure. TECHNIQUE: MRI of the brain was performed prior to and following theuneventful administration of 6 mL Gadavist intravenous gadolinium contrastaccording to a seizure protocol. MRA of the vfrrcp-oh-Xkatls was performedusing a [id number]-hb-gijfnp technique without contrast. Finally, contrast-enhanced MRA of the neck wasperformed. FINDINGS: Comparison is made to CT head dated 12/19/2012 Brain: No evidence of acute cerebral infarction is identified. T2* hypointensityalong the lateral aspect of the left lateral ventricle and along themedial aspect of the right hippocampal surface may represent calcificationor potentially old blood products. The ventricles are of normal size, shape, and morphology. No mass effector midline shift is seen. Punctate foci of T2/FLAIR hyperintensity arepresent in the subcortical white matter of the left frontal lobe andbilateral basal ganglia and diffuse periventricular T2/FLAIR hyperintensity is also present. No enhancinglesions are identified. No heterotopia or malformations of corticaldevelopment are identified. The hippocampi are symmetric in size andsignal. The corpus callosum and sella appear normal. The posterior fossa, brainstem, and craniocervical junction appearnormal. The visualized portions of the orbits, paranasal sinuses, and mastoidsappear normal. Normal flow voids are demonstrated in the carotid arteriesand basilar artery. The calvarium and visualized cervical spine appearnormal. Angiographic findings: The visualized aortic arch appears normal. The configuration of thebrachiocephalic vessels is typical. The innominate artery and bothsubclavian arteries appear normal. The common carotid arteries and carotidbifurcations appear normal. The cervical internal carotid and vertebral arteries appear normal. The distal internal carotid arteries appear normal. Other than ahypoplastic left A1 segment, the anterior and middle cerebral arteriesappear normal. The distal vertebral arteries appear normal. The basilarartery and posterior cerebral arteries appear normal. No aneurysms or intracranial stenoses are identified. IMPRESSION IMPRESSION: 1. Punctate foci of T2/FLAIR hyperintensity in the subcortical whitematter of the left frontal lobe and bilateral basal ganglia with diffuseperiventricular T2/FLAIR hyperintensity without restricted diffusion orenhancement. Given the patient's history Lupus, this may represent the sequela of cerebral involvement of systemiclupus erythematosus. Other potential etiologies would include CNSvasculitis from other primary causes. 2. T2* hypointensities along the lateral aspect of the left lateralventricle and along the medial right hippocampal surface are not well seenon other sequences and may represent foci of calcification or potentiallyold blood products. 3. Grossly normal MRA of the head and neck without aneurysm or significantvascular stenosis This report was approved by Ricardo Lilly M.D. on 12/21/2012 4:35PM . I, Dr. HOWIE CRUZ M.D. have personally reviewed and interpreted thisexamination/study. This report was electronically signed by HOWIE CRUZ M.D. on 12/21/20124:53 PM . Tone Dillon MD MR ORDERABLES * MRI BRAIN WWO CONTRAST (12/21/2012 3:28 PM CDT) Only the most recent of2 resultswithin the time period is included. Anatomical Region Laterality Modality Head Other Impressions 12/21/2012 4:53 PM CDT IMPRESSION: 1. Punctate foci of T2/FLAIR hyperintensity in the subcortical white matter of the left frontal lobe and bilateral basal ganglia with diffuse periventricular T2/FLAIR hyperintensity without restricted diffusion or enhancement. Given the patient's history Lupus, this may represent the sequela of cerebral involvement of systemic lupus erythematosus. Other potential etiologies would include LEVEL VIAL MARKER vasculitis from other primary causes. 2. T2* hypointensities along the lateral aspect of the left lateral ventricle and along the medial right hippocampal surface are not well seen on other sequences and may represent foci of calcification or potentially old blood products. 3. Grossly normal MRA of the head and neck without aneurysm or significant vascular stenosis This report was approved by Ricardo Lilly M.D. on 12/21/2012 4:[address] HOWIE Gregg M.D. have personally reviewed and interpreted this examination/study. This report was electronically signed by HOWIE CRUZ M.D. on 12/21/2012 4:53 PM . Narrative 12/21/2012 4:53 PM CDT EXAMINATION: 1. Magnetic resonance imaging (MRI) of the brain without and with contrast 2. Magnetic resonance angiography (MRA) of the head without contrast and neck with contrast HISTORY: Seizure. TECHNIQUE: MRI of the brain was performed prior to and following the uneventful administration of 6 mL Gadavist intravenous gadolinium contrast according to a seizure protocol. MRA of the iycqie-sp-Eknkgw was performed using a nkce-dr-ponfse technique without contrast. Finally, contrast-enhanced MRA of the neck was performed. FINDINGS: Comparison is made to CT head dated 12/19/2012 Brain: No evidence of acute cerebral infarction is identified. T2* hypointensity along the lateral aspect of the left lateral ventricle and along the medial aspect of the right hippocampal surface may represent calcification or potentially old blood products. The ventricles are of normal size, shape, and morphology. No mass effect or midline shift is seen. Punctate foci of T2/FLAIR hyperintensity are present in the subcortical white matter of the left frontal lobe and bilateral basal ganglia and diffuse periventricular T2/FLAIR hyperintensity is also present. No enhancing lesions are identified. No heterotopia or malformations of cortical development are identified. The hippocampi are symmetric in size and signal. The corpus callosum and sella appear normal. The posterior fossa, brainstem, and craniocervical junction appear normal. The visualized portions of the orbits, paranasal sinuses, and mastoids appear normal. Normal flow voids are demonstrated in the carotid arteries and basilar artery. The calvarium and visualized cervical spine appear normal. Angiographic findings: The visualized aortic arch appears normal. The configuration of the brachiocephalic vessels is typical. The innominate artery and both subclavian arteries appear normal. The common carotid arteries and carotid bifurcations appear normal. The cervical internal carotid and vertebral arteries appear normal. The distal internal carotid arteries appear normal. Other than a hypoplastic left A1 segment, the anterior and middle cerebral arteries appear normal. The distal vertebral arteries appear normal. The basilar artery and posterior cerebral arteries appear normal. No aneurysms or intracranial stenoses are identified. Procedure Note Howie Cruz MD - 07/09/2017 EXAMINATION: 1. Magnetic resonance imaging (MRI) of the brain without and withcontrast 2. Magnetic resonance angiography (MRA) of the head without contrast andneck with contrast HISTORY: Seizure. TECHNIQUE: MRI of the brain was performed prior to and following theuneventful administration of 6 mL Gadavist intravenous gadolinium contrastaccording to a seizure protocol. MRA of the stvtum-jp-Cjsuiq was performedusing a tdcd-qx-lkvoif technique without contrast. Finally, contrast-enhanced MRA of the neck wasperformed. FINDINGS: Comparison is made to CT head dated 12/19/2012 Brain: No evidence of acute cerebral infarction is identified. T2* hypointensityalong the lateral aspect of the left lateral ventricle and along themedial aspect of the right hippocampal surface may represent calcificationor potentially old blood products. The ventricles are of normal size, shape, and morphology. No mass effector midline shift is seen. Punctate foci of T2/FLAIR hyperintensity arepresent in the subcortical white matter of the left frontal lobe andbilateral basal ganglia and diffuse periventricular T2/FLAIR hyperintensity is also present. No enhancinglesions are identified. No heterotopia or malformations of corticaldevelopment are identified. The hippocampi are symmetric in size andsignal. The corpus callosum and sella appear normal. The posterior fossa, brainstem, and craniocervical junction appearnormal. The visualized portions of the orbits, paranasal sinuses, and mastoidsappear normal. Normal flow voids are demonstrated in the carotid arteriesand basilar artery. The calvarium and visualized cervical spine appearnormal. Angiographic findings: The visualized aortic arch appears normal. The configuration of thebrachiocephalic vessels is typical. The innominate artery and bothsubclavian arteries appear normal. The common carotid arteries and carotidbifurcations appear normal. The cervical internal carotid and vertebral arteries appear normal. The distal internal carotid arteries appear normal. Other than ahypoplastic left A1 segment, the anterior and middle cerebral arteriesappear normal. The distal vertebral arteries appear normal. The basilarartery and posterior cerebral arteries appear normal. No aneurysms or intracranial stenoses are identified. IMPRESSION IMPRESSION: 1. Punctate foci of T2/FLAIR hyperintensity in the subcortical whitematter of the left frontal lobe and bilateral basal ganglia with diffuseperiventricular T2/FLAIR hyperintensity without restricted diffusion orenhancement. Given the patient's history Lupus, this may represent the sequela of cerebral involvement of systemiclupus erythematosus. Other potential etiologies would include CNSvasculitis from other primary causes. 2. T2* hypointensities along the lateral aspect of the left lateralventricle and along the medial right hippocampal surface are not well seenon other sequences and may represent foci of calcification or potentiallyold blood products. 3. Grossly normal MRA of the head and neck without aneurysm or significantvascular stenosis This report was approved by Ricardo Lilly M.D. on 12/21/2012 4:35PM . I, Dr. HOWIE CRUZ M.D. have personally reviewed and interpreted thisexamination/study. This report was electronically signed by HOWIE CRUZ M.D. on 12/21/20124:53 PM . Tone Dillon MD MR ORDERABLES * (ABNORMAL) PROTEIN ELECTROPHORESIS WO INTERP BLOOD (12/21/2012 12:42 PM CDT) Only the most recent of2 resultswithin the time period is included. Interpretation Serum Protein SEE NOTE [facility] Comment: Serum protein electrophoresis shows mild hypoalbuminemia with a relative increase in alpha-2 macroglobulin. This pattern of alteration in serum protein concentrations is seen in patients with acute renal failure or chronic renal disease (e.g. nephrotic syndrome). No monoclonal immunoglobulins detected. Non-secretory myeloma (NSM) and light chain only myeloma cannot be excluded on the basis of this result. Recommend serum free light chain measurements for complete evaluation of multiple myeloma. Measurement of serum free kappa and lambda immunoglobulin light chains can identify all patients with light chain only myeloma and up to 70% of patients with NSM. The serum free light chain measurement can be performed using this specimen by calling the [facility] at [phone]. Kimberly Fernando, Ph.D. Total Protein 6.0 6.0 - 8.3 g/dL [facility] Albumin 3.1(L) 3.3 - 5.6 G/DL [facility] Alpha-1 Globulins 0.3 0.1 - 0.3 G/DL [facility] Alpha-2 Globulins 1.0 0.5 - 1.0 G/DL [facility] Beta Globulins 0.9 0.6 - 1.1 G/DL [facility] Gamma Globulins 0.8 0.6 - 1.6 G/DL [facility] Venous blood specimen (specimen) 12/21/2012 12:42 PM CDT 12/21/2012 1:17 PM CDT Weston Espinosa MD LAB - CHEMISTRY ULYSSESJose G DE OLIVEIRAYVONNE [facility] Organization Address City/State/ZIP Co de Phone Number [address] [phone] * [place] LUMBAR PUNCTURE (12/21/2012 9:11 AM CDT) Anatomical Region Laterality Modality Spine Other Impressions 12/21/2012 11:12 AM CDT IMPRESSION: 1. Successful lumbar puncture under fluoroscopic guidance at L3-4. This report was approved by Ricardo Lilly M.D. on 12/21/2012 10:25 AM . I, Dr. PRERNA WOODS M.D. have personally reviewed and interpreted this examination/study. This report was electronically signed by PRERNA WOODS M.D. on 12/21/2012 11:12 AM . Narrative 12/21/2012 11:12 AM CDT EXAMINATION: Diagnostic lumbar puncture (LP) under fluoroscopic guidance HISTORY: Lupus cerebritis, unsuccessful bedside lumbar puncture. TECHNIQUE: The risks and benefits of the lumbar puncture including, but not limited to, infection, bleeding, seizure, epidural hematoma, post spinal headache, cerebrospinal fluid (CSF) leak requiring blood patch procedure, nausea, vomiting, irritation or damage to nerves causing pain or permanent injury were discussed with the patient. After alternatives were discussed and the opportunity to ask questions was provided, the patient acknowledged understanding, gave verbal and written consent, and wished to proceed. Attending physician: Dr. Woods was present for the martinez portions of this procedure. The L4-5 level was localized with fluoroscopy. The skin overlying this level was then sterilely prepped, draped, and infiltrated with 1% lidocaine for local anesthesia. Under intermittent fluoroscopic guidance, a 20 gauge 3.5 inch spinal needle was inserted into the thecal sac at this level. Clear CSF was identified. A total of 14 ml of CSF was removed and placed into 4 specimen tubes. The patient tolerated the procedure well. The patient was then transferred to the hospital floor for further observation and at least 3 hours of bedrest. OPENING PRESSURE: Not performed. FLUOROSCOPY TIME: 38 seconds Procedure Note Prerna Woods MD - 07/09/2017 EXAMINATION: Diagnostic lumbar puncture (LP) under fluoroscopic guidance HISTORY: Lupus cerebritis, unsuccessful bedside lumbar puncture. TECHNIQUE: The risks and benefits of the lumbar puncture including, butnot limited to, infection, bleeding, seizure, epidural hematoma, postspinal headache, cerebrospinal fluid (CSF) leak requiring blood patchprocedure, nausea, vomiting, irritation or damage to nerves causing pain or permanent injury were discussed withthe patient. After alternatives were discussed and the opportunity to askquestions was provided, the patient acknowledged understanding, gaveverbal and written consent, and wished to proceed. Attending physician: Dr. Wodos was present for the martinez portions of thisprocedure. The L4-5 level was localized with fluoroscopy. The skin overlying thislevel was then sterilely prepped, draped, and infiltrated with 1%lidocaine for local anesthesia. Under intermittent fluoroscopic guidance,a 20 gauge 3.5 inch spinal needle was inserted into the thecal sac at this level. Clear CSF was identified. A total of 14 ml of CSF was removed and placedinto 4 specimen tubes. The patient tolerated the procedure well. Thepatient was then transferred to the hospital floor for further observationand at least 3 hours of bedrest. OPENING PRESSURE: Not performed. FLUOROSCOPY TIME: 38 seconds IMPRESSION IMPRESSION: 1. Successful lumbar puncture under fluoroscopic guidance at L3-4. This report was approved by Ricardo Lilly M.D. on 12/21/2012 10:25AM . I, Dr. PRERNA WOODS M.D. have personally reviewed and interpreted thisexamination/study. This report was electronically signed by PRERNA WOODS M.D. on 12/21/201211:12 AM . Weston Espinosa MD FLUOROSCOPY ORDERABL ES * VIRAL CULTURE NON-RESPIRATORY (12/21/2012 8:55 AM CDT) Viral Culture No virus isolated. . [facility] Comment: Performed at: [facility] [id number] Skilled Nursing Case Manager: Wesley Mercer MD, Phone: [phone] Preliminary Report: No virus isolated at 4 days. Next report to follow after 7 days. Performed at: [address] [id number] Skilled Nursing Case Manager: Wesley Mercer MD, Phone: [phone] Preliminary Report: No virus isolated at 24 hours. Next report to follow after 4 days. Performed at: [address] [id number] Skilled Nursing Case Manager: Wesley Mercer MD, Phone: [phone] !! EDITED OR CORRECTED RESULTS !! RESULT PREVIOUSLY REPORTED : Preliminary Report: No virus isolated at 24 hours. Next report to follow after 4 days. Performed at: [address] [id number] Skilled Nursing Case Manager: Wesley Mercer MD, Phone: [phone] NOTIFIED [] AT 1344 ON 12/27/12 !! EDITED OR CORRECTED RESULTS !! RESULT PREVIOUSLY REPORTED : Preliminary Report: No virus isolated at 4 days. Next report to follow after 7 days. Performed at: [address] [id number] Skilled Nursing Case Manager: Wesley Mercer MD, Phone: [phone] Preliminary Report: No virus isolated at 24 hours. Next report to follow after 4 days. Performed at: [address] [id number] Skilled Nursing Case Manager: Wesley Mercer MD, Phone: [phone] !! EDITED OR CORRECTED RESULTS !! RESULT PREVIOUSLY REPORTED : Preliminary Report: No virus isolated at 24 hours. Next report to follow after 4 days. Performed at: [address] [id number] Skilled Nursing Case Manager: Wesley Mercer MD, Phone: [phone] NOTIFIED [] AT 1344 ON 12/27/12 NOTIFIED [] AT 0916 ON 12/31/12 Spinal fluid (substance) 12/21/2012 8:55 AM CDT 12/21/2012 9:44 AM CDT Historical Provider LAB - MICROBIOLOG Y ORDERABLES [address] [phone] * (ABNORMAL) HERPES SIMPLEX 1+2 ANTIBODY IGG CSF (12/21/2012 8:55 AM CDT) Herpes Simplex Virus 1/2 Antibody IgG Screen CSF 2.67(A) <=0.89 IV [facility] Comment: INTERPRETIVE INFORMATION: Herpes Simplex Virus Type 1 and/or 2 Antibodies, IgG CSF 0.89 IV or Less .......... Negative: No significant level of detectable HSV IgG antibody. 0.90 - 1.09 IV ........... Equivocal: Questionable presence of IgG antibodies. Repeat testing in 10-14 days may be helpful. 1.10 IV or Greater ....... Positive: IgG antibody to HSV detected, which may indicate a current or past HSV infection. The detection of antibodies to herpes simplex virus in CSF may indicate central nervous system infection. However, consideration must be given to possible contamination by blood or transfer of serum antibodies across the blood-brain barrier. Fourfold or greater rise in CSF antibodies to herpes on specimens at least 4 weeks apart are found in 74-94 % of patients with herpes encephalitis. Specificity of the test based on a single CSF testing is not established. Presently PCR is the primary means of establishing a diagnosis of herpes encephalitis. Test developed and characteristics determined by [employer]. See Compliance Statement B: ezzai - how to [email or web address] Performed at: [facility] [employer] [address] [id number] Skilled Nursing Case Manager: Piyush Rabago , Phone: [phone] 12/21/2012 8:55 AM CDT 12/21/2012 9:44 AM CDT Historical Provider MD LAB - BODY FLUID ORDERABLES [address] [phone] * HERPES SIMPLEX 1+2 ANTIBODY IGM CSF (12/21/2012 8:55 AM CDT) Herpes Simplex Virus 1/2 Antibody IgM CSF 0.22 <=0.89 IV [facility] Comment: INTERPRETIVE INFORMATION: Herpes Simplex Virus Type 1 and/or 2 Antibodies, IgM by VERENICE, CSF 0.89 IV or Less .......... Negative: No significant level of detectable HSV IgM antibody. 0.90 - 1.09 IV ........... Equivocal: Questionable presence of IgM antibodies. Repeat testing in 10-14 days may be helpful. 1.10 IV or Greater ....... Positive: IgM antibody to HSV detected, which may indicate a current or recent infection. However, low levels of IgM antibodies may occasionally persist for more than 12 months post-infection. The detection of antibodies to herpes simplex virus in CSF may indicate central nervous system infection. However, consideration must be given to possible contamination by blood or transfer of serum antibodies across the blood-brain barrier. Fourfold or greater rise in CSF antibodies to herpes on specimens at least 4 weeks apart are found in 74-94 % of patients with herpes encephalitis. Specificity of the test based on a single CSF testing is not established. Presently PCR is the primary means of establishing a diagnosis of herpes encephalitis. Test developed and characteristics determined by [employer]. See Compliance Statement B: [employer]/ Performed at: [facility] [employer] [address] [place] [id number] Skilled Nursing Case Manager: Piyush Rabago , Phone: [phone] 12/21/2012 8:55 AM CDT 12/21/2012 9:44 AM CDT Historical Provider LAB - BODY FLUID ORDERABLES Performing Organization Address City/State/RUST Co de Phone Number [address] [phone] * OLIGOCLONAL BANDS CSF+BLOOD PANEL (12/21/2012 8:55 AM CDT) Oligoclonal Bands 0 0 - 1 Bands [facility] Olig Antibody IgG See Note 768 - 1632 mg/dL [facility] Comment: Incomplete sample submission. Partial testing was performed at the client's request. Interpret results with caution. REFERENCE INTERVAL: Immunoglobulin G Access complete set of age- and/or gender-specific reference intervals for this test in the [employer] Test Directory (Beautylish). *ASSAY PERFORMED BY: [facility] [address], [place] [address] Olig Antibody IgG CSF 5.2 0.0 - 6.0 mg/dL [facility] Comment: *ASSAY PERFORMED BY: [facility] [address], [place] [address] Olig-Albumin See Note 3500 - 5200 mg/dL [facility] Comment: Incomplete sample submission. Partial testing was performed at the client's request. Interpret results with caution. *ASSAY PERFORMED BY: [facility] [address], [place] [address] Olig-Albumin CSF 22 0 - 35 mg/dL [facility] Comment: *ASSAY PERFORMED BY: [facility] [address], [place] [address] Olig-Albumin Index See Note 0.0 - 9.0 ratio [facility] Comment: Incomplete sample submission. Partial testing was performed at the client's request. Interpret results with caution. *ASSAY PERFORMED BY: [facility] [address], [place] [address] Olig Antibody IgG Index SEE NOTE 0.28 - 0.66 ratio [facility] Comment: Incomplete sample submission. Partial testing was performed at the client's request. Interpret results with caution. *ASSAY PERFORMED BY: [facility] [address], [place] [address] Olig-CSF/ Albumin Ratio 0.24 0.09 - 0.25 ratio [facility] Comment: *ASSAY PERFORMED BY: [facility] [address], [place] [address] Oligoclonal Bands CSF NEGATIVE Negative [facility] Comment: *ASSAY PERFORMED BY: [facility] [address], [place] [address] Olig-CSF IgG Synthesis Rate SEE NOTE <=8.0 mg/d [facility] Comment: Incomplete sample submission. Partial testing was performed at the client's request. Interpret results with caution. *ASSAY PERFORMED BY: [facility] [address], [place] [address] Interpretation Olig See Note () [facility] Comment: Isoelectric focusing/immunofixation reveals no oligoclonal bands in the CSF. Although no serum sample was provided for concurrent testing, the absence of oligoclonal bands in the CSF can be interpreted as a negative result for oligoclonal bands. Approximately 5 percent of patients with clinically definitive multiple sclerosis will have a negative result. *ASSAY PERFORMED BY: [facility] [address], [place] [address] 12/21/2012 8:55 AM CDT 12/21/2012 9:44 AM CDT Narrative [facility] - 01/04/2013 1:28 PM CDT Please don't draw these labs until LP is done. These labs need to be drawn within 30min of LP. Historical Provider MD LAB - BODY FLUID ORDERABLES [address] [phone] * VARICELLA ZOSTER ANTIBODY IGM CSF (12/21/2012 8:55 AM CDT) Varicella zoster Virus Antibody IgM Titer CSF 0 <=0.90 ISR [facility] Comment: INTERPRETIVE INFORMATION: VZV Ab, IgM, CSF 0.90 ISR or less ........ Negative - No significant level of IgM antibody to varicella- zoster detected. 0.91 - 1.09 ISR ......... Equivocal - Repeat testing in 10-14 days may be helpful. 1.10 ISR or greater ..... Positive - Significant level of IgM antibody to varicella- zoster virus detected, which may indicate current or recent infection. However, low levels of antibodies may occasionally persist for more than 12 months post-infection. While the presence of IgM antibodies suggest current or recent infection, low levels of IgM antibodies may occasionally persist for more than 12 months post-infection. The detection of antibodies to varicella-zoster in CSF may indicate central nervous system infection. However, consideration must be given to possible contamination by blood or transfer of serum antibodies across the blood-brain barrier. Test developed and characteristics determined by [employer]. See Compliance Statement B: ezzai - how to [email or web address] *ASSAY PERFORMED BY: [facility] [address], [place] [address] 12/21/2012 8:55 AM CDT 12/21/2012 9:44 AM CDT Historical Provider LAB - BODY FLUID ORDERABLES [address] [phone] * VARICELLA ZOSTER ANTIBODY IGG CSF (12/21/2012 8:55 AM CDT) Varicella zoster Antibody IgG Titer CSF < 10.0 <=165.9 IV [facility] Comment: INTERPRETIVE INFORMATION: VZV Ab, IgG, CSF 134 IV or Less .... Negative: No significant level of IgG antibody to varicella-zoster virus detected. 135 - 165 IV ....... Equivocal: Repeat testing in 10-14 days may be helpful. 166 IV or Greater .. Positive: IgG antibody to varicella-zoster virus detected, which may indicate a current or past varicella-zoster infection. The detection of antibodies to varicella-zoster in CSF may indicate central nervous system infection. However, consideration must be given to possible contamination by blood or transfer of serum antibodies across the blood-brain barrier. Test developed and characteristics determined by [employer]. See Compliance Statement B: [email or web address] - how to [email or web address] *ASSAY PERFORMED BY: [facility] [address], [place] [address] 12/21/2012 8:55 AM CDT 12/21/2012 9:44 AM CDT Historical Provider LAB - BODY FLUID ORDERABLES Performing Organization Address City/[facility]/ZIP Co de Phone Number [address] [phone] * CELL COUNT W DIFF CSF (12/21/2012 8:55 AM CDT) Only the most recent of2 resultswithin the time period is included. Fluid Type CSF [facility] Color Fluid COLORLESS [facility] Clarity Fluid CLEAR [facility] Xanthochromia NEGATIVE [facility] Volume Fluid 6 ML [facility] WBC, Fluid 1 MM3 [facility] RBC Fluid 3 /MM3 [facility] Lymphocyte Fluid 44 % [facility] Monocytes Fluid 44 % [facility] Macrophages Fluid 12 % [facility] Additional Comment [facility] Comment:ONLY 25 CELLS SEEN F OR DIFF. 12/21/2012 8:55 AM CDT 12/21/2012 9:44 AM CDT Historical Provider LAB - BODY FLUID ORDERABLES Performing Organization Address City/[facility]/ZIP Co de Phone Number [address] [phone] * CULTURE CSF+GRAM STAIN (12/21/2012 8:49 AM CDT) Only the most recent of2 resultswithin the time period is included. Culture CSF and Smear NO GROWTH AFTER ONE WEEK. [facility] Gram Stain NO ORGANISMS SEEN. GRAM STAINS ARE ROUTINELY SCREENED FOR THE PRESENCE OF POLYMORPHONUC LEAR CELLS. [facility] Spinal fluid (substance) 12/21/2012 8:49 AM CDT 12/21/2012 10:20 AM CDT Historical Provider LAB - MICROBIOLOG Y ORDERABLES Performing Organization Address City/[facility]/ZIP Co de Phone Number [address] [phone] * PROTEIN CSF (12/21/2012 8:47 AM CDT) Only the most recent of2 resultswithin the time period is included. Protein CSF 44 15 - 45 mg/dL [facility] 12/21/2012 8:47 AM CDT 12/21/2012 11:25 AM CDT Historical Provider LAB - BODY FLUID ORDERABLES Performing Organization Address City/[facility]/[place] [address], [facility] [phone] * GLUCOSE CSF (12/21/2012 8:47 AM CDT) Only the most recent of2 resultswithin the time period is included. Glucose,CSF-ST AT 56 40 - 70 mg/dL [facility] 12/21/2012 8:47 AM CDT 12/21/2012 11:25 AM CDT Garrett Stone MD LAB - BODY FLUID ORDERABLES Performing Organization Address [facility]/[place] Co de Phone Number [address] [phone] * PERIPHERAL BLOOD SMEAR PATH REVIEW (12/19/2012 7:45 PM CDT) Manual Differential Reviewed CONFIRMED [facility] Comment: THE DIFFERENTIAL HAS BEEN REVIEWED AND ALL RESULTS HAVE BEEN CONFIRMED. 12/19/2012 7:45 PM CDT 12/19/2012 10:53 PM CDT Weston Espinosa MD LAB - HEMATOLOGY ORD ERABLES Performing Organization Address [facility]/[place] Co de Phone Number [address] [phone] * POTASSIUM URINE RANDOM (12/19/2012 7:10 PM CDT) Only the most recent of3 resultswithin the time period is included. Potassium Urine 32 mmol/L [facility] Comment: REFERENCE RANGE: NONE ESTABLISHED FOR RANDOM URINE SPECIMENS. Urine specimen (specimen) 12/19/2012 7:10 PM CDT 12/19/2012 7:37 PM CDT Tone Dillon MD LAB - URINE CHEMISTR Y ORDERABLES Performing Organization Address [facility]/[place] Co de Phone Number [address] [phone] * CREATININE URINE RANDOM (12/19/2012 7:10 PM CDT) Only the most recent of5 resultswithin the time period is included. Creatinine Random Urine 15 mg/dL [facility] Comment: REFERENCE RANGE: NONE ESTABLISHED FOR RANDOM URINE SPECIMENS. Urine specimen (specimen) 12/19/2012 7:10 PM CDT 12/19/2012 7:37 PM CDT Tone Dillon MD LAB - URINE CHEMISTR Y ORDERABLES Performing Organization Address [facility]/ZIP Co de Phone Number [address] [phone] * (ABNORMAL) HAPTOGLOBIN (12/19/2012 12:10 PM CDT) Haptoglobin 298(H) 14 - 258 mg/dL [facility] Comment:RESULT CONFIRMED BY DILUTION Venous blood specimen (specimen) 12/19/2012 12:10 PM CDT 12/19/2012 12:45 PM CDT Tone Dillon MD LAB - CHEMISTRY TOSHIA POPE Performing Organization Address [facility]/[place] Co de Phone Number [address] [phone] * (ABNORMAL) POTASSIUM BLOOD (12/17/2012 7:12 PM CDT) Only the most recent of2 resultswithin the time period is included. Pathologist [facility] Potassium 3.2(L) 3.5 - 4.5 mmol/L [facility] Venous blood specimen (specimen) 12/17/2012 7:12 PM CDT 12/17/2012 7:29 PM CDT Tone Dillon MD LAB - CHEMISTRY TOSHIA POPE Performing Organization Address [facility]/[place] Co de Phone Number [address] [phone] * EOSINOPHIL URINE SMEAR (12/17/2012 9:41 AM CDT) Pathologist [facility] Eosin Stain Urine NO EOSINOPHILS SEEN [facility] 12/17/2012 9:41 AM CDT 12/17/2012 10:30 AM CDT Tone Dillon MD LAB - URINE CHEMISTR Y ORDERABLES Performing Organization Address [facility]/[place] [address], [facility] [phone] * CHLORIDE URINE RANDOM (12/17/2012 9:41 AM CDT) Chloride Random Urine 149 mmol/L [facility] Comment: REFERENCE RANGE: NONE ESTABLISHED FOR RANDOM URINE SPECIMENS. Urine specimen (specimen) 12/17/2012 9:41 AM CDT 12/17/2012 10:30 AM CDT Tone Dillon MD LAB - URINE CHEMISTR Y ORDERABLES Performing Organization Address [facility]/[place] Co de Phone Number [address] [phone] * OSMOLALITY BLOOD (12/16/2012 5:15 PM CDT) Osmolality 290 270 - 300 MOSM/KG [facility] Comment:RESULTS CONFIRMED BY REPEAT ANALYSIS. Venous blood specimen (specimen) 12/16/2012 5:15 PM CDT 12/16/2012 5:38 PM CDT Tone Dillon MD LAB - CHEMISTRY ORDE RABLES Performing Organization Address [facility] de Phone Number [address] [phone] * (ABNORMAL) PROTEIN URINE TIMED QUANTITATIVE (12/15/2012 11:30 AM CDT) Only the most recent of2 resultswithin the time period is included. Protein Urine < 7 mg/dL [facility] Protein 24 Hour Urine < 406(H) 77 - 197 MG/24HR [facility] Urine specimen (specimen) URINE SPECIMEN OBTAINED BY CLEAN CATCH PROCEDURE / Unknown 12/15/2012 11:30 AM CDT 12/15/2012 12:59 PM CDT Narrative [facility] - 12/15/2012 2:39 PM CDT HT 5'0 WT 68 KG [id number] START 12-14-12 1100 STOP 12-15-12 1100 Tone Dillon MD LAB - URINE CHEMISTR Y ORDERABLES Performing Organization Address [facility] de Phone Number [address] [phone] * (ABNORMAL) CREATININE URINE TIMED (12/15/2012 11:30 AM CDT) Only the most recent of2 resultswithin the time period is included. Volume Timed Urine 5800 mL [facility] Collection Time Timed Urine 24 HR [facility] Creatinine 24 Hour Urine 0.5(L) 0.8 - 2.0 G/24 HR [facility] Urine specimen (specimen) URINE SPECIMEN OBTAINED BY CLEAN CATCH PROCEDURE / Unknown 12/15/2012 11:30 AM CDT 12/15/2012 12:59 PM CDT Narrative [facility] - 12/15/2012 2:39 PM CDT HT 5'0 WT 68 KG [id number] START 12-14-12 1100 STOP 12-15-12 1100 Tone Dillon MD LAB - URINE CHEMISTR Y ORDERABLES [address] [phone] * IGG SUBCLASS 4 (12/14/2012 6:00 AM CDT) IgG Subclass 4 6 1 - 291 mg/dL [facility] Comment: Performed at: [address] [id number] Skilled Nursing Case Manager: Wesley Mercer MD, Phone: [phone] 12/14/2012 6:00 AM CDT 12/14/2012 8:16 AM CDT Jose Farrar MD LAB - CHEMISTRY TOSHIA POPE [address] [phone] * (ABNORMAL) COMPLETE PFT W/WO BRONCHODILATOR (12/13/2012 2:46 PM CDT) Impressions [facility] - 12/13/2012 2:46 PM CDT [facility] DEPARTMENT OF PULMONARY, CRITICAL CARE, AND SLEEP MEDICINE PULMONARY FUNCTION TESTS Thalia Esposito 12/14/2012 INTERPRETATION Please see technologist's comments mentioned above. SPIROMETRY: Forced vital capacity is very severely decreased. FEV1 is very severely decreased. FEV1/FVC ratio is normal. Findings suggestive of restriction. There is no significant response to bronchodilator therapy. The inspection of the patient's flow-volume loops shows normal configuration of the inspiratory and expiratory limbs. LUNG VOLUMES: TLC by plethysmography is severely decreased suggestive of restriction. DLCO: Diffusing capacity adjusted for Hb and COHb is severely decreased. AIRWAY RESISTANCE: The airway resistance and the specific conductance are normal. IMPRESSION: 1. Severe restrictive ventilatory limitation with no significant response to bronchodilators. 2. Severely decreased adjusted DLCO. 3. No comparison study is available. Antoine Yee MD Pulmonary/Critical Care Fellow I have independently reviewed the interpretation of the fellow and agree with the assessment and impression as above and the above report has been edited if needed.Please see Fellow s note for further details Matthieu Moscoso MD Automatic Mounter Director Pulmonary Hypertension program Division of Pulmonary ,Critical care and Sleep medicine [facility]. Narrative Procedure Note Provider, MD Garrett - 09/15/2017 IMPRESSION [facility] DEPARTMENT OF PULMONARY, CRITICAL CARE, AND SLEEP MEDICINE PULMONARY FUNCTION TESTS Thalia Esposito 12/14/2012 INTERPRETATION Please see technologist's comments mentioned above. SPIROMETRY: Forced vital capacity is very severely decreased. FEV1 is very severely decreased. FEV1/FVC ratio is normal. Findings suggestive of restriction. There is no significant response to bronchodilator therapy. The inspection of the patient's flow-volume loops shows normal configuration of the inspiratory and expiratory limbs. LUNG VOLUMES: TLC by plethysmography is severely decreased suggestive of restriction. DLCO: Diffusing capacity adjusted for Hb and COHb is severely decreased. AIRWAY RESISTANCE: The airway resistance and the specific conductance are normal. IMPRESSION: 1. Severe restrictive ventilatory limitation with no significant response to bronchodilators. 2. Severely decreased adjusted DLCO. 3. No comparison study is available. Antoine Yee MD Pulmonary/Critical Care Fellow I have independently reviewed the interpretation of the fellow and agree with the assessment and impression as above and the above report has been edited if needed.Please see Fellow s note for further details Matthieu Moscoso MD Automatic Mounter Director Pulmonary Hypertension program Division of Pulmonary ,Critical care and Sleep medicine [facility]. Tone Dillon MD RESPIRATORY THERAPY ORDERABLES Performing Organization Address [facility]/[place] Co de Phone Number [facility] * PROTEIN URINE RANDOM QUANTITATIVE (12/13/2012 1:35 PM CDT) Only the most recent of2 resultswithin the time period is included. Protein Urine 25 mg/dL [facility] Comment: RESULTS CONFIRMED BY REPEAT ANALYSIS. REFERENCE RANGE: NONE ESTABLISHED FOR RANDOM URINE SPECIMENS. 12/13/2012 1:35 PM CDT 12/13/2012 1:53 PM CDT Tone Dillon MD LAB - URINE CHEMISTR Y ORDERABLES Performing Organization Address [facility]/[place] Co de Phone Number [address] [phone] * RHEUMATOID FACTOR BLOOD QUANTITATIVE (12/12/2012 6:30 AM CDT) Rheumatoid Factor < 15 <30 IU/mL [facility] Venous blood specimen (specimen) 12/12/2012 6:30 AM CDT 12/12/2012 6:48 AM CDT Tone Dillon MD LAB - CHEMISTRY TOSHIA POPE Performing Organization Address [facility] [place] Co de Phone Number [address] [phone] * CYCLIC CITRUL PEPTIDE AB IGG (CCP) (12/12/2012 6:30 AM CDT) CCP Antibody IgG < 0.5 0.5 - 5.0 U/mL [facility] 12/12/2012 6:30 AM CDT 12/12/2012 6:48 AM CDT Tone Dillon MD LAB - CHEMISTRY TOSHIA POPE Performing Organization Address [facility]/[place] Co de Phone Number [address] [phone] * (ABNORMAL) URINALYSIS DIPSTICK AUTO (12/11/2012 7:30 PM CDT) Color UA ARLINE(A) STRW,YELLOW [facility] Clarity UA HAZY(A) CLEAR [facility] Specific Llewellyn Urine 1.018 1.001 - 1.030 [facility] pH UA 6.0 5.0 - 8.0 [facility] Protein UA 30(A) <20 mg/dL [facility] Glucose UA 30(A) NEGATIVE mg/dL [facility] Ketones NEGATIVE NEGATIVE mg/dL [facility] Bilirubin UA 0.5(A) NEGATIVE mg/dL [facility] Bilirubin Comment COMMENT [facility] Comment:BILIRUBIN NOT CONFIR MED due to unavailable Ictotest test. Blood UA NEGATIVE NEGATIVE [facility] Nitrite UA NEGATIVE NEGATIVE [facility] Leukocyte Esterase NEGATIVE NEGATIVE [facility] Urobilinogen UA < 2.0 <2.0 mg/dL [facility] Urine specimen (specimen) URINE SPECIMEN OBTAINED BY CLEAN CATCH PROCEDURE / Unknown 12/11/2012 7:30 PM CDT 12/11/2012 7:55 PM CDT Tone Dillon MD LAB - URINALYSIS ORD ERABLES Performing Organization Address City/[facility]/ZIP Co de Phone Number [address] [phone] * (ABNORMAL) FIBRINOGEN ACTIVITY (12/09/2012 12:00 PM CDT) Fibrinogen Clauss 153(L) 170 - 400 mg/dL [facility] Plasma specimen (specimen) 12/09/2012 12:00 PM CDT 12/09/2012 12:04 PM CDT Tone Dillon MD LAB - COAGULATION OR DERABLES Performing Organization Address [facility]/ZIP Co de Phone Number [address] [phone] * (ABNORMAL) BILIRUBIN DIRECT (12/09/2012 2:50 AM CDT) Bilirubin Direct 3.7(H) 0.0 - 0.5 mg/dL [facility] 12/09/2012 2:50 AM CDT 12/09/2012 3:54 AM CDT Narrative [facility] - 12/09/2012 4:26 AM CDT IS PATIENT ON HEPARIN? (Y OR N) N Tone Dillon MD LAB - CHEMISTRY TOSHIA ALVINOYVONNE [address] [phone] * HEPATITIS SCREEN ACUTE (12/07/2012 1:30 AM CDT) Hepatitis A Virus Antibody IgM NONREACTIVE NONREACTIVE [facility] Hepatitis C Antibody NONREACTIVE NONREACTIVE [facility] Comment: Anti-HCV screen indicates no serologic evidence of past or current infection with Hepatitis C Virus. Patients with unexplained liver disease who are immunocompromised or suspected of having acute Hepatitis C infection may benefit from Nucleic Acid Test (YISEL) for Hepatitis C Viral RNA to confirm Hepatitis C status. Hepatitis B Virus Surface Antigen NONREACTIVE NONREACTIVE [facility] Hepatitis B Core Virus Antibody IgM NONREACTIVE NONREACTIVE [facility] 12/07/2012 1:30 AM CDT 12/07/2012 3:45 AM CDT Guru Baez MD LAB - CHEMISTRY TOSHIA POPE Performing Organization Address City/[facility]/ZIP Co de Phone Number [address] [phone] * NEISSERIA GONORRHOEAE DAT (11/19/2012 9:00 PM CDT) Neisseria gonorrhoeae DAT () [facility] Comment: Specimen: Swab Reference: [id number] Test: Nucleic Acid Amplification/Detection of Neisseria Gonorrhoeae Interpretation: Neisseria gonorrhoeae: Not Detected Reference Range: Not Detected This analysis was performed by an [place] FDA approved test methodology (Gen-Probe Aptima 2). Test performed at [facility], [address] [place] [address] This case has been personally reviewed and interpreted by the attending (teaching) pathologist. Final Diagnosis performed by Sultan Radha Bonilla MD, PhD. Electronically signed 11/23/2012 11/19/2012 9:00 PM CDT 11/19/2012 9:29 PM CDT Narrative Authorizing Provider Result Lamont Phelan MD LAB - MICROBIOLOGY [facility] [address] [phone] * CHLAMYDIA TRACHOMATIS DAT (11/19/2012 9:00 PM CDT) Chlamydia trachomatis DAT () [facility] Comment: Specimen: Swab Reference: [id number] Test: Nucleic Acid Amplification/Detection of Chlamydia Trachomatis Interpretation: Chlamydia trachomatis: Not Detected Reference Range: Not Detected This analysis was performed by an [place] FDA approved test methodology (Gen-Probe Aptima 2). Test performed at [facility], [address] [place] [address] This case has been personally reviewed and interpreted by the attending (teaching) pathologist. Final Diagnosis performed by Sultan Radha Bonilla MD, PhD. Electronically signed 11/23/2012 11/19/2012 9:00 PM CDT 11/19/2012 9:29 PM CDT Winter Phelan MD LAB - MICROBIOLOGY [facility] Performing Organization Address [facility]/[place] [address], [facility] [phone] * CHLAMYDIA + GC AMPLIFIED PROBE (10/28/2011 6:02 PM CDT) Chlamydia Amplified Probe Negative Negative 10/31/2011 1:18 PM CDT [facility] GC Amplified Probe Negative Negative 10/31/2011 1:18 PM CDT [facility] Miscellaneous samples (specimen) URINE / Unknown 10/28/2011 6:02 PM CDT 10/28/2011 6:07 PM CDT Narrative Authorizing Provider Result Lamont Ta MD LAB - MICROBIOLOGY [facility] [address] [place] [address] * (ABNORMAL) URINALYSIS MICROSCOPIC ONLY (10/28/2011 2:17 PM CDT) RBC UA 0-5 0 - 5 # /hpf 10/28/2011 3:26 PM CDT [facility] WBC UA 0-5 0 - 5 # /hpf 10/28/2011 3:26 PM CDT [facility] Bacteria UA 1+(A) None, Trace 10/28/2011 3:26 PM CDT [facility] Epithelial Cell UA 20-50(A) 0 - 5 10/28/2011 3:26 PM CDT [facility] Mucus UA Trace None, Trace 10/28/2011 3:26 PM CDT [facility] Urine specimen (specimen) URINE SPECIMEN OBTAINED BY CLEAN CATCH PROCEDURE / Unknown 10/28/2011 2:17 PM CDT 10/28/2011 2:32 PM CDT Billy Stubbs MD LAB - URINALYSIS OR DERABLES Performing Organization Address [facility]/[place] Co de Phone Number [facility] [address] [place] [address] * HCG URINE QUALITATIVE - POCT (IP) BEAKER (10/28/2011 2:10 PM CDT) HCG Qual Urine negative Negative [facility] PO[facility] QC Verified yes Yes [facility] PO CT TESTING Urine specimen (specimen) URINE / Unknown 10/28/2011 2:10 PM CDT Billy Stubbs MD LAB - POINT OF CARE ORDERABLES Performing Organization Address [facility]/[place] Co de Phone Number [facility] [address] [place] [address] * CARDIAC ECHOCARDIOGRAM COMPLETE ORDER (03/30/2010 11:12 AM ACTING INSTRUCTOR) Only the most recent of2 resultswithin the time period is included. Narrative Procedure Note Document, Scanned - 03/29/2010 2:06 PM ACTING INSTRUCTOR Scanned Document ECHO ORDERABLES * ECHO CONSULT - PEDIATRIC (03/11/2010 9:15 AM ACTING INSTRUCTOR) Only the most recent of2 resultswithin the time period is included. 03/11/2010 9:15 AM ACTING INSTRUCTOR Narrative [facility] - 03/11/2010 12:08 PM ACTING INSTRUCTOR , Congenital Transthoracic Echocardiogram 2D, M-mode, Doppler, and Color Doppler Name: THALIA ESPOSITO MR #: [id number] Study date: 03/11/2010 Age: 19 years : 1990 Gender: Female Ht: 61 in / 154.9 cm Wt: 124.7 lb / 56.7 kg BSA: 1.55 m HR: BP: / age: NATANAEL: Maternal age: REFERRING PHYSICIAN: Bob Varma MD FISH BUTCHER: Olivia Bridges MD PEDIATRIC ECHO ADOPTION SOCIAL WORKER: Mireya Beltran RDCS Allergies: NKA History: Check myocardial function. Rule out pericaridal effusion. Signs/symptoms include murmur. Procedure: The procedure was performed in the echo lab. Anatomic relationships: Visceral situs: normal. Left sided cardiac apex (levocardia). Normal atrial situs (atrial situs solitus). Concordant atrioventricular alignment. Ventricular d-loop. Normal infundibular anatomy. Concordant ventriculoarterial connection. Normally related great vessels. Systemic veins: SVC: The superior vena cava and left innominate vein appeared of normal caliber, with normal flow. IVC: The inferior vena cava was normal in size and course. IVC Doppler: The flow pattern was normal. Pulmonary veins: The pulmonary veins drained normally to the left atrium. Doppler: Doppler flow pattern was normal in the pulmonary vein(s). Right atrium: Size was normal. Left atrium: Size was normal. Atrial septum: No defect or patent foramen ovale was identified. Tricuspid valve: The valve structure was normal. Doppler: The transtricuspid velocity was within the normal range. There was no evidence for tricuspid stenosis. There was no regurgitation. Mitral valve: Valve structure was normal. There is no mitral valve prolapse. Doppler: The transmitral velocity was within the normal range. There was no evidence for stenosis. There was no regurgitation. Right ventricle: The cavity size was normal. Wall thickness was normal. Systolic function was normal. RV outflow tract: There was no obstruction. Left ventricle: The cavity size was normal. Wall thickness was normal. Systolic function was normal. There were no regional wall motion abnormalities. Doppler: Left ventricular diastolic function parameters were normal. LV outflow tract: There was no outflow obstruction. Ventricular septum: Thickness was normal. The septum was intact. Pulmonic valve: Leaflets exhibited normal thickness and normal cuspal separation. Doppler: The transpulmonic velocity was within the normal range. Aortic valve: The valve was trileaflet. Leaflets exhibited normal thickness and normal cuspal separation. Doppler: Transaortic velocity was within the normal range. There was no stenosis. There was no regurgitation. Pulmonary artery: The main pulmonary artery was normal, with normal-sized, confluent proximal branch pulmonary arteries. Aorta: There was a normal-sized aortic arch with normal brachiocephalic branching. The root was normal in size. The ascending aorta size was normal. Coronary arteries: The size and course of the left main, proximal left anterior descending, and proximal right coronary arteries were normal. Right coronary artery: Flow was normal. Left main coronary artery: Flow was normal. Left anterior descending: Flow was normal. Extracardiac shunting: No ductal shunt was detected by Doppler. Pericardium: There was no pericardial effusion. The pericardium was normal in appearance. Impressions: - Diagnoses: Normal echocardiogram. - Pericardium, pleura: There was no pericardial effusion. Prepared and signed by Olivia Bridges MD Signed 03/11/2010 12:12:37 System measurement tables MM %FS: 36.6 % Ao Diam: 26.7 mm EDV(Teich): 100.1 ml EF(Teich): 66.4 % ESV(Teich): 33.6 ml IVSd: 3.7 mm IVSs: 6.5 mm LA Diam: 26.7 mm LA/Ao: 1 LVIDd: 46.6 mm LVIDs: 29.5 mm LVPWd: 5.1 mm LVPWs: 7.4 mm LVd Mass: 57.5 g LVd Mass (ASE): 57.5 g LVd Mass Ind (ASE): 37.1 g/m2 LVd Mass Index: 37.1 g/m2 LVs Mass: 44.3 g LVs Mass (ASE): 46.9 g LVs Mass Ind (ASE): 30.3 g/m2 LVs Mass Index: 28.6 g/m2 SV(Teich): 66.5 ml Addendum Date: 03/11/2010 12:14:10 PM There is a tiny PFO. Procedure Note 03/11/2010 , Congenital Transthoracic Echocardiogram 2D, M-mode, Doppler, and Color Doppler Name: THALIA ESPOSITO MR #: [id number] Study date: 03/11/2010 Age: 19 years : 1990 Gender: Female Ht: 61 in / 154.9 cm Wt: 124.7 lb / 56.7 kg BSA: 1.55 m HR: BP: / age: NATANAEL: Maternal age: REFERRING PHYSICIAN: Bob Varma MD FISH BUTCHER: Olivia Bridges MD PEDIATRIC ECHO ADOPTION SOCIAL WORKER: Mireya Beltran RDCS Allergies: NKA History: Check myocardial function. Rule out pericaridal effusion. Signs/symptoms include murmur. Procedure: The procedure was performed in the echo lab. Anatomic relationships: Visceral situs: normal. Left sided cardiac apex (levocardia). Normal atrial situs (atrial situs solitus). Concordant atrioventricular alignment. Ventricular d-loop. Normal infundibular anatomy. Concordant ventriculoarterial connection. Normally related great vessels. Systemic veins: SVC: The superior vena cava and left innominate vein appeared of normal caliber, with normal flow. IVC: The inferior vena cava was normal in size and course. IVC Doppler: The flow pattern was normal. Pulmonary veins: The pulmonary veins drained normally to the left atrium. Doppler: Doppler flow pattern was normal in the pulmonary vein(s). Right atrium: Size was normal. Left atrium: Size was normal. Atrial septum: No defect or patent foramen ovale was identified. Tricuspid valve: The valve structure was normal. Doppler: The transtricuspid velocity was within the normal range. There was no evidence for tricuspid stenosis. There was no regurgitation. Mitral valve: Valve structure was normal. There is no mitral valve prolapse. Doppler: The transmitral velocity was within the normal range. There was no evidence for stenosis. There was no regurgitation. Right ventricle: The cavity size was normal. Wall thickness was normal. Systolic function was normal. RV outflow tract: There was no obstruction. Left ventricle: The cavity size was normal. Wall thickness was normal. Systolic function was normal. There were no regional wall motion abnormalities. Doppler: Left ventricular diastolic function parameters were normal. LV outflow tract: There was no outflow obstruction. Ventricular septum: Thickness was normal. The septum was intact. Pulmonic valve: Leaflets exhibited normal thickness and normal cuspal separation. Doppler: The transpulmonic velocity was within the normal range. Aortic valve: The valve was trileaflet. Leaflets exhibited normal thickness and normal cuspal separation. Doppler: Transaortic velocity was within the normal range. There was no stenosis. There was no regurgitation. Pulmonary artery: The main pulmonary artery was normal, with normal-sized, confluent proximal branch pulmonary arteries. Aorta: There was a normal-sized aortic arch with normal brachiocephalic branching. The root was normal in size. The ascending aorta size was normal. Coronary arteries: The size and course of the left main, proximal left anterior descending, and proximal right coronary arteries were normal. Right coronary artery: Flow was normal. Left main coronary artery: Flow was normal. Left anterior descending: Flow was normal. Extracardiac shunting: No ductal shunt was detected by Doppler. Pericardium: There was no pericardial effusion. The pericardium was normal in appearance. Impressions: - Diagnoses: Normal echocardiogram. - Pericardium, pleura: There was no pericardial effusion. Prepared and signed by Olivia Bridges MD Signed 03/11/2010 12:12:37 System measurement tables MM %FS: 36.6 % Ao Diam: 26.7 mm EDV(Teich): 100.1 ml EF(Teich): 66.4 % ESV(Teich): 33.6 ml IVSd: 3.7 mm IVSs: 6.5 mm LA Diam: 26.7 mm LA/Ao: 1 LVIDd: 46.6 mm LVIDs: 29.5 mm LVPWd: 5.1 mm LVPWs: 7.4 mm LVd Mass: 57.5 g LVd Mass (ASE): 57.5 g LVd Mass Ind (ASE): 37.1 g/m2 LVd Mass Index: 37.1 g/m2 LVs Mass: 44.3 g LVs Mass (ASE): 46.9 g LVs Mass Ind (ASE): 30.3 g/m2 LVs Mass Index: 28.6 g/m2 SV(Teich): 66.5 ml Addendum Date: 03/11/2010 12:14:10 PM There is a tiny PFO. Bob Varma MD ECHO ORDERABLES [facility] [address] [place] [address] * CT CHEST NON CONTRAST (03/11/2010 9:15 AM ACTING INSTRUCTOR) Anatomical Region Laterality Modality Chest Computed Tomogra phy 03/11/2010 10:4 7 AM ACTING INSTRUCTOR Impressions 03/11/2010 10:47 AM ACTING INSTRUCTOR 1. Persistent bilateral axillary lymphadenopathy. This has improved since the prior study. 2. Small residual amount of pericardial fluid and/or thickening. This is also markedly improved since the prior study. 3. Interval resolution of bilateral pleural effusions and bilateral pulmonary parenchymal consolidations. Presently there is no evidence of focal alveolar infiltrate or interstitial lung disease. 4. Two small right lower lobe pulmonary nodules, slightly diminished in size since the prior study. No new nodules are seen. Narrative 03/11/2010 10:47 AM ACTING INSTRUCTOR Noncontrast CT scan of the chest performed March 11, 2010. History: Lupus. Helical axial sections were obtained from the thoracic inlet through the adrenal glands without the use of intravenous contrast. Coronal reformatted images were created. Comparison is made with prior CT scan of February 03, 2007. There is still evidence of significant bilateral axillary lymphadenopathy with the largest lymph node measuring 1.2 cm in short axis dimension in the left axilla. The size and number of these nodes has however diminished since the prior study. Several subcentimeter lymph nodes are again seen in the prevascular space and in the right tracheobronchial angle. While additional tiny mediastinal and hilar lymph nodes are difficult to exclude without intravenous contrast, no bulky lymphadenopathy is seen in these areas. There is soft tissue density seen in the subcarinal region which may represent residual lymphadenopathy and/ or portions of the esophagus. There is no evidence of retrocrural lymphadenopathy. The heart is somewhat prominent in size. A small amount of residual pericardial thickening and/or pericardial fluid is seen. The previously seen bilateral pleural effusions have resolved. Presently there is no evidence of focal alveolar infiltrate, pleural effusion, or pneumothorax. A linear fibrotic streak is seen in the right middle lobe on image #31. A second linear streak is seen in the left lower lobe on image #33. Two tiny pulmonary nodules are again seen in the right lower lobe. There is a 3 mm nodule on image 27 and a 4 mm nodule on image 29. These previously measured 4 and 5 mm respectively on December 04, 2006. No new pulmonary nodules are seen. Without the use of intravenous contrast evaluation of the solid visceral organs is suboptimal. The visualized portions of the liver and spleen are unremarkable. The spleen measures 13 cm in maximum diameter. The visualized portions of the gallbladder and pancreas are unremarkable. There is no evidence of adrenal mass. The upper poles of both kidneys are unremarkable. There is no evidence of ascites in the upper abdomen. The visualized bony structures are intact. Procedure Note Hortencia Hicks MD - 03/11/[address] scan of the chest performed March 11, 2010. History: Lupus. Helical axial sections were obtained from the thoracic inlet through the adrenal glands without the use of intravenous contrast. Coronal reformatted images were created. Comparison is made with prior CT scan of February 03, 2007. There is still evidence of significant bilateral axillary lymphadenopathy with the largest lymph node measuring 1.2 cm in short axis dimension in the left axilla. The size and number of these nodes has however diminished since the prior study. Several subcentimeter lymph nodes are again seen in the prevascular space and in the right tracheobronchial angle. While additional tiny mediastinal and hilar lymph nodes are difficult to exclude without intravenous contrast, no bulky lymphadenopathy is seen in these areas. There is soft tissue density seen in the subcarinal region which may represent residual lymphadenopathy and/ or portions of the esophagus. There is no evidence of retrocrural lymphadenopathy. The heart is somewhat prominent in size. A small amount of residual pericardial thickening and/or pericardial fluid is seen. The previously seen bilateral pleural effusions have resolved. Presently there is no evidence of focal alveolar infiltrate, pleural effusion, or pneumothorax. A linear fibrotic streak is seen in the right middle lobe on image #31. A second linear streak is seen in the left lower lobe on image #33. Two tiny pulmonary nodules are again seen in the right lower lobe. There is a 3 mm nodule on image 27 and a 4 mm nodule on image 29. These previously measured 4 and 5 mm respectively on December 04, 2006. No new pulmonary nodules are seen. Without the use of intravenous contrast evaluation of the solid visceral organs is suboptimal. The visualized portions of the liver and spleen are unremarkable. The spleen measures 13 cm in maximum diameter. The visualized portions of the gallbladder and pancreas are unremarkable. There is no evidence of adrenal mass. The upper poles of both kidneys are unremarkable. There is no evidence of ascites in the upper abdomen. The visualized bony structures are intact. IMPRESSION 1. Persistent bilateral axillary lymphadenopathy. This has improved since the prior study. 2. Small residual amount of pericardial fluid and/or thickening. This is also markedly improved since the prior study. 3. Interval resolution of bilateral pleural effusions and bilateral pulmonary parenchymal consolidations. Presently there is no evidence of focal alveolar infiltrate or interstitial lung disease. 4. Two small right lower lobe pulmonary nodules, slightly diminished in size since the prior study. No new nodules are seen. Bob Varma MD CT ORDERABLES * (ABNORMAL) CARDIOLIPIN ANTIBODY PANEL (01/21/2010 2:30 PM CDT) Pathologist [facility] Cardiolipin Antibody IgG 13.66 <23 GPL [facility] Cardiolipin Antibody IgM 12.73(H) <11 MPL [facility] BLOOD SPECIMEN / Unknown 01/21/2010 2:30 PM CDT 01/21/2010 2:53 PM CDT Narrative Resulting Agency Comment Performed By [facility] [address] [place] [address] Elizabeth Hazel MD LAB - SEROLOGY TOSHIA POPE [facility] Organization Address City/State/[facility] de Phone Number [facility] [address] [place] [address] * (ABNORMAL) LUPUS ANTICOAGULANT PANEL (01/21/2010 2:30 PM CDT) Only the most recent of2 resultswithin the time period is included. PT (Lupus Anticoag) 11.4(L) 12.0 - 15.5 seconds [facility] PTT Lupus Anticoagulant 43 32 - 48 seconds [facility] dRVVT 34 33 - 44 seconds [facility] Thrombin Time Not Applicable 14.7 - 19.5 seconds [facility] Reptilase Time Not Applicable <=21.9 seconds [facility] PTT Heparin Neutralized Not Applicable 32 - 48 seconds [facility] PTT-D Corrected Not Applicable 32 - 48 seconds [facility] Platelet Neutralization Not Applicable Negative seconds [facility] dRVVT 1:1 Mix Not Applicable 33 - 44 seconds [facility] dRVVT Confirmatory Test Not Applicable Negative [facility] Hexagonal Phospholipid Neutral Not Applicable Negative [facility] Interpretation Lupus Anticoagulant [facility] Comment: Lupus anticoagulant not detected. The phospholipid-dependent screening tests (PTT, DRVVT) are not prolonged. Lupus anticoagulant antibodies are heterogeneous and antibody titers fluctuate over time. Laboratory tests used to identify lupus anticoagulants demonstrate variable sensitivity. If there is strong clinical suspicion for antiphospholipid antibody syndrome (APS), consider testing for cardiolipin and beta-2 glycoprotein 1 antibodies (IgG and IgM) if this testing has not already been performed. BLOOD SPECIMEN / Unknown 01/21/2010 2:30 PM CDT 01/21/2010 2:53 PM CDT Narrative [facility] - 01/24/2010 8:39 PM CDT 1 Resulting Agency Comment Performed By [facility] [place], [place] [address] Elizabeth Hazel MD LAB - HEMATOLOGY OR DERABLES Performing Organization Address City/State/[place] Co de Phone Number [facility] [address] [place] [address] * BETA-2 GLYCOPROTEIN 1 ANTIBODY IGG/IGM PANEL (01/21/2010 2:30 PM CDT) Pathologist [facility] Beta-2 Glycoprotein Antibody IgG 12 0 - 20 [facility] Beta-2 Glycoprotein Antibody IgM 11 0 - 20 [facility] Comment Ref Lab [facility] Comment: TEST INFORMATION: Beta-2 Glycoprotein I Abs, IgG and IgM An IgG and/or IgM result of greater than 20 [facility] and/or [facility] on at least two occasions and at least 12 weeks apart is suggestive of antiphospholipid syndrome. Diagnosis should NOT be made solely on the basis of a single specimen. BLOOD SPECIMEN / Unknown 01/21/2010 2:30 PM CDT 01/21/2010 2:53 PM CDT Narrative [facility] - 01/27/2010 8:51 PM CDT 1 Resulting Agency Comment Performed By [facility] [place], [place] [address] Elizabeth Hazel MD LAB - CHEMISTRY ORD ERABLES Performing Organization Address City/[facility]/[place] Co de Phone Number [facility] [address] [place] [address] * VITAMIN D 1,25 DIHYDROXY (01/21/2010 2:30 PM CDT) Only the most recent of2 resultswithin the time period is included. Vitamin D, 1,25 Dihydroxy 29 15 - 75 pg/ml [facility] Comment Ref Lab [facility] Comment: TEST INFORMATION: Vitamin D, 1,25-Dihydroxy This test is primarily indicated during patient evaluation for hypercalcemia and renal failure. A normal result does not rule out Vitamin D deficiency. The recommended test for diagnosing Vitamin D deficiency is Vitamin D 25-hydroxy ([id number]). BLOOD SPECIMEN / Unknown 01/21/2010 2:30 PM CDT 01/21/2010 2:53 PM CDT Narrative [facility] - 01/26/2010 9:10 PM CDT 1 Resulting Agency Comment Performed By [employer] [address] [place], [place] [address] Elizabeth Hazel MD LAB - CHEMISTRY ORD ERABLES Performing Organization Address [facility]/[place] Co de Phone Number [facility] [place] [address] * (ABNORMAL) BETA-2 GLYCOPROTEIN 1 ANTIBODY IGA (07/09/2009 3:30 PM CDT) Pathologist [facility] Beta-2 Glycoprotein Antibody IgA 37(H) 0 - 20 [facility] BLOOD SPECIMEN / Unknown 07/09/2009 3:30 PM CDT Narrative Resulting Agency Comment Performed By [employer] [address] [place], [place] [address] Bob Varma MD LAB - SEROLOGY ORDER HEATHER Performing Organization Address City/[facility]/[place] Co de Phone Number [facility] * (ABNORMAL) CBC W MANUAL DIFFERENTIAL (07/09/2009 3:30 PM CDT) Pathologist [facility] WBC 4.77 4.5 - 11.0 K/cumm [facility] RBC 4.10 4.10 - 5.10 mill/cumm [facility] Hemoglobin 10.7(L) 12.0 - 16.0 gm/dl [facility] Hematocrit 31.9(L) 36.0 - 47.0 % [facility] MCV 77.8(L) 78.0 - 102.0 cu microns [facility] MCH 26.1 25.0 - 35.0 uug [facility] MCHC 33.5 31.0 - 37.0 % [facility] RDW 14.9 % [facility] MPV 9.8 fl [facility] Platelet Count 300 100 - 400 K/cumm [facility] Comment Manual Diff Done [facility] Band % Manual 3 % [facility] Neutrophils % Manual 77 31 - 78 % [facility] Lymphocytes % Manual 12(L) 13 - 54 % [facility] Monocytes % Manual 3(L) 4 - 13 % [facility] Eosinophils % Manual 1 0 - 8 % [facility] Atypical Lymphocyte % Manual 4 % [facility] RBC Morphology Slight Anisocytosis Poikylocytosis, Few Ovalocytes [facility] BLOOD SPECIMEN / Unknown 07/09/2009 3:30 PM CDT Bob Varma MD LAB - HEMATOLOGY ORD ERABLES [facility] * COMPLETE PFT (07/09/2009 12:00 AM CDT) 07/09/2009 Narrative Procedure Note Greg Peraza MD - 07/09/2009 12:00 [facility] Thalia is a 19-year-old girl with a history of lupus who is a patientof Dr. Wills. She gave good effort with good technique on the test.Current medications include prednisone, hydroxychloroquine and aspirin.There are no previous studies. On this study, she has a severe restrictivedefect with a forced vital capacity of 44% of predicted. There is nosignificant flow defect. Her total lung capacity is 45% of predicted.Diffusion is proportionately decreased with an adjusted diffusion capacityof 42% of predicted. This was done using a hemoglobin of 10.7. FINAL IMPRESSION: Severe restrictive lung disease without evidence of flow limitation. Dictated By: GREG PERAZA MD GA/raghavendra JOB ID: [id number] cc: SESAR COLMENARES MD Greg ePraza MD RESPIRATORY THERAPY ORDERABLES * CULTURE FUNGUS SKIN HAIR NAILS (06/22/2009 6:52 PM CDT) Report [facility] Comment: Final - CALCOFLUOR STAIN Heavy Yeast seen. CULTURE Growth of TRICHOPHYTON SPECIES NAIL SPECIMEN / Unknown 06/22/2009 6:52 PM CDT [facility] LAB - MICROBIO LOGY ORDERABLES [facility] * MRI LOWER EXT NON JOINT WITH AND WITHOUT CONTRAST RIGHT (06/22/2009 5:40 PM CDT) Anatomical Region Laterality Modality Lower Extremity Other 06/22/2009 5:40 PM CDT Narrative 06/23/2009 10:22 AM CDT MRI right lower extremity Technique- Coronal- STIR Sagittal- STIR, T1, T1 FS+C Axial- T1, T2 FS, T1 FS+C The subcutaneous fat is hyperintense on T2-weighted images anteriorly. Bone marrow and muscle signals are normal. Joint fluid is not excessive. No significant abnormality is demonstrated post contrast. Diagnosis- Normal MRI of right lower extremity Reading Radiologist- MILKA ORTEGA MD Releasing Radiologist- MILKA ORTEGA MD Released Date Time- 06/23/091022 Wafer Polisher- RANULFO JOHANSEN MD SUZANNA PEREA MARILYN A ORD- MAXWELL, MARILYN A CON- STCLAIR, ANGELA M PCP- COSTELLO, JOSEPH P III SCP- Procedure Note Jose Milka - 06/23/2009 MRI right lower extremity Technique- Coronal- STIR Sagittal- STIR, T1, T1 FS+C Axial- T1, T2 FS, T1 FS+C The subcutaneous fat is hyperintense on T2-weighted images anteriorly. Bone marrow and muscle signals are normal. Joint fluid is not excessive. No significant abnormality is demonstrated post contrast. Diagnosis- Normal MRI of right lower extremity Reading Radiologist- MILKA ORTEGA MD Releasing Radiologist- MILKA ORTEGA MD Released Date Time- 06/23/09 1023 Wafer Polisherclaus JOHANSEN MD SUZANNA PEREA MARILYN A ORD- MAXWELL, MARILYN A CON- STCLAIR, ANGELA M PCP- COSTELLO, JOSEPH P III [facility]- Suzanna Danielle MD MR ORDERABLES * (ABNORMAL) CREATININE BLOOD (06/22/2009 2:45 PM CDT) Creatinine 0.41(L) 0.50 - 1.06 mg/dl [facility] Specimen Type/Condition no visible hemolysis [facility] BLOOD SPECIMEN / Unknown 06/22/2009 2:45 PM CDT Suzanna Danielle MD LAB - CHEMISTRY ORD ERABLES [facility] * MPO/MD 3 AUTOANTIBODIES PANEL (06/21/2009 3:32 AM CDT) Myeloperoxidase Antibody 1 0 - 19 AU/mL [facility] Serine Protease 3 14 0 - 19 AU/mL [facility] Comment Ref Lab CARD INAL [facility] Comment: REFERENCE INTERVALF Myeloperoxidase Abs, IgG 19 AU/mL or Less ......... Negative 20-25 AU/mL .............. Equivocal 26 AU/mL or Greater ...... Positive Approximately 90% of patients with a P-ANCA pattern by IFA have antibodies specific for MPO. Approximately 85% of patients with a C-ANCA pattern by IFA have antibodies specific for PR3. REFERENCE INTERVALF Serine Protease 3, IgG 19 AU/mL or Less ........ Negative 20-25 AU/mL ............. Equivocal 26 AU/mL or Greater ..... Positive Approximately 90% of patients with a P-ANCA pattern by IFA have antibodies specific for MPO. Approximately 85% of patients with a C-ANCA pattern by IFA have antibodies specific for PR3. BLOOD SPECIMEN / Unknown 06/21/2009 3:32 AM CDT Narrative [facility] - 06/25/2009 8:54 AM CDT 1 Resulting Agency Comment Performed By [employer] [address] [place] [id number] Tiera Hurd DO LAB - CHEMISTRY ORD ERABLES [facility] * XR TIBIA AND FIBULA 2 VW RIGHT (06/21/2009 1:41 AM ACTING INSTRUCTOR) Anatomical Region Laterality Modality Lower Extremity Other 06/21/2009 1:41 AM ACTING INSTRUCTOR Narrative 06/21/2009 10:18 AM CDT Right tibia-fibula AP, lateral The bones, soft tissues, and joint spaces are normal. Diagnosis- Normal. Reading Stephen ORTEGA MD Releasing Stephen ORTEGA MD Released Date Time- 06/21/09 1019 Janice ORTEGA MD SUZANNA PEREA MARILYN A ORD- SIMONES, MICHAEL A CON- STCLAIR, ANGELA M PCP- COSTELLO, JOSEPH P III SCP- Procedure Note Milka Ortega - 06/21/2009 Right tibia-fibula AP, lateral The bones, soft tissues, and joint spaces are normal. Diagnosis- Normal. Reading Stephen ORTEGA MD Releasing Stephen ORTEGA MD Released Date Time- 06/21/09 1019 Janice ORTEGA MD SUZANNA PEREA MARILYN A ORD- SIMONES, MICHAEL A CON- STCLAIR, ANGELA M PCP- COSTELLO, JOSEPH P III SCP- Tiera Hurd DO DIAGNOSTIC IMAGING ORDERABLES Care Teams Laboratory Cureman Relationship Specialty Start Date End Date Aurea Lott DO [address] [place] [phone] PCP - General 10/14/21 Jim Moreland MD [address] [facility] [place] [address] Resident - PCP Internal Medicine 10/14/21
--- OUTSIDE RECORDS SUMMARY | 2024-06-12 17:16 | XMS_ITS | Referral Summary ---
Author Organization [facility] Address [address] [place] [address] Care Team Providers Care Print Manager Name Role Phone Aurea Lott DO Primary Care Provider [phone] Jim Moreland MD Unavailable [phone] Source Comments [facility],non-owned Affiliates and Associated Physician Practices is amultiple site organization consisting of ambulatory clinics and hospital sitesin [place], [place], [place] and [place]. This disclosure is being madepursuant to the Care Everywhere program and may not contain all information available regarding this patient. Last updated 17.[facility] Encounters Date Type Department Care Team Description 06/11/2024 Travel 04/22/2024 Travel from Last 3 Months Allergies Active Allergy Reactions Criticality Noted Date Comments Amoxicillin Urticaria Medium 04/01/2019 Sulfamethoxazole W-Trimethoprim FOOD ASSEM[employer]ER KITCHEN Dysfunction 08/09/2017 mentql confusion Iron Vomiting 10/20/2020 Vomits oral iron Lamotrigine Itching 04/21/2022 Penicillins Urticaria,Unknown Medium 09/25/2020 Metoclopramide [employer] Dysfunction 08/09/2017 Paralysis Medications * Be aware that medications may not be up to date on this document. Alwaysverify current medications with the patient. Medication Sig Dispensed Refills Start Date End Date Status hydroxychloroquine (Plaquenil) 200 MG tablet Take 1.5 (one and one-half) tablets by mouth once daily 45 tablet 5 2 Active famotidine (Pepcid) 20 MG tablet Take 1 (one) tablet by mouth every 12 hours 20 tablet 3 Active diphenhydrAMINE (Benadryl) 25 MG capsule Take 1 (one) capsule by mouth every 4 hours as needed for Itching 30 capsule 3 Active methocarbamol (Robaxin) 500 MG tablet Take 1 (one) tablet by mouth every 6 hours as needed for Muscle Spasms 16 tablet 3 Active Additional Information Patient not taking.Reported on 11/23/2022 topiramate (Topamax) 25 MG tabletIndications:Int ractable migraine with status migrainosus, unspecified migraine type Take 1 (one) tablet by mouth 2 times daily 60 tablet 11 3 Active rizatriptan (Maxalt) 5 MG tabletIndications:Int ractable migraine with status migrainosus, unspecified migraine type Take 1 tab by mouth once at first sign of migraine. May repeat one time after 2 hours if needed. 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,Therapeutic drug monitoring Take 1 (one) tablet by mouth 2 times daily 60 tablet 3 Active gabapentin (Neurontin) 100 MG capsule Take 1 (one) capsule by mouth at bedtime 90 capsule 2 3 Active amphetamine-dextroamp hetamine XR 24hr (Adderall XR) 30 MG capsuleIndications:At tention Deficit Hyperactivity Disorder Take 1 (one) capsule by mouth once daily for 30 days Reasons: Attention Deficit Hyperactivity Disorder 30 capsule 5 025 Active amphetamine-dextroamp hetamine XR 24hr (Adderall XR) 30 MG capsuleIndications:At tention Deficit Hyperactivity Disorder Take 1 (one) capsule by mouth once daily for 30 days Reasons: Attention Deficit Hyperactivity Disorder 30 capsule 5 025 Active amphetamine-dextroamp hetamine XR 24hr (Adderall XR) 30 MG capsuleIndications:At tention Deficit Hyperactivity Disorder Take 1 (one) capsule by mouth once daily Reasons: Attention Deficit Hyperactivity Disorder 30 capsule 5 Active amphetamine-dextroamp hetamine (Adderall) 10 MG tabletIndications:Att ention Deficit Hyperactivity Disorder Take 1 (one) tablet by mouth once daily as needed Reasons: Attention Deficit Hyperactivity Disorder 30 tablet 5 025 Active amphetamine-dextroamp hetamine (Adderall) 10 MG tabletIndications:Att ention Deficit Hyperactivity Disorder Take 1 (one) tablet by mouth once daily as needed Reasons: Attention Deficit Hyperactivity Disorder 30 tablet 5 025 Active amphetamine-dextroamp hetamine (Adderall) 10 MG tabletIndications:Att ention Deficit Hyperactivity Disorder Take 1 (one) tablet by mouth once daily as needed Reasons: Attention Deficit Hyperactivity Disorder 30 tablet 5 Active QUEtiapine (SEROquel) 50 MG tablet Take 1 (one) tablet by mouth at bedtime 90 tablet 1 5 Active amphetamine-dextroamp hetamine XR 24hr (Adderall XR) 30 MG capsuleIndications:At tention deficit hyperactivity disorder (ADHD), combined type Take 1 (one) capsule by mouth once daily 30 capsule 3 025 Discontinu ed(List Clean-Up) amphetamine-dextroamp hetamine (Adderall) 10 MG tabletIndications:Att ention deficit hyperactivity disorder (ADHD), combined type Take 1 (one) tablet by mouth once daily after lunch 30 tablet 3 025 Discontinu ed(List Clean-Up) amphetamine-dextroamp hetamine XR 24hr (Adderall XR) 30 MG capsuleIndications:At tention deficit hyperactivity disorder (ADHD), combined type Take 1 (one) capsule by mouth once daily 30 capsule 4 025 Discontinu ed(List Clean-Up) amphetamine-dextroamp hetamine (Adderall) 10 MG tabletIndications:Att ention deficit hyperactivity disorder (ADHD), combined type Take 1 (one) tablet by mouth once daily after lunch 30 tablet 4 025 Discontinu ed(List Clean-Up) amphetamine-dextroamp hetamine XR 24hr (Adderall XR) 30 MG capsuleIndications:At tention deficit hyperactivity disorder (ADHD), combined type Take 1 (one) capsule by mouth once daily 30 capsule 4 025 Discontinu ed(List Clean-Up) amphetamine-dextroamp hetamine (Adderall) 10 MG tabletIndications:Att ention deficit hyperactivity disorder (ADHD), combined type Take 1 (one) tablet by mouth once daily as needed 30 tablet 4 025 Discontinu ed(List Clean-Up) QUEtiapine (SEROquel) 50 MG tablet Take 1 (one) tablet by mouth at bedtime 90 tablet 1 4 025 Discontinu ed(Reorder ) amphetamine-dextroamp hetamine (Adderall) 10 MG tabletIndications:Att ention Deficit Hyperactivity Disorder Take 1 (one) tablet by mouth once daily as needed Reasons: Attention Deficit Hyperactivity Disorder 30 tablet 5 025 amphetamine-dextroamp hetamine XR 24hr (Adderall XR) 30 MG capsuleIndications:At tention Deficit Hyperactivity Disorder Take 1 (one) capsule by mouth once daily Reasons: Attention Deficit Hyperactivity Disorder 30 capsule 5 025 Discontinu ed(List Clean-Up) Active Problems Problem Noted Date Diagnosed Date PTSD (post-traumatic stress disorder) 08/29/2023 Hypothyroidism, acquired 10/13/2022 Antiphospholipid syndrome 05/11/2022 Bipolar 2 disorder 11/10/2021 Panic attack 11/10/2021 Normocytic anemia 11/10/2021 Other chronic pain 11/10/2021 Systemic lupus erythematosus with lung involvement, unspecified SLE type 09/16/2021 Nausea and vomiting 11/20/2020 Iron deficiency anemia during 10/21/19 21 Overview (11/07/2020): Venofer infusions planned Warm reactive antibody 09/25/2020 Overview (09/25/2020): Positive Ab screen for warm autoantibodies (WAA) - States that she has had a hx of blood transfusion w/ surgery - If WAAs are detected in a patient, the patient should be evaluated for RBC hemolysis. If there is hemolysis, the patient should be referred to a lead qa analyst for further care. If there is no hemolysis, the patient may be managed similar to a patient that does not have red cell antibodies. 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 Restrictive lung disease 08/09/2017 Overview (09/25/2020): Related to SLE, stable - Followed by gusset stitcher, next visit 12/02/20 PFTs 08/28 Interpretation: The flow volume loops and the [...] vascular disease can also decrease diffusion capacity. History of pulmonary embolism 08/09/2017 Overview (10/10/2017): 2013: related to ICU stay Anxiety 07/31/2017 care home current use of immunosuppressive drug 07/31/2017 SLE (systemic lupus erythematosus) 12/06/2012 Overview (09/25/2020): Diagnosed in 2007 (Positive SSA Ab. 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 Sees Rheumatology. Complicated by restrictive lung disease, antiphospho-lipid syndrome, gallbladder attacks and anemia. H/o necrotizing pancreatitis with hemorrhage and ICU admission with multiple abdominal surgeries including pancreatic necrosectomy in 2012. Echo 08/28: Left Ventricle: Left ventricle is normal in size. Normal global systolic left ventricular function. EF range is 60 % -65 %. Left ventricle wall thickness is normal. There are no regional wall motion abnormalities. Left ventricular diastolic function parameters are normal. Right Ventricle: Normal size right ventricle. Right ventricular systolic function is normal. Positive anticardiolipid IgM and B2GP1 A x 1. Repeat testing negative. Urine protein/creatinine spot 0.19; baseline CMP (Cr. 0.56, ALT/AST 40/58) echo 09/25 Serial growth US at 28wks testing at 32wks Delivery by 39wks unless indicated sooner Lovenox Resolved Problems Problem Noted Date Diagnosed Date Resolved Date Recurrent major depressive d isorder, in remission 09/05/2017 08/29/2023 Overview (09/25/2020): Mood stable On zoloft 100mg daily Referral to behavioral health sent, pt has not yet established care Immunizations Name Administration Dates Next Due INFLUENZA VACCINE, TRIV. (AF LURIA, FLUZONE TRIVALENT; 6MO+) (IIV3) 01/15/2013 CovAgentrun primary monoval ent 12+ yr 0.3mL Purple cap 09/09/2020,08/19/2020 DTP HIB, HISTORIC VACCINE 08/26/1993 FLU VACCINE TRI IIV3 SPLIT P F IM (FLUVIRIN) 05/10/2016 Human Papilloma Virus Ninevalent Vaccine 018 INFLUENZA VACCINE 04/13/2021 INFLUENZA VACCINE, CELL CULT URE, QUADR. (FLUCELVAX QUADRIVALENT; 6MO+) (CCIIV4) 11/22/2016 INFLUENZA VACCINE, QUADR. (F LUZONE; FLULAVAL; FLUARIX; AFLURIA QUADRIVALENT; 6MO+), 0.5 ML (IIV4) 01/16/2021,12/02/2017 MMR 12/09/2020,12/09/2020(),05/27/18 94 PNEUMOCOCCAL PCV20 CONJ VAC IM 11/10/2021 PNEUMOCOCCAL PPSV23 12/23/2012 POLIO OPV 05/27/1993 TDAP (7yrs+) 10/20/2020,08/23/2017 Social History Tobacco Use Types Packs/Day Years [...] Mass Index 32.31 01/01/2024 3:28 PM CDT Functional Status Functional Status Response Date of [...] person have difficulty concentrating/remembering/making decisions? 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 Office Visit [facility] - Internal Med [address] [place] [phone] 11/12/2024 10:20 AM CDT Office Visit [facility] - Internal Med [address] [place] [address], [place] [address] Aurea Lott, DO [address] [place] [address] OF [facility] [place] [address] Procedures Procedure Name Priority Date/Time Associated Diagnosis Comments HEPATITIS C AB W/RFLX TO HCV RNA QN PCR Routine 10/09/2020 Supervision of high risk in second trimester (HCC) HIV-1 HIV-2 ANTIBODY + HIV P24 AG PANEL Routine 10/09/2020 Supervision of high risk in second trimester (HCC) PAP IMAGE-GUIDED RFLX HPV+CT/NG+TRICH Routine 05/15/2020 3:11 PM SIDING INSTALLER Screening for cervical cancer Screen for STD (sexually transmitted disease) from Last 3 Months or Most Recently Relevant to Health Maintenance Results * HEPATITIS C AB W/RFLX TO HCV RNA QN PCR (10/09/2020) Hepatitis C Antibody NON-REACTI VE NON-REACT JAVAD [facility] Signal to Cut-Off 0.02 <1.00 [facility] Comment: HCV antibody was non-reactive. There is no laboratory evidence of HCV infection. In most cases, no further action is required. However, if recent HCV exposure is suspected, a test for HCV RNA (test code 68382) is suggested. For additional information please refer to http://Certeon.Trellise/faq/TPB35f5 (This link is being provided for informational/ educational purposes only.) REPORT COMMENT: FASTING:NO Test Performed at: [email or web address] [id number] [facility] [place] [address] ANDRE ARAUJO DO,MPH Blood BLOOD SPECIMEN / Unknown 10/09/2020 10/09/2020 2:07 PM CDT Isa Rutledge MD LAB - CHEMISTRY ORD ERABLES [facility] [address] [place] [address] * HIV-1 HIV-2 ANTIBODY + HIV P24 AG PANEL (10/09/2020) [facility] HIV Screen 4th Generation w Reflex NON-REACT [...] purpose. For additional information please refer to http://Certeon.Trellise/faq/XZI649 (This link is being provided for informational/ educational purposes only.) The performance of this assay has not been clinically validated in patients less than 2 years old. Test Performed at: [email or web address] [id number] [employer] [place] [address] ANDRE ARAUJO DO,MPH Blood BLOOD SPECIMEN / Unknown 10/09/2020 10/09/2020 2:07 PM CDT Isa Rutledge MD LAB - CHEMISTRY ORD ERABLES [facility] [address] [place] [address] * PAP IMAGE-GUIDED RFLX HPV+CT/NG+TRICH (05/15/2020 3:11 PM SIDING INSTALLER) Case Report Gynecologic Cytology Report Case: [id number] Authorizing Provider: Garrick Farley MD Collected: 05/15/2020 03:11 PM Ordering Location: [facility] Received: 05/18/2020 12:24 PM [facility] Screen: Guru Ellis Specimen: THINPREP - IMAGE GUIDED, Cervicovaginal 05/19/2020 3:44 PM SIDING INSTALLER [facility] LMP preg 05/19/2020 3:44 PM SIDING INSTALLER [facility] Menstrual Status 05/19/19 3:44 PM SIDING INSTALLER [facility] Comment:7w6d Specimen Adequacy Satisfactory for evaluation, endocervical/trans formation zone component present. 05/19/2020 3:44 PM SIDING INSTALLER [facility] Categorization Negative for intraepithelial lesion or malignancy. 05/19/2020 3:44 PM SIDING INSTALLER [facility] Interpretation UND[employer]WRITING INTERNSHIP Negative for intraepithelial lesion or malignancy. 05/19/2020 3:44 PM SIDING INSTALLER [facility] Other Predominance of Coccobacilli consistent with shift in vaginal nenita (vaginosis). Inflammation present. 05/19/2020 3:44 PM SIDING INSTALLER [facility] Pap Footnote The Pap Smear is a screening test. False positive and false negative results occur. Negative results do not preclude abnormalities, thus clinical correlation is required. This specimen was evaluated by the ThinPrep Imaging System along with an additional manual rescreening by a equipment detailer and/or pathologist. 05/19/2020 3:44 PM SIDING INSTALLER [facility] Embedded Images 3:44 PM SIDING INSTALLER [facility] Pathology/Cytolo gy VAGINA AND CERVIX, CS / Unknown 05/15/2020 3:11 PM SIDING INSTALLER 05/18/2020 12:24 PM SIDING INSTALLER Garrick Farley MD LAB - PATHOLOGY/CYTO LOGY ORDERABLES [facility] [address] [facility] [place] [address], [facility] [phone] from Last 3 Months or Most Recently Relevant to Health Maintenance Administered Medications Advance Directives * Full Code (Latest Code Status on File) Date Activated Date Inactivated Comments 12/05/2020 7:58 PM 12/09/2020 6:21 PM * Full Code Date Activated Date Inactivated Comments 11/13/2020 10:51 AM 11/13/2020 4:39 PM * Full Code Date Activated Date Inactivated Comments 11/09/2020 6:48 PM 11/10/2020 2:52 PM * Full Code Date Activated Date Inactivated Comments 07/09/2020 8:12 PM 07/10/2020 12:39 AM * Full Code Date Activated Date Inactivated Comments 09/29/2017 4:56 AM 10/02/2017 7:23 PM Care Teams Print Manager Relationship Specialty Start Date End Date Aurea Lott DO [address] [place] [address] PCP - General 10/14/21 Jim Moreland MD [address] [facility] [place] [address] Resident - PCP Internal Medicine 10/14/21
--- OUTSIDE RECORDS SUMMARY | 2024-06-12 17:16 | XMS_ITS | Clinical Summary ---
Author Organization [facility] Address [address] [place] [address] Care Team Providers Care Rn Urology Name Role Phone Aurea Lott DO Primary Care Provider [phone] Jim Moreland MD Unavailable [phone] Source Comments [facility],non-owned Affiliates and Associated Physician Practices is amultiple site organization consisting of ambulatory clinics and hospital sitesin [place], [place], [place] and [place]. This disclosure is being madepursuant to the Care Everywhere program and may not contain all information available regarding this patient. Last updated 17.[facility] Allergies Active Allergy Reactions Criticality Noted Date Comments Amoxicillin Urticaria Medium 04/01/2019 Sulfamethoxazole W-Trimethoprim BALL TRUING MACHINE OPERATOR Dysfunction 08/09/2017 mentql confusion Iron Vomiting 10/20/2020 Vomits oral iron Lamotrigine Itching 04/21/2022 Penicillins Urticaria,Unknown Medium 09/25/2020 Metoclopramide BALL TRUING MACHINE OPERATOR Dysfunction 08/09/2017 Paralysis Medications * Be aware [...] tabletIndications:Sys temic lupus erythematosus (SLE) in adult (HCC),[facility] current use of immunosuppressive drug,Therapeutic drug monitoring [...] the patient should be referred to a anesthesiology physician for further care. If there is no [...] risk of heart block with +SSA; undergoing TX interval surveillance Q2 weeks from 16 to 28 weeks (AHA recommendations). Restrictive lung disease 08/09/2017 Overview (09/25/2020): Related to SLE, stable - Followed by exercise equipment repair technician, next visit 12/02/20 PFTs 08/28 Interpretation: The [...] History of pulmonary embolism 08/09/2017 Overview (10/10/2017): 2012: related to ICU stay Anxiety 07/31/2017 [facility] current use of immunosuppressive drug 07/31/2017 SLE (systemic lupus erythematosus) 12/06/2012 Overview (09/25/2020): Diagnosed in 2007 (Positive SSA Ab. Dx based on cerebritis, pancreatitis, restrictive lung disease, with +JEAN-PAUL, dsDNA, Sm, CROWN ASSEMBLY MACHINE OPERATOR chromatin). Sees Rheumatology. Complicated by restrictive lung [...] sent, pt has not yet established care Encounters Date Type Department Care Team Description 06/11/2024 Travel 04/22/2024 Travel from Last 3 Months Immunizations Name Administration Dates Next Due INFLUENZA VACCINE, TRIV. (AF LURIA, FLUZONE TRIVALENT; 6MO+) (IIV3) 01/15/2013 CovSharelook primary monoval ent 12+ yr 0.3mL Purple [...] 12/23/2012 POLIO OPV 05/27/1993 TDAP (7yrs+) 10/20/2020,08/23/2017 Family History Medical History Relation Name Comments Anxiety Disorder Brother Depression Brother CAD (Coronary Artery Disease) Father CVA Father Depression Father Diabetes - Type 2 Father Sleep Disorder - Sleep apnea Father pap Bipolar Disorder Mother Cancer - Breast Mother survivor CAD (Coronary Artery Disease) Paternal Grandmother COPD - Chronic Obstructive Pulmonary Disease Paternal Grandmother Diabetes - Type 2 Paternal Grandmother Other - Pulmonary/Lung Paternal Grandmother emphysema None Known Sister Relation Name Status Comments Brother Alive Father Alive Mother Alive Paternal Grandmother Sister Alive Social History Tobacco Use Types Packs/Day Years [...] Mass Index 32.31 01/01/2024 3:28 PM CDT Plan of Treatment Upcoming Encounters Date Type Department Care Team (Late st Contact Info) Description 06/13/2024 8:30 AM HEAD OF TRAINING AND DEVELOPMENT Office Visit [facility] - Internal Med [address] [place] [address], [place] [address] 11/12/2024 10:20 AM CDT Office Visit [facility] - Internal Med [address] [place] [phone] Aurea Lott, DO [address] [place] [address] OF [facility] [place] [address] Health Maintenance Due Date Last Done Comments HEPATITIS B VACCINE (1 of 3 - 19+ 3-dose series) 2011 ZOSTER VACCINE (1 of 2) 2011 HPV VACCINE (2 - 3-dose series) 02/14/2018 01/17/2018 COVID-19 VACCINE (3 - Pfizer risk series) 10/07/2020 09/09/2020, 08/19/2020 INFLUENZA VACCINE (#1) 2023 , 01/16/2021, 12/02/2017, Additional history exists PAP SMEAR 03/31/2024 03/31/2021, 0 08/2020, 06/06/2017 DTAP/TDAP/TD VACCINES (4 - Td or Tdap) 10/20/2030 10/20/2020, 08/23/2017, 08/26/1993 HIB VACCINE Completed 08/26/1993 HEPATITIS C SCREENING Completed 10/09/2020 , 05/29/2017, 12/07/2012 HIV SCREENING Completed 10/09/2020, 0 08/2020, 07/12/2017, Additional history exists PNEUMOCOCCAL VACCINE Completed 11/10/2021, 12/24/19 13 MENINGOCOCCAL (Group B) VACCINE Aged Out No longer eligible based on patient's age to complete this topic MENINGOCOCCAL VACCINE Aged Out No sloan xena eligible based on patient's age to complete this topic Procedures Procedure Name Priority Date/Time Associated Diagnosis Comments HEPATITIS C AB W/RFLX TO HCV RNA QN PCR Routine 10/09/2020 Supervision of high risk in second trimester (HCC) HIV-1 HIV-2 ANTIBODY + HIV P24 AG PANEL Routine 10/09/2020 Supervision of high risk in second trimester (HCC) PAP IMAGE-GUIDED RFLX HPV+CT/NG+TRICH Routine 05/15/2020 3:11 PM HEAD OF TRAINING AND DEVELOPMENT Screening for cervical cancer Screen for STD (sexually transmitted disease) from Last 3 Months or Most Recently Relevant to Health Maintenance Results * HEPATITIS C AB W/RFLX TO HCV RNA QN PCR (10/09/2020) Hepatitis C Antibody NON-REACTI VE NON-REACT JAVAD [facility] [employer] [facility] Signal to Cut-Off 0.02 <1.00 [facility] Comment: HCV antibody was non-reactive. There is no laboratory evidence of HCV infection. In most cases, no further action is required. However, if recent HCV exposure is suspected, a test for HCV RNA (test code 13639) is suggested. For additional information please refer to http://education.Alignable.Reclog/faq/ZVS93p9 (This link is being provided for informational/ educational purposes only.) REPORT COMMENT: FASTING:NO Test Performed at: [facility] [address] [place] [address] ANDRE ARAUJO DO,MPH Blood BLOOD SPECIMEN / Unknown 10/09/2020 10/09/2020 2:07 PM CDT Isa Rutledge MD LAB - CHEMISTRY ORD ERABLES [employer] [facility] [address] [place] [address] * HIV-1 HIV-2 ANTIBODY + HIV P24 AG PANEL (10/09/2020) HIV Screen 4th Generation w Reflex NON-REACT [...] purpose. For additional information please refer to http://education.OneSpot/faq/QAP177 (This link is being provided for informational/ educational purposes only.) The performance of this assay has not been clinically validated in patients less than 2 years old. Test Performed at: [facility] [address] [place] [address] ANDRE ARAUJO DO,MPH Blood BLOOD SPECIMEN / Unknown 10/09/2020 10/09/2020 2:07 PM CDT Isa Rutledge MD LAB - CHEMISTRY ORD ERABLES [facility] [address] [place] [address] * PAP IMAGE-GUIDED RFLX HPV+CT/NG+TRICH (05/15/2020 3:11 PM HEAD OF TRAINING AND DEVELOPMENT) Pathologist [facility] Case Report Gynecologic Cytology Report Case: [id number] Authorizing Provider: Garrick Farley MD Collected: 05/15/2020 03:11 PM Ordering Location: [facility] Received: 05/18/2020 12:24 PM [facility] Screen: Guru Ellis Specimen: THINPREP - IMAGE GUIDED, Cervicovaginal 05/19/2020 3:44 PM HEAD OF TRAINING AND DEVELOPMENT [facility] LMP preg 05/19/2020 3:44 PM HEAD OF TRAINING AND DEVELOPMENT [facility] Menstrual Status 05/19/19 21 3:44 PM HEAD OF TRAINING AND DEVELOPMENT [facility] Comment:7w6d Specimen Adequacy Satisfactory for evaluation, endocervical/trans formation zone component present. 05/19/2020 3:44 PM HEAD OF TRAINING AND DEVELOPMENT [facility] Categorization Negative for intraepithelial lesion or malignancy. 05/19/2020 3:44 PM HEAD OF TRAINING AND DEVELOPMENT [facility] Interpretation CENTRIFUGAL SPINNER Negative for intraepithelial lesion or malignancy. 05/19/2020 3:44 PM HEAD OF TRAINING AND DEVELOPMENT [facility] Other Predominance of Coccobacilli consistent with shift in vaginal nenita (vaginosis). Inflammation present. 05/19/2020 3:44 PM HEAD OF TRAINING AND DEVELOPMENT [facility] Pap Footnote The Pap Smear is a screening test. False positive and false negative results occur. Negative results do not preclude abnormalities, thus clinical correlation is required. This specimen was evaluated by the ThinPrep Imaging System along with an additional manual rescreening by a die mechanic and/or pathologist. 05/19/2020 3:44 PM HEAD OF TRAINING AND DEVELOPMENT [facility] Embedded Images 3:44 PM [facility] Pathology/Cytolo gy VAGINA AND CERVIX, CS / Unknown 05/15/2020 3:11 PM HEAD OF TRAINING AND DEVELOPMENT 05/18/2020 12:24 PM HEAD OF TRAINING AND DEVELOPMENT Garrick Farley MD LAB - PATHOLOGY/CYTO LOGY ORDERABLES Performing Organization Address City/State/[facility] Co de Phone Number [facility] [address] [phone] from Last 3 Months or Most Recently Relevant to Health Maintenance Advance Directives * Full Code (Latest Code [...] 4:56 AM 10/02/2017 7:23 PM Care Teams Rn Urology Relationship Specialty Start Date End Date Aurea Lott DO [address] [place] [place] [address] PCP - General 10/14/21 Jim Moreland MD [address] [place] [phone] Resident - PCP Internal Medicine 10/14/21
--- OUTSIDE RECORDS SUMMARY | 2024-06-12 17:17 | XMS_ITS | Encounter Summary ---
Author Organization [facility] Health Address [address] [facility] [place] [address] Care Team Providers Care Community Director Name Role Phone Estephania Moise APRN-ASSISTED LIVING DIRECTOR Primary Care Provider Aurea Lott DO Primary Care Provider Jim Moreland MD Unavailable [phone] Reason for Visit * Reason Onset Date Comments Appointment 03/19/2018 Encounter Details Date Type Department Care Team (Late st Contact Info) Description 03/19/2018 Telephone [facility] [address] [facility] [address] [place] [address] Estephania Moise APRN-ASSISTED LIVING DIRECTOR [address] OF [facility] [place] [address] Appointment Social History Tobacco Use Types Packs/Day Years [...] encounter Miscellaneous Notes * Telephone Encounter - Zohreh Christensen - 03/21/2018 12:30 PM CST 3rd Attempt Called patient and left a message t contact the scheduling department [phone] ICATION TECHNICAL DESIGNER * Telephone Encounter - Zohreh Christensen - 03/20/2018 10:37 AM CST 2nd Attempt Called the patient and left a message to contact the scheduling department at [phone] ICATION TECHNICAL DESIGNER * Telephone Encounter - Zohreh Christensen - 03/19/2018 10:50 AM CST 1st attempt Called pt left message to contact scheduling department at [phone] ICATION TECHNICAL DESIGNER documented in this encounter Plan of Treatment Upcoming Encounters Date Type Department Care Team (Late st Contact Info) Description 06/13/2024 8:30 AM APPLICATION TECHNICAL DESIGNER Office Visit [facility] Med [address] [place] [phone] 11/12/2024 10:20 AM CDT Office Visit [facility] - Internal Med [address] [place] [phone] Aurea Lott, DO [address] [place] [address] OF [facility] [place] [address] documented as of this encounter Visit Diagnoses Not on filedocumented in this encounter Care Teams Community Director Relationship Specialty Start Date End Date Estephania Moise, RESEARCH SCIENTIST-ASSISTED LIVING DIRECTOR [address] [place] [address] PCP - General 08/15/17 10/13/21 Aurea Lott DO [address] [place] [phone] PCP - General 10/14/21 Jim Moreland MD [address] [place] [phone] Resident - PCP Internal Medicine 10/14/21 documented as of this encounter
--- OUTSIDE RECORDS SUMMARY | 2024-06-12 17:17 | XMS_ITS | Encounter Summary ---
Author Organization [facility] Health Address [address] [facility] [place] [address] Care Team Providers Care Senior Marketing Engineer Name Role Phone Estephania Moise APRN-ENTRY LEVEL ELECTRICAL ENGINEER Primary Care Provider Aurea Lott DO Primary Care Provider [phone] Jim Moreland MD Unavailable [phone] Reason for Visit * Reason Onset Date Comments Headache 08/06/2018 Encounter Details Date Type Department Care Team (Late st Contact Info) Description 08/06/2018 Telephone [facility] Internal Medicine [address] [facility] [address] [place] [address] Estephania Moise APRN-ENTRY LEVEL ELECTRICAL ENGINEER [address] OF GEN [place] [address] Headache Social History Tobacco Use Types Packs/Day Years [...] encounter Miscellaneous Notes * Telephone Encounter - Ramon Patrick - 08/06/2018 2:55 PM CDT Pt called and stated that she spoke with a triage nurse earlier today regarding her headaches and was told by that nurse to go to the ER. Pt stated that she can't do that because she has her kids, and is requesting that the provider give her something to get her through the night and maybe she can go to the ER tomorrow Pt verified her pharmacy during this call, and is requesting to be contacted at [phone] by theKenguruvider to further discuss this matter Message routed to the provider for further review and assistance documented in this encounter Plan of Treatment Upcoming Encounters Date Type Department Care Team (Late st Contact Info) Description 06/13/2024 8:30 AM MANUFACTURING DIRECTOR Office Visit [facility] - Internal Med [address] [place] [phone] 11/12/2024 10:20 AM CDT Office Visit [facility] - Internal Med [address] [place] [address], [place] [address] Aurea Lott, DO [address] [place] [address] [place] [address] documented as of this encounter Visit Diagnoses Not on filedocumented in this encounter Care Teams Senior Marketing Engineer Relationship Specialty Start Date End Date Estephania Moise, DIE SINKER-ENTRY LEVEL ELECTRICAL ENGINEER [address] [place] [address] PCP - General 08/15/17 10/13/21 Aurea Lott DO [address] [place] [address] PCP - General 10/14/21 Jim Moreland MD [address] [facility] [place] [phone] Resident - PCP Internal Medicine 10/14/21 documented as of this encounter
--- OUTSIDE RECORDS SUMMARY | 2024-06-12 17:17 | XMS_ITS | Encounter Summary ---
Author Organization [facility] Health Address [address] [facility] [place] [address] Care Team Providers Care Renal Dialysis Technician Name Role Phone Estephania Moise SUPERVISOR CORE SHOP-FISHING ROD TRIMMER Primary Care Provider Aurea Lott DO Primary Care Provider Jim Moreland MD Unavailable [phone] Encounter Details Date Type Department Care Team (Late st Contact Info) Description 12/17/2019 Telephone [facility] [address] [place] [address] Akosua Worley MD No info available Social History Tobacco Use Types Packs/Day Years Used Date Smoking Tobacco: Never Smokeless Tobacco: Never Alcohol Use Standard Drinks/Week Comments No 0 (1 standard drink = 0.6 oz pur e alcohol) VERY RARELY Sex and Gender Information Value Date Recorded [...] No 09/27/2017 documented as of this encounter Patient Instructions * Patient Instructions* Robson Philip - 12/17/2019 9:28 AM CDT Patient called to schedule an appointment with Dr. Varma. She has only seen him through residents in the [facility] office. She was originally scheduled with Dr. Worley for her next appointment, however the attending on that is Dr. Sol. She is wanting to stay with seeing Dr Varma, but I cannot find an appointment with him attending at this time. I informed the patient that we can call her back after we get some more information regarding her appointment request. Thanks for all you do! documented in this encounter Plan of Treatment Upcoming Encounters Date Type Department Care Team (Late st Contact Info) Description 06/13/2024 8:30 AM EXPLOSIVES ENGINEER Office Visit [facility] - Internal Med [address] [place] [phone] 11/12/2024 10:20 AM CDT Office Visit [facility] - Internal Med [address] [place] [phone] Aurea Lott DO [address] [facility] 2L DIV OF [facility] [place] [address] documented as of this encounter Visit Diagnoses Not on filedocumented in this encounter Care Teams Renal Dialysis Technician Relationship Specialty Start Date End Date Estephania Moise, SUPERVISOR CORE SHOP-FISHING ROD TRIMMER [address] [place] [address] PCP - General 08/15/17 10/13/21 Aurea Lott DO [address] [facility] 2L DIV OF [facility] [place] [address] PCP - General 10/14/21 Jim Moreland MD [address] [facility] [place] [phone] Resident - PCP Internal Medicine 10/14/21 documented as of this encounter
--- OUTSIDE RECORDS SUMMARY | 2024-06-12 17:17 | XMS_ITS | Encounter Summary ---
Author Organization [facility] Health Address [address] [facility] [place] [address] Care Team Providers Care Securities Analyst Name Role Phone Estephania Moise APRN-PREMIX OPERATOR CONCENTRATE Primary Care Provider Aurea Lott DO Primary Care Provider [phone] Jim Moreland MD Unavailable [phone] Reason for Visit * Reason Onset Date Comments Headache 08/08/2018 Encounter Details Date Type Department Care Team (Late st Contact Info) Description 08/08/2018 Nurse Triage [facility] General Internal Medicine [address] [facility] [address] [place] [address] Estephania Moise APRN-PREMIX OPERATOR CONCENTRATE [address] [facility] [address] [facility] [place] [address] Headache Social History Tobacco Use Types Packs/Day [...] encounter Miscellaneous Notes * Telephone Encounter - Reanna Almanza - 08/08/2018 3:11 PM CDT TN called pt d/t BitePalhart message received. Sample6hart message I???m in a lot of pain with this migraine going on four days now. Just moving causes it to hurt. Please do something. Pt stated her migraine was not better and 4 days ago hit herself in head w/ car door. Pt states shedid not have her head checked out since her head injury. Pt stated she had weakness in one leg on one side of body that usually is not present. Disposition to call 911. Pt refused. In addition, pt stated this was the worst headache of her life. TN reinforced the need for immediate medical attention and pt stated she was not wanting to call 911 or GO TO ED NOW b/c of work and after work she was unable to go to ED b/c of her child. TN offered pt to schedule ACS visit and pt agreed. Warm conference to schedulers. Upon conference, pt disconnected. Logging Contractor verbalized will reach back out to pt to try and reach to schedule ACS visit. Reason for Disposition ??? [1] Weakness of the face, arm or leg on one side of the body AND [2] new onset Protocols used: [id number] Called pt back and unable to reach. Left VM to CB office to sched for ACS visit and left CB# [phone] and closing statement. Appt sched w/ Estephania Gutierrez 08/15/18 @ 9:50am documented in this encounter Plan of Treatment Upcoming Encounters Date Type Department Care Team (Late st Contact Info) Description 06/13/2024 8:30 AM SEATER GRINDER Office Visit [facility] - Internal Med [address] [place] [address], [place] [address] 11/12/2024 10:20 AM CDT Office Visit [facility] - Internal Med [address] [place] [address], [place] [address] Aurea Lott DO [address] [facility] 2[address] DIV OF [facility] [place] [phone] documented as of this encounter Visit Diagnoses Not on filedocumented in this encounter Care Teams Securities Analyst Relationship Specialty Start Date End Date Estephania Moise, HEALTH DATA ANALYST-PREMIX OPERATOR CONCENTRATE [address] [place] [address] PCP - General 08/15/17 10/13/21 Auera Lott DO [address] [facility] 2L DIV OF [facility] [place] [address] PCP - General 10/14/21 Jim Moreland MD [address] [facility] [place] [address] Resident - PCP Internal Medicine 10/14/21 documented as of this encounter
--- OUTSIDE RECORDS SUMMARY | 2024-06-12 17:17 | XMS_ITS | Encounter Summary ---
Author Organization [facility] Health Address [address] [facility] [place] [address] Care Team Providers Care Build Technician Name Role Phone Aurea Lott DO Primary Care Provider [phone] Jim Moreland MD Unavailable [phone] Reason for Visit * Reason Onset Date Comments MEDICATION REFILL 12/20/2021 Encounter Details Date Type Department Care Team (Late st Contact Info) Description 12/20/2021 Refill [facility] [address] [place] [phone] Luanne Downs MD [address] [place], [place] [address] MEDICATION REFILL Social History Tobacco Use Types Packs/Day Years [...] PHQ-2 Answer Date Recorded PHQ2 TOTAL SCORE 2 12/01/2021 Sex and Gender Information Value Date Recorded [...] encounter Miscellaneous Notes * Telephone Encounter - Bucky Adam - 12/20/2021 9:50 AM CDT Refill Request Thalia Steele DARIO: 10/26/2021Feb scheduled: 01/17/2022 LRF: 10/26/2021 Qty Disp: 4 # of refills: 30 Refill Request Thalia Steele DARIO: 10/26/2021Feb scheduled: 01/17/2022 LRF: 10/26/2021 Qty Disp: 45 # of refills: 5 Allergies: Allergies Allergen Reactions ??? Amoxicillin Urticaria ??? Penicillins Urticaria and Unknown ??? Reglan [Metoclopramide] HUMAN DEVELOPMENT PROFESSOR Dysfunction Paralysis ??? Bactrim [Sulfamethoxazole W-Trimethoprim] HUMAN DEVELOPMENT PROFESSOR Dysfunction mentql confusion ??? Iron Vomiting Vomits oral iron Pended Medication Order: Requested Prescriptions Pending Prescriptions Disp Refills ??? azaTHIOprine (Imuran) 50 MG tablet 30 tablet 4 Sig: Take 1 (one) tablet by mouth once daily ??? hydroxychloroquine (Plaquenil) 200 MG tablet 45 tablet 5 Sig: Take 1.5 (one and one-half) tablets by mouth once daily Allergies: Allergies Allergen Reactions ??? Amoxicillin Urticaria ??? Penicillins Urticaria and Unknown ??? Reglan [Metoclopramide] HUMAN DEVELOPMENT PROFESSOR Dysfunction Paralysis ??? Bactrim [Sulfamethoxazole W-Trimethoprim] HUMAN DEVELOPMENT PROFESSOR Dysfunction mentql confusion ??? Iron Vomiting Vomits oral iron Pended Medication Order: Requested Prescriptions Pending Prescriptions Disp Refills ??? azaTHIOprine (Imuran) 50 MG tablet 30 tablet 4 Sig: Take 1 (one) tablet by mouth once daily ??? hydroxychloroquine (Plaquenil) 200 MG tablet 45 tablet 5 Sig: Take 1.5 (one and one-half) tablets by mouth once daily documented in this encounter Plan of Treatment Upcoming Encounters Date Type Department Care Team (Late st Contact Info) Description 06/13/2024 8:30 AM HOSPITAL RECEPTIONIST Office Visit [facility] - Internal Med [address] [place] [phone] 11/12/2024 10:20 AM CDT Office Visit [facility] Physician [facility] - Internal [address] [address] Aurea Lott DO [address] [facility] 2[address] DIV OF [facility] [place] [address] documented as of this encounter Visit Diagnoses Diagnosis Systemic lupus erythematosus (SLE) in adult (HCC) tank terminal gauger current use of immunosuppressive drug Therapeutic drug monitoring Encounter for therapeutic drug monitoring documented in this encounter Care Teams Build Technician Relationship Specialty Start Date End Date Aurea Lott DO [address] [facility] [address] [address] PCP - General 10/14/21 Jim Moreland MD [address] [place] [phone] Resident - PCP Internal Medicine 10/14/21 documented as of this encounter
--- OUTSIDE RECORDS SUMMARY | 2024-06-12 17:17 | XMS_ITS | Encounter Summary ---
Author Organization [facility] Health Address [address] [facility] [place] [address] Care Team Providers Care Timber Incisor Operator Name Role Phone Estephania Moise APRN-CHIEF OPERATOR SYNTHESIS Primary Care Provider Aurea Lott DO Primary Care Provider [phone] Jim Moreland MD Unavailable [phone] Reason for Visit * Reason Onset Date Comments MEDICATION REFILL 02/26/2018 Encounter Details Date Type Department Care Team (Late st Contact Info) Description 02/26/2018 Refill [facility] [address] [place] [address] Jana Saenz DO [address] [place] [address] MEDICATION REFILL Social History Tobacco Use Types [...] encounter Miscellaneous Notes * Telephone Encounter - Jana Saenz DO - 02/26/2018 12:18 PM CST HCQ refilled. Jana Saenz DO Rheumatology Fellow [facility] Pager: [phone] F RN documented in this encounter Plan of Treatment Upcoming Encounters Date Type Department Care Team (Late st Contact Info) Description 06/13/2024 8:30 AM STAFF RN Office Visit [facility]ician Group - Internal Med [address] [place] [phone] 11/12/2024 10:20 AM CDT Office Visit [facility] - Internal [address] [address] Aurea Lott DO [address] [place] [address] [place] [address] documented as of this encounter Visit Diagnoses Diagnosis Systemic lupus erythematosus (SLE) in adult (HCC) Anxiety Anxiety state, unspecified with one fetus in second trimester (HCC) pen[facility] current use of immunosuppressive drug Encounter for therapeutic drug monitoring documented in this encounter Care Teams Timber Incisor Operator Relationship Specialty Start Date End Date Estephania Moise APRN-CHIEF OPERATOR SYNTHESIS [address] [place] [address] PCP - General 08/15/17 10/13/21 Aurea Lott DO [facility] [facility] 2L DIV [place] [address] PCP - General 10/14/21 Jim Moreland MD [address] [facility] [place] [phone] Resident - PCP Internal Medicine 10/14/21 documented as of this encounter
--- OUTSIDE RECORDS SUMMARY | 2024-06-12 17:41 | XMS_ITS | Encounter Summary ---
Author Organization [facility] Health Address [address] [place] [address] Care Team Providers Care Radar Technician Name Role Phone Aurea Lott DO Primary Care Provider [phone] Jim Moreland MD Unavailable [phone] Encounter Details Date Type Department Care [...] st Contact Info) Description 06/13/2024 8:30 AM STOCK TAKER Office Visit [facility]ician Group - Internal Med [address] [place] [phone] 11/12/2024 10:20 AM CDT Office Visit [facility] - Internal Med [address] [place] [phone] Aurea Lott DO [address] [facility] [address] [place] [address] documented as of this encounter Visit Diagnoses Not on filedocumented in this encounter Care Teams Radar Technician Relationship Specialty Start Date End Date Aurea Lott DO [address] [facility] [address] [place] [address] PCP - General 10/14/21 Jim Moreland MD [address] [place] [address] Resident - PCP Internal Medicine 10/14/21 documented as of this encounter
--- OUTSIDE RECORDS SUMMARY | 2024-06-12 17:41 | XMS_ITS | Encounter Summary ---
Author Organization [facility] Health Address [address] [facility] [place] [address] Care Team Providers Care Svp Group Director Name Role Phone Aurea Lott DO Primary Care Provider [phone] Jim Moreland MD Unavailable [phone] Reason for Visit * Reason Onset Date Comments MEDICATION REFILL 12/20/2021 Encounter Details Date Type Department Care Team (Late st Contact Info) Description 12/20/2021 Refill [facility] [address] [place] [phone] Luanne Downs MD [address] [place], [place] [address] MEDICATION REFILL Social History Tobacco Use Types [...] Penicillins Urticaria and Unknown ??? Reglan [Metoclopramide] ENAMEL CRACKER Dysfunction Paralysis ??? Bactrim [Sulfamethoxazole W-Trimethoprim] ENAMEL CRACKER Dysfunction mentql confusion ??? Iron Vomiting Vomits [...] Penicillins Urticaria and Unknown ??? Reglan [Metoclopramide] ENAMEL CRACKER Dysfunction Paralysis ??? Bactrim [Sulfamethoxazole W-Trimethoprim] ENAMEL CRACKER Dysfunction mentql confusion ??? 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
--- OUTSIDE RECORDS SUMMARY | 2024-06-12 17:41 | XMS_ITS | Encounter Summary ---
Author Organization [facility] Health Address [address] [facility] [place] [address] Care Team Providers Care Psychologists Name Role Phone Aurea Lott DO Primary Care Provider Jim Moreland MD Unavailable [phone] Reason for Visit * Reason Onset Date Comments Question 10/18/2021 Encounter Details Date Type Department Care Team (Late st Contact Info) Description 10/18/2021 Telephone [facility] [address] [place] [address] Kimberly Balbuena MD [address] [place] [address] Question Social History Tobacco Use [...] just check on things. Please contact CB# [phone] documented in this encounter Plan of Treatment Upcoming Encounters Date Type Department Care Team (Late st Contact Info) Description 06/13/2024 8:30 AM RUBBER STAMP DIE INSPECTOR Office Visit [facility] Physician Group - Internal Med [address] [place] [address], [place] [address] 11/12/2024 10:20 AM CDT Office Visit [facility] - Internal Med [address] [place] [address], [place] [address] [place] [address] [place] [address] [address] OF [facility] [place] [address] documented as of this encounter Visit Diagnoses Not on filedocumented in this encounter Care Teams Psychologists Relationship Specialty [place] [address] [place] [address] [address] [place] [address] PCP - General 10/14/21 Jim Moreland MD [address] [facility] [place] [address] Resident - PCP Internal Medicine 10/14/21 documented as of this encounter
--- OUTSIDE RECORDS SUMMARY | 2024-06-12 17:43 | XMS_ITS | Patient Health Summary ---
Author Organization [facility] Address [address] [place] [address] Care Team Providers Care Perfume And Toilet Water Maker Name Role Phone Aurea Lott DO Primary Care Provider [phone] Jim Moreland MD Unavailable [phone] [facility],non-owned Affiliates and Associated Physician Practices is amultiple site organization consisting of ambulatory clinics and hospital sitesin [place], [place] and [place]. This disclosure is being madepursuant to the Care Everywhere program and may not contain all information available regarding this patient. Last updated 17.[facility] Allergies * Amoxicillin(Urticaria) -Medium Criticality * Sulfamethoxazole W-Trimethoprim([employer]UST[employer] PORT DIRECTOR Dysfunction) * Iron(Vomiting) * Lamotrigine(Itching) * Penicillins(Urticaria,Unknown) -Medium Criticality * Metoclopramide(CUST[employer]S PORT DIRECTOR Dysfunction) * Azathioprine(Urticaria) -Medium Criticality,Inactive Medications * [...] History of pulmonary embolism 08/09/2017 Anxiety 07/31/2017 assisted current use of immunosuppressive drug 07/31/2017 SLE [...] DROWSY ROUTINE(Performed 07/20/2022) Performed for Seizure disorder ([facility]) * MRI ANGIO BRAIN ARTERIAL WO CONT(Performed 07/20/2022) Performed for H/O head injury, Altered mental status, unspecified altered mental status type, Rightthalamic infarction ([facility]), Syncope, unspecified syncope type * SYPHILIS ANTIBODY [...] for Systemic lupus erythematosus (SLE) in adult ([facility]), emt intermediate current use of immunosuppressive drug * CBC W AUTO DIFFERENTIAL(Performed 05/11/2022) Performed for Systemic lupus erythematosus (SLE) in adult ([facility]), emt intermediate current use of immunosuppressive drug * ERYTHROCYTE SEDIMENTATION RATE(Performed 05/11/2022) Performed for Systemic lupus erythematosus (SLE) in adult ([facility]), assisted current use of immunosuppressive drug * C-REACTIVE PROTEIN(Performed 05/11/2022) Performed for Systemic lupus erythematosus (SLE) in adult ([facility]), assisted current use of immunosuppressive drug * COMPREHENSIVE METABOLIC PANEL(Performed 05/11/2022) Performed for Systemic lupus erythematosus (SLE) in adult ([facility]), assisted current use of immunosuppressive drug * CULTURE [...] Performed for Antiphospholipid syndrome complicating , antepartum ([facility]) * HCG URINE QUALITATIVE - POCT (IP) INTERFACED(Performed 02/01/2022) * HCG URINE QUAL POCT NOTIFICATION(Performed 02/01/2022) Performed for S/P IVC filter * PT-INR [facility](Performed 02/01/2022) Performed for Presence of IVC filter * CBC W AUTO DIFFERENTIAL(Performed 02/01/2022) Performed for Presence of IVC filter * BLOOD TYPE VERIFICATION(Performed 02/01/2022) * SIX MINUTE WALK(Performed 01/21/2022) Performed for Dyspnea on exertion, ILD (interstitial lung disease) ([facility]), Restrictive lung disease,Diffusion capacity of lung (dl), decreased * COMPLETE PFT W/WO BRONCHODILATOR(Performed 01/21/2022) Performed for Dyspnea on exertion, ILD (interstitial lung disease) ([facility]), Restrictive lung disease,Diffusion capacity of lung (dl), decreased * ECHO COMPLETE(Performed 01/21/2022) Performed for Dyspnea on exertion, ILD (interstitial lung disease) ([facility]), Restrictive lung disease,Diffusion capacity of lung (dl), decreased * ALDOLASE(Performed 01/17/2022) * DNA ANTIBODY DS CRITHIDIA W/REFLEX TITER(Performed 01/17/2022) * DNA ANTIBODY DOUBLE STRANDED(Performed 01/17/2022) * URINALYSIS W/MICROSCOPIC NO CULTURE(Performed 01/17/2022) * CK BLOOD(Performed 01/17/2022) * LDH BLOOD(Performed 01/17/2022) * CBC W AUTO DIFFERENTIAL(Performed 01/17/2022) Performed for Systemic lupus erythematosus (SLE) in adult ([facility]), assisted current use of immunosuppressive drug * ERYTHROCYTE SEDIMENTATION RATE(Performed 01/17/2022) Performed for Systemic lupus erythematosus (SLE) in adult ([facility]), assisted current use of immunosuppressive drug * C-REACTIVE PROTEIN(Performed 01/17/2022) Performed for Systemic lupus erythematosus (SLE) in adult ([facility]), assisted current use of immunosuppressive drug * COMPREHENSIVE METABOLIC PANEL(Performed 01/17/2022) Performed for Systemic lupus erythematosus (SLE) in adult ([facility]), emt intermediate current use of immunosuppressive drug * LDH BLOOD(Performed 11/16/2021) Performed for Systemic lupus erythematosus (SLE) in adult ([facility]), emt intermediate current use of immunosuppressive drug, Therapeutic drug monitoring * ALDOLASE(Performed 11/16/2021) Performed for Systemic lupus erythematosus (SLE) in adult ([facility]), assisted current use of immunosuppressive drug, Therapeutic drug monitoring * CK BLOOD(Performed 11/16/2021) Performed for Systemic lupus erythematosus (SLE) in adult ([facility]), emt intermediate current use of immunosuppressive drug, Therapeutic drug monitoring * URINALYSIS W/MICROSCOPIC NO CULTURE(Performed 11/16/2021) Performed for Systemic lupus erythematosus (SLE) in adult ([facility]), assisted current use of immunosuppressive drug, Therapeutic drug monitoring * ERYTHROCYTE SEDIMENTATION RATE(Performed 11/16/2021) Performed for Systemic lupus erythematosus (SLE) in adult ([facility]), emt intermediate current use of immunosuppressive drug, Therapeutic drug monitoring * C-REACTIVE PROTEIN(Performed 11/16/2021) Performed for Systemic lupus erythematosus (SLE) in adult ([facility]), assisted current use of immunosuppressive drug, Therapeutic drug monitoring * COMPREHENSIVE METABOLIC PANEL(Performed 11/16/2021) Performed for Systemic lupus erythematosus (SLE) in adult ([facility]), assisted current use of immunosuppressive drug, Therapeutic drug monitoring * CBC W AUTO DIFFERENTIAL(Performed 11/16/2021) Performed for Systemic lupus erythematosus (SLE) in adult ([facility]), emt intermediate current use of immunosuppressive drug, Therapeutic drug monitoring * DNA ANTIBODY DOUBLE STRANDED(Performed 11/16/2021) Performed for Systemic lupus erythematosus (SLE) in adult ([facility]), assisted current use of immunosuppressive drug, Therapeutic drug monitoring * PROTEIN CREATININE RATIO URINE RANDOM PNL(Performed 11/16/2021) Performed for Systemic lupus erythematosus (SLE) in adult ([facility]), emt intermediate current use of immunosuppressive drug, Therapeutic drug monitoring * COMPLEMENT C3(Performed 11/16/2021) Performed for Systemic lupus erythematosus (SLE) in adult ([facility]), assisted current use of immunosuppressive drug, Therapeutic drug monitoring * COMPLEMENT C4(Performed 11/16/2021) Performed for Systemic lupus erythematosus (SLE) in adult ([facility]), assisted current use of immunosuppressive drug, Therapeutic drug [...] REFLEX TO MICROSCOPIC NO CULTURE(Performed 10/13/2021) * IL SONO EXAM, TRANSVAGINAL(Performed 09/23/2021) Performed for Cyst of ovary, unspecified laterality * IMAGING/RADIOLOGY/XRAY RESULTS ORDER(Performed 09/23/2021) * ROGERS (SM) ANTIBODY KARTHIKEYAN(Performed 09/13/2021) * CHROMATIN ANTIBODY(Performed 09/13/2021) * DNA ANTIBODY DOUBLE STRANDED(Performed 09/13/2021) * JEAN-PAUL BLOOD TITER(Performed 09/13/2021) * ERYTHROCYTE SEDIMENTATION RATE(Performed 09/13/2021) Performed for Systemic lupus erythematosus (SLE) in adult ([facility]) * C-REACTIVE PROTEIN(Performed 09/13/2021) Performed for Systemic lupus erythematosus (SLE) in adult ([facility]) * COMPREHENSIVE METABOLIC PANEL(Performed 09/13/2021) Performed for Systemic lupus erythematosus (SLE) in adult ([facility]) * CK BLOOD(Performed 09/13/2021) Performed for Systemic lupus erythematosus (SLE) in adult ([facility]) * CBC W AUTO DIFFERENTIAL(Performed 09/13/2021) Performed for Systemic lupus erythematosus (SLE) in adult ([facility]) * ALDOLASE(Performed 09/13/2021) Performed for Systemic lupus erythematosus (SLE) in adult ([facility]) * IMMUNOGLOBULINS IGG/IGM/IGA PANEL(Performed 09/13/2021) Performed for Systemic lupus erythematosus (SLE) in adult ([facility]) * COMPLEMENT C4(Performed 09/13/2021) Performed for Systemic lupus erythematosus (SLE) in adult ([facility]) * COMPLEMENT C3(Performed 09/13/2021) Performed for Systemic lupus erythematosus (SLE) in adult ([facility]) * JEAN-PAUL SCREEN IFA+LUPUS PANEL(Performed 09/13/2021) Performed for Systemic lupus erythematosus (SLE) in adult ([facility]) * CARDIAC EKG ORDER(Performed 07/27/2021) * CT [...] for Systemic lupus erythematosus (SLE) in adult ([facility]), Restrictive lung disease, Systemiclupus complicating ([facility]), SSA antibodies, emt intermediate current use of immunosuppressive drug, High risk medications (not anticoagulants) long-term use, Therapeutic drug monitoring * PROTEIN ELECTROPHORESIS BLOOD(Performed 07/13/2021) Performed for Systemic lupus erythematosus (SLE) in adult ([facility]) * THIOPURINE METHYLTRANSFERASE(Performed 07/13/2021) Performed for Systemic lupus erythematosus (SLE) in adult ([facility]) * PROTEIN CREATININE RATIO URINE RANDOM PNL(Performed 07/13/2021) Performed for Systemic lupus erythematosus (SLE) in adult ([facility]) * DNA ANTIBODY DOUBLE STRANDED(Performed 07/13/2021) Performed for Systemic lupus erythematosus (SLE) in adult ([facility]) * IGA BLOOD(Performed 07/13/2021) Performed for Systemic lupus erythematosus (SLE) in adult ([facility]) * IGG BLOOD(Performed 07/13/2021) Performed for Systemic lupus erythematosus (SLE) in adult ([facility]) * IGM BLOOD(Performed 07/13/2021) Performed for Systemic lupus erythematosus (SLE) in adult ([facility]) * COMPLEMENT C3(Performed 07/13/2021) Performed for Systemic lupus erythematosus (SLE) in adult ([facility]) * COMPLEMENT C4(Performed 07/13/2021) Performed for Systemic lupus erythematosus (SLE) in adult ([facility]) * URINALYSIS W/MICROSCOPIC NO CULTURE(Performed 07/13/2021) Performed for Systemic lupus erythematosus (SLE) in adult ([facility]) * ERYTHROCYTE SEDIMENTATION RATE(Performed 07/13/2021) Performed for Systemic lupus erythematosus (SLE) in adult ([facility]) * C-REACTIVE PROTEIN(Performed 07/13/2021) Performed for Systemic lupus erythematosus (SLE) in adult ([facility]) * COMPREHENSIVE METABOLIC PANEL(Performed 07/13/2021) Performed for Systemic lupus erythematosus (SLE) in adult ([facility]) * CBC W AUTO DIFFERENTIAL(Performed 07/13/2021) Performed for Systemic lupus erythematosus (SLE) in adult ([facility]) * PTT(Performed 07/12/2021) * HEPATIC FUNCTION PANEL(Performed [...] for Supervision of high risk , antepartum ([facility]) * URINALYSIS REFLEX MICROSCOPIC REFLEX CULTURE(Performed 12/05/2020) Performed for Supervision of high risk , antepartum ([facility]) * CULTURE URINE(Performed 12/05/2020) Performed for Supervision of high risk , antepartum ([facility]) * TRICHOMONAS RAPID TEST(Performed 12/01/2020) Performed for Supervision of high risk in third trimester ([facility]) * CHLAMYDIA + GC AMPLIFIED PROBE(Performed 12/01/2020) Performed for Supervision of high risk in third trimester ([facility]) * CBC W/O DIFFERENTIAL(Performed 12/01/2020) Performed for Supervision of high risk in third trimester ([facility]) * URINE MICROSCOPIC ONLY REFLEX TO CULTURE(Performed 12/01/2020) Performed for Supervision of high risk in third trimester ([facility]) * URINALYSIS REFLEX MICROSCOPIC REFLEX CULTURE(Performed 12/01/2020) Performed for Supervision of high risk in third trimester ([facility]) * CULTURE URINE(Performed 12/01/2020) Performed for Supervision of high risk in third trimester ([facility]) * IL SONO FU OR REPEAT(Performed 12/01/2020) Performed for Supervision of high risk in third trimester ([facility]), Systemic lupus erythematosus (SLE) affecting , antepartum ([facility]), Maternal pulmonary embolus (PE), history of, Previous delivery, antepartum ([facility]) * IL BIOPHYSICAL PROFILE(Performed 12/01/2020) Performed for Supervision of high risk in third trimester ([facility]), Systemic lupus erythematosus (SLE) affecting , antepartum ([facility]), Maternal pulmonary embolus (PE), history of, Previous delivery, antepartum ([facility]) * IMAGING/RADIOLOGY/XRAY RESULTS ORDER(Performed 12/01/2020) * URINALYSIS - POINT OF CARE (AMB) [facility](Performed 11/27/2020) Performed for , unspecified gestational age ([facility]) * IL BIOPHYSICAL PROFILE(Performed 11/24/2020) Performed for Systemic lupus erythematosus affecting in third trimester ([facility]), Maternal pulmonary embolus (PE), history of, Supervision of high risk in third trimester ([facility]) * IL OB US, LIMITED, FETUS(S)(Performed 11/24/2020) Performed for Systemic lupus erythematosus affecting in third trimester ([facility]), Maternal pulmonary embolus (PE), history of, Supervision of high risk in third trimester ([facility]) * IMAGING/RADIOLOGY/XRAY RESULTS ORDER(Performed 11/24/2020) * NON-STRESS [...] GLUCOSE - POINT OF CARE(Performed 11/20/2020) * IL BIOPHYSICAL PROFILE(Performed 11/17/2020) Performed for Supervision of high risk in third trimester ([facility]), Systemic lupus erythematosus affecting in third trimester ([facility]), Maternal pulmonary embolus (PE), history of, History of delivery * IL OB US, LIMITED, FETUS(S)(Performed 11/17/2020) Performed for Supervision of high risk in third trimester ([facility]), Systemic lupus erythematosus affecting in third trimester ([facility]), Maternal pulmonary embolus (PE), history of, History of delivery * IMAGING/RADIOLOGY/XRAY RESULTS ORDER(Performed 11/17/2020) * NONSTRESS TEST(Performed 11/15/2020) * PROTEIN CREATININE RATIO URINE RANDOM PNL(Performed 11/15/2020) Performed for Supervision of high risk in third trimester ([facility]) * URINALYSIS REFLEX MICROSCOPIC REFLEX CULTURE(Performed 11/15/2020) Performed for Supervision of high risk in third trimester ([facility]) * CBC W AUTO DIFFERENTIAL(Performed 11/15/2020) Performed for Supervision of high risk in third trimester ([facility]) * COMPREHENSIVE METABOLIC PANEL(Performed 11/15/2020) Performed for Supervision of high risk in third trimester ([facility]) * NONSTRESS TEST(Performed 11/13/2020) Performed for Supervision of high risk in third trimester ([facility]) * URINALYSIS REFLEX MICROSCOPIC REFLEX CULTURE(Performed 11/13/2020) Performed for Supervision of high risk in third trimester ([facility]) * GLUCOSE PROTEIN KETONE URINE - POINT OF CAR(Performed 11/13/2020) * AIMEE DIRECT(Performed 11/09/2020) * ANTIBODY IDENTIFICATION(Performed 11/09/2020) * TYPE + SCREEN PANEL(Performed 11/09/2020) * DIFFERENTIAL MANUAL(Performed 11/09/2020) Performed for Supervision of high risk in third trimester ([facility]) * CBC W AUTO DIFFERENTIAL(Performed 11/09/2020) Performed for Supervision of high risk in third trimester ([facility]) * URINE MICROSCOPIC ONLY REFLEX TO CULTURE(Performed 11/09/2020) Performed for Supervision of high risk in third trimester ([facility]) * URINALYSIS REFLEX MICROSCOPIC REFLEX CULTURE(Performed 11/09/2020) Performed for Supervision of high risk in third trimester ([facility]) * CULTURE URINE(Performed 11/09/2020) Performed for Supervision of high risk in third trimester ([facility]) * NONSTRESS TEST(Performed 11/03/2020) * URINE MICROSCOPIC ONLY REFLEX TO CULTURE(Performed 11/03/2020) Performed for Anemia affecting in third trimester ([facility]) * URINALYSIS REFLEX MICROSCOPIC REFLEX CULTURE(Performed 11/03/2020) Performed for Anemia affecting in third trimester ([facility]) * CULTURE URINE(Performed 11/03/2020) Performed for Anemia affecting in third trimester ([facility]) * TRICHOMONAS RAPID TEST(Performed 11/03/2020) Performed for Anemia affecting in third trimester ([facility]) * CHLAMYDIA + GC AMPLIFIED PROBE(Performed 11/03/2020) Performed for Anemia affecting in third trimester ([facility]) * IL SONO FU OR REPEAT(Performed 11/03/2020) Performed for Systemic lupus erythematosus affecting in third trimester ([facility]), Supervision of high risk in third trimester ([facility]), Maternal pulmonary embolus (PE), history of * IL BIOPHYSICAL PROFILE(Performed 11/03/2020) Performed for Systemic lupus erythematosus affecting in third trimester ([facility]), Supervision of high risk in third trimester ([facility]), Maternal pulmonary embolus (PE), history of * IMAGING/RADIOLOGY/XRAY RESULTS ORDER(Performed 11/03/2020) * URINALYSIS - POINT OF CARE (AMB) [facility](Performed 11/03/2020) Performed for , unspecified gestational age ([facility]) * NONSTRESS TEST(Performed 10/30/2020) * PHOSPHORUS BLOOD(Performed 10/29/2020) Performed for Supervision of high risk in third trimester ([facility]) * MAGNESIUM BLOOD(Performed 10/29/2020) Performed for Supervision of high risk in third trimester ([facility]) * COMPREHENSIVE METABOLIC PANEL(Performed 10/29/2020) Performed for Supervision of high risk in third trimester ([facility]) * CBC W AUTO DIFFERENTIAL(Performed 10/29/2020) Performed for Supervision of high risk in third trimester ([facility]) * EKG 12-LEAD(Performed 10/29/2020) Performed for Chest pain, unspecified type * NONSTRESS TEST(Performed 10/24/2020) * URINE MICROSCOPIC ONLY REFLEX TO CULTURE(Performed 10/24/2020) Performed for Supervision of high risk in third trimester ([facility]) * URINALYSIS REFLEX MICROSCOPIC REFLEX CULTURE(Performed 10/24/2020) Performed for Supervision of high risk in third trimester ([facility]) * CULTURE URINE(Performed 10/24/2020) Performed for Supervision of high risk in third trimester ([facility]) * TRICHOMONAS RAPID TEST(Performed 10/24/2020) Performed for Supervision of high risk in third trimester ([facility]) * CHLAMYDIA + GC AMPLIFIED PROBE(Performed 10/24/2020) Performed for Supervision of high risk in third trimester ([facility]) * IRON + TIBC + FERRITIN(Performed 10/20/2020) Performed for 30 weeks gestation of ([facility]), Anemia during in third trimester ([facility]) * URINALYSIS - POINT OF CARE (AMB) [facility](Performed 10/20/2020) Performed for 30 weeks gestation of ([facility]) * IMAGING/RADIOLOGY/XRAY RESULTS ORDER(Performed 10/16/2020) * GLUCOSE PROTEIN KETONE URINE - POINT OF CAR(Performed 10/15/2020) * IL SONO FU OR REPEAT(Performed 10/09/2020) Performed for Supervision of high risk in third trimester ([facility]), History of delivery, Systemic lupus erythematosus (SLE) affecting , antepartum ([facility]), Encounter for ultrasound to assess growth ([facility]), Current maternal condition affecting ([facility]) * IMAGING/RADIOLOGY/XRAY RESULTS ORDER(Performed 10/09/2020) * HEPATITIS C AB W/RFLX TO HCV RNA QN PCR(Performed 10/09/2020) Performed for Supervision of high risk in second trimester ([facility]) * GLUCOSE CHALLENGE(Performed 10/09/2020) Performed for Supervision of high risk in second trimester ([facility]) * SYPHILIS ANTIBODY CASCADING REFLEX(Performed 10/09/2020) Performed for Supervision of high risk in second trimester ([facility]) * CBC W AUTO DIFFERENTIAL(Performed 10/09/2020) Performed for Supervision of high risk in second trimester ([facility]) * HIV-1 HIV-2 ANTIBODY + HIV P24 AG PANEL(Performed 10/09/2020) Performed for Supervision of high risk in second trimester ([facility]) * IL SONO HEART(Performed 09/25/2020) Performed for Systemic lupus erythematosus (SLE) affecting , antepartum ([facility]), Encounter for screening for congenital cardiac abnormalities ([facility]), Evaluate anatomy not seen on prior sonogram * IL DOPPLER ECHO PULSED WAVE &/CONT WAVE; CMPL(Performed 09/25/2020) Performed for Systemic lupus erythematosus (SLE) affecting , antepartum ([facility]), Encounter for screening for congenital cardiac abnormalities ([facility]), Evaluate anatomy not seen on prior sonogram * IL DOPPLER COLOR FLOW VELOCITY MAP(Performed 09/25/2020) Performed for Systemic lupus erythematosus (SLE) affecting , antepartum ([facility]), Encounter for screening for congenital cardiac abnormalities ([facility]), Evaluate anatomy not seen on prior sonogram * IL OB US, LIMITED, FETUS(S)(Performed 09/25/2020) Performed for Systemic lupus erythematosus (SLE) affecting , antepartum ([facility]), Encounter for screening for congenital cardiac abnormalities ([facility]), Evaluate anatomy not seen on prior sonogram * IMAGING/RADIOLOGY/XRAY RESULTS ORDER(Performed 09/25/2020) * URINALYSIS - POINT OF CARE (AMB) [facility](Performed 09/25/2020) Performed for Supervision of high risk in second trimester ([facility]) * IL SONO FU OR REPEAT(Performed 09/11/2020) Performed for History of maternal deep vein thrombosis (DVT), Systemic lupus erythematosus, unspecified SLE type, unspecified organ involvement status ([facility]), Systemic lupus erythematosus (SLE) affecting , antepartum ([facility]), Maternal pulmonary embolus (PE), history of, Evaluate anatomy not seen on prior sonogram * IL SONO HEART F/U(Performed 09/11/2020) Performed for History of maternal deep vein thrombosis (DVT), Systemic lupus erythematosus, unspecified SLE type, unspecified organ involvement status ([facility]), Systemic lupus erythematosus (SLE) affecting , antepartum ([facility]), Maternal pulmonary embolus (PE), history of, Evaluate anatomy not seen on prior sonogram * IMAGING/RADIOLOGY/XRAY RESULTS ORDER(Performed 09/11/2020) * IL DOPPLER ECHO PULSE WAVE&/CONT WAVE; REPEAT(Performed 08/28/2020) Performed for SS-A antibody positive, Systemic lupus erythematosus (SLE) affecting , antepartum (HCC), Maternal pulmonary embolus (PE), history of * IL OB US, LIMITED, FETUS(S)(Performed 08/28/2020) Performed for SS-A antibody positive, Systemic lupus erythematosus (SLE) affecting , antepartum (HCC), Maternal pulmonary embolus (PE), history of * IMAGING/RADIOLOGY/XRAY RESULTS ORDER(Performed 08/28/2020) * URINALYSIS - POINT OF CARE (AMB) [facility]U(Performed 08/28/2020) Performed for , unspecified gestational age ([facility]) * PFT-LAB(Performed 08/25/2020) Performed for Systemic lupus erythematosus, unspecified SLE type, unspecified organ involvement status ([facility]), Restrictive lung disease * ECHOCARDIOGRAM 2D WITH DOPPLER(Performed 08/25/2020) Performed for Systemic lupus erythematosus, unspecified SLE type, unspecified organ involvement status ([facility]) * URINALYSIS - POINT OF CARE (AMB) SLU(Performed 08/24/2020) Performed for , unspecified gestational age ([facility]) * CULTURE URINE(Performed 08/14/2020) Performed for Painful urination * SURESWAB VAGINOSIS/VAGINITIS PLUS(Performed 08/14/2020) Performed for Vaginal discharge * IL ULTRASND,PREG UTERUS,IMAGE DOC(Performed 08/14/2020) Performed for Systemic lupus erythematosus (SLE) affecting , antepartum (HCC), SS-A antibody positive, Maternal pulmonary embolus (PE), history of, High-risk , second trimester ([facility]), SLE (systemic lupus erythematosus related syndrome) ([facility]), Encounter for anatomic survey ([facility]) * IL DOPPLER ECHO PULSE WAVE&/CONT WAVE; REPEAT(Performed 08/14/2020) Performed for Systemic lupus erythematosus (SLE) affecting , antepartum (HCC), SS-A antibody positive, Maternal pulmonary embolus (PE), history of, High-risk , second trimester ([facility]), SLE (systemic lupus erythematosus related syndrome) ([facility]), Encounter for anatomic survey ([facility]) * IMAGING/RADIOLOGY/XRAY RESULTS ORDER(Performed 08/14/2020) * URINALYSIS - POINT OF CARE (AMB) SLU(Performed 08/14/2020) Performed for , unspecified gestational age ([facility]) * WET PREP - POINT OF CARE [...] for Long-term use of immunosuppressant medication * IL US NUCHAL TRANSLUCENCY 1ST GESTATION(Performed 06/12/2020) Performed [...] (HCC) * IMAGING/RADIOLOGY/XRAY RESULTS ORDER(Performed 05/20/2020) * IL ULTRASOUND, UTERUS(Performed 05/15/2020) Performed for ASCUS of cervix with negative high risk HPV, Systemic lupus erythematosus, unspecified SLE type, unspecified organ involvement status (HCC), History of maternal deep vein thrombosis (DVT), size consistent with dates during in first trimester ([facility]) * PAP IMAGE-GUIDED RFLX HPV+CT/NG+TRICH(Performed 05/15/2020) Performed [...] erythematosus with lung involvement, unspecified SLE type ([facility]) * ROGERS (SM)+WEATHERIZATION CREW LEADER ANTIBODY PANEL(Performed 05/15/2020) Performed for , unspecified [...] erythematosus with lung involvement, unspecified SLE type ([facility]) * COMPLEMENT C3 C4 PANEL(Performed 05/15/2020) Performed [...] with lung involvement, unspecified SLE type (HCC), assisted current use of immunosuppressive drug, SSA antibodies, Restrictive lung disease, Anxiety, Anti-phospholipid syndrome (HCC) * WEATHERIZATION CREW LEADER ANTIBODY(Performed 12/05/2017) Performed for Systemic lupus erythematosus with lung involvement, unspecified SLE type (HCC), emt intermediate current use of immunosuppressive drug, SSA antibodies, Restrictive lung disease, Anxiety, Anti-phospholipid syndrome (HCC) * ROGERS (SM) ANTIBODY KARTHIKEYAN(Performed 12/05/2017) Performed for Systemic lupus erythematosus with lung involvement, unspecified SLE type (HCC), emt intermediate current use of immunosuppressive drug, SSA antibodies, Restrictive lung disease, Anxiety, Anti-phospholipid syndrome (HCC) * SS-B (SJOGREN'S) ANTIBODY(Performed 12/05/2017) Performed for Systemic lupus erythematosus with lung involvement, unspecified SLE type (HCC), emt intermediate current use of immunosuppressive drug, SSA antibodies, Restrictive lung disease, Anxiety, Anti-phospholipid syndrome (HCC) * SS-A (SJOGREN'S) ANTIBODY(Performed 12/05/2017) Performed for Systemic lupus erythematosus with lung involvement, unspecified SLE type (HCC), emt intermediate current use of immunosuppressive drug, SSA antibodies, Restrictive lung disease, Anxiety, Anti-phospholipid syndrome (HCC) * JEAN-PAUL BLOOD SCREEN W/REFLEX TITER(Performed 12/05/2017) Performed for Systemic lupus erythematosus with lung involvement, unspecified SLE type (HCC), emt intermediate current use of immunosuppressive drug, SSA antibodies, [...] antibodies, Necrotizing pancreatitis (HCC),Antiphospholipid antibody positive * IL BIOPHYSICAL PROFILE(Performed 09/27/2017) Performed for Depression affecting (HCC), SSA antibodies, Necrotizing pancreatitis (HCC),Antiphospholipid antibody positive * URINALYSIS - POINT OF CARE (AMB) SLU(Performed 09/27/2017) Performed for Depression affecting (HCC) * US BIOPHYSICAL PROFILE W/ NST(Performed 09/21/2017) Performed for , unspecified gestational age (HCC), Systemic lupus erythematosus (SLE) in adult (HCC) * IL SONO FU OR REPEAT(Performed 09/21/2017) Performed for , unspecified gestational age (HCC), Systemic lupus erythematosus (SLE) in adult ([facility]) * CULTURE STREP B(Performed 09/20/2017) Performed for Screening, , for Streptococcus B ([facility]) * URINALYSIS - POINT OF CARE (AMB) SLU(Performed 09/20/2017) Performed for , unspecified gestational age (HCC), Systemic lupus erythematosus (SLE) in adult ([facility]) * MONITOR STRIP(Performed 09/15/2017) * MONITOR STRIP(Performed 09/15/2017) * IMAGING/RADIOLOGY/XRAY RESULTS ORDER(Performed 09/15/2017) * MONITOR STRIP(Performed 09/14/2017) * MONITOR STRIP(Performed 09/14/2017) * MONITOR STRIP(Performed 09/14/2017) * MONITOR STRIP(Performed 09/13/2017) * MONITOR STRIP(Performed 09/13/2017) * US BIOPHYSICAL PROFILE W/ NST(Performed 09/13/2017) Performed for , unspecified gestational age ([facility]), Systemic lupus erythematosus (SLE) in adult ([facility]) * IL OB US, LIMITED, FETUS(S)(Performed 09/13/2017) Performed for , unspecified gestational age (HCC), Systemic lupus erythematosus (SLE) in adult ([facility]) * US BIOPHYSICAL PROFILE W/ NST(Performed 09/12/2017) Performed for , unspecified gestational age (HCC), Systemic lupus erythematosus (SLE) in adult ([facility]) * US OB LIMITED(Performed 09/12/2017) Performed for , unspecified gestational age ([facility]), Systemic lupus erythematosus (SLE) in adult ([facility]) * MICROALBUMIN URINE RANDOM(Performed 09/05/2017) Performed for Systemic lupus erythematosus with other organ involvement, unspecified SLE type ([facility]), Systemic lupus complicating ([facility]) * US BIOPHYSICAL PROFILE W/ NST(Performed 09/05/2017) Performed for , unspecified gestational age ([facility]), Systemic lupus erythematosus (SLE) in adult ([facility]) * IL OB US, LIMITED, FETUS(S)(Performed 09/05/2017) Performed for , unspecified gestational age ([facility]), Systemic lupus erythematosus (SLE) in adult ([facility]) * DNA ANTIBODY DOUBLE STRANDED(Performed 09/05/2017) Performed [...] 09/05/2017) Performed for , unspecified gestational age ([facility]), Systemic lupus complicating ([facility]) * NON-STRESS TEST(Performed 09/01/2017) Performed for Systemic lupus erythematosus (SLE) in adult ([facility]) * MONITOR STRIP(Performed 08/28/2017) * US BIOPHYSICAL PROFILE W/ NST(Performed 08/28/2017) Performed for , unspecified gestational age (HCC), Systemic lupus erythematosus (SLE) in adult ([facility]) * MONITOR STRIP(Performed 08/24/2017) * IL SONO HEART F/U(Performed 08/23/2017) Performed for Systemic lupus complicating ([facility]) * IL SONO FU OR REPEAT(Performed 08/23/2017) Performed for Systemic lupus complicating ([facility]) * URINALYSIS - POINT OF CARE (AMB) SLU(Performed 08/23/2017) Performed for , unspecified gestational age (HCC), Systemic lupus erythematosus (SLE) in adult ([facility]) * CULTURE URINE(Performed 08/23/2017) Performed for Abnormal [...] Performed for Systemic lupus complicating (HCC) * IL OB US, LIMITED, FETUS(S)(Performed 07/17/2017) Performed for [...] OF CARE (AMB) SLU(Performed 06/06/2017) * FUNGUS MAIRON - POINT OF CARE (AMB) SLU(Performed 06/06/2017) [...] 03/31/2015) * SS-A (SJOGREN'S) ANTIBODY(Performed 03/31/2015) * WEATHERIZATION CREW LEADER ANTIBODY(Performed 03/31/2015) * SS-B (SJOGREN'S) ANTIBODY(Performed 03/31/2015) [...] * SCLERODERMA 70 (SCL) ANTIBODY(Performed 12/12/2012) * WEATHERIZATION CREW LEADER ANTIBODY(Performed 12/12/2012) * ROGERS (SM) ANTIBODY KARTHIKEYAN(Performed [...] 06/02/2011) Performed for SLE (systemic lupus erythematosus) ([facility]) * C-REACTIVE PROTEIN(Performed 06/02/2011) Performed for SLE (systemic lupus erythematosus) ([facility]) * COMPLEMENT C4(Performed 06/02/2011) Performed for SLE (systemic lupus erythematosus) ([facility]) * COMPLEMENT C3(Performed 06/02/2011) Performed for SLE (systemic lupus erythematosus) ([facility]) * COMPREHENSIVE METABOLIC PANEL(Performed 06/02/2011) Performed for SLE (systemic lupus erythematosus) ([facility]) * CBC W AUTO DIFFERENTIAL(Performed 06/02/2011) Performed for SLE (systemic lupus erythematosus) ([facility]) * DNA ANTIBODY DOUBLE STRANDED(Performed 06/02/2011) Performed for SLE (systemic lupus erythematosus) ([facility]) * RIBOSOMAL P PROTEIN ANTIBODY(Performed 06/02/2011) Performed for SLE (systemic lupus erythematosus) ([facility]) * URINALYSIS REFLEX MICROSCOPIC REFLEX CULTURE(Performed 06/02/2011) Performed for SLE (systemic lupus erythematosus) ([facility]) * CULTURE URINE(Performed 06/02/2011) * LAB RESULTS [...] C4(Performed 04/15/2010) * COMPLEMENT C3(Performed 04/15/2010) * WEATHERIZATION CREW LEADER ANTIBODY(Performed 04/15/2010) * DNA ANTIBODY DOUBLE STRANDED(Performed [...] * SCLERODERMA 70 (SCL) ANTIBODY(Performed 01/21/2010) * WEATHERIZATION CREW LEADER ANTIBODY(Performed 01/21/2010) * DNA ANTIBODY DOUBLE STRANDED(Performed [...] 06/22/2009) * SS-A (SJOGREN'S) ANTIBODY(Performed 06/22/2009) * WEATHERIZATION CREW LEADER ANTIBODY(Performed 06/22/2009) * SCLERODERMA 70 (SCL) ANTIBODY(Performed [...] JEAN-PAUL BLOOD SCREEN W/REFLEX TITER(Performed 06/21/2009) * MPO/IL 3 AUTOANTIBODIES PANEL(Performed 06/21/2009) * ERYTHROCYTE SEDIMENTATION [...] > Dictated by Tyra Mcguire MD (residential life director). I, Donte Acuña MD have personally reviewed and interpreted this examination/study. > Interpreting Provider: Donte Acuña MD on 11/02/2022 6:57 PM Narrative 11/02/2022 6:57 PM CDT EXAMINATION: CT CHEST WO CONT AND HIRES DATE/TIME OF EXAM: 11/02/2022 10:07 AM, LOCATION [facility] HISTORY: J84.9: ILD (interstitial lung disease) [...] DATE/TIME OF EXAM: 11/02/2022 10:07 AM, LOCATION [facility] HISTORY: J84.9: ILD (interstitial lung disease) [...] > Dictated by Tyra Mcguire MD (residential life director). I, Donte Acuña MD have personally reviewed and interpreted this examination/study. > Interpreting Provider: Donte Acuña MD on 11/02/2022 6:57 PM Michael Mariscal MD CT ORDERABLES * TSH (10/15/2022 7:16 AM CDT) TSH 1.80 mIU/L [facility] Comment: Reference Range > or = 20 Years 0.40-4.50 Ranges First trimester 0.26-2.66 Second trimester 0.55-2.73 Third trimester 0.43-2.91 REPORT COMMENT: AN UPDATE OR CORRECTION HAS BEEN MADE TO NAME Test Performed at: [facility] [address] [address] LUNA BARRAZA MD Blood BLOOD SPECIMEN / Unknown 10/15/2022 7:16 AM CDT 10/15/2022 7:16 AM CDT Yasmany Berg MD LAB - CHEMISTRY ORDJose G POPE [facility] Organization Address City/State/ZIP Co de Phone Number [facility] [address] [place] [address] * (ABNORMAL) T4 FREE (10/15/2022 7:16 AM CDT) Only the most recent of2 resultswithin the time period is included. T4 Free 0.5(L) 0.8 - 1.8 ng/dL [facility] Comment: Test Performed at: [facility] [place] [address] LUNA BARRAZA MD Blood BLOOD SPECIMEN / Unknown 10/15/2022 7:16 AM CDT 10/15/2022 7:16 AM CDT Yasmany Berg MD LAB - CHEMISTRY GRANADAJose G [facility] Performing Organization Address [facility] Co de Phone Number [facility] [phone] [place] [address] * C-REACTIVE PROTEIN (10/15/2022 7:13 AM CDT) Only the most recent of43 resultswithin the time period is included. [facility] C-Reactive Protein 0.5 <8.0 mg/L [facility] Comment: REPORT COMMENT: PATIENT UNABLE TO VOID; ADVISED TO RETURN FOR COLLECTION. Test Performed at: [place] [address] LUNA BARRAZA MD 10/15/2022 7:13 AM CDT 10/15/2022 7:14 AM CDT Bob Varma MD LAB - CHEMISTRY TOSHIA POPE Performing Organization Address [facility] Co de Phone Number [facility] [phone] [place] [id number] * (ABNORMAL) ERYTHROCYTE SEDIMENTATION RATE (10/15/2022 7:13 AM CDT) Only the most recent of40 resultswithin the time period is included. Pathologist [facility] Erythrocyte Sedimentation Rate Westergren 56(H) < OR = 20 mm/h [facility] Comment: Test Performed at: [facility] [place] [place] [address] LUNA BARRAZA MD 10/15/2022 7:13 AM CDT 10/15/2022 7:14 AM CDT Bob Varma MD LAB - HEMATOLOGY ORD [facility] Organization Address City/State/ZIP Co de Phone Number [facility] [address] [place] [address] * (ABNORMAL) CBC WITH DIFFERENTIAL (10/15/2022 7:13 [...] 0.3 % [facility] Comment: Test Performed at: [facility] [id number] [employer] [address] LUNA BARRAZA MD Blasts [facility] nRBC [facility] Comments [facility] Comment: Test Performed at: [place] [id number] [employer] [place] [address] LUNA BARRAZA MD 10/15/2022 7:13 AM CDT 10/15/2022 7:14 AM CDT Bob Varma MD LAB - HEMATOLOGY ORD NAVA Performing Organization Address [facility] Co de Phone Number [facility] [address] [place] [address] * COMPREHENSIVE METABOLIC PANEL (10/15/2022 7:13 AM [...] 29 U/L [facility] Comment: Test Performed at: [facility] [id number] [facility] [place] [address] LUNA BARRAZA MD 10/15/2022 7:13 AM CDT 10/15/2022 7:14 AM CDT Bob Varma MD LAB - CHEMISTRY TOSHIA POPE Performing Organization Address [facility]/ZIP Co de Phone Number [facility] [address] [place] [address] * CARDIAC EKG ORDER (10/13/2022 8:18 PM CDT) Only the most recent of3 resultswithin the time period is included. Narrative 10/13/2022 8:18 PM CDT Ordered by an unspecified provider. Scanned Document CARDIAC SERVICES ORD ERABLES * LIPASE BLOOD (10/12/2022 12:52 PM CDT) Only the most recent of59 resultswithin the time period is included. [facility] Lipase 25 8 - 78 U/L 10/12/2022 1:15 PM CDT [facility] Blood BLOOD SPECIMEN / Unknown Venipuncture / Unknown 10/12/2022 12:52 PM CDT 10/12/2022 12:55 PM CDT Mark Brown MD LAB - CHEMISTRY OR DERABLES Performing Organization Address [facility] Co de Phone Number [facility] [address] [facility] [place] [address] * HCG BLOOD QUALITATIVE (10/12/2022 12:52 PM CDT) [facility] HCG Qual Serum Negative Negative 10/12/2022 1:09 PM CDT [facility] Blood BLOOD SPECIMEN / Unknown Venipuncture / Unknown 10/12/2022 12:52 PM CDT 10/12/2022 12:55 PM CDT Narrative [facility] - 10/12/2022 1:09 PM CDT Specimens containing heterophilic antibodies may demonstrate false positive results. Specimens containing human anti-mouse antibodies may exhibit false positive or false negative results. If qualitative interpretation is inconsistant with clinical evaluation, consider confirmation by an alternative hCG method. Mark Brown MD LAB - CHEMISTRY OR DERABLES Performing Organization Address City/[facility]/ZIP Co de Phone Number [facility] [address] [place] [address] * TROPONIN I (10/12/2022 12:26 PM CDT) Only the most recent of7 resultswithin the time period is included. [facility] Troponin I <0.010 <0.038 ng/mL 10/12/2022 1:07 PM CDT [facility] Blood BLOOD SPECIMEN / Unknown Venipuncture / Unknown 10/12/2022 12:26 PM CDT 10/12/2022 12:43 PM CDT Mark Brown MD LAB - CHEMISTRY OR DERABLES Performing Organization Address City/[facility]/ZIP Co de Phone Number [facility] [address] [address] * EKG 12-LEAD (10/12/2022 9:40 AM CDT) Only the most recent of15 resultswithin the time period is included. Pathologist [facility] Ventricular Rate 103 BPM [facility]USE Atrial Rate 103 BPM [facility] P-R Interval 124 ms [facility] QRS Duration ms 82 ms [facility] Q-T Interval ms 346 ms [facility] QTC Calculation (Bezet) 453 ms [facility] Calculated P [place] 53 degrees [facility] MUSE Calculated R [place] 46 degrees [facility] MUSE Calculated T [place] 45 degrees [facility] MUSE Interpretation EKG Sinus tachycardia Cannot rule out Anterior infarct , age undetermined Abnormal ECG No previous ECGs available Confirmed by TRANG AVILEZ MD ([id number]) on 10/13/2022 5:29:27 PM [facility] 10/12/2022 9:40 AM CDT 10/13/2022 5:29 PM CDT Trang Painter MD ECG ORDERABLES Performing Organization Address City/[facility] Co de Phone Number [facility] * LAB RESULTS ORDER (07/22/2022) Only the most recent of5 resultswithin the time period is included. 07/22/2022 Narrative 07/22/2022 Ordered by an unspecified provider. Scanned Document LAB - THERAPEUTIC DR UG MONITORING ORDERABLES * EEG AWAKE OR DROWSY ROUTINE (07/20/2022 4:43 PM CDT) Narrative Luda Navarro MD - 07/20/2022 4:43 PM Luda Muniz MD 07/20/2022 4:52 PM Patient Name: [...] Navarro M.D. Professor of Neurology Fidel Puri APRN-GUIDE CHANGER NEUROLOGY ORDERA BLES * MRI ANGIO BRAIN [...] MD on 07/24/2022 8:12 AM Fidel Puri HARP ACTION ASSEMBLER-GUIDE CHANGER MR ORDERABLES * SYPHILIS ANTIBODY CASCADING REFLEX (05/16/2022 1:33 PM DOBIE WORKER) Only the most recent of3 resultswithin the time period is included. Treponema pallidum Antibody Non-react javad Non-react javad 05/16/2022 3:49 PM DOBIE WORKER [facility] Comment: No Laboratory evidence of syphilis infection. Note: Circulating antibodies may be low or undetectable in early infection. If recent exposure is suspected, re-draw sample in 2-4 weeks and repeat testing. Blood BLOOD SPECIMEN / Unknown Lab Venipuncture / Unknown 05/16/2022 1:33 PM DOBIE WORKER 05/16/2022 3:06 PM DOBIE WORKER Aurea Lott DO LAB - SEROLOGY ORDER HEATHER [address] [address], [facility] [phone] * (ABNORMAL) TSH REFLEX FREE T4 (05/16/2022 10:33 AM DOBIE WORKER) TSH 10.782(H) 0.350 - 4.940 uIU/mL 05/16/2022 12:03 PM DOBIE WORKER [facility] Blood BLOOD SPECIMEN / Unknown Lab Venipuncture / Unknown 05/16/2022 10:33 AM DOBIE WORKER 05/16/2022 11:05 AM DOBIE WORKER Fidel Puri APRN-GUIDE CHANGER LAB - CHEMISTRY ORDERABLES [facility] [address] [place] [address], [facility] [phone] * (ABNORMAL) THYROID AB PANEL (TPO AB+THYROGLOB AB) (05/16/2022 10:33 AM DOBIE WORKER) Thyroid Peroxidase TPO Antibody 24 0 - 34 IU/mL 05/19/2022 2:11 PM DOBIE WORKER [facility] ([facility]) Thyroglobulin Antibody 2.2(H) 0.0 - 0.9 IU/mL 05/19/2022 2:11 PM DOBIE WORKER [facility] ([facility]) Comment:Thyroglobulin Antibo dy measured by [facility] [place] [facility] Blood BLOOD SPECIMEN / Unknown Lab Venipuncture / Unknown 05/16/2022 10:33 AM DOBIE WORKER 05/16/2022 10:55 AM DOBIE WORKER Narrative [facility] ([facility]) - 05/19/2022 2:11 PM DOBIE WORKER Performed at: [address] [place] [address] [id number] Digital Asset Coordinator: Get Oglesby PhD, Phone: [phone] Fidel Puri [facility] LAB - CHEMISTRY ORDERABLES Performing Organization Address City/[facility]/ZIP Co de Phone Number [facility] ([facility]) [address] [place] [address], [facility] * HOMOCYSTEINE BLOOD QUANTITATIVE (05/16/2022 10:33 AM DOBIE WORKER) [facility] Homocysteine 10.4 4.4 - 16.2 umol/L 05/16/2022 11:55 AM DOBIE WORKER [facility] Blood BLOOD SPECIMEN / Unknown Lab Venipuncture / Unknown 05/16/2022 10:33 AM DOBIE WORKER 05/16/2022 11:05 AM DOBIE WORKER Fidel Oconnoramisha [facility] LAB - CHEMISTRY ORDERABLES Performing Organization Address City/[facility]/ZIP Co de Phone Number [facility] [address] [place] [address], [facility] [phone] * (ABNORMAL) IRON + TIBC + FERRITIN (05/11/2022 11:49 AM DOBIE WORKER) Only the most recent of2 resultswithin the time period is included. Iron 33(L) 40 - 190 mcg/dL [facility] TIBC 469(H) 250 - 450 mcg/dL (calc) [facility] % Saturation 7(L) 16 - 45 % (calc) [facility] Ferritin 8(L) 16 - 154 ng/mL [facility] Comment: Test Performed at: [facility] [place] [address] [place] [address] LUNA BARRAZA MD Blood BLOOD SPECIMEN / Unknown 05/11/2022 11:49 AM DOBIE WORKER 05/11/2022 11:52 AM DOBIE WORKER [facility] - EMISTRY ORDERABLES Performing Organization Address [facility] de Phone Number [address] [address] * METHYLMALONIC ACID BLOOD (05/11/2022 11:49 AM DOBIE WORKER) Pathologist [facility] Methylmalonic Acid 152 87 - 318 nmol/L [facility] Comment: This test was developed and its analytical performance characteristics have been determined by [facility] [place], [place]. It has not been cleared or approved by the U.S. Food and Drug Administration. This assay has been validated pursuant to the CLIA regulations and is used for clinical purposes. Test Performed at: [facility] [address] [place], [place] PARAS LOPEZ MD,PHD Blood BLOOD SPECIMEN / Unknown 05/11/2022 11:49 AM DOBIE WORKER 05/11/2022 11:52 AM DOBIE WORKER [facility] LAB - CH EMISTRY ORDERABLES Performing Organization Address [facility] Co de Phone Number [address] [address] * (ABNORMAL) VITAMIN D 25-HYDROXY (05/11/2022 11:49 AM DOBIE WORKER) Only the most recent of3 resultswithin the time period is included. Pathologist [facility] Vitamin D, 25 Hydroxy 14(L) 30 - 100 ng/mL [facility] Comment: Vitamin D Status 25-OH Vitamin D: Deficiency: <20 ng/mL Insufficiency: 20 - 29 ng/mL Optimal: > or = 30 ng/mL For 25-OH Vitamin D testing on patients on D2-supplementation and patients for whom quantitation of D2 and D3 fractions is required, the QuestAssureD(TM) 25-OH VIT D, (D2,D3), LC/MS/MS is recommended: order code 28805 (patients >2yrs). See Note 1 Note 1 For additional information, please refer to [email or web address] (This link is being provided for informational/ educational purposes only.) REPORT COMMENT: FASTING:NO Test Performed at: [place] [address] LUNA BARRAZA MD Blood BLOOD SPECIMEN / Unknown 05/11/2022 11:49 AM DOBIE WORKER 05/11/2022 11:52 AM DOBIE WORKER Nancy A RupertSnapsortdcleon [facility] - CH EMISTRY ORDERABLES Performing Organization Address [facility] Co de Phone Number [facility] [address] [place] [address] * FOLATE (05/11/2022 11:49 AM DOBIE WORKER) Pathologist [facility] Folate 8.3 ng/mL [facility] Comment: Reference Range Low: <3.4 Borderline: 3.4-5.4 Normal: >5.4 Test Performed at: [place] [facility] [place] [address] LUNA BARRAZA MD Blood BLOOD SPECIMEN / Unknown 05/11/2022 11:49 AM DOBIE WORKER 05/11/2022 11:52 AM DOBIE WORKER Nancy A SafeTacMagtenC[facility]Zero[facility] LAB - CH EMISTRY ORDERABLES Performing Organization Address [facility] Co de Phone Number [facility] [address] [place] [address] * VITAMIN B12 (05/11/2022 11:49 AM DOBIE WORKER) Pathologist [facility] Vitamin B12 274 200 - 1100 pg/mL [...] pg/mL will have symptoms. Test Performed at: [facility] [address] [address] [place] [address] LUNA BARRAZA MD Blood BLOOD SPECIMEN / Unknown 05/11/2022 11:49 AM DOBIE WORKER 05/11/2022 11:52 AM DOBIE WORKER Nancy [facility] LAB - CH EMISTRY ORDERABLES Performing Organization Address [facility] de Phone Number [address] [address] * CULTURE URINE REFLEXED II (05/11/2022 11:42 AM DOBIE WORKER) [facility] Reflexive Urine Culture See Below [facility] Comment: CULTURE INDICATED - RESULTS TO FOLLOW Test Performed at: [facility])[address] [address] LUNA BARRAZA MD 05/11/2022 11:4 2 AM DOBIE WORKER 05/11/2022 11:45 AM DOBIE WORKER Bob Varma MD LAB - MICROBIOLOGY O RDERABLES Performing Organization Address [facility] Co de Phone Number [address] [address] * (ABNORMAL) URINALYSIS W/MICROSCOPIC REFLEX TO CULTURE (05/11/2022 11:42 AM DOBIE WORKER) Only the most recent of13 resultswithin the time period is included. Pathologist [facility] Color UA YELLOW YELLOW [facility] Appearance CLEAR CLEAR [facility] Specific [place] UA 1.011 1.001 - 1.035 [facility] pH [...] SEEN /LPF [facility] Comment: Test Performed at: [address] [address] LUNA BARRAZA MD Urine URINE SPECIMEN OBTAINED BY CLEAN CATCH PROCEDURE / Unknown 05/11/2022 11:42 AM DOBIE WORKER 05/11/2022 11:45 AM DOBIE WORKER Bob Varma MD LAB - URINALYSIS ORD ERABLES Performing Organization Address [facility] Co de Phone Number [address] [address] * CULTURE URINE (05/11/2022 11:42 AM DOBIE WORKER) Only the most recent of27 resultswithin the time period is included. Culture [facility] Comment: CULTURE, URINE, ROUTINE Micro Number: [id number] Test Status: Final Specimen Source: Urine Specimen Quality: Adequate Result: No Growth REPORT COMMENT: FASTING:NO Test Performed at: [address] [address] LUNA BARRAZA MD 05/11/2022 11:4 2 AM DOBIE WORKER 05/11/2022 11:45 AM DOBIE WORKER Bob Varma MD LAB - MICROBIOLOGY O RDERABLES Performing Organization Address City/[facility]/ZIP Co de Phone Number [address] [address] * (ABNORMAL) URINALYSIS W/MICROSCOPIC NO CULTURE (04/22/2022 10:19 AM DOBIE WORKER) Only the most recent of21 resultswithin the time period is included. Color UA Arline(A) Straw, Yellow 04/22/2022 10:45 AM [facility] Clarity UA Slt Cloudy(A) Clear 04/22/2022 10:45 AM DOBIE WORKER [facility] Specific [place] UA 1.025 1.005 - 1.030 04/22/2022 10:45 AM [facility] pH UA 5.0 5.0 - 8.0 pH 04/22/2022 10:45 AM [facility] Protein UA 2+(A) Negative 04/22/2022 10:45 AM [facility] Glucose UA Negative Negative 04/22/2022 10:45 AM [facility] Ketone UA Negative Negative 04/22/2022 10:45 AM [facility] Bilirubin UA Negative Negative 04/22/2022 10:45 AM [facility] Blood UA Negative Negative 04/22/2022 10:45 AM [facility] Nitrite UA Negative Negative 04/22/2022 10:45 AM [facility] Leukocyte Esterase Negative Negative 04/22/2022 10:45 AM [facility] Urobilinogen UA Negative Negative mg/dL 04/22/2022 10:45 AM [facility] RBC UA 11-20(A) None Seen, 0-2, 3-5 /HPF 04/22/2022 10:45 AM [facility] WBC UA 11-20(A) None Seen, 0-5 /HPF 04/22/2022 10:45 AM [facility] Bacteria UA Trace(A) None /HPF 04/22/2022 10:45 AM [facility] Squamous Epithelial Cells UA 0-2 None Seen, 0-2, 3-5 /HPF 04/22/2022 10:45 AM [facility] Mucus UA 3+ /LPF 04/22/2022 10:45 AM [facility] Urine URINE SPECIMEN OBTAINED BY SINGLE CATHETERIZATION OF URINARY BLADDER / Unknown Collection / Unknown 04/22/2022 10:19 AM DOBIE WORKER 04/22/2022 10:28 AM [facility] - 04/22/2022 10:45 AM [facility] Antonina Perales PA-C LAB - URINALYSIS OR DERABLES [facility] [address] [place] [address], [facility] [phone] * (ABNORMAL) BASIC METABOLIC PANEL (CALCIUM TOTAL) (04/22/2022 10:03 AM DOBIE WORKER) Only the most recent of46 resultswithin the time period is included. BUN 12 7 - 26 mg/dL 04/22/2022 10:49 AM [facility] Creatinine 0.69 0.56 - 0.96 mg/dL 04/22/2022 10:49 AM [facility] Sodium 133(L) 136 - 145 mmol/L 04/22/2022 10:49 AM [facility] Potassium 3.4(L) 3.5 - 4.5 mmol/L 04/22/2022 10:49 AM [facility] Chloride 103 98 - 107 mmol/L 04/22/2022 10:49 AM [facility] CO2 17(L) 22 - 29 mmol/L 04/22/2022 10:49 AM [facility] Glucose 97 70 - 115 mg/dL 04/22/2022 10:49 AM [facility] Calcium 8.7 8.4 - 10.2 mg/dL 04/22/2022 10:49 AM [facility] Anion Gap 16 8 - 18 04/22/2022 10:49 AM [facility] BUN/Creatinine Ratio 17 7 - 23 04/22/2022 10:49 AM [facility] Osmolality Calculated 276 270 - 300 mOsm/kg 04/22/2022 10:49 AM [facility] eGFR by CKD-EPI >90 >=90 mL/min/1.7 3 m2 04/22/2022 10:49 AM [facility] Blood BLOOD SPECIMEN / Unknown Venipuncture / Unknown 04/22/2022 10:03 AM DOBIE WORKER 04/22/2022 10:19 AM DOBIE WORKER Antonina Perales PA-C LAB - CHEMISTRY ORD ERABLES [facility] [address] [place] [address], [facility] [phone] * CT RENAL STONE (04/19/2022 2:04 PM DOBIE WORKER) Anatomical Region Laterality Modality Abdomen Computed Tomogra phy 04/19/2022 2:17 PM DOBIE WORKER Impressions 04/19/2022 4:30 PM DOBIE WORKER Impression: 1.5 mm nonobstructing renal stone in the right kidney lower pole. No hydronephrosis or hydroureter. 2.No acute abnormality in the abdomen or pelvis. 3.Multiple bilateral subcentimeter hyperattenuating renal lesions likely represent high density cysts. 4.Mild splenomegaly. > Dictated by Tyra Mcguire MD (residential life director). I, Vishnu Roque MD have personally reviewed and interpreted this examination/study. > Interpreting Provider: Vishnu Roque MD on 04/19/2022 4:30 PM Narrative 04/19/2022 4:30 PM DOBIE WORKER EXAMINATION: CT RENAL STONE DATE/TIME OF EXAM: 04/19/2022 2:07 PM, LOCATION [facility] HISTORY: R10.9: Right flank pain, 31-year-old [...] DATE/TIME OF EXAM: 04/19/2022 2:07 PM, LOCATION [facility] HISTORY: R10.9: Right flank pain, 31-year-old [...] > Dictated by Tyra Mcguire MD (residential life director). I, Vishnu Roque MD have personally reviewed and interpreted this examination/study. > Interpreting Provider: Vishnu Roque MD on 34:30 PM Magdaleno Beltrán PA-C CT ORDERAB LES * HCG BETA BLOOD QUANTITATIVE (04/19/2022 11:47 AM DOBIE WORKER) Only the most recent of2 resultswithin the time period is included. Beta-hCG Total Quantitative <3 mIU/mL 04/19/2022 12:31 PM DOBIE WORKER [facility] Comment: This assay is cleared [...] Unknown Venipuncture / Unknown 04/19/2022 11:47 AM DOBIE WORKER 04/19/2022 11:52 AM DOBIE WORKER Magdaleno Beltrán PA-C LAB - CHEM ISTRY ORDERABLES [facility] [address] [place] [address], [facility] [phone] * IR IVC FILTER REMOVAL (02/01/2022 2:53 PM CDT) Anatomical Region Laterality Modality Abdomen, Pelvis X-Ray Angiograph y 02/01/2022 2:58 PM CDT Impressions 02/04/2022 3:27 PM CDT Impression: Removal of a retrievable infrarenal Bard Halley IVC filter under fluoroscopic guidance, as described above. I, Dr. Herrera, was present and performed/supervised the entire procedure. > Dictated by Dr. Eddie Meadows, IR resident. I, Eddie Herrrea MD have personally reviewed and interpreted this [...] 2.Inferior venacavogram. 3.Retrieval of an infrarenal Bard Catron inferior vena cava filter under fluoroscopic guidance. 4.Post-retrieval inferior venacavogram. Fluoroscopic time: 8.2 minutes Contrast: 20 mL of Isovue 300 Procedure in detail: The procedure, risks, and possible complications were explained to the patient in detail, and informed consent was obtained. The patient was placed supine on the angiographic table. The right neck was prepped and draped in the usual sterile manner. A nurse anesthetist film of the abdomen was obtained, which [...] Following a series of exchanges, an 16 Bermudian vascular sheath was placed and advanced into [...] to capture the filter within the 16 Bermudian vascular sheath, which were unsuccessful. Next a 14 Bermudian laser sheath was advanced over a wire into the IVC through the 16 Bermudian parent sheath. The wire was exchanged for the 10 mm gooseneck snare. The filter hook was again snared and the 14 Bermudian laser sheath was advanced over the filter, [...] 2.Inferior venacavogram. 3.Retrieval of an infrarenal Bard Catron inferior vena cava filter under fluoroscopic guidance. 4.Post-retrieval inferior venacavogram. Fluoroscopic time: 8.2 minutes Contrast: 20 mL of Isovue 300 Procedure in detail: The procedure, risks, and possible complications were explained to the patient in detail, and informed consent was obtained. The patient was placed supine on the angiographic table. The right neck was prepped and draped in the usual sterile manner. A nurse anesthetist film of the abdomen was obtained, which [...] Following a series of exchanges, an 16 Bermudian vascular sheath was placed and advanced into [...] to capture the filter within the 16 Bermudian vascular sheath, which were unsuccessful. Next a 14 Bermudian laser sheath was advanced over a wire into the IVCthrough the 16 Bermudian parent sheath. The wire was exchanged for the 10 mmgooseneck snare. The filter hook was again snared and the 14 Bermudian laser sheathwas advanced over the filter, successfully [...] the procedure well [facility]. There were no immediate complicationsassociated with the procedure. Impression: Removal of a retrievable infrarenal Bard Catron IVC filter under fluoroscopic guidance, as described [...] Event Date/Time: 02/01/2022 1:39 PM Procedure: intubation (06323). Procedure Section: Sedation: under general anesthesia. Indications [...] Rh A POS 02/01/2022 12:25 PM CDT [facility] Blood Bank BLOOD SPECIMEN / Unknown Venipuncture / Unknown 02/01/2022 11:52 AM CDT 02/01/2022 11:56 AM CDT Fannie Jiang MD LAB - BLOOD BANK ORD ERABLES [facility] [address] [place] [address], [facility] [phone] * (ABNORMAL) HCG URINE QUALITATIVE - POCT (IP) INTERFACED (02/01/2022 10:48 AM CDT) Only the most recent of2 resultswithin the time period is included. HCG Qual Urine Positive(A ) Negative 02/01/2022 2:19 PM CDT [facility] Urine URINE / Unknown 02/01/2022 1 0:48 AM CDT 02/01/2022 2:19 PM CDT Eddie Herrera MD LAB - POINT OF CARE ORDERABLES [facility] [address] [place] [address], [facility] [phone] * TYPE + SCREEN PANEL (02/01/2022 10:22 AM CDT) Only the most recent of9 resultswithin the time period is included. Antibody Screen NEG 11:21 AM CDT [facility] ABO Rh A POS 02/01/2022 11:21 AM CDT [facility] Blood Bank BLOOD SPECIMEN / Unknown Venipuncture / Unknown 02/01/2022 10:22 AM CDT 02/01/2022 10:31 AM CDT Provider Unknown LAB - BLOOD BANK ORD ERABLES [facility] [address] [place] [address], [facility] [phone] * HCG URINE QUAL POCT NOTIFICATION (02/01/2022 10:16 AM CDT) Comment Notification Label Only - See Separate Report 02/01/2022 11:30 AM CDT [facility] Urine URINE / Unknown 02/01/2022 1 0:16 AM CDT 02/01/2022 10:16 AM CDT Eddie Herrera MD LAB - URINALYSIS ORD ERABLES Performing Organization Address [facility]/ZIP Co de Phone Number [facility] [address] [place] [address], [facility] [phone] * PT-INR [facility] (02/01/2022 9:48 AM CDT) Only the most recent of65 resultswithin the time period is included. PT 12.7 12.1 - 14.8 Seconds 02/01/2022 10:27 AM CDT [facility] INR 1.0 See Comment 02/01/2022 10:27 AM CDT [facility] Comment:The suggested therap eutic range for standard coumadin (warfarin) therapy is an INR of 2.0-3.0. For high-risk patients (Mechanical Mitral Valve Prosthesis, etc.), the suggested prophylactic therapeutic range is an INR of 2.5-3.5. Blood BLOOD SPECIMEN / Unknown Venipuncture / Unknown 02/01/2022 9:48 AM CDT 02/01/2022 9:54 AM CDT Eddie eHrrera MD LAB - COAGULATION OR DERABLES Performing Organization Address [facility] Co de Phone Number [address] [address], [facility] [phone] * SIX MINUTE WALK (01/21/2022 4:07 PM CDT) Impressions Markus Whittaker MD - 01/21/2022 4:07 PM CDT [facility] DEPARTMENT OF PULMONARY, CRITICAL CARE, AND SLEEP [...] necessary changes when needed. Markus Whittaker MD Rn Clinician of Internal Medicine Division of Pulmonary, Critical Care and Sleep Medicine [facility] Pager: [phone] Narrative Markus Whittaker MD - 01/21/2022 4:07 PM CDT Jayda Rick DO 01/21/2022 4:24 PM Michael Mariscal MD RESPIRATORY THE [facility] ORDERABLES * COMPLETE PFT W/WO BRONCHODILATOR (01/21/2022 4:02 PM CDT) Impressions Markus Whittaker MD - 01/21/2022 4:02 PM CDT [facility] DEPARTMENT OF PULMONARY, CRITICAL CARE, AND SLEEP [...] necessary changes when needed. Markus Whittaker MD Rn Clinician of Internal Medicine Division of Pulmonary, Critical Care and Sleep Medicine [facility] Pager: [phone] Narrative Markus Whittaker MD - 01/21/2022 4:02 [...] NEGATIVE NEGATIVE [facility] Comment: Test Performed at: [facility] [address] [address] RADHA ROSADO MD 01/17/2022 8:38 AM CDT 01/17/2022 8:40 AM CDT Bob Varma MD LAB - HEMATOLOGY ORD ERABLES [facility] [address] [place] [address] * (ABNORMAL) DNA ANTIBODY DOUBLE STRANDED (01/17/2022 8:38 AM CDT) Only the most recent of32 resultswithin the time period is included. dsDNA Antibody 53(H) IU/mL [facility] Comment: IU/mL Interpretation < or = 4 Negative 5-9 Indeterminate > or = 10 Positive Test Performed at: [facility] [address] [place] [address] WESLEY ARAUJO DO,MPH 01/17/2022 8:38 AM CDT 01/17/2022 8:40 AM CDT Bob Varma MD LAB - HEMATOLOGY ORD ERABLES Performing Organization Address [facility] de Phone Number [facility] [phone] [place] [address] * ALDOLASE (01/17/2022 8:38 AM CDT) Only the most recent of9 resultswithin the time period is included. Aldolase 3.5 < OR = 8.1 U/L [facility] Comment: Test Performed at: [facility] [place] [address] WESLEY ARAUJO DO,MPH 01/17/2022 8:38 AM CDT 01/17/2022 8:40 AM CDT Bob Varma MD LAB - CHEMISTRY TOSHIA POPE Performing Organization Address [facility] de Phone Number [facility] [phone] [place] [address] * LDH BLOOD (01/17/2022 8:38 AM CDT) Only the most recent of10 resultswithin the time period is included. LD-Total 133 100 - 200 U/L [facility] Comment: Test Performed at: [facility], [place] [address] WESLEY ARAUJO DO,MPH 01/17/2022 8:38 AM CDT 01/17/2022 8:40 AM CDT Bob Varma MD LAB - CHEMISTRY TOSHIA POPE Performing Organization Address [facility] de Phone Number [facility] [phone] [place] [phone] * CK BLOOD (01/17/2022 8:38 AM CDT) Only the most recent of10 resultswithin the time period is included. CK 81 29 - 143 U/L [facility] Comment: Test Performed at: [employer], [place] [address] WESLEY ARAUJO DO,MPH 01/17/2022 8:38 AM CDT 01/17/2022 8:40 AM CDT Bob Varma MD LAB - CHEMISTRY ORDE NIKO Performing Organization Address [facility] Co de Phone Number [facility] [phone] [place] [address] * COMPLEMENT C4 (11/16/2021 12:24 PM CDT) Only the most recent of35 resultswithin the time period is included. Complement C4 16 15 - 57 mg/dL [facility] Comment: Test Performed at: [facility] [address] WESLEY ARAUJO DO,MPH Blood BLOOD SPECIMEN / Unknown 11/16/2021 12:24 PM CDT 11/16/2021 12:26 PM CDT Bob Varma MD LAB - SEROLOGY ORDER HEATHER Performing Organization Address [facility] de Phone Number [facility] [address] [place] [address] * PROTEIN CREATININE RATIO URINE RANDOM PNL [...] Comment: REPORT COMMENT: FASTING:YES Test Performed at: [facility] [address] WESLEY ARAUJO DO,MPH Urine URINE SPECIMEN OBTAINED BY CLEAN CATCH PROCEDURE / Unknown 11/16/2021 12:24 PM CDT 11/16/2021 12:26 PM CDT Bob Varma MD LAB - URINE CHEMISTR Y ORDERABLES Performing Organization Address [facility] Co de Phone Number [facility] [address] [place] [address] * COMPLEMENT C3 (11/16/2021 12:24 PM CDT) Only the most recent of28 resultswithin the time period is included. Complement C3 105 83 - 193 mg/dL [facility] Comment: Test Performed at: [facility] [address] [place] [address] WESLEY ARAUJO DO,MPH Blood BLOOD SPECIMEN / Unknown 11/16/2021 12:24 PM CDT 11/16/2021 12:26 PM CDT Bob Varma MD LAB - CHEMISTRY TOSHIA POPE [facility] [address] [place] [address] * CT CHEST PE W ABD PELVIS [...] resultswithin the time period is included. Pathologist [facility] Test Urine Negative Negative 10/15/2021 10:05 PM CDT [facility] Urine URINE / Unknown Collection / Unknown 10/15/2021 9:32 PM CDT 10/15/2021 9:39 PM CDT Amira Murdock HARP ACTION ASSEMBLER-GUIDE CHANGER LAB - URINALYS IS ORDERABLES [facility] [address] [place] [address], [facility] [phone] * (ABNORMAL) D-DIMER (10/15/2021 7:42 PM CDT) Only the most recent of2 resultswithin the time period is included. Pathologist [facility] D-Dimer Quantitative 0.65(H) <=0.50 mcg/mL FEU 10/15/2021 8:15 PM CDT [facility] Comment: In the absence of clinical symptoms, [...] CDT 10/15/2021 7:51 PM CDT Amira Murdock HARP ACTION ASSEMBLER-GUIDE CHANGER LAB - COAGULAT ION ORDERABLES Performing Organization Address [facility] Co de Phone Number [facility] [address] [address], [facility] [phone] * XR CHEST 2VW (10/15/2021 6:58 PM [...] Report dictated by Kvng Guerrero MD (residential life director). I, Dr. JUNAID CRAVEN MD have personally [...] Report dictated by Kvng Guerrero MD (residential life director). I, Dr. JUNAID CRAVEN MD have personally reviewed and interpreted this examination/study. This report was electronically signed by JUNAID CRAVEN MD on 10/15/2021 7:40 PM . Amira Murdock HARP ACTION ASSEMBLER-GUIDE CHANGER DIAGNOSTIC NICK GING ORDERABLES * (ABNORMAL) URINALYSIS REFLEX TO MICROSCOPIC NO CULTURE (10/13/2021 6:42 PM CDT) Only the most recent of10 resultswithin the time period is included. Color UA Yellow Straw, Yellow 10/13/2021 7:12 PM T [facility] Clarity UA Clear Clear 10/13/2021 7:12 PM [facility] Specific [place] UA 1.016 1.005 - 1.030 10/13/2021 7:12 PM [facility] pH UA 6.0 5.0 - 8.0 pH 10/13/2021 7:12 PM [facility] Protein UA Negative Negative 10/13/2021 7:12 PM [facility] Glucose UA Negative Negative 10/13/2021 7:12 PM [facility] Ketone UA Negative Negative 10/13/2021 7:12 PM [facility] Bilirubin UA Negative Negative 10/13/2021 7:12 PM [facility] Blood UA 2+(A) Negative 10/13/2021 7:12 PM [facility] Nitrite UA Negative Negative 10/13/2021 7:12 PM [facility] Leukocyte Esterase Negative Negative 10/13/2021 7:12 PM [facility] Urobilinogen UA Negative Negative mg/dL 10/13/2021 7:12 PM [facility] RBC UA 3-5 None Seen, 0-2, 3-5 /HPF 10/13/2021 7:12 PM [facility] WBC UA 6-10(A) None Seen, 0-5 /HPF 10/13/2021 7:12 PM [facility] Bacteria UA Trace(A) None /HPF 10/13/2021 7:12 PM CDT [facility] Squamous Epithelial Cells UA 0-2 None Seen, 0-2, 3-5 /HPF 10/13/2021 7:12 PM CDT [facility] Mucus UA 1+ /LPF 10/13/2021 7:12 PM CDT [facility] Urine URINE SPECIMEN OBTAINED BY CLEAN CATCH PROCEDURE / Unknown Collection / Unknown 10/13/2021 6:42 PM CDT 10/13/2021 6:51 PM CDT Narrative [facility] - 10/13/2021 7:12 PM CDT Caitlin Jaime PA-C LAB - URINALYSIS ORD ERABLES [facility] [address] [place] [address], [facility] [phone] * IL SONO EXAM, TRANSVAGINAL (09/23/2021 11:54 AM CDT) Narrative Renae Devine - 09/23/2021 11:54 AM CDT Renae Devine 09/23/2021 11:55 AM Documentation in digisonics Kimberly Balbuena MD PROCEDURE/KS NOR SURGICAL ORDERABLES * IMAGING RADIOLOGY XRAY RESULTS ORDER (09/23/2021) Only the most recent of25 resultswithin the time period is included. Anatomical Region Laterality Modality Other Narrative 09/23/2021 Ordered by an unspecified provider. Scanned Document IMAGING * (ABNORMAL) JEAN-PAUL SCREEN IFA+LUPUS PANEL (09/13/2021 8:31 AM CDT) Pathologist [facility] JEAN-PAUL Screen POSITIVE( A) NEGATIVE [facility] Comment: JEAN-PAUL IFA is a first line screen for detecting the presence of up to approximately 150 autoantibodies in various autoimmune diseases. A positive JEAN-PAUL IFA result is suggestive of autoimmune disease and reflexes to titer and pattern. Further laboratory testing may be considered if clinically indicated. For additional information, please refer to http://education.ProjectSpeaker/faq/DZE158 (This link is being provided for informational/ educational purposes only.) Test Performed at: [facility] [address] [place] [address] WESLEY ARAUJO DO,MPH Blood BLOOD SPECIMEN / Unknown 09/13/2021 8:31 AM CDT 09/13/2021 8:32 AM CDT Bob Varma MD LAB - SEROLOGY ORDER HEATHER Performing Organization Address [facility] Co de Phone Number [facility] [phone] [place] [phone] * (ABNORMAL) CHROMATIN ANTIBODY (09/13/2021 8:31 AM CDT) Only the most recent of5 resultswithin the time period is included. Chromatin Nucleosomal Antibody >8.0 POS(A) <1.0 NEG AI [facility] Comment: Test Performed at: [facility] [address] WESLEY ARAUJO DO,MPH 09/13/2021 8:31 AM CDT 09/13/2021 8:32 AM CDT Bob Varma MD LAB - SEROLOGY ORDER HEATHER Performing Organization Address [facility] Co de Phone Number [facility] [phone] [place] [address] * ROGERS (SM) ANTIBODY KARTHIKEYAN (09/13/2021 8:31 AM CDT) Only the most recent of6 resultswithin the time period is included. SM Antibody <1.0 NEG <1.0 NEG AI [facility] Comment: Test Performed at: [facility] [address] WESLEY ARAUJO DO,MPH 09/13/2021 8:31 AM CDT 09/13/2021 8:32 AM CDT Bob Varma MD LAB - CHEMISTRY TOSHIA POPE Performing Organization Address [facility] Co de Phone Number [facility] [address] [place] [address] * (ABNORMAL) JEAN-PAUL BLOOD TITER (09/13/2021 8:31 [...] AC-2,4,5,29: [employer] Consensus on JEAN-PAUL Patterns (https://doi.org/10.1515/dfdt-9343-6958) Test Performed at: [facility] [address] [employer] [place] [address] WESLEY ARAUJO DO,MPH 09/13/2021 8:31 AM CDT 09/13/2021 8:32 AM CDT Bob Varma MD LAB - CHEMISTRY TOSHIA POPE Performing Organization Address [facility] Co de Phone Number [facility] [address] [place] [address] * (ABNORMAL) IMMUNOGLOBULINS IGG/IGM/IGA PANEL (09/13/2021 8:31 AM CDT) IgA 537(H) 47 - 310 mg/dL [facility] IgG 1564 600 - 1640 mg/dL [facility] IgM 91 50 - 300 mg/dL [facility] Comment: Test Performed at: [facility] [address] [employer] [place] [address] WESLEY ARAUJO DO,MPH Blood BLOOD SPECIMEN / Unknown 09/13/2021 8:31 AM CDT 09/13/2021 8:32 AM CDT Bob Varma MD LAB - CHEMISTRY TOSHIA POPE Performing Organization Address [facility] Co de Phone Number [facility] [phone] [place] [address] * CT ANGIO CHEST PULM EMBOLISM (07/24/2021 [...] PAREKH M.D. on 07/25/2021 8:34 AM . Cait [...] characteristics have been determined by [facility]. It has not been cleared or approved by FDA. This assay has been validated pursuant to the CLIA regulations and is used for clinical purposes. REPORT COMMENT: COLLECTION KIT GIVEN TO PATIENT. PATIENT ADVISED TO RETURN. Test Performed at: [facility] [facility] [address] [place] [address] MARIO IZQUIERDO MD,PHD,JASON Blood BLOOD SPECIMEN / Unknown 07/13/2021 2:22 PM CDT 07/13/2021 2:24 PM CDT Bob Varma MD LAB - CHEMISTRY TOSHIA POPE Performing Organization Address [facility] Co de Phone Number [facility] [address] [place] [address] * PROTEIN ELECTROPHORESIS BLOOD (07/13/2021 2:22 PM CDT) Protein Total 7.9 6.1 - 8.1 g/dL [facility] Albumin 4.3 3.8 - 4.8 g/dL [facility] Alpha-1 Globulin 0.3 0.2 - 0.3 g/dL [facility] Irzix-0-Txpdpztb 0.9 0.5 - 0.9 g/dL [facility] Beta-1 Globulin g/dL 0.5 0.4 - 0.6 g/dL [facility] Beta-2 Globulin 0.5 0.2 - 0.5 g/dL [facility] Gamma Globulin 1.4 0.8 - 1.7 g/dL [facility] Abnormal Protein Band [facility] Abnormal Protein Band 2 [facility] Abnormal Protein Band 3 [facility] Interpretation [facility] Comment: No restricted band (M-spike) seen. Test Performed at: [facility] [address] [place] [address] WESLEY ARAUJO DO,MPH Blood BLOOD SPECIMEN / Unknown 07/13/2021 2:22 PM CDT 07/13/2021 2:24 PM CDT Bob Varma MD LAB - CHEMISTRY TOSHIA POPE Performing Organization Address [facility] Co de Phone Number [facility] [address] [place] [address] * IGM BLOOD (07/13/2021 2:22 PM CDT) IgM 85 50 - 300 mg/dL [facility] Comment: REPORT COMMENT: COLLECTION KIT GIVEN TO PATIENT. PATIENT ADVISED TO RETURN. Test Performed at: [facility] [place] [address] WESLEY ARAUJO DO,MPH Blood BLOOD SPECIMEN / Unknown 07/13/2021 2:22 PM CDT 07/13/2021 2:24 PM CDT Bob Varma MD LAB - CHEMISTRY TOSHIA POPE Performing Organization Address City/[facility]/ZIP Co de Phone Number [facility] [address] [place] [address] * IGG BLOOD (07/13/2021 2:22 PM CDT) Pathologist [facility] IgG 1485 600 - 1640 mg/dL [facility] Comment: Test Performed at: [facility] [place] [address] WESLEY ARAUJO DO,MPH Blood BLOOD SPECIMEN / Unknown 07/13/2021 2:22 PM CDT 07/13/2021 2:24 PM CDT Bob Varma MD LAB - CHEMISTRY TOSHIA POPE Performing Organization Address City/[facility] Co de Phone Number [facility] [address] [place] [address] * (ABNORMAL) IGA BLOOD (07/13/2021 2:22 PM CDT) IgA 489(H) 47 - 310 mg/dL [facility] Comment: Test Performed at: [employer] [place] [address] WESLEY ARAUJO DO,MPH Blood BLOOD SPECIMEN / Unknown 07/13/2021 2:22 PM CDT 07/13/2021 2:24 PM CDT oBb Varma MD LAB - CHEMISTRY TOSHIA POPE Performing Organization Address City/[facility]/ZIP Co de Phone Number [facility] [address] [place] [address] * PTT (07/12/2021 9:58 AM CDT) Pathologist [facility] PTT 28 23 - 32 sec [facility] Comment: This test has not been validated for monitoring unfractionated heparin therapy. For testing that is validated for this type of therapy, please refer to the Heparin Anti-Xa assay (test code 74144). For additional information, please refer to http://education.ProjectSpeaker/faq/HXX582 (This link is being provided for informational/educational purposes only.) Test Performed at: [facility] ([facility])[address] [address] LUNA BARRAZA MD 07/12/2021 9:58 AM CDT 07/12/2021 9:58 AM CDT Isa Rutledge MD LAB - COAGULATION O RDERABLES [address] [address] * HEPATIC FUNCTION PANEL (07/12/2021 9:58 AM CDT) Only the most recent of32 resultswithin the time period is included. Pathologist [facility] Protein Total 7.7 6.1 - 8.1 g/dL [...] 29 U/L [facility] Comment: Test Performed at: [facility] [place] [address] [place] [address] WESLEY ARAUJO DO,MPH 07/12/2021 9:58 AM CDT 07/12/2021 9:58 AM CDT Isa Rutledge MD LAB - CHEMISTRY ORD ERABLES [facility] [address] [place] [address] * (ABNORMAL) CBC W/O DIFFERENTIAL (12/07/2020 9:44 AM CDT) Only the most recent of48 resultswithin the time period is included. WBC 6.8 4.4 - 10.7 x10E9/L 12/07/2020 10:17 AM CDT [facility] RBC 3.08(L) 3.80 - 5.20 x10E12/L 12/07/2020 10:17 AM CDT [facility] Hemoglobin 8.8(L) 12.0 - 15.6 gm/dL 12/07/2020 10:17 AM CDT [facility] Hematocrit 26.7(L) 35.9 - 45.5 % 12/07/2020 10:17 AM CDT [facility] MCV 86.7 80.7 - 98.3 fl 12/07/2020 10:17 AM CDT [facility] MCH 28.6 26.7 - 34.0 pg 12/07/2020 10:17 AM CDT [facility] MCHC 33.0 30.8 - 35.9 gm/dL 12/07/2020 10:17 AM CDT [facility] Platelet Count 206 153 - 416 x10E9/L 12/07/2020 10:17 AM CDT [facility] RDW-CV 19.0(H) 12.1 - 14.9 % 12/07/2020 10:17 AM CDT [facility] MPV 9.2(L) 9.4 - 12.9 fl 12/07/2020 10:17 AM CDT [facility] Blood BLOOD SPECIMEN / Unknown Lab Venipuncture / Unknown 12/07/2020 9:44 AM CDT 12/07/2020 10:06 AM CDT Ricardo Cagle MD LAB - HEMATOLO GY ORDERABLES [facility] [address] [place] [address] * PATHOLOGY TISSUE EXAM (STL) (12/06/2020 1:45 PM CDT) Only the most recent of2 resultswithin the time period is included. 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 Operative procedure: section. 12/08/2020 3:42 PM CDT [facility] Gross Description The requisition and specimen [...] of total placental volume) predominantly on half. Test [facility] sections submitted as follows: A1 - umbilical cord and membranes; A2-3 placenta. /DJS 12/08/2020 3:42 PM CDT [facility] Microscopic Description Microscopic examination substantiates the above diagnosis. 12/08/2020 3:42 PM CDT [facility] Disclaimer All histochemical and/or immunohistochemical results are interpreted with controls that demonstrate appropriate staining reactions before reporting results. Note on use of immunocytochemistry reagents: This test was developed and its performance characteristic determined by [facility], Department of Laboratory Medicine. It has not [...] interpreted with caution. 12/08/2020 3:42 PM CDT [facility] Embedded Images 12/08/2020 3:42 PM CDT [facility] Pathology/Cytolo gy ENTIRE PLACENTA / Unknown 12/06/2020 1:45 PM CDT 12/07/2020 8:33 AM CDT Viviana Hinkle MD LAB - PATHOLOGY/CYTO LOGY ORDERABLES [facility] [address] [place], [place] [id number] * (ABNORMAL) BLOOD GASES CORD SEVERIANO (12/06/2020 [...] 12/06/2020 1:46 PM CDT [facility] Process Helper ID Bulmaro hernandez 12/06/2020 1:46 PM CDT [facility] Blood CORD BLOOD SPECIMEN / Unknown 12/06/2020 1:43 PM CDT 12/06/2020 1:43 PM CDT Viviana Hinkle MD LAB - BLOOD GASES OR DERABLES Performing Organization Address [facility] Co de Phone Number [facility] [address] [place] [address] * (ABNORMAL) BLOOD GASES CORD ARTERIAL (12/06/2020 [...] 12/06/2020 1:48 PM CDT [facility] Process Helper ID Bulmaro hernandez 12/06/2020 1:48 PM CDT [facility] Blood, arterial CORD BLOOD SPECIMEN / Unknown 12/06/2020 1:43 PM CDT 12/06/2020 1:43 PM CDT Viviana Hinkle MD LAB - BLOOD GASES OR DERABLES Performing Organization Address [facility]/ZIP Co de Phone Number [facility] [address] [place] [address] * Neuraxial Block (12/06/2020 1:02 PM CDT) Narrative Jacinda Lerma APRN-CRNA - 12/06/2020 1:02 PM CDT Jacinda Lerma APRN-CRNA 12/06/2020 1:14 PM Neuraxial Block Note [...] UA Negative Negative 12/06/2020 11:44 AM CDT [facility] Urine URINE / Unknown Collection / Unknown 12/06/2020 11:14 AM CDT 12/06/2020 11:20 AM CDT Narrative [facility] - 12/06/2020 11:44 AM CDT Ricardo Cagle MD LAB - URINALYS IS ORDERABLES [facility] [address] [place] [address] * (ABNORMAL) KETONES QUALITATIVE URINE AUTO (12/06/2020 11:14 AM CDT) Ketone UA Trace(A) Negative 12/06/2020 11:44 AM CDT [facility] Urine URINE / Unknown Collection / Unknown 12/06/2020 11:14 AM CDT 12/06/2020 11:20 AM CDT Narrative [facility] - 12/06/2020 11:44 AM CDT Ricardo Cagle MD LAB - URINALYS IS ORDERABLES Performing Organization Address [facility] Co de Phone Number [facility] [address] [place] [address] * US RETROPERITONEAL COMPLETE (12/06/2020 11:00 AM [...] - 125 U/L 12/06/2020 10:49 AM CDT [facility] Blood BLOOD SPECIMEN / Unknown Lab Venipuncture / Unknown 12/05/2020 10:26 PM CDT 12/05/2020 10:31 PM CDT Ricardo Cagle MD LAB - CHEMISTR Y ORDERABLES [facility] [address] [place] [address] * URINE MICROSCOPIC ONLY REFLEX TO CULTURE (12/05/2020 4:39 PM CDT) Only the most recent of6 resultswithin the time period is included. Reflex Status Culture to follow 12/05/2020 5:03 PM CDT [facility] RBC UA None Seen None Seen, 0-2, 3-5 # /hpf 12/05/2020 5:03 PM CDT [facility] WBC UA 0-5 None Seen, 0-5 # /hpf 12/05/2020 5:03 PM CDT [facility] Bacteria UA None Seen None Seen 12/05/2020 5:03 PM CDT [facility] Squamous Epithelial Cells 0-2 None Seen, 0-2, 3-5 /hpf 12/05/2020 5:03 PM CDT [facility] Mucus UA 1+ /LPF 12/05/2020 5:03 PM CDT [facility] Urine URINE SPECIMEN OBTAINED BY CLEAN CATCH PROCEDURE / Unknown Collection / Unknown 12/05/2020 4:39 PM CDT 12/05/2020 4:45 PM CDT Narrative [facility] - 12/05/2020 5:03 PM CDT Ricardo Cagle MD LAB - URINALYS IS ORDERABLES [facility] [address] [place] [address] * (ABNORMAL) URINALYSIS REFLEX MICROSCOPIC REFLEX CULTURE (12/05/2020 4:39 PM CDT) Only the most recent of14 resultswithin the time period is included. Color UA Yellow Straw, Yellow 12/05/2020 4:59 PM CDT [facility] Clarity UA Slt Cloudy(A) Clear 12/05/2020 4:59 PM CDT [facility] Glucose UA Negative Negative 12/05/2020 4:59 PM CDT [facility] Bilirubin UA Negative Negative 12/05/2020 4:59 PM CDT [facility] Ketone UA Negative Negative 12/05/2020 4:59 PM CDT [facility] Specific Ballico UA 1.012 1.005 - 1.030 12/05/2020 4:59 PM CDT [facility] Blood UA Negative Negative 12/05/2020 4:59 PM CDT [facility] pH UA 7.0 5.0 - 8.0 pH 12/05/2020 4:59 PM CDT [facility] Protein UA Negative Negative 12/05/2020 4:59 PM CDT [facility] Urobilinogen UA Negative Negative mg/dL 12/05/2020 4:59 PM CDT [facility] Nitrite UA Negative Negative 12/05/2020 4:59 PM CDT [facility] Leukocyte UA Trace(A) Negative 12/05/2020 4:59 PM CDT [facility] Urine Microscopy Urine microscopy to follow 12/05/2020 4:59 PM CDT [facility] Reflex Status Culture to follow 12/05/2020 4:59 PM CDT [facility] Urine URINE SPECIMEN OBTAINED BY CLEAN CATCH PROCEDURE / Unknown Collection / Unknown 12/05/2020 4:39 PM CDT 12/05/2020 4:45 PM CDT Narrative [facility] - 12/05/2020 4:59 PM CDT Ricardo Cagle MD LAB - URINALYS IS ORDERABLES Performing Organization Address City/[facility]/ZIP Co de Phone Number [facility] [address] [place] [address] * CHLAMYDIA + GC AMPLIFIED PROBE (STL) (12/01/2020 12:33 PM CDT) Only the most recent of3 resultswithin the time period is included. Chlamydia Amplified Probe Negative Negative 12/01/2020 8:58 PM CDT [facility] GC Amplified Probe Negative Negative 12/01/2020 8:58 PM CDT [facility] Microbiology ENTIRE VAGINA / Unknown Collection / Unknown 12/01/2020 12:33 PM CDT 12/01/2020 1:08 PM CDT Narrative [facility] - 12/01/2020 8:58 PM CDT Results based on detection/no detection of ribosomal RNA by amplified method. Garrick Farley MD LAB - MICROBIOLOGY O RDERABLES [facility] [address] [place] [phone] * TRICHOMONAS RAPID TEST (12/01/2020 12:33 PM CDT) Only the most recent of3 resultswithin the time period is included. Trichomonas Rapid Test Negative Negative 12/01/2020 1:38 PM CDT [facility] Microbiology VAGINAL SWAB / Unknown Collection / Unknown 12/01/2020 12:33 PM CDT 12/01/2020 1:08 PM CDT Garrick Farley MD LAB - MICROBIOLOGY O RDERABLES [facility] [address] [place], [place] [id number] * IL BIOPHYSICAL PROFILE, IL SONO FU OR REPEAT (12/01/2020 9:17 AM CDT) Narrative Neha Atkins - 12/01/2020 9:17 AM CDT Neha Atkins 12/01/2020 9:18 AM Documentation in digisonics. See NST Flowsheet. Oriana Stringer MD PROCEDURE/KARINE R SURGICAL ORDERABLES * URINALYSIS - POINT OF CARE (AMB) [facility] (11/27/2020) Only the most recent of19 resultswithin the time period is included. Specific [place] UA 1.020 pH UA 6 WBC UA n Nitrite UA n Protein UA n Glucose UA n Ketones UA POCT n Urobilinogen UA n Bilirubin UA POCT n Blood Urine POCT n Urine URINE / Unknown 11/27/2020 Garrick Farley MD LAB - POINT OF CARE ORDERABLES * IL OB US, LIMITED, FETUS(S), [place] BIOPHYSICAL PROFILE (11/24/2020 9:44 AM CDT) Narrative [...] Interventions: N/A Estephania Manuel RN Non-Stress Test [facility] Patient Name: Thalia Esposito LMP: Patient's last menstrual period was 03/21/2020. Indications: nausea/vomiting NST date: 11/20/2020 NST duration: >20 mins Interpretation: Baseline: 150 beats/minute mod variability Reactive Contractions: none Decelerations: none Impression and Plan: FWB reassuring, continue monitoring as scheduled. Marlene Bass MD 11/20/2020 9:39 PM Cami Mendoza MD [facility] ORD ERABLES * PHOSPHORUS BLOOD (11/20/2020 5:56 PM CDT) Only the most recent of91 resultswithin the time period is included. Phosphorus 4.1 2.3 - 4.7 mg/dL 11/20/2020 6:31 PM CDT [facility] Blood BLOOD SPECIMEN / Unknown Venipuncture / Unknown 11/20/2020 5:56 PM CDT 11/20/2020 6:11 PM CDT Cami Mendoza MD LAB - C HEMISTRY ORDERABLES [facility] [address] [place] [address] * (ABNORMAL) MAGNESIUM BLOOD (11/20/2020 5:56 PM CDT) Only the most recent of97 resultswithin the time period is included. Magnesium 1.5(L) 1.6 - 2.6 mg/dL 11/20/2020 6:31 PM CDT [facility] Blood BLOOD SPECIMEN / Unknown Venipuncture / Unknown 11/20/2020 5:56 PM CDT 11/20/2020 6:11 PM CDT Cami Mendoza MD LAB - C HEMISTRY ORDERABLES [facility] [address] [place] [address] * (ABNORMAL) GLUCOSE - POINT OF CARE (11/20/2020 5:34 PM CDT) Glucose WB/POC 63(L) 70 - 106 mg/dL 11/20/2020 5:41 PM CDT [facility] Specimen Type Venous 11/20/2020 5:41 PM CDT [facility] Blood BLOOD SPECIMEN / Unknown 11/20/2020 5:34 PM CDT 11/20/2020 5:41 PM CDT Cami Mendoza MD LAB - P OINT OF CARE ORDERABLES [facility] [address] [place] [address] * IL OB US, LIMITED, FETUS(S), [place] BIOPHYSICAL PROFILE (11/17/2020 9:09 AM CDT) Narrative [...] OTHER INFORMATION Familia Dolan RN Non-Stress Test [facility] Patient Name: Thalia Esposito LMP: Patient's last [...] Ventura MD 11/13/2020 10:26 PM Non-Stress Test [facility] Patient Name: Thalia Esposito LMP: Patient's last [...] OTHER INFORMATION Luanne Garcia, DANILO Renae Maciel [employer]SEMBLER-GUIDE [employer]ANGER OB GYNE ORDER HEATHER * GLUCOSE PROTEIN [...] POINT OF CARE ORDERABLES Performing Organization Address [facility] de Phone Number [facility] POCT TESTING [address] [place] [address] * AIMEE DIRECT (11/09/2020 7:15 PM CDT) Only the most recent of4 resultswithin the time period is included. Pathologist [facility] Direct Aimee (BENSON) NEG 11/11/2020 12:14 PM CDT [facility] B[facility] LAB Blood Bank BLOOD SPECIMEN / Unknown Venipuncture / Unknown 11/09/2020 7:15 PM CDT 11/09/2020 7:20 PM CDT Alem Alvarez MD LAB - BLOOD BANK OR DERABLES Performing Organization Address [facility] de Phone Number [facility] [address] [place] [address] * ANTIBODY IDENTIFICATION (11/09/2020 7:15 PM CDT) Only the most recent of4 resultswithin the time period is included. Antibody 1 POS, Ab of Undetermined Specificity 11/11/2020 12:13 PM CDT [facility] Comment:This is a corrected result. Previous result was POS, Warm Autoantibody on 11/09/2020 at 2040 CDT Antibody 2 POS, Ab of Undetermined Specificity 11/11/2020 12:13 PM CDT [facility] Blood Bank BLOOD SPECIMEN / Unknown Venipuncture / Unknown 11/09/2020 7:15 PM CDT 11/09/2020 7:20 PM CDT Alem Alvarez MD LAB - BLOOD BANK OR DERABLES [facility] [address] [phone] * (ABNORMAL) DIFFERENTIAL MANUAL (11/09/2020 7:15 PM CDT) Only the most recent of8 resultswithin the time period is included. WBC Auto 7.2 x10E9/L 11/09/2020 8:00 PM CDT [facility] WBC Corrected 11/09/2020 8:00 PM CDT [facility] nRBC 11/09/2020 8:00 PM CDT [facility] Neutrophil % Manual 70 44 - 73 % 11/09/2020 8:00 PM CDT [facility] Lymphocytes % Manual 11(L) 20 - 43 % 11/09/2020 8:00 PM CDT [facility] Monocytes % Manual 6 5 - 13 % 2020 8:00 PM CDT [facility] Eosinophils % Manual 1 0 - 6 % 11/09/2020 8:00 PM CDT [facility] Basophils % Manual 1 0 - 2 % 2020 8:00 PM CDT [facility] Neutrophils Absolute Manual 5.54 2.01 - 7.14 x10E9/L 11/09/2020 8:00 PM CDT [facility] Lymphocytes Absolute Manual 0.79(L) 1.07 - 3.94 x10E9/L 11/09/2020 8:00 PM CDT [facility] Monocytes Absolute Manual 0.43 0.26 - 1.07 x10E9/L 11/09/2020 8:00 PM CDT [facility] Eosinophils Absolute Manual 0.07 0.00 - 0.47 x10E9/L 11/09/2020 8:00 PM CDT [facility] Basophils Absolute Manual 0.07 0.00 - 0.08 x10E9/L 11/09/2020 8:00 PM CDT [facility] Metamyelocytes Absolute Manual 0.07(H) <=0.00 x10E9/L 11/09/2020 8:00 PM CDT [facility] Myelocytes Absolute Manual 0.07(H) <=0.00 x10E9/L 11/09/2020 8:00 PM CDT [facility] Atypical Lymphocytes Absolute Manual 0.14(H) <=0.00 x10E9/L 11/09/2020 8:00 PM CDT [facility] Band % Manual 7 0 - 11 % 11/09/2020 8:00 PM CDT [facility] Cameron Manual 1(H) <=0 % 11/09/2020 8:00 PM CDT [facility] Myelocytes % Manual 1(H) <=0 % 11/09/2020 8:00 PM CDT [facility] Atypical Lymphocyte % Manual 2(H) <=0 % 11/09/2020 8:00 PM CDT [facility] Cells Counted 100 # cells 11/09/2020 8:00 PM CDT [facility] RBC Morphology Normal 11/09/2020 8:00 PM CDT [facility] WBC Morph Normal 11/09/2020 8:00 PM CDT [facility] Platelet Estimation Normal 11/09/2020 8:00 PM CDT [facility] Blood BLOOD SPECIMEN / Unknown Venipuncture / Unknown 11/09/2020 7:15 PM CDT 11/09/2020 7:20 PM CDT Alem Alvarez MD LAB - HEMATOLOGY OR DERABLES [facility] [id number] [place] [address] * NONSTRESS TEST (11/03/2020 4:21 [...] OTHER INFORMATION Keli Reyes RN Non-Stress Test [facility] Patient Name: Thalia Esposiot LMP: Patient's last menstrual period was 03/21/2020. Indications: Rule out labor NST date: 11/03/2020 NST duration: >20 mins Interpretation: Baseline: 141 beats/minute mod variability Reactive Contractions: every 2-5 minutes Decelerations: none Impression and Plan: FWB reassuring, continue monitoring as scheduled. Marlene Bass MD 11/04/2020 8:08 AM Alem Alvarez MD OB GYNE ORDERABLES * IL BIOPHYSICAL PROFILE, IL SONO FU OR REPEAT (11/03/2020 9:17 AM [...] Yes OTHER INFORMATION PGY1 Addendum Non-Stress Test [facility] Patient Name: Thalia Esposito LMP: Patient's last [...] OTHER INFORMATION Josselin Treviño RN Non-Stress Test [facility] Patient Name: Thalia Esposito LMP: Patient's last menstrual period was 03/21/2020. Indications: Other r/o PTL in the setting of abdominal pain NST date: 10/24/2020 NST duration: >20 mins Interpretation: Baseline: 135 beats/minute moderate variability Reactive Contractions: none Decelerations: variable Impression and Plan: FWB reassuring, continue monitoring as scheduled. Trang Leal MD 10/25/2020 8:31 PM Garrick Farley MD OB GYNE ORDERABLES * IL SONO FU OR REPEAT (10/09/2020 4:16 PM CDT) Narrative Dina Dockery, RDWA - 10/09/2020 4:16 PM CDT Dina Dockery, [...] a test for HCV RNA (test code 47823) is suggested. For additional information please refer to http://education.ProNerve/faq/FCK08q5 (This link is being provided for informational/ educational purposes only.) REPORT COMMENT: FASTING:NO Test Performed at: [facility] [address] [place] [address] WESLEY ARAUJO DO,MPH Blood BLOOD SPECIMEN / Unknown 10/09/2020 10/09/2020 2:07 PM CDT Isa Rutledge MD LAB - CHEMISTRY ORD ERABLES Performing Organization Address City/State/[facility] Co de Phone Number [facility] [address] [place] [address] * HIV-1 HIV-2 ANTIBODY + HIV P24 [...] purpose. For additional information please refer to http://education.PandoDaily.SIGFOX/faq/XDD845 (This link is being provided for informational/ educational purposes only.) The performance of this assay has not been clinically validated in patients less than 2 years old. Test Performed at: [facility] [address] [place] [address] WESLEY ARAUJO DO,MPH Blood BLOOD SPECIMEN / Unknown 10/09/2020 10/09/2020 2:07 PM CDT Isa Rutledge MD LAB - CHEMISTRY ORD ERABLES Performing Organization Address [facility] Co de Phone Number [place] [phone] [place] [address] * GLUCOSE CHALLENGE (10/09/2020) Only the most recent of2 resultswithin the time period is included. GTT 1Hr 113 <135 mg/dL [facility] Comment: Test Performed at: [facility] [address] [place] [address] WESLEY ARAUJO DO,MPH Blood BLOOD SPECIMEN / Unknown 10/09/2020 10/09/2020 2:07 PM CDT Isa Rutledge MD LAB - CHEMISTRY ORD ERABLES Performing Organization Address [facility] [place] [address] * IL OB US, LIMITED, FETUS(S), IL DOPPLER COLOR FLOW VELOCITY MAP, IL DOPPLER ECHO PULSED WAVE &/CONT WAVE; CMPL, IL SONO HEART (09/25/2020 4:59 PM CDT) Narrative Neha Atkins - 09/25/2020 4:59 PM CDT Neha Atkins 09/25/2020 5:00 PM Documentation in digisonics. Isa Rutledge MD PROCEDURE/MINOR DORA GICAL ORDERABLES * IL SONO HEART F/U, IL SONO FU OR REPEAT (09/11/2020 3:59 PM CDT) Narrative Renae Devine - 09/11/2020 3:59 PM CDT Estiven Devineelle 09/11/2020 3:59 PM Documentation in digisonics Ricardo Cagle MD PROCEDURE/KARINE R SURGICAL ORDERABLES * IL OB US, LIMITED, FETUS(S), IL DOPPLER ECHO PULSE WAVE&/CONT WAVE; REPEAT (08/28/2020 3:40 PM CDT) Narrative LeanderRenae - 08/28/2020 3:40 PM CDT LeanderRenae 08/28/2020 3:41 PM Documentation in digisonics Isa Rutledge MD PROCEDURE/MINOR DORA GICAL ORDERABLES * COMPLETE PFT (08/25/2020 4:22 PM CDT) Narrative [place] - 08/25/2020 4:22 PM CDT Estiven Conklin [...] capacity. Please correlate clinically. Estiven Conklin MD[facility] Be advised that voice recognition software was [...] capacity. Please correlate clinically. Estiven Conklin MD, [facility]. Be advised that voice recognition software was used in the production ofthis record. Errors in interpretation may have been inadvertently missedduring review. Isa Rutledge MD RESPIRATORY THERAPY ORDERABLES [facility] * ECHOCARDIOGRAM 2D WITH DOPPLER (08/25/2020 1:40 PM CDT) Only the most recent of2 resultswithin the time period is included. 08/25/2020 1:40 PM CDT Narrative Procedure Note Марина Bustamante DO - 08/25/2020 . [facility] [address] [place] [id number] Echocardiography Examination Transthoracic Name: THALIA ESPOSITO MPI#: [id number] MR#: [id number] Admission Number: [id number] Study Date: 08/25/2020 Study Time: 01:40 PM Date Of : 1990 Age: 30 years Height: 61 in. (154.9 cm) Weight: 156.99 lbs. (71.21 kg) BSA: 1.7 m2 Gender: Female Blood Pressure: 109 mmHg / 62 mmHg Heart Rate: Exam Details Procedure Ordered: ECHOCARDIOGRAM 2D W/DOPPLER Procedure Components: Complete 2D, M-mode, complete spectral Doppler, color Doppler Procedure Status: Routine study Facility Location: [facility] Indication: Systemic Lupus Erythematosus Procedure Microbiology Teacher: Radha Chicas RDCS Ordering Provider: ISA RUTLEDGE [...] 199 ms Function Mitral Valve MV Dec [place] 4.5 m/s Pulmonic Valve PV PGmax 4 mmHg Pulmonic Valve PV Vmax, Caliper 1 m/s (0.6m/s - 0.9m/s) Pulmonic Valve IL End arellano Wayne 0.83 cm/s Right Ventricle Diastolic IL P diast. 3 mmHg Function Right Ventricle Diastolic Diast. PAP (IL P diast. + 6 mmHg Function CVP) Tricuspid Valve RA Pressure 3 mmHg (No Signature Object) Patient: THALIA ESPOSITO Study Date: 08/25/2020 01:40 PM Page 3 of 3 Isa Rutledge MD ECHO ORDERABLES [facility] [address] [place] [address] * (ABNORMAL) SURESWAB VAGINOSIS/VAGINITIS PLUS (08/14/2020 4:07 PM CDT) Chlamydia trachomatis RNA NOT DETECTED [facility] GC RNA NOT DETECTED [facility] Comment: REFERENCE RANGE: NOT DETECTED Methodology: Anime Designer Mediated Amplification (TMA) to detect RNA. The analytical performance characteristics of this assay, when used to test SurePath(TM) specimens have been determined by [facility]. The modifications have not been cleared or approved by the FDA. This assay has been validated pursuant to the CLIA regulations and is used for clinical purposes. For additional information, please refer to https://education.PandoDaily.SIGFOX/faq/KAE784 (This link is being provided for informational/ [...] analytical performance characteristics have been determined by [facility]. It has not been cleared or approved by FDA. This assay has been validated pursuant to the CLIA regulations and is used for clinical purposes. Trichomonas vaginalis RNA Qualitative NOT DETECTED [facility] Comment: REFERENCE RANGE: NOT DETECTED Methodology: Anime Designer Mediated Amplification (TMA) For additional information, please refer to http://education.ProNerve/faq/Trichomonastma (This link is being provided for informational/educational purposes only.) Tess albicans DNA DETECTED(A) [facility] Tess glabrata DNA NOT DETECTED [facility] Tess tropicalis DNA NOT DETECTED [facility] Tess parapsilosis DNA NOT DETECTED [facility] Comment: REFERENCE RANGE: NOT DETECTED Methodology: Real-Time PCR This test was developed and its analytical performance characteristics have been determined by [facility]. It has not been cleared or approved by FDA. This assay has been validated pursuant to the CLIA regulations and is used for clinical purposes. Test Performed at: [facility] [address] [place] [address] Radha LANDRY Microbiology VAGINAL SWAB / Unknown 08/14/2020 4:07 PM CDT 08/15/2020 2:20 AM CDT Isa Rutledge MD LAB - MICROBIOLOGY ORDERABLES [facility] [address] [place] [address] * IL DOPPLER ECHO PULSE WAVE&/CONT WAVE; REPEAT, IL ULTRASND,PREG UTERUS,IMAGE DOC (08/14/2020 3:16 PM CDT) [...] embolism. A preliminary report was provided by [facility] on 07/09/2020 at 11:21 PM. *Reading [...] embolism. A preliminary report was provided by [facility] on 07/09/2020 at 11:21 PM. *Reading Radiologist: Shahriar Ballesteros on 07/10/2020 at 10:59 AM Leia Winslow MD NM ORDERABLES * ANTIBODY SCREEN (06/23/2020 3:20 PM CDT) Only the most recent of6 resultswithin the time period is included. Antibody Screen POS 4:34 PM CDT [facility] Comment:History checked. Blood BLOOD SPECIMEN / Unknown Lab Venipuncture / Unknown 06/23/2020 3:20 PM CDT 06/23/2020 3:25 PM CDT Isa Rutledge MD LAB - BLOOD BANK OR DERABLES [facility] [address] [place] [address] * LUPUS ANTICOAGULANT PANEL (06/12/2020 4:54 PM DOBIE WORKER) Only the most recent of3 resultswithin the time period is included. Pathologist [facility] APTT 32.1 23.0 - 38.4 Seconds 06/16/2020 10:53 AM [facility] PT 12.5 12.1 - 14.8 Seconds 06/16/2020 10:53 AM [facility] INR 1.0 See Comment 06/16/2020 10:53 AM [facility] Buffer 46.4 Seconds 021 10:53 AM [facility] Phospholipid 43.8 Seconds 06/16/2020 10:53 AM [facility] Delta 2.6 <8.0 Seconds 06/16/2020 10:53 AM [facility] Interpretation [facility] Negative 06/16/2020 10:53 AM [facility] Comment:Up to 15-20% of rehan ents with lupus anticoagulant associated with antiphospholipid antibody syndrome (APAS) will have negative [facility] results. For these patients we recommend additional testing to include the Dilute Dvaid Viper Venom Time (DRVVT) test. Immunoassay measurements of anti-cardiolipin and anti-beta-2 glycoprotein 1 are recommended if the DRVVT, and STACLOT-[facility] tests are negative and there is clinical suspicion of APAS. Blood BLOOD SPECIMEN / Unknown Lab Venipuncture / Unknown 06/12/2020 4:54 PM DOBIE WORKER 06/12/2020 4:54 PM DOBIE WORKER Isa Rutledge MD LAB - HEMATOLOGY OR DERABLES [facility] [place] [address] [place] [address], [facility] [phone] * HEMOGLOBIN A1C (06/12/2020 4:54 PM DOBIE WORKER) Hemoglobin A1c 4.9 4.2 - 5.6 % 06/12/2020 5:26 PM DOBIE WORKER [facility] Estimated Average Glucose 94 mg/dL 06/12/2020 5:26 PM DOBIE WORKER [facility] Blood BLOOD SPECIMEN / Unknown Lab Venipuncture / Unknown 06/12/2020 4:54 PM DOBIE WORKER 06/12/2020 4:53 PM DOBIE WORKER Narrative [facility] - 06/12/2020 5:26 PM DOBIE WORKER The following cutoff levels are recommended by [place] [employer]. A1c > 6.5% : considered [...] Rutledge MD LAB - CHEMISTRY ORD ERABLES [facility] [address] [place], [place] [id number] * [place] US NUCHAL TRANSLUCENCY 1ST GESTATION (06/12/2020 2:46 PM DOBIE WORKER) Narrative Renae Devine - 06/12/2020 2:46 PM DOBIE WORKER Renae Devine 06/12/2020 2:46 PM Documentation in digisonics Isa Rutledge MD PROCEDURE/MINOR DORA GICAL ORDERABLES * QNATAL ADVANCED (06/12/2020 1:43 PM DOBIE WORKER) Number of Fetuses 1 [facility] Advanced Maternal [...] information reviewed by Maria Eugenia Zhang, Ph.D., [facility], [facility]. Limitations Qnatal Advanced SEE NOTE [facility] [...] Health care providers, please contact your local [facility] genetic counselor or call [facility] ([phone]) for assistance with interpretation of these results. Specifications Avillion SEE NOTE [facility] Comment: Sensitivity Specificity T21 >99.9% >99.9% T18 >99.9% >99.9% T13 >99.9% >99.9% Accuracy Y >99.9% Performance of the [employer] laboratory-developed test (LDT) has been determined based on internal analytical assessment. Methodology Avillion SEE NOTE [facility] Comment: Circulating cell-free (cf) [...] its performance characteristics have been determined by [facility]. It has not been cleared or approved by the U.S. Food and Drug Administration. The FDA has determined that such clearance or approval is not necessary. Performance characteristics refer to the analytical performance of the test. This test is performed pursuant to a license agreement with [employer]. This test was developed and its analytical performance characteristics have been determined by [facility]. It has not been cleared or approved by FDA. This assay has been validated pursuant to the CLIA regulations and is used for clinical purposes. Test Performed at: [facility] [address] [place] [address] MARIO IZQUIERDO MD,PHD,JASON Blood BLOOD SPECIMEN / Unknown 06/12/2020 1:43 PM DOBIE WORKER 06/12/2020 1:44 PM DOBIE WORKER Garrick Farley MD LAB - CHEMISTRY [facility] Organization Address City/State/ZIP Co de Phone Number [facility] [address] [place] [address] * [place] ULTRASOUND, UTERUS (05/15/2020 3:40 PM DOBIE WORKER) Narrative Dina Dockery RDMS - 05/15/2020 3:40 PM DOBIE WORKER Dina Dockery RDMS 05/15/2020 3:40 PM Documentation in digisonics. Garrick Farley MD PROCEDURE/MINOR SURG ICAL ORDERABLES * C. TRACHOMATIS + N. GONORRHOEAE + TRICH DAT (05/15/2020 3:11 PM DOBIE WORKER) Chlamydia Trachomatis DAT Not detected Not detected 05/18/2020 4:35 PM DOBIE WORKER [facility] Neisseria Gonorrhoeae DAT Not detected Not detected 05/18/2020 4:35 PM DOBIE WORKER [facility] Trichomonas Vaginalis DAT Not detected Not detected 05/18/2020 4:35 PM DOBIE WORKER [facility] Pathology/Cytolo gy VAGINA AND CERVIX, CS / Unknown 05/15/2020 3:11 PM DOBIE WORKER 05/18/2020 12:24 PM DOBIE WORKER Narrative [facility] - 05/18/2020 4:35 PM DOBIE WORKER This analysis was performed using Gen-Probe Aptima Combo 2 and Gen-Probe Aptima Assay. These methodologies are U.S. FDA approved for Chlamydia trachomatis, Neisseria gonorrhoeae testing for urine and urogenital swabs from men and women, and cervical cells submitted in ThinPrep vials. Performance characteristics of testing for Trichomonas vaginalis on specimens using the Gen-Probe Aptima Trichomonas vaginalis Assay on the Spencer system and rectal and pharyngeal swabs with Gen-Probe Aptima combo 2 were determined by the [facility] at [facility]. They have not been cleared or approved [...] [facility] [address] [phone] * PAP IMAGE-GUIDED RFLX HPV+CT/NG+TRICH (05/15/2020 3:11 PM DOBIE WORKER) Case Report Gynecologic Cytology Report Case: [id number] Authorizing Provider: Garrick Farley MD Collected: 05/15/2020 03:11 PM Ordering Location: [facility] Obstetrics Received: 05/18/2020 12:24 PM [facility] Screen: Guru Ellis Specimen: THINPREP - IMAGE GUIDED, Cervicovaginal 05/19/2020 3:44 PM DOBIE WORKER [facility] LMP preg 05/19/2020 3:44 PM DOBIE WORKER [facility] Menstrual Status 05/19/19 3:44 PM DOBIE WORKER [facility] Comment:7w6d Specimen Adequacy Satisfactory for evaluation, endocervical/trans formation zone component present. 05/19/2020 3:44 PM DOBIE WORKER [facility] Categorization Negative for intraepithelial lesion or malignancy. 05/19/2020 3:44 PM DOBIE WORKER [facility] Interpretation PRECISION LENS GRINDER Negative for intraepithelial lesion or malignancy. 05/19/2020 3:44 PM [facility] Other Predominance of Coccobacilli consistent with shift in vaginal nenita (vaginosis). Inflammation present. 05/19/2020 3:44 PM [facility] Pap Footnote The Pap Smear is a screening test. False positive and false negative results occur. Negative results do not preclude abnormalities, thus clinical correlation is required. This specimen was evaluated by the ThinPrep Imaging System along with an additional manual rescreening by a laborer sawmill and/or pathologist. 05/19/2020 3:44 PM [facility] Embedded Images 3:44 PM [facility] Pathology/Cytolo gy VAGINA AND CERVIX, CS / Unknown 05/15/2020 3:11 PM DOBIE WORKER 05/18/2020 12:24 PM DOBIE WORKER Garrick Farley MD LAB - PATHOLOGY/CYTO LOGY ORDERABLES [facility] [address] [phone] * (ABNORMAL) AIMEE DIRECT RFLX ANTI C3 AND ANTI IGG (05/15/2020) Direct Antiglobulin w/refl Anti C3, Anti IgG POSITIVE( A) NEGATIVE [facility] Comment: Test Performed at: [facility] [address] [place] [address] WESLEY ARAUJO DO,MPH 05/15/2020 05/15/2020 3:2 0 PM DOBIE WORKER Garrick Farley MD LAB - BLOOD BANK ORD ERABLES [facility] [address] [place] [address] * (ABNORMAL) COMPLEMENT C3 AB+IGG AB (05/15/2020) Only the most recent of2 resultswithin the time period is included. Pathologist [facility] Anti-Complement POSITIVE( A) NEGATIVE [facility] Anti-IgE POSITIVE( A) NEGATIVE [facility] Comment: Test Performed at: [facility] [employer] [facility] [address] [facility] [place] [address] WESLEY ARAUJO DO,MPH 05/15/2020 05/15/2020 3:2 0 PM DOBIE WORKER Garrick Farley MD LAB - COAGULATION OR DERABLES [facility] [address] [place] [address] * (ABNORMAL) OB Panel W/ HBSAG (05/15/2020) Only the most recent of2 resultswithin the time period is included. Pathologist [facility] White Blood Cell Count 3.9 3.8 - [...] Comment: For additional information, please refer to http://education.ProjectSpeaker/faq/LFT324 (This link is being provided for informational/ [...] infection with rubella virus. Test Performed at: [facility] [address] [place] [address] WESLEY ARAUJO DO,MPH Blood BLOOD SPECIMEN / Unknown 05/15/2020 05/15/2020 3:20 PM DOBIE WORKER Garrick Farley MD LAB - CHEMISTRY ORDE [facility] Performing Organization Address [facility] Co de Phone Number [facility] [address] [place] [address] * (ABNORMAL) ROGERS (SM)+WEATHERIZATION CREW LEADER ANTIBODY PANEL (05/15/2020) [facility] SM Antibody <1.0 NEG <1.0 NEG AI [facility] SM/WEATHERIZATION CREW LEADER Antibody >8.0 POS(A) <1.0 NEG AI [facility] Comment: Test Performed at: [facility] [address] [place] [address] WESLEY ARAUJO DO,MPH Blood BLOOD SPECIMEN / Unknown 05/15/2020 05/15/2020 3:20 PM DOBIE WORKER Garrick Farley MD LAB - SEROLOGY ORDER HEATHER Performing Organization Address [facility] Co de Phone Number [facility] [address] [place] [address] * (ABNORMAL) DIFFERENTIAL MANUAL RFLXED (05/15/2020) Pathologist [facility] Neutrophil Absolute 2379 1500 - 7800 cells/uL [...] perform a manual review. Test Performed at: [facility] [place] [address] WESLEY ARAUJO DO,MPH 05/15/2020 05/15/2020 3:2 0 PM DOBIE WORKER Garrick Farley MD LAB - HEMATOLOGY ORD ERABLES [facility] [address] [place] [address] * CARDIOLIPIN ANTIBODY IGA/IGG/IGM PANEL (05/15/2020) Cardiolipin [...] loss. REPORT COMMENT: FASTING:NO Test Performed at: [facility] [address] [place] [address] MARIO IZQUIERDO MD,PHD,JASON Blood BLOOD SPECIMEN / Unknown 05/15/2020 05/15/2020 3:20 PM DOBIE WORKER Garrick Farley MD LAB - SEROLOGY ORDER HEATHER Performing Organization Address [facility] Co de Phone Number [facility] [address] [place] [address] * BETA-2 GLYCOPROTEIN 1 ANTIBODY IGG/IGM/IGA PANEL [...] drug therapy or aging. Test Performed at: [facility])/[address] PARAS LOPEZ MD,PHD Blood BLOOD SPECIMEN / Unknown 05/15/2020 05/15/2020 3:20 PM DOBIE WORKER Garrick Farley MD LAB - SEROLOGY ORDER HEATHER Performing Organization Address [facility] Co de Phone Number [facility] [address] [place] [address] * (ABNORMAL) JEAN-PAUL BLOOD SCREEN W/REFLEX TITER [...] indicated. For additional information, please refer to http://education.ProjectSpeaker/faq/TTN616 (This link is being provided for informational/ educational purposes only.) Test Performed at: [facility] [address] [place] [address] WESLEY ARAUJO DO,MPH Blood BLOOD SPECIMEN / Unknown 05/15/2020 05/15/2020 3:20 PM DOBIE WORKER Garrick Farley MD LAB - CHEMISTRY TOSHIA POPE Performing Organization Address [facility] de Phone Number [address] [address] * (ABNORMAL) SS-A/SS-B (SJOGREN'S) ANTIBODY PANEL (05/15/2020) Only the most recent of2 resultswithin the time period is included. Sjogren's Antibodies (SSA) >8.0 POS(A) <1.0 NEG AI [facility] Sjogren's Antibodies (SSB) <1.0 NEG <1.0 NEG AI [facility] Comment: Test Performed at: [facility] [address] [address] WESLEY ARAUJO DO,MPH Blood BLOOD SPECIMEN / Unknown 05/15/2020 05/15/2020 3:20 PM DOBIE WORKER Garrick Farley MD LAB - CHEMISTRY TOSHIA POPE Performing Organization Address [facility] Co de Phone Number [address] [address] * RIBOSOMAL P PROTEIN ANTIBODY (05/15/2020) Only the most recent of5 resultswithin the time period is included. Ribosomal P Protein Antibody <1.0 NEG <1.0 NEG AI [facility] Comment: Test Performed at: [facility] [address] [address] WESLEY ARAUJO DO,MPH Blood BLOOD SPECIMEN / Unknown 05/15/2020 05/15/2020 3:20 PM DOBIE WORKER Garrick Farley MD LAB - CHEMISTRY TOSHIA POPE Performing Organization Address [facility] Co de Phone Number [facility] [address] [place] [address] * (ABNORMAL) COMPLEMENT C3 C4 PANEL (05/15/2020) Complement C3 91 83 - 193 mg/dL [facility] Complement C4 9(L) 15 - 57 mg/dL [facility] Comment: Test Performed at: [facility] [address] [place] [address] WESLEY ARAUJO DO,MPH Blood BLOOD SPECIMEN / Unknown 05/15/2020 05/15/2020 3:20 PM DOBIE WORKER Garrick Farley MD LAB - CHEMISTRY TOSHIA POPE Performing Organization Address [facility] Co de Phone Number [facility] [address] [place] [address] * CT ABDOMEN PELVIS W CONTRAST (04/01/2019 4:57 PM DOBIE WORKER) Only the most recent of5 resultswithin the time period is included. Anatomical Region Laterality Modality Abdomen, Pelvis Computed Tomogra phy 04/01/2019 5:15 PM DOBIE WORKER Impressions 04/02/2019 8:45 AM DOBIE WORKER IMPRESSION: 1. 3.5 x 2.7 x 3.9 [...] evaluation. Dictated by Tone Johnson DO (residential life director). I, Dr. PENELOPE JOY M.D. have personally reviewed and interpreted this examination/study. This report was electronically signed by PENELOPE JOY M.D. on 04/02/2019 8:45 AM . Narrative 04/02/2019 8:45 AM DOBIE WORKER EXAMINATION: Computed tomography (CT) of the abdomen [...] evaluation. Dictated by Tone Johnson DO (residential life director). I, Dr. PENELOPE JOY M.D. have personally reviewed and interpreted this examination/study. This report was electronically signed by PENELOPE JOY M.D. on04/02/2019 8:45 AM . Tad Lyons MD CT ORDERABLES * HCG URINE QUALITATIVE - POINT OF CARE (04/01/2019 2:32 PM DOBIE WORKER) HCG Qual Urine Negative Negative [facility] P OCT TESTING QC Verified Yes Yes [facility] POCT TESTING Urine URINE / Unknown 04/01/2019 2 :32 PM DOBIE WORKER Nusrat Alegre APRN-GUIDE CHANGER LAB - POINT OF CAR E ORDERABLES [facility] POCT TESTING [address] [phone] * SKIN TEST PPD - POINT OF [...] provider. Scanned Document SCANNING ONLY * (ABNORMAL) WEATHERIZATION CREW LEADER ANTIBODY (12/05/2017 2:23 PM CDT) Only the most recent of6 resultswithin the time period is included. WEATHERIZATION CREW LEADER Antibody 6.6 POS(A) <1.0 NEG AI [facility] Comment: Test Performed at: [facility] [address] [place] [address] WESLEY ARAUJO DO,MPH Blood BLOOD SPECIMEN / Unknown 12/05/2017 2:23 PM CDT 12/05/2017 2:25 PM CDT Jana Saenz DO LAB - CHEMISTRY TOSHIA POPE [facility] [id number] [place] [address] * SS-B (SJOGRENS'S) ANTIBODY (12/05/2017 2:23 PM CDT) Only the most recent of5 resultswithin the time period is included. Sjogren's Antibodies (SSB) <1.0 NEG <1.0 NEG [facility] Comment: REPORT COMMENT: FASTING:NO Test Performed at: [facility] [address] [address] WESLEY ARAUJO DO,MPH Blood BLOOD SPECIMEN / Unknown 12/05/2017 2:23 PM CDT 12/05/2017 2:25 PM CDT Jana Chaudharigail [facility] - CHEMISTRY TOSHIA POPE Performing Organization Address [facility] [place] [address] * (ABNORMAL) SS-A (SJOGREN'S) ANTIBODY (12/05/2017 2:23 PM CDT) Only the most recent of5 resultswithin the time period is included. Sjogren's Antibodies (SSA) >8.0 POS(A) <1.0 NEG [facility] Comment: Test Performed at: [place] [address] EWSLEY ARAUJO DO,MPH Blood BLOOD SPECIMEN / Unknown 12/05/2017 2:23 PM CDT 12/05/2017 2:25 PM CDT Jana Chaudharigail [facility] - CHEMISTRY TOSHIA POPE Performing Organization Address [facility] [place] [address] * MONITOR STRIP (10/27/2017 9:45 AM CDT) [...] ORDER HEATHER [facility] REF LAB NON INTERF [address] [place] [address] * NEURAXIAL BLOCK (09/29/2017 10:53 AM CDT) Narrative Tiera Capps MD - 09/29/2017 10:53 AM CDT Pat Hirsch APRN-MANAGER OB 09/28/2017 2:30 AM Neuraxial Block Note Procedure [...] - 7.40 pH 09/29/2017 6:54 AM T [facility] pCO2 Cord Venous POCT 35 35 - 45 mmHg 09/29/2017 6:54 AM [facility] pO2 Cord Venous POCT 28 22 - 33 mmHg 09/29/2017 6:54 AM CDT [facility] HCO3 Cord Arterial POCT 17(L) 22 - 24 mmol/L 09/29/2017 6:54 AM T [facility] BE Cord Venous POCT Calc -9(L) -6.4 - 1.6 mmol/L 09/29/2017 6:54 AM T [facility] TCO2 Cord Venous POCT 18(L) 22 - 30 mmol/L 09/29/2017 6:54 AM [facility] O2 Saturation % Cord Venous Calc POCT 47 % 09/29/2017 6:54 AM CDT [facility] Site CORD SEVERIANO 09/29/2017 6:54 AM T [facility] Sample iSTAT CORD V 09/29/2017 6:54 AM [facility] Blood CORD BLOOD SPECIMEN / Unknown 09/29/2017 6:00 AM CDT 09/29/2017 6:54 AM CDT Garrick Farley MD LAB - POINT OF CARE ORDERABLES [facility] [address] [place] [address] * PREPARE (CROSSMATCH) RBC UNIT(S), 2 Units (09/28/2017 7:45 PM CDT) Product Code [id number] [facility] Unit Donor # [id number] S [facility] BLO[facility] B[facility] LAB ABO Donor Type A [facility] Rh Type Unit NEG [facility] Unit Status Ret'd HC BLO OD BANK LAB ABO Rh Type Unit ANEG [facility] Donor Unit Expiration Date [facility] Blood Type Barcode 0600 [facility] Product Code [id number] [facility] Unit Donor # [id number] S [facility] BLOOD [facility]ANK LAB ABO Donor Type A [facility] Rh Type Unit NEG [facility] BL OOD BANK LAB Unit Status Ret'd HC BLO OD BANK LAB ABO Rh Type Unit ANEG [facility] Donor Unit Expiration Date [facility] Blood Type Barcode 0600 [facility] Product Code [id number] [facility] Unit Donor # [id number] S [facility] BLOOD BANK LAB ABO Donor Type A [facility] Rh Type Unit NEG HC BL OOD BANK LAB Unit Status Ret'd [facility] B[facility] OD [facility]ANK LAB ABO Rh Type Unit ANEG [facility] Donor Unit Expiration Date [facility] Blood Type Barcode 0600 [facility] Blood Bank BLOOD SPECIMEN / Unknown 09/28/2017 7:45 PM CDT Wesley Buck MD LAB - BLOOD BANK ORD ERABLES [facility] [address] [phone] * [place] BIOPHYSICAL PROFILE, US OB LIMITED (09/27/2017 10:20 AM CDT) Anatomical Region Laterality Modality Abdomen, Pelvis Ultrasound Narrative 09/27/2017 10:20 AM CDT Alpa Fernandes 09/27/2017 10:20 AM Ready in [employer]. Alpa Fernandes Maile Mclain MD US ORDERABLES * IL SONO FU OR REPEAT, US BIOPHYSICAL PROFILE [...] Comment: STREPTOCOCCUS, GROUP B CULTURE MICRO NUMBER: [id number] TEST STATUS: FINAL SPECIMEN SOURCE: ANORECTUM/VAGINA SPECIMEN QUALITY: ADEQUATE RESULT: No group B Streptococcus isolated Note per CDC guidelines optimal recovery is achieved by swabbing both the lower vagina and rectum (through the anal sphincter). Test Performed at: [facility] [address] LUNA BARRAZA MD Microbiology MISCELLANEOUS SAMPLES / Unknown 09/20/2017 9:00 AM CDT 09/21/2017 3:09 AM CDT Cami Mendoza MD LAB - M ICROBIOLOGY ORDERABLES [address] [address] * MONITOR STRIP (09/15/2017 12:34 PM CDT) [...] MICROALBUMIN URINE RANDOM (09/05/2017 2:01 PM CDT) [facility] Signature Microalbumin Urine 0.7 mg/dL [facility] Comment: [...] diagnostic category. REPORT COMMENT: SPLIT 09/05/2017 FROM [id number] Test Performed at: [facility] [address] [place] [address] WESLEY ARAUJO DO,MPH Urine URINE SPECIMEN OBTAINED BY CLEAN CATCH PROCEDURE / Unknown 09/05/2017 2:01 PM CDT 09/05/2017 2:01 PM CDT Cami Mehta MD LAB - URINE CHEMI STRY ORDERABLES [facility] [address] [place] [address] * (ABNORMAL) COMPLEMENT TOTAL (09/05/2017 11:59 AM CDT) Only the most recent of6 resultswithin the time period is included. Complement Total CH50 >60(H) 31 - 60 U/mL [facility] Comment: REPORT COMMENT: PATIENT UNABLE TO VOID; ADVISED TO RETURN FOR COLLECTION. Test Performed at: [facility] [address] [place] [address] WESLEY ARAUJO DO,MPH Blood BLOOD SPECIMEN / Unknown 09/05/2017 11:59 AM CDT 09/05/2017 12:05 PM CDT Cami Mehta MD LAB - CHEMISTRY O RDERABLES [facility] [address] [place] [address] * MONITOR STRIP (08/28/2017 9:37 AM CDT) Narrative 08/28/2017 9:37 AM CDT Ordered by an unspecified provider. Scanned Document SCANNING ONLY * MONITOR STRIP (08/24/2017 12:39 PM CDT) Narrative 08/24/2017 12:39 PM CDT Ordered by an unspecified provider. Scanned Document SCANNING ONLY * IL SONO FU OR REPEAT, IL SONO HEART F/U (08/23/2017 3:22 PM CDT) [...] Mclain MD PROCEDURE/MINOR SURG ICAL ORDERABLES * IL OB US, LIMITED, FETUS(S) (07/17/2017 2:09 PM [...] 4th Generation NON-REACT JAVAD NON-REACT JAVAD [facility] ([facility]) Comment: HIV-1 antigen and HIV-1/HIV-2 antibodies were [...] purpose. For additional information please refer to http://education.ProNerve/faq/DNH747 (This link is being provided for informational/ educational purposes only.) The performance of this assay has not been clinically validated in patients less than 2 years old. Test Performed at: [facility] [address] [place] [address] WESLEY ARAUJO DO,MPH 07/12/2017 10:3 4 AM CDT 07/12/2017 10:35 AM CDT Nicolas Soto MD LAB - HEMATOLOGY ORD ERABLES Performing Organization Address [facility] Co de Phone Number [facility] ([facility]) [address] * RPR W REFLEX CONFIRM (07/12/2017 10:34 AM CDT) RPR NON-REACTI VE NON-REACT JAVAD [facility] ([facility]) Comment: REPORT COMMENT: PREFERRED LAB:->[facility] FASTING:YES Test Performed at: [facility] [address] [place] [address] WESLEY ARAUJO DO,MPH 07/12/2017 10:3 4 AM CDT 07/12/2017 10:35 AM CDT Nicolas Soto MD LAB - CHEMISTRY ORDE RABYVONNE Performing Organization Address [facility] Co de Phone Number [facility] ([facility]) [address] * ECHO CONSULT - (06/19/2017 10:14 AM CDT) 06/19/2017 10:1 4 AM CDT Narrative Procedure Note Mela Yeh MD - 06/19/2017 [facility] [place] [phone] Fax Echocardiogram Report Pat.Name: THALIA ESPOSITO Pat.ID: [id number] .Date: 06/19/2017 Exam Time: 10:14:00 AM Study Type: Echo Age: 2 1990,27Y Sex: FEMALE Sonogrphr: NARCISO Alonso. Stat.:Outpatient Reason for Study: arrhythmia Visit ID: [id number] SUMMARY: Study Data: GA: 22/3 weeks. NATANAEL: 10/20/2017 . : 1. Para: 0. Type: Corado. Lie: Vertex. Impression: The echocardiogram was within normal limits; however small atrial and ventricular septal defects and persistent ductus arteriosus cannot be excluded as findings. IL interval average 126 msec, 50th percentile norm [...] m/s Pulmonic Valve PV pkVel -0.8 m/s IL Interval IL Interval 137 ms Signed 06/19/2017 11:52 AM Mela Yeh MD Mela Yeh MD ECHO ORDERABLE S Performing Organization Address City/[facility]/ZIP Co de Phone Number [facility] [address] [place] [address] * PATHOLOGY/GENETICS HISTORICAL-ONBASE (06/06/2017) 06/06/2017 Historical Provider LAB - CHEMISTRY O RDERABLES Performing Organization Address City/[facility]/ZIP Co de Phone Number [facility] [address] [place] [address], [facility] * FUNGUS MARION - POINT OF CARE (AMB) [facility] (06/06/2017) MARION Prep positive [facility] Comment:budding paeudohyphae Vaginal swab (specimen) 06/06/2017 Oriana Stringer MD LAB - POINT OF CARE ORDERABLES Performing Organization Address [facility]/ZIP Co de Phone Number [facility] [address] [place] [address], [facility] * PAP IMAGE-GUIDED LIQUID BASE W HPV (06/06/2017 12:00 AM DOBIE WORKER) Pap Image-Guided Liquid-Based with HPV Accession No: [id number] Specimen:Endocervi betito ThinPrep Slides:1 SPECIMEN ADEQUACY: SATISFACTORY [...] by Starr SOTO (ASCP). Electronically signed 06/07/2017 [facility] Endocervical 06/06/2017 06/07/2017 11:41 AM DOBIE WORKER Oriana Stringer MD LAB - PATHOLOG Y/CYTOLOGY ORDERABLES Performing Organization Address [facility]/ZIP Co de Phone Number [facility] [address] [phone] * ALPHA FETOPROTEIN BLOOD MATERNAL QUAD PANEL (05/29/2017 1:44 PM DOBIE WORKER) Interpretation [facility] ([facility]) Comment: Screen negative for [...] assistance with recalculations, please call your local [facility] laboratory. For assistance with interpretation of these results, please contact your local [facility] genetic counselor or call [phone]). Interpretive Cut-offs Screen Positive For Open NTD: [...] 10/20/17; PATIENT WEIGHT->162; * Test Performed at: [facility] [address] [place] [address] WESLEY ARAUJO DO,MPH 05/29/2017 1:44 PM DOBIE WORKER 05/29/2017 1:46 PM DOBIE WORKER Narrative [facility] ([facility]) - 05/30/2017 1:00 PM DOBIE WORKER Gestational Age->16 EDC 10/20/17 Patient Weight->162 lb Date Gestational Age Calculated?->05/09/17 NATANAEL Determined by->Ultrasound Mother's Ethnic Origin->Caucasion Number of Fetuses->1 Insulin Dependent Diabetic Mellitus->No Repeat Specimen?->No Family History of Neural Tube Defect->No Previous history of Down Syndrome?->No Donor Egg->No Garrick Farley MD LAB - CHEMISTRY TOSHIA POPE [facility] ([facility]) [address] * (ABNORMAL) PROTEIN CREATININE RATIO URINE TIMED PNL (05/29/2017 1:40 PM DOBIE WORKER) Creatinine 24 Hour Urine 1.48 0.63 - 2.50 g/24 h [facility] ([facility]) Protein 24 Hour Urine 104(H) < OR = 84 mg/g creat [facility] ([facility]) Protein 24 Hour Urine 154(H) <150 mg/24 h [facility] ([facility]) Comment: TOTAL URINE VOLUME: 700/24 Test Performed at: [facility] [place] [address] WESLEY ARAUJO DO,MPH Urine specimen (specimen) 05/29/2017 1:40 PM DOBIE WORKER 05/29/2017 1:42 PM DOBIE WORKER Garrick Farley MD LAB - URINE CHEMISTR Y ORDERABLES Performing Organization Address [facility] Co de Phone Number [facility] ([facility]) [address] * (ABNORMAL) CREATININE CLEARANCE URINE TIMED + BLOOD (05/29/2017 1:40 PM DOBIE WORKER) Only the most recent of2 resultswithin the [...] 162 [facility] ([facility]) Comment: Test Performed at: [facility] [address] [place] [address] WESLEY ARAUJO DO,MPH Urine specimen (specimen) URINE SPECIMEN OBTAINED BY CLEAN CATCH PROCEDURE / Unknown 05/29/2017 1:40 PM DOBIE WORKER 05/29/2017 1:42 PM DOBIE WORKER Narrative [facility] ([facility]) - 05/31/2017 3:00 PM DOBIE WORKER Height (inches)->62 Weight (lbs)->162 Garrick Farley MD LAB - URINE CHEMISTR Y ORDERABLES Performing Organization Address [facility]/ZIP Co de Phone Number [facility] ([facility]) [address] * CHLAMYDIA+GC DAT PAP VIAL (05/10/2017 12:27 PM DOBIE WORKER) Chlamydia trachomatis RNA TMA NOT DETECTED NOT DETECTED [facility] ([facility]) Neisseria gonorrhoeae RNA TMA NOT DETECTED NOT DETECTED [facility] ([facility]) See Note [facility] ([facility]) Comment: This test was performed using the APTIMA COMBO2 Assay ([employer] The analytical performance characteristics of this assay, when used to test SurePath specimens have been determined by [facility]. Test Performed at: [facility] [address] [facility] [place] [address] WESLEY ARAUJO DO,MPH 05/10/2017 12:2 7 PM DOBIE WORKER 05/11/2017 12:39 AM DOBIE WORKER Garrick Farley MD LAB - MICROBIOLOGY O RDERABLES Performing Organization Address City/[facility]/ZIP Co de Phone Number [facility] ([facility]) [address] [place] [address] * DNA ANTIBODY DS CRITHIDIA IFA (04/26/2017 1:43 PM DOBIE WORKER) Only the most recent of8 resultswithin the time period is included. dsDNA Antibody Crithidia IFA NEGATIVE NEGATIVE [facility] ([facility]) Comment: REPORT COMMENT: STANDING ORDER FOR 6 MONTHS, EVERY 2-6 WEEKS; COPY TO PCP, P Test Performed at: [facility] [address] [place] [address] SONAM WAHL MD PHD 04/26/2017 1:43 PM DOBIE WORKER 04/26/2017 1:43 PM DOBIE WORKER Bob Varma MD LAB - SEROLOGY ORDER HEATHER Performing Organization Address [facility] Co de Phone Number [facility] ([facility]) [address] [place] [address] * TRANSFERRIN (05/08/2016 6:20 AM DOBIE WORKER) Only the most recent of5 resultswithin the time period is included. Transferrin 267 174 - 382 mg/dL [facility] Transferrin Saturation % 16 16 - 50 % [facility] Blood specimen (specimen) BLOOD SPECIMEN / Unknown 05/08/2016 6:20 AM DOBIE WORKER 05/08/2016 6:54 AM DOBIE WORKER Trudy Patel MD LAB - CHEMISTRY TOSHIA POPE Performing Organization Address City/[facility]/ZIP Co de Phone Number [facility] [address] [place] [address] * IRON BLOOD (05/08/2016 6:20 AM DOBIE WORKER) Only the most recent of2 resultswithin the time period is included. Iron 52 40 - 150 mcg/dL [facility] Blood specimen (specimen) BLOOD SPECIMEN / Unknown 05/08/2016 6:20 AM DOBIE WORKER 05/08/2016 6:54 AM DOBIE WORKER Trudy Patel MD LAB - CHEMISTRY TOSHIA POPE Performing Organization Address [facility] Co de Phone Number [address] [phone] * FERRITIN (05/08/2016 6:20 AM DOBIE WORKER) Only the most recent of2 resultswithin the time period is included. Ferritin 55 13 - 204 ng/mL [facility] Blood specimen (specimen) BLOOD SPECIMEN / Unknown 05/08/2016 6:20 AM DOBIE WORKER 05/08/2016 6:54 AM DOBIE WORKER Trudy Patel MD LAB - CHEMISTRY TOSHIA POPE Performing Organization Address [facility] Co de Phone Number [address] [phone] * HCG URINE QUALITATIVE - POCT (IP) [facility] (05/07/2016 5:37 PM DOBIE WORKER) Only the most recent of7 resultswithin the time period is included. Pathologist [facility] Test Urine negative [facility] Urine specimen (specimen) 05/07/2016 5:37 PM DOBIE WORKER Norma Devine MD LAB - POINT OF CARE ORDERABLES Performing Organization Address [facility] Co de Phone Number [facility] * (ABNORMAL) DNA (DS) ANTIBODY RFLEX IFA (01/18/2016 2:33 PM CDT) Only the most recent of3 resultswithin the time period is included. Pathologist [facility] dsDNA Antibody 78(H) 0 - 29 IU/mL [facility] Comment: dsDNA Antibody Numeric Result Interpretation: 0 - 29 IU/mL: Negative 30 - 75 IU/mL: Borderline >75 IU/mL: Positive Blood specimen (specimen) BLOOD SPECIMEN / Unknown 01/18/2016 2:33 PM CDT 01/18/2016 3:34 PM CDT Bob Varma MD LAB - SEROLOGY ORDER HEATHER Performing Organization Address City/[facility] Co de Phone Number [facility] [address] [place] [address] * DNA ANTIBODY DS CRITHIDIA TITER (01/18/2016 2:33 PM CDT) Only the most recent of6 resultswithin the time period is included. dsDNA Antibody IgG IFA <1:10 <1:10 [facility] [employer] LAB (BEAKER) Comment: INTERPRETIVE INFORMATION: Double-Stranded DNA [...] recommendations for testing may be found at [email or web address] ndex.[email or web address]. Performed by [facility], [address] [place] [id number] www.[employer], Piyush Rabago MD, Lab. Director Blood specimen (specimen) BLOOD SPECIMEN / Unknown 01/18/2016 2:33 PM CDT 01/20/2016 8:44 AM CDT Bob Varma MD LAB - SEROLOGY ORDER HEATHER Performing Organization Address City/[facility]/ZIP Co de Phone Number [facility] (NERI) * (ABNORMAL) LUPUS ERYTHEMATOSUS PANEL (12/03/2015 12:32 PM CDT) JEAN-PAUL Screen POSITIVE( A) NEGATIVE [facility] ([facility]) dsDNA Antibody 17(H) IU/mL [facility] ([facility]) Comment: IU/mL Interpretation < or = 4 Negative 5-9 Indeterminate > or = 10 Positive Sjogren's Antibodies (SSA) 6.8 POS(A) <1.0 NEG AI [facility] ([facility]) Sjogren's Antibodies (SSB) <1.0 NEG <1.0 NEG AI [facility] ([facility]) KARTHIKEYAN Rogers (SM) Antibody <1.0 NEG <1.0 NEG AI [facility] ([facility]) KARTHIKEYAN WEATHERIZATION CREW LEADER Antibody 8.0 POS(A) <1.0 NEG AI [facility] ([facility]) Chromatin Nucleosomal 7.5 POS(A) <1.0 NEG AI [facility] ([facility]) Complement C3 101 90 - 180 mg/dL [facility] ([facility]) Complement C4 10(L) 16 - 47 mg/dL [facility] ([facility]) Complement Total CH50 53 31 - 60 U/mL [facility] ([facility]) Comment: Test Performed at: [facility] [address] [place] [address] WESLEY ARAUJO DO,MPH 12/03/2015 12:3 2 PM CDT 12/03/2015 12:37 PM CDT Bob Varma MD LAB - SEROLOGY ORDER HEATHER Performing Organization Address [facility]/ZIP Co de Phone Number [facility]) * (ABNORMAL) JEAN-PAUL W/REFLEX IFA PATTERN (03/31/2015 4:54 PM DOBIE WORKER) JEAN-PAUL Positive(A ) None Detected [facility] Blood specimen (specimen) BLOOD SPECIMEN / Unknown 03/31/2015 4:54 PM DOBIE WORKER 03/31/2015 5:21 PM DOBIE WORKER Bob Varma MD LAB - SEROLOGY ORDER HEATHER [facility] [address] [phone] * BETA-2 GLYCOPROTEIN 1 ANTIBODY IGG (03/31/2015 4:54 PM DOBIE WORKER) Only the most recent of2 resultswithin the time period is included. Beta-2 Glycoprotein I Antibody IgG <20.0 <20.0 [facility] Blood specimen (specimen) BLOOD SPECIMEN / Unknown 03/31/2015 4:54 PM DOBIE WORKER 03/31/2015 5:20 PM DOBIE WORKER Bob Varma MD LAB - SEROLOGY ORDER HEATHER Performing Organization Address City/[facility]/ZIP Co de Phone Number [address] [phone] * BETA-2 GLYCOPROTEIN 1 ANTIBODY IGM (03/31/2015 4:54 PM DOBIE WORKER) Only the most recent of2 resultswithin the time period is included. Pathologist [facility] Beta-2 Glycoprotein Antibody IgM <20.0 <20.0 [facility] Blood specimen (specimen) BLOOD SPECIMEN / Unknown 03/31/2015 4:54 PM DOBIE WORKER 03/31/2015 5:20 PM DOBIE WORKER Bob Varma MD LAB - SEROLOGY ORDER HEATHER Performing Organization Address City/[facility]/ZIP Co de Phone Number [address] [phone] * QUANTIFERON TB-GOLD INC (03/31/2015 4:54 PM DOBIE WORKER) Pathologist [facility] QuantiFERON TB Gold Negative Negative [facility] (BE[employer]a) Comment: The specimen received for QuantiFERON testing was incubated by the ordering institution. Specific procedures outlined in our Directory of Services and in the package insert for the QuantiFERON Gold (In Tube) test must be followed to enable for proper stimulation of cells for the production of interferon gamma. QuantiFERON Criteria Comment [facility] (BEAKER) Comment: To be considered positive [...] values. QuantiFERON TB Antigen Value 0.07 IU/mL [facility] ([facility]) QuantiFERON Nil Value 0.06 IU/mL [facility] ([facility]) QuantiFERON Mitogen Value 5.02 IU/mL [facility] ([facility]) QFT TB Ag minus Nil Value 0.01 IU/mL [facility] ([facility]) Interpretation Comment [facility] ([facility]) Comment: The QuantiFERON TB Gold (in Tube) [...] BLOOD SPECIMEN / Unknown 03/31/2015 4:54 PM DOBIE WORKER 03/31/2015 5:19 [address] WORK[address] [facility] ([facility]) - 04/03/2015 6:09 AM DOBIE WORKER Performed at: [address] [place] [address] [id number] Digital Asset Coordinator: Get Oglesby PhD, Phone: [phone] Bob Varma MD LAB - SEROLOGY ORDER HEATHER Performing Organization Address [facility] Co de Phone Number [facility]) * CARDIOLIPIN ANTIBODY IGA (03/31/2015 4:54 PM DOBIE WORKER) Only the most recent of2 resultswithin the time period is included. Anticardiolipin Antibody IgA <15.0 <15.0 [facility] Blood specimen (specimen) BLOOD SPECIMEN / Unknown 03/31/2015 4:54 PM DOBIE WORKER 03/31/2015 5:20 PM DOBIE WORKER Bob Varma MD LAB - SEROLOGY ORDER HEATHER Performing Organization Address City/[facility]/ZIP Co de Phone Number [address] [phone] * CARDIOLIPIN ANTIBODY IGM (03/31/2015 4:54 PM DOBIE WORKER) Only the most recent of2 resultswithin the time period is included. Anticardiolipin Antibody IgM <15.0 <15.0 [facility] Blood specimen (specimen) BLOOD SPECIMEN / Unknown 03/31/2015 4:54 PM DOBIE WORKER 03/31/2015 5:20 PM DOBIE WORKER Bob Varma MD LAB - SEROLOGY ORDER HEATHER Performing Organization Address [facility] [place]/[facility] Co de Phone Number [address] [phone] * CARDIOLIPIN ANTIBODY IGG (03/31/2015 4:54 PM DOBIE WORKER) Only the most recent of2 resultswithin the time period is included. Anticardiolipin Antibody IgG <15.0 <15.0 GPL [facility] Blood specimen (specimen) BLOOD SPECIMEN / Unknown 03/31/2015 4:54 PM DOBIE WORKER 03/31/2015 5:20 PM DOBIE WORKER Bob Varma MD LAB - SEROLOGY ORDER HEATHER Performing Organization Address [facility] Co de Phone Number [address] [phone] * (ABNORMAL) HISTONE ANTIBODY (03/31/2015 4:54 PM DOBIE WORKER) Only the most recent of2 resultswithin the time period is included. Anti-Histone Antibody 5.4(H) 0.0 - 0.9 Units [facility] (BEAKER) Comment: Negative <1.0 Weak Positive 1.0 - 1.5 Moderate Positive 1.6 - 2.5 Strong Positive >2.5 Blood specimen (specimen) BLOOD SPECIMEN / Unknown 03/31/2015 4:54 PM DOBIE WORKER 03/31/2015 5:20 PM DOBIE WORKER Narrative [facility] (NERI) - 04/07/2015 1:14 PM DOBIE WORKER Performed at: [address] [place] [address] [id number] Digital Asset Coordinator: Wesley Mercer MD, Phone: [phone] Bob Varma MD LAB - CHEMISTRY TOSHIA ALVINOYVONNE Performing Organization Address City/[facility]/ZIP Co de Phone Number [facility] (NERI) * SCLERODERMA 70 (SCL) ANTIBODY (03/31/2015 4:54 PM DOBIE WORKER) Only the most recent of4 resultswithin the time period is included. Pathologist [facility] SCL-70 Antibody 2.1 0.0 - 19.9 Units [facility] Comment: KARTHIKEYAN Antibody Numeric Result Interpretation: <20.0 Units: Negative 20.0 - 39.0 Units: Weakly Positive >39.0 Units: Positive Blood specimen (specimen) BLOOD SPECIMEN / Unknown 03/31/2015 4:54 PM DOBIE WORKER 03/31/2015 5:21 PM DOBIE WORKER Bob Varma MD LAB - CHEMISTRY TOSHIA POPE Performing Organization Address City/[facility]/ZIP Co de Phone Number [address] [phone] * (ABNORMAL) TY STAINING PATTERNS REFLEXED (03/31/2015 4:54 PM DOBIE WORKER) Pathologist [facility] Homogeneous Pattern 1:1280(H) [facility] ([facility]) Note Comment [facility] Blood specimen (specimen) BLOOD SPECIMEN / Unknown 03/31/2015 4:54 PM DOBIE WORKER 04/01/2015 10:22 AM DOBIE WORKER [address] [facility] ([facility]) - 04/02/2015 3:12 PM DOBIE WORKER A positive JEAN-PAUL result may occur in healthy individuals or be associated with a variety of diseases. See interpre- tation below: Pattern Antigen Detected Suggested Disease Association Homogeneous DNA(ds,ss,), High titers - SLE (Smooth) Histone Speckled Sm, WEATHERIZATION CREW LEADER, SCL-70, SLE,MCTD,Scleroderma,Sjogrens SS-A/SS-B Nucleolar SCL-70, PM-1/SCL High titers Scleroderma Poly- myositis/Scleroderma Overlap Centromere Centromere PSS w/Crest syndrome variable Bob Varma MD LAB - PATHOLOGY/CYTO LOGY ORDERABLES [facility] ([place]I) * US TRANSVAGINAL NON OB (03/25/2015 4:07 PM DOBIE WORKER) Anatomical Region Laterality Modality Abdomen Other Impressions 03/26/2015 3:04 PM DOBIE WORKER IMPRESSION: 1. No evidence of ovarian torsion. [...] 3:04 PM . Narrative 03/26/2015 3:04 PM DOBIE WORKER EXAMINATION: 1. Transabdominal ultrasound of the pelvis [...] * US PELVIS COMPLETE (03/25/2015 4:07 PM DOBIE WORKER) Anatomical Region Laterality Modality Pelvis Other Impressions 03/26/2015 3:04 PM DOBIE WORKER IMPRESSION: 1. No evidence of ovarian torsion. [...] 3:04 PM . Narrative 03/26/2015 3:04 PM DOBIE WORKER EXAMINATION: 1. Transabdominal ultrasound of the pelvis [...] ABDOMEN PELVIS WO CONTRAST (03/25/2015 1:46 PM DOBIE WORKER) Only the most recent of3 resultswithin the time period is included. Anatomical Region Laterality Modality Abdomen, Pelvis Other Impressions 03/25/2015 2:37 PM DOBIE WORKER IMPRESSION: 1. Minimal fat stranding adjacent to [...] weeks. Report dictated by Timur Tanner M.D. (Clothing Cutter) Dr. INEZ Gregg M.D. have personally reviewed and interpreted this examination/study. This report was electronically signed by INEZ LEUNG M.D. on 03/25/2015 2:37 PM . Narrative 03/25/2015 2:37 PM DOBIE WORKER EXAMINATION: Computed tomography (CT) of the abdomen [...] weeks. Report dictated by Timur Tanner M.D. (Clothing Cutter) I, Dr. INEZ LEUNG M.D. have personally reviewed and interpreted thisexamination/study. This report was electronically signed by INEZ LEUNG M.D. on 03/25/20152:37 PM . Sesar A Perlita DO CT ORDERABLES * (ABNORMAL) DRUG ABUSE PANEL 10-20+ETHANOL URINE NO CONFIRM (03/25/2015 1:03 PM DOBIE WORKER) Amphetamines Screen Urine Negative Negative : < 1000 ng/mL [facility] Barbiturates Screen Urine Negative Negative : < 200 ng/mL [facility] Benzodiazepine Screen Urine Negative Negative : < 200 ng/mL [facility] Opiates Urine Negative Negative : < 300 ng/mL [facility] Cocaine Metabolites Urine Negative Negative : < 300 ng/mL [facility] Phencyclidine Screen Urine Negative Negative : < 25 ng/ml [facility] Cannabinoids Screen Urine Positive(A) Negative : <50 ng/mL [facility] Comment: Positive urine cannabinoids (THC) screening results should be confirmed by another generally accepted non-immunological method such as gas chromatography or mass spectrometry. Methadone Screen Urine Negative Negative : < 300 ng/mL [facility] Urine specimen (specimen) 03/25/2015 1:03 PM DOBIE WORKER 03/25/2015 1:07 PM DOBIE WORKER Narrative [facility] - 03/25/2015 1:36 PM DOBIE WORKER The Urine Toxicology Screening Panel does not screen for Propoxyphene, Meprobamate, Carisoprodol, Trazodone, obnf-iyb-qjeflcb medications and/or volatiles (Acetone, Isopropanol, Methanol or Ethylene Glycol). Ethanol, Salicylate, Acetaminophen, Tricyclic Antidepressants and several therapeutic drugs may be individually assayed in serum or plasma specimen. Toxicology testing by the [facility] is an aid to medical diagnosis and treatment of patients. No documented chain of custody was maintained. Results are intended to be used for clinical purposes only. Sesar Bhat DO LAB - URINE CHEMISTR Y ORDERABLES Performing Organization Address City/[facility]/ZIP Co de Phone Number [address] [phone] * CULTURE BLOOD (08/22/2014 12:05 AM CDT) Only the most recent of15 resultswithin the time period is included. Culture Blood No Growth at 5 days [facility] Blood specimen (specimen) BLOOD SPECIMEN / Unknown 08/22/2014 12:05 AM CDT 08/22/2014 12:15 AM CDT Narrative [facility] - 08/27/2014 12:30 AM CDT Specimen Type->Blood Radha Gillette MD LAB - MICROBIOLOGY O RDERABLES Performing Organization Address City/[facility]/ZIP Co de Phone Number [address] [phone] * CULTURE STOOL+ E COLI SHIGA-LIKE TOXIN (08/21/2014 4:10 PM CDT) Culture Feces No Salmonella, Shigella, Yersinia, Campylobacter or Escherichia Coli 0157:H7 isolated. Negative for Shiga Toxin by Immunoassay. [facility] Stool specimen (specimen) STOOL SPECIMEN / Unknown 08/21/2014 4:10 PM CDT 08/21/2014 4:34 PM CDT Narrative [facility] - 08/24/2014 2:45 PM CDT Specimen Type->Stool Radha Gillette MD LAB - MICROBIOLOGY O RDERABLES Performing Organization Address [facility]/ZIP Co de Phone Number [address] [phone] * [facility] + TOXIN A+B (08/21/2014 4:10 PM CDT) Only the most recent of4 resultswithin the time period is included. C difficile Antigen Negative Negative [facility] C difficile Toxin Negative Negative [facility] Stool specimen (specimen) STOOL SPECIMEN / Unknown 08/21/2014 4:10 PM CDT 08/21/2014 4:34 PM CDT Narrative [facility] - 08/21/2014 6:01 PM CDT Specimen Type->Stool Radha Gillette MD LAB - MICROBIOLOGY O RDNAVA Performing Organization Address [facility] Co de Phone Number [address] [phone] * LACTOFERRIN FECAL QUALITATIVE (08/21/2014 4:10 PM CDT) Lactoferrin Fecal Negative Negative [facility] (BEAKER) Comment: A negative result does not exclude the presence of intestinal inflammation. Stool specimen (specimen) STOOL SPECIMEN / Unknown 08/21/2014 4:10 PM CDT 08/21/2014 4:22 PM CDT Radha Gillette MD LAB - BODY FLUID ORD ERABLES Performing Organization Address City/[facility]/ZIP Co de Phone Number [facility] (BEAKER) * CK + CKMB PANEL (08/21/2014 1:00 AM CDT) Only the most recent of3 resultswithin the time period is included. CK Total 36 30 - 200 Units/L [facility] CK-MB 0.5 0.0 - 6.6 ng/mL [facility] Blood specimen (specimen) BLOOD SPECIMEN / Unknown 08/21/2014 1:00 AM CDT 08/21/2014 1:29 PM CDT M Tera Gillette MD LAB - CHEMISTRY TOSHIA POPE [address] [phone] * MRI ABDOMEN W MRCP WWO CONT [...] Report dictated by Santiago Krishnamurthy M.D. (residential life director). I, Dr. Kvng PAREKH M.D. have personally [...] MRCP. Image data was analyzed on a [id number] workstation for the MRCP portion of the [...] Report dictated by Santiago Krishnamurthy M.D. (residential life director). I, Dr. Kvng PAREKH M.D. have personally reviewed and interpreted thisexamination/study. This report was electronically signed by Kvng PAREKH M.D. on08/07/2014 12:03 PM . Morgan Dickey MD MR ORDERABLES * CULTURE URINE REFLEXED (07/16/2014 12:23 PM CDT) Only the most recent of7 resultswithin the time period is included. Culture Urine Comprehensive CULTURE INDICATED - RESULTS TO FOLLOW [facility] ([facility]) Comment: Test Performed at: [facility] [id number] [place] [address] WESLEY ARAUJO DO,MPH 07/16/2014 12:2 3 PM CDT 07/16/2014 12:24 PM CDT Bob Varma MD LAB - MICROBIOLOGY O RDERABLES [facility] ([facility]) * PTT SLU (06/20/2014 9:55 PM CDT) Only the most recent of17 resultswithin the time period is included. APTT 34.0 23.0 - 38.4 Seconds [facility] Comment:Suggested therapeuti c range for full dose I.V. heparin therapy for venous thromboembolism is 66.0-91.0 seconds. Blood specimen (specimen) BLOOD SPECIMEN / Unknown 06/20/2014 9:55 PM CDT 06/20/2014 10:03 PM CDT Narrative [facility] - 06/20/2014 10:18 PM CDT Is patient on Heparin, Argatroban or Dabigatran?->N Zach Iverson MD LAB - COAGULATION OR DERABLES Performing Organization Address [facility]/ZIP Co de Phone Number [address] [phone] * LACTIC ACID BLOOD (06/20/2014 9:55 PM CDT) Only the most recent of51 resultswithin the time period is included. Lactic Acid-Stat 0.7 0.5 - 2.2 mmol/L [facility] Blood specimen (specimen) BLOOD SPECIMEN / Unknown 06/20/2014 9:55 PM CDT 06/20/2014 10:03 PM CDT Zach Iverson MD LAB - CHEMISTRY ORDE RABLES Performing Organization Address [facility] Co de Phone Number [address] [phone] * MICROALB/CREAT RATIO URINE RANDOM PANEL (04/24/2013 2:39 PM DOBIE WORKER) Creatinine Urine 108 20 - 320 mg/dL [facility] ([facility]) Microalbumin Urine 0.7 mg/dL [facility] ([facility]) Comment: Reference Range Not established Microalbumin/Creat inine Ratio 6 <30 mcg/mg creat [facility] ([facility]) Comment: The ADA defines abnormalities in albumin excretion as follows: Category Result (mcg/mg creatinine) Normal <30 Microalbuminuria 30-299 Clinical albuminuria > OR = 300 The ADA recommends that at least two of three specimens collected within a 3-6 month period be abnormal before considering a patient to be within a diagnostic category. Test Performed at: [facility] [id number] [place] [address] WESLEY ARAUJO DO,MPH Urine specimen (specimen) URINE SPECIMEN OBTAINED BY CLEAN CATCH PROCEDURE / Unknown 04/24/2013 2:39 PM DOBIE WORKER 04/24/2013 2:39 PM DOBIE WORKER Bob Varma MD LAB - URINE CHEMISTR Y ORDERABLES Performing Organization Address City/[facility]/ZIP Co de Phone Number [facility] ([facility]) * (ABNORMAL) GLUCOSE ACCUCHECK (03/04/2013 11:22 AM DOBIE WORKER) Only the most recent of127 resultswithin the time period is included. Glucose, Fingerstick 115(H) 70 - 110 MG/DL [facility] Comment:PERFORMED BY: CONSTANCE ACEVEDO 03/04/2013 11:2 2 AM DOBIE WORKER 03/05/2013 9:11 AM DOBIE WORKER Cade Mills MD LAB - CHEMISTRY TOSHIA POPE Performing Organization Address [facility] de Phone Number [address] [phone] * VAS BILATERAL VENOUS DUPLEX LE (03/04/2013 10:43 AM DOBIE WORKER) Only the most recent of3 resultswithin the time period is included. Anatomical Region Laterality Modality Other Maura Hernandez MD VASCULAR LAB ORDERAB LES * PREALBUMIN (03/04/2013 2:48 AM DOBIE WORKER) Only the most recent of5 resultswithin the time period is included. Prealbumin 24 16 - 45 mg/dL [facility] Venous blood specimen (specimen) 03/04/2013 2:48 AM DOBIE WORKER 03/04/2013 3:07 AM DOBIE WORKER Maura Hernandez MD LAB - CHEMISTRY TOSHIA POPE Performing Organization Address [facility] Co de Phone Number [address] [phone] * IR PICC LINE INSERT (02/25/2013 12:30 PM DOBIE WORKER) Only the most recent of4 resultswithin the time period is included. Anatomical Region Laterality Modality Other Narrative 02/25/2013 3:57 PM DOBIE WORKER This is an interventional nephrology procedure performed on 02/25/2013 Process Helper: Rahul Denise Attending: Rahul Denise Procedures performed: [...] case was 31 cm. Accordingly a 5 Bermudian double- lumen power PICC line was trimmed [...] an interventional nephrology procedure performed on 02/25/2013 Process Helper: Rahul Denise Attending: Rahul Denise Procedures performed: [...] this case was 31 cm.Accordingly a 5 [place]udian double-lumen power PICC line was trimmed to [...] US GUIDE VASCULAR ACCESS (02/25/2013 12:30 PM DOBIE WORKER) Only the most recent of2 resultswithin the time period is included. Anatomical Region Laterality Modality Other Narrative 02/25/2013 3:57 PM DOBIE WORKER This is an interventional nephrology procedure performed on 02/25/2013 Process Helper: Rahul Denise Attending: Rahul Denise Procedures performed: [...] case was 31 cm. Accordingly a 5 B[place]udian double- lumen power PICC line was trimmed [...] an interventional nephrology procedure performed on 02/25/2013 Process Helper: Rahul Denise Attending: Rahul Denise Procedures performed: [...] this case was 31 cm.Accordingly a 5 B[place]udian double-lumen power PICC line was trimmed to [...] (ABNORMAL) BLOOD GASES ART (02/21/2013 5:30 AM DOBIE WORKER) Only the most recent of47 resultswithin the time period is included. pH Arterial 7.47(H) 7.35 - 7.45 [facility] pCO2 Arterial 32(L) 35 - 45 mmHg [facility] pO2 Arterial 195(H) 82 - 106 mmHg [facility] HCO3 Arterial 23.1 22 - 26 mEq/L [facility] TCO2 Arterial 24.1(L) 25 - 29 mEq/L [facility] Base Excess Arterial 0.1 -2 - 2 [facility] Hemoglobin Arterial 7.6(L) 12.0 - 15.5 g/dL [facility] Oxyhemoglobin Arterial 97.2 95.0 - 100.0 % [facility] Carboxyhemoglobin 1.6 0 - 3 % [facility] Methemoglobin 1.1 0 - 2.0 % [facility] FI O2 Arterial 21 [facility] Arterial blood specimen (specimen) 02/21/2013 5:30 AM DOBIE WORKER 02/21/2013 5:50 AM DOBIE WORKER Narrative [facility] - 02/21/2013 5:50 AM DOBIE WORKER FiO2->40% FIo2: 21 Maura Hernandez MD LAB - BLOOD GASES OR DERABLES [facility] [address] [phone] * XR CHEST 1VW PORTABLE (02/21/2013 4:39 AM DOBIE WORKER) Only the most recent of12 resultswithin the time period is included. Anatomical Region Laterality Modality Chest Other Impressions 02/21/2013 2:05 PM DOBIE WORKER Impression: The endotracheal tube is unchanged in [...] Report dictated by Nancy Solorio M.D. (residential life director). Dr. vKng Gregg M.D. have personally reviewed and interpreted this examination/study. This report was electronically signed by Kvng PAREKH M.D. on 02/21/2013 2:05 PM . Narrative 02/21/2013 2:05 PM DOBIE WORKER Exam: PX CHEST 1 VW Date: 02/21/2013 [...] Report dictated by Nancy Solorio M.D. (residential life director). I, Dr. Kvng PAREKH M.D. have personally reviewed and interpreted thisexamination/study. This report was electronically signed by Kvng PAREKH M.D. on02/21/2013 2:05 PM . Maura Hernandez MD DIAGNOSTIC IMAGING O RDERABLES * (ABNORMAL) CALCIUM IONIZED WHOLE BLOOD (02/21/2013 12:00 AM DOBIE WORKER) Only the most recent of19 resultswithin the time period is included. Ionized Calcium Whole Blood 1.16 MMOL/L [facility] Whole Blood PH 7.49(H) 7.35 - 7.45 [facility] Adjusted Ionized Calcium 1.21 1.19 - 1.34 mmol/L [facility] 02/21/2013 02/21/2013 12: 54 AM DOBIE WORKER Maura Hernandez MD LAB - CHEMISTRY TOSHIA POPE [address] [phone] * XR ABDOMEN KUB PORTABLE (02/20/2013 10:48 AM DOBIE WORKER) Only the most recent of6 resultswithin the time period is included. Anatomical Region Laterality Modality Other Impressions 02/20/2013 11:14 AM DOBIE WORKER Impression: The enteric tube terminates in the proximal stomach. Several surgical drains are now seen overlying the abdomen. Surgical clips are seen superimposing the right upper quadrant. A radiopaque linear density is identified overlying the right flank. An IVC filter has been placed. Several skin natalie are present in the midline. Report dictated by Nancy Solorio M.D. (residential life director). This report was approved by Nancy Solorio M.D. on 02/20/2013 11:[address] REYMUNDO Gregg MD have personally reviewed and interpreted this examination/study. This report was electronically signed by Dr. REYMUNDO JONES MD on 02/20/2013 11:14 AM . Narrative 02/20/2013 11:14 AM DOBIE WORKER Exam: PX ABDOMEN 1 VW Date: 02/20/2013 [...] Report dictated by Nancy Solorio M.D. (residential life director). This report was approved by Nancy Solorio M.D. on 02/20/2013 11:14AM . Dr. Dr. REYMUNDO Gregg MD have personally reviewed and interpreted thisexamination/study. This report was electronically signed by Dr. REYMUNDO JONES MD on02/20/2013 11:14 AM . Maura Hernandez MD DIAGNOSTIC IMAGING O RDERABLES * CULTURE SPUTUM+GRAM STAIN (02/19/2013 5:20 PM DOBIE WORKER) Gram Stain MODERATE POLYMORPHONUCLEAR CELLS; RARE EPITHELIAL CELLS; MODERATE YEAST AND PSEUDOHYPHAE SEEN. GRAM STAINS ARE ROUTINELY SCREENED FOR THE PRESENCE OF POLYMORPHONUCLEAR CELLS. [facility] Culture Results [facility] Culture Sputum and Smear NO GROWTH AFTER 24 HOURS. AFTER 48 HOURS, MODERATE GROWTH OF YEAST. [facility] Culture Results [facility] Sputum specimen (specimen) URINE SPECIMEN COLLECTION, CATHETERIZED / Unknown 02/19/2013 5:20 PM DOBIE WORKER 02/19/2013 5:49 PM DOBIE WORKER Narrative [facility] - 02/21/2013 10:46 AM DOBIE WORKER Specimen Type->Sputum Maura Hernandez MD LAB - MICROBIOLOGY O SOCRATES Performing Organization Address City/[facility]/ZIP Co de Phone Number [address] [phone] * LACTIC ACID WHOLE BLOOD (02/18/2013 11:30 AM DOBIE WORKER) Only the most recent of2 resultswithin the time period is included. Pathologist [facility] Lactic Acid-Stat 2.1 0.5 - 3.4 mmol/L [facility] Blood specimen (specimen) 02/18/2013 11:30 AM DOBIE WORKER 02/18/2013 11:44 AM DOBIE WORKER Anushka Peter MD LAB - CHEMISTRY TOSHIA POPE Performing Organization Address City/[facility]/ZIP Co de Phone Number [address] [phone] * CHLORIDE WHOLE BLOOD (02/18/2013 11:30 AM DOBIE WORKER) Pathologist [facility] Whole Blood CL 106 101 - 111 MMOL/L [facility] 02/18/2013 11:3 0 AM DOBIE WORKER 02/18/2013 11:44 AM DOBIE WORKER Anushka Peter MD LAB - CHEMISTRY TOSHIA POPE Performing Organization Address [facility]/ZIP Co de Phone Number [address] [phone] * (ABNORMAL) BLOOD GASES SEVERIANO (02/18/2013 11:30 AM DOBIE WORKER) Only the most recent of5 resultswithin the time period is included. pH Venous 7.48(H) 7.30 - 7.40 [facility] pCO2 Venous 37(L) 40 - 46 mmHg [facility] pO2 Venous 42 35 - 42 mmHg [facility] HCO3 Venous 27.5(H) 22.0 - 26.0 mEq/L [facility] TCO2 Mixed Venous 28.6 25.0 - 29.0 mEq/L [facility] Base Excess Venous 4.3(H) -2 - [address] [facility] Hemoglobin Mixed Venous 11.4(L) 12 - 15 g/dL [facility] Oxyhemoglobin Mixed Venous 81.1(H) 66.0 - 77.0 % [facility] Carboxyhemoglobin 1.6 0.0 - 3.0 % [facility] Methemoglobin 1.7 0.0 - 2.0 % [facility] FI O2 Mixed Venous [address] [facility] Venous blood specimen (specimen) 02/18/2013 11:30 AM DOBIE WORKER 02/18/2013 5:03 PM DOBIE WORKER Narrative [facility] - 02/18/2013 5:07 PM DOBIE WORKER FIO2->100% FIo2: 100 Maura Hernandez MD LAB - BLOOD GASES OR DERABLES [address] [phone] * (ABNORMAL) POTASSIUM WHOLE BLD (02/18/2013 11:30 AM DOBIE WORKER) Potassium 3.0(L) 3.5 - 5.5 mmol/L [facility] 02/18/2013 11:3 0 AM DOBIE WORKER 02/18/2013 11:44 AM DOBIE WORKER Anushka Peter MD LAB - CHEMISTRY TOSHIA POPE [address] [phone] * SODIUM WHOLE BLOOD (02/18/2013 11:30 AM DOBIE WORKER) Sodium Whole Blood 139 135 - 145 mmol/L [facility] 02/18/2013 11:3 0 AM DOBIE WORKER 02/18/2013 11:44 AM DOBIE WORKER Anushka Peter MD LAB - CHEMISTRY TOSHIA POPE Performing Organization Address [facility] Co de Phone Number [address] [phone] * (ABNORMAL) GLUCOSE WHOLE BLOOD (02/18/2013 11:30 AM DOBIE WORKER) Glucose 199(H) 70 - 110 mg/dL [facility] 02/18/2013 11:3 0 AM DOBIE WORKER 02/18/2013 11:44 AM DOBIE WORKER Anushka Peter MD LAB - CHEMISTRY TOSHIA POPE Performing Organization Address [facility] de Phone Number [address] [phone] * CT HEAD WO CONTRAST (02/18/2013 6:06 AM DOBIE WORKER) Only the most recent of2 resultswithin the time period is included. Anatomical Region Laterality Modality Head Other Impressions 02/18/2013 7:24 AM DOBIE WORKER IMPRESSION: 1. No acute intracranial process. 2. Mild cerebral atrophy and basal ganglia calcifications which may reflect sequela of long-standing small vessel vasculopathy in this patient with systemic lupus erythematosus. This report was electronically signed by PRERNA WOODS M.D. on 02/18/2013 7:24 AM . Narrative 02/18/2013 7:24 AM DOBIE WORKER EXAMINATION: Computed tomography (CT) of the head [...] (ABNORMAL) SVO2 FOR RECALIBRATION (02/17/2013 2:15 AM DOBIE WORKER) Only the most recent of4 resultswithin the time period is included. SVO2 for Recalibration 61.9(L) 66.0 - 77.0 % [facility] 02/17/2013 2:15 AM DOBIE WORKER 02/17/2013 2:35 AM DOBIE WORKER Chidi Zaragoza MD LAB - CHEMISTRY TOSHIA POPE [address] [phone] * CROSSMATCH RBC LEUKOREDUCED (02/15/2013 5:00 PM DOBIE WORKER) Only the most recent of5 resultswithin the time period is included. Blood Product [id number] A+ RBC-WBCD TRANSFUSED 02/18/13 1139 [id number] A+ RBC-WBCD XM COMPATIBLE [id number] A+ RBC-WBCD XM COMPATIBLE [id number] A+ RBC-WBCD XM COMPATIBLE [facility] 02/15/2013 5:00 PM DOBIE WORKER 02/15/2013 5:12 PM DOBIE WORKER Chidi Zaragoza MD LAB - BLOOD BANK ORD ERABLES [address] [phone] * IR VASCULAR CLOSURE DEVICE (02/13/2013 11:00 AM DOBIE WORKER) Anatomical Region Laterality Modality Other Impressions 02/21/2013 5:27 PM DOBIE WORKER Impression: Pulmonary angiogram from main pulmonary artery [...] 5:27 PM . Narrative 02/21/2013 5:27 PM DOBIE WORKER History: Patient with necrotizing pancreatitis underwent surgical [...] Inferior venacavogram. 4. Placement of a retrievable Catron IVC filter below the level of renal [...] draped in the usual sterile manner. A nurse anesthetist film of chest demonstrated the tracheostomy tube [...] advanced into the IVC and an 6 Bermudian vascular sheath was placed. Using a 6 Bermudian MPA catheter and Glidewire combination the catheter [...] IVC delivery sheath was advanced. An retrievable Catron IVC filter was deployed below the level [...] A wrist series of exchanges a 5 Bermudian vascular sheath was placed. Using a VS [...] Inferior venacavogram. 4. Placement of a retrievable Catron IVC filter below the level of renalveins. [...] draped in the usual sterile manner. A nurse anesthetist film of chestdemonstrated the tracheostomy tube in [...] vascular sheath was placed. Using a 6 Bermudian MPA catheter and Glidewire combination the catheter [...] documented. A wristseries of exchanges a 5 Bermudian vascular sheath was placed. Using a VS [...] This report was electronically signed by JERARDO KENNDEY M.D. on02/21/2013 5:27 PM . Cade Mills MD IR ORDERABLES * IR PULMONARY ANGIO PROCEDURAL CODE (02/13/2013 11:00 AM DOBIE WORKER) Anatomical Region Laterality Modality Other Impressions 02/21/2013 5:27 PM DOBIE WORKER Impression: Pulmonary angiogram from main pulmonary artery [...] procedure. This report was electronically signed by JERADRO KENNEDY M.D. on 02/21/2013 5:27 PM . Narrative 02/21/2013 5:27 PM DOBIE WORKER History: Patient with necrotizing pancreatitis underwent surgical [...] Inferior venacavogram. 4. Placement of a retrievable Catron IVC filter below the level of renal [...] draped in the usual sterile manner. A nurse anesthetist film of chest demonstrated the tracheostomy tube [...] advanced into the IVC and an 6 Bermudian vascular sheath was placed. Using a 6 Bermudian MPA catheter and Glidewire combination the catheter [...] A wrist series of exchanges a 5 Bermudian vascular sheath was placed. Using a VS [...] Inferior venacavogram. 4. Placement of a retrievable Catron IVC filter below the level of renalveins. [...] draped in the usual sterile manner. A nurse anesthetist film of chestdemonstrated the tracheostomy tube in [...] vascular sheath was placed. Using a 6 Bermudian MPA catheter and Glidewire combination the catheter [...] documented. A wristseries of exchanges a 5 Bermudian vascular sheath was placed. Using a VS [...] ANGIO EXTREMITY PROCEDURAL CODE (02/13/2013 11:00 AM DOBIE WORKER) Only the most recent of2 resultswithin the time period is included. Anatomical Region Laterality Modality Other Impressions 02/21/2013 5:27 PM DOBIE WORKER Impression: Pulmonary angiogram from main pulmonary artery [...] 5:27 PM . Narrative 02/21/2013 5:27 PM DOBIE WORKER History: Patient with necrotizing pancreatitis underwent surgical [...] draped in the usual sterile manner. A nurse anesthetist film of chest demonstrated the tracheostomy tube [...] advanced into the IVC and an 6 Bermudian vascular sheath was placed. Using a 6 Bermudian MPA catheter and Glidewire combination the catheter [...] A wrist series of exchanges a 5 Bermudian vascular sheath was placed. Using a VS [...] draped in the usual sterile manner. A nurse anesthetist film of chestdemonstrated the tracheostomy tube in [...] vascular sheath was placed. Using a 6 Bermudian MPA catheter and Glidewire combination the catheter [...] an IVC delivery sheath wasadvanced. An retrievable Catron IVC filter was deployed below the level of renal veins underfluoroscopic guidance. Followup venogram demonstrated satisfactoryposition of the IVC filter below the level of renal veins. The sheath wasremoved and hemostasis was achieved with manual compression. Under ultrasound guidance, the right common femoral artery was accessedusing a micropuncture needle. The needle entry was documented. A wristseries of exchanges a 5 Bermudian vascular sheath was placed. Using a VS [...] IR IVC FILTER PLACEMENT (02/13/2013 11:00 AM DOBIE WORKER) Anatomical Region Laterality Modality Abdomen Other Impressions 02/21/2013 5:27 PM DOBIE WORKER Impression: Pulmonary angiogram from main pulmonary artery [...] 5:27 PM . Narrative 02/21/2013 5:27 PM DOBIE WORKER History: Patient with necrotizing pancreatitis underwent surgical [...] Inferior venacavogram. 4. Placement of a retrievable Catron IVC filter below the level of renal [...] draped in the usual sterile manner. A nurse anesthetist film of chest demonstrated the tracheostomy tube [...] advanced into the IVC and an 6 Bermudian vascular sheath was placed. Using a 6 Bermudian MPA catheter and Glidewire combination the catheter [...] IVC delivery sheath was advanced. An retrievable Catron IVC filter was deployed below the level [...] A wrist series of exchanges a 5 Bermudian vascular sheath was placed. Using a VS [...] draped in the usual sterile manner. A nurse anesthetist film of chestdemonstrated the tracheostomy tube in [...] vascular sheath was placed. Using a 6 Bermudian MPA catheter and Glidewire combination the catheter [...] an IVC delivery sheath wasadvanced. An retrievable Catron IVC filter was deployed below the level of renal veins underfluoroscopic guidance. Followup venogram demonstrated satisfactoryposition of the IVC filter below the level of renal veins. The sheath wasremoved and hemostasis was achieved with manual compression. Under ultrasound guidance, the right common femoral artery was accessedusing a micropuncture needle. The needle entry was documented. A wristseries of exchanges a 5 Bermudian vascular sheath was placed. Using a VS [...] IR PULMONARY ANGIOGRAM BILAT (02/13/2013 11:00 AM DOBIE WORKER) Anatomical Region Laterality Modality Lung Other Impressions 02/21/2013 5:27 PM DOBIE WORKER Impression: Pulmonary angiogram from main pulmonary artery [...] 5:27 PM . Narrative 02/21/2013 5:27 PM DOBIE WORKER History: Patient with necrotizing pancreatitis underwent surgical [...] draped in the usual sterile manner. A nurse anesthetist film of chest demonstrated the tracheostomy tube [...] advanced into the IVC and an 6 Bermudian vascular sheath was placed. Using a 6 Bermudian MPA catheter and Glidewire combination the catheter [...] A wrist series of exchanges a 5 Bermudian vascular sheath was placed. Using a VS [...] draped in the usual sterile manner. A nurse anesthetist film of chestdemonstrated the tracheostomy tube in [...] vascular sheath was placed. Using a 6 Bermudian MPA catheter and Glidewire combination the catheter [...] documented. A wristseries of exchanges a 5 Bermudian vascular sheath was placed. Using a VS [...] * IR VISCERAL ANGIO (02/13/2013 11:00 AM DOBIE WORKER) Only the most recent of2 resultswithin the time period is included. Anatomical Region Laterality Modality Abdomen Other Impressions 02/21/2013 5:27 PM DOBIE WORKER Impression: Pulmonary angiogram from main pulmonary artery [...] 5:27 PM . Narrative 02/21/2013 5:27 PM DOBIE WORKER History: Patient with necrotizing pancreatitis underwent surgical [...] Inferior venacavogram. 4. Placement of a retrievable Catron IVC filter below the level of renal [...] draped in the usual sterile manner. A nurse anesthetist film of chest demonstrated the tracheostomy tube [...] advanced into the IVC and an 6 Bermudian vascular sheath was placed. Using a 6 Bermudian MPA catheter and Glidewire combination the catheter [...] IVC delivery sheath was advanced. An retrievable Catron IVC filter was deployed below the level [...] A wrist series of exchanges a 5 Bermudian vascular sheath was placed. Using a VS [...] draped in the usual sterile manner. A nurse anesthetist film of chestdemonstrated the tracheostomy tube in [...] vascular sheath was placed. Using a 6 Bermudian MPA catheter and Glidewire combination the catheter [...] documented. A wristseries of exchanges a 5 Bermudian vascular sheath was placed. Using a VS [...] * (ABNORMAL) FIBRINOGEN CLAUSS (02/13/2013 7:15 AM DOBIE WORKER) Fibrinogen Clauss 161(L) 170 - 400 mg/dL [facility] 02/13/2013 7:15 AM DOBIE WORKER 02/13/2013 7:15 AM DOBIE WORKER Narrative [facility] - 02/13/2013 7:30 AM DOBIE WORKER IS PATIENT ON HEPARIN? (Y OR N) N Maura Hernandez MD LAB - COAGULATION OR DERABLES [facility] [address] [phone] * PATHOLOGY TISSUE (02/13/2013 7:01 AM DOBIE WORKER) AP Surg () [facility] Comment: CLINICAL HISTORY: The patient is a [...] of 21 x 14 x 6.5 cm. Test Deskman sections are submitted as A1. AJ/kaiden MICROSCOPIC DESCRIPTION: The adipose tissue has abundant fibrosis, acute inflammation, and hemorrhage. SENIOR BUSINESS ANALYST/AJ/edk The performance characteristics of all immunohistochemical and indirect immunofluorescence stains (if any) cited in this report were determined by the [facility] of [facility] in compliance with CLIA '88 regulations. Some of these tests rely on the use of analyte-specific reagents and are subject to specific labeling requirements by the FDA. Such tests were developed by the [facility] of [facility] and have not been cleared or approved [...] MD. Electronically signed 02/14/2013 02/13/2013 7:01 AM DOBIE WORKER 02/13/2013 11:02 AM DOBIE WORKER Narrative [facility] - 02/14/2013 5:46 PM DOBIE WORKER PRE-OP DIAGNOSIS: Abdominal Compartmental Sydrome OPERATIVE PROCEDURE / FINDINGS: Procedure(s) with comments: EXPLORATORY LAPAROTOMY POST-OP DIAGNOSIS: * No post-op diagnosis entered * Collection Date->02/13/13 Collection Time-> 7:01 AM Specimen A->Tissue omentum, inflammatory rind Maura Hernandez MD LAB - PATHOLOGY/CYTO LOGY ORDERABLES Performing Organization Address [facility] Co de Phone Number [address] [phone] * CULTURE AFB (02/13/2013 6:30 AM DOBIE WORKER) Only the most recent of2 resultswithin the time period is included. Culture Acid-Fast Bacilli NO GROWTH OF ACID FAST BACILLI AFTER 8 WEEKS. [facility] Fluid specimen (specimen) (Unspecified) 02/13/2013 6:30 AM DOBIE WORKER 02/13/2013 6:57 AM DOBIE WORKER Narrative [facility] - 04/17/2013 11:24 AM DOBIE WORKER PANCREATIC DEBRIDEMENT Specimen Type->Body fluid, unspecified Maura Hernandez MD LAB - MICROBIOLOGY O SOCRATES Performing Organization Address [facility] Co de Phone Number [address] [phone] * CULTURE FUNGUS OTHER+FUNGUS SMEAR (02/13/2013 6:30 AM DOBIE WORKER) Only the most recent of3 resultswithin the time period is included. Culture Fungus-Other NO GROWTH FUNGI. [facility] Fluid specimen (specimen) ENTIRE PANCREAS / Unknown 02/13/2013 6:30 AM DOBIE WORKER 02/13/2013 6:54 AM DOBIE WORKER Narrative [facility] - 03/19/2013 10:53 AM DOBIE WORKER PANCREATIC DEBRIDEMENT Specimen Type->Body fluid, unspecified FUNGUS SMEAR ADDED PER PROTOCOL Maura Hernandez MD LAB - MICROBIOLOGY O SOCRATES Performing Organization Address [facility] Co de Phone Number [address] [phone] * CULTURE AEROBIC (02/13/2013 6:30 AM DOBIE WORKER) Only the most recent of3 resultswithin the time period is included. Culture Routine NO GROWTH AFTER ONE WEEK. [facility] Fluid specimen (specimen) ENTIRE PANCREAS / Unknown 02/13/2013 6:30 AM DOBIE WORKER 02/13/2013 6:54 AM DOBIE WORKER Narrative [facility] - 02/20/2013 1:55 PM DOBIE WORKER PANCREATIC DEBRIDEMENT Specimen Type->Body fluid, unspecified FUNGUS SMEAR ADDED PER PROTOCOL Maura Hernandez MD LAB - MICROBIOLOGY O RDERABLES Performing Organization Address City/State/[facility] Co de Phone Number [address] [phone] * VIRAL CULTURE MISC (02/13/2013 6:30 AM DOBIE WORKER) Viral Culture General No virus isolated. . [facility] Comment: Performed at: [address] [id number] Digital Asset Coordinator: Wesley Mercer MD, Phone: [phone] Preliminary Report: No virus isolated at 4 days. Next report to follow after 7 days. Performed at: [address] [id number] Digital Asset Coordinator: Wesley Mercer MD, Phone: [phone] Preliminary Report: No virus isolated at 24 hours. Next report to follow after 4 days. Performed at: [address] [id number] Digital Asset Coordinator: Wesley Mercer MD, Phone: [phone] !! EDITED OR CORRECTED RESULTS !! RESULT PREVIOUSLY REPORTED : Preliminary Report: No virus isolated at 24 hours. Next report to follow after 4 days. Performed at: [address] [id number] Digital Asset Coordinator: Wesley Mercer MD, Phone: [phone] NOTIFIED [] AT 1322 ON 02/18/13 !! EDITED OR CORRECTED RESULTS !! RESULT PREVIOUSLY REPORTED : Preliminary Report: No virus isolated at 4 days. Next report to follow after 7 days. Performed at: [address] [id number] Digital Asset Coordinator: Wesley Mercer MD, Phone: [phone] Preliminary Report: No virus isolated at 24 hours. Next report to follow after 4 days. Performed at: [facility] Lab[address] [id number] Digital Asset Coordinator: Wesley Mercer MD, Phone: [phone] !! EDITED OR CORRECTED RESULTS !! RESULT PREVIOUSLY REPORTED : Preliminary Report: No virus isolated at 24 hours. Next report to follow after 4 days. Performed at: [facility] [address] [id number] Digital Asset Coordinator: Wesley Mercer MD, Phone: [phone] NOTIFIED [] AT 1322 ON 02/18/13 NOTIFIED [] AT 0829 ON 02/22/13 Fluid specimen (specimen) ENTIRE PANCREAS / Unknown 02/13/2013 6:30 AM DOBIE WORKER 02/13/2013 6:58 AM DOBIE WORKER Narrative [facility] - 02/22/2013 8:29 AM DOBIE WORKER PANCREATIC DEBRIDEMENT Specimen Type->Body fluid, unspecified SPECIMEN SOURCE? BODY FLUID Maura Hernandez MD LAB - MICROBIOLOGY O SOCRATES Performing Organization Address [facility] Co de Phone Number [address] [phone] * AFB SMEAR (02/13/2013 6:30 AM DOBIE WORKER) Only the most recent of2 resultswithin the time period is included. Acid-Fast Bacilli Smear NO ACID FAST BACILLI SEEN. [facility] Fluid specimen (specimen) (Unspecified) 02/13/2013 6:30 AM DOBIE WORKER 02/13/2013 6:57 AM DOBIE WORKER Narrative [facility] - 02/14/2013 3:37 PM DOBIE WORKER PANCREATIC DEBRIDEMENT Specimen Type->Body fluid, unspecified Maura Hernandez MD LAB - MICROBIOLOGY O SOCRATES Performing Organization Address [facility] Co de Phone Number [address] [phone] * GRAM STAIN SMEAR (02/13/2013 6:30 AM DOBIE WORKER) Only the most recent of3 resultswithin the time period is included. Gram Stain NO ORGANISMS SEEN. GRAM STAINS ARE ROUTINELY SCREENED FOR THE PRESENCE OF POLYMORPHONUC LEAR CELLS. [facility] Culture Results [facility] Fluid specimen (specimen) ENTIRE PANCREAS / Unknown 02/13/2013 6:30 AM DOBIE WORKER 02/13/2013 6:54 AM DOBIE WORKER Narrative [facility] - 02/13/2013 2:11 PM DOBIE WORKER PANCREATIC DEBRIDEMENT Specimen Type->Body fluid, unspecified FUNGUS SMEAR ADDED PER PROTOCOL Maura Hernandez MD LAB - MICROBIOLOGY O SOCRATES Performing Organization Address [facility] Co de Phone Number [address] [phone] * FUNGUS SMEAR (02/13/2013 6:30 AM DOBIE WORKER) Only the most recent of3 resultswithin the time period is included. Fungus Smear NO FUNGI SEEN. [facility] Fluid specimen (specimen) 02/13/2013 6:30 AM DOBIE WORKER 02/13/2013 6:54 AM DOBIE WORKER Narrative [facility] - 02/14/2013 3:48 PM DOBIE WORKER FUNGUS SMEAR ADDED PER PROTOCOL Maura Hernandez MD LAB - MICROBIOLOGY O SOCRATES Performing Organization Address [facility] Co de Phone Number [address] [phone] * CULTURE ANAEROBE (02/13/2013 6:30 AM DOBIE WORKER) Only the most recent of3 resultswithin the time period is included. Culture Anaerobic NO GROWTH AFTER 48 HOURS. NO GROWTH AFTER ONE WEEK. [facility] Culture Results [facility] Fluid specimen (specimen) ENTIRE PANCREAS / Unknown 02/13/2013 6:30 AM DOBIE WORKER 02/13/2013 6:54 AM DOBIE WORKER Narrative [facility] - 02/20/2013 6:30 PM DOBIE WORKER PANCREATIC DEBRIDEMENT Specimen Type->Body fluid, unspecified FUNGUS SMEAR ADDED PER PROTOCOL Maura Hernandez MD LAB - MICROBIOLOGY Keegan CROWELL Performing Organization Address [facility]/ZIP Co de Phone Number [address] [phone] * BLOOD TYPE ABO+ RH PANEL (02/12/2013 7:00 PM DOBIE WORKER) Only the most recent of3 resultswithin the time period is included. Interpretation ABO/Rh Patient A POS [facility] 02/12/2013 7:00 PM DOBIE WORKER 02/12/2013 7:12 PM DOBIE WORKER Sesar Bhat LAB - BLOOD BANK ORD ERABLES [address] [phone] * PREPARE PLATELET PHERESIS UNIT(S) (02/12/2013 6:45 PM DOBIE WORKER) Blood Product [id number] A+ SDP-WBCD TRANSFUSED 02/13/13 0001 [facility] 02/12/2013 6:45 PM DOBIE WORKER 02/12/2013 6:45 PM DOBIE WORKER Sesar Bhat LAB - BLOOD [place] [address], [facility] [phone] * PREPARE FFP UNIT(S) (02/12/2013 6:45 PM DOBIE WORKER) Blood Product [id number] AB- FFP-T TRANSFUSED 02/12/13 190 [id number] AB+ FFP-T TRANSFUSED 02/12/13 193 [id number] A+ FFP-T TRANSFUSED 02/13/13 0001 [id number] A+ FFP-T TRANSFUSED 02/13/13 0001 [id number] A+ FFP-T TRANSFUSED 02/13/13 0001 [id number] A- FFP-T TRANSFUSED 02/13/13521 [id number] A+ FFP-T TRANSFUSED 02/13/13 0001 [id number] A+ FFP-T TRANSFUSED 02/13/13521 [id number] A+ FFP-T TRANSFUSED 02/13/13 0522 [facility] 02/12/2013 6:45 PM DOBIE WORKER 02/12/2013 6:45 PM DOBIE WORKER Sesar Bhat DO LAB - BLOOD BANK ORD ERABLES [facility] [address] [place] [address] * CT CHEST ABDOMEN PELVIS W CONT (02/12/2013 5:55 PM DOBIE WORKER) Anatomical Region Laterality Modality Chest, Abdomen, Pelvis Other Impressions 02/13/2013 5:36 PM DOBIE WORKER IMPRESSION: 1. A large left abdominal hemorrhagic [...] 5:36 PM . Narrative 02/13/2013 5:36 PM DOBIE WORKER EXAMINATION: Computed tomography of the chest, abdomen, [...] * B-TYPE NATRIURETIC PEPTIDE (02/12/2013 3:15 PM DOBIE WORKER) BNP 14 SEE COMMENT pg/mL [facility] Comment: A decision threshold of [...] 79.0 IV 1635 98.3 02/12/2013 3:15 PM DOBIE WORKER 02/12/2013 3:17 PM DOBIE WORKER Historical Provider LAB - CHEMISTRY O RDNAVA Performing Organization Address [facility] Co de Phone Number [address] [phone] * (ABNORMAL) HEMATOCRIT (02/06/2013 10:35 PM CDT) Only the most recent of7 resultswithin the time period is included. Hematocrit 28.6(L) 35.0 - 45.0 % [facility] Venous blood specimen (specimen) 02/06/2013 10:35 PM CDT 02/06/2013 11:00 PM CDT Narrative [facility] - 02/06/2013 11:10 PM CDT UTO X 3 DANLIO KUMAR IS AWARE..[id number] Weston Espinosa MD LAB - HEMATOLOGY ORD NAVA Performing Organization Address [facility] Co de Phone Number [address] [phone] * (ABNORMAL) HEMOGLOBIN (02/06/2013 10:35 PM CDT) Only the most recent of7 resultswithin the time period is included. Hemoglobin 9.3(L) 12.0 - 15.5 g/dL [facility] Venous blood specimen (specimen) 02/06/2013 10:35 PM CDT 02/06/2013 11:00 PM CDT Narrative [facility] - 02/06/2013 11:10 PM CDT UTO X 3 RN JOSÉ IS AWARE..[id number] Weston Espinosa MD LAB - HEMATOLOGY ORD ERABENITA Performing Organization Address [facility] Co de Phone Number [address] [phone] * XR ABDOMEN 2VW (01/30/2013 9:21 AM [...] M.D. on 01/30/2013 4:01PM . Dr. TIERA rGegg M.D. have personally reviewed and interpretedthis examination/study. This report was electronically signed by TIERA BENITEZ M.D. on01/30/2013 4:12 PM . Loni Silva MD DIAGNOSTIC IMAGING O RDERABLES * SODIUM URINE RANDOM (01/29/2013 5:20 PM CDT) Only the most recent of3 resultswithin the time period is included. Sodium Urine 140 mmol/L [facility] Comment: REFERENCE RANGE: NONE ESTABLISHED FOR RANDOM URINE SPECIMENS. Urine specimen (specimen) URINE SPECIMEN OBTAINED BY CLEAN CATCH PROCEDURE / Unknown 01/29/2013 5:20 PM CDT 01/29/2013 5:28 PM CDT Loni Silva MD LAB - URINE CHEMISTR Y ORDERABLES Performing Organization Address [facility] Co de Phone Number [address] [phone] * (ABNORMAL) OSMOLALITY URINE (01/29/2013 5:20 PM CDT) Only the most recent of2 resultswithin the time period is included. Osmolality Urine 355(L) 500 - 800 MOSM/KG [facility] Urine specimen (specimen) URINE SPECIMEN OBTAINED BY CLEAN CATCH PROCEDURE / Unknown 01/29/2013 5:20 PM CDT 01/29/2013 5:28 PM CDT Loni Silva MD LAB - URINE CHEMISTR Y ORDERABLES Performing Organization Address [facility] Co de Phone Number [address] [phone] * (ABNORMAL) JEAN-PAUL TITER AND PATTERN RFLXD (01/25/2013 7:00 AM CDT) Only the most recent of2 resultswithin the time period is included. JEAN-PAUL IFA See patterns . [facility] Comment: Negative <1:80 Borderline 1:80 Positive >1:80 Speckled Pattern >1:1280(A) . [facility] JEAN-PAUL Note . [facility] Comment: A positive JEAN-PAUL result may occur in healthy individuals or be associated with a variety of diseases. See interpre- tation below: Pattern Antigen Detected Suggested Disease Association Homogeneous DNA(ds,ss,), High titers - SLE (Smooth) Histone Speckled Sm, WEATHERIZATION CREW LEADER, SCL-70, SLE,MCTD,Scleroderma,Sjogrens SS-A/SS-B Nucleolar SCL-70, PM-1/SCL High titers Scleroderma Poly- myositis/Scleroderma Overlap Centromere Centromere PSS w/Crest syndrome variable Performed at: - [facility] [id number] Digital Asset Coordinator: Jean-Paul Johnson PhD, Phone: [phone] 01/25/2013 7:00 AM CDT 01/25/2013 7:16 AM CDT Loni Silva MD LAB - SEROLOGY ORDER HEATHER [place] [phone] * (ABNORMAL) JEAN-PAUL BLOOD SCREEN (01/25/2013 7:00 AM CDT) Only the most recent of2 resultswithin the time period is included. JEAN-PAUL POSITIVE( A) NONE DETECT [facility] Comment:SCREENING RESULT POS ITIVE, CONFIRMATION RESULT TO FOLLOW. Venous blood specimen (specimen) 01/25/2013 7:00 AM CDT 01/25/2013 7:16 AM CDT Narrative [facility] - 01/25/2013 3:20 PM CDT Draw from PICC Loni Silva MD LAB - CHEMISTRY TOSHIA POPE [facility] [address] [phone] * CT PARACENTESIS (01/23/2013 9:27 AM CDT) [...] MD CT ORDERABLES * AMYLASE BODY FLUID ([facility] ONLY) (01/23/2013 8:45 AM CDT) Only the most recent of3 resultswithin the time period is included. Amylase Fluid 24616 Units/L [facility] Comment: RESULT CONFIRMED BY DILUTION REFERENCE RANGE: NONE ESTABLISHED FOR FLUIDS Peritoneal dialysis fluid specimen (specimen) 01/23/2013 8:45 AM CDT 01/23/2013 10:41 AM CDT Loni Silva MD LAB - BODY FLUID ORD ERABLES Performing Organization Address [facility] [facility] Co de Phone Number [address] [phone] * TRIGLYCERIDES FLUID (01/23/2013 8:45 AM CDT) Triglycerides Fluid < 7 mg/dL [facility] Comment:REFERENCE RANGE: NON E ESTABLISHED FOR FLUIDS Fluid specimen (specimen) 01/23/2013 8:45 AM CDT 01/23/2013 10:41 AM CDT Loni Silva MD LAB - BODY FLUID ORD ERABLES Performing Organization Address City/[facility]/ZIP Co de Phone Number [address] [phone] * CELL COUNT CSF (01/23/2013 8:30 AM CDT) Only the most recent of2 resultswithin the time period is included. Fluid Type PERIT [facility] Color Fluid [facility] Clarity Fluid [facility] Volume Fluid 5 ML [facility] WBC, Fluid 12 MM3 [facility] RBC Fluid 24 /MM3 [facility] 01/23/2013 8:30 AM CDT 01/23/2013 10:42 AM CDT Narrative [facility] - 01/23/2013 11:37 AM CDT FLUID TYPE? OTHER FLUID Loni Silva MD LAB - BODY FLUID ORD ERABLES Performing Organization Address [facility]/[place] [address], [facility] [phone] * BILIRUBIN TOTAL FLUID (01/15/2013 2:45 PM CDT) Bilirubin Fluid 0.4 mg/dL [facility] Comment:REFERENCE RANGE: NON E ESTABLISHED FOR FLUIDS Fluid specimen (specimen) 01/15/2013 2:45 PM CDT 01/15/2013 3:25 PM CDT Loni Silva MD LAB - BODY FLUID ORD ERABLES Performing Organization Address [facility] [place] [address], [facility] [phone] * CULTURE TISSUE+GRAM STAIN (01/14/2013 3:15 PM CDT) Gram Stain MANY POLYMORPHONUCLEAR CELLS, NO ORGANISMS SEEN. GRAM STAINS ARE ROUTINELY SCREENED FOR THE PRESENCE OF POLYMORPHONUCLEAR CELLS. [facility] Culture Results [facility] Culture Tissue NO GROWTH AFTER ONE WEEK. [facility] Tissue (Unspecified) 01/14/2013 3:15 PM CDT 01/14/2013 3:30 PM CDT Narrative [facility] - 01/21/2013 11:38 AM CDT Specimen Type->Tissue unspecified abdominal fluid ABDOMINAL FLUID ONLY, NO TISSUE RECEIVED PLATES ONLY Lex Devine MD LAB - MICROBIOLOGY O RDERABENITA Performing Organization Address [facility]/[place] [address], [facility] [phone] * US PARACENTESIS (01/14/2013 2:55 PM CDT) Anatomical Region Laterality Modality Other Impressions 01/14/2013 4:26 PM CDT Impression: Ultrasound guided placement of an 12 B[place] APDL (pigtail) catheter in the right lower [...] abdomen. 2. Ultrasound guided placement of 12 [place] APDL (pig tail) in the right lower quadrant. Duration of Procedure: Appx. 45 minutes. Procedure in Detail: The procedure and possible complications were explained to the patient in detail, and informed consent was obtained. The patient was placed in a supine position on the rmount vernon and a limited sonographic examination was performed [...] and following series of dilatation/exchanges a 12 [place] APDL (pigtail) catheter was advanced. The initial aspirate was yellowish and approximately 700 cc amount of fluid was drained. Appropriate amount of aspirate was sent for necessary laboratory work up. A final imaging showed the catheter in satisfactory position. There is no immediate complication like hemorrhage noted. The patient tolerated the procedure. The patient was transferred to [facility] in stable condition. Procedure Note Lex [...] abdomen. 2. Ultrasound guided placement of 12 B[place]ian APDL (pig tail) in the rightlower quadrant. Duration of Procedure: Appx. 45 minutes. Procedure in Detail: The procedure and possible complications wereexplained to the patient in detail, and informed consent was obtained. The patient was placed in a supine position on the rmount vernon and a limitedsonographic examination was performed to [...] looped andfollowing series of dilatation/exchanges a 12 B[place]ian APDL (pigtail)catheter was advanced. The initial aspirate was yellowish andapproximately 700 cc amount of fluid was drained. Appropriate amount of aspirate was sent for necessary laboratorywork up. A final imaging showed the catheter in satisfactory position.There is no immediate complication like hemorrhage noted. The patient tolerated the procedure. [facility]. IMPRESSION Impression: Ultrasound guided placement of an 12 [place] APDL (pigtail)catheter in the right lower quadrant, [...] Impression: Ultrasound guided placement of an 12 [place] APDL (pigtail) catheter in the right lower [...] abdomen. 2. Ultrasound guided placement of 12 [place] APDL (pig tail) in the right lower [...] and following series of dilatation/exchanges a 12 [place] APDL (pigtail) catheter was advanced. The initial [...] abdomen. 2. Ultrasound guided placement of 12 [place] APDL (pig tail) in the rightlower quadrant. [...] looped andfollowing series of dilatation/exchanges a 12 [place]ian APDL (pigtail)catheter was advanced. The initial aspirate was yellowish andapproximately 700 cc amount of fluid was drained. Appropriate amount of aspirate was sent for necessary laboratorywork up. A final imaging showed the catheter in satisfactory position.There is no immediate complication like hemorrhage noted. The patient tolerated the procedure. [facility]. IMPRESSION Impression: Ultrasound guided placement of an 12 B[place]ian APDL (pigtail)catheter in the right lower quadrant, [...] BLOOD FECES (01/08/2013 2:35 PM CDT) Pathologist [facility] Occult Blood 1 POSITIVE NEGATIVE [facility] 01/08/2013 2:35 PM CDT 01/08/2013 4:29 PM CDT Loni Silva MD LAB - BODY FLUID ORD ERABLES [address] [phone] * (ABNORMAL) LIPID PROFILE (01/08/2013 6:13 AM CDT) Only the most recent of2 resultswithin the time period is included. Cholesterol Total 102 <200 mg/dL [facility] HDL 18(L) > OR = 40 mg/dL [facility] Comment: ATP III classification of HDL cholesterol: <40 mg/dL Low; considered a major risk factor >60 mg/dL High; considered a negative risk factor Triglycerides 112 <150 mg/dL [facility] Comment: ATP III classification of Triglycerides: < 150 mg/dL Normal triglycerides 150-199 mg/dL Borderline-high triglycerides 200-400 mg/dL High triglycerides > 500 mg/dL Very high triglycerides LDL Calculated 62 0 - 100 mg/dL [facility] Comment: ATP III classification of LDL cholesterol: <100 mg/dL Optimal 100-129 Near optimal/above optimal 130-159 Borderline high 160-189 High >190 Very high 01/08/2013 6:13 AM CDT 01/08/2013 6:50 AM CDT Narrative [facility] - 01/08/2013 3:55 PM CDT Tests Added on:LIPID PANEL Add On per General Requisition to specimen #265 Tests Added on:HEPATIC FUNC Add On per General Requisition to specimen #265 IS PATIENT ON HEPARIN? (Y OR N) N Rohit Puentes MD LAB - CHEMISTRY TOSHIA POPE Performing Organization Address City/[facility]/[place] [address], [facility] [phone] * GGT (01/05/2013 10:15 PM CDT) Only the most recent of2 resultswithin the time period is included. GGT 48 9 - 64 Units/L [facility] Serum 01/05/2013 10:1 5 PM CDT 01/05/2013 11:09 PM CDT Rohit Puentes MD LAB - CHEMISTRY TOSHIA POPE Performing Organization Address [facility] [place] [address], [facility] [phone] * MRI ANGIO NECK W CONTRAST (12/21/2012 [...] lupus erythematosus. Other potential etiologies would include [employer] vasculitis from other primary causes. 2. T2* [...] to a seizure protocol. MRA of the qnarmg-ln-Lgryvo was performed using a mbva-wt-xujjyz technique without contrast. Finally, contrast-enhanced MRA of [...] to a seizure protocol. MRA of the alquze-qm-Lkclvp was performedusing a oxyw-qp-irvple technique without contrast. Finally, contrast-enhanced MRA of [...] lupus erythematosus. Other potential etiologies would include [employer] vasculitis from other primary causes. 2. T2* [...] to a seizure protocol. MRA of the mlokqj-ni-Vcvpdp was performed using a rdzz-dm-vvrgjk technique without contrast. Finally, contrast-enhanced MRA of [...] to a seizure protocol. MRA of the lbcldt-cv-Aztlii was performedusing a bagj-ox-kxhzwh technique without contrast. Finally, contrast-enhanced MRA of [...] is included. Interpretation Serum Protein SEE NOTE [facility] Comment: Serum protein electrophoresis shows [...] by calling the Special Chemistry Laboratory at [phone]. Kimberly Fernando, Ph.D. Total Protein 6.0 6.0 - 8.3 g/dL [facility] Albumin 3.1(L) 3.3 - 5.6 G/DL [facility] Alpha-1 Globulins 0.3 0.1 - 0.3 G/DL [facility] Alpha-2 Globulins 1.0 0.5 - 1.0 G/DL [facility] Beta Globulins 0.9 0.6 - 1.1 G/DL [facility] Gamma Globulins 0.8 0.6 - 1.6 G/DL [facility] Venous blood specimen (specimen) 12/21/2012 12:42 PM CDT 12/21/2012 1:17 PM CDT Weston Espinosa MD LAB - CHEMISTRY ULYSSESJose G DE OLIVEIRAYVONNE [facility] Organization Address City/State/ZIP Co de Phone Number [address] [phone] * [place] LUMBAR PUNCTURE (12/21/2012 9:11 AM [...] CDT) Viral Culture No virus isolated. . [facility] Comment: Performed at: [facility] [id number] Digital Asset Coordinator: Wesley Mercer MD, Phone: [phone] Preliminary Report: No virus isolated at 4 days. Next report to follow after 7 days. Performed at: [address] [id number] Digital Asset Coordinator: Wesley Mercer MD, Phone: [phone] Preliminary Report: No virus isolated at 24 hours. Next report to follow after 4 days. Performed at: [address] [id number] Digital Asset Coordinator: Wesley Mercer MD, Phone: [phone] !! EDITED OR CORRECTED RESULTS !! RESULT PREVIOUSLY REPORTED : Preliminary Report: No virus isolated at 24 hours. Next report to follow after 4 days. Performed at: [address] [id number] Digital Asset Coordinator: Wesley Mercer MD, Phone: [phone] NOTIFIED [] AT 1344 ON 12/27/12 !! EDITED OR CORRECTED RESULTS !! RESULT PREVIOUSLY REPORTED : Preliminary Report: No virus isolated at 4 days. Next report to follow after 7 days. Performed at: [address] [id number] Digital Asset Coordinator: Wesley Mercer MD, Phone: [phone] Preliminary Report: No virus isolated at 24 hours. Next report to follow after 4 days. Performed at: [address] [id number] Digital Asset Coordinator: Wesley Mercer MD, Phone: [phone] !! EDITED OR CORRECTED RESULTS !! RESULT PREVIOUSLY REPORTED : Preliminary Report: No virus isolated at 24 hours. Next report to follow after 4 days. Performed at: [address] [id number] Digital Asset Coordinator: Wesley Mercer MD, Phone: [phone] NOTIFIED [] AT 1344 ON 12/27/12 NOTIFIED [] AT 0916 ON 12/31/12 Spinal fluid (substance) 12/21/2012 8:55 AM CDT 12/21/2012 9:44 AM CDT Historical Provider LAB - MICROBIOLOG Y ORDERABLES [address] [phone] * (ABNORMAL) HERPES SIMPLEX 1+2 ANTIBODY IGG CSF (12/21/2012 8:55 AM CDT) Herpes Simplex Virus 1/2 Antibody IgG Screen CSF 2.67(A) <=0.89 IV [facility] Comment: INTERPRETIVE INFORMATION: Herpes Simplex Virus Type [...] encephalitis. Test developed and characteristics determined by [facility]. See Compliance Statement B: [email or web address] Performed at: [facility] [address] [id number] Digital Asset Coordinator: Piyush Rabago , Phone: [phone] 12/21/2012 8:55 AM CDT 12/21/2012 9:44 AM CDT Historical Provider MD LAB - BODY FLUID ORDERABLES [address] [phone] * HERPES SIMPLEX 1+2 ANTIBODY IGM CSF (12/21/2012 8:55 AM CDT) Herpes Simplex Virus 1/2 Antibody IgM CSF 0.22 <=0.89 IV [facility] Comment: INTERPRETIVE INFORMATION: Herpes Simplex Virus Type [...] encephalitis. Test developed and characteristics determined by [facility]. See Compliance Statement B: [employer]/ Performed at: [facility] [employer] [address] [place] [address] [id number] Digital Asset Coordinator: Piyush Rabago , Phone: [phone] 12/21/2012 8:55 AM CDT 12/21/2012 9:44 AM CDT Historical Provider LAB - BODY FLUID ORDERABLES Performing Organization Address City/State/[facility] Co de Phone Number [address] [phone] * OLIGOCLONAL BANDS CSF+BLOOD PANEL (12/21/2012 8:55 AM CDT) Oligoclonal Bands 0 0 - 1 Bands [facility] Olig Antibody IgG See Note 768 - 1632 mg/dL [facility] Comment: Incomplete sample submission. Partial testing was performed at the client's request. Interpret results with caution. REFERENCE INTERVAL: Immunoglobulin G Access complete set of age- and/or gender-specific reference intervals for this test in the [employer] [facility] ([employer]). *ASSAY PERFORMED BY: [facility] [address], [place] [id number] Olig Antibody IgG CSF 5.2 0.0 - 6.0 mg/dL [facility] Comment: *ASSAY PERFORMED BY: [facility] [address], [place] [address] Olig-Albumin See Note 3500 - 5200 mg/dL [facility] Comment: Incomplete sample submission. Partial testing was performed at the client's request. Interpret results with caution. *ASSAY PERFORMED BY: [facility] [address], [place] [address] Olig-Albumin CSF 22 0 - 35 mg/dL [facility] Comment: *ASSAY PERFORMED BY: [facility] [address], [place] [address] Olig-Albumin Index See Note 0.0 - 9.0 ratio [facility] Comment: Incomplete sample submission. Partial testing was performed at the client's request. Interpret results with caution. *ASSAY PERFORMED BY: [facility] [address], [place] [address] Olig Antibody IgG Index SEE NOTE 0.28 - 0.66 ratio [facility] Comment: Incomplete sample submission. Partial testing was performed at the client's request. Interpret results with caution. *ASSAY PERFORMED BY: [facility] [address], [place] [address] Olig-CSF/ Albumin Ratio 0.24 0.09 - 0.25 ratio [facility] Comment: *ASSAY PERFORMED BY: [facility] [address], [place] [address] Oligoclonal Bands CSF NEGATIVE Negative [facility] Comment: *ASSAY PERFORMED BY: [facility] [address], [place] [address] Olig-CSF IgG Synthesis Rate SEE NOTE <=8.0 mg/d [facility] Comment: Incomplete sample submission. Partial testing was performed at the client's request. Interpret results with caution. *ASSAY PERFORMED BY: [facility] [address], [place] [address] Interpretation Olig See Note () [facility] Comment: Isoelectric focusing/immunofixation reveals no oligoclonal bands in the CSF. Although no serum sample was provided for concurrent testing, the absence of oligoclonal bands in the CSF can be interpreted as a negative result for oligoclonal bands. Approximately 5 percent of patients with clinically definitive multiple sclerosis will have a negative result. *ASSAY PERFORMED BY: [facility] [address], [place] [address] 12/21/2012 8:55 AM CDT 12/21/2012 9:44 AM CDT Narrative [facility] - 01/04/2013 1:28 PM CDT Please don't draw these labs until LP is done. These labs need to be drawn within 30min of LP. Historical Provider MD LAB - BODY FLUID ORDERABLES [address] [phone] * VARICELLA ZOSTER ANTIBODY IGM CSF (12/21/2012 8:55 AM CDT) Varicella zoster Virus Antibody IgM Titer CSF 0 <=0.90 ISR [facility] Comment: INTERPRETIVE INFORMATION: VZV Ab, IgM, CSF [...] barrier. Test developed and characteristics determined by [facility]. See Compliance Statement B: [email or web address] *ASSAY PERFORMED BY: [facility] [address], [place] [id number] 12/21/2012 8:55 AM CDT 12/21/2012 9:44 AM CDT Historical Provider LAB - BODY FLUID ORDERABLES [address] [phone] * VARICELLA ZOSTER ANTIBODY IGG CSF (12/21/2012 8:55 AM CDT) Varicella zoster Antibody IgG Titer CSF < 10.0 <=165.9 IV [facility] Comment: INTERPRETIVE INFORMATION: VZV Ab, IgG, CSF [...] barrier. Test developed and characteristics determined by [facility]. See Compliance Statement B: [email or web address] *ASSAY PERFORMED BY: [facility] [address], [place] [address] 12/21/2012 8:55 AM CDT 12/21/2012 9:44 AM CDT Historical Provider LAB - BODY FLUID ORDERABLES Performing Organization Address City/[facility]/ZIP Co de Phone Number [address] [phone] * CELL COUNT W DIFF CSF (12/21/2012 8:55 AM CDT) Only the most recent of2 resultswithin the time period is included. Fluid Type CSF [facility] Color Fluid COLORLESS [facility] Clarity Fluid CLEAR [facility] Xanthochromia NEGATIVE [facility] Volume Fluid 6 ML [facility] WBC, Fluid 1 MM3 [facility] RBC Fluid 3 /MM3 [facility] Lymphocyte Fluid 44 % [facility] Monocytes Fluid 44 % [facility] Macrophages Fluid 12 % [facility] Additional Comment [facility] Comment:ONLY 25 CELLS SEEN F OR DIFF. 12/21/2012 8:55 AM CDT 12/21/2012 9:44 AM CDT Historical Provider LAB - BODY FLUID ORDERABLES Performing Organization Address City/[facility]/ZIP Co de Phone Number [address] [phone] * CULTURE CSF+GRAM STAIN (12/21/2012 8:49 AM CDT) Only the most recent of2 resultswithin the time period is included. Culture CSF and Smear NO GROWTH AFTER ONE WEEK. [facility] Gram Stain NO ORGANISMS SEEN. GRAM STAINS ARE ROUTINELY SCREENED FOR THE PRESENCE OF POLYMORPHONUC LEAR CELLS. [facility] Spinal fluid (substance) 12/21/2012 8:49 AM CDT 12/21/2012 10:20 AM CDT Historical Provider LAB - MICROBIOLOG Y ORDERABLES Performing Organization Address City/[facility]/ZIP Co de Phone Number [address] [phone] * PROTEIN CSF (12/21/2012 8:47 AM CDT) Only the most recent of2 resultswithin the time period is included. Protein CSF 44 15 - 45 mg/dL [facility] 12/21/2012 8:47 AM CDT 12/21/2012 11:25 AM CDT Historical Provider LAB - BODY FLUID ORDERABLES Performing Organization Address City/[facility] [place] [address], [facility] [phone] * GLUCOSE CSF (12/21/2012 8:47 AM CDT) Only the most recent of2 resultswithin the time period is included. Glucose,CSF-ST AT 56 40 - 70 mg/dL [facility] 12/21/2012 8:47 AM CDT 12/21/2012 11:25 AM CDT Garrett Stone MD LAB - BODY FLUID ORDERABLES Performing Organization Address [facility] Co de Phone Number [address] [phone] * PERIPHERAL BLOOD SMEAR PATH REVIEW (12/19/2012 7:45 PM CDT) Manual Differential Reviewed CONFIRMED [facility] Comment: THE DIFFERENTIAL HAS BEEN REVIEWED AND ALL RESULTS HAVE BEEN CONFIRMED. 12/19/2012 7:45 PM CDT 12/19/2012 10:53 PM CDT Weston Espinosa MD LAB - HEMATOLOGY ORD ERABLES Performing Organization Address [facility] Co de Phone Number [address] [phone] * POTASSIUM URINE RANDOM (12/19/2012 7:10 PM CDT) Only the most recent of3 resultswithin the time period is included. Potassium Urine 32 mmol/L [facility] Comment: REFERENCE RANGE: NONE ESTABLISHED FOR RANDOM URINE SPECIMENS. Urine specimen (specimen) 12/19/2012 7:10 PM CDT 12/19/2012 7:37 PM CDT Tone Dillon MD LAB - URINE CHEMISTR Y ORDERABLES Performing Organization Address [facility] Co de Phone Number [address] [phone] * CREATININE URINE RANDOM (12/19/2012 7:10 PM CDT) Only the most recent of5 resultswithin the time period is included. Creatinine Random Urine 15 mg/dL [facility] Comment: REFERENCE RANGE: NONE ESTABLISHED FOR RANDOM URINE SPECIMENS. Urine specimen (specimen) 12/19/2012 7:10 PM CDT 12/19/2012 7:37 PM CDT Tone Dillon MD LAB - URINE CHEMISTR Y ORDERABLES Performing Organization Address [facility]/ZIP Co de Phone Number [address] [phone] * (ABNORMAL) HAPTOGLOBIN (12/19/2012 12:10 PM CDT) Haptoglobin 298(H) 14 - 258 mg/dL [facility] Comment:RESULT CONFIRMED BY DILUTION Venous blood specimen (specimen) 12/19/2012 12:10 PM CDT 12/19/2012 12:45 PM CDT Tone Dillon MD LAB - CHEMISTRY TOSHIA POPE Performing Organization Address [facility] Co de Phone Number [address] [phone] * (ABNORMAL) POTASSIUM BLOOD (12/17/2012 7:12 PM CDT) Only the most recent of2 resultswithin the time period is included. Pathologist [facility] Potassium 3.2(L) 3.5 - 4.5 mmol/L [facility] Venous blood specimen (specimen) 12/17/2012 7:12 PM CDT 12/17/2012 7:29 PM CDT Tone Dillon MD LAB - CHEMISTRY TOSHIA POPE Performing Organization Address [facility] Co de Phone Number [address] [phone] * EOSINOPHIL URINE SMEAR (12/17/2012 9:41 AM CDT) Pathologist [facility] Eosin Stain Urine NO EOSINOPHILS SEEN [facility] 12/17/2012 9:41 AM CDT 12/17/2012 10:30 AM CDT Tone Dillon MD LAB - URINE CHEMISTR Y ORDERABLES Performing Organization Address [facility] [place] [address], [facility] [phone] * CHLORIDE URINE RANDOM (12/17/2012 9:41 AM CDT) Chloride Random Urine 149 mmol/L [facility] Comment: REFERENCE RANGE: NONE ESTABLISHED FOR RANDOM URINE SPECIMENS. Urine specimen (specimen) 12/17/2012 9:41 AM CDT 12/17/2012 10:30 AM CDT Tone Dillon MD LAB - URINE CHEMISTR Y ORDERABLES Performing Organization Address [facility] Co de Phone Number [address] [phone] * OSMOLALITY BLOOD (12/16/2012 5:15 PM CDT) Osmolality 290 270 - 300 MOSM/KG [facility] Comment:RESULTS CONFIRMED BY REPEAT ANALYSIS. Venous blood specimen (specimen) 12/16/2012 5:15 PM CDT 12/16/2012 5:38 PM CDT Tone Dillon MD LAB - CHEMISTRY ORDE RABLES Performing Organization Address [facility] de Phone Number [address] [phone] * (ABNORMAL) PROTEIN URINE TIMED QUANTITATIVE (12/15/2012 11:30 AM CDT) Only the most recent of2 resultswithin the time period is included. Protein Urine < 7 mg/dL [facility] Protein 24 Hour Urine < 406(H) 77 - 197 MG/24HR [facility] Urine specimen (specimen) URINE SPECIMEN OBTAINED BY CLEAN CATCH PROCEDURE / Unknown 12/15/2012 11:30 AM CDT 12/15/2012 12:59 PM CDT Narrative [facility] - 12/15/2012 2:39 PM CDT HT 5'0 WT 68 KG SV=[id number] START 12-14-12 1100 STOP 12-15-12 1100 Tone Dillon MD LAB - URINE CHEMISTR Y ORDERABLES Performing Organization Address [facility] de Phone Number [address] [phone] * (ABNORMAL) CREATININE URINE TIMED (12/15/2012 11:30 AM CDT) Only the most recent of2 resultswithin the time period is included. Volume Timed Urine 5800 mL [facility] Collection Time Timed Urine 24 HR [facility] Creatinine 24 Hour Urine 0.5(L) 0.8 - 2.0 G/24 HR [facility] Urine specimen (specimen) URINE SPECIMEN OBTAINED BY CLEAN CATCH PROCEDURE / Unknown 12/15/2012 11:30 AM CDT 12/15/2012 12:59 PM CDT Narrative [facility] - 12/15/2012 2:39 PM CDT HT 5'0 WT 68 KG EL=[id number] START 12-14-12 1100 STOP 12-15-12 1100 Tone Dillon MD LAB - URINE CHEMISTR Y ORDERABLES [address] [phone] * IGG SUBCLASS 4 (12/14/2012 6:00 AM CDT) IgG Subclass 4 6 1 - 291 mg/dL [facility] Comment: Performed at: [address] [id number] Digital Asset Coordinator: Wesley Mercer MD, Phone: [phone] 12/14/2012 6:00 AM CDT 12/14/2012 8:16 AM CDT Jose Farrar MD LAB - CHEMISTRY TOSHIA POPE [address] [phone] * (ABNORMAL) COMPLETE PFT W/WO BRONCHODILATOR (12/13/2012 2:46 PM CDT) Impressions [facility] - 12/13/2012 2:46 PM CDT [facility] DEPARTMENT OF PULMONARY, CRITICAL CARE, AND SLEEP [...] note for further details Matthieu Moscoso MD Rn Clinician Director Pulmonary Hypertension program Division of Pulmonary ,Critical care and Sleep medicine [facility]. Narrative Procedure Note Provider, MD Garrett - 09/15/2017 IMPRESSION [facility] DEPARTMENT OF PULMONARY, CRITICAL CARE, AND SLEEP [...] note for further details Matthieu Moscoso MD Rn Clinician Director Pulmonary Hypertension program Division of Pulmonary ,Critical care and Sleep medicine [facility]. Tone Dillon MD RESPIRATORY THERAPY ORDERABLES Performing Organization Address [facility] Co de Phone Number [facility] RAD[facility] * PROTEIN URINE RANDOM QUANTITATIVE (12/13/2012 1:35 PM CDT) Only the most recent of2 resultswithin the time period is included. Protein Urine 25 mg/dL [facility] Comment: RESULTS CONFIRMED BY REPEAT ANALYSIS. REFERENCE RANGE: NONE ESTABLISHED FOR RANDOM URINE SPECIMENS. 12/13/2012 1:35 PM CDT 12/13/2012 1:53 PM CDT Tone Dillon MD LAB - URINE CHEMISTR Y ORDERABLES Performing Organization Address [facility] Co de Phone Number [address] [phone] * RHEUMATOID FACTOR BLOOD QUANTITATIVE (12/12/2012 6:30 AM CDT) Rheumatoid Factor < 15 <30 IU/mL [facility] Venous blood specimen (specimen) 12/12/2012 6:30 AM CDT 12/12/2012 6:48 AM CDT Tone Dillon MD LAB - CHEMISTRY TOSHIA POPE Performing Organization Address [facility] Co de Phone Number [address] [phone] * CYCLIC CITRUL PEPTIDE AB IGG (CCP) (12/12/2012 6:30 AM CDT) CCP Antibody IgG < 0.5 0.5 - 5.0 U/mL [facility] 12/12/2012 6:30 AM CDT 12/12/2012 6:48 AM CDT Tone Dillon MD LAB - CHEMISTRY TOSHIA POPE Performing Organization Address [facility] Co de Phone Number [address] [phone] * (ABNORMAL) URINALYSIS DIPSTICK AUTO (12/11/2012 7:30 PM CDT) Color UA ARLINE(A) STRW,YELLOW [facility] Clarity UA HAZY(A) CLEAR [facility] Specific [place] Urine 1.018 1.001 - 1.030 [facility] pH UA 6.0 5.0 - 8.0 [facility] Protein UA 30(A) <20 mg/dL [facility] Glucose UA 30(A) NEGATIVE mg/dL [facility] Ketones NEGATIVE NEGATIVE mg/dL [facility] Bilirubin UA 0.5(A) NEGATIVE mg/dL [facility] Bilirubin Comment COMMENT [facility] Comment:BILIRUBIN NOT CONFIR MED due to unavailable Ictotest test. Blood UA NEGATIVE NEGATIVE [facility] Nitrite UA NEGATIVE NEGATIVE [facility] Leukocyte Esterase NEGATIVE NEGATIVE [facility] Urobilinogen UA < 2.0 <2.0 mg/dL [facility] Urine specimen (specimen) URINE SPECIMEN OBTAINED BY CLEAN CATCH PROCEDURE / Unknown 12/11/2012 7:30 PM CDT 12/11/2012 7:55 PM CDT Tone Dillon MD LAB - URINALYSIS ORD ERABLES Performing Organization Address City/[facility]/ZIP Co de Phone Number [address] [phone] * (ABNORMAL) FIBRINOGEN ACTIVITY (12/09/2012 12:00 PM CDT) Fibrinogen Clauss 153(L) 170 - 400 mg/dL [facility] Plasma specimen (specimen) 12/09/2012 12:00 PM CDT 12/09/2012 12:04 PM CDT Tone Dillon MD LAB - COAGULATION OR DERABLES Performing Organization Address [facility]/ZIP Co de Phone Number [address] [phone] * (ABNORMAL) BILIRUBIN DIRECT (12/09/2012 2:50 AM CDT) Bilirubin Direct 3.7(H) 0.0 - 0.5 mg/dL [facility] 12/09/2012 2:50 AM CDT 12/09/2012 3:54 AM CDT Narrative [facility] - 12/09/2012 4:26 AM CDT IS PATIENT ON HEPARIN? (Y OR N) N Tone Dillon MD LAB - CHEMISTRY TOSHIA ALVINOYVONNE [address] [phone] * HEPATITIS SCREEN ACUTE (12/07/2012 1:30 AM CDT) Hepatitis A Virus Antibody IgM NONREACTIVE NONREACTIVE [facility] Hepatitis C Antibody NONREACTIVE NONREACTIVE [facility] Comment: Anti-HCV screen indicates no serologic evidence of past or current infection with Hepatitis C Virus. Patients with unexplained liver disease who are immunocompromised or suspected of having acute Hepatitis C infection may benefit from Nucleic Acid Test (YISEL) for Hepatitis C Viral RNA to confirm Hepatitis C status. Hepatitis B Virus Surface Antigen NONREACTIVE NONREACTIVE [facility] Hepatitis B Core Virus Antibody IgM NONREACTIVE NONREACTIVE [facility] 12/07/2012 1:30 AM CDT 12/07/2012 3:45 AM CDT Guru Baez MD LAB - CHEMISTRY TOSHIA POPE Performing Organization Address City/[facility]/ZIP Co de Phone Number [address] [phone] * NEISSERIA GONORRHOEAE DAT (11/19/2012 9:00 PM CDT) Neisseria gonorrhoeae DAT () [facility] Comment: Specimen: Swab Reference: [id number] Test: Nucleic Acid Amplification/Detection of Neisseria Gonorrhoeae Interpretation: Neisseria gonorrhoeae: Not Detected Reference Range: Not Detected This analysis was performed by an [place] FDA approved test methodology (Gen-Probe Aptima 2). Test performed at [facility], [address] [place] [address] This case has been personally reviewed and interpreted by the attending (teaching) pathologist. Final Diagnosis performed by Sultan Radha Bonilla MD, PhD. Electronically signed 11/23/2012 11/19/2012 9:00 PM CDT 11/19/2012 9:29 PM CDT Narrative Authorizing Provider Result Lamont Phelan MD LAB - MICROBIOLOGY [facility] [address] [phone] * CHLAMYDIA TRACHOMATIS DAT (11/19/2012 9:00 PM CDT) Chlamydia trachomatis DAT () [facility] Comment: Specimen: Swab Reference: [id number] Test: Nucleic Acid Amplification/Detection of Chlamydia Trachomatis Interpretation: Chlamydia trachomatis: Not Detected Reference Range: Not Detected This analysis was performed by an [place] FDA approved test methodology (Gen-Probe Aptima 2). Test performed at [facility], [address] [place] [address] This case has been personally reviewed and interpreted by the attending (teaching) pathologist. Final Diagnosis performed by Sultan Radha Bonilla MD, PhD. Electronically signed 11/23/2012 11/19/2012 9:00 PM CDT 11/19/2012 9:29 PM CDT Winter Phelan MD LAB - MICROBIOLOGY [facility] Performing Organization Address [facility]/[place] [address], [facility] [phone] * CHLAMYDIA + GC AMPLIFIED PROBE (10/28/2011 6:02 PM CDT) Chlamydia Amplified Probe Negative Negative 10/31/2011 1:18 PM CDT [facility] GC Amplified Probe Negative Negative 10/31/2011 1:18 PM CDT [facility] Miscellaneous samples (specimen) URINE / Unknown 10/28/2011 6:02 PM CDT 10/28/2011 6:07 PM CDT Narrative Authorizing Provider Result Lamont Ta MD LAB - MICROBIOLOGY [facility] [address] [place] [address] * (ABNORMAL) URINALYSIS MICROSCOPIC ONLY (10/28/2011 2:17 PM CDT) RBC UA 0-5 0 - 5 # /hpf 10/28/2011 3:26 PM CDT [facility] WBC UA 0-5 0 - 5 # /hpf 10/28/2011 3:26 PM CDT [facility] Bacteria UA 1+(A) None, Trace 10/28/2011 3:26 PM CDT [facility] Epithelial Cell UA 20-50(A) 0 - 5 10/28/2011 3:26 PM CDT [facility] Mucus UA Trace None, Trace 10/28/2011 3:26 PM CDT [facility] Urine specimen (specimen) URINE SPECIMEN OBTAINED BY CLEAN CATCH PROCEDURE / Unknown 10/28/2011 2:17 PM CDT 10/28/2011 2:32 PM CDT Billy Stubbs MD LAB - URINALYSIS OR DERABLES Performing Organization Address [facility] Co de Phone Number [facility] [address] [place] [address] * HCG URINE QUALITATIVE - POCT (IP) BEAKER (10/28/2011 2:10 PM CDT) HCG Qual Urine negative Negative [facility] POCT TESTING QC Verified yes Yes [facility] PO CT TESTING Urine specimen (specimen) URINE / Unknown 10/28/2011 2:10 PM CDT Billy Stubbs MD LAB - POINT OF CARE ORDERABLES Performing Organization Address [facility] Co de Phone Number [facility] POCT TESTING [address] [place] [address] * CARDIAC ECHOCARDIOGRAM COMPLETE ORDER (03/30/2010 11:12 AM DOBIE WORKER) Only the most recent of2 resultswithin the time period is included. Narrative Procedure Note Document, Scanned - 03/29/2010 2:06 PM DOBIE WORKER Scanned Document ECHO ORDERABLES * ECHO CONSULT - PEDIATRIC (03/11/2010 9:15 AM DOBIE WORKER) Only the most recent of2 resultswithin the time period is included. 03/11/2010 9:15 AM DOBIE WORKER Narrative [facility] - 03/11/2010 12:08 PM DOBIE WORKER , Congenital Transthoracic Echocardiogram 2D, M-mode, Doppler, and Color Doppler Name: THALIA ESPOSITO MR #: [id number] Study date: 03/11/2010 Age: 19 years : 1990 Gender: Female Ht: 61 in / 154.9 cm Wt: 124.7 lb / 56.7 kg BSA: 1.55 m HR: BP: / age: NATANAEL: Maternal age: REFERRING PHYSICIAN: Bob Varma MD ANAESTHESIOLOGIST: Olivia Bridges MD PEDIATRIC ECHO FRAMING MILL SUPERVISOR: Mireya Beltran RDCS Allergies: NKA History: Check [...] Color Doppler Name: THALIA ESPOSITO MR #: [id number] Study date: 03/11/2010 Age: 19 years : 1990 Gender: Female Ht: 61 in / 154.9 cm Wt: 124.7 lb / 56.7 kg BSA: 1.55 m HR: BP: / age: NATANAEL: Maternal age: REFERRING PHYSICIAN: Bob Varma MD ANAESTHESIOLOGIST: Olivia Bridges MD PEDIATRIC ECHO FRAMING MILL SUPERVISOR: Mireya Beltran RDCS Allergies: NKA History: Check [...] tiny PFO. Bob Varma MD ECHO ORDERABLES [facility] [address] [place] [address] * CT CHEST NON CONTRAST (03/11/2010 9:15 AM DOBIE WORKER) Anatomical Region Laterality Modality Chest Computed Tomogra phy 03/11/2010 10:4 7 AM DOBIE WORKER Impressions 03/11/2010 10:47 AM DOBIE WORKER 1. Persistent bilateral axillary lymphadenopathy. This has [...] nodules are seen. Narrative 03/11/2010 10:47 AM DOBIE WORKER Noncontrast CT scan of the chest performed [...] ANTIBODY PANEL (01/21/2010 2:30 PM CDT) Pathologist [facility] Cardiolipin Antibody IgG 13.66 <23 GPL [facility] Cardiolipin Antibody IgM 12.73(H) <11 MPL [facility] BLOOD SPECIMEN / Unknown 01/21/2010 2:30 PM CDT 01/21/2010 2:53 PM CDT Narrative Resulting Agency Comment Performed By [facility] [address] [place] [address] Elizabeth Hazel MD LAB - SEROLOGY TOSHIA POPE [facility] Organization Address City/State/[facility] de Phone Number [facility] [address] [place] [address] * (ABNORMAL) LUPUS ANTICOAGULANT PANEL (01/21/2010 2:30 PM CDT) Only the most recent of2 resultswithin the time period is included. PT (Lupus Anticoag) 11.4(L) 12.0 - 15.5 seconds [facility] PTT Lupus Anticoagulant 43 32 - 48 seconds [facility] dRVVT 34 33 - 44 seconds [facility] Thrombin Time Not Applicable 14.7 - 19.5 seconds [facility] Reptilase Time Not Applicable <=21.9 seconds [facility] PTT Heparin Neutralized Not Applicable 32 - 48 seconds [facility] PTT-D Corrected Not Applicable 32 - 48 seconds [facility] Platelet Neutralization Not Applicable Negative seconds [facility] dRVVT 1:1 Mix Not Applicable 33 - 44 seconds [facility] dRVVT Confirmatory Test Not Applicable Negative [facility] Hexagonal Phospholipid Neutral Not Applicable Negative [facility] Interpretation Lupus Anticoagulant [facility] Comment: Lupus anticoagulant not detected. The [...] PM CDT 01/21/2010 2:53 PM CDT Narrative [facility] - 01/24/2010 8:39 PM CDT 1 Resulting Agency Comment Performed By [facility] [place], [place] [address] Elizabeth Hazel MD LAB - HEMATOLOGY OR DERABLES Performing Organization Address City/State/[facility] Co de Phone Number [facility] [address] [place] [address] * BETA-2 GLYCOPROTEIN 1 ANTIBODY IGG/IGM PANEL (01/21/2010 2:30 PM CDT) Pathologist [facility] Beta-2 Glycoprotein Antibody IgG 12 0 - 20 SGU [facility] Beta-2 Glycoprotein Antibody IgM 11 0 - 20 SMU [facility] Comment Ref Lab [facility] Comment: TEST INFORMATION: Beta-2 Glycoprotein [...] PM CDT 01/21/2010 2:53 PM CDT Narrative [facility] - 01/27/2010 8:51 PM CDT 1 Resulting Agency Comment Performed By [facility] [place], [place] [address] Elizabeth Hazel MD LAB - CHEMISTRY ORD ERABLES Performing Organization Address City/[facility] Co de Phone Number [facility] [address] [place] [address] * VITAMIN D 1,25 DIHYDROXY (01/21/2010 2:30 PM CDT) Only the most recent of2 resultswithin the time period is included. Vitamin D, 1,25 Dihydroxy 29 15 - 75 pg/ml [facility] Comment Ref Lab [facility] Comment: TEST INFORMATION: Vitamin D, 1,25-Dihydroxy This test is primarily indicated during patient evaluation for hypercalcemia and renal failure. A normal result does not rule out Vitamin D deficiency. The recommended test for diagnosing Vitamin D deficiency is Vitamin D 25-hydroxy (1299756). BLOOD SPECIMEN / Unknown 01/21/2010 2:30 PM CDT 01/21/2010 2:53 PM CDT Narrative [facility] - 01/26/2010 9:10 PM CDT 1 Resulting Agency Comment Performed By [facility] [address] [place], [place] [address] Elizabeth Hazel MD LAB - CHEMISTRY ORD ERABLES Performing Organization Address [facility] Co de Phone Number [facility] [place] [address] * (ABNORMAL) BETA-2 GLYCOPROTEIN 1 ANTIBODY IGA (07/09/2009 3:30 PM CDT) Pathologist [facility] Beta-2 Glycoprotein Antibody IgA 37(H) 0 - 20 CHANDU [facility] BLOOD SPECIMEN / Unknown 07/09/2009 3:30 PM CDT Narrative Resulting Agency Comment Performed By [facility] [address] [place], [place] [address] Bob Varma MD LAB - SEROLOGY ORDER HEATHER Performing Organization Address City/[facility] Co de Phone Number [facility] * (ABNORMAL) CBC W MANUAL DIFFERENTIAL (07/09/2009 3:30 PM CDT) Pathologist [facility] WBC 4.77 4.5 - 11.0 K/cumm [facility] RBC 4.10 4.10 - 5.10 mill/cumm [facility] Hemoglobin 10.7(L) 12.0 - 16.0 gm/dl [facility] Hematocrit 31.9(L) 36.0 - 47.0 % [facility] MCV 77.8(L) 78.0 - 102.0 cu microns [facility] MCH 26.1 25.0 - 35.0 uug [facility] MCHC 33.5 31.0 - 37.0 % [facility] RDW 14.9 % [facility] MPV 9.8 fl [facility] Platelet Count 300 100 - 400 K/cumm [facility] Comment Manual Diff Done [facility] Band % Manual 3 % [facility] Neutrophils % Manual 77 31 - 78 % [facility] Lymphocytes % Manual 12(L) 13 - 54 % [facility] Monocytes % Manual 3(L) 4 - 13 % [facility] Eosinophils % Manual 1 0 - 8 % [facility] Atypical Lymphocyte % Manual 4 % [facility] RBC Morphology Slight Anisocytosis Poikylocytosis, Few Ovalocytes [facility] BLOOD SPECIMEN / Unknown 07/09/2009 3:30 PM CDT Bob Varma MD LAB - HEMATOLOGY ORD ERABLES [facility] * COMPLETE PFT (07/09/2009 12:00 AM CDT) 07/09/2009 Narrative Procedure Note Greg Peraza MD - 07/09/2009 12:00 AM CDT[facility] Pulmonary Function Studies Thalia is a 19-year-old [...] By: GREG PERAZA MD GA/raghavendra JOB ID: [id number] cc: SESAR COLMENARES MD Greg Peraza MD RESPIRATORY THERAPY ORDERABLES * CULTURE FUNGUS SKIN HAIR NAILS (06/22/2009 6:52 PM CDT) Report [facility] Comment: Final - CALCOFLUOR STAIN Heavy Yeast seen. CULTURE Growth of TRICHOPHYTON SPECIES NAIL SPECIMEN / Unknown 06/22/2009 6:52 PM CDT [facility]ology [facility] @ [facility] LAB - MICROBIO LOGY ORDERABLES [facility] * MRI LOWER EXT NON JOINT WITH [...] MILKA ORTEGA MD Released Date Time- 06/23/091022 System Support Developer- RANULFO JOHANSEN MD SUZANNA PEREA MARILYN A [...] ORTEGA MD Released Date Time- 06/23/09 1023 System Support Developerclaus JOHANSEN MD SUZANNA PEREA MARILYN A ORD- MAXWELL, MARILYN A CON- STCLAIR, ANGELA M PCP- COSTELLO, JOSEPH P III [facility]- Suzanna Danielle MD MR ORDERABLES * (ABNORMAL) CREATININE BLOOD (06/22/2009 2:45 PM CDT) Creatinine 0.41(L) 0.50 - 1.06 mg/dl [facility] Specimen Type/Condition no visible hemolysis [facility] BLOOD SPECIMEN / Unknown 06/22/2009 2:45 PM CDT Suzanna Danielle MD LAB - CHEMISTRY ORD ERABLES [facility] * MPO/IL 3 AUTOANTIBODIES PANEL (06/21/2009 3:32 AM CDT) Myeloperoxidase Antibody 1 0 - 19 AU/mL [facility] Serine Protease 3 14 0 - 19 AU/mL [facility] Comment Ref Lab [facility] Comment: REFERENCE INTERVALF Myeloperoxidase Abs, IgG 19 [...] / Unknown 06/21/2009 3:32 AM CDT Narrative [facility] - 06/25/2009 8:54 AM CDT 1 Resulting Agency Comment Performed By [facility] [address] [place] [address] Tiera Hurd DO LAB - CHEMISTRY ORD ERABLES [facility] * XR TIBIA AND FIBULA 2 VW RIGHT (06/21/2009 1:41 AM DOBIE WORKER) Anatomical Region Laterality Modality Lower Extremity Other 06/21/2009 1:41 AM DOBIE WORKER Narrative 06/21/2009 10:18 AM CDT Right tibia-fibula [...] Hurd DO DIAGNOSTIC IMAGING ORDERABLES Care Teams Perfume And Toilet Water Maker Relationship Specialty Start Date End Date Aurea Lott DO [address] [place] [phone] PCP - General 10/14/21 Jim Moreland MD [address] [facility] [place] [place] [address] Resident - PCP Internal Medicine 10/14/21
--- OUTSIDE RECORDS SUMMARY | 2024-06-12 17:43 | XMS_ITS | Encounter Summary ---
Author Organization [facility] Health Address [address] [place] [address] Care Team Providers Care Physical Meteorologist Name Role Phone Estephania Moise APRN-FARM PLANNER Primary Care Provider Aurea Lott DO Primary Care Provider Jim Moreland MD Unavailable [phone] Encounter Details Date Type Department Care Team (Late st Contact Info) Description 01/23/2018 Telephone [facility] [address] [facility] [address] [place] [address] Estephania Moise APRN-FARM PLANNER [address] [facility] [place] [address] Social History Tobacco Use Types Packs/Day Years [...] st Contact Info) Description 06/13/2024 8:30 AM AUTOMOTIVE MANUFACTURER Office Visit [facility] - Internal Med [address] [place] [phone] 11/12/2024 10:20 AM CDT Office Visit [facility] - Internal Med [address] [place] [phone] Aurea Lott DO [address] [facility] [address] [place] [address] documented as of this encounter Visit Diagnoses Not on filedocumented in this encounter Care Teams Physical Meteorologist Relationship Specialty Start Date End Date Estephania Moise, RESIDENTIAL CASE MANAGER-FARM PLANNER [address] [place] [address] PCP - General 08/15/17 10/13/21 Aurea Lott DO [address] [facility] [address] [place] [address] PCP - General 10/14/21 Jim Moreland MD [address] [place] [address] Resident - PCP Internal Medicine 10/14/21 documented as of this encounter
--- OUTSIDE RECORDS SUMMARY | 2024-06-12 17:43 | XMS_ITS | Encounter Summary ---
Author Organization [facility] Health Address [address] [facility] [place] [address] Care Team Providers Care Magnetic Doctor Name Role Phone Estephania Moise REMOTE OPERATIONS PRODUCER-FELTER [employer]S Primary Care Provider Aurea Lott DO Primary Care Provider [phone] Jim Moreland MD Unavailable [phone] Encounter Details Date Type Department Care Team (Late st Contact Info) Description 12/17/2019 Telephone [facility] [address] [place] [address] Akosua Worley MD No info [...] only seen him through residents in the [facility] office. She was originally scheduled with Dr. [...] st Contact Info) Description 06/13/2024 8:30 AM BLEACH MIXER Office Visit [facility] - Internal Med [address] [place] [phone] 11/12/2024 10:20 AM CDT Office Visit [facility] - Internal Med [address] [place] [phone] Aurea Lott DO [address] [facility] [address] [facility] [place] [address] documented as of this encounter Visit Diagnoses Not on filedocumented in this encounter Care Teams Magnetic Doctor Relationship Specialty Start Date End Date Estephania Moise, REMOTE OPERATIONS PRODUCER-FELTER [employer] [address] [place] [address] PCP - General 08/15/17 10/13/21 Aurea Lott DO [address] [facility] [address] [facility] [place] [address] PCP - General 10/14/21 Jim Moreland MD [address] [facility] [place] [phone] Resident - PCP Internal Medicine 10/14/21 documented as of this encounter
--- OUTSIDE RECORDS SUMMARY | 2024-06-12 17:43 | XMS_ITS | Encounter Summary ---
Author Organization [facility] Health Address [address] [place] [address] Care Team Providers Care Video Game Creator Name Role Phone Estephania Moise APRN-SALES SPECIALIST Primary Care Provider Aurea Lott DO Primary Care Provider [phone] Jim Moreland MD Unavailable [phone] Reason for Visit * Reason Onset Date Comments POST COMPLICATIONS 10/09/2017 post p artum depression symptoms Encounter Details Date Type Department Care Team (Late st Contact Info) Description 10/09/2017 Nurse Triage [facility] General Internal Medicine 36[address] [facility] 206 [place] [address] Estephania Moise APRN-CNP [address] OF [facility] [place] [address] POST COMPLICATIONS (post depression symptoms ) Social [...] verbalized understanding. Scheduled 10-10-17 @ 2:00 with CRUCIBLE FURNACE TENDER Scheduled 10-10-17 @ 9:20am ACS Reason for [...] Patient reports September 29 Protocols used: - [id number] Disposition provided to be seen in acute care clinic within 3 days per protocol. Patient warm transfered to [facility] scheduling team for assistance with scheduling an appointment..If anything new develops,if anything gets worse or if you become increasingly concerned for any reason, please seek out immediate medical Attention. documented in this encounter Plan of Treatment Upcoming Encounters Date Type Department Care Team (Late st Contact Info) Description 06/13/2024 8:30 AM SPOOLING MACHINE OPERATOR Office Visit [facility] - Internal Med [address] [place] [address], [place] [address] 11/12/2024 10:20 AM CDT Office Visit [facility] - Internal Med [address] [place] [address] Aurea Lott DO 1225 [facility] 2L DIV OF [facility] [place] [address] documented as of this encounter Visit Diagnoses Not on filedocumented in this encounter Care Teams Video Game Creator Relationship Specialty Start Date End Date Estephania Moise, HEAVY LINE TECHNICIAN-SALES SPECIALIST [address] [place] [address] PCP - General 08/15/17 10/13/21 Aurea Lott DO 1225 [facility] 2[place] [address] PCP - General 10/14/21 Jim Moreland MD 1201 [facility] [place] [address] Resident - PCP Internal Medicine 10/14/21 documented as of this encounter
--- OUTSIDE RECORDS SUMMARY | 2024-06-12 17:43 | XMS_ITS | Encounter Summary ---
Author Organization [facility] Health Address [address] [place] [address] Care Team Providers Care Vocational Adviser Name Role Phone Estephania Moise APRN-BI TESTER Primary Care Provider Aurea Lott DO Primary Care Provider [phone] Jim Morelnad MD Unavailable [phone] Reason for Visit * Reason Onset Date Comments Headache 08/06/2018 Encounter Details Date Type Department Care Team (Late st Contact Info) Description 08/06/2018 Telephone [facility] General Internal Medicine 3660 [facility] 206 [place] [address] Estephania Moise APRN-BI TESTER [address] [place] [address] Headache Social History Tobacco Use Types Packs/Day [...] and is requesting to be contacted at [phone] by [email or web address] to further discuss this matter Message routed to the provider for further review and assistance documented in this encounter Plan of Treatment Upcoming Encounters Date Type Department Care Team (Late st Contact Info) Description 06/13/2024 8:30 AM SPEECH AND HEARING DIRECTOR Office Visit [facility] Physician [facility] - Internal Med [address] [place] [phone] 11/12/2024 10:20 AM CDT Office Visit [facility] - Internal Med [address] [place] [address], [place] [address] Aurea Lott, DO [address] [place] [address] [place] [address] documented as of this encounter Visit Diagnoses Not on filedocumented in this encounter Care Teams Vocational Adviser Relationship Specialty Start Date End Date Estephania Moise, LEATHER SPRAYER-BI TESTER 3660 [place] [address] PCP - General 08/15/17 10/13/21 Aurea Lott DO [address] [place] [address] PCP - General 10/14/21 Jim Moreland MD [address] [facility] [place] [phone] Resident - PCP Internal Medicine 10/14/21 documented as of this encounter
--- OUTSIDE RECORDS SUMMARY | 2024-06-12 17:43 | XMS_ITS | Encounter Summary ---
Author Organization [facility] Health Address [address] [facility] [place] [place] [address] Care Team Providers Care V Belt Coverer Name Role Phone Estephania Moise APRN-THERAPEUTIC MASSAGE TECHNICIAN Primary Care Provider Aurea Lott DO Primary Care Provider [phone] Jim Moreland MD Unavailable [phone] Reason for Visit * Reason Onset Date Comments Headache 08/08/2018 Encounter Details Date Type Department Care Team (Late st Contact Info) Description 08/08/2018 Nurse Triage [facility] General Internal Medicine [address] [facility] [address] 206 [place] [address] Estephania Moise APRN-THERAPEUTIC MASSAGE TECHNICIAN [address] [facility] 2L [facility] [place] [address] Headache Social History Tobacco Use Types Packs/Day [...] 3:11 PM CDT [place] called pt d/t Decision Lenshart message received. NewHivehart message I???m in a lot of pain [...] conference to schedulers. Upon conference, pt disconnected. Associate Professor Of Pathology verbalized will reach back out to pt to try and reach to schedule ACS visit. Reason for Disposition ??? [1] Weakness of the face, arm or leg on one side of the body AND [2] new onset Protocols used: [id number] Called pt back and unable to reach. Left VM to CB office to sched for ACS visit and left CB# [phone] and closing statement. Appt sched w/ Estephania Gutierrez 08/15/18 @ 9:50am documented in this encounter Plan of Treatment Upcoming Encounters Date Type Department Care Team (Late st Contact Info) Description 06/13/2024 8:30 AM OCCUPATIONAL HEALTH SPECIALIST Office Visit [facility] Group - Internal Med [address] [place] [address], [place] [address] 11/12/2024 10:20 AM CDT Office Visit [facility] - Internal Med [address] [place] [address], [place] [address] Aurea Lott DO 1225 [facility] 2L DIV OF [facility] [place] [address] documented as of this encounter Visit Diagnoses Not on filedocumented in this encounter Care Teams V Belt Coverer Relationship Specialty Start Date End Date Estephania Moise, PATTERN MECHANIC-THERAPEUTIC MASSAGE TECHNICIAN 3660 [place] [address] PCP - General 08/15/17 10/13/21 Aurea Lott DO 1225 [facility] 2L DIV OF [facility] [place] [place] [address] PCP - General 10/14/21 Jim Moreland MD 1201 [facility] [place] [address] Resident - PCP Internal Medicine 10/14/21 documented as of this encounter
--- OUTSIDE RECORDS SUMMARY | 2024-06-12 17:43 | XMS_ITS | Encounter Summary ---
Author Organization [facility] Health Address [address] [facility] [place] [address] Care Team Providers Care Burial Vault Deliverer And Installer Name Role Phone Estephania Moise APRN-PAYROLL SPECIALIST Primary Care Provider Aurea Lott DO Primary Care Provider Jim Moreland MD Unavailable [phone] Reason for Visit * Reason Onset Date Comments Appointment 03/19/2018 Encounter Details Date Type Department Care Team (Late st Contact Info) Description 03/19/2018 Telephone [facility] General Internal Medicine 3660 [facility] 206 [place] [address] Estephania Moise APRN-PAYROLL SPECIALIST [address] OF [facility] [place] [address] Appointment Social History Tobacco Use Types Packs/Day [...] a message t contact the scheduling department [phone] BER * Telephone Encounter - Zohreh Christensen - 03/20/2018 10:37 AM CST 2nd Attempt Called the patient and left a message to contact the scheduling department at [phone] BER * Telephone Encounter - Zohreh Christensen - 03/19/2018 10:50 AM CST 1st attempt Called pt left message to contact scheduling department at [phone] BER documented in this encounter Plan of Treatment Upcoming Encounters Date Type Department Care Team (Late st Contact Info) Description 06/13/2024 8:30 AM ENROBER Office Visit [facility] - Internal Med [address] [place] [address] 11/12/2024 10:20 AM CDT Office Visit [facility] - Internal Med [address] [place] [address] Aurea Lott, DO [address] [place] [address] OF [facility] [place] [address] documented as of this encounter Visit Diagnoses Not on filedocumented in this encounter Care Teams Burial Vault Deliverer And Installer Relationship Specialty Start Date End Date Estephania Moise, INTERVENTIONAL TECH-PAYROLL SPECIALIST [address] [place] [address] PCP - General 08/15/17 10/13/21 Aurea Lott DO [address] [place] [address] PCP - General 10/14/21 Jim Moreland MD [address] [place] [phone] Resident - PCP Internal Medicine 10/14/21 documented as of this encounter
--- OUTSIDE RECORDS SUMMARY | 2024-06-12 17:43 | XMS_ITS | Clinical Summary ---
Author Organization [facility] Address [address] [facility] [place] [address] Care Team Providers Care Reclamation Furnace Operator Name Role Phone Aurea Lott DO Primary Care Provider [phone] Jim Moreland MD Unavailable [phone] Source Comments [facility],non-owned Affiliates and Associated Physician Practices is amultiple site organization consisting of ambulatory clinics and hospital sitesin [place], [place], [place] and [place]. This disclosure is being madepursuant to the Care Everywhere program and may not contain all information available regarding this patient. Last updated 17.[facility] Allergies Active Allergy Reactions Criticality Noted Date Comments Amoxicillin Urticaria Medium 04/01/2019 Sulfamethoxazole W-Trimethoprim VEHICLE BODY BUILDER Dysfunction 08/09/2017 mentql confusion Iron Vomiting 10/20/2020 Vomits oral iron Lamotrigine Itching 04/21/2022 Penicillins Urticaria,Unknown Medium 09/25/2020 Metoclopramide VEHICLE BODY BUILDER Dysfunction 08/09/2017 Paralysis Medications * Be aware [...] tabletIndications:Sys temic lupus erythematosus (SLE) in adult (HCC),alf current use of immunosuppressive drug,Therapeutic drug monitoring [...] the patient should be referred to a director phone for further care. If there is no [...] risk of heart block with +SSA; undergoing [place] interval surveillance Q2 weeks from 16 to 28 weeks (AHA recommendations). Restrictive lung disease 08/09/2017 Overview (09/25/2020): Related to SLE, stable - Followed by operations and intelligence assistant, next visit 12/02/20 PFTs 08/28 Interpretation: The [...] 2012: related to ICU stay Anxiety 07/31/2017 alf current use of immunosuppressive drug 07/31/2017 SLE (systemic lupus erythematosus) 12/06/2012 Overview (09/25/2020): Diagnosed in 2007 (Positive SSA Ab. Dx based on cerebritis, pancreatitis, restrictive lung disease, with +JEAN-PAUL, dsDNA, Sm, INSURANCE OFFICE MANAGER chromatin). Sees Rheumatology. Complicated by restrictive lung [...] (AF LURIA, FLUZONE TRIVALENT; 6MO+) (IIV3) 01/15/2013 CovHandpay primary monoval ent 12+ yr 0.3mL Purple [...] st Contact Info) Description 06/13/2024 8:30 AM MANAGER ANIMATION Office Visit [facility] - Internal Med [address] [place] [address], [place] [address] 11/12/2024 10:20 AM CDT Office Visit [facility]ician [facility] - Internal Med [address] [place] [address] Aurea Lott, DO [address] [place] [address] OF [facility] [place] [address] Health Maintenance Due Date Last Done Comments [...] IMAGE-GUIDED RFLX HPV+CT/NG+TRICH Routine 05/15/2020 3:11 PM MANAGER ANIMATION Screening for cervical cancer Screen for STD (sexually transmitted disease) from Last 3 Months or Most Recently Relevant to Health Maintenance Results * HEPATITIS C AB W/RFLX TO HCV RNA QN PCR (10/09/2020) Hepatitis C Antibody NON-REACTI VE NON-REACT JAVAD [facility] Signal to Cut-Off 0.02 <1.00 [facility] Comment: HCV antibody was non-reactive. There is no laboratory evidence of HCV infection. In most cases, no further action is required. However, if recent HCV exposure is suspected, a test for HCV RNA (test code 76692) is suggested. For additional information please refer to http://education.Platogo.Tus reQRdos/faq/WWZ90i3 (This link is being provided for informational/ educational purposes only.) REPORT COMMENT: FASTING:NO Test Performed at: [facility] [address] [place] [address] ANDRE ARAUJO DO,MPH Blood BLOOD SPECIMEN / Unknown 10/09/2020 10/09/2020 2:07 PM CDT Isa Rutledge MD LAB - CHEMISTRY ORD ERABLES [facility] [address] [place] [address] * HIV-1 HIV-2 ANTIBODY + HIV P24 [...] purpose. For additional information please refer to http://education.Excorda/faq/SIW669 (This link is being provided for informational/ educational purposes only.) The performance of this assay has not been clinically validated in patients less than 2 years old. Test Performed at: [facility] [address] [place] [address] ANDRE ARAUJO DO,MPH Blood BLOOD SPECIMEN / Unknown 10/09/2020 10/09/2020 2:07 PM CDT Isa Rutledge MD LAB - CHEMISTRY ORD ERABLES [facility] [address] [place] [address] * PAP IMAGE-GUIDED RFLX HPV+CT/NG+TRICH (05/15/2020 3:11 PM MANAGER ANIMATION) Pathologist [facility] Case Report Gynecologic Cytology Report Case: [id number] Authorizing Provider: Garrick Farley MD Collected: 05/15/2020 03:11 PM Ordering Location: [facility] Received: 05/18/2020 12:24 PM [facility] Screen: Guru Ellis Specimen: THINPREP - IMAGE GUIDED, Cervicovaginal 05/19/2020 3:44 PM MANAGER ANIMATION [facility] LMP preg 05/19/2020 3:44 PM MANAGER ANIMATION [facility] Menstrual Status 05/19/19 21 3:44 PM MANAGER ANIMATION [facility] Comment:7w6d Specimen Adequacy Satisfactory for evaluation, endocervical/trans formation zone component present. 05/19/2020 3:44 PM MANAGER ANIMATION [facility] Categorization Negative for intraepithelial lesion or malignancy. 05/19/2020 3:44 PM MANAGER ANIMATION [facility] Interpretation OXIDATION OPERATOR Negative for intraepithelial lesion or malignancy. 05/19/2020 3:44 PM MANAGER ANIMATION [facility] Other Predominance of Coccobacilli consistent with shift in vaginal nenita (vaginosis). Inflammation present. 05/19/2020 3:44 PM MANAGER ANIMATION [facility] Pap Footnote The Pap Smear is a screening test. False positive and false negative results occur. Negative results do not preclude abnormalities, thus clinical correlation is required. This specimen was evaluated by the ThinPrep Imaging System along with an additional manual rescreening by a center receptionist and/or pathologist. 05/19/2020 3:44 PM MANAGER ANIMATION [facility] Embedded Images 3:44 PM [facility] Pathology/Cytolo gy VAGINA AND CERVIX, CS / Unknown 05/15/2020 3:11 PM MANAGER ANIMATION 05/18/2020 12:24 PM MANAGER ANIMATION Garrick Farley MD LAB - PATHOLOGY/CYTO LOGY ORDERABLES Performing Organization Address City/State/[facility] Co de Phone Number [facility] [address] [phone] from Last 3 Months or Most Recently [...] 4:56 AM 10/02/2017 7:23 PM Care Teams Reclamation Furnace Operator Relationship Specialty Start Date End Date Aurea Lott DO [address] [place] [phone] PCP - General 10/14/21 Jim Moreland MD [address] [place] [phone] Resident - PCP Internal Medicine 10/14/21
--- OUTSIDE RECORDS SUMMARY | 2024-06-12 17:43 | XMS_ITS | Clinical Summary ---
Author Organization [facility] Address [address] [place] [address] Care Team Providers Care Tare Man Name Role Phone None, Provider MD Primary Care Provider Unavaila ble Allergies Active Allergy Reactions Criticality Noted Date Comments Amoxicillin Hives 04/16/2017 Azathioprine Hives Medium 09/09/2021 C/o itchy bumps. Sulfamethoxazole-Trimeth oprim Other (see comment) 04/16/2017 Memory loss, black outs Lamotrigine Itching 04/21/2022 Penicillins Unknown Medium 09/25/2020 Other reaction(s): Urticaria Metoclopramide Other (see comment) 04/16/2017 paralysis Medications ondansetron (ZOFRAN ODT) 4 MG disintegrating tablet Take 1 tablet (4 mg total) by mouth every 8 (eight) hours as needed for Nausea. 15 tablet 2 Active hydroxychloroquine 200 MG tablet Take 150 mg by mouth 2 (two) times daily. 2 Active sertraline 100 MG tablet Take 200 mg by mouth nightly. 2 Active acetaminophen 500 MG tablet Take 1,000 mg by mouth every 6 (six) hours as needed for Pain. Active hydrOXYzine 25 MG tablet Take 25 mg by mouth nightly. Active omeprazole 20 MG capsule Take 20 mg by mouth daily as needed. Active naproxen 500 MG tabletIndications:R ight low back pain,Right ovarian cyst Take 1 tablet (500 mg total) by mouth 2 (two) times daily with meals. 60 tablet 2 Active traMADol 50 MG tabletIndications:A cute Pain < 7 Day Supply Take 1 tablet (50 mg total) by mouth every 6 (six) hours as needed for Pain. Indications : Acute Pain < 7 Day Supply 20 tablet 2 Active lidocaine viscous 2 % solution Take 5 mLs by mouth as needed for Pain. 100 mL 2 Active ondansetron (ZOFRAN-ODT) 4 MG disintegrating tablet Take 1 tablet (4 mg total) by mouth every 8 (eight) hours as needed for Nausea. 20 tablet 3 Active famotidine (PEPCID) 20 MG tablet Take 1 tablet (20 mg total) by mouth 2 (two) times daily. 60 tablet 3 Active Active Problems No known active problems Family History Medical History Relation Comments Diabetes Father Stroke Father Cancer Mother Heart Disease Paternal Grandfather Relation Status Comments Father Alive Mother Alive Paternal Grandfather Social History Tobacco Use Types Packs/Day Years Used Date Smoking Tobacco: Never Smokeless Tobacco: Never Alcohol Use Standard Drinks/Week Comments Yes 0 (1 standard drink = 0.6 oz pur e alcohol) rarely Comments No Sex and Gender Information Value Date Recorded Sex Assigned at Female 05/02/2023 2:01 PM NATURALIST Legal Sex Female 9:31 AM CDT Gender Identity Female 05/02/2023 2:01 PM NATURALIST Sexual Orientation Bisexual 05/02/2023 2: 01 PM NATURALIST Last Filed Vital Signs Vital Sign Reading Time Taken Comments Blood Pressure 129/83 05/02/2023 2:02 PM NATURALIST Pulse 78 05/02/2023 2:02 PM NATURALIST Temperature 36.4 C (97.6 F) 05/02/2023 10:24 AM NATURALIST Respiratory Rate 18 05/02/2023 2:02 PM NATURALIST Oxygen Saturation 100% 05/02/2023 2:02 PM NATURALIST Inhaled Oxygen Concentration - - Weight 68 kg (150 lb) 05/02/2023 10:24 AM NATURALIST Height 154.9 cm (5' 1 ) 05/02/2023 10:24 AM NATURALIST Body Mass Index 28.34 05/02/2023 10:24 AM NATURALIST Plan of Treatment Health Maintenance Due Date Last Done Comments Cervical Cancer Screening Pap Smear (Age 30 to 64) Every 3 Years 1992 Annual Physical 1995 Hepatitis C 2010 Hepatitis B Vaccines (1 of 3 - 19+ 3-dose series) 2011 HPV Vaccines (2 - 3-dose series) 02/14/2018 01/17/2018 Cervical Cancer Screening Pap with HPV Testing (Age 30 to 64) Every 5 Years 2022 Cervical Cancer Screening with HPV 2022 COVID-19 Vaccine ( season) 2023 09/09/2020, 08/19/2020 Influenza Adult (#1) 2024 04/13/2021, 01/16/2021, 12/02/2017, Additional history exists DTaP, Tdap and Td Vaccines (3 - Td or Tdap) 10/20/2030 10/20/2020, 08/23/2017, 08/26/1993 Pneumococcal Vaccine: Pediatrics (0 to 5 Years) and At-Risk Patients (6 to 64 Years) Aged Out 11/10/2021, 12/23/2012 No longer eligibl e based on patient's age to complete this topic Meningococcal B Vaccine Aged Out No l onger eligible based on patient's age to complete this topic Meningococcal Vaccine Aged Out No sloan xena eligible based on patient's age to complete this topic RSV Immunizations Under 20 Months Aged Out No longer eligible based on patient's age to complete this topic Insurance [facility] [employer] Care Teams Tare Man Relationship Specialty Start Date End Date None, Provider, PCP - General 03/31/21
--- OUTSIDE RECORDS SUMMARY | 2024-06-12 17:43 | XMS_ITS | Encounter Summary ---
Author Organization [facility] Health Address [address] [facility] [place] [address] Care Team Providers Care Party Plan Sales Unit Advisor Name Role Phone Estephania Moise APRN-SENIOR ENVIRONMENTAL ENGINEER Primary Care Provider Aurea Lott DO Primary Care Provider Jim Moreland MD Unavailable [phone] Reason for Visit * Reason Onset Date Comments MEDICATION REFILL 02/26/2018 Encounter Details Date Type Department Care Team (Late st Contact Info) Description 02/26/2018 Refill [facility] Rheumatology [address] [place] [address] Jana Saenz DO [address] [place] [address] MEDICATION REFILL Social History Tobacco [...] HCQ refilled. Jana Saenz DO Rheumatology Fellow [facility] Pager: [phone] AL CARE TAKER documented in this encounter Plan of Treatment Upcoming Encounters Date Type Department Care Team (Late st Contact Info) Description 06/13/2024 8:30 AM ANIMAL CARE TAKER Office Visit [facility] - Internal Med [address] [place] [phone] 11/12/2024 10:20 AM CDT Office Visit [facility] - Internal [address] [address] Aurea Lott DO [address] [place] [address] [place] [address] documented as of this encounter Visit Diagnoses Diagnosis Systemic lupus erythematosus (SLE) in adult (HCC) Anxiety Anxiety state, unspecified with one fetus in second trimester (HCC) [facility] current use of immunosuppressive drug Encounter for therapeutic drug monitoring documented in this encounter Care Teams Party Plan Sales Unit Advisor Relationship Specialty Start Date End Date Estephania Moise APRN-SENIOR ENVIRONMENTAL ENGINEER [address] [place] [address] PCP - General 08/15/17 10/13/21 Aurea Lott DO [facility] [facility] 2L DIV [place] [address] PCP - General 10/14/21 Jim Moreland MD [address] [facility] [place] [address] Resident - PCP Internal Medicine 10/14/21 documented as of this encounter
--- OUTSIDE RECORDS SUMMARY | 2024-06-12 17:43 | XMS_ITS | Referral Summary ---
Author Organization [facility] Address [address] [place] [address] Care Team Providers Care Automobile Service Writer Name Role Phone Aurea Lott DO Primary Care Provider Jim Moreland MD Unavailable [phone] Source Comments [facility],non-owned Affiliates and Associated Physician Practices is amultiple site organization consisting of ambulatory clinics and hospital sitesin [place], [place] and [place]. This disclosure is being madepursuant to the Care Everywhere program and may not contain all information available regarding this patient. Last updated 17.[facility] Encounters Date Type Department Care Team Description 06/11/2024 Travel 04/22/2024 Travel from Last 3 Months Allergies Active Allergy Reactions Criticality Noted Date Comments Amoxicillin Urticaria Medium 04/01/2019 Sulfamethoxazole W-Trimethoprim SLAG WORKER Dysfunction 08/09/2017 mentql confusion Iron Vomiting 10/20/2020 Vomits oral iron Lamotrigine Itching 04/21/2022 Penicillins Urticaria,Unknown Medium 09/25/2020 Metoclopramide SLAG WORKER Dysfunction 08/09/2017 Paralysis Medications * Be aware [...] tabletIndications:Sys temic lupus erythematosus (SLE) in adult (HCC),buttermaker current use of immunosuppressive drug,Therapeutic drug monitoring [...] the patient should be referred to a automatic mounter for further care. If there is no [...] risk of heart block with +SSA; undergoing RI interval surveillance Q2 weeks from 16 to 28 weeks (AHA recommendations). Restrictive lung disease 08/09/2017 Overview (09/25/2020): Related to SLE, stable - Followed by farm machine tender, next visit 12/02/20 PFTs 08/28 Interpretation: The [...] 2013: related to ICU stay Anxiety 07/31/2017 [facility] current use of immunosuppressive drug 07/31/2017 SLE (systemic lupus erythematosus) 12/06/2012 Overview (09/25/2020): Diagnosed in 2007 (Positive SSA Ab. Dx based on cerebritis, pancreatitis, restrictive lung disease, with +JEAN-PAUL, dsDNA, Sm, RECLAIMER chromatin). Sees Rheumatology. Complicated by restrictive lung [...] (AF LURIA, FLUZONE TRIVALENT; 6MO+) (IIV3) 01/15/2013 [employer] primary monoval ent 12+ yr 0.3mL Purple [...] st Contact Info) Description 06/13/2024 8:30 AM WAGON WINDER Office Visit [facility] Physician [facility] - Internal Med [address] [place] [phone] 11/12/2024 10:20 AM CDT Office Visit [facility] - Internal Med [address] [place] [address], [place] [address] Aurea Lott, DO [address] [place] [address] OF [facility] [place] [address] Procedures Procedure Name Priority Date/Time Associated Diagnosis Comments HEPATITIS C AB W/RFLX TO HCV RNA QN PCR Routine 10/09/2020 Supervision of high risk in second trimester (HCC) HIV-1 HIV-2 ANTIBODY + HIV P24 AG PANEL Routine 10/09/2020 Supervision of high risk in second trimester (HCC) PAP IMAGE-GUIDED RFLX HPV+CT/NG+TRICH Routine 05/15/2020 3:11 PM WAGON WINDER Screening for cervical cancer Screen for STD [...] a test for HCV RNA (test code 15377) is suggested. For additional information please refer to http://[employer].Basic-Fit/faq/RHV17t8 (This link is being provided for informational/ educational purposes only.) REPORT COMMENT: FASTING:NO Test Performed at: [facility] [address] [place] [address] ANDRE ARAUJO DO,MPH Blood BLOOD SPECIMEN / Unknown 10/09/2020 10/09/2020 2:07 PM CDT Isa Rutledge MD LAB - CHEMISTRY ORD ERABLES [facility] [address] [place] [address] * HIV-1 HIV-2 ANTIBODY + HIV P24 AG PANEL (10/09/2020) [facility] HIV Screen 4th Generation w Reflex NON-REACT [...] purpose. For additional information please refer to http://[employer].Basic-Fit/faq/TFQ481 (This link is being provided for informational/ educational purposes only.) The performance of this assay has not been clinically validated in patients less than 2 years old. Test Performed at: [facility] [address] [place] [address] ANDRE ARAUJO DO,MPH Blood BLOOD SPECIMEN / Unknown 10/09/2020 10/09/2020 2:07 PM CDT Isa Rutledge MD LAB - CHEMISTRY ORD ERABLES [facility] [address] [place] [address] * PAP IMAGE-GUIDED RFLX HPV+CT/NG+TRICH (05/15/2020 3:11 PM WAGON WINDER) Case Report Gynecologic Cytology Report Case: [id number] Authorizing Provider: Garrick Farley MD Collected: 05/15/2020 03:11 PM Ordering Location: [facility] Obstetrics Received: 05/18/2020 12:24 PM [facility]necology [facility] Screen: Guru Ellis Specimen: THINPREP - IMAGE GUIDED, Cervicovaginal 05/19/2020 3:44 PM WAGON WINDER [facility] LMP preg 05/19/2020 3:44 PM WAGON WINDER [facility] Menstrual Status 05/19/19 3:44 PM WAGON WINDER [facility] Comment:7w6d Specimen Adequacy Satisfactory for evaluation, endocervical/trans formation zone component present. 05/19/2020 3:44 PM WAGON WINDER [facility] Categorization Negative for intraepithelial lesion or malignancy. 05/19/2020 3:44 PM WAGON WINDER [facility] Interpretation CLINICAL ENGINEERING DIRECTOR Negative for intraepithelial lesion or malignancy. 05/19/2020 3:44 PM WAGON WINDER [facility] Other Predominance of Coccobacilli consistent with shift in vaginal nenita (vaginosis). Inflammation present. 05/19/2020 3:44 PM WAGON WINDER [facility] Pap Footnote The Pap Smear is a screening test. False positive and false negative results occur. Negative results do not preclude abnormalities, thus clinical correlation is required. This specimen was evaluated by the ThinPrep Imaging System along with an additional manual rescreening by a bus van driver and/or pathologist. 05/19/2020 3:44 PM WAGON WINDER [facility] Embedded Images 3:44 PM WAGON WINDER [facility] Pathology/Cytolo gy VAGINA AND CERVIX, CS / Unknown 05/15/2020 3:11 PM WAGON WINDER 05/18/2020 12:24 PM WAGON WINDER Garrick Farley MD LAB - PATHOLOGY/CYTO LOGY ORDERABLES [facility] [address] [facility] [place] [address], [facility] [phone] from Last 3 Months or Most Recently [...] 4:56 AM 10/02/2017 7:23 PM Care Teams Automobile Service Writer Relationship Specialty Start Date End Date Aurea Lott DO [address] [place] [address] PCP - General 10/14/21 Jim Moreland MD [address] [facility] [place] [id number] Resident - PCP Internal Medicine 10/14/21
[2024-06-12 19:58] VITALS: BP 132/89; PULSE 91; RESP 16; O2SAT 100
== END 2024-06-12 20:45 | disposition home or self-care (01) ==
PROVIDERS: Emergency Provider Emergency Medicine
DX: S30.0XXA Contusion of lower back and pelvis, initial encounter (principal); M32.9 Systemic lupus erythematosus, unspecified; D64.9 Anemia, unspecified; F41.9 Anxiety disorder, unspecified; F31.9 Bipolar disorder, unspecified; Z86.711 Personal history of pulmonary embolism; Z90.49 Acquired absence of other specified parts of digestive tract; Z79.899 Other long term (current) drug therapy; W10.9XXA Fall (on) (from) unspecified stairs and steps, initial encounter
CPT/HCPCS: 36415; 72193; 80053; 81001; 81025; 85025; 87077; 87086; 87186; 99284; A9270; Q9967

== ENCOUNTER 2024-08-20 07:44 | Emergency (ER) | payer OTHER, SELFPAY ==
--- NOTE | ~2024-08-20 | XR_ITS ---
XR chest 2V Ordering provider: Kiet Hagen MD History: 34 years Female with . right lower rib pain, hx of rib fracture, pain 1 day,no inju . Comparison: November 14, 2020 FINDINGS: MEDIASTINUM: The cardiac silhouette is not enlarged. LUNGS: No infiltrates, effusions or pneumothorax. OTHER: No free air under the diaphragm. IMPRESSION: No acute cardiopulmonary pathology. Reviewed, dictated and finalized at location A.
--- NOTE | ~2024-08-20 | CT_ITS ---
EXAMINATION: CTA chest PE abdomen pel DATE: 08/20/2024 10:29 INDICATION: Right lower chest pain. Elevated d-dimer. TECHNIQUE: Computed tomography (CT) pulmonary angiogram of the chest was performed with 100 mL Omnipa que-350 intravenous contrast. Additional 3D reconstructions utilizing coronal maximum intensity proje ction (MIP) were performed. CT of the abdomen and pelvis was performed with intravenous contrast util izing the same contrast bolus following a short delay. Automated exposure control and iterative recon struction technique were employed. The dose-length product was 643.83 mGy-cm. COMPARISON: CT abdomen and pelvis dated 03/19/2021 FINDINGS: Chest: No pulmonary embolism. Mild atelectasis at the bilateral lung bases. A couple unchanged 4 mm subpleur al nodules in both the left and right lower lobes which given interval stability are most certainly b enign sequela of old granulomatous disease requiring no further follow-up. No pneumonia, pulmonary ed rupali, pleural effusion or pneumothorax. Heart size is normal. No pericardial effusion. Atherosclerotic calcifications along the right coronary artery. Thoracic aorta is normal in caliber with no dissecti on. No pathologically enlarged thoracic lymphadenopathy. Bones are unremarkable. No evident rib fract ures. Abdomen/pelvis: Cholecystectomy clips the gallbladder fossa and dropped clip in the cul-de-sac.. Liver, bilateral adr enal glands are normal. Nonspecific splenomegaly measuring 14.6 cm maximal transaxial dimension. Ther e is subtle stranding in the fat along the tail of the normal-appearing pancreas which could be seen with a mild acute interstitial pancreatitis. There are multiple bilateral renal cysts. 2.5 cm. Bones are unremarkable with no wall thickening or obstruction. Normal appendix. T-shaped IUD in expected po sition within the anteverted uterus. Bilateral adnexa are unremarkable. Tampon within the vaginal vau lt. Minimal likely physiologic free fluid in the pelvis. No abscess or free intraperitoneal gas. No p athologically enlarged abdominal or pelvic lymphadenopathy. Bones island at the left sacral ala. IMPRESSION: 1. No pulmonary embolism or other acute cardiopulmonary disease. 2. Mild stranding near the tail of the pancreas which could be seen in the setting of acute interstit ial pancreatitis. Correlate with lipase levels. 3. Nonspecific mild splenomegaly. 4. IUD in expected position. Reviewed, dictated and finalized at location A. IMPRESSION: 1. No pulmonary embolism or other acute cardiopulmonary disease. 2. Mild stranding near the tail of the pancreas which could be seen in the sett ing of acute interstitial pancreatitis. Correlate with lipase levels. 3. Nonspecific mild splenomegaly. 4. IUD in expected position.
--- OUTSIDE RECORDS SUMMARY | 2024-08-20 07:47 | XMS_ITS | Clinical Summary ---
Author Organization [facility] Address [address] [place] [address] Care Team Providers Care Project Production Engineer Name Role Phone Aurea Lott DO Primary Care Provider [phone] Jim Moreland MD Unavailable [phone] Source Comments [facility],non-owned Affiliates and Associated Physician Practices is amultiple site organization consisting of ambulatory clinics and hospital sitesin [place], [place], [place] and [place]. This disclosure is being madepursuant to the Care Everywhere program and may not contain all information available regarding this patient. Last updated 17.[facility] Allergies Active Allergy Reactions Criticality Noted Date Comments Amoxicillin Urticaria Medium 04/01/2019 Sulfamethoxazole W-Trimethoprim REGIONAL RETAIL SALES MANAGER Dysfunction 08/09/2017 mentql confusion Iron Vomiting 10/20/2020 Vomits oral iron Lamotrigine Itching 04/21/2022 Penicillins Urticaria,Unknown Medium 09/25/2020 Metoclopramide REGIONAL RETAIL SALES MANAGER Dysfunction 08/09/2017 Paralysis Medications * This document contains information received from the source organization and may not represent a complete record from that organization. * Be aware that medications may not be up to date on this document. Alwaysverify current medications with the patient. hydroxychloroquine (Plaquenil) 200 MG tablet Take 1.5 (one and one-half) tablets by mouth once daily 45 tablet 5 022 Active famotidine (Pepcid) 20 MG tablet Take 1 (one) tablet by mouth every 12 hours 20 tablet 023 Active diphenhydrAMINE (Benadryl) 25 MG capsule Take 1 (one) capsule by mouth every 4 hours as needed for Itching 30 capsule 023 Active methocarbamol (Robaxin) 500 MG tablet Take 1 (one) tablet by mouth every 6 hours as needed for Muscle Spasms 16 tablet 023 Active Additional Information Patient not taking.Reported on 11/23/2022 topiramate (Topamax) 25 MG tabletIndications:In tractable migraine with status migrainosus, unspecified migraine type Take 1 (one) tablet by mouth 2 times daily 60 tablet 11 023 Active rizatriptan (Maxalt) 5 MG tabletIndications:In tractable migraine with status migrainosus, unspecified migraine type Take 1 tab by mouth once at first sign of migraine. May repeat one time after 2 hours if needed. 9 tablet 11 023 Active levothyroxine (Synthroid) 50 MCG tablet Take 1 (one) tablet by mouth once daily 90 tablet 4 023 Active azaTHIOprine (Imuran) 50 MG tabletIndications:[facility] lupus erythematosus (SLE) in adult (HCC),exterminator current use of immunosuppressive drug,Therapeutic drug monitoring Take 1 (one) tablet by mouth 2 times daily 60 tablet 023 Active gabapentin (Neurontin) 100 MG capsule Take 1 (one) capsule by mouth at bedtime 90 capsule 2 023 Active amphetamine-dextroam phetamine XR 24hr (Adderall XR) 30 MG capsuleIndications:A ttention Deficit Hyperactivity Disorder Take 1 (one) capsule by mouth once daily Reasons: Attention Deficit Hyperactivity Disorder 30 capsule 025 Active amphetamine-dextroam phetamine (Adderall) 10 MG tabletIndications:At tention Deficit Hyperactivity Disorder Take 1 (one) tablet by mouth once daily as needed Reasons: Attention Deficit Hyperactivity Disorder 30 tablet 025 Active [facility] (SEROquel) 50 MG tablet Take 1 (one) tablet by mouth at bedtime 90 tablet 1 025 Active amphetamine-dextroam phetamine XR 24hr (Adderall XR) 30 MG capsuleIndications:A ttention Deficit Hyperactivity Disorder Take 1 (one) capsule by mouth once daily for 30 days Reasons: Attention Deficit Hyperactivity Disorder 30 capsule 025 2024 amphetamine-dextroam phetamine (Adderall) 10 MG tabletIndications:At tention Deficit Hyperactivity Disorder Take 1 (one) tablet by mouth once daily as needed Reasons: Attention Deficit Hyperactivity Disorder 30 tablet 025 2024 Active Problems Problem Noted Date Diagnosed Date PTSD (post-traumatic stress disorder) 08/29/2023 Hypothyroidism, acquired 10/13/2022 Antiphospholipid syndrome 05/11/2022 Bipolar 2 disorder 11/10/2021 Panic attack 11/10/2021 Normocytic anemia 11/10/2021 Other chronic pain 11/10/2021 Systemic lupus erythematosus with lung involvement, unspecified SLE type 09/16/2021 Nausea and vomiting 11/20/2020 Iron deficiency anemia during 10/21/19 Overview (11/07/2020): Venofer infusions planned Warm reactive antibody 09/25/2020 Overview (09/25/2020): Positive Ab screen for warm autoantibodies (WAA) - States that she has had a hx of blood transfusion w/ surgery - If WAAs are detected in a patient, the patient should be evaluated for RBC hemolysis. If there is hemolysis, the patient should be referred to a cmm programmer for further care. If there is no [...] Related to SLE, stable - Followed by puppet engineer, next visit 12/02/20 PFTs 08/28 Interpretation: The [...] 2012: related to ICU stay Anxiety 07/31/2017 [facility] current use of immunosuppressive drug 07/31/2017 SLE (systemic lupus erythematosus) 12/06/2012 Overview (09/25/2020): Diagnosed in 2007 (Positive SSA Ab. Dx based on cerebritis, pancreatitis, restrictive lung disease, with +JEAN-PAUL, dsDNA, Sm, VARIETY SAW OPERATOR chromatin). Sees Rheumatology. Complicated by restrictive [...] Date Resolved Date Recurrent major depressive d belen, in remission 09/05/2017 08/29/2023 Overview (09/25/2020): Mood stable On zoloft 100mg daily Referral to behavioral health sent, pt has not yet established care Encounters * This document contains information received from the source organization and may not represent a complete record from that organization. Date Type Department Care Team Description 07/17/2024 Telephone [facility] - Centralized Scheduling [address] [place] [address] Aurea Lott DO Reschedule Appointment 06/11/2024 Travel from Last 3 Months Immunizations Immunization Administration Dates Next Due INFLUENZA VACCINE, TRIV. (AF LURIA, FLUZONE TRIVALENT; 6MO+) (IIV3) 01/15/2013 [employer] primary monoval ent 12+ yr 0.3mL Purple [...] have received? 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 Not on file Not on file Not on file Last Filed Vital Signs Vital Sign Reading [...] 01/01/2024 3:28 PM CDT Plan of Treatment Health Maintenance Due Date Last Done Comments HEPATITIS B VACCINE (1 of 3 - 19+ 3-dose series) 2011 ZOSTER VACCINE (1 of 2) 2011 HPV VACCINE (2 - 3-dose series) 02/14/2018 01/17/2018 COVID-19 VACCINE (3 - Pfizer risk series) 10/07/2020 09/09/2020, 08/19/2020 PAP SMEAR 05/15/2023 05/15/2020, 06/06/2017 INFLUENZA VACCINE (Season Ended) 2024 04/13/2021, 01/16/2021, 12/02/2017, Additional history exists DTAP/TDAP/TD VACCINES (4 - Td or Tdap) 10/20/2030 10/20/2020, 08/23/2017, 08/26/1993 HIB VACCINE Completed 08/26/1993 HEPATITIS C SCREENING Completed 10/09/2020 , 05/29/2017, 12/07/2012 HIV SCREENING Completed 10/09/2020, 08/2020, 07/12/2017, Additional history exists PNEUMOCOCCAL VACCINE Completed 11/10/2021, 12/24/19 13 MENINGOCOCCAL (Group B) VACCINE SHARED DECISION-MAKING Aged Out No longer eligible based on patient's age to complete this topic MENINGOCOCCAL GROUPS A/C/Y/W VACCINE Aged Out No longer eligible based on patient's age to complete this topic Procedures Procedure Name Priority Date/Time Associated Diagnosis Comments HEPATITIS C AB W/RFLX TO HCV RNA QN PCR Routine 10/09/2020 Supervision of high risk in second trimester HIV-1 HIV-2 ANTIBODY + HIV P24 AG PANEL Routine 10/09/2020 Supervision of high risk in second trimester PAP IMAGE-GUIDED RFLX HPV+CT/NG+TRICH Routine 05/15/2020 3:11 PM MATH INTERVENTIONIST Screening for cervical cancer Screen for STD [...] a test for HCV RNA (test code 90395) is suggested. For additional information please refer to http://[employer].Last.fm/faq/YJW38y2 (This link is being provided for informational/ educational purposes only.) REPORT COMMENT: FASTING:NO Test Performed at: [facility] [address] [address] Authernative [facility] [id number] ANDRE ARAUJO DO,MPH Blood BLOOD SPECIMEN / Unknown 10/09/2020 10/09/2020 2:07 PM CDT Isa Rutledge MD LAB - CHEMISTRY ORDERABLES Final Result Performing Organization Address City/State/[facility] Co ca Phone Number [facility] [address] [place] [address] * HIV-1 HIV-2 ANTIBODY + HIV P24 AG PANEL (10/09/2020) Pathologist [facility] HIV Screen 4th Generation w Reflex NON-REACT [...] purpose. For additional information please refer to http://[employer].Last.fm/faq/KGL279 (This link is being provided for informational/ educational purposes only.) The performance of this assay has not been clinically validated in patients less than 2 years old. Test Performed at: [facility] [address] [address] ANDRE ARAUJO DO,MPH Blood BLOOD SPECIMEN / Unknown 10/09/2020 10/09/2020 2:07 PM CDT Isa Rutledge MD LAB - CHEMISTRY ORDERABLES Final Result [facility] [address] [place] [address] * PAP IMAGE-GUIDED RFLX HPV+CT/NG+TRICH (05/15/2020 3:11 PM MATH INTERVENTIONIST) Case Report Gynecologic Cytology Report Case: [id number] Authorizing Provider: Garrick Farley MD Collected: 05/15/2020 03:11 PM Ordering Location: [facility] Obstetrics Received: 05/18/2020 12:24 PM Gynecology and Women's Health First Screen: Guru Ellis Specimen: THINPREP - IMAGE GUIDED, Cervicovaginal 05/19/2020 3:44 PM MATH INTERVENTIONIST [facility] LMP preg 05/19/2020 3:44 PM MATH INTERVENTIONIST [facility] Menstrual Status 05/19/19 21 3:44 PM MATH INTERVENTIONIST [facility] Comment:7w6d Specimen Adequacy Satisfactory for evaluation, endocervical/trans formation zone component present. 05/19/2020 3:44 PM MATH INTERVENTIONIST [facility] Categorization Negative for intraepithelial lesion or malignancy. 05/19/2020 3:44 PM MATH INTERVENTIONIST [facility] Interpretation SMOKE EATER Negative for intraepithelial lesion or malignancy. 05/19/2020 3:44 PM MATH INTERVENTIONIST [facility] Other Predominance of Coccobacilli consistent with shift in vaginal nenita (vaginosis). Inflammation present. 05/19/2020 3:44 PM MATH INTERVENTIONIST [facility] Pap Footnote The Pap Smear is a screening test. False positive and false negative results occur. Negative results do not preclude abnormalities, thus clinical correlation is required. This specimen was evaluated by the ThinPrep Imaging System along with an additional manual rescreening by a personal development coach and/or pathologist. 05/19/2020 3:44 PM MATH INTERVENTIONIST [facility] Embedded Images 3:44 PM MATH INTERVENTIONIST [facility] Pathology/Cytolo gy VAGINA AND CERVIX, CS / Unknown 05/15/2020 3:11 PM MATH INTERVENTIONIST 05/18/2020 12:24 PM MATH INTERVENTIONIST Garrick Farley MD LAB - PATHOLOGY/CYTOLOGY ORDERAkua JOY Final Result [facility] [address] [place] [address], [facility] [phone] from Last 3 Months or Most Recently Relevant to Health Maintenance Insurance Advance Directives * Full Code (Latest Code [...] 4:56 AM 10/02/2017 7:23 PM Care Teams Project Production Engineer Relationship Specialty Start Date End Date Aurea Lott DO [address] [facility] [address] OF [facility] [place] [address] PCP - General 10/14/21 Jim Moreland MD [address] [facility] [place] [address] Resident - PCP Internal Medicine 10/14/21
--- OUTSIDE RECORDS SUMMARY | 2024-08-20 07:47 | XMS_ITS | Data Portability ---
Author Organization [facility], VM_CIN_GAH [facility] Address [address] [place] [address] Assessment No assessment recorded. Plan of Treatment [...] Address Organization Details Recorded Time Depressive disorder 42530641 [facility]03 Anxiety 21652721 Active 2021 [facility] 14:53:11 Attention deficit hyperactivity disorder 482853212 Active 2021 Susie Marinekaitlyn [facility]St[facility] 14:53:18 Lupus erythematosus 619541995 Active 2021 Susie Marinekaitlyn [facility] 14:53:29 Insomnia 366518992 Active 2021 [facility] 14:53:40 Problem Notes None recorded. Procedures Surgical History Date Name Laterality Status Provider Name and Address Organization Details Recorded Time 2 J-Tcylcwc-NC reporting statement for [facility] completed Susiekerri Hawthornekaitlyn [facility] 03/21/2022 09:11:03 2 HOLD CODE: TELE completed Susiekerri Segovia [facility] 03/21/2022 09:11:03 1 Date of Last Pap Smear completed Susie Segovia [facility] 03/21/2022 14:54:07 section completed [facility] 03/21/2022 14:55:55 Gallbladder Surgery completed [facility] 03/21/2022 14:56:08 Imaging Results None recorded. Procedure Notes None recorded. Medical Equipment None Reported. Allergies Allergen ID Allergen Name Allergen Category Reaction Reaction Severity Criticality Documentation Date Start Date Code Code System Note Provider Name and Address Organization Details Recorded Time 383738 amoxicill in medicatio n itching rash Not available Not available Not available 03/21/2022 723 [facility]Norm [facility] 2 14:50:31 702344 Product containin g penicilli n (product) medicatio n itching rash Not available Not available Not available 03/21/2022 38023 8001 SNOMED [facility] 14:50:31 Medications Name Sig Start Date [...] Updated DateTime 03/21/2022 154.94 cm 24.6 kg/m2 00080.01 g 86 /min Susie Segovia [facility]/[place] 03/21/2022 14:50:08 Social History Question Answer Notes LastModified by Organizat ion Details LastModified Time Tobacco Smoking Status Never Smoker Susie Segovia maikel [facility]/[place] 03/21/2022 14:50:33 Do You Have An Advance Directive? No Information not available 03/21/2022 What Type Of Diet Are You Following? REGULAR Information not available 03/21/2022 What Is The Highest Grade Or Level Of School You Have Completed Or The Highest Degree You Have Received? [id number] Information not available 03/21/2022 How Many Days [...] Do You Have A Medical Power Of Divemaster? Yes Information not available 03/21/2022 How Many [...] No Information not available 03/21/2022 Do You Use Sunscreen Routinely? No Information not available 03/21/2022 How Many Days In The Past Year Have You Consumed 4 Or More Drinks? 7 Information no t available 03/21/2022 Sex: Unknown Functional Status Question Answer Note LastModified by Organizat ion Details LastModified Time Do you use any illicit or recreational drugs? Yes Information not available 03/21/2022 What is your level of alcohol consumption? Occasional Information not available 03/21/2022 Are you currently employed? No Information not available 03/21/2022 Mental Status Question Answer Note LastModified by Organization D etails LastModified Time Do you feel stressed (tense, restless, nervous, or anxious, or unable to sleep at night)? [id number] Information not available 03/21/2022 Family History Relationship Description Onset Age of [...] available 03/10 14:50:32 Medical History Condition Response Anxiety Y Blood Clot (DVT/PE) Y Depression Y Anemia Y Kidney Disease/Disorder Y Muscle, Joint, or Bone Problems Y Vision or Eye Problems Y Autoimmune Disorders Y Seizures/Epilepsy Y Bipolar Disorder Y Gynecological History Statement/Question Response Abnormal Pap [...] SNOMED-CT Code Diagnosis ICD10 Code Diagnosis Note [id number] JUSTIN [facility] [facility] [address] [place] [address] 03/21/2022 14:47:21 03/21/2022 16:00:52 Depression screening positive 1776030772 37401 R45.89 Z13.31 Depression screening positive. No suicidal [...] therapist. Body mass index 20-24 - normal 434256995 Z68.24 Patient ne w to provider [id number] 22013 Z76.89 Health Concerns Section Related Observation LastModified by Organization Detai ls LastModified Time None Recorded Concern Status LastModified by Organization Details LastModified Time None Recorded Advance Directives Directive N: Payers Insurance Date Sequence Insurance Name Policy Number Policy Barfield Covered Member ID Barfield Member ID Guarantor Name 07/15/2022 1 *SELF PAY* Ve jeff Ivette 07/15/2022 1 [facility] (MEDICARE REPLACEMENT/ ADVANTAGE - HMO) Thalia Ivette [id number] Thalia Ivette Notes Date Note Type Note Provider Name [...] televisit. The patient made the appointment on zoGoodie Goodie Appoc and thought I was a behavioral therapist. She has an established PCP and psychiatrist down in [facility] that she follows regularly. She wanted to be seen for worsening depression. She has an appointment with her psychiatrist in a few weeks but they are trying to get her in sooner. She denies SI/HI at this time but did have thoughts without a plan 1 week ago. Patient states she is safe currently and support around her. ADIEL Hardin - [facility]/KERRI/ADIEL 03/22/2022 12:45:51 OBGyn Episode No OBEpisode recorded.
--- OUTSIDE RECORDS SUMMARY | 2024-08-20 07:47 | XMS_ITS | Encounter Summary ---
Author Organization [facility] Health Address [address] [place] [address] Care Team Providers Care Carbon Paper Interleafer Name Role Phone Estephania Moise APRN-MUSHROOM SORTER GRADER Primary Care Provider Aurea Lott DO Primary Care Provider [phone] Jim Moreland MD Unavailable [phone] Reason for Visit * Reason Onset Date Comments Appointment 03/19/2018 Encounter Details Date Type Department Care Team (Late st Contact Info) Description 03/19/2018 Telephone [facility] [address] [id number] Estephania Moise TUNNEL HEADING INSPECTOR-MUSHROOM SORTER GRADER [address] [facility] 2L DIV OF [facility] INTERNAL MEDICINE [place], [place] [id number] Appointment Social History Tobacco Use Types Packs/Day Years Used Date Smoking Tobacco: Never Smokeless Tobacco: Never Alcohol Use Standard Drinks/Week Comments No 0 (1 standard drink = 0.6 oz pur e alcohol) Comments No Sex and Gender Information Value Date Recorded Sex Assigned at Female 07/13/2021 8:56 AM CDT Legal Sex Female 5:42 AM COLLECTION CLERK Gender Identity Female 07/13/2021 8:56 AM CDT Sexual Orientation Bisexual 07/13/2021 8: 56 AM CDT 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 Answer Date of Assessment Author No 09/27/2017 12:24 PM CDT Hortencia Marcum RN * Is person blind or have serious difficulty seeing? Answer Date of Assessment Author No 09/27/2017 12:24 PM CDT Hortencia Marcum RN * Does person have serious difficulty walking/climbing stairs? Answer Date of Assessment Author No 09/27/2017 12:24 PM LIGIAT Hortencia Marcum RN * Does person have difficulty dressing/bathing? Answer Date of Assessment Author No 09/27/2017 12:24 PM CDT Hortencia Marcum RN * Does person have difficulty doing errands alone? Answer Date of Assessment Author No 09/27/2017 12:24 PM Hortencia Ortiz RN documented as of this encounter Mental Status * Does person have difficulty concentrating/remembering/making decisions? Answer Entry Date Author No 09/27/2017 12:24 PM Hortencia Ortiz RN documented in this encounter Miscellaneous Notes * Telephone Encounter - Zohreh Christensen - 03/21/2018 12:30 PM CST 3rd Attempt Called patient and left a message t contact the scheduling department [phone] ECTION CLERK * Telephone Encounter - Zohreh Christensen - 03/20/2018 10:37 AM CST 2nd Attempt Called the patient and left a message to contact the scheduling department at [phone] ECTION CLERK * Telephone Encounter - Zohreh Christensen - 03/19/2018 10:50 AM CST 1st attempt Called pt left message to contact scheduling department at [phone] ECTION CLERK documented in this encounter Plan of Treatment Not on file documented as of this encounter Visit Diagnoses Not on filedocumented in this encounter Care Teams Carbon Paper Interleafer Relationship Specialty Start Date End Date Estephania Moise, TUNNEL HEADING INSPECTOR-MUSHROOM SORTER GRADER [address] [place] [address] PCP - General 08/15/17 10/13/21 Aurea Lott DO [address] [place] [address] PCP - General 10/14/21 Jim Moreland MD [address] [facility] [place] [place] [address] Resident - PCP Internal Medicine 10/14/21 documented as of this encounter
--- OUTSIDE RECORDS SUMMARY | 2024-08-20 07:47 | XMS_ITS | Encounter Summary ---
Author Organization [facility] Address [address] [place] [address] Care Team Providers Care Java Software Developer Name Role Phone Estephania Moise VIDEO COORDINATOR-SUBMARINE WORKER Primary Care Provider Aurea Lott DO Primary Care Provider iJm Moreland MD Unavailable [phone] Reason for Visit * Reason Onset Date Comments POST COMPLICATIONS 10/09/2017 post p artum depression symptoms Encounter Details Date Type Department Care Team (Late st Contact Info) Description 10/09/2017 Nurse Triage [facility] Internal Medicine [address] [facility] [address] [place], [place] [phone] Estephania Moise, VIDEO COORDINATOR-SUBMARINE WORKER [address] [facility] [address] [facility] [place] [address] POST COMPLICATIONS (post depression symptoms ) Social History Tobacco Use Types Packs/Day Years Used Date Smoking Tobacco: Never Smokeless Tobacco: Never Alcohol Use Standard Drinks/Week Comments No 0 (1 standard drink = 0.6 oz pur e alcohol) Comments No Sex and Gender Information Value Date Recorded Sex Assigned at Female 07/13/2021 8:56 AM CDT Legal Sex Female 5:42 AM DIRECTOR OF ADMISSIONS Gender Identity Female 07/13/2021 8:56 AM CDT Sexual Orientation Bisexual 07/13/2021 8: 56 AM CDT 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 Answer Date of Assessment Author No 09/27/2017 12:24 PM LIGIAT Hortencia Marcum RN * Is person blind [...] verbalized understanding. Scheduled 10-10-17 @ 2:00 with [employer] Scheduled 10-10-17 @ 9:20am [facility] Reason for [...] Patient reports September 29 Protocols used: - [id number]-IE Disposition provided to be seen in acute care clinic within 3 days per protocol. Patient warm transfered to [facility] scheduling team for assistance with scheduling an appointment..If anything new develops,if anything gets worse or if you become increasingly concerned for any reason, please seek out immediate medical Attention. documented in this encounter Plan of Treatment Not on file documented as of this encounter Visit Diagnoses Not on filedocumented in this encounter Care Teams Java Software Developer Relationship Specialty Start Date End Date Estephania Moise, VIDEO COORDINATOR-SUBMARINE WORKER [address] [place] [address] PCP - General 08/15/17 10/13/21 Aurea Lott DO [address] OF [facility] [place] [address] PCP - General 10/14/21 Jim Moreland MD [address] [facility] [place] [phone] Resident - PCP Internal Medicine 10/14/21 documented as of this encounter
--- OUTSIDE RECORDS SUMMARY | 2024-08-20 07:47 | XMS_ITS | Clinical Summary ---
Author Organization [facility] Address [address] [place] [address] Care Team Providers Care Transfer Specialist Name Role Phone None, Provider MD Primary [...] Sex Assigned at Female 05/02/2023 2:01 PM MULTIPLE KNIFE EDGE TRIMMER OPERATOR Legal Sex Female 9:31 AM CDT Gender Identity Female 05/02/2023 2:01 PM MULTIPLE KNIFE EDGE TRIMMER OPERATOR Sexual Orientation Bisexual 05/02/2023 2: 01 PM MULTIPLE KNIFE EDGE TRIMMER OPERATOR Last Filed Vital Signs Vital Sign Reading Time Taken Comments Blood Pressure 129/83 05/02/2023 2:02 PM MULTIPLE KNIFE EDGE TRIMMER OPERATOR Pulse 78 05/02/2023 2:02 PM MULTIPLE KNIFE EDGE TRIMMER OPERATOR Temperature 36.4 C (97.6 F) 05/02/2023 10:24 AM MULTIPLE KNIFE EDGE TRIMMER OPERATOR Respiratory Rate 18 05/02/2023 2:02 PM MULTIPLE KNIFE EDGE TRIMMER OPERATOR Oxygen Saturation 100% 05/02/2023 2:02 PM MULTIPLE KNIFE EDGE TRIMMER OPERATOR Inhaled Oxygen Concentration - - Weight 68 kg (150 lb) 05/02/2023 10:24 AM MULTIPLE KNIFE EDGE TRIMMER OPERATOR Height 154.9 cm (5' 1 ) 05/02/2023 10:24 AM MULTIPLE KNIFE EDGE TRIMMER OPERATOR Body Mass Index 28.34 05/02/2023 10:24 AM MULTIPLE KNIFE EDGE TRIMMER OPERATOR Plan of Treatment Health Maintenance Due Date Last Done Comments Cervical Cancer Screening Pa p Smear (Age 30 to 64) Every 3 Years 1992 Annual Physical 1995 Hepatitis C 2010 Hepatitis B Vaccines (1 of 3 - 19+ 3-dose series) 2011 HPV Vaccines (2 - 3-dose series) 02/14/2018 01/17/2018 Cervical Cancer Screening Pa p with HPV Testing (Age 30 to 64) Every 5 Years 2022 Cervical Cancer Screening wi th HPV 2022 COVID-19 Vaccine (3 - 2023-2 5 season) 2023 09/09/2020, 08/19/2020 DTaP, Tdap and Td Vaccines ( 3 - Td or Tdap) 10/20/2030 10/20/2020, 08/23/2017, 08/26/1993 Pneumococcal Vaccine: Pediatrics (0 to 5 Years) and At-Risk Patients (6 to 49 Years) Aged Out 11/10/2021, 12/23/2012 No longer eligible based on patient's age to complete this topic Meningococcal B Vaccine Aged Out No l onger eligible based on patient's age to complete this topic Meningococcal Vaccine Aged Out No sloan xena eligible based on patient's age to complete this topic RSV Immunizations Under 20 Months Aged Out No longer eligible b ased on patient's age to complete this topic [place] [address] [place] [employer] Care Teams Transfer Specialist Relationship Specialty Start Date End Date None, Provider, PCP - General 03/31/21
--- OUTSIDE RECORDS SUMMARY | 2024-08-20 07:47 | XMS_ITS | Encounter Summary ---
Author Organization [facility] Health Address [address] [place] [address] Care Team Providers Care Yarder Puncher Name Role Phone Estephania Moise APRN-PETROLEUM ANALYST Primary Care Provider Aurea Lott DO Primary Care Provider [phone] Jim Moreland MD Unavailable [phone] Reason for Visit * Reason Onset Date Comments Headache 08/06/2018 Encounter Details Date Type Department Care Team (Late st Contact Info) Description 08/06/2018 Telephone [facility] [address] [phone] Estephania Moise INTERMODAL DISPATCHER-PETROLEUM ANALYST [address] [facility] 2L DIV OF [facility] INTERNAL MEDICINE [place], [place] [phone] Headache Social History Tobacco Use Types Packs/Day Years Used Date Smoking Tobacco: Never Smokeless Tobacco: Never Alcohol Use Standard Drinks/Week Comments No 0 (1 standard drink = 0.6 oz pur e alcohol) Comments No Sex and Gender Information Value Date Recorded Sex Assigned at Female 07/13/2021 8:56 AM CDT Legal Sex Female 5:42 AM SUBMARINE CABLE EQUIPMENT TECHNICIAN Gender Identity Female 07/13/2021 8:56 AM CDT Sexual Orientation Bisexual 07/13/2021 8: 56 AM CDT 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 Answer Entry Date Author No 09/27/2017 12:24 PM CDT Hortencia Marcum RN documented in this encounter Miscellaneous Notes [...] and is requesting to be contacted at [phone] by the[facility] medical centervider to further discuss this matter Message routed to the provider for further review and assistance documented in this encounter Plan of Treatment Not on file documented as of this encounter Visit Diagnoses Not on filedocumented in this encounter Care Teams Yarder Puncher Relationship Specialty Start Date End Date Estephania Moise APRN-PETROLEUM ANALYST [address] [place] [address] PCP - General 08/15/17 10/13/21 Aurea Lott DO [address] OF [facility] [place] [address] PCP - General 10/14/21 Jim Moreland MD [address] [facility] [place] [address] Resident - PCP Internal Medicine 10/14/21 documented as of this encounter
--- OUTSIDE RECORDS SUMMARY | 2024-08-20 07:47 | XMS_ITS | Encounter Summary ---
Author Organization [facility] Health Address [address] [facility] [place] [address] Care Team Providers Care Charge Account Clerk Name Role Phone Estephania Moise APRN-MANAGER GLOBAL COMMUNICATIONS Primary Care Provider Aurea Lott DO Primary Care Provider [phone] Jim Moreland MD Unavailable [phone] Encounter Details Date Type Department Care Team (Late st Contact Info) Description 01/23/2018 Telephone [facility] [address] [phone] Estephania Moise APRN-MANAGER GLOBAL COMMUNICATIONS [address] OF [facility] INTERNAL MEDICINE [place], [place] [phone] Social History Tobacco Use Types Packs/Day Years Used Date Smoking Tobacco: Never Smokeless Tobacco: Never Alcohol Use Standard Drinks/Week Comments No 0 (1 standard drink = 0.6 oz pur e alcohol) Comments No Sex and Gender Information Value Date Recorded Sex Assigned at Female 07/13/2021 8:56 AM CDT Legal Sex Female 5:42 AM CROSS TIE MAKER Gender Identity Female 07/13/2021 8:56 AM CDT Sexual Orientation Bisexual 07/13/2021 8: 56 AM CDT 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 documented in this encounter Plan of Treatment Not on file documented as of this encounter Visit Diagnoses Not on filedocumented in this encounter Care Teams Charge Account Clerk Relationship Specialty Start Date End Date Estephania Moise, SOLE MOLDER-MANAGER GLOBAL COMMUNICATIONS [address] [place] [address] PCP - General 08/15/17 10/13/21 Aurea Lott DO [address] [facility] [address] DIV OF [facility] [place] [address] PCP - General 10/14/21 Jim Moreland MD [address] [place] [place] [address] Resident - [facility] Internal Medicine 10/14/21 documented as of this encounter
--- OUTSIDE RECORDS SUMMARY | 2024-08-20 07:47 | XMS_ITS | Encounter Summary ---
Author Organization [facility] Address [address] [facility] [place] [address] Care Team Providers Care Millwright Apprentice Name Role Phone Aurea Lott DO Primary Care Provider [phone] Jim Moreland MD Unavailable [phone] Reason for Visit * Reason Onset Date Comments Question 10/18/2021 Encounter Details Date Type Department Care Team (Late st Contact Info) Description 10/18/2021 Telephone [facility] [address] [place] [address] Kimberly Balbuena MD [address] [place] [address] Question Social History Tobacco Use [...] Date Recorded PHQ2 TOTAL SCORE 6 09/16/2021 Comments No Sex and Gender Information Value Date Recorded Sex Assigned at Female 07/13/2021 8:56 AM CDT Legal Sex Female 5:42 AM IMAGING TECH Gender Identity Female 07/13/2021 8:56 AM CDT Sexual Orientation Bisexual 07/13/2021 8: 56 AM CDT 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 Answer Date of Assessment Author No 12/12/2020 7:41 PM CDT Leslee Castro RN * Is person blind or have serious difficulty seeing? Answer Date of Assessment Author No 12/12/2020 7:41 PM CDT Leslee Castro RN * Does person have serious difficulty walking/climbing stairs? Answer Date of Assessment Author No 12/12/2020 7:41 PM LIGIAT Leslee Castro RN * Does person have difficulty dressing/bathing? Answer Date of Assessment Author No 12/12/2020 7:41 PM CDT Leslee Castro RN * Does person have difficulty doing errands alone? Answer Date of Assessment Author No 12/12/2020 7:41 PM CDT Leslee Castro RN documented as of this encounter Mental Status * Does person have difficulty concentrating/remembering/making decisions? Answer Entry Date Author No 12/12/2020 7:41 PM CDT Leslee Castro RN documented in this encounter Miscellaneous Notes * Telephone Encounter - Kimberly Balbuena MD - 10/19/2021 2:49 PM CDT See detailed [employer] message. * Telephone Encounter - Neha Yadav [...] to just check on things. Please contact # [phone] documented in this encounter Plan of Treatment Not on file documented as of this encounter Visit Diagnoses Not on filedocumented in this encounter Care Teams Millwright Apprentice Relationship Specialty Start Date End Date Aurea Lott DO [address] DIV OF [facility] [place] [address] PCP - General 10/14/21 Jim Moreland MD [address] [facility] [place] [address] Resident - PCP Internal Medicine 10/14/21 documented as of this encounter
--- OUTSIDE RECORDS SUMMARY | 2024-08-20 07:47 | XMS_ITS | Encounter Summary ---
Author Organization [facility] Address [address] [place] [address] Care Team Providers Care Freight Rate Specialist Name Role Phone Estephania Moise APRN-ANTHROPOLOGY AND ARCHEOLOGY INSTRUCTOR Primary Care Provider Aurea Lott DO Primary Care Provider [phone] Jim Moreland MD Unavailable [phone] Encounter Details Date Type Department Care Team (Late st Contact Info) Description 12/17/2019 Telephone [facility] [address] [place] [address] Akosua Worley MD No info available Social History Tobacco Use Types Packs/Day Years Used Date Smoking Tobacco: Never Smokeless Tobacco: Never Alcohol Use Standard Drinks/Week Comments No 0 (1 standard drink = 0.6 oz pur e alcohol) VERY RARELY Comments No Sex and Gender Information Value Date Recorded Sex Assigned at Female 07/13/2021 8:56 AM CDT Legal Sex Female 5:42 AM MAILROOM MANAGER Gender Identity Female 07/13/2021 8:56 AM CDT Sexual Orientation Bisexual 07/13/2021 8: 56 AM CDT 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 Varma. She has only seen him through residents in the [facility] office. She was originally scheduled with Dr. [...] on filedocumented in this encounter Care Teams Freight Rate Specialist Relationship Specialty Start Date End Date Estephania Moise, CONTRACT ADMINISTRATOR-ANTHROPOLOGY AND ARCHEOLOGY INSTRUCTOR [address] [place] [address] PCP - General 08/15/17 10/13/21 Aurea Lott DO [address] [place] [address] PCP - General 10/14/21 Jim Moreland MD [address] [place] [address] Resident - PCP Internal Medicine 10/14/21 documented as of this encounter
--- OUTSIDE RECORDS SUMMARY | 2024-08-20 07:47 | XMS_ITS | Encounter Summary ---
Author Organization [facility] Health Address [address] [facility] [place] [address] Care Team Providers Care Electroplater Helper Name Role Phone Aurea Lott DO Primary Care Provider [phone] Jim Moreland MD Unavailable [phone] Reason for Visit * Reason Onset Date Comments MEDICATION REFILL 12/20/2021 Encounter Details Date Type Department Care Team (Late st Contact Info) Description 12/20/2021 Refill [facility] [address] [facility], [place] [phone] Luanne Downs MD [facility] [place] [address] MEDICATION REFILL Social History Tobacco Use Types [...] Date Recorded PHQ2 TOTAL SCORE 2 12/01/2021 Comments No Sex and Gender Information Value Date Recorded Sex Assigned at Female 07/13/2021 8:56 AM CDT Legal Sex Female 5:42 AM COUPLER Gender Identity Female 07/13/2021 8:56 AM CDT Sexual Orientation Bisexual 07/13/2021 8: 56 AM CDT 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 Answer Date of Assessment Author No 12/12/2020 7:41 PM Leslee Hess RN * Is person blind or have serious difficulty seeing? Answer Date of Assessment Author No 12/12/2020 7:41 PM CDLeslee Maier RN * Does person have serious difficulty walking/climbing stairs? Answer Date of Assessment Author No 12/12/2020 7:41 PM Leslee Hess RN * Does person have difficulty dressing/bathing? Answer Date of Assessment Author No 12/12/2020 7:41 PM Leslee Hess RN * Does person have difficulty doing errands alone? Answer Date of Assessment Author No 12/12/2020 7:41 PM Leslee Hess RN documented as of this encounter Mental Status * Does person have difficulty concentrating/remembering/making decisions? Answer Entry Date Author No 12/12/2020 7:41 PM Leslee Hess RN documented in this encounter Miscellaneous Notes [...] Penicillins Urticaria and Unknown ??? Reglan [Metoclopramide] COLD MILL OPERATOR Dysfunction Paralysis ??? Bactrim [Sulfamethoxazole W-Trimethoprim] COLD MILL OPERATOR Dysfunction mentql confusion ??? Iron Vomiting Vomits [...] Penicillins Urticaria and Unknown ??? Reglan [Metoclopramide] COLD MILL OPERATOR Dysfunction Paralysis ??? Bactrim [Sulfamethoxazole W-Trimethoprim] COLD MILL OPERATOR Dysfunction mentql confusion ??? Iron Vomiting Vomits [...] Systemic lupus erythematosus (SLE) in adult (HCC) retirement current use of immunosuppressive drug Therapeutic drug monitoring Encounter for therapeutic drug monitoring documented in this encounter Care Teams Electroplater Helper Relationship Specialty Start Date End Date Aurea Lott DO [address] [place] [address] PCP - General 10/14/21 Jim Moreland MD [address] [facility] [place] [address] Resident - PCP Internal Medicine 10/14/21 documented as of this encounter
--- OUTSIDE RECORDS SUMMARY | 2024-08-20 07:47 | XMS_ITS | Encounter Summary ---
Author Organization [facility] Address [address] [facility] [place] [address] Care Team Providers Care Kiln Door Builder Name Role Phone Estephania Moise APRN-ONBOARDING SPECIALIST Primary Care Provider Aurea Lott DO Primary Care Provider [phone] Jim Moreland MD Unavailable [phone] Reason for Visit * Reason Onset Date Comments MEDICATION REFILL 02/26/2018 Encounter Details Date Type Department Care Team (Late st Contact Info) Description 02/26/2018 Refill [facility] [address] [place] [address] Jana Saenz, [address] [place] [phone] MEDICATION REFILL Social History Tobacco Use Types Packs/Day Years Used Date Smoking Tobacco: Never Smokeless Tobacco: Never Alcohol Use Standard Drinks/Week Comments No 0 (1 standard drink = 0.6 oz pur e alcohol) Comments No Sex and Gender Information Value Date Recorded Sex Assigned at Female 07/13/2021 8:56 AM CDT Legal Sex Female 5:42 AM SENIOR CARE PROVIDER Gender Identity Female 07/13/2021 8:56 AM CDT Sexual Orientation Bisexual 07/13/2021 8: 56 AM CDT 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 Jana Saenz DO Rheumatology Fellow 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
--- OUTSIDE RECORDS SUMMARY | 2024-08-20 07:47 | XMS_ITS | Encounter Summary ---
Author Organization [facility] Health Address [address] [facility] [place] [place] [address] Care Team Providers Care Dredge Master Name Role Phone Estephania Moise FRONT END ENGINEER-AUTOMATION MACHINE OPERATOR Primary Care Provider Aurea Lott DO Primary Care Provider Jim Moreland MD Unavailable [phone] Reason for Visit * Reason Onset Date Comments Headache 08/08/2018 Encounter Details Date Type Department Care Team (Late st Contact Info) Description 08/08/2018 Nurse Triage [facility] [address] [facility] [address] [place] [address] Estephania Moise FRONT END ENGINEER-AUTOMATION MACHINE OPERATOR [address] [facility] 2L DIV OF 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 NuLabel message I???m in a lot of pain [...] conference to schedulers. Upon conference, pt disconnected. Fire Protection Specialist verbalized will reach back out to pt to try and reach to schedule ACS visit. Reason for Disposition ??? [1] Weakness of the face, arm or leg on one side of the body AND [2] new onset Protocols used: [id number] Called pt back and unable to reach. Left VM to CB office to sched for ACS visit and left CB# [phone] and closing statement. Appt sched nicole/ Estephania Gutierrez 08/15/18 @ 9:50am documented in this encounter Plan of Treatment Not on file documented as of this encounter Visit Diagnoses Not on filedocumented in this encounter Care Teams Dredge Master Relationship Specialty Start Date End Date Estephania Moise, FRONT END ENGINEER-AUTOMATION MACHINE OPERATOR [address] [place] [address] PCP - General 08/15/17 10/13/21 Aurea Lott DO [address] OF [facility] [place] [phone] PCP - General 10/14/21 Jim Moreland MD [address] [facility] [place] [phone] Resident - PCP Internal Medicine 10/14/21 documented as of this encounter
[2024-08-20 07:52] VITALS: BP 138/100; PULSE 77; RESP 16; TEMP 36.8; O2SAT 100
[2024-08-20 07:55] VITALS: RESP 16
--- NOTE | 2024-08-20 08:03 | ED_ITS ---
HPI - General Adult General Chief complaint: Unspecified Stated complaint: right rib pain Time Seen by Provider: 08/20/24 07:59 Source: patient Mode of arrival: ambulatory Limitations: no limitations History of Present Illness HPI narrative: 34 years old white female came to the ED by private car complaining of right lower ribs pain started yesterday. Patient walk in elementary school with a lot of lifting and pushing. She denies any fever, chills, nausea, vomiting, shortness of breath. History of cholecystectomy, internal abdominal bleed required major surgery, Related Data Home Medications ?Medication ?Instructions ?Recorded ?Confirmed ?Last Taken ?Type dextroamphetamine-amphetamine ER 10 mg PO DAILY 12/22/21 07/15/24 Unknown History 30 mg 24hr capsule,extend release quetiapine 25 mg tablet 50 mg PO PRN PRN (Drug) Ingestion 05/12/22 07/15/24 Unknown History Allergies Allergy/AdvReac Type Severity Reaction Status Date / Time amoxicillin Allergy Severe Hives Verified 08/20/24 07:59 lamotrigine Allergy Severe Hives Verified 08/20/24 07:59 metoclopramide Allergy Severe Other Verified 08/20/24 07:59 sulfamethoxazole (From Allergy Severe Confusion Verified 08/20/24 07:59 Bactrim) trimethoprim (From Bactrim) Allergy Severe Confusion Verified 08/20/24 07:59 iron AdvReac Severe Vomiting Verified 08/20/24 07:59 Review of Systems 2 Review of Systems: All systems reviewed & are unremarkable except as noted in HPI and below PMFSH Past Medical History Medical History Bipolar 1 disorder, mixed, moderate Anxiety Depression Seizure Pancreatitis Pulmonary embolism Lupus Surgical History Surgical History Previous section History of cholecystectomy (Unknown) Family History Family History Grandparent DVT (deep venous thrombosis) Cancer Heart disease Thyroid disorder Father Diabetes mellitus Depression Cerebrovascular accident Social History Social History Smoking status: Never smoker Alcohol intake: never Substance use: never Substance use type: marijuana and methamphetamine Do You Feel Safe in your Home?: Yes Lack of Transportation: No Lack of Food: Never True Current Housing: I Have Housing Concerned About Future Housing: No Difficulty Paying Gas/Electric Bills: No Difficulty Paying for Meds: No Currently Unemployed: No Education: High School Diploma/GED Difficulty w/ Childcare or Family Care: No Gender identity (if verbalized by the patient): Female Sexual Orientation (if Verbalized by the Patient): Straight or Heterosexual Spiritual care concerns: No Exam 2 Narrative: General appearance: Well-developed, well-nourished Skin: Normal color Head: Normocephalic, nontraumatic Eyes: Clear conjunctiva ENT: Oropharynx normal, ears normal, nose normal Neck: Supple, nontender Chest and respiratory: Airway patent, no respiratory distress, no accessory muscle use, tenderness right lower ribs, no bruises, no rash no swelling Heart: Regular rate/rhythm Abdomen: Soft, tenderness right upper quadrant, no organomegaly, quiet bowel sounds Vascular: Normal peripheral pulses, normal capillary refill. Musculoskeletal: Normal range of motion, nontender back Neurologic: Alert and oriented ?3, ROLLER STRUCTURAL MILL is normal as tested, no gross motor deficit Course Vital Signs Vital signs: Vital Signs Temperature 36.8 C 08/20/24 07:52 Pulse Rate 77 08/20/24 07:52 Respiratory Rate 16 08/20/24 07:52 Blood Pressure 138/100 H 08/20/24 07:52 Pulse Oximetry 100 08/20/24 07:52 Oxygen Delivery Room Air 08/20/24 07:52 Temperature 36.8 C 08/20/24 07:52 Pulse Rate 77 08/20/24 07:52 Respiratory Rate 16 08/20/24 07:55 Blood Pressure 138/100 H 08/20/24 07:52 Pulse Oximetry 100 08/20/24 07:52 Oxygen Delivery Room Air 08/20/24 07:52 Medical Decision Making MDM Narrative Medical decision making narrative: Differential diagnosis include musculoskeletal pain, pneumonia, pneumothorax, pulmonary embolism, urinary tract infection Blood workup today includes CBC, CMP, lipase and D-dimer showed D-DIMER 0.78 Urinalysis showed EVIDENCE OF INFECTION CTA CHEST ABDOMEN AND PELVIS SHOWED NO SIGNIFICANT ABNORMALITY TO EXPLAIN PATIENT CONDITION DIAGNOSIS URINARY TRACT INFECTION, MUSCULOSKELETAL PAIN DISCHARGED ON MACROBID, NAPROXEN AND CYCLOBENZAPRINE THE PT WAS DISCHARGED TO HOME.THE PT,S CONDITION UPON DISCHARGE WAS FAIR,EDUCATION WAS PROVIDED TO THE PT IN REFERENCE TO THE FINAL IMPRESSION,DISCHARGE STUDY RESULTS,TREATMENT,PROGNOSIS AND NEED FOR FOLLOW UP . Vital Signs Vital Signs: Vital Signs Temperature 36.8 C 08/20/24 07:52 Pulse Rate 77 08/20/24 07:52 Respiratory Rate 16 08/20/24 07:52 Blood Pressure 138/100 H 08/20/24 07:52 Pulse Oximetry 100 08/20/24 07:52 Oxygen Delivery Room Air 08/20/24 07:52 Temperature 36.8 C 08/20/24 07:52 Pulse Rate 77 08/20/24 07:52 Respiratory Rate 16 08/20/24 07:55 Blood Pressure 138/100 H 08/20/24 07:52 Pulse Oximetry 100 08/20/24 07:52 Oxygen Delivery Room Air 08/20/24 07:52 Lab Data 08/20/24 08:20 08/20/24 08:20 Labs: Lab Results 08/20/24 08/20/24 08/20/24 Range/Units 08:20 08:21 08:26 WBC 3.9 L (4.5-10.0) K/mm3 RBC 4.13 L (4.2-5.4) M/mm3 Hgb 10.8 L (12.0-15.0) g/dL Hct 33.8 L (37.0-47.0) % MCV 81.8 (80-100) fl MCH 26.2 (26-34) pg MCHC 32.0 (32-36) g/dl RDW 14.8 H (11.5-14.5) % Plt Count 294 (150-375) k/mm3 MPV 9.9 (7.4-10.4) fl Immature Gran % (Auto) 0.5 (0-0.5) % Neut % (Auto) 56.8 (45.5-73.1) % Lymph % (Auto) 33.0 (18.3-44.2) % Steuben % (Auto) 6.6 (2.6-8.5) % Eos % (Auto) 2.8 (0-4.4) % Baso % (Auto) 0.3 (0.2-1.2) % Lymph # (Auto) 1.29 (0.9-3.2) K/mm3 Ste[place] # (Auto) 0.3 (0.1-0.6) K/mm3 Eos # (Auto) 0.1 (0-0.3) K/mm3 Baso # (Auto) 0.0 (0.0-0.1) K/mm3 Abs Immat Gran (auto) 0.02 (0.00-0.031) K/mm3 Absolute Neuts (auto) 2.2 (1.3-6.7) K/mm3 Absolute Nucleated RBC 0.000 (0.0-0.012) K/mm3 Nucleated RBC % 0.0 (0.0-0.2) % D-Dimer 0.78 H (<0.48) ug/mL Sodium 140 (137-145) mmol/L Potassium 3.6 (3.4-5.0) mmol/L Chloride 109 H (98-107) mmol/L Carbon Dioxide 24 (22-30) mmol/L Anion Gap 7 (4-12) mmol/L BUN 8 (7-17) mg/dL Creatinine 0.56 L (0.7-1.0) mg/dL Estim Creat Clear Calc 110 ml/min Estimated GFR > 60 (59 - ) Glucose 94 (65-110) mg/dL Calcium 9.1 (8.4-10.2) mg/dL Total Bilirubin 0.7 (0.2-1.3) mg/dL AST 51 H (14-36) U/L ALT 30 (6-35) U/L Alkaline Phosphatase 75 (38-126) U/L Total Protein 9.0 H (6.3-8.2) g/dL Albumin 4.5 (3.5-5.1) g/dL Lipase 77 (23-300) U/L Urine Color Yellow (Yellow) Urine Appearance Clear (Clear) Urine pH 6.0 (5.0-9.0) Ur Specific Velarde 1.020 (1.001-1.035) Urine Protein Trace (Negative) mg/dL Urine Glucose (UA) Negative (Negative) mg/dL Urine Ketones Negative (Negative) mg/dL Ur Blood (Man) 2+ H (Negative) Urine Nitrate Negative (Negative) Urine Bilirubin Negative (Negative) Urine Urobilinogen 1.0 (<2.0) mg/dL Leukocyte Esterase Rfl 1+ H (Negative) TIFFANI/UL Urine RBC 0-2 (0-2) /hpf Urine WBC 11-20 H (0-3) /hpf Ur Squamous Epith Cells Occasional (Few) /hpf Urine Bacteria 1+ H /hpf Urine Casts 0-2 POC Urine HCG, Qual (Negative) 08/20/24 Range/Units 08:30 WBC (4.5-10.0) K/mm3 RBC (4.2-5.4) M/mm3 Hgb (12.0-15.0) g/dL Hct (37.0-47.0) % MCV (80-100) fl MCH (26-34) pg MCHC (32-36) g/dl RDW (11.5-14.5) % Plt Count (150-375) k/mm3 MPV (7.4-10.4) fl Immature Gran % (Auto) (0-0.5) % Neut % (Auto) (45.5-73.1) % Lymph % (Auto) (18.3-44.2) % Steuben % (Auto) (2.6-8.5) % Eos % (Auto) (0-4.4) % Baso % (Auto) (0.2-1.2) % Lymph # (Auto) (0.9-3.2) K/mm3 Ste[place] # (Auto) (0.1-0.6) K/mm3 Eos # (Auto) (0-0.3) K/mm3 Baso # (Auto) (0.0-0.1) K/mm3 Abs Immat Gran (auto) (0.00-0.031) K/mm3 Absolute Neuts (auto) (1.3-6.7) K/mm3 Absolute Nucleated RBC (0.0-0.012) K/mm3 Nucleated RBC % (0.0-0.2) % D-Dimer (<0.48) ug/mL Sodium (137-145) mmol/L Potassium (3.4-5.0) mmol/L Chloride (98-107) mmol/L Carbon Dioxide (22-30) mmol/L Anion Gap (4-12) mmol/L BUN (7-17) mg/dL Creatinine (0.7-1.0) mg/dL Estim Creat Clear Calc ml/min Estimated GFR (59 - ) Glucose (65-110) mg/dL Calcium (8.4-10.2) mg/dL Total Bilirubin (0.2-1.3) mg/dL AST (14-36) U/L ALT (6-35) U/L Alkaline Phosphatase (38-126) U/L Total Protein (6.3-8.2) g/dL Albumin (3.5-5.1) g/dL Lipase (23-300) U/L Urine Color (Yellow) Urine Appearance (Clear) Urine pH (5.0-9.0) Ur Specific Velarde (1.001-1.035) Urine Protein (Negative) mg/dL Urine Glucose (UA) (Negative) mg/dL Urine Ketones (Negative) mg/dL Ur Blood (Man) (Negative) Urine Nitrate (Negative) Urine Bilirubin (Negative) Urine Urobilinogen (<2.0) mg/dL Leukocyte Esterase Rfl (Negative) TIFFANI/UL Urine RBC (0-2) /hpf Urine WBC (0-3) /hpf Ur Squamous Epith Cells (Few) /hpf Urine Bacteria /hpf Urine Casts POC Urine HCG, Qual Negative (Negative) Imaging Data Radiologist's impression: Impressions Chest X-Ray 08/20/24 08:35 IMPRESSION: No acute cardiopulmonary pathology. Chest/Abdomen/Pelvis CTA 08/20/24 10:32 IMPRESSION: 1. No pulmonary embolism or other acute cardiopulmonary disease. 2. Mild stranding near the tail of the pancreas which could be seen in the setting of acute interstitial pancreatitis. Correlate with lipase levels. 3. Nonspecific mild splenomegaly. 4. IUD in expected position. Critical Care Time Critical Care Time Critical Care Time: No Discharge Plan Discharge Clinical Impression: Urinary tract infection, Musculoskeletal disorder Patient Disposition: Home Condition: Stable Instructions: Urinary Tract Infection in Women (DC), Musculoskeletal Pain (ED) Patient Language: Vincentian Prescriptions: New nitrofurantoin monohyd/m-cryst [Macrobid] 100 mg capsule 100 mg PO Q12H 5 Days Qty: 10 0RF Rx Instructions: must administer with a meal/food naproxen [Naprosyn] 500 mg tablet 500 mg PO BID PRN (Reason: pain) Qty: 14 0RF cyclobenzaprine 10 mg tablet 10 mg PO TID PRN (Reason: muscle spasm) Qty: 20 0RF No Action quetiapine 25 mg tablet 50 mg PO PRN PRN (Reason: (Drug) Ingestion) dextroamphetamine-amphetamine 30 mg capsule,extended release 24hr 10 mg PO DAILY hydrocodone-acetaminophen 5-325 mg tablet 1 tablet PO Q6H PRN (Reason: pain) Qty: 25 0RF Follow-up/Referrals: UNKNOWN,DOCTOR [Primary Care Provider] - Stand Alone Forms: Work/School Release IP
--- OUTSIDE RECORDS SUMMARY | 2024-08-20 08:31 | XMS_ITS | Encounter Summary ---
Author Organization [facility] Health Address [address] [place] [address] Care Team Providers Care Service Crew Leader Name Role Phone Estephania Moise APRN-PREFLIGHT INSPECTOR Primary Care Provider Aurea Lott DO Primary Care Provider Jim Moreland MD Unavailable [phone] Encounter Details Date Type Department Care Team (Late st Contact Info) Description 01/23/2018 Telephone [facility] [address] [phone] Estephania Moise APRN-PREFLIGHT INSPECTOR [address] OF [facility] INTERNAL MEDICINE [place], [place] [id number] Social History Tobacco Use Types Packs/Day Years Used Date Smoking Tobacco: Never Smokeless Tobacco: Never Alcohol Use Standard Drinks/Week Comments No 0 (1 standard drink = 0.6 oz pur e alcohol) Comments No Sex and Gender Information Value Date Recorded Sex Assigned at Female 07/13/2021 8:56 AM CDT Legal Sex Female 5:42 AM MANAGER ACUTE Gender Identity Female 07/13/2021 8:56 AM CDT Sexual Orientation Bisexual 07/13/2021 8: 56 AM CDT 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 Not on file Not [...] on filedocumented in this encounter Care Teams Service Crew Leader Relationship Specialty Start Date End Date Estephania Moise, TOOL ROOM ATTENDANT-PREFLIGHT INSPECTOR [address] [place] [address] PCP - General 08/15/17 10/13/21 Aurea Lott DO [address] [facility] 2L DIV OF [facility] [place] [phone] PCP - General 10/14/21 Jim Moreland MD [address] [facility] [place] [place] [phone] Resident - [facility] Internal Medicine 10/14/21 documented as of this encounter
--- OUTSIDE RECORDS SUMMARY | 2024-08-20 08:31 | XMS_ITS | Clinical Summary ---
Author Organization [facility] Address [address] [place] [address] Care Team Providers Care Director Internal Communications Name Role Phone Aurea Lott DO Primary Care Provider [phone] Jim Moreland MD Unavailable [phone] Source Comments [facility],non-owned Affiliates and Associated Physician Practices is amultiple site organization consisting of ambulatory clinics and hospital sitesin [place], [place], [place] and [place]. This disclosure is being madepursuant to the Care Everywhere program and may not contain all information available regarding this patient. Last updated 17.[facility] Allergies Active Allergy Reactions Criticality Noted Date Comments Amoxicillin Urticaria Medium 04/01/2019 Sulfamethoxazole W-Trimethoprim ARTS ADMINISTRATOR OR MANAGER Dysfunction 08/09/2017 mentql confusion Iron Vomiting 10/20/2020 Vomits oral iron Lamotrigine Itching 04/21/2022 Penicillins Urticaria,Unknown Medium 09/25/2020 Metoclopramide ARTS ADMINISTRATOR OR MANAGER Dysfunction 08/09/2017 Paralysis Medications * This [...] 023 Active azaTHIOprine (Imuran) 50 MG tabletIndications:[facility] lupus erythematosus (SLE) in adult (HCC),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 If there is no [...] risk of heart block with +SSA; undergoing ID interval surveillance Q2 weeks from 16 to 28 weeks (AHA recommendations). Restrictive lung disease 08/09/2017 Overview (09/25/2020): Related to SLE, stable - Followed by health care law specialist, next visit 12/02/20 PFTs 08/28 Interpretation: The [...] 2012: related to ICU stay Anxiety 07/31/2017 nursing home current use of immunosuppressive drug 07/31/2017 SLE (systemic lupus erythematosus) 12/06/2012 Overview (09/25/2020): Diagnosed in 2007 (Positive SSA Ab. Dx based on cerebritis, pancreatitis, restrictive lung disease, with +JEAN-PAUL, dsDNA, Sm, FIRE HYDRANT OPERATOR chromatin). Sees Rheumatology. Complicated by restrictive [...] Telephone [facility] - Centralized Scheduling [address] [place] [address] Aurea Lott DO Reschedule Appointment 06/11/2024 Travel from Last 3 Months Immunizations Immunization Administration Dates Next Due INFLUENZA VACCINE, TRIV. (AF LURIA, FLUZONE TRIVALENT; 6MO+) (IIV3) 01/15/2013 [employer] 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 For additional information please refer to http://[employer]/faq/BIJ77f1 (This link is being provided for informational/ educational purposes only.) REPORT COMMENT: FASTING:NO Test Performed at: [facility] [address] [facility] [place] [address] ANDRE ARAUJO DO,MPH Blood BLOOD SPECIMEN / Unknown 10/09/2020 10/09/2020 2:07 PM CDT Isa Rutledge MD LAB - CHEMISTRY ORDERABLES Final Result Performing Organization Address City/State/[facility] Co tn Phone Number [facility] [address] [place] [address] * HIV-1 HIV-2 ANTIBODY + HIV P24 AG PANEL (10/09/2020) Pathologist [facility] HIV Screen 4th Generation w Reflex NON-REACT [...] purpose. For additional information please refer to http://[employer]/faq/LWN174 (This link is being provided for informational/ educational purposes only.) The performance of this assay has not been clinically validated in patients less than 2 years old. Test Performed at: [facility] [id number] [id number] ANDRE ARAUJO DO,MPH Blood BLOOD SPECIMEN / Unknown 10/09/2020 10/09/2020 2:07 PM CDT Isa Rutledge MD LAB - CHEMISTRY ORDERABLES Final Result [facility] [address] [place] [address] * PAP IMAGE-GUIDED RFLX HPV+CT/NG+TRICH (05/15/2020 3:11 PM INFORMATION RESOURCES DIRECTOR) Case Report Gynecologic Cytology Report Case: [id number] Authorizing Provider: Garrick Farley MD Collected: 05/15/2020 03:11 PM Ordering Location: [facility] Obstetrics Received: 05/18/2020 12:24 PM [facility] Screen: Guru Ellis Specimen: THINPREP - IMAGE GUIDED, Cervicovaginal 05/19/2020 3:44 PM INFORMATION RESOURCES DIRECTOR [facility] LMP preg 05/19/2020 3:44 PM INFORMATION RESOURCES DIRECTOR [facility] Menstrual Status 05/19/19 21 3:44 PM INFORMATION RESOURCES DIRECTOR [facility] Comment:7w6d Specimen Adequacy Satisfactory for evaluation, endocervical/trans formation zone component present. 05/19/2020 3:44 PM INFORMATION RESOURCES DIRECTOR [facility] Categorization Negative for intraepithelial lesion or malignancy. 05/19/2020 3:44 PM INFORMATION RESOURCES DIRECTOR [facility] Interpretation MIDDLEWARE SYSTEMS ARCHITECT Negative for intraepithelial lesion or malignancy. 05/19/2020 3:44 PM INFORMATION RESOURCES DIRECTOR [facility] Other Predominance of Coccobacilli consistent with shift in vaginal nenita (vaginosis). Inflammation present. 05/19/2020 3:44 PM INFORMATION RESOURCES DIRECTOR [facility] Pap Footnote The Pap Smear is a screening test. False positive and false negative results occur. Negative results do not preclude abnormalities, thus clinical correlation is required. This specimen was evaluated by the ThinPrep Imaging System along with an additional manual rescreening by a clerk travel reservations and/or pathologist. 05/19/2020 3:44 PM INFORMATION RESOURCES DIRECTOR [facility] Embedded Images 3:44 PM INFORMATION RESOURCES DIRECTOR [facility] Pathology/Cytolo gy VAGINA AND CERVIX, CS / Unknown 05/15/2020 3:11 PM INFORMATION RESOURCES DIRECTOR 05/18/2020 12:24 PM INFORMATION RESOURCES DIRECTOR Garrick Farley MD LAB - PATHOLOGY/CYTOLOGY ORDERAkua JOY Final Result [facility] [address] [place] [address], [facility] [phone] from Last 3 Months or Most Recently [...] 4:56 AM 10/02/2017 7:23 PM Care Teams Director Internal Communications Relationship Specialty Start Date End Date Aurea Lott DO [address] [facility] [address] DIV OF [facility] [place] [address] PCP - General 10/14/21 Jim Moreland MD [address] [facility] [place] [address] Resident - PCP Internal Medicine 10/14/21
--- OUTSIDE RECORDS SUMMARY | 2024-08-20 08:31 | XMS_ITS | Encounter Summary ---
Author Organization [facility] Address [address] [place] [address] Care Team Providers Care Sales Attendant Building Materials Name Role Phone Estephania Moise APRN-LEAD MINER Primary Care Provider Aurea Lott DO Primary Care Provider Jim Moreland MD Unavailable [phone] Reason for Visit * Reason Onset Date Comments Appointment 03/19/2018 Encounter Details Date Type Department Care Team (Late st Contact Info) Description 03/19/2018 Telephone [facility] Internal Medicine [address] [phone] Estephania Moise HAM PUMPER-LEAD MINER [address] [facility] [address] DIV OF [facility] INTERNAL MEDICINE [place], [place] [phone] Appointment Social History Tobacco Use Types Packs/Day Years Used Date Smoking Tobacco: Never Smokeless Tobacco: Never Alcohol Use Standard Drinks/Week Comments No 0 (1 standard drink = 0.6 oz pur e alcohol) Comments No Sex and Gender Information Value Date Recorded Sex Assigned at Female 07/13/2021 8:56 AM CDT Legal Sex Female 5:42 AM CERAMICS TEST ENGINEER Gender Identity Female 07/13/2021 8:56 AM CDT Sexual Orientation Bisexual 07/13/2021 8: 56 AM CDT 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 on file Not [...] a message t contact the scheduling department [phone] MICS TEST ENGINEER * Telephone Encounter - Zohreh Christensen - 03/20/2018 10:37 AM CST 2nd Attempt Called the patient and left a message to contact the scheduling department at [phone] MICS TEST ENGINEER * Telephone Encounter - Zohreh Christensen - 03/19/2018 10:50 AM CST 1st attempt Called pt left message to contact scheduling department at [phone] MICS TEST ENGINEER documented in this encounter Plan of Treatment Not on file documented as of this encounter Visit Diagnoses Not on filedocumented in this encounter Care Teams Sales Attendant Building Materials Relationship Specialty Start Date End Date Estephania Moise, HAM PUMPER-LEAD MINER [address] [place] [address] PCP - General 08/15/17 10/13/21 Aurea Lott DO [address] [place] [address] PCP - General 10/14/21 Jim Moreland MD [address] [facility] [place] [address] Resident - PCP Internal Medicine 10/14/21 documented as of this encounter
--- OUTSIDE RECORDS SUMMARY | 2024-08-20 08:31 | XMS_ITS | Encounter Summary ---
Author Organization [facility] Address [address] [place] [address] Care Team Providers Care Grinder Machine Setter Name Role Phone Estephania Moise APRN-TURN SUPERVISOR Primary Care Provider Aurea Lott DO Primary Care Provider [phone] Jim Moreland MD Unavailable [phone] Reason for Visit * Reason Onset Date Comments MEDICATION REFILL 02/26/2018 Encounter Details Date Type Department Care Team (Late st Contact Info) Description 02/26/2018 Refill [facility] Rheumatology [address] [place] [address] Jana Saenz, [address] [place] [address] MEDICATION REFILL Social History Tobacco Use Types Packs/Day Years Used Date Smoking Tobacco: Never Smokeless Tobacco: Never Alcohol Use Standard Drinks/Week Comments No 0 (1 standard drink = 0.6 oz pur e alcohol) Comments No Sex and Gender Information Value Date Recorded Sex Assigned at Female 07/13/2021 8:56 AM CDT Legal Sex Female 5:42 AM LABORER TIN CAN Gender Identity Female 07/13/2021 8:56 AM CDT Sexual Orientation Bisexual 07/13/2021 8: 56 AM CDT 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 Jana Saenz DO Rheumatology Fellow 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
--- OUTSIDE RECORDS SUMMARY | 2024-08-20 08:31 | XMS_ITS | Encounter Summary ---
Author Organization [facility] Address [address] [place] [address] Care Team Providers Care Ditch Worker Name Role Phone Estephania Moise APRN-PATIENT ACCOUNT SPECIALIST Primary Care Provider Aurea Lott DO Primary Care Provider [phone] Jim Moreland MD Unavailable [phone] Encounter Details Date Type Department Care Team (Late st Contact Info) Description 12/17/2019 Telephone [facility] [address] [place] [address] Akosua Worley MD No info available Social History Tobacco Use Types Packs/Day Years Used Date Smoking Tobacco: Never Smokeless Tobacco: Never Alcohol Use Standard Drinks/Week Comments No 0 (1 standard drink = 0.6 oz pur e alcohol) VERY RARELY Comments No Sex and Gender Information Value Date Recorded Sex Assigned at Female 07/13/2021 8:56 AM CDT Legal Sex Female 5:42 AM COMMUNITY DIRECTOR Gender Identity Female 07/13/2021 8:56 AM CDT Sexual Orientation Bisexual 07/13/2021 8: 56 AM CDT 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 She was originally scheduled with [...] on filedocumented in this encounter Care Teams Ditch Worker Relationship Specialty Start Date End Date Estephania Moise, ORDER ADMINISTRATOR-PATIENT ACCOUNT SPECIALIST [address] [place] [address] PCP - General 08/15/17 10/13/21 Aurea Lott DO [address] [place] [address] PCP - General 10/14/21 Jim Moreland MD [address] [facility] [place] [address] Resident - PCP Internal Medicine 10/14/21 documented as of this encounter
--- OUTSIDE RECORDS SUMMARY | 2024-08-20 08:31 | XMS_ITS | Encounter Summary ---
Author Organization [facility] Address [address] [address] Care Team Providers Care Motor Patrol Operator Name Role Phone Estephania Moise METAL MOVER-INTERVENTIONAL CARDIOLOGIST Primary Care Provider Aurea Lott DO Primary Care Provider Jim Morealnd MD Unavailable [phone] Reason for Visit * Reason Onset Date Comments POST COMPLICATIONS 10/09/2017 post p artum depression symptoms Encounter Details Date Type Department Care Team (Late st Contact Info) Description 10/09/2017 Nurse Triage [facility] Internal Medicine [address] [facility] [address] [place], [place] [phone] Estephania Moise, METAL MOVER-INTERVENTIONAL CARDIOLOGIST [address] [facility] [address] [facility] [place] [address] POST COMPLICATIONS (post depression symptoms ) Social History Tobacco Use Types Packs/Day Years Used Date Smoking Tobacco: Never Smokeless Tobacco: Never Alcohol Use Standard Drinks/Week Comments No 0 (1 standard drink = 0.6 oz pur e alcohol) Comments No Sex and Gender Information Value Date Recorded Sex Assigned at Female 07/13/2021 8:56 AM CDT Legal Sex Female 5:42 AM BUFFET SERVER Gender Identity Female 07/13/2021 8:56 AM CDT Sexual Orientation Bisexual 07/13/2021 8: 56 AM CDT 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 Scheduled 10-10-17 @ 2:00 with AVIATION ELECTRONIC WARFARE OPERATOR Scheduled 10-10-17 @ 9:20am ACS Reason for [...] Patient reports September 29 Protocols used: - [id number] Disposition provided to be seen in acute care clinic within 3 days per protocol. Patient warm transfered to [facility] scheduling team for assistance with scheduling an appointment..If anything new develops,if anything gets worse or if you become increasingly concerned for any reason, please seek out immediate medical Attention. documented in this encounter Plan of Treatment Not on file documented as of this encounter Visit Diagnoses Not on filedocumented in this encounter Care Teams Motor Patrol Operator Relationship Specialty Start Date End Date Estephania Moise, METAL MOVER-INTERVENTIONAL CARDIOLOGIST [address] [place] [address] PCP - General 08/15/17 10/13/21 Aurea Lott DO [address] [facility] [address] PCP - General 10/14/21 Jim Moreland MD [address] [facility] [place] [address] Resident - PCP Internal Medicine 10/14/21 documented as of this encounter
--- OUTSIDE RECORDS SUMMARY | 2024-08-20 08:31 | XMS_ITS | Encounter Summary ---
Author Organization [facility] Address [address] [facility] [place] [address] Care Team Providers Care Supervisor Ship Maintenance Services Name Role Phone Aurea Lott DO Primary Care Provider [phone] Jim Moreland MD Unavailable [phone] Reason for Visit * Reason Onset Date Comments Question 10/18/2021 Encounter Details Date Type Department Care Team (Late st Contact Info) Description 10/18/2021 Telephone [facility] [address] [place] [address] Kimberly Balbuena MD [address] [place] [address] Question Social History Tobacco Use [...] AM CDT Legal Sex Female 5:42 AM ENROLLMENT MANAGEMENT DIRECTOR Gender Identity Female 07/13/2021 8:56 AM [...] - 10/19/2021 2:49 PM CDT See detailed [employer] message. * Telephone Encounter - Neha Yadav [...] just check on things. Please contact # [phone] documented in this encounter Plan of Treatment Not on file documented as of this encounter Visit Diagnoses Not on filedocumented in this encounter Care Teams Supervisor Ship Maintenance Services Relationship Specialty Start Date End Date Aurea Lott DO [address] DIV OF [facility] [place] [address] PCP - General 10/14/21 Jim Moreland MD [address] [facility] [place] [address] Resident - PCP Internal Medicine 10/14/21 documented as of this encounter
--- OUTSIDE RECORDS SUMMARY | 2024-08-20 08:31 | XMS_ITS | Encounter Summary ---
Author Organization [facility] Health Address [address] [facility] [place] [address] Care Team Providers Care Professor Of Floriculture Name Role Phone Aurea Lott DO Primary Care Provider [phone] Jim Moreland MD Unavailable [phone] Reason for Visit * Reason Onset Date Comments MEDICATION REFILL 12/20/2021 Encounter Details Date Type Department Care Team (Late st Contact Info) Description 12/20/2021 Refill [facility] Rheumatology [address] [facility] [place] [phone] Luanne Downs MD [place] [address] MEDICATION REFILL Social History Tobacco [...] AM CDT Legal Sex Female 5:42 AM TOP INSTALLER Gender Identity Female 07/13/2021 8:56 AM CDT [...] Penicillins Urticaria and Unknown ??? Reglan [Metoclopramide] ESTIMATOR JEWELRY Dysfunction Paralysis ??? Bactrim [Sulfamethoxazole W-Trimethoprim] ESTIMATOR JEWELRY Dysfunction mentql confusion ??? Iron Vomiting Vomits [...] Penicillins Urticaria and Unknown ??? Reglan [Metoclopramide] ESTIMATOR JEWELRY Dysfunction Paralysis ??? Bactrim [Sulfamethoxazole W-Trimethoprim] ESTIMATOR JEWELRY Dysfunction mentql confusion ??? Iron Vomiting Vomits [...] Systemic lupus erythematosus (SLE) in adult (HCC) halfway current use of immunosuppressive drug Therapeutic drug monitoring Encounter for therapeutic drug monitoring documented in this encounter Care Teams Professor Of Floriculture Relationship Specialty Start Date End Date Aurea Lott DO [address] [place] [address] PCP - General 10/14/21 Jim Moreland MD [address] [facility] [place] [address] Resident - PCP Internal Medicine 10/14/21 documented as of this encounter
--- OUTSIDE RECORDS SUMMARY | 2024-08-20 08:31 | XMS_ITS | Encounter Summary ---
Author Organization [facility] Address [address] [facility] [place] [address] Care Team Providers Care Hide Inspector And Sorter Name Role Phone Estephania Moise APRN-MILITARY ANALYST Primary Care Provider Aurea Lott DO Primary Care Provider [phone] Jim Moreland MD Unavailable [phone] Reason for Visit * Reason Onset Date Comments Headache 08/06/2018 Encounter Details Date Type Department Care Team (Late st Contact Info) Description 08/06/2018 Telephone [facility] Internal Medicine [address] [phone] Estephania Moise PIT OPERATOR-MILITARY ANALYST [address] [facility] [address] DIV OF [facility] INTERNAL MEDICINE [place], [place] [phone] Headache Social History Tobacco Use Types Packs/Day Years Used Date Smoking Tobacco: Never Smokeless Tobacco: Never Alcohol Use Standard Drinks/Week Comments No 0 (1 standard drink = 0.6 oz pur e alcohol) Comments No Sex and Gender Information Value Date Recorded Sex Assigned at Female 07/13/2021 8:56 AM CDT Legal Sex Female 5:42 AM POPULATION GENETICIST Gender Identity Female 07/13/2021 8:56 AM CDT Sexual Orientation Bisexual 07/13/2021 8: 56 AM CDT 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 Answer Date of Assessment Author No 09/27/2017 12:24 PM CDT Hortencia aMrcum RN * Is person blind or have [...] and is requesting to be contacted at [phone] by [facility] to further discuss this matter Message routed to the provider for further review and assistance documented in this encounter Plan of Treatment Not on file documented as of this encounter Visit Diagnoses Not on filedocumented in this encounter Care Teams Hide Inspector And Sorter Relationship Specialty Start Date End Date Estephania Moise APRN-MILITARY ANALYST [address] [place] [address] PCP - General 08/15/17 10/13/21 Aurea Lott DO [address] OF [facility] [place] [address] PCP - General 10/14/21 Jim Moreland MD [address] [facility] [place] [address] Resident - PCP Internal Medicine 10/14/21 documented as of this encounter
--- OUTSIDE RECORDS SUMMARY | 2024-08-20 08:31 | XMS_ITS | Clinical Summary ---
Author Organization [facility] Address [address] [place] [address] Care Team Providers Care Physician Obstetrician Name Role Phone None, Provider MD Primary [...] Sex Assigned at Female 05/02/2023 2:01 PM UTILITY PLANT OPERATIVE Legal Sex Female 9:31 AM CDT Gender Identity Female 05/02/2023 2:01 PM UTILITY PLANT OPERATIVE Sexual Orientation Bisexual 05/02/2023 2: 01 PM UTILITY PLANT OPERATIVE Last Filed Vital Signs Vital Sign Reading Time Taken Comments Blood Pressure 129/83 05/02/2023 2:02 PM UTILITY PLANT OPERATIVE Pulse 78 05/02/2023 2:02 PM UTILITY PLANT OPERATIVE Temperature 36.4 C (97.6 F) 05/02/2023 10:24 AM UTILITY PLANT OPERATIVE Respiratory Rate 18 05/02/2023 2:02 PM UTILITY PLANT OPERATIVE Oxygen Saturation 100% 05/02/2023 2:02 PM UTILITY PLANT OPERATIVE Inhaled Oxygen Concentration - - Weight 68 kg (150 lb) 05/02/2023 10:24 AM UTILITY PLANT OPERATIVE Height 154.9 cm (5' 1 ) 05/02/2023 10:24 AM UTILITY PLANT OPERATIVE Body Mass Index 28.34 05/02/2023 10:24 AM UTILITY PLANT OPERATIVE Plan of Treatment Health Maintenance Due Date [...] patient's age to complete this topic Insurance JACOBYRICHMOND SEBASTOPOL [employer] Care Teams Physician Obstetrician Relationship Specialty Start Date End Date None, Provider, PCP - General 03/31/21
--- OUTSIDE RECORDS SUMMARY | 2024-08-20 08:31 | XMS_ITS | Encounter Summary ---
Author Organization [facility] Health Address [address] [place] [address] Care Team Providers Care Computational Scientist Name Role Phone Estephania Moise LOGISTICS MANAGER-EMULSIFICATION OPERATOR Primary Care Provider Aurea Lott DO Primary Care Provider Jim Moreland MD Unavailable [phone] Reason for Visit * Reason Onset Date Comments Headache 08/08/2018 Encounter Details Date Type Department Care Team (Late st Contact Info) Description 08/08/2018 Nurse Triage [facility] General Internal Medicine [address] [facility] [address] [place] [address] Estephania Moise LOGISTICS MANAGER-EMULSIFICATION OPERATOR [address] 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 [employer] message I???m in a lot of pain [...] conference to schedulers. Upon conference, pt disconnected. Information Receptionist verbalized will reach back out to pt to try and reach to schedule ACS visit. Reason for Disposition ??? [1] Weakness of the face, arm or leg on one side of the body AND [2] new onset Protocols used: [id number] Called pt back and unable to reach. Left VM to CB office to sched for ACS visit and left CB# [phone] and closing statement. Appt sched nicole/ Estephania Gutierrez 08/15/18 @ 9:50am documented in this encounter Plan of Treatment Not on file documented as of this encounter Visit Diagnoses Not on filedocumented in this encounter Care Teams Computational Scientist Relationship Specialty Start Date End Date Estephania Moise, LOGISTICS MANAGER-EMULSIFICATION OPERATOR [address] [place] [address] PCP - General 08/15/17 10/13/21 Aurea Lott DO [address] OF [facility] [place] [place] [phone] PCP - General 10/14/21 Jim Moreland MD [address] [facility] [place] [phone] Resident - PCP Internal Medicine 10/14/21 documented as of this encounter
[2024-08-20 08:37] LABS: Basophils Percent Auto 0.3 % (0.2-1.2); Eosinophils Absolute Auto 0.1 K/mm3 (0-0.3); Eosinophils Percent Auto 2.8 % (0-4.4); Hematocrit 33.8 % (37.0-47.0); Hemoglobin 10.8 g/dL (12.0-15.0); Immature Granulocyte Absolute 0.02 K/mm3 (0.00-0.031); Immature Granulocyte Percent A 0.5 % (0-0.5); Lymphocytes Absolute Auto 1.29 K/mm3 (0.9-3.2); Mean Corpuscular Hemoglobin 26.2 pg (26-34); Mean Corpuscular Volume 81.8 fl (80-100); Mean Platelet Volume 9.9 fl (7.4-10.4); Monocytes Absolute Auto 0.3 K/mm3 (0.1-0.6); Monocytes Percent Auto 6.6 % (2.6-8.5); Neutrophils Absolute Auto 2.2 K/mm3 (1.3-6.7); Neutrophils Percent Auto 56.8 % (45.5-73.1); Platelet Count Result 294 k/mm3 (150-375); Red Blood Count 4.13 M/mm3 (4.2-5.4); Red Cell Distribution Width 14.8 % (11.5-14.5); White Blood Count 3.9 K/mm3 (4.5-10.0)
[2024-08-20 08:44] LABS: Add Urine Microscopic? YES; Appearance Urine Clear (Clear); Bacteria Urine 1+ /hpf; Bilirubin Urine Negative (Negative); Blood Urine 2+ (Negative); Color Urine Yellow (Yellow); Glucose Urine UA Negative (Negative); Ketones Urine Negative (Negative); Leukocyte Esterase Ur 1+ LEU/UL (Negative); Nitrate Urine Negative (Negative); Non Pathogenic Casts 0-2; Protein Urine Trace mg/dL (Negative); RBC Urine 0-2 /hpf (0-2); Squamous Epithelial Cell Urine Occasional /hpf (Few)
[2024-08-20 08:46] LABS: Alanine Aminotransferase 30 U/L (6-35); Albumin Level 4.5 g/dL (3.5-5.1); Alkaline Phosphatase 75 U/L (38-126); Anion Gap 7 mmol/L (4-12); Aspartate Amino Transferase 51 U/L (14-36); Bilirubin,Total 0.7 mg/dL (0.2-1.3); Blood Urea Nitrogen 8 mg/dL (7-17); Calcium 9.1 mg/dL (8.4-10.2); Carbon Dioxide 24 mmol/L (22-30); Chloride 109 mmol/L (98-107); Estimated CRCL calculation 110 ml/min; Estimated Glomerular Filt Rate > 60; Glucose 94 mg/dL (65-110); Lipase 77 U/L (23-300); Potassium 3.6 mmol/L (3.4-5.0); Sodium 140 mmol/L (137-145)
[2024-08-20 09:01] LABS: D Dimer 0.78 ug/mL (<0.48)
[2024-08-20 09:32] LABS: BEDSIDEPREGUCG Negative (Negative)
[2024-08-20 11:00] VITALS: BP 126/80; PULSE 70; RESP 16; O2SAT 98
== END 2024-08-20 11:00 | disposition home or self-care (01) ==
PROVIDERS: Emergency Provider Emergency Medicine
DX: N39.0 Urinary tract infection, site not specified (principal); F41.9 Anxiety disorder, unspecified; F32.A Depression, unspecified; Z86.711 Personal history of pulmonary embolism; M32.9 Systemic lupus erythematosus, unspecified
CPT/HCPCS: 36415; 71046; 71275; 74177; 80053; 81001; 81025; 83690; 85025; 85380; 87086; 87186; 99284; Q9967

== ENCOUNTER 2024-12-16 15:18 | Emergency (ER) | payer OTHER, SELFPAY ==
[2024-12-16] VITALS (7 sets, daily range): BP systolic 103–109; BP diastolic 63–70; PULSE 80–108; RESP 17–37; TEMP 36.5; O2SAT 99–100
--- NOTE | ~2024-12-16 | US_ITS ---
EXAMINATION: US pelvic complete INDICATION: Ovarian cysts. Rule out torsion. Comparison:CT dated 12/16/2024 TECHNIQUE: Multiple transabdominal and endovaginal sonographic images of the pelvis performed. FINDINGS: The uterus measures 8.8 x 4.2 x 5.1 cm. There is an IUD present in the endometrium. There is a 4.8 cm right ovarian cyst. Normal doppler signal in both ovaries. There is no free fluid in the pelvis. There are no abnormal masses seen on either side. IMPRESSION: 1. Simple right ovarian cyst measuring 4.8 cm. No evidence for ovarian torsion. Reviewed, dictated and finalized at location O.
--- NOTE | ~2024-12-16 | CT_ITS ---
EXAMINATION: CT abdomen pelvis w con DATE: 12/16/2024 17:54 INDICATION: Right lower quadrant pain. TECHNIQUE: Computed tomography (CT) of the abdomen and pelvis was performed with 100 cc Omnipaque 350 intravenous contrast. The dose-length product was 246.15 mGy-cm. Automated exposure control and iterative reconstruction technique were employed. COMPARISON: CT dated 08/20/2024. FINDINGS: There is dependent atelectasis. No significant pleural or pericardial effusion. Borderline heart size. Status post cholecystectomy. There is splenomegaly. Status post cholecystectomy. Persistent stranding adjacent to the pancreatic tail without significant change. There are multiple bilateral renal cysts. Nonobstructive bowel gas pattern. Trace free fluid in the pelvis. There is a 3.7 cm right ovarian cyst. Trace free fluid in the pelvic cul-de-sac. IUD present. There are small periaortic lymph nodes on the left, likely reactive. No significant bone or joint abnormality identified. IMPRESSION: 1. Right ovarian cyst measuring 3.7 cm. Reviewed, dictated and finalized at location O.
--- OUTSIDE RECORDS SUMMARY | 2024-12-16 15:21 | XMS_ITS | Encounter Summary ---
Author Organization [facility] Health Address [address] [place] [address] Care Team Providers Care Sand Buffer Name Role Phone Estephania Moise APRN-SKIDWAY WORKER Primary Care Provider Aurea Lott DO Primary Care Provider Jim Moreland MD Unavailable [phone] Reason for Visit * Reason Onset Date Comments Appointment 03/19/2018 Encounter Details Date Type Department Care Team (Late st Contact Info) Description 03/19/2018 Telephone [facility] General Internal Medicine [address] [facility] [address] [place] [address] Estephania Moise APRN-SKIDWAY WORKER [address] OF [facility] [place] [address] Appointment Social History Tobacco Use Types Packs/Day Years Used Date Smoking Tobacco: Never Smokeless Tobacco: Never Alcohol Use Standard Drinks/Week Comments No 0 (1 standard drink = 0.6 oz pur e alcohol) Comments No Sex and Gender Information Value Date Recorded Sex Assigned at Female 07/13/2021 8:56 AM CDT Legal Sex Female 5:42 AM ROBOTICS SYSTEMS ENGINEER Gender Identity Female 07/13/2021 8:56 AM [...] a message t contact the scheduling department [phone] TICS SYSTEMS ENGINEER * Telephone Encounter - Zohreh Christensen - 03/20/2018 10:37 AM CST 2nd Attempt Called the patient and left a message to contact the scheduling department at [phone] TICS SYSTEMS ENGINEER * Telephone Encounter - Zohreh Christensen - 03/19/2018 10:50 AM CST 1st attempt Called pt left message to contact scheduling department at [phone] TICS SYSTEMS ENGINEER documented in this encounter Plan of Treatment Not on file documented as of this encounter Visit Diagnoses Not on filedocumented in this encounter Care Teams Sand Buffer Relationship Specialty Start Date End Date Estephania Moise, BUSINESS JOB TITLES-SKIDWAY WORKER [address] [place] [address] PCP - General 08/15/17 10/13/21 Aurea Lott DO [address] OF [facility] [place] [address] PCP - General 10/14/21 Jim Moreland MD [address] [facility] [place] [address] Resident - PCP Internal Medicine 10/14/21 documented as of this encounter
--- OUTSIDE RECORDS SUMMARY | 2024-12-16 15:21 | XMS_ITS | Encounter Summary ---
Author Organization [facility] Address [address] [facility] [place] [address] Care Team Providers Care Fisher Lobster Name Role Phone Estephania Moise FRENCH TEACHER-INSPECTOR PROCESS Primary Care Provider Aurea Lott DO Primary Care Provider [phone] Jim Moreland MD Unavailable [phone] Encounter Details Date Type Department Care Team (Late st Contact Info) Description 12/17/2019 Telephone [facility] [address] [place] [address] Akosua Worley MD No info available Social History Tobacco Use Types Packs/Day Years Used Date Smoking Tobacco: Never Smokeless Tobacco: Never Alcohol Use Standard Drinks/Week Comments No 0 (1 standard drink = 0.6 oz pur e alcohol) VERY RARELY Comments No Sex and Gender Information Value Date Recorded Sex Assigned at Female 07/13/2021 8:56 AM CDT Legal Sex Female 5:42 AM AIR CONDITIONING SPECIALIST Gender Identity Female 07/13/2021 8:56 AM CDT Sexual Orientation Bisexual 07/13/2021 8: 56 AM CDT 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 Answer Date of Assessment Author No 09/27/2017 12:24 PM CDT JossueHortencia barajas RN * Is person blind or have [...] only seen him through residents in the [facility] office. She was originally scheduled with Dr. [...] on filedocumented in this encounter Care Teams Fisher Lobster Relationship Specialty Start Date End Date Estephania Moise, FRENCH TEACHER-INSPECTOR PROCESS [address] [place] [address] PCP - General 08/15/17 10/13/21 Aurea Lott DO [address] OF [facility] [place] [address] PCP - General 10/14/21 Jim Moreland MD [address] [facility] [place] [phone] Resident - PCP Internal Medicine 10/14/21 documented as of this encounter
--- OUTSIDE RECORDS SUMMARY | 2024-12-16 15:21 | XMS_ITS | Encounter Summary ---
Author Organization [facility] Health Address [address] [facility] [place] [address] Care Team Providers Care Machine Feeder Name Role Phone Aurea Lott DO Primary Care Provider [phone] Jim Moreland MD Unavailable [phone] Reason for Visit * Reason Onset Date Comments Question 10/18/2021 Encounter Details Date Type Department Care Team (Late st Contact Info) Description 10/18/2021 Telephone [facility] [address] [place] [address] Kimberly Balbuena MD [address] [place] [address] Question Social History Tobacco Use [...] AM CDT Legal Sex Female 5:42 AM LEATHER SORTER Gender Identity Female 07/13/2021 8:56 AM CDT Sexual Orientation Bisexual 07/13/2021 8: 56 AM CDT 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 * Telephone Encounter - Neha Yadav [...] pain precautions ?? * Telephone Encounter - Kelsey Kim - 10/18/2021 1:29 PM CDT Pt in ER on Fri and with kidney and ovarian pain (er did not look at ovaries) and she wants to comein and have a US to just check on things. Please contact # [phone] documented in this encounter Plan of Treatment Not on file documented as of this encounter Visit Diagnoses Not on filedocumented in this encounter Care Teams Machine Feeder Relationship Specialty Start Date End Date Aurea Lott DO [address] [facility] 2L DIV OF [facility] [place] [phone] PCP - General 10/14/21 Jim Moreland MD [address] [facility] [place] [place] [phone] Resident - PCP Internal Medicine 10/14/21 documented as of this encounter
--- OUTSIDE RECORDS SUMMARY | 2024-12-16 15:21 | XMS_ITS | Encounter Summary ---
Author Organization [facility] Health Address [address] [place] [address] Care Team Providers Care Exterior Work Helper Name Role Phone Estephania Moise APRN-ORE STORAGE DRIER Primary Care Provider Aurea Lott DO Primary Care Provider [phone] Jim Moreland MD Unavailable [phone] Reason for Visit * Reason Onset Date Comments Headache 08/08/2018 Encounter Details Date Type Department Care Team (Late st Contact Info) Description 08/08/2018 Nurse Triage [facility] General Internal Medicine [address] [facility] [address] [place] [address] Estephania Moise APRN-ORE STORAGE DRIER [address] OF [place] [address] Headache Social History Tobacco Use Types Packs/Day Years Used Date Smoking Tobacco: Never Smokeless Tobacco: Never Alcohol Use Standard Drinks/Week Comments No 0 (1 standard drink = 0.6 oz pur e alcohol) Comments No Sex and Gender Information Value Date Recorded Sex Assigned at Female 07/13/2021 8:56 AM CDT Legal Sex Female 5:42 AM 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 Answer Entry Date Author No 09/27/2017 12:24 PM Hortencia Ortiz RN documented in this encounter Miscellaneous Notes * Telephone Encounter - Reanna Almanza - 08/08/2018 3:11 PM CDT [place] called pt d/t mychart message received. [employer] message I???m in a lot of pain [...] conference to schedulers. Upon conference, pt disconnected. Senior Php Web Developer verbalized will reach back out to pt to try and reach to schedule ACS visit. Reason for Disposition ??? [1] Weakness of the face, arm or leg on one side of the body AND [2] new onset Protocols used: [id number] Called pt back and unable to reach. Left VM to CB office to sched for ACS visit and left CB# [phone] and closing statement. Appt sched nicole/ Estephania Gutierrez 08/15/18 @ 9:50am documented in this encounter Plan of Treatment Not on file documented as of this encounter Visit Diagnoses Not on filedocumented in this encounter Care Teams Exterior Work Helper Relationship Specialty Start Date End Date Estephania Moise APRN-ORE STORAGE DRIER [address] [place] [address] PCP - General 08/15/17 10/13/21 Aurea Lott DO [address] DIV OF [facility] [place] [phone] PCP - General 10/14/21 Jim Moreland MD [address] [place] [phone] Resident - PCP Internal Medicine 10/14/21 documented as of this encounter
--- OUTSIDE RECORDS SUMMARY | 2024-12-16 15:21 | XMS_ITS | Clinical Summary ---
Author Organization [facility] [employer] Address [address] [facility] [place] [address] Care Team Providers Care Community Leader Name Role Phone Aurea Lott DO Primary Care Provider [phone] Jim Moreland MD Unavailable [phone] Source Comments [facility],non-owned Affiliates and Associated Physician Practices is amultiple site organization consisting of ambulatory clinics and hospital sitesin [place], [place], [place] and [place]. This disclosure is being madepursuant to the Care Everywhere program and may not contain all information available regarding this patient. Last updated 17.[facility] [employer] Allergies Active Allergy Reactions Criticality Noted Date Comments Amoxicillin Urticaria Medium 04/01/2019 Sulfamethoxazole W-Trimethoprim BARREL MAKER Dysfunction 08/09/2017 mentql confusion Iron Vomiting 10/20/2020 Vomits oral iron Lamotrigine Itching 04/21/2022 Penicillins Urticaria,Unknown Medium 09/25/2020 Metoclopramide BARREL MAKER Dysfunction 08/09/2017 Paralysis Medications * This document [...] 023 Active azaTHIOprine (Imuran) 50 MG tabletIndications:Sy stemic lupus erythematosus (SLE) in adult (HCC),assisted current use of immunosuppressive drug,Therapeutic drug monitoring Take 1 (one) tablet by mouth 2 times daily 60 tablet 023 Active gabapentin (Neurontin) 100 MG capsule Take 1 (one) capsule by mouth at bedtime 90 capsule 2 023 Active amphetamine-dextroam phetamine (Adderall) 10 MG tabletIndications:At tention Deficit Hyperactivity Disorder Take 1 (one) tablet by mouth once daily as needed Reasons: Attention Deficit Hyperactivity Disorder 30 tablet 025 Active amphetamine-dextroam phetamine XR 24hr (Adderall XR) 30 MG capsuleIndications:A ttention Deficit Hyperactivity Disorder Take 1 (one) capsule by mouth every morning Reasons: Attention Deficit Hyperactivity Disorder 30 capsule 025 Active QUEtiapine (SEROquel) 25 MG tablet Take 1 (one) tablet by mouth at bedtime for 30 days 30 tablet 025 2024 Active amphetamine-dextroam phetamine (Adderall) 10 MG tabletIndications:At tention Deficit Hyperactivity Disorder Take 1 (one) tablet by mouth once daily as needed Reasons: Attention Deficit Hyperactivity Disorder 30 tablet 025 Active amphetamine-dextroam phetamine XR 24hr (Adderall XR) 30 MG capsuleIndications:A ttention Deficit Hyperactivity Disorder Take 1 (one) capsule by mouth once daily Reasons: Attention Deficit Hyperactivity Disorder 30 capsule 025 Active lamoTRIgine (LaMICtal) 25 MG tablet Take 1 (one) tablet by mouth once daily for 30 days 30 tablet 025 2024 Active amphetamine-dextroam phetamine XR 24hr (Adderall XR) 30 MG capsuleIndications:A ttention Deficit Hyperactivity Disorder Take 1 (one) capsule by mouth once daily Reasons: Attention Deficit Hyperactivity Disorder 30 capsule 025 2024 Disconti nued(Reo rder) QUEtiapine (SEROquel) 50 MG tablet Take 1 (one) tablet by mouth at bedtime 90 tablet 1 025 2024 Disconti nued(Reo rder) amphetamine-dextroam phetamine (Adderall) 10 MG tabletIndications:At tention Deficit Hyperactivity Disorder Take 1 (one) tablet by mouth once daily as needed Reasons: Attention Deficit Hyperactivity Disorder 30 tablet 025 2024 Disconti nued(Reo rder) Active Problems Problem Noted Date Diagnosed Date [...] the patient should be referred to a crusher dry ground mica for further care. If there is no [...] risk of heart block with +SSA; undergoing MI interval surveillance Q2 weeks from 16 to 28 weeks (AHA recommendations). 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 Dx based on cerebritis, pancreatitis, restrictive lung disease, with +JEAN-PAUL, dsDNA, Sm, RIFLE CASE REPAIRER chromatin). Sees Rheumatology. Complicated by restrictive lung [...] organization. Date Type Department Care Team Description 12/03/2024 Travel from Last 3 Months Immunizations Immunization Administration Dates Next Due INFLUENZA VACCINE, TRIV. (AF LURIA, FLUZONE TRIVALENT; 6MO+) (IIV3) 01/15/2013 Covid [place] primary monoval ent 12+ yr 0.3mL Purple [...] Answer Date Recorded Patient Health Questionnaire-2 Score 0 12/03/2024 Education Answer Date Recorded What is the highest level of school you have completed or the highest degree you have received? 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 Not on file Not on file Last Filed Vital Signs Vital Sign Reading Time Taken Comments Blood Pressure 107/75 12/03/2024 9:21 AM CDT Pulse 76 12/03/2024 9:21 AM CDT Temperature 37.1 C (98.7 F) 11/23/2022 3:13 PM CDT Respiratory Rate 18 10/13/2022 9:58 AM CDT Oxygen Saturation 97% 12/03/2024 9:21 AM CDT Inhaled Oxygen Concentration - - Weight 66.2 kg (146 lb) 12/03/2024 9:21 AM CDT Height 154.9 cm (5' 1) 12/03/2024 9:21 AM CDT Body Mass Index 27.59 12/03/2024 9:21 AM CDT Plan of Treatment Health Maintenance Due Date Last Done Comments HEPATITIS B VACCINE (1 of 3 - 19+ 3-dose series) 2011 ZOSTER VACCINE (1 of 2) 2011 HPV VACCINE (2 - 3-dose series) 02/14/2018 01/17/2018 COVID-19 VACCINE (3 - Pfizer risk series) 10/07/2020 09/09/2020, 08/19/2020 PAP SMEAR 05/15/2023 05/15/2020, 06/06/2017 INFLUENZA VACCINE (#1) 2024 , 01/16/2021, 12/02/2017, Additional history exists DTAP/TDAP/TD VACCINES [...] IMAGE-GUIDED RFLX HPV+CT/NG+TRICH Routine 05/15/2020 3:11 PM BOOK STORE ASSOCIATE Screening for cervical cancer Screen for STD [...] a test for HCV RNA (test code 39009) is suggested. For additional information please refer to http://education.[employer]/faq/MXP35y4 (This link is being provided for informational/ educational purposes only.) REPORT COMMENT: FASTING:NO Test Performed at: [facility] [address] [place] [address] ANDRE ARAUJO DO,MPH Blood BLOOD SPECIMEN / Unknown 10/09/2020 10/09/2020 2:07 PM CDT us Isa Rutledge MD LAB - CHEMISTRY ORDERABLES Final Result [facility] [address] [place] [address] * HIV-1 HIV-2 ANTIBODY + HIV P24 [...] purpose. For additional information please refer to http://education.[employer]Gains/faq/XRF234 (This link is being provided for informational/ educational purposes only.) The performance of this assay has not been clinically validated in patients less than 2 years old. Test Performed at: [facility] [address] [place] [address] ANDRE ARAUJO DO,MPH Blood BLOOD SPECIMEN / Unknown 10/09/2020 10/09/2020 2:07 PM CDT Isa Rutledge MD LAB - CHEMISTRY ORDERABLES Final Result [facility] [id number] [address] [place] [id number] * PAP IMAGE-GUIDED RFLX HPV+CT/NG+TRICH (05/15/2020 3:11 PM BOOK STORE ASSOCIATE) Case Report Gynecologic Cytology Report Case: [id number] Authorizing Provider: Garrick Farley MD Collected: 05/15/2020 03:11 PM Ordering Location: [facility] Received: 05/18/2020 12:24 PM [facility] Screen: Guru Ellis Specimen: THINPREP - IMAGE GUIDED, Cervicovaginal 05/19/2020 3:44 PM BOOK STORE ASSOCIATE [facility] LMP preg 05/19/2020 3:44 PM BOOK STORE ASSOCIATE [facility] Menstrual Status 05/19/19 3:44 PM BOOK STORE ASSOCIATE [facility] Comment:7w6d Specimen Adequacy Satisfactory for evaluation, endocervical/trans formation zone component present. 05/19/2020 3:44 PM BOOK STORE ASSOCIATE [facility] Categorization Negative for intraepithelial lesion or malignancy. 05/19/2020 3:44 PM BOOK STORE ASSOCIATE [facility] Interpretation SALES REPRESENTATIVE [employer] Negative for intraepithelial lesion or malignancy. 05/19/2020 3:44 PM BOOK STORE ASSOCIATE [facility] at [address]44 BOOK STORE ASSOCIATE Other Predominance of Coccobacilli consistent with shift in vaginal nenita (vaginosis). Inflammation present. 05/19/2020 3:44 PM BOOK STORE ASSOCIATE [facility] Pap Footnote The Pap Smear is a screening test. False positive and false negative results occur. Negative results do not preclude abnormalities, thus clinical correlation is required. This specimen was evaluated by the [employer] Imaging System along with an additional manual rescreening by a rn rehab and/or pathologist. 05/19/2020 3:44 PM BOOK STORE ASSOCIATE [facility] Embedded Images 3:44 PM BOOK STORE ASSOCIATE [facility] Pathology/Cytolo gy VAGINA AND CERVIX, CS / Unknown 05/15/2020 3:11 PM BOOK STORE ASSOCIATE 05/18/2020 12:24 PM BOOK STORE ASSOCIATE us Garrick Farley MD LAB - PATHOLOGY/CYTOLOGY ORDERA BANNERRenae Final Result [facility] [address] [phone] from Last 3 Months or Most Recently Relevant to Health Maintenance Insurance [facility] Advance Directives * Full Code (Latest Code [...] 4:56 AM 10/02/2017 7:23 PM Care Teams Community Leader Relationship Specialty Start Date End Date Aurea Lott DO [address] [place] [address] PCP - General 10/14/21 Jim Moreland MD [address] [facility] [place] [phone] Resident - PCP Internal Medicine 10/14/21
--- OUTSIDE RECORDS SUMMARY | 2024-12-16 15:21 | XMS_ITS | Encounter Summary ---
Author Organization [facility] Address [address] [place] [address] Care Team Providers Care Electric Melt Operator Name Role Phone Estephania Moise APRN-MARBLEIZING MACHINE TENDER Primary Care Provider Aurea Lott DO Primary Care Provider [phone] Jim Moreland MD Unavailable [phone] Reason for Visit * Reason Onset Date Comments Headache 08/06/2018 Encounter Details Date Type Department Care Team (Late st Contact Info) Description 08/06/2018 Telephone [facility] Internal Medicine [address] [facility] [address] [place] [address] Estephania Moise APRN-MARBLEIZING MACHINE TENDER [address] [place] [address] Headache Social History Tobacco Use Types Packs/Day Years Used Date Smoking Tobacco: Never Smokeless Tobacco: Never Alcohol Use Standard Drinks/Week Comments No 0 (1 standard drink = 0.6 oz pur e alcohol) Comments No Sex and Gender Information Value Date Recorded Sex Assigned at Female 07/13/2021 8:56 AM CDT Legal Sex Female 5:42 AM 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 CONDUCTOR Gender Identity Female 07/13/2021 8:56 AM CDT [...] and is requesting to be contacted at [phone] by theprovider to further discuss this matter Message routed to the provider for further review and assistance documented in this encounter Plan of Treatment Not on file documented as of this encounter Visit Diagnoses Not on filedocumented in this encounter Care Teams Electric Melt Operator Relationship Specialty Start Date End Date Estephania Moise, SLIP COVER OPERATOR-MARBLEIZING MACHINE TENDER [address] [place] [address] PCP - General 08/15/17 10/13/21 Aurea Lott DO [address] [place] [address] PCP - General 10/14/21 Jim Moreland MD [address] [facility] [place] [phone] Resident - PCP Internal Medicine 10/14/21 documented as of this encounter
--- OUTSIDE RECORDS SUMMARY | 2024-12-16 15:21 | XMS_ITS | Encounter Summary ---
Author Organization [facility] Address [address] [facility] [place] [address] Care Team Providers Care Psychologist Engineering Name Role Phone Estephania Moise APRN-SEED DISTRICT SALES MANAGER Primary Care Provider Aurea Lott DO Primary Care Provider Jim Moreland MD Unavailable [phone] Reason for Visit * Reason Onset Date Comments MEDICATION REFILL 02/26/2018 Encounter Details Date Type Department Care Team (Late st Contact Info) Description 02/26/2018 Refill [facility] Rheumatology [address] [place] [address] Jana Saenz DO [address] [place] [address] MEDICATION REFILL Social History Tobacco Use Types Packs/Day Years Used Date Smoking Tobacco: Never Smokeless Tobacco: Never Alcohol Use Standard Drinks/Week Comments No 0 (1 standard drink = 0.6 oz pur e alcohol) Comments No Sex and Gender Information Value Date Recorded Sex Assigned at Female 07/13/2021 8:56 AM CDT Legal Sex Female 5:42 AM SENIOR SOFTWARE DEVELOPMENT MANAGER Gender Identity Female 07/13/2021 8:56 AM CDT Sexual Orientation Bisexual 07/13/2021 8: 56 AM CDT 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 Jana Saenz DO Rheumatology Fellow [facility] Pager: [phone] OR SOFTWARE DEVELOPMENT MANAGER documented in this encounter Plan of Treatment Not on file documented as of this encounter Visit Diagnoses Diagnosis Systemic lupus erythematosus (SLE) in adult (HCC) Anxiety Anxiety state, unspecified with one fetus in second trimester (HCC) rn long term care current use of immunosuppressive drug Encounter for therapeutic drug monitoring documented in this encounter Care Teams Psychologist Engineering Relationship Specialty Start Date End Date Estephania Moise APRN-SEED DISTRICT SALES MANAGER [address] [place] [address] PCP - General 08/15/17 10/13/21 Aurea Lott DO [address] [facility] [address] DIV OF [facility] [place] [phone] PCP - General 10/14/21 Jim Moreland MD [address] [facility] [place] [phone] Resident - PCP Internal Medicine 10/14/21 documented as of this encounter
--- OUTSIDE RECORDS SUMMARY | 2024-12-16 15:21 | XMS_ITS | Encounter Summary ---
Author Organization [facility] Address [address] [facility] [place] [address] Care Team Providers Care Supervisor Bit And Shank Department Name Role Phone Aurea Lott DO Primary Care Provider [phone] Jim Moreland MD Unavailable [phone] Reason for Visit * Reason Onset Date Comments MEDICATION REFILL 12/20/2021 Encounter Details Date Type Department Care Team (Late st Contact Info) Description 12/20/2021 Refill [facility] Rhe[facility] [address] [place] [phone] Luanne Downs MD [address] [place], [place] [address] MEDICATION REFILL Social History Tobacco Use Types [...] AM CDT Legal Sex Female 5:42 AM 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 Answer Date of Assessment Author No 12/12/2020 7:41 PM Leslee Hess RN documented as of this encounter Mental Status * Does person have difficulty concentrating/remembering/making decisions? Answer Entry Date Author No 12/12/2020 7:41 PM Leslee Hess RN documented in this encounter Miscellaneous Notes * Telephone Encounter - AdamShajichandler - 12/20/2021 9:50 AM CDT Refill Request Thalia Fatima Ivette DARIO: 10/26/2021Feb scheduled: 01/17/2022 LRF: 10/26/2021 Qty Disp: 4 # of refills: 30 Refill Request Thalia A Ivette DARIO: 10/26/2021Feb scheduled: 01/17/2022 LRF: 10/26/2021 Qty Disp: 45 # of refills: 5 Allergies: Allergies Allergen Reactions ??? Amoxicillin Urticaria ??? Penicillins Urticaria and Unknown ??? Reglan [Metoclopramide] ARCHIVIST POLITICAL HISTORY Dysfunction Paralysis ??? Bactrim [Sulfamethoxazole W-Trimethoprim] ARCHIVIST POLITICAL HISTORY Dysfunction mentql confusion ??? Iron Vomiting Vomits [...] Penicillins Urticaria and Unknown ??? Reglan [Metoclopramide] ARCHIVIST POLITICAL HISTORY Dysfunction Paralysis ??? Bactrim [Sulfamethoxazole W-Trimethoprim] ARCHIVIST POLITICAL HISTORY Dysfunction mentql confusion ??? Iron Vomiting Vomits [...] Systemic lupus erythematosus (SLE) in adult (HCC) MCC current use of immunosuppressive drug Therapeutic drug monitoring Encounter for therapeutic drug monitoring documented in this encounter Care Teams Supervisor Bit And Shank Department Relationship Specialty Start Date End Date Aurea Lott DO [address] [facility] [address] OF [facility] [place] [phone] PCP - General 10/14/21 iJm Moreland MD [address] [facility] [place] [phone] Resident - PCP Internal Medicine 10/14/21 documented as of this encounter
--- OUTSIDE RECORDS SUMMARY | 2024-12-16 15:21 | XMS_ITS | Encounter Summary ---
Author Organization [facility] Address [address] [facility] [place] [address] Care Team Providers Care Wireless Internet Installer Name Role Phone Estephania Moise APRN-RESIDENTIAL CHILD CARE COUNSELOR Primary Care Provider Aurea Lott DO Primary Care Provider Jim Moreland MD Unavailable [phone] Encounter Details Date Type Department Care Team (Late st Contact Info) Description 01/23/2018 Telephone [facility] Internal Medicine [address] [facility] [address] [place] [address] Estephania Moise APRN-RESIDENTIAL CHILD CARE COUNSELOR [address] 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
--- NOTE | 2024-12-16 16:28 | ED.ABDPAIN ---
HPI - Abdominal Pain General Chief Complaint: Abdominal Pain Stated Complaint: hives, hematuria, right flank pain Time Seen by Provider: 12/16/24 15:58 Source: patient Mode of arrival: ambulatory Limitations: no limitations History of Present Illness HPI narrative: Patient is a 34-year-old female who presents the ED with report of rash in right lower quadrant abdominal pain. Patient reports having a rash/diffuse hives throughout her back/trunk/extremities since Monday night. She was started on lamotrigine for mood stabilizer last Monday. Her last dose of this was on Monday. She stopped taking this when she developed a rash. She has messaged her psychiatrist, but has not heard back yet. Reports diffuse itching. Denies difficulty breathing or swallowing. Reports also having right lower abdominal pain since yesterday. Believes she may have had blood in her urine yesterday. Denies blood today. Denies vaginal bleeding, dysuria, nausea, vomiting, diarrhea, constipation, fevers. Related Data Home Medications ?Medication ?Instructions ?Recorded ?Confirmed ?Last Taken ?Type dextroamphetamine-amphetamine ER 10 mg PO DAILY 12/22/21 07/15/24 Unknown History 30 mg 24hr capsule,extend release quetiapine 25 mg tablet 50 mg PO PRN PRN (Drug) Ingestion 05/12/22 07/15/24 Unknown History Allergies Allergy/AdvReac Type Severity Reaction Status Date / Time amoxicillin Allergy Severe Hives Verified 12/16/24 15:20 lamotrigine Allergy Severe Hives Verified 12/16/24 15:20 metoclopramide Allergy Severe Other Verified 12/16/24 15:20 sulfamethoxazole (From Allergy Severe Confusion Verified 12/16/24 15:20 Bactrim) trimethoprim (From Bactrim) Allergy Severe Confusion Verified 12/16/24 15:20 iron AdvReac Severe Vomiting Verified 12/16/24 15:20 Review of Systems Review of Systems: All systems reviewed & are unremarkable except as noted in HPI. All systems reviewed & are unremarkable except as noted in HPI and below PMFSH Past Medical History Medical History Bipolar 1 disorder, mixed, moderate Anxiety Depression Seizure Pancreatitis Pulmonary embolism Lupus Surgical History Surgical History Previous section History of cholecystectomy (Unknown) Family History Family History Grandparent DVT (deep venous thrombosis) Cancer Heart disease Thyroid disorder Father Diabetes mellitus Depression Cerebrovascular accident Social History Social History Smoking status: Never smoker Alcohol intake: never Substance use: never Substance use type: marijuana and methamphetamine Do You Feel Safe in your Home?: Yes Lack of Transportation: No Lack of Food: Never True Current Housing: I Have Housing Concerned About Future Housing: No Difficulty Paying Gas/Electric Bills: No Difficulty Paying for Meds: No Currently Unemployed: No Education: High School Diploma/GED Difficulty w/ Childcare or Family Care: No Gender identity (if verbalized by the patient): Female Sexual Orientation (if Verbalized by the Patient): Straight or Heterosexual Spiritual care concerns: No Exam Narrative: GENERAL: Uncomfortable appearing, well-nourished, non-toxic, in no acute distress. HEAD: Normocephalic, atraumatic. RESPIRATORY: Airway patent, respirations nonlabored. Clear to auscultation bilaterally, no rales, rhonchi, wheezing. CARDIOVASCULAR: Regular rate and rhythm without murmurs, rubs, or gallops. ABDOMINAL: Soft, mild focal tenderness to palpation in RLQ, no rebound, nondistended. Normoactive BS. MUSCULOSKELETAL: Moves all extremities. No gross deformities. SKIN: Warm, dry. Diffuse morbilliform rash throughout back, trunk, extremities, slightly erythematous. Some regions are coalescing into more urticarial like lesions. Skin integrity is intact. No blisters or skin sloughing. No mucosal lesions. NEURO: A&O X3. Speech clear. Cranial nerves II-XII grossly intact. Steady gait. No ataxic movements. PSYCHIATRIC: Appropriate mood and affect. Normal interaction. Course Vital Signs Vital signs: Vital Signs Temperature 97.7 F 12/16/24 15:34 Pulse Rate 108 H 12/16/24 15:34 Respiratory Rate 18 12/16/24 15:34 Blood Pressure 103/69 12/16/24 15:34 Pulse Oximetry 99 12/16/24 15:34 Oxygen Delivery Room Air 12/16/24 15:34 Temperature 97.7 F 12/16/24 15:34 Pulse Rate 80 12/16/24 19:34 Respiratory Rate 20 12/16/24 19:34 Blood Pressure 106/63 12/16/24 19:34 Pulse Oximetry 100 12/16/24 19:34 Oxygen Delivery Room Air 12/16/24 15:34 MDM - Abdominal Pain MDM Narrative Medical decision making narrative: Patient presented to ED with several day history of diffuse rash/urticaria, recently started on lamotrigine. Has not taken this in 2 days since rash developed. Also reporting right lower quadrant abdominal pain since yesterday. Patient mildly tachycardic, mildly uncomfortable upon arrival. C/o pain/itching. Afebrile here. Exam consistent with morbilliform rash/urticaria, no evidence of SJS/TEN. No mucosal involvement. Skin integrity is intact. No evidence of anaphylaxis, resp compromise or distress. Patient given Solu-Medrol, Benadryl, pepcid. Laboratory studies without leukocytosis or significant anemia. Mild leukopenia consistent with previous records. Platelets within normal range. CMP with mild transaminitis. Fairly consistent with previous records. Normal bilirubin. Normal lipase. UA consistent with infection, positive nitrate, 1+ leuk esterase, 11-20 WBC, 4+ urine bacteria. Sent for culture. Will treat. CT of the abdomen/pelvis was obtained and showing evidence of right-sided ovarian cyst. Trace free fluid. Pelvic ultrasound obtained and w/o evidence of torsion. Patient updated on lab and imaging findings. Discussed discontinuation of lamotrigine, continued management of allergic reaction, advised close follow-up with psychiatrist for further evaluation/medication management. Will discharge on steroid course. Recommended close follow-up with OBGYN for further evaluation of ovarian cyst. 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 Discussed treatment for UTI. Discussed strict return precautions. Patient in agreement with plan. Feels comfortable going home. Discharged in stable condition. Medical Records Attestation: I reviewed the patient's medical records. Lab Data Attestation: I reviewed the patient's lab results. 12/16/24 16:45 12/16/24 16:45 Labs: Lab Results 12/16/24 12/16/24 Range/Units 16:45 16:54 WBC 3.1 L (4.5-10.0) K/mm3 RBC 4.36 (4.2-5.4) M/mm3 Hgb 11.3 L (12.0-15.0) g/dL Hct 35.3 L (37.0-47.0) % MCV 81.0 (80-100) fl MCH 25.9 L (26-34) pg MCHC 32.0 (32-36) g/dl RDW 14.9 H (11.5-14.5) % Plt Count 203 (150-375) k/mm3 MPV 10.7 H (7.4-10.4) fl Immature Gran % (Auto) 0.3 (0-0.5) % Neut % (Auto) 73.6 H (45.5-73.1) % Lymph % (Auto) 17.3 L (18.3-44.2) % Ashe % (Auto) 6.2 (2.6-8.5) % Eos % (Auto) 2.3 (0-4.4) % Baso % (Auto) 0.3 (0.2-1.2) % Lymph # (Auto) 0.53 L (0.9-3.2) K/mm3 Ashe # (Auto) 0.2 (0.1-0.6) K/mm3 Eos # (Auto) 0.1 (0-0.3) K/mm3 Baso # (Auto) 0.0 (0.0-0.1) K/mm3 Abs Immat Gran (auto) 0.01 (0.00-0.031) K/mm3 Absolute Neuts (auto) 2.3 (1.3-6.7) K/mm3 Absolute Nucleated RBC 0.000 (0.0-0.012) K/mm3 Nucleated RBC % 0.0 (0.0-0.2) % Sodium 136 L (137-145) mmol/L Potassium 3.6 (3.4-5.0) mmol/L Chloride 104 (98-107) mmol/L Carbon Dioxide 21 L (22-30) mmol/L Anion Gap 11 (4-12) mmol/L BUN 7 (7-17) mg/dL Creatinine 0.64 L (0.7-1.0) mg/dL Estim Creat Clear Calc 93 ml/min Estimated GFR > 60 (59 - ) Glucose 88 (65-110) mg/dL Calcium 9.2 (8.4-10.2) mg/dL Total Bilirubin 1.0 (0.2-1.3) mg/dL AST 86 H (14-36) U/L ALT 41 H (6-35) U/L Alkaline Phosphatase 72 (38-126) U/L Total Protein 8.3 H (6.3-8.2) g/dL Albumin 4.3 (3.5-5.1) g/dL Lipase 44 (23-300) U/L Urine Color Yellow (Yellow) Urine Appearance Cloudy H (Clear) Urine pH 6.5 (5.0-9.0) Ur Specific Zirconia 1.017 (1.001-1.035) Urine Protein Negative (Negative) mg/dL Urine Glucose (UA) Negative (Negative) mg/dL Urine Ketones Negative (Negative) mg/dL Ur Blood (Man) Negative (Negative) Urine Nitrate Positive H (Negative) Urine Bilirubin Negative (Negative) Urine Urobilinogen 1.0 (<2.0) mg/dL Leukocyte Esterase Rfl 1+ H (Negative) TIFFANI/UL Urine RBC 0-2 (0-2) /hpf Urine WBC 11-20 H (0-3) /hpf Ur Squamous Epith Cells Few (Few) /hpf Urine Bacteria 4+ H /hpf Urine Casts 0-2 POC Urine HCG, Qual Negative (Negative) Imaging Data Attestation: I personally reviewed and interpreted this imaging study as follows: Radiologist's impression: ITS Impressions Abdomen/Pelvis CT 12/16/24 18:10 IMPRESSION: 1. Right ovarian cyst measuring 3.7 cm. Pelvis Ultrasound 12/16/24 18:45 IMPRESSION: 1. Simple right ovarian cyst measuring 4.8 cm. No evidence for ovarian torsion. Discharge Plan Discharge Clinical Impression: Adverse effect of lamotrigine, Urticaria, Cyst of right ovary UTI (urinary tract infection) Qualifiers: Urinary tract infection type: site unspecified Hematuria presence: without hematuria Qualified Code(s): N39.0 - Urinary tract infection, site not specified Patient Disposition: Home Condition: Stable Instructions: Antibiotic Form, Ovarian Cyst (ED), Urinary Tract Infection in Women (ED), Urticaria (ED) Additional Instructions: Discontinue lamotrigine entirely. You will need to follow-up with your psychiatrist for further medication management. Take steroids as prescribed over the next 5 days. Continue Benadryl as needed for itching. You may also take Zyrtec or claritin if needed to avoid sedative effect of benadryl. Your urine showed signs of infection. Take antibiotics as prescribed. You were also diagnosed with a right-sided ovarian cyst. Follow-up with OBGYN for further evaluation of this. Continue Tylenol/ibuprofen, heating pad as needed for pain. Return to the ED if you experience worsening or severe pain, unable to keep down food or drink, fevers, abnormal vaginal bleeding, difficulty breathing or swallowing, severe skin peeling, or any other symptoms of concern. Patient Language: Scottish Prescriptions: New cephalexin 500 mg capsule 500 mg PO Q6H 7 Days Qty: 28 0RF prednisone 50 mg tablet 50 mg PO DAILY Qty: 5 0RF No Action quetiapine 25 mg tablet 50 mg PO PRN PRN (Reason: (Drug) Ingestion) dextroamphetamine-amphetamine 30 mg capsule,extended release 24hr 10 mg PO DAILY hydrocodone-acetaminophen 5-325 mg tablet 1 tablet PO Q6H PRN (Reason: pain) Qty: 25 0RF nitrofurantoin monohyd/m-cryst [Macrobid] 100 mg capsule 100 mg PO Q12H 5 Days Qty: 10 0RF Rx Instructions: must administer with a meal/food naproxen [Naprosyn] 500 mg tablet 500 mg PO BID PRN (Reason: pain) Qty: 14 0RF cyclobenzaprine 10 mg tablet 10 mg PO TID PRN (Reason: muscle spasm) Qty: 20 0RF Follow-up/Referrals: UNKNOWN,DOCTOR [Primary Care Provider] Ash Angel MD [Physician, CAUSTIC PREPARER] Referral Note: OBGYN Time of Disposition: 18:54
[2024-12-16] MEDS: SODIUM CHLORIDE 0.9% IV 1,000 ML 999 ML IV CONT (16:37)
[2024-12-16] MEDS: ONDANSETRON INJ 4 MG/2 ML VIAL IV PUSH (16:40)
[2024-12-16] MEDS: MORPHINE SULFATE (*CRX) 4 MG/ML INJ IV PUSH ×2 (16:42→18:57)
--- OUTSIDE RECORDS SUMMARY | 2024-12-16 16:48 | XMS_ITS | Encounter Summary ---
Author Organization [facility] Health Address [address] [place] [address] Care Team Providers Care Boarder Steam Name Role Phone Aurea Lott DO Primary Care Provider [phone] Jim Moreland MD Unavailable [phone] Reason for Visit * Reason Onset Date Comments MEDICATION REFILL 12/20/2021 Encounter Details Date Type Department Care Team (Late st Contact Info) Description 12/20/2021 Refill [facility] [address] [place] [phone] Luanne Downs MD [address] [place], [place] [id number] MEDICATION REFILL Social History Tobacco Use Types [...] AM CDT Legal Sex Female 5:42 AM 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 Reglan [Metoclopramide] FISCAL CLERK Dysfunction Paralysis ??? Bactrim [Sulfamethoxazole W-Trimethoprim] FISCAL CLERK Dysfunction mentql confusion ??? Iron Vomiting Vomits [...] Penicillins Urticaria and Unknown ??? Reglan [Metoclopramide] FISCAL CLERK Dysfunction Paralysis ??? Bactrim [Sulfamethoxazole W-Trimethoprim] FISCAL CLERK Dysfunction mentql confusion ??? Iron Vomiting Vomits [...] Systemic lupus erythematosus (SLE) in adult (HCC) detention current use of immunosuppressive drug Therapeutic drug monitoring Encounter for therapeutic drug monitoring documented in this encounter Care Teams Boarder Steam Relationship Specialty Start Date End Date Aurea Lott DO [address] [facility] [address] [facility] [place] [phone] PCP - General 10/14/21 Jim Moreland MD [address] [facility] [place] [phone] Resident - PCP Internal Medicine 10/14/21 documented as of this encounter
--- OUTSIDE RECORDS SUMMARY | 2024-12-16 16:48 | XMS_ITS | Clinical Summary ---
Author Organization [facility] Address [address] [place] [address] Care Team Providers Care Oven Worker Name Role Phone None, Provider MD Primary [...] Sex Assigned at Female 05/02/2023 2:01 PM POCKET MARKER Legal Sex Female 9:31 AM CDT Gender Identity Female 05/02/2023 2:01 PM POCKET MARKER Sexual Orientation Bisexual 05/02/2023 2: 01 PM POCKET MARKER Last Filed Vital Signs Vital Sign Reading Time Taken Comments Blood Pressure 129/83 05/02/2023 2:02 PM POCKET MARKER Pulse 78 05/02/2023 2:02 PM POCKET MARKER Temperature 36.4 C (97.6 F) 05/02/2023 10:24 AM POCKET MARKER Respiratory Rate 18 05/02/2023 2:02 PM POCKET MARKER Oxygen Saturation 100% 05/02/2023 2:02 PM POCKET MARKER Inhaled Oxygen Concentration - - Weight 68 kg (150 lb) 05/02/2023 10:24 AM POCKET MARKER Height 154.9 cm (5' 1) 05/02/2023 10:24 AM POCKET MARKER Body Mass Index 28.34 05/02/2023 10:24 AM POCKET MARKER Plan of Treatment Health Maintenance Due Date [...] th HPV 2022 COVID-19 Vaccine (3 - 2024-2 6 season) 2024 09/09/2020, 08/19/2020 DTaP, Tdap and Td Vaccines [...] patient's age to complete this topic Insurance [place] [employer] Care Teams Oven Worker Relationship Specialty Start Date End Date None, Provider, PCP - General 03/31/21
--- OUTSIDE RECORDS SUMMARY | 2024-12-16 16:48 | XMS_ITS | Encounter Summary ---
Author Organization [facility] Health Address [address] [facility] [place] [address] Care Team Providers Care River Transportation Worker Name Role Phone Estephania Moise APRN-SLIDE MACHINE TENDER Primary Care Provider Aurea Lott DO Primary Care Provider Jim Moreland MD Unavailable [phone] Encounter Details Date Type Department Care Team (Late st Contact Info) Description 01/23/2018 Telephone [facility] Medicine [address] [facility] [address] [place] [address] Estephania Moise APRN-SLIDE MACHINE TENDER [address] [place] [facility] [place] [place] [address] Social History Tobacco Use Types Packs/Day Years Used Date Smoking Tobacco: Never Smokeless Tobacco: Never Alcohol Use Standard Drinks/Week Comments No 0 (1 standard drink = 0.6 oz pur e alcohol) Comments No Sex and Gender Information Value Date Recorded Sex Assigned at Female 07/13/2021 8:56 AM CDT Legal Sex Female 5:42 AM ADDICTIONS RECOVERY SPECIALIST Gender Identity Female 07/13/2021 8:56 AM CDT Sexual Orientation Bisexual 07/13/2021 8: 56 AM CDT 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
--- OUTSIDE RECORDS SUMMARY | 2024-12-16 16:48 | XMS_ITS | Encounter Summary ---
Author Organization [facility] Address [address] [facility] [place] [address] Care Team Providers Care Cotton Picking Machine Operator Name Role Phone Estephania Moise APRN-COST ACCOUNTING MANAGER Primary Care Provider Aurea Lott DO Primary Care Provider Jim Moreland MD Unavailable [phone] Reason for Visit * Reason Onset Date Comments Headache 08/06/2018 Encounter Details Date Type Department Care Team (Late st Contact Info) Description 08/06/2018 Telephone [facility] [address] [facility] [address] [place] [address] Estephania Moise APRN-COST ACCOUNTING MANAGER [address] [place] [address] Headache Social History Tobacco Use Types Packs/Day Years Used Date Smoking Tobacco: Never Smokeless Tobacco: Never Alcohol Use Standard Drinks/Week Comments No 0 (1 standard drink = 0.6 oz pur e alcohol) Comments No Sex and Gender Information Value Date Recorded Sex Assigned at Female 07/13/2021 8:56 AM CDT Legal Sex Female 5:42 AM SOCIAL MEDIA SR STRATEGY MANAGER Gender Identity Female 07/13/2021 8:56 AM [...] and is requesting to be contacted at [phone] by theprovider to further discuss this matter Message routed to the provider for further review and assistance documented in this encounter Plan of Treatment Not on file documented as of this encounter Visit Diagnoses Not on filedocumented in this encounter Care Teams Cotton Picking Machine Operator Relationship Specialty Start Date End Date Estephania Moise, ENTHONE SOLDER STRIPPER-COST ACCOUNTING MANAGER [address] [place] [address] PCP - General 08/15/17 10/13/21 Aurea Lott DO [address] [place] [phone] PCP - General 10/14/21 Jim Moreland MD [address] [facility] [place] [phone] Resident - PCP Internal Medicine 10/14/21 documented as of this encounter
--- OUTSIDE RECORDS SUMMARY | 2024-12-16 16:48 | XMS_ITS | Clinical Summary ---
Author Organization [facility] [employer] Address [address] [facility] [place] [address] Care Team Providers Care Supervisor Central Supply Name Role Phone Aurea Lott DO Primary Care Provider [phone] Jim Moreland MD Unavailable [phone] Source Comments [facility],non-owned Affiliates and Associated Physician Practices is amultiple site organization consisting of ambulatory clinics and hospital sitesin [place], [place], [place] and [place]. This disclosure is being madepursuant to the Care Everywhere program and may not contain all information available regarding this patient. Last updated 17.[facility] [employer] Allergies Active Allergy Reactions Criticality Noted Date Comments Amoxicillin Urticaria Medium 04/01/2019 Sulfamethoxazole W-Trimethoprim CHUTE GREASER Dysfunction 08/09/2017 mentql confusion Iron Vomiting 10/20/2020 Vomits oral iron Lamotrigine Itching 04/21/2022 Penicillins Urticaria,Unknown Medium 09/25/2020 Metoclopramide CHUTE GREASER Dysfunction 08/09/2017 Paralysis Medications * This document [...] tabletIndications:Sy stemic lupus erythematosus (SLE) in adult (HCC),skilled nursing current use of immunosuppressive drug,Therapeutic drug monitoring [...] the patient should be referred to a tank tender for further care. 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 Dx based on cerebritis, pancreatitis, restrictive lung disease, with +JEAN-PAUL, dsDNA, Sm, BARREL MAKER chromatin). Sees Rheumatology. 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 For additional information please refer to http://education.VDI Space/faq/EKE06q9 (This link is being provided for informational/ educational purposes only.) REPORT COMMENT: FASTING:NO Test Performed at: [facility] [address] [place] [address] ANDRE ARAUJO DO,MPH Blood BLOOD SPECIMEN / Unknown 10/09/2020 10/09/2020 2:07 PM CDT us Isa Rutledge MD LAB - CHEMISTRY ORDERABLES Final Result [facility] [address] [place] [address] * HIV-1 HIV-2 ANTIBODY + HIV P24 [...] purpose. For additional information please refer to http://education.VDI Space/faq/TRX980 (This link is being provided for informational/ educational purposes only.) The performance of this assay has not been clinically validated in patients less than 2 years old. Test Performed at: [facility] [address] [place] [address] ANDRE ARAUJO DO,MPH Blood BLOOD SPECIMEN / Unknown 10/09/2020 10/09/2020 2:07 PM CDT Isa Rutledge MD LAB - CHEMISTRY ORDERABLES Final Result [facility] [address] [facility] [place] [id number] * PAP IMAGE-GUIDED RFLX HPV+CT/NG+TRICH (05/15/2020 3:11 PM HELPER [employer]) Case Report Gynecologic Cytology Report Case: [id number] Authorizing Provider: Garrick Farley MD Collected: 05/15/2020 03:11 PM Ordering Location: [facility] Received: 05/18/2020 12:24 PM [facility] Screen: Guru Ellis Specimen: THINPREP - IMAGE GUIDED, Cervicovaginal 05/19/2020 3:44 PM [employer] [facility] LMP preg 05/19/2020 3:44 PM HELPER [employer] [facility] Menstrual Status 05/19/19 3:44 PM HELPER [employer] [facility] Comment:7w6d Specimen Adequacy Satisfactory for evaluation, endocervical/trans formation zone component present. 05/19/2020 3:44 PM HELPER CHICKEN [employer]ARM [facility] Categorization Negative for intraepithelial lesion or malignancy. 05/19/2020 3:44 PM HELPER CHICKEN FARM [facility] Interpretation MUFFLER HAND Negative for intraepithelial lesion or malignancy. 05/19/2020 3:44 PM HELPER CHICKEN FARM [facility] at [address] [employer] Other Predominance of Coccobacilli consistent with shift in vaginal nenita (vaginosis). Inflammation present. 05/19/2020 3:44 PM HELPER [employer] [facility] Pap Footnote The Pap Smear is a screening test. False positive and false negative results occur. Negative results do not preclude abnormalities, thus clinical correlation is required. This specimen was evaluated by the CelladonPrep Imaging System along with an additional manual rescreening by a footwear sales coordinator and/or pathologist. 05/19/2020 3:44 PM HELPER CH[employer] [facility] Embedded Images 3:44 PM [employer] [facility] Pathology/Cytolo gy VAGINA AND CERVIX, CS / Unknown 05/15/2020 3:11 PM [employer]ARM 05/18/2020 12:24 PM [employer] us Garrick Farley MD LAB - PATHOLOGY/CYTOLOGY [facility]A [facility] Final Result [facility] [address] [phone] from Last 3 Months or Most Recently Relevant to Health Maintenance Insurance [facility] Advance Directives * Full Code (Latest Code [...] 4:56 AM 10/02/2017 7:23 PM Care Teams Supervisor Central Supply Relationship Specialty Start Date End Date Aurea Lott DO [address] [place] [phone] PCP - General 10/14/21 Jim Moreland MD [address] [facility] [place] [phone] Resident - PCP Internal Medicine 10/14/21
--- OUTSIDE RECORDS SUMMARY | 2024-12-16 16:48 | XMS_ITS | Encounter Summary ---
Author Organization [facility] Health Address [address] [facility] [place] [address] Care Team Providers Care Day Haul Youth Supervisor Name Role Phone Aurea Lott DO Primary Care Provider Jim Moreland MD Unavailable [phone] Reason for Visit * Reason Onset Date Comments Question 10/18/2021 Encounter Details Date Type Department Care Team (Late st Contact Info) Description 10/18/2021 Telephone [facility] [address] [place] [address] Kimberly Balbuena MD [address] [place] [address] Question Social History Tobacco Use [...] AM CDT 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 * Telephone Encounter - Neha Yadav [...] just check on things. Please contact # [phone] documented in this encounter Plan of Treatment Not on file documented as of this encounter Visit Diagnoses Not on filedocumented in this encounter Care Teams Day Haul Youth Supervisor Relationship Specialty Start Date End Date Aurea Lott DO [address] [facility] 2L DIV OF [facility] [place] [address] PCP - General 10/14/21 Jim Moreland MD [address] [facility] [place] [place] [phone] Resident - PCP Internal Medicine 10/14/21 documented as of this encounter
--- OUTSIDE RECORDS SUMMARY | 2024-12-16 16:48 | XMS_ITS | Encounter Summary ---
Author Organization [facility] Health Address [address] [facility] [address] Care Team Providers Care Sheetfed Press Operator Name Role Phone Estephania Moise APRN-COMMUNITY OUTREACH ADVOCATE Primary Care Provider Aurea Lott DO Primary Care Provider Jim Moreland MD Unavailable [phone] Reason for Visit * Reason Onset Date Comments Appointment 03/19/2018 Encounter Details Date Type Department Care Team (Late st Contact Info) Description 03/19/2018 Telephone [facility] General Internal Medicine [address] [facility] [address] [place] [address] Estephania Moise APRN-COMMUNITY OUTREACH ADVOCATE [address] OF [facility] [place] [place] [address] Appointment Social History Tobacco Use Types Packs/Day Years Used Date Smoking Tobacco: Never Smokeless Tobacco: Never Alcohol Use Standard Drinks/Week Comments No 0 (1 standard drink = 0.6 oz pur e alcohol) Comments No Sex and Gender Information Value Date Recorded Sex Assigned at Female 07/13/2021 8:56 AM CDT Legal Sex Female 5:42 AM SCHOOL COMMUNITY RELATIONS COORDINATOR Gender Identity Female 07/13/2021 8:56 AM CDT [...] Author No 09/27/2017 12:24 PM CDT Hortencia Macrum RN * Does person have difficulty doing [...] a message t contact the scheduling department [phone] OL COMMUNITY RELATIONS COORDINATOR * Telephone Encounter - Zohreh Christensen - 03/20/2018 10:37 AM CST 2nd Attempt Called the patient and left a message to contact the scheduling department at [phone] OL COMMUNITY RELATIONS COORDINATOR * Telephone Encounter - Zohreh Christensen - 03/19/2018 10:50 AM CST 1st attempt Called pt left message to contact scheduling department at [phone] OL COMMUNITY RELATIONS COORDINATOR documented in this encounter Plan of Treatment Not on file documented as of this encounter Visit Diagnoses Not on filedocumented in this encounter Care Teams Sheetfed Press Operator Relationship Specialty Start Date End Date Estephania Moise, UTILITY SALES AND SERVICE MANAGER-COMMUNITY OUTREACH ADVOCATE [address] [place] [address] PCP - General 08/15/17 10/13/21 Aurea Lott DO [address] OF [facility] [place] [address] PCP - General 10/14/21 Jim Moreland MD [address] [facility] [place] [address] Resident - PCP Internal Medicine 10/14/21 documented as of this encounter
--- OUTSIDE RECORDS SUMMARY | 2024-12-16 16:48 | XMS_ITS | Encounter Summary ---
Author Organization [facility] Health Address [address] [place] [address] Care Team Providers Care Integration Solution Architect Name Role Phone Estephania Moise APRN-LANDSCAPE PHOTOGRAPHER Primary Care Provider Aurea Lott DO Primary Care Provider [phone] Jim Moreland MD Unavailable [phone] Reason for Visit * Reason Onset Date Comments Headache 08/08/2018 Encounter Details Date Type Department Care Team (Late st Contact Info) Description 08/08/2018 Nurse Triage [facility] General Internal Medicine [address] [facility] [address] [place] [address] Estephania Moise APRN-LANDSCAPE PHOTOGRAPHER [address] OF [place] [address] Headache Social History Tobacco Use Types Packs/Day Years Used Date Smoking Tobacco: Never Smokeless Tobacco: Never Alcohol Use Standard Drinks/Week Comments No 0 (1 standard drink = 0.6 oz pur e alcohol) Comments No Sex and Gender Information Value Date Recorded Sex Assigned at Female 07/13/2021 8:56 AM CDT 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 SeedInvesthart message I???m in a lot of pain [...] conference to schedulers. Upon conference, pt disconnected. [facility] verbalized will reach back out to pt to try and reach to schedule ACS visit. Reason for Disposition ??? [1] Weakness of the face, arm or leg on one side of the body AND [2] new onset Protocols used: [id number] Called pt back and unable to reach. Left VM to CB office to sched for ACS visit and left CB# [phone] and closing statement. Appt sched nicole/ Estephania Gutierrez 08/15/18 @ 9:50am documented in this encounter Plan of Treatment Not on file documented as of this encounter Visit Diagnoses Not on filedocumented in this encounter Care Teams Integration Solution Architect Relationship Specialty Start Date End Date Estephania Moise APRN-LANDSCAPE PHOTOGRAPHER [address] [place] [address] PCP - General 08/15/17 10/13/21 Aurea Lott DO [address] DIV OF [facility] [place] [address] PCP - General 10/14/21 Jim Moreland MD [address] [place] [phone] Resident - PCP Internal Medicine 10/14/21 documented as of this encounter
--- OUTSIDE RECORDS SUMMARY | 2024-12-16 16:48 | XMS_ITS | Encounter Summary ---
Author Organization [facility] Address [address] [place] [address] Care Team Providers Care Twist Packer Name Role Phone Estephania Moise APRN-POULTRY FARMWORKER Primary Care Provider Aurea Lott DO Primary Care Provider Jim Moreland MD Unavailable [phone] Reason for Visit * Reason Onset Date Comments MEDICATION REFILL 02/26/2018 Encounter Details Date Type Department Care Team (Late st Contact Info) Description 02/26/2018 Refill [facility] Rheumatology [address] [place] [address] Jana Saenz DO [address] [place] [address] MEDICATION REFILL Social History Tobacco Use Types Packs/Day Years Used Date Smoking Tobacco: Never Smokeless Tobacco: Never Alcohol Use Standard Drinks/Week Comments No 0 (1 standard drink = 0.6 oz pur e alcohol) Comments No Sex and Gender Information Value Date Recorded Sex Assigned at Female 07/13/2021 8:56 AM CDT Legal Sex Female 5:42 AM PUBLIC WORKS INSPECTOR Gender Identity Female 07/13/2021 8:56 AM CDT Sexual Orientation Bisexual 07/13/2021 8: 56 AM CDT 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 Jana Saenz DO Rheumatology Fellow [facility] Pager: [phone] IC WORKS INSPECTOR documented in this encounter Plan of Treatment Not on file documented as of this encounter Visit Diagnoses Diagnosis Systemic lupus erythematosus (SLE) in adult (HCC) Anxiety Anxiety state, unspecified with one fetus in second trimester (HCC) on line csr current use of immunosuppressive drug Encounter for therapeutic drug monitoring documented in this encounter Care Teams Twist Packer Relationship Specialty Start Date End Date Estephania Moise APRN-POULTRY FARMWORKER [address] [place] [address] PCP - General 08/15/17 10/13/21 Aurea Lott DO [address] [facility] 2L DIV OF [facility] [place] [phone] PCP - General 10/14/21 Jim Moreland MD [address] [facility] [place] [phone] Resident - PCP Internal Medicine 10/14/21 documented as of this encounter
--- OUTSIDE RECORDS SUMMARY | 2024-12-16 16:48 | XMS_ITS | Encounter Summary ---
Author Organization [facility] Health Address [address] [facility] [place] [address] Care Team Providers Care Dry Talc Racker Name Role Phone Estephania Moise APRN-AIR OPERATIONS MANAGER Primary Care Provider Aurea Lott DO Primary Care Provider [phone] Jim Moreland MD Unavailable [phone] Reason for Visit * Reason Onset Date Comments POST COMPLICATIONS 10/09/2017 post p artum depression symptoms Encounter Details Date Type Department Care Team (Late st Contact Info) Description 10/09/2017 Nurse Triage [facility] General Internal Medicine [address] [facility] [address] [place] [address] Estephania Moise APRN-CNP [address] OF [facility] [place] [address] POST COMPLICATIONS (post depression symptoms ) Social History Tobacco Use Types Packs/Day Years Used Date Smoking Tobacco: Never Smokeless Tobacco: Never Alcohol Use Standard Drinks/Week Comments No 0 (1 standard drink = 0.6 oz pur e alcohol) Comments No Sex and Gender Information Value Date Recorded Sex Assigned at Female 07/13/2021 8:56 AM CDT 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 Patient reports that she does not have a therapist and attempted to provide patient with suicide hotline and resources and patient verbalized that she has the those number handy. Care advice provided, patient verbalized understanding. Scheduled 10-10-17 @ 2:00 with CULINARY ART TEACHER Scheduled 10-10-17 @ 9:20am ACS Reason for [...] Patient reports September 29 Protocols used: - [id number] Disposition provided to be seen in acute care clinic within 3 days per protocol. Patient warm transfered to [facility] scheduling team for assistance with scheduling an appointment..If anything new develops,if anything gets worse or if you become increasingly concerned for any reason, please seek out immediate medical Attention. documented in this encounter Plan of Treatment Not on file documented as of this encounter Visit Diagnoses Not on filedocumented in this encounter Care Teams Dry Talc Racker Relationship Specialty Start Date End Date Estephania Moise APRN-AIR OPERATIONS MANAGER [address] [place] [address] PCP - General 08/15/17 10/13/21 Aurea Lott DO [address] OF [facility] INTER[place] [address] PCP - General 10/14/21 Jim Moreland MD [address] [place] [address] [address] [facility] Internal Medicine 10/14/21 documented as of this encounter
--- OUTSIDE RECORDS SUMMARY | 2024-12-16 16:48 | XMS_ITS | Encounter Summary ---
Author Organization [facility] Address [address] [facility] [place] [address] Care Team Providers Care Health Social Work Professor Name Role Phone Estephania Moise EXTRACTION MACHINE OPERATOR-MICROBIOLOGY COORDINATOR Primary Care Provider Aurea Lott DO Primary Care Provider [phone] Jim Moreland MD Unavailable Encounter Details Date Type Department Care Team (Late st Contact Info) Description 12/17/2019 Telephone [facility] [address] [place] [address] Akosua Worley MD No info available Social History Tobacco Use Types Packs/Day Years Used Date Smoking Tobacco: Never Smokeless Tobacco: Never Alcohol Use Standard Drinks/Week Comments No 0 (1 standard drink = 0.6 oz pur e alcohol) VERY RARELY Comments No Sex and Gender Information Value Date Recorded Sex Assigned at Female 07/13/2021 8:56 AM CDT 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 She was originally scheduled with [...] on filedocumented in this encounter Care Teams Health Social Work Professor Relationship Specialty Start Date End Date Estephania Moise, EXTRACTION MACHINE OPERATOR-MICROBIOLOGY COORDINATOR [address] [place] [address] PCP - General 08/15/17 10/13/21 Aurea Lott DO [address] OF [facility] [place] [address] PCP - General 10/14/21 Jim Moreland MD [address] [facility] [place] [phone] Resident - PCP Internal Medicine 10/14/21 documented as of this encounter
[2024-12-16 16:54] LABS: Hematocrit 35.3 % (37.0-47.0); Hemoglobin 11.3 g/dL (12.0-15.0); Immature Granulocyte Percent A 0.3 % (0-0.5); Lymphocytes Absolute Auto 0.53 K/mm3 (0.9-3.2); Mean Corpuscular HGB Conc 32.0 g/dl (32-36); Mean Corpuscular Hemoglobin 25.9 pg (26-34); Mean Corpuscular Volume 81.0 fl (80-100); Nucleated Red Blood Cells Absolute Auto 0.000 K/mm3 (0.0-0.012); Nucleated Red Blood Cells Perc 0.0 % (0.0-0.2); Platelet Count Result 203 k/mm3 (150-375); Red Blood Count 4.36 M/mm3 (4.2-5.4); White Blood Count 3.1 K/mm3 (4.5-10.0)
[2024-12-16 16:58] LABS: Add Urine Microscopic? YES; Appearance Urine Cloudy (Clear); Glucose Urine UA Negative (Negative); Leukocyte Esterase Ur 1+ LEU/UL (Negative); Nitrate Urine Positive (Negative); Non Pathogenic Casts 0-2; Specific Grav Ur 1.017 (1.001-1.035)
[2024-12-16 17:01] LABS: BEDSIDEPREGUCG Negative (Negative)
[2024-12-16 17:21] LABS: Alanine Aminotransferase 41 U/L (6-35); Albumin Level 4.3 g/dL (3.5-5.1); Alkaline Phosphatase 72 U/L (38-126); Anion Gap 11 mmol/L (4-12); Aspartate Amino Transferase 86 U/L (14-36); Bilirubin,Total 1.0 mg/dL (0.2-1.3); Blood Urea Nitrogen 7 mg/dL (7-17); Calcium 9.2 mg/dL (8.4-10.2); Carbon Dioxide 21 mmol/L (22-30); Chloride 104 mmol/L (98-107); Estimated CRCL calculation 93 ml/min; Estimated Glomerular Filt Rate > 60; Glucose 88 mg/dL (65-110); Lipase 44 U/L (23-300); Potassium 3.6 mmol/L (3.4-5.0); Sodium 136 mmol/L (137-145); Total Protein 8.3 g/dL (6.3-8.2)
[2024-12-16] MEDS: FAMOTIDINE 20 MG/2 ML VIAL IV PUSH (18:57)
== END 2024-12-16 19:37 | disposition home or self-care (01) ==
PROVIDERS: Emergency Provider Physician Assistant
DX: L50.0 Allergic urticaria (principal); T42.6X5A Adverse effect of other antiepileptic and sedative-hypnotic drugs, initial encounter; N39.0 Urinary tract infection, site not specified; N83.291 Other ovarian cyst, right side; M32.9 Systemic lupus erythematosus, unspecified; Z90.49 Acquired absence of other specified parts of digestive tract; F31.9 Bipolar disorder, unspecified; F41.9 Anxiety disorder, unspecified; Z86.711 Personal history of pulmonary embolism
CPT/HCPCS: 36415; 74177; 76856; 80053; 81001; 81025; 83690; 85025; 87086; 87186; 96374; 96375; 96376; 99284; J1200; J2270; J2405; J2919; J7030; Q9967

== ENCOUNTER 2024-12-19 09:20 | Emergency (ER) | payer OTHER, SELFPAY ==
[2024-12-19] VITALS (17 sets, daily range): BP systolic 114–122; BP diastolic 72–85; PULSE 84–102; RESP 16–18; TEMP 36.6; O2SAT 93–100
--- OUTSIDE RECORDS SUMMARY | 2024-12-19 09:58 | XMS_ITS | Clinical Summary ---
Author Organization [facility] Address [address] [facility] [place] [address] Care Team Providers Care Propagation Manager Name Role Phone Aurea Lott DO Primary Care Provider [phone] Jim Moreland MD Unavailable [phone] Source Comments [facility],non-owned Affiliates and Associated Physician Practices is amultiple site organization consisting of ambulatory clinics and hospital sitesin [place], [place], [place] and [place]. This disclosure is being madepursuant to the Care Everywhere program and may not contain all information available regarding this patient. Last updated 17.[facility] Cuff-Protect Allergies Active Allergy Reactions Criticality Noted Date Comments Amoxicillin Urticaria Medium 04/01/2019 Sulfamethoxazole W-Trimethoprim INVOICING MACHINE OPERATOR Dysfunction 08/09/2017 mentql confusion Iron Vomiting 10/20/2020 Vomits oral iron Lamotrigine Itching 04/21/2022 Penicillins Urticaria,Unknown Medium 09/25/2020 Metoclopramide INVOICING MACHINE OPERATOR Dysfunction 08/09/2017 Paralysis Medications * This document [...] the patient should be referred to a retail product advisor for further care. If there is no [...] risk of heart block with +SSA; undergoing GA interval surveillance Q2 weeks from 16 to 28 weeks (AHA recommendations). Restrictive lung disease 08/09/2017 Overview (09/25/2020): Related to SLE, stable - Followed by csw, next visit 12/02/20 PFTs 08/28 Interpretation: The [...] 2012: related to ICU stay Anxiety 07/31/2017 skilled nursing current use of immunosuppressive drug 07/31/2017 SLE (systemic lupus erythematosus) 12/06/2012 Overview (09/25/2020): Diagnosed in 2007 (Positive SSA Ab. Dx based on cerebritis, pancreatitis, restrictive lung disease, with +JEAN-PAUL, dsDNA, Sm, RETAIL TRAINING MANAGER chromatin). Sees Rheumatology. 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 For additional information please refer to http://education.[employer]/faq/LFG69o9 (This link is being provided for informational/ educational purposes only.) REPORT COMMENT: FASTING:NO Test Performed at: [facility] [address] [place] [address] ANDRE ARAUJO DO,MPH Blood BLOOD SPECIMEN / Unknown 10/09/2020 10/09/2020 2:07 PM CDT us Isa Rutledge MD LAB - CHEMISTRY ORDERABLES Final Result [facility] [address] [place] [address] * HIV-1 HIV-2 ANTIBODY + HIV P24 [...] purpose. For additional information please refer to http://education.[employer]/faq/XBY772 (This link is being provided for informational/ educational purposes only.) The performance of this assay has not been clinically validated in patients less than 2 years old. Test Performed at: [facility] [address] [place] [address] ANDRE ARAUJO DO,MPH Blood BLOOD SPECIMEN / Unknown 10/09/2020 10/09/2020 2:07 PM CDT Isa Rutledge MD LAB - CHEMISTRY ORDERABLES Final Result [facility] [id number] [address] [place] [id number] * PAP IMAGE-GUIDED RFLX HPV+CT/NG+TRICH (05/15/2020 3:11 PM CATERPILLAR TRACTOR OPERATOR) Case Report Gynecologic Cytology Report Case: [id number] Authorizing Provider: Garrick Farley MD Collected: 05/15/2020 03:11 PM Ordering Location: [facility] Received: 05/18/2020 12:24 PM [facility] Screen: Guru Ellis Specimen: THINPREP - IMAGE GUIDED, Cervicovaginal 05/19/2020 3:44 PM CATERPILLAR TRACTOR OPERATOR [facility] LMP preg 05/19/2020 3:44 PM CATERPILLAR TRACTOR OPERATOR [facility] Menstrual Status 05/19/19 3:44 PM CATERPILLAR TRACTOR OPERATOR [facility] Comment:7w6d Specimen Adequacy Satisfactory for evaluation, endocervical/trans formation zone component present. 05/19/2020 3:44 PM CATERPILLAR TRACTOR OPERATOR [facility] Categorization Negative for intraepithelial lesion or malignancy. 05/19/2020 3:44 PM CATERPILLAR TRACTOR OPERATOR [facility] Interpretation POWER GENERATION PLANT OPERATOR Negative for intraepithelial lesion or malignancy. 05/19/2020 3:44 PM CATERPILLAR TRACTOR OPERATOR [facility] at 1544 CATERPILLAR TRACTOR OPERATOR Other Predominance of Coccobacilli consistent with shift in vaginal nenita (vaginosis). Inflammation present. 05/19/2020 3:44 PM CATERPILLAR TRACTOR OPERATOR [facility] Pap Footnote The Pap Smear is a screening test. False positive and false negative results occur. Negative results do not preclude abnormalities, thus clinical correlation is required. This specimen was evaluated by the Time WardenPrep Imaging System along with an additional manual rescreening by a technical project lead and/or pathologist. 05/19/2020 3:44 PM CATERPILLAR TRACTOR OPERATOR [facility] Embedded Images 3:44 PM CATERPILLAR TRACTOR OPERATOR [facility] Pathology/Cytolo gy VAGINA AND CERVIX, CS / Unknown 05/15/2020 3:11 PM CATERPILLAR TRACTOR OPERATOR 05/18/2020 12:24 PM CATERPILLAR TRACTOR OPERATOR us Garrick Farley MD LAB - PATHOLOGY/CYTOLOGY [facility]A [facility] Final Result [facility] [address] [phone] from Last 3 Months or Most Recently Relevant to Health Maintenance Insurance [facility] Advance Directives * Full Code (Latest [...] 4:56 AM 10/02/2017 7:23 PM Care Teams Propagation Manager Relationship Specialty Start Date End Date Aurea Lott DO [address] [place] [address] PCP - General 10/14/21 Jim Moreland MD [address] [facility] [place] [phone] Resident - PCP Internal Medicine 10/14/21
--- OUTSIDE RECORDS SUMMARY | 2024-12-19 09:58 | XMS_ITS | Encounter Summary ---
Author Organization [facility] Health Address [address] [facility] [place] [address] Care Team Providers Care Clinical Trial Coordinator Name Role Phone Aurea Lott DO Primary Care Provider [phone] Jim Moreland MD Unavailable [phone] Reason for Visit * Reason Onset Date Comments MEDICATION REFILL 12/20/2021 Encounter Details Date Type Department Care Team (Late st Contact Info) Description 12/20/2021 Refill [facility] [address] [place] [phone] Luanne Downs MD [address] [place], [place] [address] MEDICATION REFILL Social History Tobacco Use Types [...] AM CDT Legal Sex Female 5:42 AM HOT MILL OBSERVER Gender Identity Female 07/13/2021 8:56 AM CDT Sexual Orientation Bisexual 07/13/2021 8: 56 AM CDT 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 Reglan [Metoclopramide] TICKER INSTALLER Dysfunction Paralysis ??? Bactrim [Sulfamethoxazole W-Trimethoprim] TICKER INSTALLER Dysfunction mentql confusion ??? Iron Vomiting Vomits [...] Penicillins Urticaria and Unknown ??? Reglan [Metoclopramide] TICKER INSTALLER Dysfunction Paralysis ??? Bactrim [Sulfamethoxazole W-Trimethoprim] TICKER INSTALLER Dysfunction mentql confusion ??? Iron Vomiting Vomits [...] Systemic lupus erythematosus (SLE) in adult (HCC) [facility] current use of immunosuppressive drug Therapeutic drug monitoring Encounter for therapeutic drug monitoring documented in this encounter Care Teams Clinical Trial Coordinator Relationship Specialty Start Date End Date Aurea Lott DO [address] [facility] 2L DIV OF [facility] [place] [phone] PCP - General 10/14/21 Jim Moreland MD [address] [facility] [place] [phone] Resident - PCP Internal Medicine 10/14/21 documented as of this encounter
--- OUTSIDE RECORDS SUMMARY | 2024-12-19 09:58 | XMS_ITS | Encounter Summary ---
Author Organization [facility] Health Address [address] [place] [address] Care Team Providers Care Sulphate Tester Name Role Phone Aurea Lott DO Primary Care Provider Jim Moreland MD Unavailable [phone] Reason for Visit * Reason Onset Date Comments Question 10/18/2021 Encounter Details Date Type Department Care Team (Late st Contact Info) Description 10/18/2021 Telephone [facility] [address] [place] [address] Kimberly Balbuena MD [address] [place] [address] Question Social History Tobacco Use [...] AM CDT Legal Sex Female 5:42 AM LENS GENERATOR Gender Identity Female 07/13/2021 8:56 AM CDT Sexual Orientation Bisexual 07/13/2021 8: 56 AM CDT 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 * Telephone Encounter - Neha Yadav [...] just check on things. Please contact # [phone] documented in this encounter Plan of Treatment Not on file documented as of this encounter Visit Diagnoses Not on filedocumented in this encounter Care Teams Sulphate Tester Relationship Specialty Start Date End Date Aurea Lott DO [address] [facility] 2[address] DIV OF [facility] [place] [place] [phone] PCP - General 10/14/21 Jim Moreland MD [address] [facility] [place] [place] [phone] Resident - PCP Internal Medicine 10/14/21 documented as of this encounter
--- OUTSIDE RECORDS SUMMARY | 2024-12-19 09:59 | XMS_ITS | Encounter Summary ---
Author Organization [facility] Address [address] [facility] [place] [address] Care Team Providers Care Surveillance Supervisor Name Role Phone Estephania Moise APRN-BARREL WATERER Primary Care Provider Aurea Lott DO Primary Care Provider Jim Moreland MD Unavailable [phone] Reason for Visit * Reason Onset Date Comments Headache 08/06/2018 Encounter Details Date Type Department Care Team (Late st Contact Info) Description 08/06/2018 Telephone [facility] General Internal Medicine [address] [facility] [address] [place] [address] Estephania Moise APRN-BARREL WATERER [address] OF [place] [address] Headache Social History Tobacco Use Types Packs/Day Years Used Date Smoking Tobacco: Never Smokeless Tobacco: Never Alcohol Use Standard Drinks/Week Comments No 0 (1 standard drink = 0.6 oz pur e alcohol) Comments No Sex and Gender Information Value Date Recorded Sex Assigned at Female 07/13/2021 8:56 AM CDT Legal Sex Female 5:42 AM FEEDER/FOLDER Gender Identity Female 07/13/2021 8:56 AM CDT [...] and is requesting to be contacted at [phone] by theprovider to further discuss this matter Message routed to the provider for further review and assistance documented in this encounter Plan of Treatment Not on file documented as of this encounter Visit Diagnoses Not on filedocumented in this encounter Care Teams Surveillance Supervisor Relationship Specialty Start Date End Date Estephania Moise, MANUFACTURING COST ESTIMATOR-BARREL WATERER [address] [place] [address] PCP - General 08/15/17 10/13/21 Aurea Lott DO [address] [place] [address] PCP - General 10/14/21 Jim Moreland MD [address] [facility] [place] [address] Resident - PCP Internal Medicine 10/14/21 documented as of this encounter
--- OUTSIDE RECORDS SUMMARY | 2024-12-19 09:59 | XMS_ITS | Encounter Summary ---
Author Organization [facility] Address [address] [facility] [place] [address] Care Team Providers Care It Support Manager Name Role Phone Estephania Moise DRY COLOR MIXER-STATION ENGINEER MAIN LINE Primary Care Provider Aurea Lott DO Primary Care Provider [phone] Jim Moreland MD Unavailable [phone] Encounter Details Date Type Department Care Team (Late st Contact Info) Description 12/17/2019 Telephone [facility] [address] [place] [address] Akosua Worley MD No info available Social History Tobacco Use Types Packs/Day Years Used Date Smoking Tobacco: Never Smokeless Tobacco: Never Alcohol Use Standard Drinks/Week Comments No 0 (1 standard drink = 0.6 oz pur e alcohol) VERY RARELY Comments No Sex and Gender Information Value Date Recorded Sex Assigned at Female 07/13/2021 8:56 AM CDT 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 She was originally scheduled with [...] on filedocumented in this encounter Care Teams It Support Manager Relationship Specialty Start Date End Date Estephania Moise, DRY COLOR MIXER-STATION ENGINEER MAIN LINE [address] [place] [address] PCP - General 08/15/17 10/13/21 Aurea Lott DO [address] OF [facility] [place] [address] PCP - General 10/14/21 Jim Moreland MD [address] [facility] [place] [phone] Resident - PCP Internal Medicine 10/14/21 documented as of this encounter
--- OUTSIDE RECORDS SUMMARY | 2024-12-19 09:59 | XMS_ITS | Encounter Summary ---
Author Organization [facility] Health Address [address] [place] [address] Care Team Providers Care Machine Tool Rebuilder Name Role Phone Estephania Moise APRN-GLASS LOADING EQUIPMENT TENDER Primary Care Provider Aurea Lott DO Primary Care Provider [phone] Jim Moreland MD Unavailable [phone] Encounter Details Date Type Department Care Team (Late st Contact Info) Description 01/23/2018 Telephone [facility] General Internal Medicine [address] [facility] [address] [place] [address] Estephania Moise APRN-GLASS LOADING EQUIPMENT TENDER [address] [facility] [place] [address] Social History Tobacco Use Types Packs/Day Years Used Date Smoking Tobacco: Never Smokeless Tobacco: Never Alcohol Use Standard Drinks/Week Comments No 0 (1 standard drink = 0.6 oz pur e alcohol) Comments No Sex and Gender Information Value Date Recorded Sex Assigned at Female 07/13/2021 8:56 AM CDT Legal Sex Female 5:42 AM SAFETY CLOTHING AND EQUIPMENT DEVELOPER Gender Identity Female 07/13/2021 8:56 AM CDT Sexual Orientation Bisexual 07/13/2021 8: 56 AM CDT 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
--- OUTSIDE RECORDS SUMMARY | 2024-12-19 09:59 | XMS_ITS | Encounter Summary ---
Author Organization [facility] Health Address [address] [facility] [place] [address] Care Team Providers Care Scheduling Agent Name Role Phone Estephania Moise APRN-GAS TURBINE MECHANIC Primary Care Provider Aurea Lott DO Primary Care Provider Jim Moreland MD Unavailable [phone] Reason for Visit * Reason Onset Date Comments Appointment 03/19/2018 Encounter Details Date Type Department Care Team (Late st Contact Info) Description 03/19/2018 Telephone [facility] General Internal Medicine [address] [facility] [address] [place] [address] Estephania Moise APRN-GAS TURBINE MECHANIC [address] OF [facility] [place] [address] Appointment Social History Tobacco Use Types Packs/Day Years Used Date Smoking Tobacco: Never Smokeless Tobacco: Never Alcohol Use Standard Drinks/Week Comments No 0 (1 standard drink = 0.6 oz pur e alcohol) Comments No Sex and Gender Information Value Date Recorded Sex Assigned at Female 07/13/2021 8:56 AM CDT Legal Sex Female 5:42 AM C.O.D. CLERK Gender Identity Female 07/13/2021 8:56 AM [...] a message t contact the scheduling department [phone] C.O.D. CLERK * Telephone Encounter - Zohreh Christensen - 03/20/2018 10:37 AM CST 2nd Attempt Called the patient and left a message to contact the scheduling department at [phone] C.O.D. CLERK * Telephone Encounter - Zohreh Christensen - 03/19/2018 10:50 AM CST 1st attempt Called pt left message to contact scheduling department at [phone] C.O.D. CLERK documented in this encounter Plan of Treatment Not on file documented as of this encounter Visit Diagnoses Not on filedocumented in this encounter Care Teams Scheduling Agent Relationship Specialty Start Date End Date Estephania Moise, TALENT RECRUITER-GAS TURBINE MECHANIC [address] [place] [address] PCP - General 08/15/17 10/13/21 Aurea Lott DO [address] OF [facility] [place] [address] PCP - General 10/14/21 Jim Moreland MD [address] [facility] [place] [address] Resident - PCP Internal Medicine 10/14/21 documented as of this encounter
--- OUTSIDE RECORDS SUMMARY | 2024-12-19 09:59 | XMS_ITS | Encounter Summary ---
Author Organization [facility] Health Address [address] [facility] [place] [address] Care Team Providers Care Machine Tech Name Role Phone Estephania Moise APRN-DROP WIRE HANGER Primary Care Provider Aurea Lott DO Primary Care Provider Jim Moreland MD Unavailable [phone] Reason for Visit * Reason Onset Date Comments Headache 08/08/2018 Encounter Details Date Type Department Care Team (Late st Contact Info) Description 08/08/2018 Nurse Triage [facility] General Internal Medicine [address] [facility] [address] [place] [address] Estephania Moise APRN-DROP WIRE HANGER [address] OF GEN [place] [address] Headache Social History Tobacco Use Types Packs/Day Years Used Date Smoking Tobacco: Never Smokeless Tobacco: Never Alcohol Use Standard Drinks/Week Comments No 0 (1 standard drink = 0.6 oz pur e alcohol) Comments No Sex and Gender Information Value Date Recorded Sex Assigned at Female 07/13/2021 8:56 AM CDT Legal Sex Female 5:42 AM EMBEDDED SOFTWARE ENGINEER Gender Identity Female 07/13/2021 8:56 AM [...] [place] called pt d/t mychart message received. [employer] Architectshart message I???m in a lot of pain [...] conference to schedulers. Upon conference, pt disconnected. Unclaimed Property Manager verbalized will reach back out to pt to try and reach to schedule ACS visit. Reason for Disposition ??? [1] Weakness of the face, arm or leg on one side of the body AND [2] new onset Protocols used: [id number] Called pt back and unable to reach. Left VM to CB office to sched for ACS visit and left CB# [phone] and closing statement. Appt sched nicole/ Estephania Gutierrez 08/15/18 @ 9:50am documented in this encounter Plan of Treatment Not on file documented as of this encounter Visit Diagnoses Not on filedocumented in this encounter Care Teams Machine Tech Relationship Specialty Start Date End Date Estephania Moise APRN-DROP WIRE HANGER [address] [place] [address] PCP - General 08/15/17 10/13/21 Aurea Lott DO [address] DIV OF [facility] [place] [address] PCP - General 10/14/21 Jim Moreland MD [address] [place] [phone] Resident - PCP Internal Medicine 10/14/21 documented as of this encounter
--- OUTSIDE RECORDS SUMMARY | 2024-12-19 09:59 | XMS_ITS | Clinical Summary ---
Author Organization [facility] Address [address] [place] [address] Care Team Providers Care Picker Packer Name Role Phone None, Provider MD Primary [...] Sex Assigned at Female 05/02/2023 2:01 PM ALUMINUM SIDING APPLICATOR Legal Sex Female 9:31 AM CDT Gender Identity Female 05/02/2023 2:01 PM ALUMINUM SIDING APPLICATOR Sexual Orientation Bisexual 05/02/2023 2: 01 PM ALUMINUM SIDING APPLICATOR Last Filed Vital Signs Vital Sign Reading Time Taken Comments Blood Pressure 129/83 05/02/2023 2:02 PM ALUMINUM SIDING APPLICATOR Pulse 78 05/02/2023 2:02 PM ALUMINUM SIDING APPLICATOR Temperature 36.4 C (97.6 F) 05/02/2023 10:24 AM ALUMINUM SIDING APPLICATOR Respiratory Rate 18 05/02/2023 2:02 PM ALUMINUM SIDING APPLICATOR Oxygen Saturation 100% 05/02/2023 2:02 PM ALUMINUM SIDING APPLICATOR Inhaled Oxygen Concentration - - Weight 68 kg (150 lb) 05/02/2023 10:24 AM ALUMINUM SIDING APPLICATOR Height 154.9 cm (5' 1) 05/02/2023 10:24 AM ALUMINUM SIDING APPLICATOR Body Mass Index 28.34 05/02/2023 10:24 AM ALUMINUM SIDING APPLICATOR Plan of Treatment Health Maintenance Due Date [...] patient's age to complete this topic Insurance [employer]AC[employer]HAR[employer]Y [employer] Care Teams Picker Packer Relationship Specialty Start Date End Date None, Provider, PCP - General 03/31/21
--- OUTSIDE RECORDS SUMMARY | 2024-12-19 09:59 | XMS_ITS | Encounter Summary ---
Author Organization [facility] Health Address [address] [address] Care Team Providers Care Spanish Interpreter/Translator Name Role Phone Estephania Moise APRN-MARSHMALLOW MACHINE WORKER Primary Care Provider Aurea Lott DO Primary Care Provider [phone] Jim Moreland MD Unavailable [phone] Reason for Visit * Reason Onset Date Comments POST COMPLICATIONS 10/09/2017 post p artum depression symptoms Encounter Details Date Type Department Care Team (Late st Contact Info) Description 10/09/2017 Nurse Triage [facility] General Internal Medicine [address] [facility] [address] [place] [address] Estephania Moise APRN-CNP [address] OF [facility] [place] [address] POST COMPLICATIONS (post depression symptoms ) Social History Tobacco Use Types Packs/Day Years Used Date Smoking Tobacco: Never Smokeless Tobacco: Never Alcohol Use Standard Drinks/Week Comments No 0 (1 standard drink = 0.6 oz pur e alcohol) Comments No Sex and Gender Information Value Date Recorded Sex Assigned at Female 07/13/2021 8:56 AM CDT Legal Sex Female 5:42 AM ORDNANCE KEEPER Gender Identity Female 07/13/2021 8:56 AM CDT Sexual Orientation Bisexual 07/13/2021 8: 56 AM CDT 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 Scheduled 10-10-17 @ 2:00 with INDUSTRY ANALYST Scheduled 10-10-17 @ 9:20am ACS Reason for [...] Patient reports September 29 Protocols used: - [id number] Disposition provided to be seen in acute care clinic within 3 days per protocol. Patient warm transfered to [facility] scheduling team for assistance with scheduling an appointment..If anything new develops,if anything gets worse or if you become increasingly concerned for any reason, please seek out immediate medical Attention. documented in this encounter Plan of Treatment Not on file documented as of this encounter Visit Diagnoses Not on filedocumented in this encounter Care Teams Spanish Interpreter/Translator Relationship Specialty Start Date End Date Estephania Moise APRN-MARSHMALLOW MACHINE WORKER [address] [place] [address] PCP - General 08/15/17 10/13/21 Aurea Lott DO [address] OF [facility] [place] [address] PCP - General 10/14/21 Jim Moreland MD [address] [place] [address] Resident - [facility] Internal Medicine 10/14/21 documented as of this encounter
--- OUTSIDE RECORDS SUMMARY | 2024-12-19 09:59 | XMS_ITS | Encounter Summary ---
Author Organization [facility] Address [address] [facility] [place] [address] Care Team Providers Care Clam Grower Name Role Phone Estephania Moise APRN-ACUTE CARE PHYSICAL THERAPIST Primary Care Provider Aurea Lott DO Primary Care Provider Jim Moreland MD Unavailable [phone] Reason for Visit * Reason Onset Date Comments MEDICATION REFILL 02/26/2018 Encounter Details Date Type Department Care Team (Late st Contact Info) Description 02/26/2018 Refill [facility] Rheumatology [address] [place] [address] Jana Saenz DO [address] [place] [address] MEDICATION REFILL Social History Tobacco Use Types Packs/Day Years Used Date Smoking Tobacco: Never Smokeless Tobacco: Never Alcohol Use Standard Drinks/Week Comments No 0 (1 standard drink = 0.6 oz pur e alcohol) Comments No Sex and Gender Information Value Date Recorded Sex Assigned at Female 07/13/2021 8:56 AM CDT Legal Sex Female 5:42 AM ALINING INSPECTOR Gender Identity Female 07/13/2021 8:56 AM CDT Sexual Orientation Bisexual 07/13/2021 8: 56 AM CDT 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 Jana Saenz DO Rheumatology Fellow [facility] Pager: [phone] ING INSPECTOR documented in this encounter Plan of Treatment Not on file documented as of this encounter Visit Diagnoses Diagnosis Systemic lupus erythematosus (SLE) in adult (HCC) Anxiety Anxiety state, unspecified with one fetus in second trimester (HCC) [facility] current use of immunosuppressive drug Encounter for therapeutic drug monitoring documented in this encounter Care Teams Clam Grower Relationship Specialty Start Date End Date Estephania Moise APRN-ACUTE CARE PHYSICAL THERAPIST [address] [place] [address] PCP - General 08/15/17 10/13/21 Aurea Lott DO [address] [facility] 2[address] DIV OF [facility] [place] [address] PCP - General 10/14/21 Jim Moreland MD [address] [facility] [place] [address] Resident - PCP Internal Medicine 10/14/21 documented as of this encounter
--- NOTE | 2024-12-19 10:29 | ED.ALLEREA ---
HPI - Allergic Reaction General Chief complaint: Allergic Reaction Stated complaint: hives, possible allergic rxn Time Seen by Provider: 12/19/24 09:34 History of Present Illness HPI narrative: Pt recently started on lamotrigine and developed itchy rash. Pt seen here 3 days ago for same. Pt sasy she was discharged on prednisone but hives have persisted. Pt denies SOB or throat swelling. Related Data Home Medications ?Medication ?Instructions ?Recorded ?Confirmed ?Last Taken ?Type dextroamphetamine-amphetamine ER 10 mg PO DAILY 12/22/21 07/15/24 Unknown History 30 mg 24hr capsule,extend release quetiapine 25 mg tablet 50 mg PO PRN PRN (Drug) Ingestion 05/12/22 07/15/24 Unknown History Allergies Allergy/AdvReac Type Severity Reaction Status Date / Time amoxicillin Allergy Severe Hives Verified 12/16/24 15:20 lamotrigine Allergy Severe Hives Verified 12/16/24 15:20 metoclopramide Allergy Severe Other Verified 12/16/24 15:20 sulfamethoxazole (From Allergy Severe Confusion Verified 12/16/24 15:20 Bactrim) trimethoprim (From Bactrim) Allergy Severe Confusion Verified 12/16/24 15:20 iron AdvReac Severe Vomiting Verified 12/16/24 15:20 Review of Systems Review of Systems: All systems reviewed & are unremarkable except as noted in HPI and below PMFSH Past Medical History Medical History Bipolar 1 disorder, mixed, moderate Anxiety Depression Seizure Pancreatitis Pulmonary embolism Lupus Surgical History Surgical History Previous section History of cholecystectomy (Unknown) Family History Family History Grandparent DVT (deep venous thrombosis) Cancer Heart disease Thyroid disorder Father Diabetes mellitus Depression Cerebrovascular accident Social History Social History Smoking status: Never smoker Alcohol intake: never Substance use: never Substance use type: marijuana and methamphetamine Do You Feel Safe in your Home?: Yes Lack of Transportation: No Lack of Food: Never True Current Housing: I Have Housing Concerned About Future Housing: No Difficulty Paying Gas/Electric Bills: No Difficulty Paying for Meds: No Currently Unemployed: No Education: High School Diploma/GED Difficulty w/ Childcare or Family Care: No Gender identity (if verbalized by the patient): Female Sexual Orientation (if Verbalized by the Patient): Straight or Heterosexual Spiritual care concerns: No Exam Const: General: healthy appearing and no acute distress Nutritional Appearance: well nourished Orientation/consciousness: patient oriented x3 Limitations: no limitations HENMT: Head: normal to inspection Mouth: Yes Normal oral and palatal mucosa present Eyes: EOM: EOMs intact bilaterally Neck: Neck: normal visual inspection and no meningeal signs Chest: Chest palpation & inspection: normal inspection of the chest Resp: Effort & Inspection: normal respiratory effort Auscultation: clear to auscultation bilaterally Cardio: Rate: regular rate Rhythm: regular rhythm GI: GI Palp: Yes Soft to palpation and Yes Tenderness to palpation present (GI) Auscultation: normal bowel sounds Skin: General skin exam: normal color Wounds: no wounds Other: urticaria to trunk and extremities Neuro: General: patient oriented x3, moves all extremities and no focal motor deficits Speech: normal speech Extrem: General: normal to inspection and no clubbing, cyanosis or edema Psych: Mental Status: mental status grossly normal Affect: normal affect Attitude: cooperative Course Vital Signs Vital signs: Vital Signs Temperature 97.8 F 12/19/24 09:24 Pulse Rate 102 H 12/19/24 09:24 Respiratory Rate 18 12/19/24 09:24 Blood Pressure 114/81 12/19/24 09:24 Pulse Oximetry 100 12/19/24 09:24 Oxygen Delivery Room Air 12/19/24 09:24 Temperature 97.8 F 12/19/24 09:24 Pulse Rate 84 12/19/24 12:01 Respiratory Rate 16 12/19/24 12:01 Blood Pressure 122/82 12/19/24 12:01 Pulse Oximetry 100 12/19/24 12:03 Oxygen Delivery Room Air 12/19/24 09:24 MDM - Allergic Reaction MDM Narrative Medical decision making narrative: Pt here for persistent urticaria thought to be related t new medicine. Will treat again with benadryl and decadron and pepcid and epi and recheck. Pt feel better after meds, rash improved. Will extend prednisone and wean dose Differential Diagnosis Differential diagnosis: Likely anaphylaxis, allergic reaction, angioedema, adverse reaction to drug and urticaria Discharge Plan Discharge Clinical Impression: Urticaria Patient Disposition: Home Condition: Improved Instructions: Antibiotic Form, Urticaria (ED) Patient Language: Eritrean Prescriptions: New prednisone 10 mg tablets,dose pack See Taper PO DAILY 12 Days Qty: 42 0RF Taper: Prednisone Taper from 60 mg;12 days 60 mg DAILY for 2 Days and 0 Hour 50 mg DAILY for 2 Days and 0 Hour 40 mg DAILY for 2 Days and 0 Hour 30 mg DAILY for 2 Days and 0 Hour 20 mg DAILY for 2 Days and 0 Hour 10 mg DAILY for 2 Days and 0 Hour No Action quetiapine 25 mg tablet 50 mg PO PRN PRN (Reason: (Drug) Ingestion) dextroamphetamine-amphetamine 30 mg capsule,extended release 24hr 10 mg PO DAILY hydrocodone-acetaminophen 5-325 mg tablet 1 tablet PO Q6H PRN (Reason: pain) Qty: 25 0RF nitrofurantoin monohyd/m-cryst [Macrobid] 100 mg capsule 100 mg PO Q12H 5 Days Qty: 10 0RF Rx Instructions: must administer with a meal/food naproxen [Naprosyn] 500 mg tablet 500 mg PO BID PRN (Reason: pain) Qty: 14 0RF cyclobenzaprine 10 mg tablet 10 mg PO TID PRN (Reason: muscle spasm) Qty: 20 0RF cephalexin 500 mg capsule 500 mg PO Q6H 7 Days Qty: 28 0RF prednisone 50 mg tablet 50 mg PO DAILY Qty: 5 0RF Follow-up/Referrals: Aurea Lott [Other]
[2024-12-19] MEDS: dexAMETHasone SOD PHOS INJ 10 MG/ML 1 ML VIAL IV PUSH (10:48)
[2024-12-19] MEDS: FAMOTIDINE 20 MG/2 ML VIAL IV PUSH (10:52)
[2024-12-19] MEDS: EPINEPHrine HCL INJ 1 MG/ML AMPUL 0.3 MG SUB-Q (10:58)
== END 2024-12-19 12:16 | disposition home or self-care (01) ==
PROVIDERS: Emergency Provider Emergency Medicine
DX: L50.9 Urticaria, unspecified (principal)
CPT/HCPCS: 96372; 96374; 96375; 99284; J0166; J1100; J1200

== ENCOUNTER 2024-12-21 08:46 | Emergency (ER) | payer OTHER, SELFPAY ==
--- NOTE | ~2024-12-21 | XR_ITS ---
EXAMINATION: XR chest 1V portable COMPARISON: No comparisons available. HISTORY: Systemic lupus flare FINDINGS: The lungs are clear, no effusion. No pneumothorax. Heart is normal size. Mediastinal and hilar contours are within normal limits. Bony thorax no acute abnormality. Miscellaneous: None Impression: No acute cardiopulmonary abnormality. Reviewed, dictated and finalized at location A. Impression: No acute cardiopulmonary abnormality.
[2024-12-21 08:52] VITALS: BP 127/91; PULSE 131; RESP 20; TEMP 36.6; O2SAT 100
--- NOTE | 2024-12-21 10:19 | ED.GENADULT ---
HPI - General Adult General Chief complaint: Skin/Abscess/Foreign Body Stated complaint: hives Time Seen by Provider: 12/21/24 10:09 Source: patient Mode of arrival: ambulatory Limitations: no limitations History of Present Illness HPI narrative: 34 years old white female came to the ED by private car complaining of itching painful rash all over her body started 1 week ago, has been on steroid for the last 2 visit to our emergency room without any improvement. History of skin allergy in the past, patient report started on lamotrigine recently for seizure-like active 2 days later started having the above symptoms. Last ED visit was 2 days ago and was discharged on prednisone. History of systemic lupus non stop taking her medication 1 year ago, seizure, anxiety, depression. She does not smoke cigarettes or drink alcohol, uses marijuana occasionally. She denies any trouble breathing or swallowing. Related Data Home Medications ?Medication ?Instructions ?Recorded ?Confirmed ?Last Taken ?Type dextroamphetamine-amphetamine ER 10 mg PO DAILY 12/22/21 07/15/24 Unknown History 30 mg 24hr capsule,extend release quetiapine 25 mg tablet 50 mg PO PRN PRN (Drug) Ingestion 05/12/22 07/15/24 Unknown History Allergies Allergy/AdvReac Type Severity Reaction Status Date / Time amoxicillin Allergy Severe Hives Verified 12/21/24 09:39 lamotrigine Allergy Severe Hives Verified 12/21/24 09:39 metoclopramide Allergy Severe Other Verified 12/21/24 09:39 sulfamethoxazole (From Allergy Severe Confusion Verified 12/21/24 09:39 Bactrim) trimethoprim (From Bactrim) Allergy Severe Confusion Verified 12/21/24 09:39 iron AdvReac Severe Vomiting Verified 12/21/24 09:39 Review of Systems Review of Systems: All systems reviewed & are unremarkable except as noted in HPI and below PMFSH Past Medical History Medical History Bipolar 1 disorder, mixed, moderate Anxiety Depression Seizure Pancreatitis Pulmonary embolism Lupus Surgical History Surgical History Previous section History of cholecystectomy (Unknown) Family History Family History Grandparent DVT (deep venous thrombosis) Cancer Heart disease Thyroid disorder Father Diabetes mellitus Depression Cerebrovascular accident Social History Social History Smoking status: Never smoker Alcohol intake: never Substance use: never Substance use type: marijuana and methamphetamine Do You Feel Safe in your Home?: Yes Lack of Transportation: No Lack of Food: Never True Current Housing: I Have Housing Concerned About Future Housing: No Difficulty Paying Gas/Electric Bills: No Difficulty Paying for Meds: No Currently Unemployed: No Education: High School Diploma/GED Difficulty w/ Childcare or Family Care: No Gender identity (if verbalized by the patient): Female Sexual Orientation (if Verbalized by the Patient): Straight or Heterosexual Spiritual care concerns: No Exam Narrative: General appearance: Well-developed, well-nourished Skin: Maculopapular rash all over mainly the upper back, upper chest upper extremity bilaterally Head: Normocephalic, nontraumatic Eyes: Clear conjunctiva ENT: Oropharynx normal, ears normal, nose normal, mouth sores Neck: Supple, nontender Chest and respiratory: Airway patent, no respiratory distress, no accessory muscle use Heart: Regular rate/rhythm Abdomen: Soft, nontender, no organomegaly, quiet bowel sounds Vascular: Normal peripheral pulses, normal capillary refill. Musculoskeletal: Normal range of motion, nontender back Neurologic: Alert and oriented ?3, KENNEL WORKER is normal as tested, no gross motor deficit Course Vital Signs Vital signs: Vital Signs Temperature 36.6 C 12/21/24 08:52 Pulse Rate 131 H 12/21/24 08:52 Respiratory Rate 20 12/21/24 08:52 Blood Pressure 127/91 H 12/21/24 08:52 Pulse Oximetry 100 12/21/24 08:52 Oxygen Delivery Room Air 12/21/24 08:52 Temperature 36.6 C 12/21/24 08:52 Pulse Rate 107 H 12/21/24 10:47 Respiratory Rate 20 12/21/24 10:47 Blood Pressure 127/78 12/21/24 10:47 Pulse Oximetry 100 12/21/24 10:47 Oxygen Delivery Room Air 12/21/24 08:52 Medical Decision Making MDM Narrative Medical decision making narrative: Patient came to the ED with itching painful skin rash including mouth sores started 1 week ago. History of systemic lupus not on medication for the last 1 year. Vital signs showing heart rate of 131 otherwise within normal limit Physical examination showing macular papular rash all over mainly upper chest upper back upper extremity and lower extremity bilaterally, Differential diagnosis systemic lupus flare, drug allergic reaction, contact dermatitis Blood workup today includes CBC, CMP, sed rate, TSH showed sed rate 54, otherwise within normal limit Urinalysis showed evidence of infection Patient received Cipro 500 mg p.o. prior to discharge Diagnosis systemic lupus flare, acute dermatitis, urinary tract infection My recommendation to follow-up with her water pollution specialist as soon as possible, Differential Diagnosis Differential Diagnosis: As above Vital Signs Vital Signs: Vital Signs Temperature 36.6 C 12/21/24 08:52 Pulse Rate 131 H 12/21/24 08:52 Respiratory Rate 20 12/21/24 08:52 Blood Pressure 127/91 H 12/21/24 08:52 Pulse Oximetry 100 12/21/24 08:52 Oxygen Delivery Room Air 12/21/24 08:52 Temperature 36.6 C 12/21/24 08:52 Pulse Rate 107 H 12/21/24 10:47 Respiratory Rate 12/21/24 10:47 Blood Pressure 127/78 12/21/24 10:47 Pulse Oximetry 100 12/21/24 10:47 Oxygen Delivery Room Air 12/21/24 08:52 Lab Data 12/21/24 11:12 12/21/24 11:12 Labs: Lab Results 12/21/24 12/21/24 12/21/24 Range/Units 11:12 11:15 11:19 WBC 6.9 (4.5-10.0) K/mm3 RBC 4.86 (4.2-5.4) M/mm3 Hgb 12.8 (12.0-15.0) g/dL Hct 38.6 (37.0-47.0) % MCV 79.4 L (80-100) fl MCH 26.3 (26-34) pg MCHC 33.2 (32-36) g/dl RDW 14.6 H (11.5-14.5) % Plt Count 317 D (150-375) k/mm3 MPV 10.1 (7.4-10.4) fl Immature Gran % (Auto) 0.4 (0-0.5) % Neut % (Auto) 75.2 H (45.5-73.1) % Lymph % (Auto) 15.5 L (18.3-44.2) % [place] % (Auto) 6.0 (2.6-8.5) % Eos % (Auto) 2.5 (0-4.4) % Baso % (Auto) 0.4 (0.2-1.2) % Lymph # (Auto) 1.06 (0.9-3.2) K/mm3 [place] # (Auto) 0.4 (0.1-0.6) K/mm3 Eos # (Auto) 0.2 (0-0.3) K/mm3 Baso # (Auto) 0.0 (0.0-0.1) K/mm3 Abs Immat Gran (auto) 0.03 (0.00-0.031) K/mm3 Absolute Neuts (auto) 5.2 (1.3-6.7) K/mm3 Absolute Nucleated RBC 0.000 (0.0-0.012) K/mm3 Nucleated RBC % 0.0 (0.0-0.2) % ESR 54 H (0-20) mm/hr Sodium 136 L (137-145) mmol/L Potassium 3.8 (3.4-5.0) mmol/L Chloride 107 (98-107) mmol/L Carbon Dioxide 19 L (22-30) mmol/L Anion Gap 10 (4-12) mmol/L BUN 16 (7-17) mg/dL Creatinine 0.56 L (0.7-1.0) mg/dL Estim Creat Clear Calc 105 ml/min Estimated GFR > 60 (59 - ) Glucose 105 (65-110) mg/dL Calcium 9.0 (8.4-10.2) mg/dL Total Bilirubin 0.9 (0.2-1.3) mg/dL AST 76 H (14-36) U/L ALT 58 H (6-35) U/L Alkaline Phosphatase 74 (38-126) U/L Total Creatine Kinase 58 (30-135) U/L Total Protein 8.2 (6.3-8.2) g/dL Albumin 4.1 (3.5-5.1) g/dL TSH Pending Urine Color Dark yellow (Yellow) Urine Appearance Cloudy H (Clear) Urine pH 6.0 (5.0-9.0) Ur Specific Sunshine 1.021 (1.001-1.035) Urine Protein Trace (Negative) mg/dL Urine Glucose (UA) Negative (Negative) mg/dL Urine Ketones Negative (Negative) mg/dL Ur Blood (Man) Negative (Negative) Urine Nitrate Positive H (Negative) Urine Bilirubin Negative (Negative) Urine Urobilinogen 1.0 (<2.0) mg/dL Add Ur Microanalysis Reviewed Leukocyte Esterase Rfl 2+ H (Negative) TIFFANI/UL Urine RBC 3-5 H (0-2) /hpf Urine WBC 51-100 H (0-3) /hpf Ur Squamous Epith Cells Moderate (Few) /hpf Urine Bacteria 4+ /hpf Urine Casts 0-2 POC Urine HCG, Qual Negative (Negative) Discharge Plan Discharge Clinical Impression: Urinary tract infection, Systemic lupus erythematosus (SLE) in adult, Acute dermatitis Patient Disposition: Home Condition: Stable Instructions: Antibiotic Form, Urinary Tract Infection in Women (DC), Lupus Erythematosus (DC), General Allergic Reaction (ED) Additional Instructions: Return if symptoms are worsening , call your family physician for appointment, take Tylenol as as needed for aches and pain, continue home medications. Follow-up with your family physician and your water pollution specialist as soon as possible Patient Language: Afghan Prescriptions: New nitrofurantoin monohyd/m-cryst [Macrobid] 100 mg capsule 100 mg PO Q12H 5 Days Qty: 10 0RF Rx Instructions: must administer with a meal/food cetirizine [Zyrtec] 10 mg tablet,chewable 10 mg PO BID Qty: 30 0RF No Action quetiapine 25 mg tablet 50 mg PO PRN PRN (Reason: (Drug) Ingestion) dextroamphetamine-amphetamine 30 mg capsule,extended release 24hr 10 mg PO DAILY hydrocodone-acetaminophen 5-325 mg tablet 1 tablet PO Q6H PRN (Reason: pain) Qty: 25 0RF nitrofurantoin monohyd/m-cryst [Macrobid] 100 mg capsule 100 mg PO Q12H 5 Days Qty: 10 0RF Rx Instructions: must administer with a meal/food naproxen [Naprosyn] 500 mg tablet 500 mg PO BID PRN (Reason: pain) Qty: 14 0RF cyclobenzaprine 10 mg tablet 10 mg PO TID PRN (Reason: muscle spasm) Qty: 20 0RF cephalexin 500 mg capsule 500 mg PO Q6H 7 Days Qty: 28 0RF prednisone 50 mg tablet 50 mg PO DAILY Qty: 5 0RF prednisone 10 mg tablets,dose pack See Taper PO DAILY 12 Days Qty: 42 0RF Taper: Prednisone Taper from 60 mg;12 days 60 mg DAILY for 2 Days and 0 Hour 50 mg DAILY for 2 Days and 0 Hour 40 mg DAILY for 2 Days and 0 Hour 30 mg DAILY for 2 Days and 0 Hour 20 mg DAILY for 2 Days and 0 Hour 10 mg DAILY for 2 Days and 0 Hour Follow-up/Referrals: PHYSICIAN NOT ON STAFF,NONSTAFF [Primary Care Provider]
--- OUTSIDE RECORDS SUMMARY | 2024-12-21 10:22 | XMS_ITS | Clinical Summary ---
Author Organization [facility] Address [address] [place] [address] Care Team Providers Care Cable Television Access Coordinator Name Role Phone Aurea Lott DO Primary Care Provider [phone] Jim Moreland MD Unavailable [phone] Source Comments [facility],non-owned Affiliates and Associated Physician Practices is amultiple site organization consisting of ambulatory clinics and hospital sitesin [place], [place], [place] and [place]. This disclosure is being madepursuant to the Care Everywhere program and may not contain all information available regarding this patient. Last updated 17.[facility] [employer] Allergies Active Allergy Reactions Criticality Noted Date Comments Amoxicillin Urticaria Medium 04/01/2019 Sulfamethoxazole W-Trimethoprim GUNNERY/ORDNANCE OFFICER Dysfunction 08/09/2017 mentql confusion Iron Vomiting 10/20/2020 Vomits oral iron Lamotrigine Itching 04/21/2022 Penicillins Urticaria,Unknown Medium 09/25/2020 Metoclopramide GUNNERY/ORDNANCE OFFICER Dysfunction 08/09/2017 Paralysis Medications * This document [...] tabletIndications:Sy stemic lupus erythematosus (SLE) in adult (HCC),senior living current use of immunosuppressive drug,Therapeutic drug monitoring [...] the patient should be referred to a general doc for further care. If there is no [...] risk of heart block with +SSA; undergoing [place] interval surveillance Q2 weeks from 16 to 28 weeks (AHA recommendations). Restrictive lung disease 08/09/2017 Overview (09/25/2020): Related to SLE, stable - Followed by photocopy operator, next visit 12/02/20 PFTs 08/28 Interpretation: [...] 2012: related to ICU stay Anxiety 07/31/2017 senior living current use of immunosuppressive drug 07/31/2017 SLE (systemic lupus erythematosus) 12/06/2012 Overview (09/25/2020): Diagnosed in 2007 (Positive SSA Ab. Dx based on cerebritis, pancreatitis, restrictive lung disease, with +JEAN-PAUL, dsDNA, Sm, SOIL FIELD TECHNICIAN chromatin). Sees Rheumatology. 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 For additional information please refer to http://education.CultureAlley/faq/ZCY11u2 (This link is being provided for informational/ educational purposes only.) REPORT COMMENT: FASTING:NO Test Performed at: [facility] [address] [place] [address] ANDRE ARAUJO DO,MPH Blood BLOOD SPECIMEN / Unknown 10/09/2020 10/09/2020 2:07 PM CDT us Isa Rutledge MD LAB - CHEMISTRY ORDERABLES Final Result [facility] [address] [place] [address] * HIV-1 HIV-2 ANTIBODY + HIV P24 [...] purpose. For additional information please refer to http://education.CultureAlley/faq/CKL807 (This link is being provided for informational/ educational purposes only.) The performance of this assay has not been clinically validated in patients less than 2 years old. Test Performed at: [facility] [address] [place] [address] ANDRE ARAUJO DO,MPH Blood BLOOD SPECIMEN / Unknown 10/09/2020 10/09/2020 2:07 PM CDT Isa Rutledge MD LAB - CHEMISTRY ORDERABLES Final Result [facility] [address] [address] [place] [phone] * PAP IMAGE-GUIDED RFLX HPV+CT/NG+TRICH (05/15/2020 3:11 PM HEAVY EQUIPMENT SALES MANAGER) Case Report Gynecologic Cytology Report Case: [id number] Authorizing Provider: Garrick Farley MD Collected: 05/15/2020 03:11 PM Ordering Location: [facility] Received: 05/18/2020 12:24 PM [facility] Screen: Guru Ellis Specimen: THINPREP - IMAGE GUIDED, Cervicovaginal 05/19/2020 3:44 PM HEAVY EQUIPMENT SALES MANAGER [facility] LMP preg 05/19/2020 3:44 PM HEAVY EQUIPMENT SALES MANAGER [facility] Menstrual Status 05/19/19 3:44 PM HEAVY EQUIPMENT SALES MANAGER [facility] Comment:7w6d Specimen Adequacy Satisfactory for evaluation, endocervical/trans formation zone component present. 05/19/2020 3:44 PM HEAVY EQUIPMENT SALES MANAGER [facility] Categorization Negative for intraepithelial lesion or malignancy. 05/19/2020 3:44 PM HEAVY EQUIPMENT SALES MANAGER [facility] Interpretation LEASE ADMINISTRATION SUPERVISOR Negative for intraepithelial lesion or malignancy. 05/19/2020 3:44 PM HEAVY EQUIPMENT SALES MANAGER [facility] at [address] HEAVY EQUIPMENT SALES MANAGER Other Predominance of Coccobacilli consistent with shift in vaginal nenita (vaginosis). Inflammation present. 05/19/2020 3:44 PM HEAVY EQUIPMENT SALES MANAGER [facility] Pap Footnote The Pap Smear is a screening test. False positive and false negative results occur. Negative results do not preclude abnormalities, thus clinical correlation is required. This specimen was evaluated by the MetaplacePrep Imaging System along with an additional manual rescreening by a videotape operator and/or pathologist. 05/19/2020 3:44 PM HEAVY EQUIPMENT SALES MANAGER [facility] Embedded Images 3:44 PM HEAVY EQUIPMENT SALES MANAGER [facility] Pathology/Cytolo gy VAGINA AND CERVIX, CS / Unknown 05/15/2020 3:11 PM HEAVY EQUIPMENT SALES MANAGER 05/18/2020 12:24 PM HEAVY EQUIPMENT SALES MANAGER us Garrick Farley MD LAB - PATHOLOGY[facility] Final Result [facility] [address] [phone] from Last 3 Months or Most Recently Relevant to Health Maintenance Insurance [facility] Advance Directives * Full Code [...] 4:56 AM 10/02/2017 7:23 PM Care Teams Cable Television Access Coordinator Relationship Specialty Start Date End Date Aurea Lott DO [address] [place] [phone] PCP - General 10/14/21 Jim Moreland MD [address] [facility] [place] [phone] Resident - PCP Internal Medicine 10/14/21
--- OUTSIDE RECORDS SUMMARY | 2024-12-21 10:22 | XMS_ITS | Encounter Summary ---
Author Organization [facility] Address [address] [place] [address] Care Team Providers Care Professor Of Mathematics Name Role Phone Estephania Moise PRODUCT/DEVICE TECHNOLOGIST-ASSEMBLER [employer] Primary Care Provider Aruea Lott DO Primary Care Provider [phone] Jim Moreland MD Unavailable [phone] Encounter Details Date Type Department Care Team (Late st Contact Info) Description 12/17/2019 Telephone [facility] [address] [place] [address] Akosua Worley MD No info available Social History Tobacco Use Types Packs/Day Years Used Date Smoking Tobacco: Never Smokeless Tobacco: Never Alcohol Use Standard Drinks/Week Comments No 0 (1 standard drink = 0.6 oz pur e alcohol) VERY RARELY Comments No Sex and Gender Information Value Date Recorded Sex Assigned at Female 07/13/2021 8:56 AM CDT Legal Sex Female 5:42 AM ANODE ADJUSTER Gender Identity Female 07/13/2021 8:56 AM CDT Sexual Orientation Bisexual 07/13/2021 8: 56 AM CDT 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 She was originally scheduled with [...] on filedocumented in this encounter Care Teams Professor Of Mathematics Relationship Specialty Start Date End Date Estephania Moise, PRODUCT/DEVICE TECHNOLOGIST-ASSEMBLER [employer] [address] [place] [address] PCP - General 08/15/17 10/13/21 Aurea Lott DO [address] [facility] [place] [address] PCP - General 10/14/21 Jim Moreland MD [address] [facility] [place] [place] [phone] Resident - PCP Internal Medicine 10/14/21 documented as of this encounter
--- OUTSIDE RECORDS SUMMARY | 2024-12-21 10:22 | XMS_ITS | Encounter Summary ---
Author Organization [facility] Address [address] [place] [address] Care Team Providers Care Supervisor Engine Assembly Name Role Phone Estephania Moise APRN-MESSAGE BROKER DEVELOPER Primary Care Provider Aurea Lott DO Primary Care Provider Jim Moreland MD Unavailable [phone] Reason for Visit * Reason Onset Date Comments POST COMPLICATIONS 10/09/2017 post p artum depression symptoms Encounter Details Date Type Department Care Team (Late st Contact Info) Description 10/09/2017 Nurse Triage [facility] General Internal Medicine [address] [facility] [address] [place] [address] Estephania Moise APRN-CNP [address] [facility] [place] [address] POST COMPLICATIONS (post depression symptoms ) Social History Tobacco Use Types Packs/Day Years Used Date Smoking Tobacco: Never Smokeless Tobacco: Never Alcohol Use Standard Drinks/Week Comments No 0 (1 standard drink = 0.6 oz pur e alcohol) Comments No Sex and Gender Information Value Date Recorded Sex Assigned at Female 07/13/2021 8:56 AM CDT Legal Sex Female 5:42 AM EXPERIENTIAL THERAPIST Gender Identity Female 07/13/2021 8:56 AM CDT Sexual Orientation Bisexual 07/13/2021 8: 56 AM CDT 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 Scheduled 10-10-17 @ 2:00 with DECK WORKER Scheduled 10-10-17 @ 9:20am [facility] Reason for [...] Patient reports September 29 Protocols used: - [id number] Disposition provided to be seen in acute care clinic within 3 days per protocol. Patient warm transfered to [facility] scheduling team for assistance with scheduling an appointment..If anything new develops,if anything gets worse or if you become increasingly concerned for any reason, please seek out immediate medical Attention. documented in this encounter Plan of Treatment Not on file documented as of this encounter Visit Diagnoses Not on filedocumented in this encounter Care Teams Supervisor Engine Assembly Relationship Specialty Start Date End Date Estephania Moise APRN-MESSAGE BROKER DEVELOPER [address] [place] [address] PCP - General 08/15/17 10/13/21 Aurea Lott DO [address] [facility] [place] [phone] PCP - General 10/14/21 Jim Moreland MD [address] [place] [address] Resident - [facility] Internal Medicine 10/14/21 documented as of this encounter
--- OUTSIDE RECORDS SUMMARY | 2024-12-21 10:22 | XMS_ITS | Clinical Summary ---
Author Organization [facility] Address [address] [place] [address] Care Team Providers Care Scutcher Tender Name Role Phone None, Provider MD Primary [...] Sex Assigned at Female 05/02/2023 2:01 PM SAMPLE EXAMINER Legal Sex Female 9:31 AM CDT Gender Identity Female 05/02/2023 2:01 PM SAMPLE EXAMINER Sexual Orientation Bisexual 05/02/2023 2: 01 PM SAMPLE EXAMINER Last Filed Vital Signs Vital Sign Reading Time Taken Comments Blood Pressure 129/83 05/02/2023 2:02 PM SAMPLE EXAMINER Pulse 78 05/02/2023 2:02 PM SAMPLE EXAMINER Temperature 36.4 C (97.6 F) 05/02/2023 10:24 AM SAMPLE EXAMINER Respiratory Rate 18 05/02/2023 2:02 PM SAMPLE EXAMINER Oxygen Saturation 100% 05/02/2023 2:02 PM SAMPLE EXAMINER Inhaled Oxygen Concentration - - Weight 68 kg (150 lb) 05/02/2023 10:24 AM SAMPLE EXAMINER Height 154.9 cm (5' 1) 05/02/2023 10:24 AM SAMPLE EXAMINER Body Mass Index 28.34 05/02/2023 10:24 AM SAMPLE EXAMINER Plan of Treatment Health Maintenance Due Date [...] patient's age to complete this topic Insurance [place] [facility] [place] [employer] Care Teams Scutcher Tender Relationship Specialty Start Date End Date None, Provider, PCP - General 03/31/21
--- OUTSIDE RECORDS SUMMARY | 2024-12-21 10:22 | XMS_ITS | Encounter Summary ---
Author Organization [facility] Health Address [address] [facility] [facility] [place] [address] Care Team Providers Care Membership Counselor Name Role Phone Estephania Moise APRN-TESTING TECH Primary Care Provider Aurea Lott DO Primary Care Provider Jim Moreland MD Unavailable [phone] Reason for Visit * Reason Onset Date Comments Headache 08/08/2018 Encounter Details Date Type Department Care Team (Late st Contact Info) Description 08/08/2018 Nurse Triage [facility] General Internal Medicine [address] [facility] [address] [place] [address] Estephania Moise APRN-TESTING TECH [address] OF [place] [address] Headache Social History Tobacco Use Types Packs/Day Years Used Date Smoking Tobacco: Never Smokeless Tobacco: Never Alcohol Use Standard Drinks/Week Comments No 0 (1 standard drink = 0.6 oz pur e alcohol) Comments No Sex and Gender Information Value Date Recorded Sex Assigned at Female 07/13/2021 8:56 AM CDT Legal Sex Female 5:42 AM HIGH SCHOOL BUSINESS TEACHER Gender Identity Female 07/13/2021 8:56 AM CDT [...] [place] called pt d/t mychart message received. [employer]Grow - Dein Lernprogramm im Lebenhart message I???m in a lot of pain [...] conference to schedulers. Upon conference, pt disconnected. Records Technician verbalized will reach back out to pt to try and reach to schedule ACS visit. Reason for Disposition ??? [1] Weakness of the face, arm or leg on one side of the body AND [2] new onset Protocols used: [id number] Called pt back and unable to reach. Left VM to CB office to sched for ACS visit and left CB# [phone] and closing statement. Appt sched nicole/ Estephania Gutierrez 08/15/18 @ 9:50am documented in this encounter Plan of Treatment Not on file documented as of this encounter Visit Diagnoses Not on filedocumented in this encounter Care Teams Membership Counselor Relationship Specialty Start Date End Date Estephania Moise APRN-TESTING TECH [address] [place] [address] PCP - General 08/15/17 10/13/21 Aurea Lott DO [address] DIV OF [facility] [place] [phone] PCP - General 10/14/21 Jim Moreland MD [address] [place] [id number] Resident - PCP Internal Medicine 10/14/21 documented as of this encounter
--- OUTSIDE RECORDS SUMMARY | 2024-12-21 10:22 | XMS_ITS | Encounter Summary ---
Author Organization [facility] Health Address [address] [facility] [place] [address] Care Team Providers Care Environmental Remediation Engineer Name Role Phone Estephania Moise APRN-FRAME RUNNER Primary Care Provider Aurea Lott DO Primary Care Provider [phone] Jim Moreland MD Unavailable [phone] Reason for Visit * Reason Onset Date Comments Appointment 03/19/2018 Encounter Details Date Type Department Care Team (Late st Contact Info) Description 03/19/2018 Telephone [facility] General Internal Medicine [address] [facility] [address] [place] [address] Estephania Moise APRN-FRAME RUNNER [address] OF [facility] [place] [address] Appointment Social History Tobacco Use Types Packs/Day [...] a message t contact the scheduling department [phone] CTIONS RECOVERY SPECIALIST * Telephone Encounter - Zohreh Christensen - 03/20/2018 10:37 AM CST 2nd Attempt Called the patient and left a message to contact the scheduling department at [phone] CTIONS RECOVERY SPECIALIST * Telephone Encounter - Zohreh Christensen - 03/19/2018 10:50 AM CST 1st attempt Called pt left message to contact scheduling department at [phone] CTIONS RECOVERY SPECIALIST documented in this encounter Plan of Treatment Not on file documented as of this encounter Visit Diagnoses Not on filedocumented in this encounter Care Teams Environmental Remediation Engineer Relationship Specialty Start Date End Date Estephania Moise, POLICY CHECKER-FRAME RUNNER [address] [place] [address] PCP - General 08/15/17 10/13/21 Aurea Lott DO [address] OF [facility] [place] [address] PCP - General 10/14/21 Jim Moreland MD [address] [facility] [place] [address] Resident - PCP Internal Medicine 10/14/21 documented as of this encounter
--- OUTSIDE RECORDS SUMMARY | 2024-12-21 10:22 | XMS_ITS | Encounter Summary ---
Author Organization [facility] Health Address [address] [facility] [place] [address] Care Team Providers Care Part Time Flexible Clerk Name Role Phone Aurea Lott DO Primary Care Provider [phone] Jim Moreland MD Unavailable [phone] Reason for Visit * Reason Onset Date Comments MEDICATION REFILL 12/20/2021 Encounter Details Date Type Department Care Team (Late st Contact Info) Description 12/20/2021 Refill [facility] Rheumatology [address] [place] [id number] Luanne Downs MD [address] [place], [place] [id number] MEDICATION REFILL Social History Tobacco Use Types [...] AM CDT 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 Reglan [Metoclopramide] HEDDLER Dysfunction Paralysis ??? Bactrim [Sulfamethoxazole W-Trimethoprim] HEDDLER Dysfunction mentql confusion ??? Iron Vomiting Vomits [...] Penicillins Urticaria and Unknown ??? Reglan [Metoclopramide] HEDDLER Dysfunction Paralysis ??? Bactrim [Sulfamethoxazole W-Trimethoprim] HEDDLER Dysfunction mentql confusion ??? Iron Vomiting Vomits [...] Systemic lupus erythematosus (SLE) in adult (HCC) [facility] current use of immunosuppressive drug Therapeutic drug monitoring Encounter for therapeutic drug monitoring documented in this encounter Care Teams Part Time Flexible Clerk Relationship Specialty Start Date End Date Aurea Lott DO [address] [facility] [address] DIV OF [facility] [place] [phone] PCP - General 10/14/21 Jim Moreland MD [address] [facility] [place] [phone] Resident - PCP Internal Medicine 10/14/21 documented as of this encounter
--- OUTSIDE RECORDS SUMMARY | 2024-12-21 10:22 | XMS_ITS | Encounter Summary ---
Author Organization [facility] Address [address] [facility] [place] [address] Care Team Providers Care Monument Installer Name Role Phone Estephania Moise APRN-MAGNESIUM MILL OPERATOR Primary Care Provider Aurea Lott DO Primary Care Provider Jim Moreland MD Unavailable [phone] Reason for Visit * Reason Onset Date Comments MEDICATION REFILL 02/26/2018 Encounter Details Date Type Department Care Team (Late st Contact Info) Description 02/26/2018 Refill [facility] Rhe[facility] [address] [place] [address] Jana Saenz DO [address] [place] [address] MEDICATION REFILL Social History Tobacco Use Types Packs/Day Years Used Date Smoking Tobacco: Never Smokeless Tobacco: Never Alcohol Use Standard Drinks/Week Comments No 0 (1 standard drink = 0.6 oz pur e alcohol) Comments No Sex and Gender Information Value Date Recorded Sex Assigned at Female 07/13/2021 8:56 AM CDT 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 Jana Saenz DO Rheumatology Fellow [facility] Pager: [phone] AW GRADER documented in this encounter Plan of Treatment Not on file documented as of this encounter Visit Diagnoses Diagnosis Systemic lupus erythematosus (SLE) in adult (HCC) Anxiety Anxiety state, unspecified with one fetus in second trimester (HCC) [facility] current use of immunosuppressive drug Encounter for therapeutic drug monitoring documented in this encounter Care Teams Monument Installer Relationship Specialty Start Date End Date Estephania Moise APRN-MAGNESIUM MILL OPERATOR [address] [place] [address] PCP - General 08/15/17 10/13/21 Aurea Lott DO [address] [facility] 2[address] DIV OF [facility] [place] [address] PCP - General 10/14/21 Jim Moreland MD [address] [facility] [place] [phone] Resident - PCP Internal Medicine 10/14/21 documented as of this encounter
--- OUTSIDE RECORDS SUMMARY | 2024-12-21 10:22 | XMS_ITS | Encounter Summary ---
Author Organization [facility] Address [address] [facility] [place] [address] Care Team Providers Care Chemical Weigher Name Role Phone Estephania Moise APRN-COST CONTROL ANALYST Primary Care Provider Aurea Lott DO Primary Care Provider Jim Moreland MD Unavailable [phone] Reason for Visit * Reason Onset Date Comments Headache 08/06/2018 Encounter Details Date Type Department Care Team (Late st Contact Info) Description 08/06/2018 Telephone [facility] General Internal Medicine [address] [facility] [address] [place] [address] Estephania Moise APRN-COST CONTROL ANALYST [address] OF [place] [address] Headache Social History Tobacco Use Types Packs/Day Years Used Date Smoking Tobacco: Never Smokeless Tobacco: Never Alcohol Use Standard Drinks/Week Comments No 0 (1 standard drink = 0.6 oz pur e alcohol) Comments No Sex and Gender Information Value Date Recorded Sex Assigned at Female 07/13/2021 8:56 AM CDT 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 Gender Identity Female 07/13/2021 8:56 AM CDT [...] and is requesting to be contacted at [phone] by theprovider to further discuss this matter Message routed to the provider for further review and assistance documented in this encounter Plan of Treatment Not on file documented as of this encounter Visit Diagnoses Not on filedocumented in this encounter Care Teams Chemical Weigher Relationship Specialty Start Date End Date Estephania Moise, TAIL END RIDER-COST CONTROL ANALYST [address] [place] [address] PCP - General 08/15/17 10/13/21 Aurea Lott DO [address] [place] [address] PCP - General 10/14/21 Jim Moreland MD [address] [facility] [place] [phone] Resident - PCP Internal Medicine 10/14/21 documented as of this encounter
--- OUTSIDE RECORDS SUMMARY | 2024-12-21 10:22 | XMS_ITS | Encounter Summary ---
Author Organization [facility] Health Address [address] [facility] [place] [address] Care Team Providers Care Security Business Analyst Name Role Phone Estephania Moise APRN-BUSPERSON Primary Care Provider Aurea Lott DO Primary Care Provider [phone] Jim Moreland MD Unavailable [phone] Encounter Details Date Type Department Care Team (Late st Contact Info) Description 01/23/2018 Telephone [facility] General Internal Medicine [address] [facility] [address] [place] [address] Estephania Moise APRN-BUSPERSON [address] [facility] [place] [address] Social History Tobacco Use Types Packs/Day Years Used Date Smoking Tobacco: Never Smokeless Tobacco: Never Alcohol Use Standard Drinks/Week Comments No 0 (1 standard drink = 0.6 oz pur e alcohol) Comments No Sex and Gender Information Value Date Recorded Sex Assigned at Female 07/13/2021 8:56 AM CDT 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 Gender Identity Female 07/13/2021 8:56 AM CDT Sexual Orientation Bisexual 07/13/2021 8: 56 AM CDT 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
[2024-12-21] MEDS: LORATADINE 10 MG TABLET PO (10:44)
[2024-12-21] MEDS: EPINEPHrine HCL INJ 1 MG/ML AMPUL 0.3 MG IM (10:44)
[2024-12-21 10:47] VITALS: BP 127/78; PULSE 107; RESP 20; O2SAT 100
[2024-12-21] MEDS: SODIUM CHLORIDE 0.9% IV 1,000 ML 999 ML IV CONT (11:13)
[2024-12-21 11:21] LABS: Hematocrit 38.6 % (37.0-47.0); Hemoglobin 12.8 g/dL (12.0-15.0); Immature Granulocyte Percent A 0.4 % (0-0.5); Lymphocytes Absolute Auto 1.06 K/mm3 (0.9-3.2); Mean Corpuscular HGB Conc 33.2 g/dl (32-36); Mean Corpuscular Hemoglobin 26.3 pg (26-34); Mean Corpuscular Volume 79.4 fl (80-100); Nucleated Red Blood Cells Absolute Auto 0.000 K/mm3 (0.0-0.012); Nucleated Red Blood Cells Perc 0.0 % (0.0-0.2); Platelet Count Result 317 k/mm3 (150-375); Red Blood Count 4.86 M/mm3 (4.2-5.4); White Blood Count 6.9 K/mm3 (4.5-10.0)
[2024-12-21 11:21] LABS: BEDSIDEPREGUCG Negative (Negative)
[2024-12-21 11:34] LABS: Alanine Aminotransferase 58 U/L (6-35); Albumin Level 4.1 g/dL (3.5-5.1); Alkaline Phosphatase 74 U/L (38-126); Anion Gap 10 mmol/L (4-12); Aspartate Amino Transferase 76 U/L (14-36); Bilirubin,Total 0.9 mg/dL (0.2-1.3); Blood Urea Nitrogen 16 mg/dL (7-17); Calcium 9.0 mg/dL (8.4-10.2); Carbon Dioxide 19 mmol/L (22-30); Chloride 107 mmol/L (98-107); Creatine Kinase 58 U/L (30-135); Estimated CRCL calculation 105 ml/min; Estimated Glomerular Filt Rate > 60; Glucose 105 mg/dL (65-110); Potassium 3.8 mmol/L (3.4-5.0); Sodium 136 mmol/L (137-145); Total Protein 8.2 g/dL (6.3-8.2)
[2024-12-21 11:35] LABS: Add Urine Microscopic? YES; Appearance Urine Cloudy (Clear); Glucose Urine UA Negative (Negative); Leukocyte Esterase Ur 2+ LEU/UL (Negative); Need Manual Microscopic Reviewed; Nitrate Urine Positive (Negative); Non Pathogenic Casts 0-2; Specific Grav Ur 1.021 (1.001-1.035)
[2024-12-21 12:11] LABS: Thyroid Stimulating Hormone 7.550 uIU/mL (0.465-4.680)
[2024-12-21] MEDS: CIPROFLOXACIN 500 MG TAB PO (12:22)
== END 2024-12-21 12:27 | disposition home or self-care (01) ==
PROVIDERS: Emergency Provider Emergency Medicine
DX: N39.0 Urinary tract infection, site not specified (principal); M32.9 Systemic lupus erythematosus, unspecified; L30.9 Dermatitis, unspecified; F41.9 Anxiety disorder, unspecified; F32.A Depression, unspecified; Z86.711 Personal history of pulmonary embolism
CPT/HCPCS: 36415; 71045; 80053; 81001; 81025; 82550; 84443; 85025; 85652; 96360; 96372; 99283; A9270; J0166; J7030